=== PATIENT | female | born 1960 | race Caucasian/White ===

== ENCOUNTER 2023-03-03 12:23 | Outpatient (OUT) | payer OTHER, SELFPAY ==
--- NOTE | 2023-03-03 17:35 | CONS_ITS ---
PROCEDURE DATE: ??03/03/2023 PROCEDURE:? Left sural nerve injection. PREOPERATIVE DIAGNOSIS:? 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 POSTOPERATIVE DIAGNOSIS:? 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 SOLUTION USED FOR INJECTION:? 2 mL of 2% lidocaine and 2% mL of 0.25% Marcaine and 40 mg of Kenalog, a total of 5 mL, and 1 mL used for the injection. IMMEDIATE COMPLICATIONS:? None. PROCEDURE:? After informed consent was obtained from the patient, placed in the supine position.? Skin overlying the area was prepped with alcohol.? A 25 gauge 1 ? inch needle was inserted into the area of the left sural nerve.? After encountering the same, demonstrated by paresthesia, we re-directed the needle tip and the paresthesia completely resolved.? We injected 1 mL of solution.? Post-procedure, she reports dramatic reduction in her pain symptoms.? STEFANO
== END 2023-03-03 12:24 | disposition home or self-care (01) ==
LOC: PM 12:23
PROVIDERS: Visit Provider Anesthesiology Pain Medicine
DX: G58.8 Other specified mononeuropathies (principal)
CPT/HCPCS: 64450; G0463

== ENCOUNTER 2023-04-07 13:19 | Outpatient (OUT) | payer OTHER, SELFPAY ==
--- NOTE | 2023-04-07 | CONS_ITS ---
CONSULTATION DATE: ??04/07/2023 TO:? Dr. Dangelo HISTORY:? Patient returns today complaining of pain in her left ankle area.? She has undergone two sural nerve injections.? She reports post-op significant reduction in pain symptoms in the immediate post procedural period, lasting for a short period of time, with recurrence of pain back to baseline.? Also, of note, she has been having progressive pain in the left davis area.? She denies any change in bowel and bladder habits or new sensorimotor changes in the lower extremities.? She discontinued taking tramadol and baclofen, stating ineffectiveness, and she also has stopped using topical lidocaine patch and/or gel because of also ineffectiveness and inconvenience. EXAMINATION:? Notable for patient having dysesthesia and hyperesthesia overlying the distribution of the left sural nerve.? Patient also had significant myofascial dysfunction involving the left anterior tibialis with concomitant dorsiflexion of her left foot. IMPRESSION:? 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 RECOMMENDATIONS:? At this point, I have asked her to re-try topical lidocaine to the area in gel form, and also consideration of possible trigger point injection of the left anterior tibialis at her next visit.? She is to contact us by telephone in approximately 10 days? time to update us on her response to the change in medication with the use of the lidocaine gel as opposed to lidocaine patch. As part of providing excellent, safe, comprehensive care, the following was completed at our patient's visit: 1. A medication reconciliation and review to ensure accurate knowledge of current/active medications, including asking our patients to inform us about any [id number] medications or herbal remedies/nutritional supplements/alternative remedies. 2. A review to specifically ensure our patients have had annual screening for: elevated body mass index (BMI, see intake chart for exact total), tobacco use, screening for depression, and screening for unhealthy alcohol use.? When screening is concerning, patients are provided with education and the specific recommendation to discuss the concerning health issue and treatment options with their primary care provider. STEFANO
== END 2023-04-07 13:20 | disposition home or self-care (01) ==
LOC: PM 13:19
PROVIDERS: Visit Provider Anesthesiology Pain Medicine
DX: G58.8 Other specified mononeuropathies (principal); G89.29 Other chronic pain
CPT/HCPCS: G0463

== ENCOUNTER 2023-04-10 19:46 | Emergency (ER) | payer OTHER, SELFPAY ==
[2023-04-10 19:49] VITALS: BP 164/87; PULSE 79; RESP 16; TEMP 36.7; O2SAT 100
--- NOTE | 2023-04-10 19:51 | ED.GENADUL1 ---
HPI - General Adult General Chief complaint: Syncope Stated complaint: SYNCOPY Time Seen by Provider: 04/10/23 19:51 History of Present Illness HPI narrative: Patient presents to emergency department complaining of syncope. She states she was at work at around 645 had some jaw pain. She tried to sit on It. At that she developed chest pain down into a sweat and she states when bystanders came by she had passed out. She didn't hit her head. Had loss of consciousness but immediately recovered when she hit the ground. She denies any neck pain. She denies any paresthesias or focal weakness. She denies any nausea, vomiting. She does not take any blood thinners. Patient states that as she is sitting here in the emergency department she is now developing pain over the area where she hit. She has no previous history of syncope. She states 10 years ago she had atrial fibrillation and had an ablation done. She's not had any problems since. Currently denies any chest pain, shortness of breath. She denied any palpitations prior to syncopal episode. She denies any visual disturbance, speech difficulties. She denies any fever, chills, or cough. She denies any abdominal pain, flank pain, hematuria, dysuria.She states however that when she was working and was very hot and she has not had her normal amount of fluid intake that she normally does. Related Data Home Medications Medication Instructions Recorded Confirmed VITAMIN D DAILY 03/03/23 atenolol 50 mg tablet 50 mg PO DAILY 03/03/23 03/03/23 ixekizumab 80 mg/mL subcutaneous 80 mg subcut .EVERY 4 WEEKS 03/03/23 03/03/23 syringe (Taltz Syringe) lisinopril 10 mg tablet 10 mg PO DAILY 03/03/23 03/03/23 metformin 850 mg tablet 850 mg PO BID 03/03/23 03/03/23 multivitamin 1 tab PO DAILY 03/03/23 03/03/23 pravastatin 80 mg tablet 80 mg PO DAILY 03/03/23 03/03/23 tramadol 50 mg tablet 50 mg PO BID 03/03/23 03/03/23 Previous Rx's Medication Instructions Recorded cephalexin 500 mg capsule 500 mg PO TID 7 days #21 caps 04/10/23 Allergies Allergy/AdvReac Type Severity Reaction Status Date / Time eletriptan [From Relpax] Allergy Unknown Verified 04/10/23 19:58 Review of Systems ROS Status of ROS 10 or more systems reviewed and unremarkable except as noted in history and below Exam Narrative Exam Narrative: Nurses notes and vital signs reviewed and patient is not hypoxic. General: Nontoxic, Well-appearing and in no apparent distress. Skin: Warm, dry, no pallor noted. No Rash Head: Normocephalic, atraumatic. Neck: Supple, non-tender. Eye: Pupils are equal, round and EOMI. No scleral icterus. Ears, Nose, Mouth, and Throat: TM clear, no posterior oropharynx erythema or nasal mucosal hypertrophy, uvula is mid-line Oral mucosa is moist Cardiovascular: Regular Rate and Rhythm without murmur, gallop or rub. Respiratory: No accessory muscle use or respiratory distress. Lungs are clear to auscultation, no wheezing, rales or rhonchi Chest Wall: no tenderness Back: No midline thoracic or lumbar vertebral tenderness. No CVA tenderness Musculoskeletal: normal ROM, no calf or popliteal tenderness, no lower extremity edema/swelling GI: Abdomen is soft, non-distended. Normal bowel sounds. No masses appreciated. No tenderness to palpation. No rebound, guarding, or rigidity noted. Neurological: A&O x4. No cranial nerve dysfunction observed. No truncal ataxia. Moves all extremities. Sensation intact. Psychiatric: Cooperative and interactive. Normal mood and affect. Constitutional Vital Signs, click to edit/add: Last Vital Signs Temp 98.1 F 04/10/23 22:29 Pulse 69 04/10/23 22:29 Resp 14 04/10/23 22:29 BP 129/63 04/10/23 22:29 Pulse Ox 100 04/10/23 22:29 O2 Del Method Room Air 04/10/23 22:29 Course Vital Signs Vital signs: Vital Signs Temperature 98.0 F 04/10/23 19:49 Pulse Rate 79 04/10/23 19:49 Respiratory Rate 16 04/10/23 19:49 Blood Pressure 164/87 H 04/10/23 19:49 Pulse Oximetry 100 04/10/23 19:49 Oxygen Delivery Method Room Air 04/10/23 19:49 Temperature 98.1 F 04/10/23 22:29 Pulse Rate 69 04/10/23 22:29 Respiratory Rate 14 04/10/23 22:29 Blood Pressure 129/63 04/10/23 22:29 Pulse Oximetry 100 04/10/23 22:29 Oxygen Delivery Method Room Air 04/10/23 22:29 Medical Decision Making MDM Narrative Medical decision making narrative: EKG without any arrhythmia, patient had an IV establishedd was given [address] scan of the brain was done and is unremarkable. Labs show dehydration hypomagnesemia. Patient was given 2 g of magnesium IV. She was also covered with Rocephin for urinary tract infection. Patient will be placed on Keflex. Advised to continue drinking plenty of fluids. She is follow-up with primary care doctor as an outpatient. At this time the patient is without objective evidence of an acute process requiring hospitalization or inpatient management. The patient has remained hemodynamically stable. No additional indication for emergent studies at this time. I answered all questions. Discussed discharge instructions including standard anticipatory guidance and what should prompt a return to the emergency department, including if they get worse are not getting better or develops any new or concerning symptoms. I've given them specific time frame in which to follow-up, and who to follow-up with. The patient demonstrates understanding. Patient is nontoxic and stable for discharge with outpatient follow-up. This note was created with the assistance of a speech recognition program. Although the intention is to generate documents that actually reflects the content of the visit, no guarantees can be provided that every mistake has been identified and corrected by editing. Lab Data Lab results reviewed: Yes I reviewed the patient's lab results Labs: Lab Results 04/10/23 04/10/23 Range/Units 20:04 20:30 WBC 10.5 (4.0-11.0) 10^3/uL RBC 4.13 L (4.20-5.40) 10^6/uL Hgb 12.5 (12.0-16.0) g/dL Hct 37.9 (36.0-48.0) % MCV 91.8 (81.0-99.0) fL MCH 30.3 (26.7-34.0) pg MCHC 33.0 (29.9-35.2) g/dL RDW 13.2 (11.0-15.0) % Plt Count 269 (150-450) 10^3/uL MPV 9.8 (9.5-13.5) fL Neut % (Auto) 73.1 (43.0-75.0) % Lymph % (Auto) 18.0 L (20.5-60.0) % [place] % (Auto) 7.0 (1.7-12.0) % Eos % (Auto) 0.6 L (0.9-7.0) % Baso % (Auto) 0.6 (0.2-2.0) % Neut # (Auto) 7.7 H (1.4-6.5) 10^3/uL Lymph # (Auto) 1.9 (1.2-3.8) 10^3/uL [place] # (Auto) 0.7 (0.3-0.8) 10^3/uL Eos # (Auto) 0.1 (0.0-0.7) 10^3/uL Baso # (Auto) 0.1 (0.0-0.1) 10^3/uL Abs Immat Gran (auto) 0.07 H (0.00-0.03) 10^3/uL Imm/Tot Granulo (auto) 0.7 H (0.0-0.5) % Sodium 141 (136-145) mmol/L Potassium 4.0 (3.5-5.1) mmol/L Chloride 107 (98-107) mmol/L Carbon Dioxide 23.8 (21.0-32.0) mmol/L Anion Gap 14.2 BUN 21.0 H (7.0-18.0) mg/dL Creatinine 0.97 (0.55-1.02) mg/dL Est GFR ( Amer) >60 (>=60) Est GFR (Non-Af Amer) 58 L (>=60) BUN/Creatinine Ratio 21.6 Glucose 247 H (74-106) mg/dL Calcium 9.2 (8.5-10.1) mg/dL Magnesium 1.6 L (1.8-2.4) mg/dL Total Bilirubin 0.2 (0.2-1.0) mg/dL AST 26 (15-37) U/L ALT 45 (14-59) U/L Alkaline Phosphatase 75 (46-116) U/L Troponin I High Sens 7.2 (4.0-51.3) pg/mL Total Protein 7.2 (6.4-8.2) g/dL Albumin 3.5 (3.4-5.0) g/dL Globulin 3.7 g/dL Albumin/Globulin Ratio 0.9 Urine Color Lt. yellow (YELLOW) Urine Clarity Clear (CLEAR) Urine pH 6.5 (5.0-9.0) Ur Specific [place] 1.025 (1.005-1.025) Urine Protein 100 A (NEG/TRACE) mg/dL Urine Glucose (UA) 250 A (NEGATIVE) mg/dL Urine Ketones Negative (NEGATIVE) mg/dL Urine Occult Blood Trace-i (NEGATIVE) Urine Nitrite Positive A (NEGATIVE) Urine Bilirubin Negative (NEGATIVE) Urine Urobilinogen 0.2 (0.2-1.0) EU/dL Ur Leukocyte Esterase Trace A (NEGATIVE) Urine RBC 0-2 (0-2) #/HPF Urine WBC 10-20 A (NONE SEEN) #/HPF Ur Squamous Epith Cells Few A (NONE/RARE) #/LPF Urine Crystals None seen (None Seen) #/HPF Urine Bacteria Large A (NONE SEEN) #/HPF Urine Casts None seen (NONE SEEN) #/LPF Urine Mucus None seen (NONE SEEN) Ur Culture Indicated? Yes ECG Data Attestation: I personally reviewed and interpreted this ECG as follows: Discharge Plan Discharge Chief Complaint: Syncope Clinical Impression: UTI (urinary tract infection), Syncope, Dehydration, Hypomagnesemia Patient Disposition: Home, Self-Care Time of Disposition Decision: 23:22 Condition: Good Mode of Transportation: Private Vehicle Prescriptions / Home Meds: New cephalexin 500 mg capsule 500 mg PO TID 7 Days Qty: 21 0RF No Action atenolol 50 mg tablet 50 mg PO DAILY multivitamin Tablet 1 tab PO DAILY pravastatin 80 mg tablet 80 mg PO DAILY Taltz Syringe 80 mg/mL syringe 80 mg subcut .EVERY 4 WEEKS VITAMIN D DAILY lisinopril 10 mg tablet 10 mg PO DAILY metformin 850 mg tablet 850 mg PO BID tramadol 50 mg tablet 50 mg PO BID Instructions: Dehydration (ED), Urinary Tract Infection in Women (ED), Syncope (ED) Stand Alone Forms: Portal Instructions Referrals: JOANN BRAUN APRN [Physician] - 1 week Discharge Date/Time: 04/11/23 00:20
--- NOTE | 2023-04-10 19:59 | ECG_ITS ---
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
[2023-04-10 20:13] LABS: Basophils Absolute Auto 0.1 10^3/uL (0.0-0.1); Basophils Percent Auto 0.6 % (0.2-2.0); Eosinophils Absolute Auto 0.1 10^3/uL (0.0-0.7); Eosinophils Percent Auto 0.6 % (0.9-7.0); Hematocrit 37.9 % (36.0-48.0); Hemoglobin 12.5 g/dL (12.0-16.0); Immature Granulocytes Abs Auto 0.07 10^3/uL (0.00-0.03); Immature Granulocytes Pct Auto 0.7 % (0.0-0.5); Lymphocytes Absolute Auto 1.9 10^3/uL (1.2-3.8); Mean Corpuscular Hemoglobin 30.3 pg (26.7-34.0); Mean Corpuscular Volume 91.8 fL (81.0-99.0); Mean Platelet Volume 9.8 fL (9.5-13.5); Monocytes Absolute Auto 0.7 10^3/uL (0.3-0.8); Neutrophils Absolute Auto 7.7 10^3/uL (1.4-6.5); Neutrophils Percent Auto 73.1 % (43.0-75.0); Platelet Count 269 10^3/uL (150-450); Red Blood Count 4.13 10^6/uL (4.20-5.40); Red Cell Distribution Width 13.2 % (11.0-15.0); White Blood Count 10.5 10^3/uL (4.0-11.0)
[2023-04-10] MEDS: 0.9 % SODIUM CHLORIDE 1,000 ML 999 ML IV (20:29)
[2023-04-10 20:32] LABS: Alanine Aminotransferase 45 U/L (14-59); Albumin Globulin Ratio 0.9; Albumin Level 3.5 g/dL (3.4-5.0); Alkaline Phosphatase 75 U/L (46-116); Anion Gap 14.2; Aspartate Amino Transferase 26 U/L (15-37); BUN Creatinine Ratio 21.6; Bilirubin Total 0.2 mg/dL (0.2-1.0); Calcium 9.2 mg/dL (8.5-10.1); Carbon Dioxide 23.8 mmol/L (21.0-32.0); Chloride 107 mmol/L (98-107); Estimated GFR (African America >60 (>=60); Estimated GFR (Non-African Ame 58 (>=60); Globulin 3.7 g/dL; Glucose 247 mg/dL (74-106); Magnesium 1.6 mg/dL (1.8-2.4); Sodium 141 mmol/L (136-145); Total Protein 7.2 g/dL (6.4-8.2); Troponin I High Sensitivity 7.2 pg/mL (4.0-51.3)
--- NOTE | 2023-04-10 20:41 | CT_ITS ---
The [address] [address] Patient Name: BRENDA YANG MRN: [id number] date: 1960 Sex: F Assigned Patient Location: ER Current Patient Location: ER Accession/Order Number: [id number] Exam Date: 04/10/2023 21:00 Report Date: 04/10/2023 22:22 At the request of: SERGEI MADERA Procedure: CT head/brain wo con EXAMINATION: CT head/brain wo con, 04/10/2023 9:00 PM EDT HISTORY: syncope COMPARISON: None. TECHNIQUE: CT scan of the head was performed without IV contrast. CT dose reduction technique was used, including Automated Exposure Control. FINDINGS: BRAIN PARENCHYMA/CSF SPACES: Ventricles are normal in size for age. There is no hemorrhage, mass effect or midline shift. There are no other significant findings. PARANASAL SINUSES: Mild opacification of the right ethmoid air cells consistent with sinusitis. SKULL BASE AND CALVARIUM: Normal. EXTRACRANIAL SOFT TISSUES: Normal. CT/CT head/brain wo con IMPRESSION: 1. No acute intracranial abnormality. 2. Mild right ethmoid sinusitis. Electronically authenticated by: CLARA GORDON Date: 04/10/2023 22:22
[2023-04-10 20:50] LABS: Bilirubin Urine NEGATIVE (NEGATIVE); Blood Urine TRACE-I (NEGATIVE); Clarity Urine CLEAR (CLEAR); Color Urine LT. YELLOW (YELLOW); Glucose Urine UA 250 mg/dL (NEGATIVE); Ketones Urine NEGATIVE (NEGATIVE); Leukocyte Esterase Urine TRACE (NEGATIVE); Nitrite Urine POSITIVE (NEGATIVE); Protein Urine 100 mg/dL (NEG/TRACE); Specific Gravity Urine 1.025 (1.005-1.025); Urobilinogen Urine 0.2 EU/dL (0.2-1.0); pH Urine 6.5 (5.0-9.0)
[2023-04-10 20:53] LABS: Urine Microscopic Indicated YES
[2023-04-10 21:01] LABS: Bacteria Urine LARGE #/HPF (NONE SEEN); Cast Seen? NONE SEEN #/LPF (NONE SEEN); Crystals Seen? None Seen #/HPF (None Seen); Mucus Urine NONE SEEN (NONE SEEN); RBC Urine 0-2 #/HPF (0-2); Squamous Epithelial Cell Urine FEW #/LPF (NONE/RARE); Urine Culture Indicated YES
[2023-04-10] MEDS: MAGNESIUM SULFATE IN WATER 50 ML IV (21:24)
[2023-04-10 21:27] VITALS: BP 134/70; PULSE 72; RESP 14; O2SAT 100
[2023-04-10] MEDS: CEFTRIAXONE 1,000 MG in 0.9 % SODIUM CHLORIDE 50 ML 100 MG IV (22:25)
[2023-04-10 22:29] VITALS: BP 129/63; PULSE 69; RESP 14; TEMP 36.7; O2SAT 100
== END 2023-04-11 00:20 | disposition home or self-care (01) ==
PROVIDERS: Emergency Provider Emergency Medicine
DX: R55 Syncope and collapse (principal); N39.0 Urinary tract infection, site not specified; E86.0 Dehydration; E83.42 Hypomagnesemia; Z79.899 Other long term (current) drug therapy; Z79.84 Long term (current) use of oral hypoglycemic drugs
CPT/HCPCS: 36415; 70450; 80053; 81001; 83735; 84484; 85025; 87086; 87150; 87186; 93005; 96361; 96365; 96367; 99285

== ENCOUNTER 2023-04-17 19:15 | Emergency (ER) | payer OTHER, SELFPAY ==
[2023-04-17] VITALS (15 sets, daily range): BP systolic 102–173; BP diastolic 59–73; PULSE 66–87; RESP 10–16; TEMP 36.6; O2SAT 94–100; BMI 21.9
--- NOTE | 2023-04-17 19:28 | ED.CHESTPAI1 ---
HPI - Chest Pain General Chief Complaint: Chest Pain Stated Complaint: syncope Time Seen by Provider: 04/17/23 19:23 Source: patient Mode of arrival: walk-in Limitations: no limitations History of Present Illness HPI narrative: past history of hyperlipidemia, HTN, DM and daily smoker. Seen here last week after episode of chest pain and syncope at work. Discharged home. At work tonight and experienced bilat jaw pain and chest pain again. Also very sweaty. Lasted about 10 minutes. No asymptomatic. No recurrence of syncope. no associated nausea or vomiting MD complaint: Reports chest pain Risk Factors Coronary artery disease risk factors: diabetes, smoking history, hyperlipidemia and hypertension Related Data Home Medications Medication Instructions Recorded Confirmed VITAMIN D DAILY 03/03/23 atenolol 50 mg tablet 50 mg PO DAILY 03/03/23 03/03/23 ixekizumab 80 mg/mL subcutaneous 80 mg subcut .EVERY 4 WEEKS 03/03/23 03/03/23 syringe (Taltz Syringe) lisinopril 10 mg tablet 10 mg PO DAILY 03/03/23 03/03/23 metformin 850 mg tablet 850 mg PO BID 03/03/23 03/03/23 multivitamin 1 tab PO DAILY 03/03/23 03/03/23 pravastatin 80 mg tablet 80 mg PO DAILY 03/03/23 03/03/23 tramadol 50 mg tablet 50 mg PO BID 03/03/23 03/03/23 Previous Rx's Medication Instructions Recorded cephalexin 500 mg capsule 500 mg PO TID 7 days #21 caps 04/10/23 Allergies Allergy/AdvReac Type Severity Reaction Status Date / Time eletriptan [From Relpax] Allergy Unknown Verified 04/10/23 19:58 Review of Systems ROS Status of ROS 10 or more systems reviewed and unremarkable except as noted in history and below Exam Constitutional Vital Signs, click to edit/add: Last Vital Signs Temp 97.8 F 04/17/23 19:17 Pulse 76 04/17/23 21:14 Resp 15 04/17/23 20:50 BP 119/59 04/17/23 21:31 Pulse Ox 98 04/17/23 21:14 O2 Del Method Room Air 04/17/23 19:25 Common normals: no apparent distress, average body habitus and oriented x3 Eye Common normals: PERRL, EOMs intact bilaterally and conjunctivae normal Respiratory Common normals: normal respiratory effort, no retractions and no use of accessory muscles Cardio Common normals: no JVD, regular rate, regular rhythm, S1 normal heart sound and S2 normal heart sound GI Common normals: Normal to inspection, nondistended, normoactive bowel sounds present, soft to palpation and non-tender Extremity Common normals: normal to inspection and full ROM Neuro Common normals: oriented x3, CN's II-XII intact bilaterally, moves all extremities and no focal motor deficits Psych Appearance: grossly normal Course Vital Signs Vital signs: Vital Signs Temperature 97.8 F 04/17/23 19:17 Pulse Rate 81 04/17/23 19:17 Respiratory Rate 16 04/17/23 19:17 Blood Pressure 173/72 H 04/17/23 19:17 Pulse Oximetry 98 04/17/23 19:17 Oxygen Delivery Method Room Air 04/17/23 19:17 Temperature 97.8 F 04/17/23 19:17 Pulse Rate 76 04/17/23 21:14 Respiratory Rate 15 04/17/23 20:50 Blood Pressure 119/59 04/17/23 21:31 Pulse Oximetry 98 04/17/23 21:14 Oxygen Delivery Method Room Air 04/17/23 19:25 MDM - Chest Pain MDM Narrative Medical decision making narrative: seen last week after episode of chest pain and syncope. Returns tonight after episode of chest pain and bilat jaw pain associated with diaphoresis. Lasted about 10 minutes and then resolved. Multiple cardiac risk factors including DM, HTN, hyperlipidemia and daily smoker. Serial troponins neg. d-dimer elevated but CTA chest neg for PE. Patient is not wanting to stay overnight in the hospital. Did agree to stay for the 2nd troponin. Informed that her history is very consistent with cardiac cause for her presentation. States she understands this and prefers to follow up with her doctor Lab Data Labs: Lab Results 04/17/23 04/17/23 Range/Units 19:20 21:35 WBC 10.0 (4.0-11.0) 10^3/uL RBC 4.44 (4.20-5.40) 10^6/uL Hgb 13.3 (12.0-16.0) g/dL Hct 41.9 (36.0-48.0) % MCV 94.4 (81.0-99.0) fL MCH 30.0 (26.7-34.0) pg MCHC 31.7 (29.9-35.2) g/dL RDW 13.4 (11.0-15.0) % Plt Count 296 (150-450) 10^3/uL MPV 10.1 (9.5-13.5) fL Neut % (Auto) 72.3 (43.0-75.0) % Lymph % (Auto) 17.2 L (20.5-60.0) % [place] % (Auto) 7.7 (1.7-12.0) % Eos % (Auto) 1.1 (0.9-7.0) % Baso % (Auto) 0.8 (0.2-2.0) % Neut # (Auto) 7.3 H (1.4-6.5) 10^3/uL Lymph # (Auto) 1.7 (1.2-3.8) 10^3/uL [place] # (Auto) 0.8 (0.3-0.8) 10^3/uL Eos # (Auto) 0.1 (0.0-0.7) 10^3/uL Baso # (Auto) 0.1 (0.0-0.1) 10^3/uL Abs Immat Gran (auto) 0.09 H (0.00-0.03) 10^3/uL Imm/Tot Granulo (auto) 0.9 H (0.0-0.5) % D-Dimer 0.76 H* (<=0.59) mg/L FEU Sodium 141 (136-145) mmol/L Potassium 3.9 (3.5-5.1) mmol/L Chloride 106 (98-107) mmol/L Carbon Dioxide 26.1 (21.0-32.0) mmol/L Anion Gap 12.8 BUN 22.0 H (7.0-18.0) mg/dL Creatinine 1.06 H (0.55-1.02) mg/dL Est GFR ( Amer) >60 (>=60) Est GFR (Non-Af Amer) 52 L (>=60) BUN/Creatinine Ratio 20.8 Glucose 207 H (74-106) mg/dL Calcium 8.9 (8.5-10.1) mg/dL Troponin I High Sens 8.3 12.2 (4.0-51.3) pg/mL Discharge Plan Discharge Chief Complaint: Chest Pain Clinical Impression: Chest pain Patient Disposition: Home, Self-Care Prescriptions / Home Meds: No Action atenolol 50 mg tablet 50 mg PO DAILY multivitamin Tablet 1 tab PO DAILY pravastatin 80 mg tablet 80 mg PO DAILY Taltz Syringe 80 mg/mL syringe 80 mg subcut .EVERY 4 WEEKS VITAMIN D DAILY lisinopril 10 mg tablet 10 mg PO DAILY metformin 850 mg tablet 850 mg PO BID tramadol 50 mg tablet 50 mg PO BID cephalexin 500 mg capsule 500 mg PO TID 7 Days Qty: 21 0RF Instructions: Chest Pain (ED) Additional Instructions: follow up with your doctor thursday. Return immediately if chest pain recurs Stand Alone Forms: Portal Instructions Referrals: Physician,Non-Staff, MD [Primary Care Provider] - 1 week
--- NOTE | 2023-04-17 19:30 | ECG_ITS ---
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
--- NOTE | 2023-04-17 19:30 | XR_ITS ---
The [address] [address] Patient Name: BRENDA YANG MRN: [id number] date: 1960 Sex: F Assigned Patient Location: ER Current Patient Location: ER Accession/Order Number: [id number] Exam Date: 04/17/2023 19:38 Report Date: 04/17/2023 20:03 At the request of: NELLY RICO Procedure: XR chest 1V EXAMINATION: XR chest 1V HISTORY: Chest pain COMPARISON: None. TECHNIQUE: Portable chest FINDINGS: The lung parenchyma is free of consolidation or infiltrate. No pneumothorax or pleural effusion. The cardiac, mediastinal and hilar contours are normal. The visualized osseous structures exhibit no gross abnormality. XR/XR chest 1V IMPRESSION: No acute cardiopulmonary abnormality. Electronically authenticated by: AMALIA WASHINGTON Date: 04/17/2023 20:03
[2023-04-17 19:37] LABS: Basophils Absolute Auto 0.1 10^3/uL (0.0-0.1); Basophils Percent Auto 0.8 % (0.2-2.0); Eosinophils Absolute Auto 0.1 10^3/uL (0.0-0.7); Eosinophils Percent Auto 1.1 % (0.9-7.0); Hematocrit 41.9 % (36.0-48.0); Hemoglobin 13.3 g/dL (12.0-16.0); Immature Granulocytes Abs Auto 0.09 10^3/uL (0.00-0.03); Immature Granulocytes Pct Auto 0.9 % (0.0-0.5); Lymphocytes Absolute Auto 1.7 10^3/uL (1.2-3.8); Lymphocytes Percent Auto 17.2 % (20.5-60.0); Mean Corpuscular HGB Conc 31.7 g/dL (29.9-35.2); Mean Corpuscular Volume 94.4 fL (81.0-99.0); Mean Platelet Volume 10.1 fL (9.5-13.5); Monocytes Absolute Auto 0.8 10^3/uL (0.3-0.8); Monocytes Percent Auto 7.7 % (1.7-12.0); Neutrophils Absolute Auto 7.3 10^3/uL (1.4-6.5); Neutrophils Percent Auto 72.3 % (43.0-75.0); Platelet Count 296 10^3/uL (150-450); Red Blood Count 4.44 10^6/uL (4.20-5.40); Red Cell Distribution Width 13.4 % (11.0-15.0)
[2023-04-17 19:50] LABS: Anion Gap 12.8; BUN Creatinine Ratio 20.8; Calcium 8.9 mg/dL (8.5-10.1); Carbon Dioxide 26.1 mmol/L (21.0-32.0); Chloride 106 mmol/L (98-107); Estimated GFR (African America >60 (>=60); Estimated GFR (Non-African Ame 52 (>=60); Glucose 207 mg/dL (74-106); Potassium 3.9 mmol/L (3.5-5.1); Sodium 141 mmol/L (136-145); Troponin I High Sensitivity 8.3 pg/mL (4.0-51.3)
[2023-04-17 19:56] LABS: D Dimer 0.76 mg/L FEU (<=0.59)
--- NOTE | 2023-04-17 20:00 | CT_ITS ---
[address] [address] Patient Name: BRENDA YANG MRN: [id number] date: 1960 Sex: F Assigned Patient Location: ER Current Patient Location: ER Accession/Order Number: [id number] Exam Date: 04/17/2023 20:20 Report Date: 04/17/2023 20:54 At the request of: NELLY RICO Procedure: CT angio chest EXAM: CT angio chest HISTORY: chest pain COMPARISON: XR chest 04/17/2023. TECHNIQUE: Thin section transaxial slices were acquired through the chest with intravenous contrast per PE protocol. Coronal and sagittal reconstructed images were reviewed. FINDINGS: PULMONARY ARTERIES: There is good opacification of the pulmonary vasculature. No pulmonary arterial filling defects are present. VASCULATURE: No aneurysm. Mild atherosclerotic calcifications of thoracic aorta. LUNGS/AIRWAYS: No areas of consolidation or mass are seen. The central airways are patent. PLEURAL CAVITY: No pleural effusion or pneumothorax. HEART/PERICARDIUM: The heart is normal in size. No pericardial effusion. There are mild calcific plaques at LAD coronary artery. MEDIASTINAL/HILAR LYMPH NODES: No pathologically enlarged lymph nodes. CHEST WALL/AXILLA/LOWER NECK: Normal. VISUALIZED UPPER ABDOMEN: No acute abnormality. BONES: No acute process.. CT/CT angio chest IMPRESSION: 1. No evidence of pulmonary embolism. 2. No evidence of pneumonia. 3. Mild coronary atherosclerosis. Electronically authenticated by: ALEX PUGH Date: 04/17/2023 20:54
[2023-04-17 22:01] LABS: Troponin I High Sensitivity 12.2 pg/mL (4.0-51.3)
== END 2023-04-17 22:38 | disposition home or self-care (01) ==
PROVIDERS: Emergency Provider Internal Medicine
DX: R07.9 Chest pain, unspecified (principal); E78.5 Hyperlipidemia, unspecified; I10 Essential (primary) hypertension; E11.9 Type 2 diabetes mellitus without complications; F17.210 Nicotine dependence, cigarettes, uncomplicated; Z79.84 Long term (current) use of oral hypoglycemic drugs; Z79.899 Other long term (current) drug therapy
CPT/HCPCS: 36415; 71045; 71275; 80048; 84484; 85025; 85378; 93005; 99285; Q9967

== ENCOUNTER 2023-08-21 07:05 | Outpatient (RCR) | payer OTHER, SELFPAY ==
--- NOTE | 2023-05-25 14:52 | CR1_ITS ---
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
--- NOTE | 2023-06-01 17:19 | NUTR.NU ---
Met with Yvonne today for diet education - discussed balanced meals, reducing salt and saturated/trans fats, and choosing complex CHO. 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 Provided handouts and Dietitian contact information. Encouraged Yvonne to call with any other questions or concerns.
--- NOTE | 2023-06-22 15:17 | CR1_ITS ---
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
--- NOTE | 2023-07-22 07:57 | CR1_ITS ---
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
--- NOTE | 2023-08-19 12:44 | CR1_ITS ---
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
== END 2023-08-21 17:06 | disposition home or self-care (01) ==
LOC: CR 07:05
PROVIDERS: Visit Provider Internal Medicine Cardiovascular Disease
DX: Z95.5 Presence of coronary angioplasty implant and graft (principal); I21.9 Acute myocardial infarction, unspecified
CPT/HCPCS: 93797; 93798

== ENCOUNTER 2023-09-18 07:06 | Outpatient (RCR) | payer OTHER, SELFPAY | END 2023-09-18 13:05 | disposition home or self-care (01) | LOC: CR 07:06 | PROVIDERS: Visit Provider Internal Medicine Cardiovascular Disease | DX: I25.2 Old myocardial infarction (principal); Z95.5 Presence of coronary angioplasty implant and graft ==

== ENCOUNTER 2023-10-08 10:36 | Outpatient (OUT) | payer OTHER, SELFPAY ==
[2023-10-08 11:30] LABS: Basophils Absolute Auto 0.1 10^3/uL (0.0-0.1); Basophils Percent Auto 1.3 % (0.2-2.0); Eosinophils Absolute Auto 0.1 10^3/uL (0.0-0.7); Eosinophils Percent Auto 1.1 % (0.9-7.0); Hematocrit 37.8 % (36.0-48.0); Hemoglobin 11.7 g/dL (12.0-16.0); Immature Granulocytes Abs Auto 0.02 10^3/uL (0.00-0.03); Immature Granulocytes Pct Auto 0.3 % (0.0-0.5); Lymphocytes Absolute Auto 1.4 10^3/uL (1.2-3.8); Lymphocytes Percent Auto 20.3 % (20.5-60.0); Mean Corpuscular Hemoglobin 28.3 pg (26.7-34.0); Mean Corpuscular Volume 91.3 fL (81.0-99.0); Mean Platelet Volume 9.7 fL (9.5-13.5); Monocytes Absolute Auto 0.5 10^3/uL (0.3-0.8); Monocytes Percent Auto 7.5 % (1.7-12.0); Neutrophils Absolute Auto 4.9 10^3/uL (1.4-6.5); Neutrophils Percent Auto 69.5 % (43.0-75.0); Platelet Count 330 10^3/uL (150-450); Red Blood Count 4.14 10^6/uL (4.20-5.40); Red Cell Distribution Width 13.5 % (11.0-15.0); White Blood Count 7.1 10^3/uL (4.0-11.0)
[2023-10-08 12:35] LABS: Alanine Aminotransferase 22 U/L (14-59); Albumin Globulin Ratio 0.8; Albumin Level 3.3 g/dL (3.4-5.0); Alkaline Phosphatase 80 U/L (46-116); Anion Gap 14.1; Aspartate Amino Transferase 15 U/L (15-37); BUN Creatinine Ratio 22.1; Bilirubin Total 0.2 mg/dL (0.2-1.0); Calcium 9.2 mg/dL (8.5-10.1); Carbon Dioxide 26.3 mmol/L (21.0-32.0); Chloride 104 mmol/L (98-107); Chol HDL Ratio 3.1; Cholesterol 198 mg/dL (<=200); Estimated GFR (African America >60 (>=60); Estimated GFR (Non-African Ame >60 (>=60); Globulin 4.1 g/dL; Glucose 123 mg/dL (74-106); HDL Cholesterol 63 mg/dL (40-60); Potassium 4.4 mmol/L (3.5-5.1); Sodium 140 mmol/L (136-145); Total Protein 7.4 g/dL (6.4-8.2); Triglycerides 122 mg/dL (<=150); VLDL CHOLESTEROL 24.4 mg/dL
[2023-10-10 06:08] LABS: QuantiFERON-TB Gold Plus Negative (Negative)
== END 2023-10-08 10:37 | disposition home or self-care (01) ==
LOC: LAB 10:37
PROVIDERS: Visit Provider Dermatology
DX: L40.0 Psoriasis vulgaris (principal); Z79.899 Other long term (current) drug therapy
CPT/HCPCS: 36415; 80053; 80061; 85025; 86480

== ENCOUNTER 2024-10-05 09:47 | Outpatient (OUT) | payer OTHER, SELFPAY ==
--- OUTSIDE RECORDS SUMMARY | 2024-10-05 10:02 | XMS_ITS | CCD ---
Author Organization [facility] Care Team Providers Care Apricot Packer Name Role Phone Janet Acevedo Unavailable Maria Esther Ashby Unavailable RJ Ashby Attending Provider Huy MARES, Tommy Alva Attending Unavailab ashlee Quick PA-C, Rajni Valiente Referring Unava ilable Antolin DO, Bonita Ena Primary Care Unavailabl e Antolin DO, Bonita Ena Primary Care Unavailluz marina e Huy MARES, Tommy Alva Attending Unavailab ashlee Reis DPM, Tommy Avla Attending Unavailab le Antolin DO, Bonita Ena Primary Care Unavailabl e Antolin DO, Bonita Ena Primary Care Unavailluz marina e Huy DPM, Tommy Alva Attending Unavailab le Antolin DO, Bonita Ena Primary Care Unavailabl e Huy MARES, Tommy Alva Attending Unavailab CHRISTIE Moses Attending Unavailable CHRISTIE INTERIANO Admitting Unavailable HANNA, DR PAIGE Primary Care Unavailable OLLIEC, DR PAIGE Primary Care Unavailable ASH ., DR JORGE Whitley Admitting Unavailable GOFF ., DR JORGE Whitley Consulting Unavailable GOFF ., DR JORGE Whitley Attending Unavailable GOFF ., DR JORGE Whitley Admitting Unavailable GOFF ., DR JORGE Whitley Consulting Unavailable OLLIEC, DR PAIGE Primary Care Unavailable ASH ., DR JORGE Whitley Attending Unavailable LAKSHMIPATHY ., NARENDRANATH Admitting Rama vailable LAKSHMIPATHY ., NARENDINESATH Attending Rama vailable MISC, DR PAIGE Primary Care Unavailable LAKSHMIPATHY ., NARENDINESATH Consulting Rama vailable LAKSHMIPATHY ., NARENDINESATH Attending Rama vailable LAKSHMIPATHY ., NARENDRANATH Admitting Rama vailable LAKSHMIPATHY ., NARENDRANATH Consulting Rama vailable MISC, DR PAIGE Primary Care Unavailable HALKER ., FERNANDO Consulting Unavailable LAKSHMIPATHY ., NARENDRANATH Attending Rama vailable LAKSHMIPATHY ., NARENDRANATH Admitting Rama vailable LAKSHMIPATHY ., NARENDRANATH Consulting Rama vailable MISC, DR PAIGE Primary Care Unavailable MISC, DR PAIGE Primary Care Unavailable GOFF ., DR JORGE Whitley Admitting Unavailable GOFF ., DR JORGE Whitley Attending Unavailable MISC, DR PAIGE Consulting Unavailable GOFF ., DR JORGE Whitley Consulting Unavailable FAWWATristan, NEGRETE H Attending Unavailable WIECEK ., DR SARAI Vargas Consulting Unavailab le FAWWATristan, NEGRETE H Admitting Unavailable REQUEST, DR PEARSON LISTED Primary Care Unavaila ble WIECEJazlyn ., DR SARAI Vargas Procedure Practitioner Un available ZIEBER, DR CLARA Rosen Consulting Unavailable CASSY ., SERGEI Consulting Unavailable FAWWAD, NEGRETE H Consulting Unavailable KAT VILLAVICENCIO Consulting Unavailable CLARA NESBITT Consulting Unavailable MISC, DR PAIGE Primary Care Unavailable TOMMY REIS Consulting Unavailable TOMMY REIS Attending Unavailable TOMMY REIS Admitting Unavailable RAJNI QUICK Attending Unavailable REQUEST, DR LILI LISTED Primary Care Unavaila RAJNI Emery Admitting Unavailable ZIEBER, DR CLARA Rosen Consulting Unavailable RAJNI QUICK Consulting Unavailable HANNA, DR PAIGE Primary Care Unavailable CHRISTIE INTERIANO Admitting Unavailable CHRISTIE INTERIANO Attending Unavailable Kathya Chang Unavailable GENEVIEVE Chang Attending Provider [phone] NO FAMILY, PHYSICIAN Primary Care Provider Unava ilable HARISH Meneses Emergency Provider [phone] DO Bonita Santos Primary Care Provider TrentonDO Olu Admit Provider HullDO Olu Attending Provider HARISH Meneses Emergency Provider [phone] DO Bonita Santos Primary Care Provider TrentonDO Olu Admit Provider [phone] DO Simone Martinez Attending Provider Sergio Mcknightd Primary Care Provider [phone] Bonita Santos Unavailable Unavailable Unavailable Marck, Dr. Mahamed Encinas Attending Unava ilvicki Acharya, Dr. Mahamed Encinas Attending Unava ilvicki Acharya, Dr. Mahamed Encinas Referring Unava tammy Acharya, Dr. Mahamed Encinas Attending Unava ilChloé Holloway Unavailable HARISH Meneses Emergency Provider DO Bonita Santos Primary Care Provider TrentonDO Olu Admit Provider DO Simone Martinez Attending Provider [phone] GENEVIEVE Shea Attending Provider Cornelio, [facility]- Emily Anne Emergency Provider [phone] Bonita Santos DO Primary Care Provider NONE, XXXX Primary Care Physician Unavailab Chloé Phipps MD Primary Care Provider Nellie ACTIVITIES SPECIALIST, Dominic Hartman Unavailable MAHAMED ACHARYA Attending Unavailable BONITA SANTOS Primary Care Unavailable MAHAMED ACHARYA Attending Unavailable MAHAMED ACHARYA Referring Unavailable BONITA SANTOS Primary Care Unavailable Les Ciera M Attending Unavailable Les Ciera M Admitting Unavailable NON STAFF Primary Care Unavailable CRIS SANTOSEE G Attending Unavailable DOMINIC BALLARD Attending Unavailab DOMINIC Latham Attending Unavailab DOMINIC Latham Referring Unavailab MATEO Biggs Attending Unavailable ZAHIRA LUNDBERG Attending Unavailable XIAO MASCORRO Attending Unavailable DOMINIC BALLARD Attending Unavailab DOMINIC Latham Attending Unavailab HARISH Kyle Attending UnavailJoe Correa Attending Unavailable BONITA SANTOS Referring Unavailable HARISH PIZANO Attending UnavailJoe Correa Referring Unavailable Joe CARTAGENA Attending Unavailable Joe CARTAGENA Admitting Unavailable JERICA, HARISH Anne Admitting Unavailab HARISH Kyle Attending Unavailab HARISH Kyle Attending Unavailab HRAISH Kyle Attending Unavailab Ciera Agustin APRN Attending Provider NON STAFF Primary Care Provider Unavailabl e Allergies Allergy Classification Reported Allergen(s) Allergy Type Date of Onset Reaction(s) Facility (20 sources) eletriptan; Translations: [Relpax TABS] Drug Allergy 5 Dizziness (finding), Dizziness, Blurred vision, Disorientated (finding) [facility] (3 sources) eletriptan; Translations: [Relpax] Drug Allergy 3 [facility] Repository (2 sources) metFORMIN; Translations: [metFORMIN] Drug Allergy [facility] Repository (20 sources) Follicle Stimulating Hormone; Translations: [menotropins] Drug Allergy 3 Agitated [facility] (1 source) eletriptan Drug Allergy 5 Unknown [facility] (1 source) metFORMIN; Translations: [metformin] Drug Allergy Diarrhea (finding) [facility] (1 source) metFORMIN Drug Allergy 1 [facility] (1 source) eletriptan Drug Allergy 4 [facility] Repository Medications Current Medications Medication Drug Class(es) Dates Sig (Normalized) Sig (Original) amoxicillin 875 mg oral tablet (1 source) Penicillin-class Antibacterial Start: 05-06-2022 take 1 tablet by mouth every twelve hours Amoxicillin 875 MG 1 tablet Orally every 12 hrs for 10 days Apr, Active aspirin 81 mg oral capsule (20 sources) Platelet Aggregation Inhibitor, Nonsteroidal Anti-inflammatory Drug Start: 11-24-2023 take 1 mg by mouth every twenty-four hours aspirin 81 mg oral capsule mg cap(s), Oral, q24hr Start Date: 11/24/23 Status: Ordered Start: 04-28-2023 take 1 tablet by ken th once daily Aspirin 81 mg Tablet,Delayed Release (Dr/Ec) Active 81 MG PO Daily April 27, 2023 11:00pm aspirin 81 mg ch ewable tablet Chew 1 tablet (81 mg) once daily. Active Comment on above: Take 81 mg by mouth once daily. atorvastatin 80 mg oral tablet (20 sources) HMG-CoA Reductase Inhibitor Start: take 1 tablet by mouth once daily at bedtime atorvastatin (Lipitor) 80 mg tablet Indications: Mixed hyperlipidemia Take 1 tablet (80 mg) by mouth once daily at bedtime. 90 tablet 3 06/22/2024 Active Start: 04-30-2023 End: 06-22-2024 take 1 tablet by mouth once daily in the evening Atorvastatin 80 mg Tablet Active 80 MG PO Every evening April 29, 2023 11:00pm cephalexin 500 mg oral capsule (5 sources) Cephalosporin Antibacterial Start: 06-03-2024 End: 06-08-2024 take 1 capsule by mouth in the morning cephalexin (Keflex) 500 MG capsule Indications: Acute cystitis without hematuria Take 1 capsule (500 mg) by mouth in the morning and 1 capsule (500 mg) before bedtime. Do all this for 5 days. 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 90 tablet 3 12/17/2023 06/22/2024 Discontinued (Therapy completed) Start: 05-08-2023 End: 06-03-2024 clopidogrel (Plavix) 75 MG t ablet TAKE 8 TABLETS BY MOUTH FOR 1 DOSE THEN TAKE 1 TABLET DAILY THERAFTER. STOP BRILINTA 05/08/2023 06/03/2024 Discontinued Start: 05-08-2023 End: 12-17-2023 clopidogrel 75 mg Tab 75 mg = 1 tab(s), Daily Start Date: 11/24/23 Status: Ordered cranberry preparation 200 mg oral capsule (6 sources) Non-Standardized Food Allergenic Extract, Non-Standardized Plant Allergenic Extract Cranberry 200 MG capsule Take by mouth Active estradiol 0.1 mg/ml vaginal cream (8 sources) Estrogen Start: 2023 estradiol 0.1 mg/g Vag Crm 1 gm, Vaginal, MonWedFri, 42.5 gm, Refill(s) 6, [facility] #[id number], 170, cm, 12/29/23 10:37:00 EDT, Height/Length Dosing, 66, kg, 11/24/23 9:34:00 EDT, Weight Dosing Start Date: 12/29/23 Status: Ordered Start: 11-24-2023 End: 06-03-2024 Estrace 0.1 MG/GM vaginal cr eam See Instructions, 42.5 gm, Refill(s) 0, Apply pea sized amount vaginally nightly x3wks, then 3x/wk there after., [facility] #[id number], 170, cm, 11/24/23 9:34:00 EDT, Height/Length Dosing, 66, kg, 11/24/23 9:34:00 EDT, Weight Dosing 11/24/2023 06/03/2024 Discontinued Start: 11-24-2023 Estrace 0.1 mg /g Cream See Instructions, 42.5 gm, Refill(s) 0, Apply pea sized amount vaginally nightly x3wks, then 3x/wk there after., [facility] #[id number], 170, cm, 11/24/23 9:34:00 EDT, Height/Length Dosing, 66, kg, 11/24/23 9:34:00 EDT, Weight Dosing Start Date: 11/24/23 Status: Ordered ferrous sulfate 325 mg delayed release oral tablet (18 sources) Start: 02-13-2024 End: 06-17-2024 take 1 tablet by mouth in the morning ferrous sulfate (Fe Tabs) 325 (65 Fe) MG EC tablet Indications: Iron deficiency anemia, unspecified iron deficiency anemia type Take 1 tablet (325 mg) by mouth in the morning and 1 tablet (325 mg) before bedtime. Do not crush, chew, or split.. 180 tablet 06/17/2024 Active Start: 02-13-2024 take 1 tablet by ken th once daily at breakfast FeroSuL tablet Take 1 tablet (325 mg) by mouth once daily with breakfast. 02/13/2024 Active glimepiride 4 mg oral tablet (20 sources) Sulfonylurea Start: 06-15-2023 End: 06-17-2025 take 1 tablet by mouth twice daily Glimepiride 4 mg tablet Active 4 MG PO Twice daily 180 October 04, 2024 9:26am Start: 04-28-2023 End: 10-04-2024 take 1 tablet by mouth once daily Glimepiride 4 mg Tablet Discontinued 4 MG PO Daily April 27, 2023 11:00pm October 04, 2024 9:28am take 1 tablet by ken th twice daily Glimepiride 4 MG Oral Tablet TAKE 1 TABLET TWICE DAILY. Quantity: 0 Refills: 0 Ordered: 08-May-2023 DO Active Glimepiride Acti ve Glimepiride Not- Taking hydrOXYzine pamoate 25 mg oral capsule (16 sources) Antihistamine Start: 08-03-2023 End: 06-03-2024 take 1 capsule by mouth every six hours for anxiety hydrOXYzine pamoate (Vistaril) 25 MG capsule Indications: Anxiety attack (CMS/HCC) take 1 capsule by mouth every 6 hours if needed for anxiety FOR UP TO 10 DAYS 30 capsule 2 08/03/2023 06/03/2024 Discontinued Start: 04-28-2023 End: 10-04-2024 take 1 capsule by mouth once daily hydrOXYzine pamoate (Vistaril) 25 mg capsule Take 1 capsule (25 mg) by mouth once daily. 08/03/2023 06/22/2024 Discontinued (Discontinued by another clinician) take 1 tablet by ken th every twenty-four hours hydrOXYzine HCl 25 MG 1 tablet as needed Orally Once a day Active 1 ml ixekizumab 80 mg/ml auto-injector (20 sources) Interleukin-17A Antagonist Start: 04-28-2023 Taltz Autoinjector 8 0 mg/mL subcutaneous solution 80 mg, SubCutaneous, q4wk Start Date: 11/24/23 Status: Ordered inject 1 mL by subcu taneous injection every month Ixekizumab (Taltz) 80 MG/ML injection 1 ml Subcutaneous once monthly Active inject 1 mL by subcutaneous inje ction once ixekizumab (Taltz Syringe) 80 mg/mL injection Inject 1 mL (80 mg) under the skin every 28 (twenty-eight) days. Active inject 1 mL by subcu taneous injection every month Taltz 80 MG/ML 1 mL Subcutaneous Once a month Active lisinopril 10 mg oral tablet (20 sources) Angiotensin Converting Enzyme Inhibitor Start: 06-22-2024 take 1 tablet by mouth once daily lisinopril 10 mg tablet Indications: Primary hypertension Take 1 tablet (10 mg) by mouth once daily. 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 180 tablet 3 06/22/2024 Active Start: 11-24-2023 Metoprolol tar trate 50 mg Tab 50 mg = 1 tab(s), BID Start Date: 11/24/23 Status: Ordered Start: 04-30-2023 End: 06-22-2024 take 1 tablet by mouth twice daily Metoprolol Tartrate 50 mg Tablet Active 50 MG PO Twice daily 60 April 29, 2023 11:00pm take 1 capsule by [facility] once daily Metoprolol Succinate 50 MG 1 capsule Orally Once a day Active nitrofurantoin 100 mg oral tablet (11 sources) Nitrofuran Antibacterial Start: 11-24-2023 take 100 mg by mouth once daily nitrofurantoin 100 mg, Oral, Daily Start Date: 11/24/23 Status: Ordered Start: 04-28-2023 End: 10-04-2024 take 1 capsule by mouth once daily Nitrofurantoin Macrocrystal 100 mg capsule Discontinued 100 MG PO Daily April 27, 2023 11:00pm October 04, 2024 9:07am Nitrofurantoin 1 00 MG CAPS TAKE 1 CAPSULE AT BEDTIME. Quantity: 0 Refills: 0 Ordered: 08-May-2023 DO Active Nitrostat (20 sources) Nitrate Vasodilator Start: 11-24-2023 Nitrostat SubLingual, q5min Start Date: 11/24/23 Status: Ordered Start: 04-28-2023 Nitroglycerin 0.4 mg tablet, sublingual Active 0.4 MG SUBLINGUAL As Directed as needed for Chest Pain April 27, 2023 11:00pm Take one tablet every 5 minutes for cp, up to 3 doses. Start: 04-23-2023 take 1 tablet under the tongue every twenty-four hours as needed nitroglycerin (Nitrostat) 0.[address] 0.4 mg under the tongue Daily as needed. 04/23/2023 Active Nitrostat 0.4 MG as directed Sublingual Active pioglitazone 30 mg oral tablet (20 sources) Peroxisome Proliferator Receptor alpha Agonist, Peroxisome Proliferator Receptor gamma Agonist, Thiazolidinedione Start: 03-18-2023 End: 10-04-2024 take 1 tablet by mouth once daily Pioglitazone 30 mg tablet Active 30 MG PO Daily October 04, 2024 9:27am sertraline 25 mg oral tablet (20 sources) Serotonin Reuptake Inhibitor Start: 10-04-2024 take 1 tablet by mouth once daily Sertraline 25 mg tablet Active 25 MG PO Daily October 04, 2024 9:28am Start: 07-28-2024 take 2 tablets by [facility] once daily sertraline (Zoloft) 25 MG tablet Indications: Recurrent major depressive disorder, in partial remission (HCC) (CMS/HCC) Take 2 tablets (50 mg) by mouth Daily 90 tablet 1 07/28/2024 Active Start: 07-28-2024 take 2 tablets by mo uth once daily sertraline (Zoloft) 25 MG tablet Indications: Recurrent major depressive disorder, in partial remission (HCC) (CMS/HCC) Take 2 tablets (50 mg) by mouth Daily 90 tablet 1 07/28/2024 Active Start: 06-17-2024 End: 07-28-2024 take 2 tablets by mouth once daily sertraline (Zoloft) 25 MG tablet Indications: Recurrent major depressive disorder, in partial remission (HCC) (CMS/HCC) Take 2 tablets (50 mg) by mouth Daily 90 tablet 1 06/17/2024 07/28/2024 Discontinued (Reorder) Start: 04-28-2023 End: 10-04-2024 sertraline 25 mg Tab 25 mg = 1 tab(s), Daily Start Date: 11/24/23 Status: Ordered sulfamethoxazole 400 mg / trimethoprim 80 mg oral tablet (2 sources) Dihydrofolate Reductase Inhibitor Antibacterial, Sulfonamide Antimicrobial Start: 09-20-2024 End: 09-30-2024 Bactrim 400 mg-80 mg Tab 1 tab(s), Oral, BID for 10 day(s), 20 tab(s), Refill(s) 0, [facility], 170, cm, 09/20/24 11:31:00 EST, Height/Length Dosing, 68.8, kg, 09/20/24 11:31:00 EST, Weight Dosing Start Date: 09/20/24 Stop Date: 09/30/24 Status: Ordered Completed/Discontinued Medications Medication Drug Class(es) Dates Sig (Normalized) Sig (Original) atenolol 50 mg oral tablet (11 sources) beta-Adrenergic Reji Start: 06-07-2008 End: 04-30-2023 take 1 tablet by mouth once daily Atenolol 50 mg Tablet Discontinued 50 MG PO Daily April 27, 2023 11:00pm April 30, 2023 2:30pm Comment on above: Take one(1) tablet d aily. buPROPion (6 sources) Aminoketone buPROPion HCl ER (SR) Active buPROPion HCl ER (SR) Not-Taking Calcium Carbonate / vitamin D3 (1 source) take 600 mg by mouth once daily CALCIUM CARBONATE/VITAMIN D3 (CALCIUM 600 + D ORAL) Take 600 mg by mouth once daily. 0 Active Comment on above: Take 600 mg by mouth once daily. ciprofloxacin 250 mg oral tablet (3 sources) Quinolone Antimicrobial Start: 024 End: 025 take 1 tablet by mouth every twelve hours Ciprofloxacin Hcl 250 mg tablet Discontinued 250 MG PO Every 12 hours 6 3 July 22, 2024 12:00am October 04, 2024 9:06am Start: 12-02-2023 take 1 tablet by ken once daily Cipro 500 mg Tab 500 mg = 1 tab(s), Oral, Daily, Take 1 tablet the day before the procedure and 1 tablet after the procedure, # 2 tab(s), Refills(s) 0, [id number], 170, cm, 11/24/23 9:34:00 EDT, Height/Length Dosing, 66, kg, 11/24/23 9:34:00 EDT, Weight Dosing Start Date: 12/02/23 Status: Ordered citalopram 20 mg oral tablet (1 source) Serotonin Reuptake Inhibitor take 1 tablet by mouth once daily citalopram (CELEXA) 20 mg tablet Take 20 mg by mouth once daily. 0 Active Comment on above: Take 20 mg by mouth once daily. doxycycline monohydrate 100 mg oral capsule (4 sources) Tetracycline-class Drug Start: 09-07-19 take 1 capsule by mouth every twelve hours Doxycycline Monohydrate 100 MG 1 capsule Orally every 12 hrs for 5 days Aug, Not-Taking empagliflozin 10 mg oral tablet (6 sources) Sodium-Glucose Cotransporter 2 Inhibitor take 1 tablet by mouth every twenty-four hours Jardiance 10 MG 1 tablet Orally Once a day Not-Taking estrogens, conjugated (fdc) 0.625 mg/ml vaginal cream (2 sources) Estrogen Start: 09-20-19 25 conjugated estrogens 0.625 mg/g vaginal cream with applicator See Instructions, 30 gm, Refill(s) 5, 1 gm vaginal nightly x 3 weeks, then 3x per week thereafter, [facility], 170, cm, 09/20/24 11:31:00 EST, Height/Length Dosing, 68.8, kg, 09/20/24 11:31:00 EST, Weight Dosing Start Date: 09/20/24 Status: Ordered FreeStyle Leo 14 Day Sensor - (3 sources) FreeStyle Leo 14 Day Sensor - as directed Not-Taking FreeStyle Leo 14 Day Sensor - as directed Active Ketorolac (6 sources) Nonsteroidal Anti-inflammatory Drug, Cyclooxygenase Inhibitor Start: 02-09-2020 Toradol per 15 mg 18 Jan, 2020 30 mg MULTIVIT &MINERALS/FERROUS FUM (MULTI VITAMIN ORAL) (1 source) MULTIVIT &MINERALS/FERR OUS FUM (MULTI VITAMIN ORAL) Take by mouth once daily. 0 Active Comment on above: Take by mouth once d aily. nitrofurantoin, macrocrystals 25 mg / nitrofurantoin, monohydrate 75 mg oral capsule (3 sources) Nitrofuran Antibacterial Start: 07-07-2024 End: 07-14-2024 take 1 capsule by mouth in the morning nitrofurantoin , macrocrystal-m onohydrate, (Macrobid) 100 MG capsule Indications: Dysuria , Acute cystitis without hematuria Take 1 capsule (100 mg) by mouth in the morning and 1 capsule (100 mg) before bedtime. Do all this for 7 days. 14 capsule 07/07/2024 07/14/2024 Start: 04-19-2022 take 1 capsule by mo uth every twelve hours Macrobid 100 MG 1 capsule with food Orally every 12 hrs for 7 day(s) Mar, Active OneTouch Verio (6 sources) OneTouch Verio N ot-Taking OneTouch Verio A ctive phenazopyridine hydrochloride 100 mg oral tablet (9 sources) Start: 07-07-2024 End: 07-09-2024 take 1 tablet by mouth three times daily as needed for muscle spasms phenazopyridine (Pyridium) 100 MG tablet Indications: Dysuria , Acute cystitis without hematuria Take 1 tablet (100 mg) by mouth 3 (three) times a day as needed for bladder spasms for up to 2 days 6 tablet 07/07/2024 07/09/2024 Start: 06-03-2024 End: 06-05-2024 take 1 tablet by mouth three times daily as needed for muscle spasms phenazopyridine (Pyridium) 200 MG tablet Indications: Acute cystitis without hematuria Take 1 tablet (200 mg) by mouth 3 (three) times a day as needed for bladder spasms for up to 2 days 6 tablet 06/03/2024 06/05/2024 Active Start: 09-07-2022 take 1 tablet by ken th every eight hours Pyridium 200 MG 1 tablet after meals Orally Three times a day for 2 day(s) Aug, Not-Taking Start: 04-19-2022 take 1 tablet by ken th every eight hours Pyridium 200 MG 1 tablet after meals Orally Three times a day for 2 day(s) Mar, Active pravastatin sodium 80 mg oral tablet (11 sources) HMG-CoA Reductase Inhibitor Start: 04-28-2023 End: 04-30-2023 take 1 tablet by mouth once daily Pravastatin 80 mg tablet Discontinued 80 MG PO Daily April 27, 2023 11:00pm April 30, 2023 2:30pm Start: 05-24-2009 PRAVASTATIN 40 MG TAB Take one(1) tablet daily. 0 05/24/2009 Active Comment on above: Take one(1) tablet d aily. semaglutide 7 mg oral tablet (5 sources) Start: 12-15-19 24 End: 12-15-19 25 take 1 tablet by mouth before mealtime semaglutide (Rybelsus) 7 MG tablet Indications: 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) Take 1 tablet (7 mg) by mouth in the morning. Take before meals. 90 tablet 3 12/15/2023 06/03/2024 Discontinued ticagrelor 90 mg oral tablet (9 sources) Start: 04-30-20 End: 10-04-19 25 take 1 tablet by mouth twice daily Ticagrelor (Brilinta) 90 mg Tablet Discontinued 90 MG PO Twice daily 180 90 April 29, 2023 11:00pm October 04, 2024 9:08am Triamcinolone (13 sources) Corticosteroid Start: 02-09-20 KENALOG - 10 mg Jan, 40 mg Start: 06-17-2019 KENALOG - 10 m g May, 60 mg Start: 10-27-2008 TRIAMCINOLONE ACETONIDE 0.1 % TOPICAL CREAM Apply to psoriasis twice daily. 1pound jar 3 10/27/2008 Active Comment on above: Apply to psoriasis t wice daily. VITAMIN E,DL-ALPHA TOCOPHEROL, (VITAMIN E, BULK, MISC) (1 source) take 400 [IU] by mouth twice daily VITAMIN E,DL-ALPHA TOCOPHEROL, (VITAMIN E, BULK, MISC) Take 400 Units by mouth twice daily. 0 Active Comment on above: Take 400 Units by mo uth twice daily. Problems Active Problems Problem Classification Problem Date Documented Date Episodic/Chronic Acute myocardial infarction (3 sources) Acute myocardial infarction of inferior wall; Translations: [Acute myocardial infarction of other inferior wall, episode of care unspecified] Chronic Adjustment disorders (17 sources) Adjustment disorder with depressed mood; Translations: [Adjustment disorder with depressed mood] Onset: 3 09-30-2023 Chronic Anxiety disorders (20 sources) Anxiety attack ; Translations: [Panic disorder [episodic paroxysmal anxiety]] Onset: 3 09-30-2023 Chronic Cardiac dysrhythmias (18 sources) Paroxysmal supraventricular tachycardia; Translations: [Supraventricular tachycardia] Onset: 5 10-19-2014 Chronic Cataract (17 sources) Bilateral cortical age-related cataract eyes; Translations: [Cortical age-related cataract, bilateral] Onset: 8 09-30-2023 Chronic Conditions associated with dizziness or vertigo (17 sources) Dizziness; Translations: [Dizziness and giddiness] Onset: 4 07-02-2023 Episodic Coronary atherosclerosis and other heart disease (20 sources) Preinfarction syndrome; Translations: [Unstable angina] Onset: 3 04-28-2023 Chronic Comment on above: Problem List clean-u p per request of Phys. EHR Cmte Deficiency and other anemia (4 sources) Iron deficiency anemia; Translations: [Iron deficiency anemia, unspecified] 06-17-2024 Episodic Diabetes mellitus with complications (20 sources) Type 2 diabetes mellitus with diabetic polyneuropathy; Translations: [Type 2 diabetes mellitus] Onset: 1 12-17-2023 Chronic Diabetes mellitus without complication (12 sources) Type 2 diabetes mellitus without complications; Translations: [Diabetes mellitus] Onset: 2 04-29-2023 Chronic Comment on above: Problem List clean-u p per request of Phys. EHR Cmte Disorders of lipid metabolism (20 sources) Pure hypercholesterolemia, unspecified; Translations: [Hyperlipidemia, unspecified] Onset: 6 04-29-2023 Chronic Comment on above: Problem List clean-u p per request of Phys. EHR Cmte Essential hypertension (20 sources) Essential (primary) hypertension; Translations: [Hypertensive disorder] Onset: 5 04-29-2023 Chronic Comment on above: Problem List clean-u p per request of Phys. EHR Cmte Genitourinary symptoms and ill-defined conditions (20 sources) Mixed incontinence; Translations: [Incontinence] Onset: 4 Chronic Genitourinary symptoms and ill-defined conditions (20 sources) Dysuria; Translations: [Microalbuminuria] Onset: 1 Resolved: 2 Episodic Influenza (6 sources) Influenza; Translations: [Influenza due to unidentified influenza virus with other respiratory manifestations] Episodic Menopausal disorders (16 sources) Atrophic vaginitis; Translations: [Postmenopausal atrophic vaginitis] Onset: 4 Chronic Mood disorders (20 sources) Major depressive disorder, single episode, unspecified; Translations: [Depressive disorder] Onset: 9 07-02-2023 Chronic Osteoarthritis (1 source) Primary osteoarthritis, left ankle and foot; Translations: [PRIMARY OSTEOARTHRITIS LT ANK FOOT] Onset: 3 Chronic Other connective tissue disease (1 source) Pain in upper limb; Translations: [Pain in right arm] 10-04-2024 Episodic Other connective tissue disease (1 source) Pain in right arm; Translations: [Pain in limb] 10-04-2024 Episodic Other diseases of bladder and urethra (3 sources) Male urethral stricture; Translations: [Unspecified urethral stricture, male, unspecified site] Onset: 4 Episodic Other diseases of bladder and urethra (14 sources) Urethral stricture; Translations: [Unspecified urethral stricture, male, unspecified site] Onset: 4 05-02-2024 Episodic Other ear and sense organ disorders (17 sources) Sensorineural hearing loss, bilateral; Translations: [Sensorineural hearing loss, bilateral] Onset: 3 09-30-2023 Chronic Other female genital disorders (1 source) Noninflammatory disorder of the vagina; Translations: [Other specified noninflammatory disorders of vagina] Onset: 4 Episodic Other inflammatory condition of skin (16 sources) Psoriasis; Translations: [Other psoriasis] Onset: 9 04-06-2009 Chronic Other inflammatory condition of skin (17 sources) Plaque psoriasis; Translations: [Psoriasis vulgaris] Onset: 9 09-30-2023 Chronic Other inflammatory condition of skin (15 sources) Generalized psoriasis; Translations: [Psoriasis, unspecified] Onset: 1 04-14-2023 Chronic Other nervous system disorders (5 sources) Other specified mononeuropathies of left lower limb; Translations: [OTH SPEC MONONEUROPATH LT LOW LIMB] Onset: 3 Chronic Other nervous system disorders (1 source) Other specified mononeuropathies; Translations: [OTHER SPECIFIED MONONEUROPATHIES] Onset: 3 Chronic Other nervous system disorders (4 sources) Other chronic pain; Translations: [OTHER CHRONIC PAIN] Onset: 3 Chronic Other nervous system disorders (4 sources) Lesion of lateral popliteal nerve, left lower limb; Translations: [LESION LAT POP NERVE LT LOWER LIMB] Onset: 3 Chronic Other nervous system disorders (1 source) Lesion of lateral popliteal nerve, unspecified lower limb; Translations: [LESION LAT POP NERVE UNS LOWER LIMB] Onset: 3 Chronic Other nervous system disorders (1 source) Unspecified mononeuropathy of left lower limb; Translations: [UNS MONONEUROPATHY LEFT LOWER LIMB] Onset: 3 Chronic Other nervous system disorders (17 sources) Difficulty walking; Translations: [Difficulty in walking, not elsewhere classified] Onset: 1 09-30-2023 Chronic Other non-traumatic joint disorders (5 sources) Pain in left ankle and joints of left foot; Translations: [PAIN IN LEFT ANKLE] Onset: 3 Episodic Other screening for suspected conditions (not mental disorders or infectious disease) (20 sources) EKG ST segment changes; Translations: [Abnormal electrocardiogram [ECG] [EKG]] Onset: 4 04-28-2023 Episodic Comment on above: Problem List clean-u p per request of Phys. EHR Cmte Otitis media and related conditions (1 source) Otitis media, unspecified, right ear Episodic Residual codes; unclassified (17 sources) Tobacco user; Translations: [Tobacco use] Onset: 1 04-14-2023 Episodic Screening and history of mental health and substance abuse codes (20 sources) Ex-tobacco user; Translations: [Personal history of nicotine dependence] Onset: 4 04-29-2023 Episodic Comment on above: February 28, 2023 - 1ppd; Problem List clean-u p per request of Phys. EHR Cmte Spondylosis; intervertebral disc disorders; other back problems (7 sources) Sciatica; Translations: [Sciatica, right side] Onset: 3 Episodic Sprains and strains (4 sources) Strain of muscle(s) and tendon(s) of peroneal muscle group at lower leg level, left leg, subsequent encounter; Translations: [STRAIN M AND T PERONEAL LOW LT LEG SUBS] Onset: 3 Episodic Substance-related disorders (20 sources) Tobacco dependence in remission; Translations: [Nicotine dependence, cigarettes, in remission] Onset: 3 09-30-2023 Chronic Unclassified (15 sources) Patient on antidepressant monitoring plan Onset: 3 04-24-2023 Unclassified (15 sources) Baseline PHQ-9 Onset: 3 04-24-2023 Urinary tract infections (20 sources) Acute cystitis with hematuria; Translations: [Acute cystitis without hematuria] Onset: 2 Resolved: 2 Episodic Past or Other Problems Problem Classification Problem Date Documented Da te Episodic/Chronic Acute and unspecified renal failure (1 source) Acute kidney failure, unspecified; Translations: [ACUTE KIDNEY FAILURE UNSPECIFIED] Onset: 02-10-2022 Episodic Coronary atherosclerosis and other heart disease (2 sources) Presence of coronary angioplasty implant and graft; Translations: [Presence of coronary angioplasty implant and graft] Onset: 09-30-2023 Episodic Gastrointestinal hemorrhage (1 source) Melena; Translations: [MELENA] Onset: 02-10-2022 Episodic Intestinal infection (1 source) Infectious gastroenteritis and colitis, unspecified; Translations: [INF GASTROENTERITIS AND COLITIS UNS] Onset: 02-10-2022 Episodic Mood disorders (15 sources) Mood disorders Onset: 12-15-2023 Resolved: 01-02-2025 04-23-2024 Nonspecific chest pain (17 sources) Chest pain; Translations: [Chest pain, unspecified] Onset: 04-21-2023 Resolved: 04-24-2023 09-30-2023 Episodic Other aftercare (1 source) long term (current) use of oral hypoglycemic drugs; Translations: [[facility] USE ORAL HYPOGLYCEMIC DX] Onset: 02-10-2022 Episodic Other aftercare (1 source) Other snf (current) drug therapy; Translations: [OTH [facility] CURRENT DRUG THERAPY] Onset: 02-10-2022 Episodic Other bone disease and musculoskeletal deformities (1 source) Other specified disorders of bone density and structure, left ankle and foot; Translations: [OTH D/O BONE DEN STRUCT LT ANK FOOT] Onset: 09-04-2022 Episodic Other circulatory disease (1 source) Other specified symptoms and signs involving the circulatory and respiratory systems; Translations: [OT SPEC SX SIGNS INVLV CIRC RS] Onset: 10-22-2022 Episodic Other connective tissue disease (4 sources) Pain in left foot; Translations: [PAIN IN LEFT FOOT] Onset: 09-23-2022 Episodic Other ear and sense organ disorders (17 sources) Bilateral tinnitus; Translations: [Tinnitus, bilateral] Onset: 04-14-2023 09-30-2023 Episodic Other non-traumatic joint disorders (1 source) Other specified joint disorders, left ankle and foot; Translations: [OTHER SPEC JOINT D/O LT ANKLE FOOT] Onset: 09-04-2022 Episodic Residual codes; unclassified (1 source) Other specified postprocedural states; Translations: [OT SPECIFIED POSTPROCEDURAL STATES] Onset: 10-22-2022 Episodic Residual codes; unclassified (19 sources) Body mass index 20-24 - normal; Translations: [Body mass index (BMI) 23.0-23.9, adult] Onset: 12-17-2023 12-17-2023 Episodic Residual codes; unclassified (2 sources) Body mass index (BMI) 23.0-23.9, adult; Translations: [Body mass index (BMI) 23.0-23.9, adult] Onset: 12-17-2023 Episodic Septicemia (except in labor) (4 sources) Sepsis, unspecified organism; Translations: [Severe sepsis without septic shock] Onset: 02-03-2022 Episodic Results Test Name Value Interpretation Reference Range [facility] Urineon 09-22-2024 Bacteria identified Cx Nom (U) Microbiology PROCEDURE: Urine Culture [R1] SOURCE: U Random BODY SITE: COLLECTED DATE/TIME: 09/20/2024 12:34 EST RECEIVED DATE/TIME: 09/20/2024 18:13 EST START DATE/TIME: 09/20/2024 18:13 EST FREE TEXT SOURCE: JERICA MOREIRA, CHLOÉ PIZANO PA-C, CHLOÉ Anne FINAL REPORTS Final Report [] Verified Date/Time: 09/22/2024 10:49 EST >100,000 cfu/ml Klebsiella pneumoniae SUSCEPTIBILITY RESULTS __ LEGEND: S=Susceptible, N/R=Not Reported, Blank=Data not available, or drug not advisable or tested, I=Intermediate, ESBL=Extended spectrum beta-lactamase, R=Resistant, TFG=Thymidine-dependent strain, RICHELLE=Beta-lactamase positive, SHIMA=mcg/m;(mg/L), S*=Predicted susceptible interp, R*=Predicted resistant interp Klepne Antibiotic SHIMA Dilutn SHIMA Interp Ampicillin >16 R Ampicillin/ <=8/4 S Sulbactam Aztreonam <=4 S Cefazolin <=2 S Cefepime <=2 S Ceftazidime <=1 S Ceftazidime/ <=8 S Avibactam Ceftriaxone <=1 S Cefuroxime <=4 S Ciprofloxacin <=0.25 S Ertapenem <=0.5 S Gentamicin <=2 S Levofloxacin <=0.5 S Meropenem <=1 S Nitrofurantoin >64 R Piperacillin/ <=8 S Tazobactam Tetracycline <=4 S Tobramycin <=2 S Trimethoprim/ <=2/38 S Sulfa Performing Locations R1: This test was performed at: [facility], [address] [place] [address], [id number] , [place], Normal [facility] Comment on above: Performed By: #### 2 [id number] #### [facility] [address] [place] [address] Urology Office/Clinic Noteon 09-20-2024 Urology Office/Clinic Note Urology Office/Clinic Note Chief Complaint urinary frequency, nocturia HPI Staff 63 year old female patient here for urinary frequency, nocturia. Has a history of frequent UTIs. S/P cysto 12/29/23 Previous dx: urethral stricture, vaginal dryness, mixed incontinence urge and stress. PVR today - 0mL Dysuria: burning with and after urination; says she has burning almost constantly Incomplete bladder emptying: yes, PVR 0mL Hematuria: denies Frequency: at least 1x per hour Urgency: yes Nocturia: 7x per night Stream: varies Leaking: denies Post void dripping: denies Wearing pads/ Depends: wears a pad Urge incontinence: denies Stress incontinence: yes - a little bit if coughs or sneezes Incontinence without Sensory Awareness: denies Abdominal pain: denies Flank pain: denies Sexual complaints: Review of Systems PHQ Score Initial Depression Screen Score: 2 SCORE No fever, chills, malaise, myalgia. No nausea, vomiting. Physical Exam Vitals & Measurements T: 37 ???C(Oral) HR: 86(Peripheral) RR: 18 BP: 135/73 HT: 67 in HT: 170 cm WT: 68.8 kg WT: 151.678 lb BMI: 23.81 Nontoxic. WDWN. Assessment/Plan 1. Urethral stricture (N35.919: Unspecified urethral stricture, male, unspecified site) 12/29/23 - tight urethra Dil to 30fr Pt noticed marked improvement in urgency/frequency and some of the UUI after dilation. Sx worsened after she was dx'd w UTI May 2024. Have not improved despite abx (Keflex x 5d then Macrobid x 7d then Cipro x 3d). However UA today still looks infected. Will treat w 10d abx and then repeat urine cx. If negative and sx persist, will discuss repeat UD. If sx improve, then won't need UD. 2. Atrophic vaginitis (N95.2: Postmenopausal atrophic vaginitis) Started on estrogen cream Nov 2023. Completed 2 tubes and then ran out and didn't call for refills. Reiterated how this helps w vaginal dryness as well as UTIs and stricture. Pt amenable to resume. Refills sent. 3. Mixed incontinence urge and stress (N39.46: Mixed incontinence) See #1. BBSQ 23 poor Orders: conjugated estrogens topical, See Instructions, 30 gm, Refill(s) 5, 1 gm vaginal nightly x 3 weeks, then 3x per week thereafter, [employer] Float #72, 170, cm, 09/20/24 11:31:00 EST, Height/Length Dosing, 68.8, kg, 09/20/24 11:31:00 EST, Weight Dosing sulfamethoxazole-trimetho prim, 1 tab(s), Oral, BID for 10 day(s), 20 tab(s), Refill(s) 0, Capital Float #72, 170, cm, 09/20/24 11:31:00 EST, Height/Length Dosing, 68.8, kg, 09/20/24 11:31:00 EST, Weight Dosing 01930 Measure Post Void residual urine and/or bladder capacity by US- non-imaging Body Mass Index (BMI) documented 3008F Current tobacco smoker 1034F Depression Screening Negative 3352F E&M of Est. Patient Moderate 30-39 Min 45375 Influenza immunization status assessed 1030F Medication list documented in medical record 1159F Most recent diastolic blood pressure <80 mm Hg 3078F Review of all meds by a prescribing practitioner or clinical pharmacist documented in EHR 1160F Systolic BP 130-139 mm Hg (Most Recent) 3075F Urine Culture Urnls Dip Stick Auto w/o Microscopy POC 07710 Follow-up With When Contact Information CHLOÉ PIZANO PA-C, URL In 1 month [address] [place] [address] Additional Instructions: Patient Education Overactive Bladder, Adult Problem List/Past Medical History Ongoing Atrophic vaginitis Cardiovascular disease Depressed Diabetes HTN (hypertension) Hyperlipidemia Mixed incontinence urge and stress Urethral stricture Historical No qualifying data Procedure/Surgical History Carotid artery stent (04/24/2023), Colonoscopy (01/22/2022), Breast lumpectomy (05/04/2017), Ankle, Cardiac ablation system. Medications aspirin 81 mg oral capsule, Oral, q24hr atorvastatin 80 mg Tab, 80 mg= 1 tab(s), Daily Bactrim 400 mg-80 mg Tab, 1 tab(s), Oral, BID conjugated estrogens 0.625 mg/g vaginal cream with applicator, See Instructions, 5 refills glimepiride 4 mg Tab, 4 mg= 1 tab(s), BID lisinopril 10 mg Tab, 10 mg= 1 tab(s), Daily metformin 850 mg Tab, 850 mg= 1 tab(s), BID Metoprolol tartrate 50 mg Tab, 50 mg= 1 tab(s), BID pioglitazone 30 mg Tab, 30 mg= 1 tab(s), Daily sertraline 25 mg Tab, 25 mg= 1 tab(s), Daily Taltz Autoinjector 80 mg/mL subcutaneous solution, 80 mg, SubCutaneous, q4wk Allergies Relpax (Disorientated) Social History Alcohol - Low Risk, 11/24/2023 Never., 09/20/2024 Substance Abuse Never., 09/20/2024 Tobacco 10 or more cigarettes (1/2 pack or more)/day in last 30 days Tobacco Use:. Never Smokeless Tobacco Use:. Cigarettes, 09/20/2024 Family History Congenital heart disease: Father. Diabetes mellitus: Father. Hyperlipidemia: Mother and Father. Hypertension: Mother and Father. Migraine: Mother. Immunizations Vaccine Date Status Comments influenza virus vaccine, inactivated - Not Given Patient Refuses SARSCoV2 mRNA(tozinamer-tr (more content not included)... Normal [facility] Comment on above: Result Comment: Elec tronically Signed By: CHLOÉ PIZANO PA-C\Date and Time Signed: 09/20/24 13:32 EST Occult blood x 1, stoolon Appearance (Stl) Adequate [facility] Internal identifier for Provider [id number] [facility] Lower GI hemoglobin IA Ql (Stl) SEE NOTE [facility] Comment on above: Not Detected Specimen source Nom (Unsp spec) STOOL [facility] STATUS FINAL [facility] FASTING: UNKNOWN [facility] Performing Organizat ion Information Site ID: QPT Name: [facility] Address: [address] [place] [address], [address] [place] [id number] Director: Behzad Marley MD [facility] - Chemistry and C hemistry - challengeon 07-22-2024 Bilirubin Ql (U) small [facility] Glucose (U) [Mass/Vol] 100 mg/dL Fi [facility] Ketones Ql (U) Negative [facility] pH (U) 5.5 [pH] [facility] Specific gravity (U) [Rel density] 1.030 [facility] Urobilinogen (U) [Mass/Vol] 0.2 mg/dL [facility] Laboratory - Specimen inform ationon 07-22-2024 Appearance (U) cloudy [facility] Color (U) yellow [facility] Laboratory - Urinalysison Leukocyte esterase Test strip Ql (U) Negative [facility] Nitrite Ql (U) Negative [facility] Protein Ql (U) 30 [facility] No Panel Informationon 07-22 Urine Occult Blood trace-intact [facility] Urine Cultureon 07-22-2024 Bacteria identified Cx Nom (U) 30,000 colonies/ml mixed bacterial skin contaminants 2 Days PERFORMED BY: [facility] [address] [place] [address] PATHOLOGIST ICT SECURITY SPECIALIST RICA HODGE M.D. Normal [facility] Comment on above: Performed By: #### C UU #### [address] Urine cultureOrdered By: Kaylee Saldana on 07-22-2024 Bacteria identified Cx Nom (U) Urine culture [facility] Laboratory - Chemistry and C hemistry - challengeon 07-07-2024 Bilirubin Ql (U) Negative Negative [facility] Glucose [Mass/Vol] Negative Negative [facility] Ketones Ql (U) Negative Negative [facility] pH (U) 6 [pH] 5.0 - 6.0 [facility] Specific gravity (U) [Rel density] 1.03 1.001 - 1.035 [facility] Laboratory - Hematology and Cell countson 07-07-2024 Hemoglobin Ql (U) Negative Negative [facility] - Urinalysison Nitrite Ql (U) Negative Negative [facility] Protein Ql (U) Trace Negative [facility] No Panel Informationon 07-07 Interpretation and review of laboratory results Abnormal [facility] LEUKOCYTES 3+ Negative [facility] UROBILINOGEN 1+ 0.2 - 1.0 [facility] No Panel Informationon 06-04 ACINETOBACTER BAUMANII 0 NO [facility] ACINETOBACTER BAUMANII Not detected [facility] SHAHID ALBICANS, PARAPSILOSIS, TROPICALIS 0 [facility] SHAHID ALBICANS, PARAPSILOSIS, TROPICALIS Not detected [facility] SHAHID GLABRATA 0 [facility] SHAHID GLABRATA Not detected [facility] SHAHID KRUSEI 0 [facility] SHAHID KRUSEI Not detected [facility] CITROBACTER FREUNDII 0 [facility] CITROBACTER FREUNDII Not detected NO [facility] ENTEROBACTER AEROGENES, CLOACAE 0 [facility] ENTEROBACTER AEROGENES, CLOACAE Not detected [facility] ENTEROCOCCUS FAECALIS, FAECIUM 0 [facility] ENTEROCOCCUS FAECALIS, FAECIUM Not detected [facility] ERMB, C; MEFA 25.531 Abnormal [facility] ERMB, C; MEFA Detected Abnormal [facility] ESCHERICHIA COLI 0 [facility] ESCHERICHIA COLI Not detected [facility] Interpretation and review of laboratory results Abnormal [facility] KLEBSIELLA PNEUMONIAE, OXYTOCA 0 [facility] KLEBSIELLA PNEUMONIAE, OXYTOCA Not detected [facility] MORGANELLA MORGANII 0 [facility] MORGANELLA MORGANII Not detected [facility] PROTEUS MIRABILIS, VULGARIS 0 [facility] PROTEUS MIRABILIS, VULGARIS Not detected [facility] PSEUDOMONAS AERUGINOSA 0 NO [facility] PSEUDOMONAS AERUGINOSA Not detected [facility] SERRATIA MARCESCENS 0 [facility] SERRATIA MARCESCENS Not detected [facility] STAPHYLOCOCCUS AUREUS 0 [facility] STAPHYLOCOCCUS AUREUS Not detected [facility] STAPHYLOCOCCUS EPIDERMIDIS, HAEMOLYTICUS, LUGDUNENSIS, SAPROPHYTICUS (URINA 0 [facility] STAPHYLOCOCCUS EPIDERMIDIS, HAEMOLYTICUS, LUGDUNENSIS, SAPROPHYTICUS (URINA Not detected [facility] STREPTOCOCCUS AGALACTIAE (GROUP B STREP) 25.738 Abnormal [facility] STREPTOCOCCUS AGALACTIAE (GROUP B STREP) Detected Abnormal [facility] STREPTOCOCCUS PYOGENES (GROUP A STREP) 0 [facility] STREPTOCOCCUS PYOGENES (GROUP A STREP) Not detected [facility] TET B, TET M 24.828 Abnormal [facility] TET B, TET M Detected Abnormal [facility] - Chemistry and C hemistry - challengeon 06-03-2024 Bilirubin Ql (U) Negative [facility] Glucose [Mass/Vol] Negative [facility] Ketones Ql (U) Negative [facility] pH (U) 6.5 [pH] [facility] Specific gravity (U) [Rel density] 1.02 [facility] Urobilinogen (U) [Mass/Vol] 0.2 mg/dL [facility] - Hematology and Cell countson 06-03-2024 Hemoglobin Ql (U) Negative [facility] - Urinalysison Nitrite Ql (U) Negative [facility] Protein Ql (U) 100mg [facility] No Panel Informationon 06-03 Interpretation and review of laboratory results Abnormal [facility] LEUKOCYTES Negative [facility] XR ABDOMEN 2 VIEWon 01-15-20 24 XR ABDOMEN 2 VIEW FINDINGS: Moderate to large volume of colon stool tapering through the descending colon. No mass effect or free air. No obstruction. No biliary or urinary tract stones. Blunted right cardiophrenic angle probable benign fatty etiology within the epicardial space. IMPRESSION: 1. Moderate to large volume of colon stool, no obstruction or mass effect. TRANSCRIBED BY: ELECTRONICALLY SIGNED BY: Luciano Brand MD Normal Not Available Consent for Procedure/Surger yon 2023 Consent for Procedure/Surgery [id number] Normal [facility] Consent for Treatmenton Consent for Treatment [id number] Normal [facility] IntraOperative Documentson 0 2023 IntraOperative Documents [id number] Normal [facility] Main OR Intraoperative Recor don 2023 Main OR Intraoperative Record IntraOp Document Type FTURO Summary Primary Physician: Joe CARTAGENA MD Finalized Date/Time: 12/29/23 11:22:14 Pt. Name: ANN MARIE SEGURA/Sex: 1960 Female Med Rec #: [id number] Physician: Joe CARTAGENA MD Financial #: [id number] Pt. Type: O Room/Bed: / Admit/Disch: 12/29/23 09:07:28 - Institution: Case Times FTURO Entry 1 Patient Times In Room 12/29/23 11:03:00 Out Room 12/29/23 11:21:00 Procedure Times Start 12/29/23 11:15:00 Stop 12/29/23 11:17:00 Anesthesia Times Last Modified By: Joleen Orellana 12/29/23 11:21:37 Case Attendance FTURO Entry 1 Entry 2 Entry 3 Case Attendee Joe CARTAGENA MD, Kelsie E Miller, Laura C Role Performed Surgeon - Primary Roll Edge Machine Operator - Primary Scrub - Primary Time In 12/29/23 11:03:00 12/29/23 11:03:00 12/29/23 11:03:00 Time Out 12/29/23 11:21:00 12/29/23 11:21:00 12/29/23 11:21:00 Procedure CYSTOSCOPY LOCAL WITH CYSTOSCOPY LOCAL WITH CYSTOSCOPY LOCAL WITH URETHRAL DILATION(.) URETHRAL DILATION(.) URETHRAL DILATION(.) Comments Last Modified By: Joleen Orellana Kelsie E Burgderfer, Kelsie E 12/29/23 11:21:38 12/29/23 11:21:38 12/29/23 11:21:38 Surgical Procedures FTURO Entry 1 Procedure Description Procedure CYSTOSCOPY LOCAL WITH Modifiers . URETHRAL DILATION Surgeon Description CYSTO WITH URETHRAL DILATION Primary Procedure Yes Primary Surgeon Joe CARTAEGNA MD Start 12/29/23 11:15:00 Stop 12/29/23 11:17:00 Anesthesia Type Local Surgical Service Urology Wound Class 2 - Clean-Contaminated Last Modified By: Joleen Orellana 12/29/23 11:17:28 General Case Data FTURO Pre-Care Text: Classifies surgical wound, implements aseptic technique, initiates traffic control Entry 1 Case Information OR URO 1 FT Case Level None Wound Class 2 - Clean-Contaminated Specialty Urology Preop Diagnosis URETERAL STRICTURE AND Postop Same As Preop Yes MIXED INCONTINENCE Postop Diagnosis URETERAL STRICTURE AND Outcomes Met? Yes MIXED INCONTINENCE Last Modified By: Joleen Orellana 12/29/23 11:05:15 Post-Care Text: The patient is free from signs and symptoms of infection EU IntraOp - FTURO Pre-Care Text: Implements protective measures prior to operative or invasive procedure, confirms identity before the operative or invasive procedure, verifies operative procedure, surgical site, and laterality Entry 1 EU Perioperative Protocols Procedure(s) CYSTOSCOPY LOCAL WITH Patient Identity Birthday, ID Band URETHRAL DILATION(.) Verified (select at Check, Patient least 2): Participation Consents / H and P HandP, Surgery/Procedure Operative Site N/A Verified Consent Marking Verified Surgical Site Yes Laterality Verified n/a Verified Procedure Verified Yes Correct Patient Yes Position Verified Availability Equipment, Medication Time Out MITZI UNGER, Joe Rosen, Verified (If Participants Joleen Orellana, Applicable) Paulette Geronimo Time Out Complete 12/29/23 11:12:00 Allergies Reviewed? Yes Allergies Reviewed Self/Patient With Body Position Frog Legged Prep Area VAGINA Prep Agents Betadine Scrub and Solution Skin. Condition Intact, [place], Warm, and Dry Additional None Specimens Collected Vitals - EU Blood Pressure 150/76 Pulse 71 bpm Respirations 16 br/min SPO2 99 % EBL 0 IandO - EU Total Intake 0 mL Total Output 0 mL Outcomes Met? Yes Last Modified By: Joleen Orellana 12/29/23 11:12:15 Post-Care Text: The patient is free from signs and symptoms of injury caused by extraneous objects Sign Out FTURO Entry 1 Before Patient Leaves OR Nurse verbally Yes Nurse verbally n/a confirms with the confirms with the team the name of team that the procedure(s) instrument, sponge, recorded and needle counts are correct (or N/A) Nurse verbally n/a Nurse verbally Yes confirms with the confirms with the team how the team whether there specimen is labeled are any equipment (including patient problems to be name), if applicable addressed Sign Out Complete 12/29/23 11:17:00 Last Modified By: Joleen Orellana 12/29/23 11:17:27 Case Comments Finalized By: Joleen Orellana Document Signatures Signed By: Joleen Orellana 12/29/23 11:22 Joleen Orellana 12/29/23 11:22 Joleen Orellana 12/29/23 11:22 [facility] Main OR Preoperative Recordo n 2023 Main OR Preoperative Record Holding Area Document Type FTURO Summary Primary Physician: Joe ACRTAGENA MD Finalized Date/Time: 12/29/23 10:40:32 Pt. Name: ANN MARIE SEGURA./Sex: 1960 Female Med Rec #: [id number] Physician: Joe CARTAGENA MD Financial #: [id number] Pt. Type: O Room/Bed: / Admit/Disch: 12/29/23 09:07:28 - Institution: Case Times Holding FTURO Pre-Care Text: Verifies consent for planned procedure, identifies individual values and wishes concerning care, includes family members in perioperative teaching Secures patient's records' belongings, and valuables, maintains patient's dignity and privacy, and maintains patient confidentiality Entry 1 In Holding 12/29/23 10:33:00 Outcomes Met? Yes Last Modified By: Rajni Pratt RN 12/29/23 10:33:56 Post-Care Text: The patient participates in decisions affecting his or her perioperative plan of care The patient's right to privacy is maintained Surgery Checklist FTURO Entry 1 Patient Birthday, ID Band Procedure History and Physical, Identification: Check, Patient Verification: Surgical Consent, With Participation Patient NPO after Midnight: n/a Personal Items: Glasses Personal Items GLASSES; CARDIAC STENT Limitations: UP AD FAHAD Comment: Complaints of Pain: No Pain Comment: 0/10 Skin Integrity Dry, Warm Vitals - EU Blood Pressure 150/76 Pulse 71 bpm Respirations 16 br/min SPO2 99 % Additional None RN Reviewed Yes Specimens Collected Last Modified By: Rajni Pratt RN 12/29/23 10:36:27 Finalized By: Rajni Pratt RN Document Signatures Signed By: Rajni Pratt RN 12/29/23 10:36 Rajni Pratt RN 12/29/23 10:40 [facility] Operative Reporton Operative Report Patient: BELEN SEGURA Age: 63 years Sex: Female : 1960 Associated Diagnoses: None Author: Joe CARTAGENA MD Procedure Operative Information Details: Date/ Time: 2023 11:24:00. Pre-Op Dx: Frequency - R35.0, Hx of UTI's - Z87.440, Urgency. Post-Op Dx: Same. Anesthesia Type: Local. Procedure: Local Cystoscopy with Urethral Dilation. Complications: None. Risks/Benefits/Informed Consent: Surgical risks, benefits, details of the procedure have been explained to the patient, Full informed consent has been obtained. Intraoperative Information Prepped: Patient is brought back to the endoscopy suite, Patient is placed in modified dorso/lithotomy position, Patient prepped in the usual fashion with Betadine solution, 2% Xylocaine Jelly is placed per Urethra, After waiting several minutes the Cystoscope is introduced. The Urethra is: Tight, Moderate atrophic vaginitis. The Bladder is: Normal, Trabeculated No bladder tumors. No JEAN PIERRE. Moderate atrophic vaginitis. No prolapse.. The ureteral orifices: Show efflux of clear urine. The Urethra was dilated to: 30 Malay w/ sounds. Devices Implanted: None. Removal: Cystoscope is removed, The patient tolerated it well. Postoperative Information Discharge: Patient is discharged home with antibiotic coverage, Follow up arranged. [facility] Comment on above: Result Comment: Elec tronically Signed By: Joe CARTAGENA MD\.br\Date and Time Signed: 12/29/23 11:25 EDT Outpatient Surgery Discharge Instructionon 2023 Outpatient Surgery Discharge Instruction [id number] [facility] Pre-Certification Formon Pre-Certification Form [id number] [facility] Physician Referralon 024 Physician Referral [id number] [facility] Screenson 11-26-2023 Screens [id number] [facility] Patient Educationon 11-24-19 24 Patient Education Obstetrics and Gynec ology Overactive Bladder, Adult Overactive bladder is a condition in which a person has a sudden and frequent need to urinate. A person might also leak urine if he or she cannot get to the bathroom fast enough (urinary incontinence). Sometimes, symptoms can interfere with work or social activities. What are the causes? Overactive bladder is associated with poor nerve signals between your bladder and your brain. Your bladder may get the signal to empty before it is full. You may also have very sensitive muscles that make your bladder squeeze too soon. This condition may also be caused by other factors, such as: ? Medical conditions: ? Urinary tract infection. ? Infection of nearby tissues. ? Prostate enlargement. ? Bladder stones, inflammation, or tumors. ? Diabetes. ? Muscle or nerve weakness, especially from these conditions: ? A spinal cord injury. ? Stroke. ? Multiple sclerosis. ? Parkinson's disease. ? Other causes: ? Surgery on the uterus or urethra. ? Drinking too much caffeine or alcohol. ? Certain medicines, especially those that eliminate extra fluid in the body (diuretics). ? Constipation. What increases the risk? You may be at greater risk for overactive bladder if you: ? Are an older adult. ? Smoke. ? Are going through menopause. ? Have prostate problems. ? Have a neurological disease, such as stroke, dementia, Parkinson's disease, or multiple sclerosis (MS). ? Eat or drink alcohol, spicy food, caffeine, and other things that irritate the bladder. ? Are overweight or obese. What are the signs or symptoms? Symptoms of this condition include a sudden, strong urge to urinate. Other symptoms include: ? Leaking urine. ? Urinating 8 or more times a day. ? Waking up to urinate 2 or more times overnight. How is this diagnosed? This condition may be diagnosed based on: ? Your symptoms and medical history. ? A physical exam. ? Blood or urine tests to check for possible causes, such as infection. You may also need to see a health care provider who specializes in urinary tract problems. This is called a urologist. How is this treated? Treatment for overactive bladder depends on the cause of your condition and whether it is mild or severe. Treatment may include: ? Bladder training, such as: ? Learning to control the urge to urinate by following a schedule to urinate at regular intervals. ? Doing Kegel exercises to strengthen the pelvic floor muscles that support your bladder. ? Special devices, such as: ? Biofeedback. This uses sensors to help you become aware of your body's signals. ? Electrical stimulation. This uses electrodes placed inside the body (implanted) or outside the body. These electrodes send gentle pulses of electricity to strengthen the nerves or muscles that control the bladder. ? Women may use a plastic device, called a pessary, that fits into the vagina and supports the bladder. ? Medicines, such as: ? Antibiotics to treat bladder infection. ? Antispasmodics to stop the bladder from releasing urine at the wrong time. ? Tricyclic antidepressants to relax bladder muscles. ? Injections of botulinum toxin type A directly into the bladder tissue to relax bladder muscles. ? Surgery, such as: ? A device may be implanted to help manage the nerve signals that control urination. ? An electrode may be implanted to stimulate electrical signals in the bladder. ? A procedure may be done to change the shape of the bladder. This is done only in very severe cases. Follow these instructions at home: Eating and drinking ? Make diet or lifestyle changes recommended by your health care provider. These may include: ? Drinking fluids throughout the day and not only with meals. ? Cutting down on caffeine or alcohol. ? Eating a healthy and balanced diet to prevent constipation. This may include: ? Choosing foods that are high in fiber, such as beans, whole grains, and fresh fruits and vegetables. ? Limiting foods that are high in fat and processed sugars, such as fried and sweet foods. Lifestyle ? Lose weight if needed. ? Do not use any products that contain nicotine or tobacco. These include cigarettes, chewing tobacco, and vaping devices, such as e-cigarettes. If you need help quitting, ask your health care provider. General instructions ? Take [id number] and prescription medicines only as told by your health care provider. ? If you were prescribed an antibiotic medicine, take it as told by your health care provider. Do not stop taking the antibiotic even if you start to feel better. ? Use any implants or pessary as told by your health care provider. ? If needed, wear pads to absorb urine leakage. ? Keep a log to track how much and when you drink, and when you need to urinate. This will help your health care provider monitor yo (more content not included)... [facility] Activated partial thrombopla stin time (aPTT) in platelet poor plasma by coagulation aOrdered By: Emily Grimes on 07-02-2023 aPTT Coag (PPP) [Time] 29.6 s 25.1-36.5 [facility] Comment on above: A hematocrit value g reater than 55% may lead to inaccurate results in coagulation testing. Patients having hematocrit values >55% require a special collection tube for coagulation studies. Please contact the laboratory at [phone] for redraw instructions. Automated erythrocytes count in urine sediment (number/area)Ordered By: Emily Grimes on 07-02-2023 RBC Auto (Urine sed) [#/Area] None seen [HPF] 0-4 [facility] Automated leukocytes count i n urine sediment (number/area)Ordered By: Emily Grimes on 07-02-2023 WBC Auto (Urine sed) [#/Area] 5-9 [HPF] 0-4 [facility] Automated urine hyaline cast s count (number/volume)Ordered By: Emily Grimes on 07-02-2023 Hyaline casts Auto (U) [#/Vol] 50-100 [LPF] 0-1 [facility] Automated urine sediment santhosh cium oxalate crystal count by microscopy (number/high powOrdered By: Emily rGimes on 07-02-2023 Calcium oxalate crystals LM.HPF (Urine sed) [#/Area] 2+ [HPF] [facility] Basophils Auto (Bld) [#/Vol] Ordered By: Emily Grimes on 07-02-2023 Basophils (Bld) [#/Vol] 0.1 10*3/uL 0.0-0.2 [facility] Basophils/100 WBC Auto (Bld) Ordered By: Emily Perdomoimore on 07-02-2023 Basophils/100 WBC (Bld) 1.1 % . [facility] Bilirubin Test strip Ql (U)O rdered By: Emily Perdomoimore on 07-02-2023 Bilirubin Ql (U) Negative Negative [facility] COVID CepheidOrdered By: Christine Perdomoimadan on 07-02-2023 SARS-CoV-2 (COVID-19) Ab IA Ql Negative Negative [facility] Comment on above: This is a duplicate [employer] Xpert Xpress CoV-2/Flu/RSV Plus RNA by RT-PCR result to be used for statistical tracking purpose only. SARS-CoV-2 (COVID-19) RNA MARY+probe Ql (Unsp spec) [facility] Calcium [Mass/volume] in Ser um or PlasmaOrdered By: Emily Bullimore on 07-02-2023 Calcium [Mass/Vol] 10.2 mg/dL 8.6-10.3 [facility] Carbon dioxide, total [Moles /volume] in Serum or PlasmaOrdered By: Emily Bullimore on 07-02-2023 CO2 [Moles/Vol] 20.1 mmol/L 21.0-31.0 [facility] Chloride [Moles/volume] in S marianela or PlasmaOrdered By: Emily Bullimore on 07-02-2023 Chloride [Moles/Vol] 104 mmol/L 98-[address] [facility] Color Auto (U)Ordered By: Aubrie christian Bullimore on 07-02-2023 Color (U) Yellow Yellow [facility] Creatine kinase [Enzymatic a ctivity/volume] in Serum or PlasmaOrdered By: Emily Bullimore on 07-02-2023 CK [Catalytic activity/Vol] 62 U/L 30-223 [facility] Creatinine [Mass/volume] in Serum or PlasmaOrdered By: Emily Bullimore on 07-02-2023 Creatinine [Mass/Vol] 1.09 mg/dL 0.60-1.20 [facility] Eosinophils Auto (Bld) [#/Vo l]Ordered By: Emiyl Grimes on 07-02-2023 Eosinophils (Bld) [#/Vol] 0.0 10*3/uL 0.0-0.45 [facility] Eosinophils/100 WBC Auto (Bl d)Ordered By: Emily Grimes on 07-02-2023 Eosinophils/100 WBC (Bld) 0.4 % . [facility] Erythrocyte distribution wid th Auto (RBC) [Ratio]Ordered By: Emily Grimes on 07-02-2023 Erythrocyte distribution width (RBC) [Ratio] 14.4 % 11.9-15.3 [facility] Fine granular cast count in urine sediment by microscopy (number/low power field )Ordered By: Emily Grimes on 07-02-2023 Fine Granular Casts LM.LPF (Urine sed) [#/Area] 3-4 [LPF] 0-1 [facility] Glucose Glucometer (BldC) [M ass/Vol]Ordered By: Emily Grimes on 07-02-2023 Glucose [Mass/Vol] 91 mg/dL [facility] Comment on above: Random Glucose Refer ence Range is dependent on time and content of last meal. Glucose of more than 200 mg/dL in a nonstressed, ambulatory subject supports the diagnosis of Diabetes Mellitus. Glucose [Mass/volume] in Ser um or PlasmaOrdered By: [facility] on 07-02-2023 Glucose [Mass/Vol] 109 mg/dL 70-100 [facility] Comment on above: ADA recommended refe rence rangeRandom Glucose Reference Range is dependent on time and content of last meal. Glucose of more than 200 mg/dL in a nonstressed, ambulatory subject supports the diagnosis of Diabetes Mellitus. Hematocrit Auto (Bld) [Volum e fraction]Ordered By: Emily Grimes on 07-02-2023 Hematocrit (Bld) [Volume fraction] 40.3 % 34.0-46.4 [facility] Hemoglobin [Mass/volume] in BloodOrdered By: [facility]kelsi [facility] on 07-02-2023 Hemoglobin (Bld) [Mass/Vol] 13.1 g/dL 11.8-15.4 [facility] INR in Platelet poor plasma by Coagulation assayOrdered By: Emily Grimes on 07-02-2023 INR Coag (PPP) [Relative time] 1.0 {INR} [facility] Comment on above: INR Therapeutic Rang e A) Pre- and Peroperative OAT started two weeks before surgery. NOT HIP SURGERY: 1.5 - 2.5 HIP SURGERY: 2 - 3B) Primary and secondary prevention of venous THROMBOSIS: 2 - 3C) Active venous thrombosis, pulmonary embolismand prevention of recurrent venous thrombosis: 2 - 3D) Prevention of arterial thromboembolismincluding patients with mechanical heart valves: 3 - 4.5 Ketones Auto test strip (U) [Mass/Vol]Ordered By: Emily Grimes on 07-02-2023 Ketones (U) [Mass/Vol] Trace Negative Fi [facility] Leukocytes [#/volume] correc andrae for nucleated erythrocytes in Blood by Automated counOrdered By: Emily Grimes on 07-02-2023 WBC corrected for nucl RBC Auto (Bld) [#/Vol] 12.9 10*3/uL 3.8-11.6 [facility] Lymphocytes Auto (Bld) [#/Vo l]Ordered By: Emily Grimes on 07-02-2023 Lymphocytes (Bld) [#/Vol] 1.8 10*3/uL 1.00-4.8 [facility] Lymphocytes/100 WBC Auto (Bl d)Ordered By: Emily Grimes on 07-02-2023 Lymphocytes/100 WBC (Bld) 13.7 % . [facility] MCH Auto (RBC) [Entitic mass ]Ordered By: Emily Grimes on 07-02-2023 MCH (RBC) [Entitic mass] 30.1 pg 24.7-34.3 [facility] MCHC Auto (RBC) [Mass/Vol]Or dered By: Emily Grimes on 07-02-2023 MCHC (RBC) [Mass/Vol] 32.6 g/dL 32.0-35.0 [facility] MCV Auto (RBC) [Entitic vol] Ordered By: Emily Grimes on 07-02-2023 MCV (RBC) [Entitic vol] 92.4 fL 80-100 [facility] Monocyte distribution width [Entitic volume] in Blood by AutomatedOrdered By: Emily Grimes on 07-02-2023 Monocyte distribution width Auto (Bld) [Entitic vol] 15.19 % 0.00-20.00 [facility] Monocytes Auto (Bld) [#/Vol] Ordered By: Emily Perdomoimore on 07-02-2023 Monocytes (Bld) [#/Vol] 0.8 10*3/uL 0.0-0.8 [facility] Monocytes/100 WBC Auto (Bld) Ordered By: Emily Perdomoimore on 07-02-2023 Monocytes/100 WBC (Bld) 6.4 % . [facility] Neutrophils Auto (Bld) [#/Vo l]Ordered By: Emilykelsi Perdomoimore on 07-02-2023 Neutrophils (Bld) [#/Vol] 10.1 10*3/uL 1.8-7.7 [facility] Neutrophils/100 WBC Auto (Bl d)Ordered By: Emily Grimes on 07-02-2023 Neutrophils/100 WBC (Bld) 78.4 % . [facility] Nitrite Test strip Ql (U)Ord ered By: Emilykelsi Grimes on 07-02-2023 Nitrite Ql (U) Negative Negative [facility] No Panel InformationOrdered By: Emily Grimes on 07-02-2023 Estimated GFR (CKD-EPI) 57.084 mL/Min [facility] Creatinine Clearance (Chem 51.37 [facility] Nucleated erythrocytes [Pres ence] in Blood by Automated countOrdered By: Emily Grimes on 07-02-2023 Nucleated RBC Auto Ql (Bld) 0.1 /100{WBC} 0-0.5 [facility] Platelet mean volume Auto (B ld) [Entitic vol]Ordered By: Emily Perdomoimore on 07-02-2023 Platelet mean volume (Bld) [Entitic vol] 7.8 fL 6.3-10.7 [facility] Platelets Auto (Bld) [#/Vol] Ordered By: Emily Perdomoimore on 07-02-2023 Platelets (Bld) [#/Vol] 370 10*3/uL 150-450 [facility] Potassium [Moles/volume] in Serum or PlasmaOrdered By: Emily Grimes on 07-02-2023 Potassium [Moles/Vol] 3.9 mmol/L 3.5-5.1 [facility] Protein Auto test strip (U) [Mass/Vol]Ordered By: Emily Grimes on 07-02-2023 Protein (U) [Mass/Vol] 30 mg/dL Negative [facility] Prothrombin time (PT)Ordered By: Emily Grimes on 07-02-2023 PT Coag (PPP) [Time] 11.7 s 9.0-12.[address] [facility] Comment on above: A hematocrit value g reater than 55% may lead to inaccurate results in coagulation testing. Patients having hematocrit values >55% require a special collection tube for coagulation studies. Please contact the laboratory at [phone] for redraw instructions. RBC Auto (Bld) [#/Vol]Ordere d By: Emily Grimes on 07-02-2023 RBC (Bld) [#/Vol] 4.36 10*6/uL 3.60-5.00 [facility] Serum or plasma anion gap de terminationOrdered By: Emily Grimes on 07-02-2023 Anion gap [Moles/Vol] 19.8 mmol/L 6.0-15.0 [facility] Sodium [Moles/volume] in Ser um or PlasmaOrdered By: Emily Grimes on 07-02-2023 Sodium [Moles/Vol] 140 mmol/L 136-145 [facility] Specific gravity Auto test s trip (U) [Rel density]Ordered By: Emily Grimes on 07-02-2023 Specific gravity (U) [Rel density] 1.025 1.001-1.03 0 [facility] Squamous epithelial cells de tection in urine sediment by light microscopyOrdered By: Emily Grimes on 07-02-2023 Epithelial cells.squamous LM Ql (Urine sed) 3-4 [HPF] 0-2 [facility] Thyrotropin [Units/volume] i n Serum or PlasmaOrdered By: Emily Grimes on 07-02-2023 TSH Qn 0.59 m[IU]/L 0.45-5.33 [facility] Thyroxine (T4) free [Mass/vo lume] in Serum or PlasmaOrdered By: Emily Grimes on 07-02-2023 Free T4 [Mass/Vol] 1.04 ng/dL 0.61-1.12 [facility] Troponin I.cardiac [Mass/vol ume] in Serum or Plasma by Detection limit <= 0.01 ng/Ordered By: Emily Grimes on 07-02-2023 Troponin I.cardiac DL <= 0.01 ng/mL [Mass/Vol] < 2.3 pg/mL 0.0-15.0 [facility] Urea nitrogen [Mass/volume] in Serum or PlasmaOrdered By: Emily Grimes on 07-02-2023 Urea nitrogen [Mass/Vol] 21 mg/dL 7-25 [facility] Urine bacteria detection by automated methodOrdered By: Emily Grimes on 07-02-2023 Bacteria Auto Ql (U) None seen None Seen [facility] Urine clarity by refractomet ry automatedOrdered By: Emily Grimes on 07-02-2023 Clarity Refractometry automated (U) Cloudy Clear [facility] Urine glucose measurement by automated test strip (mass/volume)Ordered By: Emily Grimes on 07-02-2023 Glucose Auto test strip (U) [Mass/Vol] 100 mg/dL Normal [facility] Urine hemoglobin detection b y automated test stripOrdered By: Emily Grimes on 07-02-2023 Hemoglobin Auto test strip Ql (U) Negative Negative [facility] Urine leukocyte esterase det ection by automated test stripOrdered By: Emily Grimes on 07-02-2023 Leukocyte esterase Auto test strip Ql (U) 2+ Negative [facility] Urine sediment crystal ident ification by light microscopyOrdered By: Emily Grimes on 07-02-2023 Crystals LM Nom (Urine sed) None seen [HPF] [facility] Urobilinogen Auto test strip (U) [Mass/Vol]Ordered By: Emily Grimes on 07-02-2023 Urobilinogen (U) [Mass/Vol] Normal mg/dL Normal [facility] WBC Auto (Bld) [#/Vol]Ordere d By: Emily Holdenore on 07-02-2023 WBC (Bld) [#/Vol] 12.9 10*3/uL 3.8-11.6 [facility] pH Auto test strip (U)Ordere d By: Emily Holdenore on 07-02-2023 pH (U) 5.5 [pH] 5.0-9.0 [facility] Urinalysis - AUTOMATEDon Appearance (U) cloudy [employer] Other Bilirubin Ql (U) Negative [employer] Other Color (U) yellow [employer] Other Glucose Ql (U) Negative [employer] Other Hemoglobin Ql (U) Negative [employer] Other Ketones Ql (U) Negative [employer] Other Leukocyte esterase Test strip Ql (U) trace [employer] Other Nitrite Ql (U) Negative [employer] Other pH (U) 5.5 [pH] [employer] Other Protein Ql (U) trace [employer] Other Specific gravity (U) [Rel density] >1.030 [employer] Other Urobilinogen (U) [Mass/Vol] 0.2 mg/dL [employer] Other Urinalysis - AUTOMATED No [employer] Other Urine culture routineOrdered By: Chloé Shea on 06-18-2023 Bacteria identified Cx Nom (U) 2 Days [facility] Tobacco Screening.on 023 Fall risk assessment c) Not medically indicated -[facility] [address] DO Work Phone: Tobacco use status CP b) No [facility] [address] DO Work Phone: Tobacco Screening. Yes [facility] [facility] 89 DO Work Phone: Basophils Auto (Bld) [#/Vol] Ordered By: Olu Trenton on 04-30-2023 Basophils (Bld) [#/Vol] 0.1 10*3/uL 0.0-0.2 [facility] Basophils/100 WBC Auto (Bld) Ordered By: [facility] on 04-30-2023 Basophils/100 WBC (Bld) 1.0 % . [facility] Calcium [Mass/volume] in Ser um or PlasmaOrdered By: [facility] on 04-30-2023 Calcium [Mass/Vol] 9.0 mg/dL 8.6-10.3 [facility] Carbon dioxide, total [Moles /volume] in Serum or PlasmaOrdered By: [facility] on 04-30-2023 CO2 [Moles/Vol] 24.8 mmol/L 21.0-31.0 [facility] Chloride [Moles/volume] in S marianela or PlasmaOrdered By: [facility] on 04-30-2023 Chloride [Moles/Vol] 108 mmol/L 98-[address] [facility] Creatinine [Mass/volume] in Serum or PlasmaOrdered By: Olu Trenton on 04-30-2023 Creatinine [Mass/Vol] 0.77 mg/dL 0.60-1.20 [facility] Eosinophils Auto (Bld) [#/Vo l]Ordered By: [facility] on 04-30-2023 Eosinophils (Bld) [#/Vol] 0.1 10*3/uL 0.0-0.45 [facility] Eosinophils/100 WBC Auto (Bl d)Ordered By: [facility] on 04-30-2023 Eosinophils/100 WBC (Bld) 1.3 % . [facility] Erythrocyte distribution wid th Auto (RBC) [Ratio]Ordered By: Olu Kurtis on 04-30-2023 Erythrocyte distribution width (RBC) [Ratio] 13.6 % 11.9-15.3 [facility] Glucose Glucometer (BldC) [M ass/Vol]Ordered By: Simone Martinez on 04-30-2023 Glucose [Mass/Vol] 124 mg/dL [facility] Comment on above: Random Glucose Refer ence Range is dependent on time and content of last meal. Glucose of more than 200 mg/dL in a nonstressed, ambulatory subject supports the diagnosis of Diabetes Mellitus. Glucose [Mass/volume] in Ser um or PlasmaOrdered By: Olu Hull on 04-30-2023 Glucose [Mass/Vol] 142 mg/dL 70-100 [facility] Comment on above: ADA recommended refe rence rangeRandom Glucose Reference Range is dependent on time and content of last meal. Glucose of more than 200 mg/dL in a nonstressed, ambulatory subject supports the diagnosis of Diabetes Mellitus. Hematocrit Auto (Bld) [Volum e fraction]Ordered By: Olu Hull on 04-30-2023 Hematocrit (Bld) [Volume fraction] 37.0 % 34.0-46.4 [facility] Hemoglobin [Mass/volume] in BloodOrdered By: Olu Hull on 04-30-2023 Hemoglobin (Bld) [Mass/Vol] 12.2 g/dL 11.8-15.4 [facility] Leukocytes [#/volume] correc andrae for nucleated erythrocytes in Blood by Automated counOrdered By: Olu Hull on 04-30-2023 WBC corrected for nucl RBC Auto (Bld) [#/Vol] 8.8 10*3/uL 3.8-11.6 [facility] Lymphocytes Auto (Bld) [#/Vo l]Ordered By: Olu Hull on 04-30-2023 Lymphocytes (Bld) [#/Vol] 1.5 10*3/uL 1.00-4.8 [facility] Lymphocytes/100 WBC Auto (Bl d)Ordered By: Olu Hull on 04-30-2023 Lymphocytes/100 WBC (Bld) 17.6 % . [facility] MCH Auto (RBC) [Entitic mass ]Ordered By: Olu Hull on 04-30-2023 MCH (RBC) [Entitic mass] 30.2 pg 24.7-34.3 [facility] MCHC Auto (RBC) [Mass/Vol]Or dered By: Olu Hull on 04-30-2023 MCHC (RBC) [Mass/Vol] 33.1 g/dL 32.0-35.0 [facility] MCV Auto (RBC) [Entitic vol] Ordered By: Olu Hull on 04-30-2023 MCV (RBC) [Entitic vol] 91.4 fL 80-100 [facility] Monocytes Auto (Bld) [#/Vol] Ordered By: Olu DíazHull on 04-30-2023 Monocytes (Bld) [#/Vol] 0.8 10*3/uL 0.0-0.8 [facility] Monocytes/100 WBC Auto (Bld) Ordered By: Olu DíazHull on 04-30-2023 Monocytes/100 WBC (Bld) 9.4 % . [facility] Neutrophils Auto (Bld) [#/Vo l]Ordered By: Olu Hull on 04-30-2023 Neutrophils (Bld) [#/Vol] 6.2 10*3/uL 1.8-7.7 [facility] Neutrophils/100 WBC Auto (Bl d)Ordered By: Olu Hull on 04-30-2023 Neutrophils/100 WBC (Bld) 70.7 % . [facility] No Panel InformationOrdered By: Simone Martinez on 04-30-2023 Bedside Glucose Comment Glu2: cleaned meter [facility] No Panel InformationOrdered By: Olu Hull on 04-30-2023 Estimated GFR (CKD-EPI) > 60.0 mL/Min [facility] Creatinine Clearance (Chem 72.72 [facility] Nucleated erythrocytes [Pres ence] in Blood by Automated countOrdered By: Olu Hull on 04-30-2023 Nucleated RBC Auto Ql (Bld) 0.1 /100{WBC} 0-0.5 [facility] Platelet mean volume Auto (B ld) [Entitic vol]Ordered By: Olu Hull on 04-30-2023 Platelet mean volume (Bld) [Entitic vol] 8.5 fL 6.3-10.7 [facility] Platelets Auto (Bld) [#/Vol] Ordered By: Olu Hull on 04-30-2023 Platelets (Bld) [#/Vol] 230 10*3/uL 150-450 [facility] Potassium [Moles/volume] in Serum or PlasmaOrdered By: Olu Hull on 04-30-2023 Potassium [Moles/Vol] 4.2 mmol/L 3.5-5.1 [facility] RBC Auto (Bld) [#/Vol]Ordere d By: Olu Hull on 04-30-2023 RBC (Bld) [#/Vol] 4.04 10*6/uL 3.60-5.00 [facility] Serum or plasma anion gap de terminationOrdered By: Olu Hull on 04-30-2023 Anion gap [Moles/Vol] 11.4 mmol/L 6.0-15.0 [facility] Sodium [Moles/volume] in Ser um or PlasmaOrdered By: Olu Hull on 04-30-2023 Sodium [Moles/Vol] 140 mmol/L 136-145 [facility] Troponin I.cardiac [Mass/vol ume] in Serum or Plasma by Detection limit <= 0.01 ng/Ordered By: Annabel Acharya on 04-30-2023 Troponin I.cardiac DL <= 0.01 ng/mL [Mass/Vol] 42.2 pg/mL 0.0-15.0 [facility] Urea nitrogen [Mass/volume] in Serum or PlasmaOrdered By: Olu Hull on 04-30-2023 Urea nitrogen [Mass/Vol] 14 mg/dL 7-25 [facility] WBC Auto (Bld) [#/Vol]Ordere d By: Olu Hull on 04-30-2023 WBC (Bld) [#/Vol] 8.8 10*3/uL 3.8-11.6 [facility] Activated partial thrombopla stin time (aPTT) in platelet poor plasma by coagulation aOrdered By: Olu Hull on 04-29-2023 aPTT Coag (PPP) [Time] 44.2 s 25.1-36.5 [facility] Comment on above: A hematocrit value g reater than 55% may lead to inaccurate results in coagulation testing. Patients having hematocrit values >55% require a special collection tube for coagulation studies. Please contact the laboratory at [phone] for redraw instructions. Cholesterol [Mass/volume] in Serum or PlasmaOrdered By: Olu Hull on 04-29-2023 Cholesterol [Mass/Vol] 138 mg/dL 140-200 [facility] Comment on above: Chol less than 200 m g/dl low riskChol 201-239 mg/dl borderline riskChol 240 mg/dl and greater high risk Cholesterol in LDL Calc [Mas s/Vol]Ordered By: Olu Hull on 04-29-2023 Cholesterol in LDL [Mass/Vol] 71 mg/dL 0-100 [facility] Comment on above: LDL ATP III CLASSIFI CATIONLDL less than 100 mg/dL OptimalLDL 100-129 mg/dL Near or above optimalLDL 130-159 mg/dL Borderline highLDL 160-189 mg/dL HighLDL greater than 189 mg/dL Very high Cholesterol in VLDL Calc [Ma ss/Vol]Ordered By: Olu Hull on 04-29-2023 Cholesterol in VLDL [Mass/Vol] 14 mg/dL [facility] Glucose mean value [Mass/vol ume] in Blood Estimated from glycated hemoglobinOrdered By: Olu Hull on 04-29-2023 Average glucose Estimated from glycated hemoglobin (Bld) [Mass/Vol] 209 mg/dL [facility] Hemoglobin A1c percentageOrd ered By: Olu Hull on 04-29-2023 HbA1c (Bld) [Mass fraction] 8.9 % 4.3-5.6 [facility] Comment on above: Increased risk for d iabetes: 5.7 - 6.4diabetes: >6.4glycemic control for adults with diabetes: <7.0 INR in Platelet poor plasma by Coagulation assayOrdered By: Olu Hull on 04-29-2023 INR Coag (PPP) [Relative time] 1.0 {INR} [facility] Comment on above: INR Therapeutic Rang e A) Pre- and Peroperative OAT started two weeks before surgery. NOT HIP SURGERY: 1.5 - 2.5 HIP SURGERY: 2 - 3B) Primary and secondary prevention of venous THROMBOSIS: 2 - 3C) Active venous thrombosis, pulmonary embolismand prevention of recurrent venous thrombosis: 2 - 3D) Prevention of arterial thromboembolismincluding patients with mechanical heart valves: 3 - 4.5 Laboratory - CoagulationOrde red By: Olu Hull on 04-29-2023 PT Coag (PPP) [Time] 12.0 s 9.0-12.[address] [facility] Serum or plasma high density lipoprotein (HDL) cholesterol measurementOrdered By: Olu Hull on 04-29-2023 Cholesterol in HDL [Mass/Vol] 53 mg/dL 23-92 [facility] Comment on above: HDL CHOL ATP-III CLA SSIFICATION Cardiovascular RiskHDL > or equal to 60 mg/dL LOWHDL < 40 mg/dL HIGH Serum or plasma total choles terol/high density lipoprotein (HDL) cholesterol mass ratOrdered By: Olu Hull on 04-29-2023 Cholesterol.total/Chol esterol in HDL [Mass ratio] 2.6 {ratio} <5.0 [facility] Triglyceride [Mass/volume] i n Serum or PlasmaOrdered By: Olu Hull on 04-29-2023 Triglyceride [Mass/Vol] 71 mg/dL 0-149 [facility] Comment on above: TRIG ATP III CLASSIF ICATIONTRIG less than 150 mg/dL NormalTRIG 150-199 mg/dL Borderline highTRIG 200-500 mg/dL High TRIG greater than 500 mg/dL Very highStandard traceable to the Center for Disease Conrtrol and Prevention (CDC) test method. Activated partial thrombopla stin time (aPTT) in platelet poor plasma by coagulation aOrdered By: Joe Meneses on 04-28-2023 aPTT Coag (PPP) [Time] 20.8 s 25.1-36.5 [facility] Automated erythrocytes count in urine sediment (number/area)Ordered By: Joe Meneses on 04-28-2023 RBC Auto (Urine sed) [#/Area] 5-9 [HPF] 0-4 [facility] Automated leukocytes count i n urine sediment (number/area)Ordered By: Joe Meneses on 04-28-2023 WBC Auto (Urine sed) [#/Area] 20-49 [HPF] 0-4 [facility] Automated urine hyaline cast s count (number/volume)Ordered By: Joe Meneses on 04-28-2023 Hyaline casts Auto (U) [#/Vol] 20-49 [LPF] 0-1 [facility] Basophils Auto (Bld) [#/Vol] Ordered By: Joe Meneses on 04-28-2023 Basophils (Bld) [#/Vol] 0.2 10*3/uL 0.0-0.2 [facility] Basophils/100 WBC Auto (Bld) Ordered By: Joe Meneses on 04-28-2023 Basophils/100 WBC (Bld) 1.5 % . [facility] Bilirubin Test strip Ql (U)O rdered By: Joe Meneses on 04-28-2023 Bilirubin Ql (U) Negative Negative [facility] Calcium [Mass/volume] in Ser um or PlasmaOrdered By: Joe Meneses on 04-28-2023 Calcium [Mass/Vol] 8.7 mg/dL 8.6-10.3 [facility] Carbon dioxide, total [Moles /volume] in Serum or PlasmaOrdered By: Joe Meneses on 04-28-2023 CO2 [Moles/Vol] 20.8 mmol/L 21.0-31.0 [facility] Chloride [Moles/volume] in S marianela or PlasmaOrdered By: Joe Meneses on 04-28-2023 Chloride [Moles/Vol] 113 mmol/L 98-[address] [facility] Color Auto (U)Ordered By: Misbah Meneses on 04-28-2023 Color (U) Yellow Yellow [facility] Creatine kinase [Enzymatic a ctivity/volume] in Serum or PlasmaOrdered By: Joe Meneses on 04-28-2023 CK [Catalytic activity/Vol] 30 U/L 30-223 [facility] Creatinine [Mass/volume] in Serum or PlasmaOrdered By: Joe Meneses on 04-28-2023 Creatinine [Mass/Vol] 0.93 mg/dL 0.60-1.20 [facility] Eosinophils Auto (Bld) [#/Vo l]Ordered By: Joe Meneses on 04-28-2023 Eosinophils (Bld) [#/Vol] 0.1 10*3/uL 0.0-0.45 [facility] Eosinophils/100 WBC Auto (Bl d)Ordered By: Joe Meneses on 04-28-2023 Eosinophils/100 WBC (Bld) 0.5 % . [facility] Erythrocyte distribution wid th Auto (RBC) [Ratio]Ordered By: Joe Meneses on 04-28-2023 Erythrocyte distribution width (RBC) [Ratio] 13.8 % 11.9-15.3 [facility] Glucose [Mass/volume] in Ser um or PlasmaOrdered By: Joe Meneses on 04-28-2023 Glucose [Mass/Vol] 166 mg/dL 70-100 [facility] Comment on above: ADA recommended refe rence rangeRandom Glucose Reference Range is dependent on time and content of last meal. Glucose of more than 200 mg/dL in a nonstressed, ambulatory subject supports the diagnosis of Diabetes Mellitus. Hematocrit Auto (Bld) [Volum e fraction]Ordered By: Joe Meneses on 04-28-2023 Hematocrit (Bld) [Volume fraction] 36.7 % 34.0-46.4 [facility] Hemoglobin [Mass/volume] in BloodOrdered By: Joe Meneses on 04-28-2023 Hemoglobin (Bld) [Mass/Vol] 11.9 g/dL 11.8-15.4 [facility] INR in Platelet poor plasma by Coagulation assayOrdered By: Joe Meneses on 04-28-2023 INR Coag (PPP) [Relative time] 1.0 {INR} [facility] Comment on above: INR Therapeutic Rang e A) Pre- and Peroperative OAT started two weeks before surgery. NOT HIP SURGERY: 1.5 - 2.5 HIP SURGERY: 2 - 3B) Primary and secondary prevention of venous THROMBOSIS: 2 - 3C) Active venous thrombosis, pulmonary embolismand prevention of recurrent venous thrombosis: 2 - 3D) Prevention of arterial thromboembolismincluding patients with mechanical heart valves: 3 - 4.5 Ketones Auto test strip (U) [Mass/Vol]Ordered By: Joe Meneses on 04-28-2023 Ketones (U) [Mass/Vol] 1+ Negative Fi [facility] Laboratory - CoagulationOrde red By: Joe Meneses on 04-28-2023 PT Coag (PPP) [Time] 11.4 s 9.0-12.[address] [facility] Leukocytes [#/volume] correc andrae for nucleated erythrocytes in Blood by Automated counOrdered By: Joe Meneses on 04-28-2023 WBC corrected for nucl RBC Auto (Bld) [#/Vol] 11.5 10*3/uL 3.8-11.6 [facility] Lymphocytes Auto (Bld) [#/Vo l]Ordered By: Joe Meneses on 04-28-2023 Lymphocytes (Bld) [#/Vol] 1.4 10*3/uL 1.00-4.8 [facility] Lymphocytes/100 WBC Auto (Bl d)Ordered By: Joe Meneses on 04-28-2023 Lymphocytes/100 WBC (Bld) 12.1 % . [facility] MCH Auto (RBC) [Entitic mass ]Ordered By: Joe Meneses on 04-28-2023 MCH (RBC) [Entitic mass] 29.7 pg 24.7-34.3 [facility] MCHC Auto (RBC) [Mass/Vol]Or dered By: Joe Meneses on 04-28-2023 MCHC (RBC) [Mass/Vol] 32.4 g/dL 32.0-35.0 [facility] MCV Auto (RBC) [Entitic vol] Ordered By: Joe Meneses on 04-28-2023 MCV (RBC) [Entitic vol] 91.8 fL 80-100 [facility] Monocyte distribution width [Entitic volume] in Blood by AutomatedOrdered By: Joe Meneses on 04-28-2023 Monocyte distribution width Auto (Bld) [Entitic vol] 19.54 % 0.00-20.00 [facility] Monocytes Auto (Bld) [#/Vol] Ordered By: Joe Meneses on 04-28-2023 Monocytes (Bld) [#/Vol] 0.8 10*3/uL 0.0-0.8 [facility] Monocytes/100 WBC Auto (Bld) Ordered By: Joe Meneses on 04-28-2023 Monocytes/100 WBC (Bld) 7.4 % . [facility] Natriuretic peptide B [Mass/ Vol]Ordered By: Joe Meneses on 04-28-2023 Natriuretic peptide B (Bld) [Mass/Vol] 140.0 pg/mL 5-100 [facility] Neutrophils Auto (Bld) [#/Vo l]Ordered By: Joe Meneses on 04-28-2023 Neutrophils (Bld) [#/Vol] 9.0 10*3/uL 1.8-7.7 [facility] Neutrophils/100 WBC Auto (Bl d)Ordered By: Joe Mensees on 04-28-2023 Neutrophils/100 WBC (Bld) 78.5 % . [facility] Nitrite Test strip Ql (U)Ord ered By: Joe Meneses on 04-28-2023 Nitrite Ql (U) Negative Negative [facility] No Panel InformationOrdered By: Joe Meneses on 04-28-2023 Estimated GFR (CKD-EPI) > 60.0 mL/Min [facility] Creatinine Clearance (Chem 60.21 [facility] Nucleated erythrocytes [Pres ence] in Blood by Automated countOrdered By: Joe Meneses on 04-28-2023 Nucleated RBC Auto Ql (Bld) 0.0 /100{WBC} 0-0.5 [facility] Platelet mean volume Auto (B ld) [Entitic vol]Ordered By: Joe Meneses on 04-28-2023 Platelet mean volume (Bld) [Entitic vol] 8.5 fL 6.3-10.7 [facility] Platelets Auto (Bld) [#/Vol] Ordered By: Joe Meneses on 04-28-2023 Platelets (Bld) [#/Vol] 241 10*3/uL 150-450 [facility] Potassium [Moles/volume] in Serum or PlasmaOrdered By: Joe Meneses on 04-28-2023 Potassium [Moles/Vol] 4.1 mmol/L 3.5-5.1 [facility] Protein Auto test strip (U) [Mass/Vol]Ordered By: Joe Meneses on 04-28-2023 Protein (U) [Mass/Vol] 100 mg/dL Negative Fi [facility] RBC Auto (Bld) [#/Vol]Ordere d By: Joe Meneses on 04-28-2023 RBC (Bld) [#/Vol] 4.00 10*6/uL 3.60-5.00 [facility] Serum or plasma anion gap de terminationOrdered By: Joe Meneses on 04-28-2023 Anion gap [Moles/Vol] 10.3 mmol/L 6.0-15.0 [facility] Sodium [Moles/volume] in Ser um or PlasmaOrdered By: Joe Meneses on 04-28-2023 Sodium [Moles/Vol] 140 mmol/L 136-145 [facility] Specific gravity Auto test s trip (U) [Rel density]Ordered By: Joe Meneses on 04-28-2023 Specific gravity (U) [Rel density] 1.023 1.001-1.03 0 [facility] Squamous epithelial cells de tection in urine sediment by light microscopyOrdered By: Joe Meneses on 04-28-2023 Epithelial cells.squamous LM Ql (Urine sed) 10-19 [HPF] 0-2 [facility] Troponin I.cardiac [Mass/vol ume] in Serum or Plasma by Detection limit <= 0.01 ng/Ordered By: Joe Meneses on 04-28-2023 Troponin I.cardiac DL <= 0.01 ng/mL [Mass/Vol] 3.8 pg/mL 0.0-15.0 [facility] Urea nitrogen [Mass/volume] in Serum or PlasmaOrdered By: Joe Meneses on 04-28-2023 Urea nitrogen [Mass/Vol] 21 mg/dL 7-25 [facility] Urine bacteria detection by automated methodOrdered By: Joe Meneses on 04-28-2023 Bacteria Auto Ql (U) None seen None Seen [facility] Urine clarity by refractomet ry automatedOrdered By: Joe Meneses on 04-28-2023 Clarity Refractometry automated (U) Cloudy Clear [facility] Urine culture routineOrdered By: Joe Meneses on 04-28-2023 Bacteria identified Cx Nom (U) [facility] Bacteria identified Cx Nom (U) [facility] Urine glucose measurement by automated test strip (mass/volume)Ordered By: Joe Meneses on 04-28-2023 Glucose Auto test strip (U) [Mass/Vol] 250 mg/dL Normal [facility] Urine hemoglobin detection b y automated test stripOrdered By: Joe Meneses on 04-28-2023 Hemoglobin Auto test strip Ql (U) Negative Negative [facility] Urine leukocyte esterase det ection by automated test stripOrdered By: Joe Meneses on 04-28-2023 Leukocyte esterase Auto test strip Ql (U) 2+ Negative [facility] Urine sediment renal epithel ial cell count by microscopy (number/high power field)Ordered By: Joe Meneses on 04-28-2023 Epithelial cells.renal LM.HPF (Urine sed) [#/Area] N/A [facility] Urobilinogen Auto test strip (U) [Mass/Vol]Ordered By: Joe Meneses on 04-28-2023 Urobilinogen (U) [Mass/Vol] Normal mg/dL Normal [facility] WBC Auto (Bld) [#/Vol]Ordere d By: Joe Meneses on 04-28-2023 WBC (Bld) [#/Vol] 11.5 10*3/uL 3.8-11.6 [facility] pH Auto test strip (U)Ordere d By: Joe Meneses on 04-28-2023 pH (U) 6.0 [pH] 5.0-9.0 [facility] CNPNon 04-21-2023 CRYSTALN Telephone (RELL) ----- BRENDA SEGURA ([id number]) 1960 F Date Time Provider Department 04/21/23 JOSE EDUARDO CHU During your visit today, we recorded the following information about you: Francie Buenrostro MA 04/21/2023 9:56 AM Signed Received referral to Cardiology for PSVT and records from [facility]. Sent to scheduling and also sent records of scanning. Gretta Gordon 04/30/2023 2:01 PM Signed Pt's insurance is [id number]; created [facility] referral which requires financial clearance prior to scheduling. Gretta Gordon 05/04/2023 2:12 PM Signed Pt's referral was authorized for scheduling. Called pt to make an appt in Cardiology. Pt is already scheduled with a nurse recruiter in [place] and declined to schedule. Allergies As of Date: 04/21/2023 Noted Allergy Reaction RELPAX (ELETRIPTAN HBR) 10/18/2014 16 - Unknown Date Reviewed: 08/09/2015 Reviewed by: Katina More - Fully Assessed Reason for Visit: Received Outside Medical Records [[id number]] Prescriptions as of 05/04/2023 - aspirin, enteric coated (ASPIRIN, ENTERIC COATED) 81 mg EC tablet Take 81 mg by mouth once daily. - CALCIUM CARBONATE/VITAMIN D3 (CALCIUM 600 + D ORAL) Take 600 mg by mouth once daily. - citalopram (CELEXA) 20 mg tablet Take 20 mg by mouth once daily. - MULTIVIT ANDMINERALS/FERROUS FUM (MULTI VITAMIN ORAL) Take by mouth once daily. - VITAMIN E,DL-ALPHA TOCOPHEROL, (VITAMIN E, BULK, MISC) Take 400 Units by mouth twice daily. - PRAVASTATIN 40 MG TAB Take one(1) tablet daily. - TRIAMCINOLONE ACETONIDE 0.1 % TOPICAL CREAM Apply to psoriasis twice daily. - ATENOLOL 50 MG TAB Take one(1) tablet daily. Problem List As Of Date 04/21/2023 Noted Resolved OTHER PSORIASIS [L40.8] 04/06/2009 Paroxysmal SVT (supraventricular tachycardia) (*10/19/2014 Hypertension [I10] 10/19/2014 Encounter Status:Closed by GRETTA GORDON on 04/30/23 Normal [facility] Urinalysis - AUTOMATEDon Appearance (U) clear [employer] Other Bilirubin Ql (U) Negative [employer] Other Color (U) dark yellow [employer] Other Glucose Ql (U) 250 [employer] Other Hemoglobin Ql (U) moderate invi C [employer] Other Ketones Ql (U) 15 [employer] Other Leukocyte esterase Test strip Ql (U) Negative [employer] Other Nitrite Ql (U) Negative [employer] Other pH (U) 6.5 [pH] [employer] Other Protein Ql (U) 30 [employer] Other Specific gravity (U) [Rel density] 1.025 [employer] Other Urobilinogen (U) [Mass/Vol] 0.2 mg/dL [employer] Other Urinalysis - AUTOMATED No rt [employer] Other Urine culture routineOrdered By: Kathya Chang on 03-06-2023 Bacteria identified Cx Nom (U) 2 Days [facility] XR Wrist Complete Right*on 0 01-05-2023 XR Wrist Complete Right* HISTORY: Wrist pain for 3 weeks. No known injury. COMPARISON: None RESULT: No acute fracture. No dislocation. Mild to moderate degenerative changes involving the thumb CMC and triscaphe joints, with small osteophytes. Soft tissues unremarkable. No other significant abnormality. IMPRESSION: No acute osseous findings. Report reported and signed by Art Alston on 01/05/2023 1039 Normal [facility] [employer] [facility] Office/Clinic Noteo n 10-09-2022 Podiatry Office/Clinic Note Chief Complaint Symptom check left ankle s/p inj w/ ultra sound 09/11/2022 History of Present Illness Patient is a pleasant 61-year-old female presents for follow-up of nerve entrapment symptoms of the left lower extremity She has undergone EMG which showed S1 radiculopathy. She has had pain greater than 6 months. She has been following with Dr. Goff pain management. She relates that he has done several injections which is resolved her pain almost 100%. She is currently very pleased with her treatment. Currently has no pain or issues. Does get occasional cold feet and cramping in her feet and legs. This is intermittent. Not regular. Relates that she sees Dr. Santos for primary care and for management of her diabetes. Relates morning glucose of 105. Overall her diabetes is well controlled currently. She is here today to discuss potential diagnostic injection. Review of Systems Constitutional Head Nose Mouth Throat Cardio/Respiratory Hematologic Chills: No Headache: No Shortness of Breath: No History of DVT: No Fever: No Sore Throat: No Chest Pain: No History of Claudication: No Ear Pain: No Palpitation: No History of Aneurysm: No History of Gangrene: No Genitourinary Musculoskeletal Psychiatric Vascular Burning: No Muscle Weakness: No Anxiety: No Blood Disorder: No Pain: No Joint Pain: No Depression: No Numbness: No Gastrointestinal Dermatology Rheumatologic Problems: No Rash: No History of Rheumatic Arthritis: No Pain: No Pruritus: No History of Gout: No History of Lupus: No Physical Exam Vitals & Measurements HR: 108 (Peripheral) BP: 131/84 HT: 170 cm WT: 63.8 kg WT: 63.8 kg (Dosing) BMI: 22.08 Orthopedic: Bony foot structure appears grossly rectus Extrinsic and intrinsic musculature of the foot are grossly normal with strengths of 5/5 all movers of the foot and ankle. Minimal pain to passive or active range of motion bilateral and free of overt joint crepitation. Negative talar tilt and negative anterior drawer on the left. No pain with attempted range of motion of the left ankle or left subtalar joint. No pain to palpation along the peroneal tendons. Dermatologic: Skin is within normal limits Negative for overt rashes or irregular pigmented lesions. Skin turgor normal. Well-healed cicatrices noted to the anterior medial ankle, lateral ankle joint, and lateral ankle along the peroneal tendons Neurologic: Gross and epicritic sensation altered on the left compared to the right Protective sensation altered on the left compared to the right as measured with [place] [employer] monofilament. Gross motor intact bilateral. Negative Tinel to the tibial nerve at the tarsal tunnel, saphenous nerve. Negative Tinel at the left superficial peroneal nerve. Negative Tinel to the left sural nerve. Negative Tinel at the left common peroneal nerve. Vascular: Pedal Pulses palpable at Dorsalis Pedis and weakly palpable posterior Tibial Bilateral. Capillary fill time approximately 3 seconds bilateral at toes when leg elevated. Negative for significant edema in either lower extremity Skin temp warm to cool proximal to distal bilateral. Additional Vitals BP Position/Location: Sitting, Left arm Assessment/Plan 1. Entrapment of left superficial peroneal nerve Ordered: US Lower Extr. Non-Vasc. Limited Left 2. Disorder of left sural nerve 3. Entrapment of common peroneal nerve 4. Diabetic peripheral neuropathy associated with type 2 diabetes mellitus 5. Weak pulse 6. History of ankle surgery 7. Neuritis of left foot 8. Lumbosacral radiculitis -E/M with time spent with patient dedicated to discussion of pathogenesis and treatment options for patient's problems including padding, offloading, stretching exercises, protective boot wearing, diagnostic injection, pain referral, neurology referral. -Radiographs tib-fib reviewed prior Encouraged use of lace up ankle brace and shoe gear modification if it is helping Continue nerve vitamins Reviewed EMG and MRI prior. Patient does have findings of S1 radiculopathy on EMG. Reviewed Dr. Goff pain management notes. Appreciate assistance. She currently has almost complete pain relief from his treatment regimen. I encouraged continued follow-up as needed if she has recurrence of pain with him. Discussed performing diagnostic injections of the left common peroneal nerve, left sural nerve, left superficial peroneal nerve under ultrasound guidance. We will forego this as patient is not currently having pain, she wants to defer injections at this time. I feel this is feasible given she is not having pain. Discussed possibility of double crush syndrome. Prior common peroneal nerve injection did give quite a bit of pain relief she relates. She also had injections from Dr. Goff which provided pain relief around the same time. All questions and concerns answered. Patient able to plan. Given history of diabetes mellitus an (more content not included)... [facility] Podiatry Office/Clinic Noteo n 09-11-2022 Podiatry Office/Clinic Note Chief Complaint possible inj. ultasound perph nerv entrapment xr today History of Present Illness Patient is a pleasant 61-year-old female presents with burning and tingling pain on the left lower extremity. In October 2021 she had a left ankle surgery including ankle arthroscopy, lateral ankle stabilization, and drilling of osteochondral defect of the left ankle. She states that since the surgery her stability and musculoskeletal pain have greatly improved. She has no numbness tingling and burning pain to the left ankle. She was being seen at the reconstruction [place] in [facility] by Shira Quick Physician faculty research assistant. She was referred here for evaluation of her neuritic/nerve pain. She has undergone EMG which showed S1 radiculopathy. She has had pain greater than 6 months. She is tried nerve vitamins, activity modification, lace up ASO ankle brace, shoe gear modification, topical analgesics, oral analgesics, provider directed analgesics with little relief in pain. She presents for reevaluation today. Since last visit she has followed with pain management Dr. Goff. He gave her tramadol, topical medication/analgesic, and nerve vitamins. She relates this is helping somewhat with the pain but pain still persists. She is also scheduled to have a sural nerve lysis of adhesion by Dr. Goff. Presents today for discussion of potential diagnostic nerve injection of left lower extremity. Review of Systems Constitutional Head Nose Mouth Throat Cardio/Respiratory Hematologic Chills: No Headache: No Shortness of Breath: No History of DVT: No Fever: No Sore Throat: No Chest Pain: No History of Claudication: No Ear Pain: No Palpitation: No History of Aneurysm: No History of Gangrene: No Genitourinary Musculoskeletal Psychiatric Vascular Burning: No Muscle Weakness: No Anxiety: No Blood Disorder: No Pain: No Joint Pain: No Depression: No Numbness: No Gastrointestinal Dermatology Rheumatologic Problems: No Rash: No History of Rheumatic Arthritis: No Pain: No Pruritus: No History of Gout: No History of Lupus: No Physical Exam Vitals & Measurements HR: 90 (Peripheral) BP: 169/90 HT: 170 cm WT: 63.8 kg WT: 63.8 kg (Dosing) BMI: 22.08 Orthopedic: Bony foot structure appears grossly rectus Extrinsic and intrinsic musculature of the foot are grossly normal with strengths of 5/5 all movers of the foot and ankle. Minimal pain to passive or active range of motion bilateral and free of overt joint crepitation. Negative talar tilt and negative anterior drawer on the left. No pain with attempted range of motion of the left ankle or left subtalar joint. No pain to palpation along the peroneal tendons. Dermatologic: Skin is within normal limits Negative for overt rashes or irregular pigmented lesions. Skin turgor normal. Well-healed cicatrices noted to the anterior medial ankle, lateral ankle joint, and lateral ankle along the peroneal tendons Neurologic: Gross and epicritic sensation altered on the left compared to the right Protective sensation altered on the left compared to the right as measured with [place] [employer]angel monofilament. Gross motor intact bilateral. Negative Tinel to the tibial nerve at the tarsal tunnel, saphenous nerve. Positive Tinel at the left superficial peroneal nerve. Positive Tinel to the left sural nerve. Negative Tinel at the left common peroneal nerve. Vascular: Pedal Pulses palpable at Dorsalis Pedis and weakly palpable posterior Tibial Bilateral. Capillary fill time approximately 3 seconds bilateral at toes when leg elevated. Negative for significant edema in either lower extremity Skin temp warm to cool proximal to distal bilateral. Additional Vitals BP Position/Location: Sitting, Right arm Assessment/Plan 1. Entrapment of left superficial peroneal nerve 2. Disorder of left sural nerve 3. Entrapment neuropathy of common peroneal nerve 4. Lumbosacral radiculopathy at S1 5. Neuritis of left foot 6. History of ankle surgery 7. Osteochondral defect of talus 8. Diabetic peripheral neuropathy associated with type 2 diabetes mellitus -E/M with time spent with patient dedicated to discussion of pathogenesis and treatment options for patient's problems including padding, offloading, stretching exercises, protective boot wearing, diagnostic injection, pain referral, neurology referral. -Radiographs tib-fib reviewed as above. Encouraged use of lace up ankle brace and shoe gear modification if it is helping Handout given for nerve vitamins. Encouraged on use. Reviewed EMG and MRI. Patient does have findings of S1 radiculopathy on EMG. Reviewed Dr. Goff pain management notes. Appreciate assistance. We will follow along with his treatment of the sural nerve adhesions. The patient will require surgical intervention then we will obtain vascular arterial segmental studies prior to surgical intervention. Discussed performing diagnostic injections of t (more content not included)... [facility] US Lower Extr. Non-Vasc. Perez ited Lefton 09-11-2022 US Lower Extr. Non-Vasc. Limited Left EXAM: Limited Diagnostic Musculoskeletal Ultrasound [with Ultrasound-Guided Injection of left common peroneal nerve at the fibular head] CLINICAL HISTORY: Patient with history of neuritic type pain and has history of left ankle surgery. Concern for potential common peroneal nerve entrapment, superficial peroneal nerve entrapment, sural nerve entrapment on the left TECHNIQUE: Musculoskeletal Ultrasound with [employer] e Next Gen unit with [12 MHz][C1-5] transducer FINDINGS: Anatomic left common peroneal nerve at the fibular head IMPRESSION: Entrapment left common peroneal nerve PROCEDURE: The left common peroneal nerve at the fibular head was identified and the position of the transducer was marked on the skin. [Color Doppler was used to identify the location of any vasculature to ensure that no blood vessels were in the pathway of the needle. ] The area of the injection and the transducer were both prepared sterilely. The transducer was then placed at the marked spot on the skin and the common peroneal nerve was again localized with the ultrasound. It was identified in both the long and transverse planes. under direct ultrasound guidance the position of the needle was confirmed in transverse axis, 5 mL of 0.5% Marcaine plain was injected into the common peroneal nerve. the patient tolerated the procedure without difficulty. Site dressed with Band-Aid. Patient will return to clinic in 1 to 2 weeks for evaluation of diagnostic injection. Final Signed by: Tommy Reis DPM Signed (Electronic Signature): 09/11/2022 2:37 pm Transcribed DT/TM: 09/11/2022 2:37 (If Report Is Signed, Electronically Signed in Other Vendor System) [facility] XR Tibia/Fibula Lefton 09-11 XR Tibia/Fibula Left 2 views left tib-fi b demonstrate: No acute fracture dislocations noted. Normal fractures of the fibular head noted. No bone spurring or periosteal reaction noted at the fibular head. No varum or valgum of the tibia noted. No foreign bodies noted. No increase in soft tissue volume, density, or edema noted. No soft tissue calcifications noted. Final Signed by: Tommy Resi DPM Signed (Electronic Signature): 09/11/2022 11:14 am Transcribed DT/TM: 09/11/2022 11:14 (If Report Is Signed, Electronically Signed in Other Vendor System) [facility] Urinalysis - DIPSTICKon 08-24 Appearance (U) cloudy [employer] Other Bilirubin Ql (U) Negative [employer] Other Color (U) yellow [employer] Other Glucose Ql (U) Negative [employer] Other Hemoglobin Ql (U) Small invi [email or web address] Other Ketones Ql (U) Negative [employer] Other Leukocyte esterase Test strip Ql (U) Negative [employer] Other Nitrite Ql (U) Negative [employer] Other pH (U) 7.0 [pH] [employer] Other Protein Ql (U) 100 [employer] Other Specific gravity (U) [Rel density] >=1.030 [employer] Other Urobilinogen (U) [Mass/Vol] 0.2 mg/dL [employer] Other Urinalysis - DIPSTICK Nor [employer] Other Urine Cultureon 09-07-2022 Urine Culture >100,000 [employer] Other Podiatry Office/Clinic Noteo n 07-29-2022 Podiatry Office/Clinic Note Chief Complaint Surgery left ankle 01/06/22, increased pain and swelling. XR TODAY DM no pain meds History of Present Illness Patient is a pleasant 61-year-old female presents with burning and tingling pain on the left lower extremity. In October 2021 she had a left ankle surgery including ankle arthroscopy, lateral ankle stabilization, and drilling of osteochondral defect of the left ankle. She states that since the surgery her stability and musculoskeletal pain have greatly improved. She has no numbness tingling and burning pain to the left ankle. She was being seen at the [facility] [place] in [facility] by Shira Quick Physician faculty research assistant. She was referred here for evaluation of her neuritic/nerve pain. She has undergone EMG which showed S1 radiculopathy. She has had pain greater than 6 months. She is tried nerve vitamins, activity modification, lace up ASO ankle brace, shoe gear modification, topical analgesics, oral analgesics, provider directed analgesics with little relief in pain. She presents today for evaluation. Does relate history of knee trauma as well as radiating pain from her knee down towards her ankle. Review of Systems Constitutional Head Nose Mouth Throat Cardio/Respiratory Hematologic Chills: No Headache: No Shortness of Breath: No History of DVT: No Fever: No Sore Throat: No Chest Pain: No History of Claudication: No Ear Pain: No Palpitation: No History of Aneurysm: No History of Gangrene: No Genitourinary Musculoskeletal Psychiatric Vascular Burning: No Muscle Weakness: No Anxiety: No Blood Disorder: No Pain: No Joint Pain: No Depression: No Numbness: No Gastrointestinal Dermatology Rheumatologic Problems: No Rash: No History of Rheumatic Arthritis: No Pain: No Pruritus: No History of Gout: No History of Lupus: No Physical Exam Vitals & Measurements HR: 105 (Peripheral) BP: 152/77 HT: 170 cm WT: 63.8 kg WT: 63.8 kg (Dosing) BMI: 22.08 Orthopedic: Bony foot structure appears grossly rectus Extrinsic and intrinsic musculature of the foot are grossly normal with strengths of 5/5 all movers of the foot and ankle. Minimal pain to passive or active range of motion bilateral and free of overt joint crepitation. Negative talar tilt and negative anterior drawer on the left. No pain with attempted range of motion of the left ankle or left subtalar joint. No pain to palpation along the peroneal tendons. Dermatologic: Skin is within normal limits Negative for overt rashes or irregular pigmented lesions. Skin turgor normal. Well-healed cicatrices noted to the anterior medial ankle, lateral ankle joint, and lateral ankle along the peroneal tendons Neurologic: Gross and epicritic sensation altered on the left compared to the right Protective sensation altered on the left compared to the right as measured with [place] [employer] monofilament. Gross motor intact bilateral. Negative Tinel to the sural nerve, tibial nerve at the tarsal tunnel, saphenous nerve. Positive Tinel at the left superficial peroneal nerve. Negative Tinel at the left common peroneal nerve. Positive tingling, burning to associated toes when manually palpated and with squeeze test of the associated metatarsal heads as mentioned above. Vascular: Pedal Pulses palpable at Dorsalis Pedis and weakly palpable posterior Tibial Bilateral. Capillary fill time approximately 3 seconds bilateral at toes when leg elevated. Negative for significant edema in either lower extremity Skin temp warm to cool proximal to distal bilateral. Additional Vitals BP Position/Location: Sitting, Right arm Assessment/Plan 1. Lumbosacral radiculopathy at S1 2. History of ankle surgery 3. Neuritis of left foot 4. Entrapment of left superficial peroneal nerve 5. Entrapment neuropathy of common peroneal nerve 6. Osteochondral defect of talus 7. Diabetic peripheral neuropathy associated with type 2 diabetes mellitus Orders: External Referral Referral to Pain Specialist -E/M with time spent with patient dedicated to discussion of pathogenesis and treatment options for patient's problems including padding, offloading, stretching exercises, protective boot wearing, diagnostic injection, pain referral, neurology referral. -Radiographs reviewed as above. Encouraged use of lace up ankle brace and shoe gear modification if it is helping Handout given for nerve vitamins. Encouraged on use. Reviewed EMG and MRI. Patient does have findings of S1 radiculopathy on EMG. I discussed referral to pain management for evaluation of her S1 radiculopathy. Pending evaluation by pain management we will also consider vascular lab arterial segmental studies to assess for peripheral arterial occlusive disease. Discussed that pending pain management evaluation we will also consider diagnostic injection of the left common peroneal nerve and left superficial peroneal nerve potentially under ultrasound guidance. Dis (more content not included)... [facility] Provider Letteron 07-29-2022 Provider Letter (Inserted Image. Rama ble to display) Rajni Quick PA-C [address] [place] [address], [place] [address] Re: Brenda Segura Date of Visit: 07/29/2022 Dear Rajni Quick PA-C, [facility] [address] [place] [address], [phone] Fax: [phone] Date: 07/29/2022 18:09:14 Dear Abdelrahman MOREIRA, Rajni Valiente Thank you for referring Brenda Segura Estella who was seen on 07/22/2022 10:30:00. Please see attached note for further details and please call with any questions or concerns. _ Thank you, Tommy Reis DPM Let me know if you have any questions or concerns. Sincerely, VISHNU Pino Providers: Bonita Santos The following document(s) were included in the letter: July 29, 2022 17:55:29 EST - (07/29/2022) Office Visit Note [facility] XR Ankle 3 Views Lefton 12-0 XR Ankle 3 Views Left 3 weightbearing vi ews left ankle demonstrate: Radiolucency in the distal fibula consistent with probable drill hole from soft tissue anchor. Ankle mortise is well aligned and maintained with no increase in medial clear space. No increase in tib-fib clear space. Radiolucency of the medial talar dome noted. Spurring of the plantar and posterior calcaneus noted. Decreased calcaneal clinician angle noted. No acute fractures or dislocations noted. No foreign bodies noted. No increase in soft tissue volume, density, or edema noted. No soft tissue calcifications noted. Final Signed by: Tommy Reis DPM Signed (Electronic Signature): 07/29/2022 11:44 am Transcribed DT/TM: 07/29/2022 11:44 (If Report Is Signed, Electronically Signed in Other Vendor System) [facility] XR Foot 3 Views Lefton 07-29 XR Foot 3 Views Left 3 weightbearing vie ws left foot demonstrate: Spurring of the posterior and plantar calcaneus noted. Decreased calcaneal inclination angle noted. No decrease in Meary's angle noted. Increased lateral deviation angle of fifth metatarsal noted. Contracture of the lesser digits noted. No acute fractures or dislocations noted. No foreign bodies noted. No soft tissue calcifications noted. No increase in soft tissue volume, density, or edema noted. Final Signed by: Tommy Reis DPM Signed (Electronic Signature): 07/29/2022 11:43 am Transcribed DT/TM: 07/29/2022 11:43 (If Report Is Signed, Electronically Signed in Other Vendor System) [facility] Urinalysis - AUTOMATEDon Appearance (U) cloudy [employer] Other Bilirubin Ql (U) Negative [employer] Other Color (U) yellow [employer] Other Glucose Ql (U) 500 [employer] Other Hemoglobin Ql (U) small [facility] [email or web address] Other Ketones Ql (U) Negative [employer] Other Leukocyte esterase Test strip Ql (U) small [place] [employer] Other Nitrite Ql (U) Negative [employer] Other pH (U) 5.5 [pH] [employer] Other Protein Ql (U) 100 [employer] Other Specific gravity (U) [Rel density] >=1.030 [employer] Other Urobilinogen (U) [Mass/Vol] 0.2 mg/dL [employer] Other Urinalysis - AUTOMATED No rt [employer] Other CBC AUTO DIFFon 02-05-2022 BASO # 0.0 103/ul Normal 0.0-0.1 [facility] Comment on above: Performed By: #### C BC #### [facility] [address] [place] [address] Dr. Mercy Mcgovern Basophils/100 WBC (Bld) 0.2 % Normal 0.2-2.0 [facility] Comment on above: Performed By: #### C BC #### [facility] [address] [place] [address] Dr. Mercy Mcgovern EO # 0.1 103/ul Normal 0.0-0.7 [facility] Comment on above: Performed By: #### C BC #### [facility] [address] [place] [address] Dr. Mercy Mcgovern Eosinophils/100 WBC (Bld) 0.5 % Critically low 0.9-7.0 [facility] Comment on above: Performed By: #### C BC #### [facility] [address] [place] [address] Dr. Mercy Mcgovern Erythrocyte distribution width (RBC) [Ratio] 13.2 % Normal 11.0-15.0 [facility] Comment on above: Performed By: #### C BC #### [facility] [address] [place] [address] Dr. Mercy Mcgovern Hematocrit (Bld) [Volume fraction] 32.8 % Critically low 36.0-48.0 [facility] Comment on above: Performed By: #### C BC #### [facility] [address] [place] [address] Dr. Mercy Mcgovern Hemoglobin (Bld) [Mass/Vol] 10.6 g/dL Critically low 12.0-16.0 [facility] Comment on above: Performed By: #### C BC #### [facility] [address] [place] [address] Dr. Mercy Mcgovern IG # 0.05 10e3/ul Critically high 0.00-0.03 [facility] Comment on above: Performed By: #### C BC #### [facility] [address] [place] [address] Dr. Mercy Mcgovern IG % 0.4 % Normal 0.0-0.5 [facility] Comment on above: Performed By: #### C BC #### [facility] [address] [place] [address] Dr. Mercy Mcgovern LYMPH # 1.8 103/ul Normal 1.2-3.8 [facility] Comment on above: Performed By: #### C BC #### [facility] [address] [place] [address] Dr. Mercy Mcgovern Lymphocytes/100 WBC (Bld) 15.1 % Critically low 20.5-60.0 [facility] Comment on above: Performed By: #### C BC #### [facility] [address] [place] [address] Dr. Mercy Mcgovern MANUAL DIFF REQ NO Normal [facility] Comment on above: Performed By: #### C BC #### [facility] [address] [place] [address] Dr. Mercy Mcgovern MCH (RBC) [Entitic mass] 30.0 pg Normal 26.7-34.0 [facility] Comment on above: Performed By: #### C BC #### [facility] [address] [place] [address] Dr. Mercy Mcgovern MCHC (RBC) [Mass/Vol] 32.3 g/dL Normal 29.9-35.2 [facility] Comment on above: Performed By: #### C BC #### [facility] [address] [place] [address] Dr. Mercy Mcgovern MCV (RBC) [Entitic vol] 92.9 fL Normal 81.0-99.0 [facility] Comment on above: Performed By: #### C BC #### [facility] [address] [place] [address] Dr. Mercy Mcgovern MONO # 0.8 103/ul Normal 0.3-0.8 [facility] Comment on above: Performed By: #### C BC #### [facility] [address] [place] [address] Dr. Mercy Mcgovern Monocytes/100 WBC (Bld) 6.9 % Normal 1.7-12.0 [facility] Comment on above: Performed By: #### C BC #### [facility] [address] [place] [address] Dr. Mercy Mcgovern NEUT # 9.2 103/ul Critically high 1.4-6.5 [facility] Comment on above: Performed By: #### C BC #### [facility] [address] [place] [address] Dr. Mercy Mcgovern Neutrophils/100 WBC (Bld) 76.9 % Critically high 43.0-75.0 [facility] Comment on above: Performed By: #### C BC #### [facility] [address] [place] [address] Dr. Mercy Mcgovern Platelet mean volume (Bld) [Entitic vol] 9.7 fL Normal 9.5-13.5 [facility] Comment on above: Performed By: #### C BC #### [facility] [address] [place] [address] Dr. Mercy Mcgovern PLT 162 103/ul Normal 150-450 [facility] Comment on above: Performed By: #### C BC #### [facility] [address] [place] [address] Dr. Mercy Mcgovern RBC 3.53 106/ul Critically low 4.20-5.40 [facility] Comment on above: Performed By: #### C BC #### [facility] [address] [place] [address] Dr. Mercy Mcgovern WBC 12.0 103/ul Critically high 4.0-11.0 [facility] Comment on above: Performed By: #### C BC #### [facility] [address] [place] [address] Dr. Mercy Mcgovern PROF 14(COMP METB)on 022 Albumin [Mass/Vol] 2.5 g/dL Critically low 3.4-5.0 [facility] Comment on above: Performed By: #### O BSCRN #### [facility] [address] [place] [address] Dr. Mercy Mcgovern Albumin/Globulin [Mass ratio] 0.9 {ratio} Normal [facility] Comment on above: Performed By: #### O BSCRN #### [facility] [address] [place] [address] Dr. Mercy Mcgovern ALP [Catalytic activity/Vol] 69 U/L Normal 46-116 [facility] Comment on above: Performed By: #### O BSCRN #### [facility] [address] [place] [address] Dr. Mercy Mcgovern ALT [Catalytic activity/Vol] 21 U/L Normal 14-59 [facility] Comment on above: Performed By: #### O BSCRN #### [facility] [address] [place] [address] Dr. Mercy Mcgovern Anion gap [Moles/Vol] 13.8 mmol/L Normal [facility] Comment on above: Performed By: #### O BSCRN #### [facility] [address] [place] [address] Dr. Mercy Mcgovern AST [Catalytic activity/Vol] 12 U/L Critically low 15-37 [facility] Comment on above: Performed By: #### O BSCRN #### [facility] [address] [place] [address] Dr. Mercy Mcgovern Bilirubin [Mass/Vol] 0.2 mg/dL Normal 0.2-1.0 [facility] Comment on above: Performed By: #### O BSCRN #### [facility] [address] [place] [address] Dr. Mercy Mcgovern Calcium [Mass/Vol] 8.1 mg/dL Critically low 8.5-10.1 [facility] Comment on above: Performed By: #### O BSCRN #### [facility] [address] [place] [address] Dr. Mercy Mcgovern Chloride [Moles/Vol] 114 mmol/L Critically high 98-107 [facility] Comment on above: Performed By: #### O BSCRN #### [facility] [address] [place] [address] Dr. Mercy Mcgovern CO2 [Moles/Vol] 20.1 mmol/L Critically low 21.0-32.0 [facility] Comment on above: Performed By: #### O BSCRN #### [facility] [address] [place] [address] Dr. Mercy Mcgovern Creatinine [Mass/Vol] 0.59 mg/dL Normal 0.55-1.02 [facility] Comment on above: Performed By: #### O BSCRN #### [facility] [address] [place] [address] Dr. Mercy Mcgovern EGFR-AF SOUTH AFRICAN >60 Normal >=60 [facility] Comment on above: Performed By: #### O BSCRN #### [facility] [address] [place] [address] Dr. Mercy Mcogvern EGFR-NON AF SOUTH AFRICAN >60 Normal >=60 [facility] Comment on above: Performed By: #### O BSCRN #### [facility] [address] [place] [address] Dr. Mercy Mcgovern Globulin (S) [Mass/Vol] 2.9 g/dL Normal [facility] Comment on above: Performed By: #### O BSCRN #### [facility] [address] [place] [address] Dr. Mercy Mcgovern Glucose [Mass/Vol] 143 mg/dL Critically high 74-106 [facility] Comment on above: Performed By: #### O BSCRN #### [facility] [address] [place] [address] Dr. Mercy Mcgovern Potassium [Moles/Vol] 3.9 mmol/L Normal 3.5-5.1 [facility] Comment on above: Performed By: #### O BSCRN #### [facility] [address] [place] [address] Dr. Mercy Mcgovern Protein [Mass/Vol] 5.4 g/dL Critically low 6.4-8.2 [facility] Comment on above: Performed By: #### O BSCRN #### [facility] [address] [place] [address] Dr. Mercy Mcgovern Sodium [Moles/Vol] 144 mmol/L Normal 136-145 [facility] Comment on above: Performed By: #### O BSCRN #### [facility] [address] [place] [address] Dr. Mercy Mcgovern Urea nitrogen [Mass/Vol] 9.0 mg/dL Normal 7.0-18.0 [facility] Comment on above: Performed By: #### O BSCRN #### [facility] [address] [place] [address] Dr. Mercy Mcgovern Urea nitrogen/Creatinine [Mass ratio] 15.3 mg/mg Normal [facility] Comment on above: Performed By: #### O BSCRN #### [facility] [address] [place] [address] Dr. Mercy Mcgovern CBC AUTO DIFFon 02-04-2022 BASO # 0.0 103/ul Normal 0.0-0.1 [facility] Comment on above: Performed By: #### C BC #### [facility] [address] [address] [address] Mercy Mcgovern Basophils/100 WBC (Bld) 0.2 % Normal 0.2-2.0 [facility] Comment on above: Performed By: #### C BC #### [facility] [address] [address] [address] Mercy Mcgovern EO # 0.0 103/ul Normal 0.0-0.7 [facility] Comment on above: Performed By: #### C BC #### [facility] [address] [place] [address] Dr. Mercy Mcgovern Eosinophils/100 WBC (Bld) 0.1 % Critically low 0.9-7.0 [facility] Comment on above: Performed By: #### C BC #### [facility] [address] [place] [address] Dr. Mercy Mcgovern Erythrocyte distribution width (RBC) [Ratio] 12.9 % Normal 11.0-15.0 [facility] Comment on above: Performed By: #### C BC #### [facility] [address] [place] [address] Dr. Mercy Mcgovern Hematocrit (Bld) [Volume fraction] 35.5 % Critically low 36.0-48.0 [facility] Comment on above: Performed By: #### C BC #### [facility] [address] [place] [address] Dr. Mecry Mcgovern Hemoglobin (Bld) [Mass/Vol] 11.3 g/dL Critically low 12.0-16.0 [facility] Comment on above: Performed By: #### C BC #### [facility] [address] [place] [address] Dr. Mercy Mcgovern IG # 0.07 10e3/ul Critically high 0.00-0.03 [facility] Comment on above: Performed By: #### C BC #### [facility] [address] [place] [address] Dr. Mercy Mcgovern IG % 0.4 % Normal 0.0-0.5 [facility] Comment on above: Performed By: #### C BC #### [facility] [address] [place] [address] Dr. Mercy Mcgovern LYMPH # 1.8 103/ul Normal 1.2-3.8 [facility] Comment on above: Performed By: #### C BC #### [facility] [address] [place] [address] Dr. Mercy Mcgovern Lymphocytes/100 WBC (Bld) 11.3 % Critically low 20.5-60.0 [facility] Comment on above: Performed By: #### C BC #### [facility] [address] [place] [address] Dr. Mercy Mcgovern MANUAL DIFF REQ NO Normal [facility] Comment on above: Performed By: #### C BC #### [facility] [address] [place] [address] Dr. Mercy Mcgovern MCH (RBC) [Entitic mass] 30.1 pg Normal 26.7-34.0 [facility] Comment on above: Performed By: #### C BC #### [facility] [address] [place] [address] Dr. Mercy Mcgovern MCHC (RBC) [Mass/Vol] 31.8 g/dL Normal 29.9-35.2 [facility] Comment on above: Performed By: #### C BC #### [facility] [address] [place] [address] Dr. Mercy Mcgovern MCV (RBC) [Entitic vol] 94.4 fL Normal 81.0-99.0 [facility] Comment on above: Performed By: #### C BC #### [facility] [address] [place] [address] Dr. Mercy Mcgovern MONO # 1.1 103/ul Critically high 0.3-0.8 [facility] Comment on above: Performed By: #### C BC #### [facility] [address] [place] [address] Dr. Mercy Mcgovern Monocytes/100 WBC (Bld) 6.7 % Normal 1.7-12.0 [facility] Comment on above: Performed By: #### C BC #### [facility] [address] [place] [address] Dr. Mercy Mcgovern NEUT # 12.8 103/ul Critically high 1.4-6.5 [facility] Comment on above: Performed By: #### C BC #### [facility] [address] [place] [address] Dr. Mercy Mcgovern Neutrophils/100 WBC (Bld) 81.3 % Critically high 43.0-75.0 [facility] Comment on above: Performed By: #### C BC #### [facility] [address] [place] [address] Dr. Mercy Mcgovern Platelet mean volume (Bld) [Entitic vol] 9.8 fL Normal 9.5-13.5 [facility] Comment on above: Performed By: #### C BC #### [facility] [address] [place] [address] Dr. Mercy Mcgovern PLT 175 103/ul Normal 150-450 [facility] Comment on above: Performed By: #### C BC #### [facility] [address] [place] [address] Dr. Mercy Mcgovern RBC 3.76 106/ul Critically low 4.20-5.40 [facility] Comment on above: Performed By: #### C BC #### [facility] [address] [place] [address] Dr. Mercy Mcgovern WBC 15.8 103/ul Critically high 4.0-11.0 [facility] Comment on above: Performed By: #### C BC #### [facility] [address] [place] [address] Dr. Mercy Mcgovern H PYLORI TISSUEon 02-04-2022 H PYL TISSUE, UREASE Negative Normal NEGATIVE [facility] Comment on above: Performed By: #### H PYLT #### [facility] [address] [place] [address] Dr. Mercy Mcgovern HEMOGLOBIN AND HEMATOCRITon 02-04-2022 Hematocrit (Bld) [Volume fraction] 34.1 % Critically low 36.0-48.0 [facility] Comment on above: Performed By: #### H GBHCT #### [facility] [address] [place] [address] Dr. Mercy Mcgovern Hemoglobin (Bld) [Mass/Vol] 10.7 g/dL Critically low 12.0-16.0 [facility] Comment on above: Performed By: #### H GBHCT #### [facility] [address] [place] [address] Dr. Mercy Mcgovern Hematocrit (Bld) [Volume fraction] 36.8 % Normal 36.0-48.0 [facility] Comment on above: Performed By: #### O BSCRN #### [facility] [address] [place] [address] Dr. Mercy Mcgovern Hemoglobin (Bld) [Mass/Vol] 11.8 g/dL Critically low 12.0-16.0 [facility] Comment on above: Performed By: #### O BSCRN #### [facility] [address] [place] [address] Dr. Mercy Mcgovern Hematocrit (Bld) [Volume fraction] 37.0 % Normal 36.0-48.0 [facility] Comment on above: Performed By: #### C BC #### [facility] [address] [place] [address] Dr. Mercy Mcgovern Hemoglobin (Bld) [Mass/Vol] 11.8 g/dL Critically low 12.0-16.0 [facility] Comment on above: Performed By: #### C BC #### [facility] [address] [place] [address] Dr. Mercy Mcgovern POINT OF CARE GLUCOSEon 01-22 Glucose [Mass/Vol] 161 mg/dL Critically high 74-106 [facility] Comment on above: Performed By: #### O BSCRN #### [facility] [address] [place] [address] Dr. Mercy Mcgovern Glucose [Mass/Vol] 116 mg/dL Critically high 74-106 [facility] Comment on above: Performed By: #### C BC #### [facility] [address] [address] [address] Mercy Mcgovern PROF 14(COMP METB)on 022 Albumin [Mass/Vol] 2.7 g/dL Critically low 3.4-5.0 [facility] Comment on above: Performed By: #### C MP #### [facility] [address] [place] [address] Dr. Mercy Mcgovern Albumin/Globulin [Mass ratio] 0.9 {ratio} Normal [facility] Comment on above: Performed By: #### C MP #### [facility] [address] [place] [address] Dr. Mercy Mcgovern ALP [Catalytic activity/Vol] 85 U/L Normal 46-116 [facility] Comment on above: Performed By: #### C MP #### [facility] [address] [place] [address] Dr. Mercy Mcgovern ALT [Catalytic activity/Vol] 24 U/L Normal 14-59 [facility] Comment on above: Performed By: #### C MP #### [facility] [address] [place] [address] Dr. Mercy Mcgovern Anion gap [Moles/Vol] 14.4 mmol/L Normal [facility] Comment on above: Performed By: #### C MP #### [facility] [address] [place] [address] Dr. Mercy Mcgvoern AST [Catalytic activity/Vol] 15 U/L Normal 15-37 [facility] Comment on above: Performed By: #### C MP #### [facility] [address] [place] [address] Dr. Mercy Mcgovern Bilirubin [Mass/Vol] 0.3 mg/dL Normal 0.2-1.0 [facility] Comment on above: Performed By: #### C MP #### [facility] [address] [place] [address] Dr. Mercy Mcgovern Calcium [Mass/Vol] 8.0 mg/dL Critically low 8.5-10.1 [facility] Comment on above: Performed By: #### C MP #### [facility] [address] [address] [address] Mercy Mcgovern Chloride [Moles/Vol] 108 mmol/L Critically high 98-107 [facility] Comment on above: Performed By: #### C MP #### [facility] [address] [address] [address] Mercy Mcgovern CO2 [Moles/Vol] 20.5 mmol/L Critically low 21.0-32.0 [facility] Comment on above: Performed By: #### C MP #### [facility] [address] [address] [address] Mercy Mcgovern Creatinine [Mass/Vol] 0.78 mg/dL Normal 0.55-1.02 [facility] Comment on above: Performed By: #### C MP #### [facility] [address] [place] [address] Dr. Mercy Mcgovern EGFR-AF SOUTH AFRICAN >60 Normal >=60 [facility] Comment on above: Performed By: #### C MP #### [facility] [address] [address] [address] Mercy Mcgovern EGFR-NON AF S[place]TH AFR[place] >60 Normal >=60 [facility] Comment on above: Performed By: #### C MP #### [facility] [address] [place] [address] Dr. Mercy Mcgovern Globulin (S) [Mass/Vol] 3.0 g/dL Normal [facility] Comment on above: Performed By: #### C MP #### [facility] [address] [place] [address] Dr. Mercy Mcgovern Glucose [Mass/Vol] 127 mg/dL Critically high 74-106 [facility] Comment on above: Performed By: #### C MP #### [facility] [address] [place] [address] Dr. Mercy Mcgovern Potassium [Moles/Vol] 3.9 mmol/L Normal 3.5-5.1 [facility] Comment on above: Performed By: #### C MP #### [facility] [address] [place] [address] Dr. Mercy Mcgovern Protein [Mass/Vol] 5.7 g/dL Critically low 6.4-8.2 [facility] Comment on above: Performed By: #### C MP #### [facility] [address] [place] [address] Dr. Mercy Mcgovern Sodium [Moles/Vol] 139 mmol/L Normal 136-145 [facility] Comment on above: Performed By: #### C MP #### [facility] [address] [place] [address] Dr. Mercy Mcgovern Urea nitrogen [Mass/Vol] 13.0 mg/dL Normal 7.0-18.0 [facility] Comment on above: Performed By: #### C MP #### [facility] [address] [place] [address] Dr. Mercy Mcgovern Urea nitrogen/Creatinine [Mass ratio] 16.7 mg/mg Normal [facility] Comment on above: Performed By: #### C MP #### [facility] [address] [place] [address] Dr. Mercy Mcgovern AMYLASEon 02-03-2022 Amylase [Catalytic activity/Vol] 70 U/L Normal 25-115 [facility] Comment on above: Performed By: #### C BC #### [facility] [address] [place] [address] Dr. Mercy Mcgovern CBC W MANUAL DIFFon 02-04-20 22 ATYPICAL LYMPH # Normal [facility] Comment on above: Performed By: #### C MP #### [facility] [address] [place] [address] Dr. Mercy Mcgovern ATYPICAL LYMPH % Normal [facility] Comment on above: Performed By: #### C MP #### [facility] [address] [place] [address] Dr. Mercy Mcgovern BAND # 1.0 103/ul Critically high 0.0-0.3 [facility] Comment on above: Performed By: #### C MP #### [facility] [address] [place] [address] Dr. Mercy Mcgovern BAND % 4 % Normal 0-5 [facility] Comment on above: Performed By: #### C MP #### [facility] [address] [address] [address] Mercy Mcgovern BASOM # 0.00 103/ul Normal 0.00-0.10 [facility] Comment on above: Performed By: #### C MP #### [facility] [address] [place] [address] Dr. Mercy Mcgovern BASOM % 0.0 % Critically low 0.2-2.0 [facility] Comment on above: Performed By: #### C MP #### [facility] [address] [address] [address] Mercy Mcgovern BLAST # Normal [facility] Comment on above: Performed By: #### C MP #### [facility] [address] [place] [address] Dr. Mercy Mcgovern BLAST % Normal [facility] Comment on above: Performed By: #### C MP #### [facility] [address] [place] [address] Dr. Mercy Mcgovern CORRECTED WBC Normal 4.0-11.0 [facility] Comment on above: Performed By: #### C MP #### [facility] [address] [place] [address] Dr. Mercy Mcgovern EOS # 0.00 103/ul Normal 0.00-0.70 [facility] Comment on above: Performed By: #### C MP #### [facility] [address] [place] [address] Dr. Mercy Mcgovern EOS% 0.0 % Critically low 0.9-7.0 [facility] Comment on above: Performed By: #### C MP #### [facility] [address] [place] [address] Dr. Mercy Mcgovern HCT 45.9 % Normal 36.0-48.0 [facility] Comment on above: Performed By: #### C MP #### [facility] [address] [place] [address] Dr. Mercy Mcgovern HGB 15.0 g/dl Normal 12.0-16.0 [facility] Comment on above: Performed By: #### C MP #### [facility] [address] [address] [address] Mercy Mcgovern LYMPHM # 2.56 103/ul Normal 1.20-3.80 [facility] Comment on above: Performed By: #### C MP #### [facility] [address] [address] [address] Mercy Mcgovern LYMPHM% 10.0 % Critically low 20.5-60.0 [facility] Comment on above: Performed By: #### C MP #### [facility] [address] [address] [address] Mercy Mcgovern MCH 29.9 pg Normal 26.7-34.0 [facility] Comment on above: Performed By: #### C MP #### [facility] [address] [place] [address] Dr. Mercy Mcgovern MCHC 32.7 g/dl Normal 29.9-35.2 [facility] Comment on above: Performed By: #### C MP #### [facility] [address] [address] [address] Mercy Mcgovern MCV 91.6 fL Normal 81.0-99.0 [facility] Comment on above: Performed By: #### C MP #### [facility] [address] [place] [address] Dr. Mercy Mcgovern METAMYELOCYTE # Normal [facility] Comment on above: Performed By: #### C MP #### [facility] [address] [address] [address] Mercy Mcgovern METAMYELOCYTE % Normal [facility] Comment on above: Performed By: #### C MP #### [facility] [address] [address] [address] Mercy Mcgovern MONOM# 1.79 103/ul Critically high 0.30-0.80 [facility] Comment on above: Performed By: #### C MP #### [facility] [address] [address] [address] Mercy Mcgovern MONOM% 7.0 % Normal 1.7-12.0 [facility] Comment on above: Performed By: #### C MP #### [facility] [address] [address] [address] Mercy Mcgovern MPV 9.8 fL Normal 9.5-13.5 [facility] Comment on above: Performed By: #### C MP #### [facility] [address] [address] [address] Mercy Mcgovern MYELOCYTE # Normal [facility] Comment on above: Performed By: #### C MP #### [facility] [address] [address] [address] Mercy Mcgovern MYELOCYTE % Normal [facility] Comment on above: Performed By: #### C MP #### [facility] [address] [place] [address] Dr. Mercy Mcgovern NRBC Normal [facility] Comment on above: Performed By: #### C MP #### [facility] [address] [place] [address] Dr. Mercy Mcgovern PLT 279 103/ul Normal 150-450 [facility] Comment on above: Performed By: #### C MP #### [facility] [address] [address] [address] Mercy Mcgovern RBC 5.01 106/ul Normal 4.20-5.40 [facility] Comment on above: Performed By: #### C MP #### [facility] [address] [place] [address] Dr. Mercy Mcgovern RDW 12.8 % Normal 11.0-15.0 [facility] Comment on above: Performed By: #### C MP #### [facility] [address] [place] [address] Dr. Mercy Mcgovern SEG # 20.22 103/ul Critically high 1.40-6.50 [facility] Comment on above: Performed By: #### C MP #### [facility] [address] [address] [address] Mercy Mcgovern SEG % 79.0 % Critically high 43.0-75.0 [facility] Comment on above: Performed By: #### C MP #### [facility] [address] [place], [place] [address] Dr. Mercy Mcgovern WBC 25.6 103/ul Critically high 4.0-11.0 [facility] Comment on above: Performed By: #### C MP #### [facility] [address] [place], [place] [address] Dr. Mercy Mcgovern CRPon 02-03-2022 CRP 6.5 mg/dL Critically high <=1.0 [facility] Comment on above: Performed By: #### O BSCRN #### [facility] [address] [place], [place] [address] ABD/PELVIS WO CONon 02-03 CT ABD/PELVIS WO CON EXAMINATION: CT ABD/PELVIS WO CON HISTORY: UNSPECIFIED ABDOMINAL PAIN ; blood in stool COMPARISON: No relevant comparison available. TECHNIQUE: Axial, Coronal, and Sagittal images were created without IV contrast. Dose reduction techniques were achieved by using automated exposure control and/or adjustment of mA and/or kV according to patient size and/or use of iterative reconstruction technique. FINDINGS: LUNG BASES: No visible pulmonary or pleural disease. LIVER: Mild fatty infiltration. No enlargement, atrophy, suspicious density, or significant focal lesion. BILIARY: No dilatation or calcification. PANCREAS: No lesion, fluid collection, or abnormal duct dilatation. SPLEEN: No enlargement or focal lesion. ADRENALS: 1.2 cm low-density left adrenal nodule, nonspecific. KIDNEYS: No mass, obstruction, or calcification. BOWEL/MESENTERY: Mild compression wall thickening and slightly inflamed appearance of the descending colon. No appreciable mass, obstruction, free air, or free fluid. AORTA/VASCULAR: Moderate atherosclerotic disease. No aneurysm or dissection. RETROPERITONEUM: No mass or adenopathy. LYMPH NODES: No adenopathy. URINARY BLADDER: No visible focal wall thickening, lesion, or calculus. PELVIC ORGANS: No visible mass. Pelvic organs appropriate for patient age. ABDOMINAL WALL: No mass or hernia. BONES: No bony lesion or fracture. OTHER: Negative. IMPRESSION: 1. Mild inflammatory changes of the descending colon; colitis versus inflammatory bowel disease. No bowel obstruction. Electronically authenticated by: CLARA GARCIA Date: 2022-02-03 10:30 Normal [facility] CULTURE BLOODon 02-03-2022 Microscopic examination of blood, culture Culture Observations: NO GROWTH AT 5 DAYS. Normal [facility] Comment on above: Performed By: #### C MP #### [facility] [address] [place] [address] Dr. Mercy Mcgovern Microscopic examination of blood, culture Culture Observations: NO GROWTH AT 5 DAYS. Normal [facility] Comment on above: Performed By: #### B [id number] #### [facility] [address] [place] [address] Dr. Mercy Mcgovern CULTURE URINEon 02-03-2022 CULTURE URINE Culture Observations : MODERATE GROWTH OF MIXED GENITAL EDDIE. NO POTENTIAL PATHOGENS SEEN. Normal [facility] Comment on above: Performed By: #### U RCX #### [facility] [address] [place] [address] Dr. Mercy Mcgovern Covid-19 PCR (CVDTB)on 01-22 SARS-CoV-2 (COVID-19) RNA MARY+probe Ql (Unsp spec) Not detected Normal NOT DETECTED [facility] Comment on above: Result Comment: When diagnostic testing is negative, the possibility of a false negative should be considered in the context of a patient's recent exposures and the presence of clinical signs and symptoms consistent with SARS-CoV-2. This test is not yet approved or cleared by the [place] FDA. When there are no FDA-approved or cleared tests available, and other criteria are met, FDA can make tests available under an emergency access mechanism called an Emergency Use Authorization (EUA). The EUA for this test is supported by the [place] of Health and Human Service's declaration that circumstances exist to justify the emergency use of in vitro diagnostics for the detection and/or diagnosis of the virus that causes COVID-19. This EUA will remain in effect for the duration of the COVID-19 declaration justifying emergency of IVDs, unless it is terminated or revoked by the FDA (after which the test may no longer be used). Performed By: #### C VDTBH #### [facility] [address] [place] [address] Dr. Mercy Mcgovern ER URINE PROFILEon 2 Bilirubin Ql (U) Negative Normal NEGATIVE [facility] Comment on above: Performed By: #### C BC #### [facility] [address] [place] [address] Dr. Mercy Mcgovern Clarity (U) CLEAR Normal CLEAR [facility] Comment on above: Performed By: #### C BC #### [facility] [address] [place] [address] Dr. Mercy Mcgovern Color (U) YELLOW Normal YELLOW [facility] Comment on above: Performed By: #### C BC #### [facility] [address] [place] [address] Dr. Mercy Mcgovern ERUJUNG A micrscopic examina tion will be performed if indicated. Normal [facility] Comment on above: Performed By: #### C BC #### [facility] [address] [place] [address] Dr. Mercy Mcgovern Glucose Ql (U) >1000 Abnormal NEGATIVE [facility] Comment on above: Performed By: #### C BC #### [facility] [address] [place] [address] Dr. Mercy Mcgovern Hemoglobin Ql (U) LARGE Abnormal NEGATIVE [facility] Comment on above: Performed By: #### C BC #### [facility] [address] [place] [address] Dr. Mercy Mcgovern Ketones Ql (U) 15 mg/dl Abnormal NEGATIVE [facility] Comment on above: Performed By: #### C BC #### [facility] [address] [place] [address] Dr. Mercy Mcgovern LEUKOCYTES TRACE Abnormal NEGATIVE [facility] Comment on above: Performed By: #### C BC #### [facility] [address] [place] [address] Dr. Mercy Mcgovern Nitrite Ql (U) Negative Normal NEGATIVE [facility] Comment on above: Performed By: #### C BC #### [facility] [address] [place] [address] Dr. Mercy Mcgovern pH (U) 5.0 [pH] Normal 5-9 [facility] Comment on above: Performed By: #### C BC #### [facility] [address] [place] [address] Dr. Mercy Mcgovern SPEC GRAVITY 1.020 Normal 1.005-<=1. 025 [facility] Comment on above: Performed By: #### C BC #### [facility] [address] [place] [address] Dr. Mercy Mcgovern UA PROTEIN Negative Normal NEGATIVE/ TRACE [facility] Comment on above: Performed By: #### C BC #### [facility] [address] [place] [address] Dr. Mercy Mcgovern UR MICRO IND INDICATED Normal [facility] Comment on above: Performed By: #### C BC #### [facility] [address] [place] [address] Dr. Mercy Mcgovern Urobilinogen Qn (U) 0.2 {Loc'U}/dL Normal 0.2 - 1. 0 [facility] Comment on above: Performed By: #### C BC #### [facility] [address] [place] [address] Dr. Mercy Mcgovern HEMOGLOBIN AND HEMATOCRITon 02-03-2022 Hematocrit (Bld) [Volume fraction] 41.0 % Normal 36.0-48.0 [facility] Comment on above: Performed By: #### H GBHCT #### [facility] [address] [place] [address] Dr. Mercy Mcgovern Hemoglobin (Bld) [Mass/Vol] 13.4 g/dL Normal 12.0-16.0 [facility] Comment on above: Performed By: #### H GBHCT #### [facility] [address] [place] [address] Dr. Mercy Mcgovern LIPASEon 02-03-2022 Lipase [Catalytic activity/Vol] 79.0 U/L Normal 73.0-393.0 [facility] Comment on above: Performed By: #### C BC #### [facility] [address] [place] [address] Dr. Mercy Mcgovern OCC BLD IMMUNO SCREENon 01-22 OCCULT BLOOD Positive Abnormal NEGATIVE [facility] Comment on above: Performed By: #### O BSCRN #### [facility] [address] [address] [address] Mercy Mcgovern POINT OF CARE GLUCOSEon 01-22 Glucose [Mass/Vol] 144 mg/dL Critically high 74-106 [facility] Comment on above: Performed By: #### P OCGLUC #### [facility] [address] [address] [address] Mercy Mcgovern Glucose [Mass/Vol] 133 mg/dL Critically high 74-106 [facility] Comment on above: Performed By: #### O BSCRN #### [facility] [address] [place] [address] Dr. Mercy Mcgovern PROF 14(COMP METB)on 022 Albumin [Mass/Vol] 3.9 g/dL Normal 3.4-5.0 [facility] Comment on above: Performed By: #### O BSCRN #### [facility] [address] [place] [address] Dr. Mercy Mcgovern Albumin/Globulin [Mass ratio] 1.0 {ratio} Normal [facility] Comment on above: Performed By: #### O BSCRN #### [facility] [address] [place] [address] Dr. Mercy Mcgovern ALP [Catalytic activity/Vol] 156 U/L Critically high 46-116 [facility] Comment on above: Performed By: #### O BSCRN #### [facility] [address] [place] [address] Dr. Mercy Mcgovern ALT [Catalytic activity/Vol] 40 U/L Normal 14-59 [facility] Comment on above: Performed By: #### O BSCRN #### [facility] [address] [place] [address] Dr. Mercy Mcgovern Anion gap [Moles/Vol] 18.7 mmol/L Normal [facility] Comment on above: Performed By: #### O BSCRN #### [facility] [address] [place] [address] Dr. Mercy Mcgovern AST [Catalytic activity/Vol] 23 U/L Normal 15-37 [facility] Comment on above: Performed By: #### O BSCRN #### [facility] [address] [address] [address] Mercy Mcgovern Bilirubin [Mass/Vol] 0.4 mg/dL Normal 0.2-1.0 [facility] Comment on above: Performed By: #### O BSCRN #### [facility] [address] [address] [address] Mercy Mcgovern Calcium [Mass/Vol] 9.8 mg/dL Normal 8.5-10.1 [facility] Comment on above: Performed By: #### O BSCRN #### [facility] [address] [address] [address] Mercy Mcgovern Chloride [Moles/Vol] 101 mmol/L Normal 98-107 [facility] Comment on above: Performed By: #### O BSCRN #### [facility] [address] [address] [address] Mercy Mcgovern CO2 [Moles/Vol] 20.9 mmol/L Critically low 21.0-32.0 [facility] Comment on above: Performed By: #### O BSCRN #### [facility] [address] [address] [address] Mercy Mcgovern Creatinine [Mass/Vol] 1.76 mg/dL Critically high 0.55-1.02 [facility] Comment on above: Performed By: #### O BSCRN #### [facility] [address] [address] [address] Mercy Mcgovern EGFR-AF SOUTH AFRICAN 35 mL/min/1.73m2 Critically low >=60 [facility] Comment on above: Performed By: #### O BSCRN #### [facility] [address] [address] [address] Mercy Mcgovern EGFR-NON AF S[place]TH AFR[place] 29 mL/min/1.73m2 Critically low >=60 [facility] Comment on above: Performed By: #### O BSCRN #### [facility] [address] [address] [address] Mecry Mcgovern Globulin (S) [Mass/Vol] 3.8 g/dL Normal [facility] Comment on above: Performed By: #### O BSCRN #### [facility] [address] [address] [address] Mercy Mcgovern Glucose [Mass/Vol] 216 mg/dL Critically high 74-106 [facility] Comment on above: Performed By: #### O BSCRN #### [facility] [address] [address] [address] Mercy Mcgovern Potassium [Moles/Vol] 4.6 mmol/L Normal 3.5-5.1 [facility] Comment on above: Performed By: #### O BSCRN #### [facility] [address] [place] [address] Dr. Mercy Mcgovern Protein [Mass/Vol] 7.7 g/dL Normal 6.4-8.2 [facility] Comment on above: Performed By: #### O BSCRN #### [facility] [address] [address] [address] Mercy Mcgovern Sodium [Moles/Vol] 136 mmol/L Normal 136-145 [facility] Comment on above: Performed By: #### O BSCRN #### [facility] [address] [place] [address] Dr. Mercy Mcgovern Urea nitrogen [Mass/Vol] 32.0 mg/dL Critically high 7.0-18.0 [facility] Comment on above: Performed By: #### O BSCRN #### [facility] [address] [place] [address] Dr. Mercy Mcgovern Urea nitrogen/Creatinine [Mass ratio] 18.2 mg/mg Normal [facility] Comment on above: Performed By: #### O BSCRN #### [facility] [address] [address] [address] Mercy Mcgovern PROTIMEon 02-03-2022 INR Coag (PPP) [Relative time] 1.06 {INR} Normal [facility] Comment on above: Performed By: #### O BSCRN #### [facility] [address] [place] [address] Dr. Mercy Mcgovern INR GUIDELINES SEE BELOW Normal [facility] Comment on above: Result Comment: MODESTO RED INR: 2.0 - 3.0 CONDITIONS NOT LISTED BELOW 2.5 - 3.5 FOR PROSTHETIC HEART VALVE REPLACEMENT 2.5 - 3.5 RECURRENT THROMBOSIS Performed By: #### O BSCRN #### [facility] [address] [place] [address] Dr. Mercy Mcgovern PT Coag (PPP) [Time] 11.4 s Normal 9.0-11.6 [facility] Comment on above: Performed By: #### O BSCRN #### [facility] [address] [place] [address] Dr. Mercy Mcgovern PTTon 02-03-2022 aPTT Coag (Bld) [Time] 28.8 s Normal 22.3-36.2 [facility] Comment on above: Performed By: #### O BSCRN #### [facility] [address] [place] [address] Dr. Mercy Mcgovern [facility] mm/hr Normal <=30 [facility] Comment on above: Performed By: #### C BC #### [facility] [address] [place] [address] Dr. Mercy Mcgovern TYPE AND SCREENon 02-03-2022 TYPE AND SCREEN Negative Normal [facility] Comment on above: Performed By: #### C MP #### [facility] [address] [place] [address] Dr. Mercy Mcgovern URINE MICROSCOPIC ONLYon BACTERIA SMALL Abnormal NONE SEEN [facility] Comment on above: Performed By: #### C BC #### [facility] [address] [place] [address] Dr. Mercy Mcgovern Bacteria identified Cx Nom (U) INDICATED Normal [facility] Comment on above: Performed By: #### C BC #### [facility] [address] [place] [address] Dr. Mercy Mcgovern CAST NONE SEEN Normal NONE SEEN [facility] Comment on above: Performed By: #### C BC #### [facility] [address] [place] [address] Dr. Mercy Mcgovern Crystals LM Nom (Urine sed) NONE SEEN Normal NONE SEEN [facility] Comment on above: Performed By: #### C BC #### [facility] [address] [place] [address] Dr. Mercy Mcgovern Epithelial cells LM Ql (Urine sed) MODERATE Abnormal NONE SEEN /RARE [facility] Comment on above: Performed By: #### C BC #### [facility] [address] [place] [address] Dr. Mercy Mcgovern MUCOUS NONE SEEN Normal NONE SEEN [facility] Comment on above: Performed By: #### C BC #### [facility] [address] [place] [address] Dr. Mercy Mcgovern RBC 5-10 Abnormal 0-2 [facility] Comment on above: Performed By: #### C BC #### [facility] [address] [place] [address] Dr. Mercy Mcgovern WBC 5-10 Abnormal NONE SEEN [facility] Comment on above: Performed By: #### C BC #### [facility] [address] [place] [address] Dr. Mercy Mcgovern Vital Signs Date Time Vital Sign Value Performing Clinician Facility 10-04-2024 08:58-0500 Body height 170.18 cm Ciera Les [employer] Work Phone: [facility] 10-04-2024 08:58-0500 Body mass index (BMI) [Ratio] 23.3 kg/m2 [employer] Work Phone: [facility] 10-04-2024 08:58-0500 Body weight 67.58 kg Cieratydyb [employer] Work Phone: [facility] 10-04-2024 08:58-0500 Diastolic blood pressure 76 mm[Hg] [employer] Work Phone: [facility] 10-04-2024 08:58-0500 Heart rate 85 /min [employer] Work Phone: [facility] 10-04-2024 08:58-0500 Systolic blood pressure 122 mm[Hg] Ciera Saldana APRN Work Phone: [facility] 09-20-2024 11:09-0500 Blood Pressure Location CHLOÉ PIZANO [facility] 09-20-2024 11:09-0500 Body temperature 98.6 [degF] CHLOÉ JERICA [facility] 09-20-2024 11:09-0500 Diastolic blood pressure 73 mm[Hg] CHLOÉ JERICA [facility] 09-20-2024 11:09-0500 Heart rate 86 /min CHLOÉ JERICA [facility] 09-20-2024 11:09-0500 Respiratory rate 18 /min CHLOÉ JERICA [facility] 09-20-2024 11:09-0500 Systolic blood pressure 135 mm[Hg] CHLOÉ JERICA [facility] 08-25-2024 10:14-0500 Body height 170.2 cm Dominic Ballard ACTIVITIES SPECIALIST Work Phone: [facility] 08-25-2024 10:14-0500 Body mass index (BMI) [Ratio] 23.78 kg/m2 Dominic Ballard ACTIVITIES SPECIALIST Work Phone: [facility] 08-25-2024 10:14-0500 Body weight 68.86 kg Dominic Ballard ACTIVITIES SPECIALIST Work Phone: [facility] 08-25-2024 10:14-0500 Diastolic blood pressure 80 mm[Hg] Dominic Ballard ACTIVITIES SPECIALIST Work Phone: [facility] 08-25-2024 10:14-0500 Heart rate 73 /min Dominic Haestephanieenburg ACTIVITIES SPECIALIST Work Phone: [facility] 08-25-2024 10:14-0500 Systolic blood pressure 134 mm[Hg] Dominic Haestephanieenburg ACTIVITIES SPECIALIST Work Phone: [facility] 07-28-2024 10:08-0500 Body height 170.2 cm Domniic Haestephanieenburg ACTIVITIES SPECIALIST Work Phone: [facility] 07-28-2024 10:08-0500 Body mass index (BMI) [Ratio] 23.74 kg/m2 Dominic Haestephanieenburg ACTIVITIES SPECIALIST Work Phone: [facility] 07-28-2024 10:08-0500 Body weight 68.77 kg Dominic Yulienburg ACTIVITIES SPECIALIST Work Phone: [facility] 07-28-2024 10:08-0500 Diastolic blood pressure 70 mm[Hg] Dominic Haestephanieenburg ACTIVITIES SPECIALIST Work Phone: [facility] 07-28-2024 10:08-0500 Heart rate 71 /min Dominic Haestephanieenburg ACTIVITIES SPECIALIST Work Phone: [facility] 07-28-2024 10:08-0500 Systolic blood pressure 134 mm[Hg] Dominic Yulienburg ACTIVITIES SPECIALIST Work Phone: [facility] 07-22-2024 16:38-0500 Body height 170.18 cm Ciera Les [employer] Work Phone: [facility] 07-22-2024 16:38-0500 Body mass index (BMI) [Ratio] 23.3 kg/m2 Ciera Les [employer] Work Phone: [facility] 07-22-2024 16:38-0500 Body temperature 97.2 [degF] Ciera Les [employer] Work Phone: [facility] 07-22-2024 16:38-0500 Body weight 67.69 kg Ciera Les [employer] Work Phone: [facility] 07-22-2024 16:38-0500 Diastolic blood pressure 72 mm[Hg] Ciera Les [employer] Work Phone: [facility] 07-22-2024 16:38-0500 Heart rate 85 /min Ciera Les [employer] Work Phone: [facility] 07-22-2024 16:38-0500 Respiratory rate 18 /min Ciera Les [employer] Work Phone: [facility] 07-22-2024 16:38-0500 SaO2% (BldA) [Mass fraction] 99 % Ciera Les [employer] Work Phone: [facility] 07-22-2024 16:38-0500 Systolic blood pressure 146 mm[Hg] Ciera Les [employer] Work Phone: [facility] 07-07-2024 14:32-0500 Body mass index (BMI) [Ratio] 24.12 kg/m2 Xiao Mascorro ACTIVITIES SPECIALIST Work Phone: [facility] 07-07-2024 14:32-0500 Body temperature 97 [degF] Xiao Mascorro ACTIVITIES SPECIALIST Work Phone: [facility] 07-07-2024 14:32-0500 Body weight 69.85 kg Xiao Mascorro ACTIVITIES SPECIALIST Work Phone: [facility] 07-07-2024 14:32-0500 Diastolic blood pressure 58 mm[Hg] Xiao Mascorro ACTIVITIES SPECIALIST Work Phone: [facility] 07-07-2024 14:32-0500 Heart rate 83 /min Xiao Mascorro ACTIVITIES SPECIALIST Work Phone: [facility] 07-07-2024 14:32-0500 SaO2% (BldA) [Mass fraction] 99 % Xiao Mascorro ACTIVITIES SPECIALIST Work Phone: [facility] 07-07-2024 14:32-0500 Systolic blood pressure 118 mm[Hg] Xiao Mascorro ACTIVITIES SPECIALIST Work Phone: [facility] 06-22-2024 09:53-0400 Body height 170.2 cm Mahamed Acharya DO Work Phone: [facility] 06-22-2024 09:53-0400 Body mass index (BMI) [Ratio] 23.93 kg/m2 Mahamed Acharya DO Work Phone: [facility] 06-22-2024 09:53-0400 Body weight 69.31 kg Mahamed Acharya DO Work Phone: [facility] 06-22-2024 09:53-0400 Diastolic blood pressure 82 mm[Hg] Mahamed Acharya DO Work Phone: [facility] 06-22-2024 09:53-0400 Heart rate 62 /min Mahamed Acharya DO Work Phone: [facility] 06-22-2024 09:53-0400 Systolic blood pressure 150 mm[Hg] Mahamed Acharya DO Work Phone: [facility] 06-17-2024 09:10-0400 Body height 170.2 cm Zahira Lundberg ACTIVITIES SPECIALIST Work Phone: [facility] 06-17-2024 09:10-0400 Body mass index (BMI) [Ratio] 24.25 kg/m2 Zahira Lundberg ACTIVITIES SPECIALIST Work Phone: [facility] 06-17-2024 09:10-0400 Body weight 70.22 kg Zahira Lundberg ACTIVITIES SPECIALIST Work Phone: [facility] 06-17-2024 09:10-0400 Diastolic blood pressure 80 mm[Hg] Zahira Lundberg ACTIVITIES SPECIALIST Work Phone: [facility] 06-17-2024 09:10-0400 Heart rate 73 /min Zahira Lundberg ACTIVITIES SPECIALIST Work Phone: [facility] 06-17-2024 09:10-0400 SaO2% (BldA) [Mass fraction] 97 % Zahira Lundberg ACTIVITIES SPECIALIST Work Phone: [facility] 06-17-2024 09:10-0400 Systolic blood pressure 130 mm[Hg] Zahira Lundberg ACTIVITIES SPECIALIST Work Phone: [facility] 06-03-2024 15:30-0400 Body height 170.2 cm Mateo Hunter ACTIVITIES SPECIALIST Work Phone: [facility] 06-03-2024 15:30-0400 Body mass index (BMI) [Ratio] 24.59 kg/m2 Mateo Hunter ACTIVITIES SPECIALIST Work Phone: [facility] 06-03-2024 15:30-0400 Body temperature 96.8 [degF] Mateo Hunter ACTIVITIES SPECIALIST Work Phone: [facility] 06-03-2024 15:30-0400 Body weight 71.22 kg Mateo Hunter ACTIVITIES SPECIALIST Work Phone: [facility] 06-03-2024 15:30-0400 Diastolic blood pressure 76 mm[Hg] Mateo Hunter ACTIVITIES SPECIALIST Work Phone: [facility] 06-03-2024 15:30-0400 Heart rate 77 /min Mateo Hunter ACTIVITIES SPECIALIST Work Phone: [facility] 06-03-2024 15:30-0400 SaO2% (BldA) [Mass fraction] 99 % Mateo Hunter ACTIVITIES SPECIALIST Work Phone: [facility] 06-03-2024 15:30-0400 Systolic blood pressure 128 mm[Hg] Mateo Hunter ACTIVITIES SPECIALIST Work Phone: [facility] 12-17-2023 10:21-0400 Body height 170.2 cm Mahamed Acharya DO Work Phone: [facility] 12-17-2023 10:21-0400 Body mass index (BMI) [Ratio] 23.65 kg/m2 Mahamed Acharya DO Work Phone: [facility] 12-17-2023 10:21-0400 Body weight 68.49 kg Mahamed Acharya DO Work Phone: [facility] 12-17-2023 10:21-0400 Diastolic blood pressure 76 mm[Hg] Mahamed Acharya DO Work Phone: [facility] 12-17-2023 10:21-0400 Heart rate 72 /min Mahamed Acharya DO Work Phone: [facility] 12-17-2023 10:21-0400 Systolic blood pressure 124 mm[Hg] Mahamed Acharya DO Work Phone: [facility] 11-24-2023 09:09-0400 Blood Pressure Location CHLOÉ PIZANO [facility] 11-24-2023 09:09-0400 Diastolic blood pressure 60 mm[Hg] CHLOÉ JERICA [facility] 11-24-2023 09:09-0400 Heart rate 68 /min CHLOÉ JERICA [facility] 11-24-2023 09:09-0400 Respiratory rate 18 /min CHLOÉ JERICA [facility] 11-24-2023 09:09-0400 Systolic blood pressure 135 mm[Hg] CHLOÉ JERICA [facility] 07-02-2023 22:00-0500 Body temperature 97.1 [degF] HARISH Meneses Work Phone: [facility] 07-02-2023 22:00-0500 Diastolic blood pressure 62 mm[Hg] PA-C Joe Menesse Work Phone: [facility] 07-02-2023 22:00-0500 Heart rate 90 /min PA-C Joe Meneses Work Phone: [facility] 07-02-2023 22:00-0500 Respiratory rate 18 /min PA-C Joe Meneses Work Phone: [facility] 07-02-2023 22:00-0500 SaO2% (BldA) [Mass fraction] 99 % MAMADOUGustavoRobert Joe Meneses Work Phone: [facility] 07-02-2023 22:00-0500 Systolic blood pressure 134 mm[Hg] HARISH Meneses Work Phone: [facility] 07-02-2023 17:55-0500 Body height 170.18 cm MAMADOUGustavoRobert Diaz Meneses Work Phone: [facility] 07-02-2023 17:55-0500 Body weight 63.3 kg MAMADOUGustavoRobert Joe Gideon Work Phone: [facility] 06-18-2023 10:20-0400 Body height 170.18 cm Chloé Shea Other [employer] Other 06-18-2023 10:20-0400 Body mass index (BMI) [Ratio] 20.83 kg/m2 Chloé Shea Other [employer] Other 06-18-2023 10:20-0400 Body temperature 97.2 [degF] Chloé Shea Other [employer] Other 06-18-2023 10:20-0400 Body weight 60.33 kg Chloé Shea Other [employer] Other 06-18-2023 10:20-0400 Diastolic blood pressure 54 mm[Hg] Chloé Shea Other [employer] Other 06-18-2023 10:20-0400 Respiratory rate 18 /min Chloé Shea Other [employer] Other 06-18-2023 10:20-0400 SaO2% (BldA) [Mass fraction] 97 % Chloé Sabapeyman Other [employer] Other 06-18-2023 10:20-0400 Systolic blood pressure 103 mm[Hg] Chloé Mosesdelbert Other [employer] Other 05-08-2023 09:32-0400 Body height 170.18 cm Bonita G Antolin Work Phone: [facility] [employer] DO Work Phone: 05-08-2023 09:32-0400 Body mass index (BMI) [Ratio] 21.77 kg/m2 Bonita G Antolin Work Phone: [facility] [employer] DO Work Phone: 05-08-2023 09:32-0400 Body surface area Derived from formula 1.73 m2 Bonita G Antolin Work Phone: [facility] [employer] 250 DO Work Phone: 05-08-2023 09:32-0400 Body weight 63.05 kg Bonita G Antolin Work Phone: [facility] [employer] 250 DO Work Phone: 05-08-2023 09:32-0400 Diastolic blood pressure 70 mm[Hg] Bonita G Antolin Work Phone: [facility] [employer] DO Work Phone: 05-08-2023 09:32-0400 Heart rate 84 /min Bonita G Antolin Work Phone: [facility] [employer] 250 DO Work Phone: 05-08-2023 09:32-0400 Systolic blood pressure 116 mm[Hg] Bonita G Antolin Work Phone: [facility] [employer] DO Work Phone: 04-30-2023 12:00-0400 Body temperature 98.2 [degF] PHYSICIAN NO [facility] 04-30-2023 12:00-0400 Diastolic blood pressure 83 mm[Hg] PHYSICIAN NO [facility] 04-30-2023 12:00-0400 Heart rate 62 /min PHYSICIAN NO [facility] 04-30-2023 12:00-0400 Respiratory rate 16 /min PHYSICIAN NO [facility] 04-30-2023 12:00-0400 SaO2% (BldA) [Mass fraction] 98 % PHYSICIAN NO [facility] 04-30-2023 12:00-0400 Systolic blood pressure 130 mm[Hg] PHYSICIAN NO [facility] 04-30-2023 05:29-0400 Body weight 65.4 kg PHYSICIAN NO [facility] 04-28-2023 22:41-0400 Body height 170.18 cm PHYSICIAN NO [facility] 04-28-2023 22:00-0400 Diastolic blood pressure 55 mm[Hg] PHYSICIAN NO [facility] 04-28-2023 22:00-0400 Heart rate 77 /min PHYSICIAN NO [facility] 04-28-2023 22:00-0400 Respiratory rate 18 /min PHYSICIAN NO [facility] 04-28-2023 22:00-0400 SaO2% (BldA) [Mass fraction] 100 % PHYSICIAN NO [facility] 04-28-2023 22:00-0400 Systolic blood pressure 112 mm[Hg] PHYSICIAN NO [facility] 04-28-2023 18:47-0400 Body height 170.18 cm PHYSICIAN NO [facility] 04-28-2023 18:47-0400 Body temperature 98.4 [degF] PHYSICIAN NO [facility] 04-28-2023 18:47-0400 Body weight 68.1 kg PHYSICIAN NO [facility] 03-06-2023 13:20-0400 Body height 170.18 cm Kathya Chang Other [employer] Other 03-06-2023 13:20-0400 Body mass index (BMI) [Ratio] 21.45 kg/m2 Kathya Chang Other [employer] Other 03-06-2023 13:20-0400 Body temperature 97.2 [degF] Kathya Chang Other [employer] Other 03-06-2023 13:20-0400 Body weight 62.14 kg Kathya Chang Other [employer] Other 03-06-2023 13:20-0400 Diastolic blood pressure 79 mm[Hg] Kathya Chang Other [employer] Other 03-06-2023 13:20-0400 Respiratory rate 18 /min Kathya Chang Other [employer] Other 03-06-2023 13:20-0400 SaO2% (BldA) [Mass fraction] 98 % Kathya Chang Other [employer] Other 03-06-2023 13:20-0400 Systolic blood pressure 145 mm[Hg] Kathya Chang Other [employer] Other 09-07-2022 10:40-0500 Body height 170.18 cm Maria Esther Ashby Other [employer] Other 09-07-2022 10:40-0500 Body mass index (BMI) [Ratio] 22.39 kg/m2 Maria Esther Ashby Other [employer] Other 09-07-2022 10:40-0500 Body temperature 97.1 [degF] Maria Esther Ashby Other [employer] Other 09-07-2022 10:40-0500 Body weight 64.86 kg Maria Esther Ashby Other [employer] Other 09-07-2022 10:40-0500 Respiratory rate 18 /min Maria Esther Ashby Other [employer] Other 09-07-2022 10:40-0500 SaO2% (BldA) [Mass fraction] 98 % Maria Esther Ashby Other [employer] Other 05-06-2022 17:20-0400 Body height 170.18 cm Maria Esther Ashby Other [employer] Other 05-06-2022 17:20-0400 Body mass index (BMI) [Ratio] 23.65 kg/m2 Maria Esther Ashby Other [employer] Other 05-06-2022 17:20-0400 Body temperature 97.1 [degF] Maria Esther Ashby Other [employer] Other 05-06-2022 17:20-0400 Body weight 68.49 kg Maria Esther Ashby Other [employer] Other 05-06-2022 17:20-0400 Respiratory rate 18 /min Maria Esther Ashby Other [employer] Other 05-06-2022 17:20-0400 SaO2% (BldA) [Mass fraction] 97 % Maria Esther Ashby Other [employer] Other 04-19-2022 10:10-0400 Body height 170.18 cm Janet Acevedo Other [employer] Other 04-19-2022 10:10-0400 Body mass index (BMI) [Ratio] 23.74 kg/m2 Janet Acevedo Other [employer] Other 04-19-2022 10:10-0400 Body weight 68.77 kg Janet Acevedo Other [employer] Other 04-19-2022 10:10-0400 Diastolic blood pressure 78 mm[Hg] Janet Acevedo Other [employer] Other 04-19-2022 10:10-0400 Respiratory rate 18 /min Janet Acevedo Other [employer] Other 04-19-2022 10:10-0400 SaO2% (BldA) [Mass fraction] 100 % Janet Acevedo Other [employer] Other 04-19-2022 10:10-0400 Systolic blood pressure 123 mm[Hg] Janet Acevedo Other [employer] Other Encounters Encounter Date Encounter Type Care Provider Facility Start: 10-04-2024 Patient encounter status Amjerrell dixon Les VALLEJO Work Phone: [facility] Start: 10-04-2024 End: 10-04-2024 ambulatory NON STAFF [facility] Work Phone: Start: 10-04-2024 End: 10-04-2024 Encounter for general adult medical examination without abnormal findings Ciera Saldana APRN Work Phone: [facility] Start: 10-04-2024 End: 10-04-2024 Patient encounter procedure Cierachente Saldana APRN Work Phone: [facility] Work Phone: Start: 09-20-2024 End: 09-20-2024 ambulatory PA-C CHLOÉ PIZANO Facility:[facility] Start: 09-20-2024 End: 09-20-2024 Lab Drop off CHLOÉ PIZANO [facility] Start: 09-20-2024 End: 09-20-2024 ambulatory PA-C CHLOÉ PIZANO Facility:[facility] Start: 09-20-2024 End: 09-20-2024 Patient encounter procedure CHLOÉ PIZANO [facility] Start: 08-25-2024 End: 08-25-2024 Bamboo flowsheet Dominic Ballard ACTIVITIES SPECIALIST Work Phone: [facility] Start: 08-25-2024 End: 08-25-2024 Bamboo flowsheet Dominic A Haestephanieenburg ACTIVITIES SPECIALIST Work Phone: [facility] Start: 08-25-2024 End: 08-25-2024 Office outpatient visit 25 minutes Dominic Ballard ACTIVITIES SPECIALIST Work Phone: [facility] Comment on above: Primary hypertension (CMS/HCC) (Primary Dx); 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); ALDAIR (generalized anxiety disorder) (CMS/HCC); Type 2 diabetes mellitus with diabetic cataract (CMS/HCC) Start: 08-25-2024 End: 08-25-2024 ambulatory DOMINIC A NELLIE Not Available Start: 07-31-2024 End: 08-15-2024 External Result Encounter Zahira Lundberg ACTIVITIES SPECIALIST Work Phone: [facility] Unsolicited Start: 07-31-2024 End: 08-15-2024 External Result Encounter Zahira Lundberg ACTIVITIES SPECIALIST Work Phone: [facility] Unsolicited Start: 07-28-2024 End: 07-28-2024 Bamboo flowsheet Dominic Ballard ACTIVITIES SPECIALIST Work Phone: [facility] Start: 07-28-2024 End: 07-28-2024 Bamboo flowsheet Dominic Ballard ACTIVITIES SPECIALIST Work Phone: [facility] Start: 07-28-2024 End: 07-28-2024 Office outpatient visit 25 minutes Dominic Ballard ACTIVITIES SPECIALIST Work Phone: [facility] Comment on above: Mixed hyperlipidemia (CMS/HCC) (Primary Dx); Recurrent major depressive disorder, in partial remission (HCC) (CMS/HCC); Screening mammogram for breast cancer; ALDAIR (generalized anxiety disorder) (CMS/HCC); Recurrent UTI; Iron deficiency anemia, unspecified iron deficiency anemia type Start: 07-28-2024 End: 07-28-2024 ambulatory DOMINIC BALLARD Not Available Start: 07-22-2024 End: 07-22-2024 ambulatory Ciera Saldana Facility:[facility] Start: 07-22-2024 End: 07-22-2024 Departed Referred Cierachente Johnsonkris VALLEJO Work Phone: [facility] [place] Work Phone: Start: 07-22-2024 End: 07-22-2024 Patient encounter procedure Ciear Saldana APRN Work Phone: [facility] Work Phone: Start: 07-07-2024 End: 07-07-2024 ambulatory XIAO MASCORRO Not Available Start: 07-07-2024 End: 07-07-2024 Office outpatient visit 25 minutes Xiao Mascorro ACTIVITIES SPECIALIST Work Phone: [facility] Comment on above: Acute cystitis witho ut hematuria (Primary Dx); Dysuria Start: 06-22-2024 End: 06-22-2024 Office outpatient visit 15 minutes Mahamed Acharya DO Work Phone: [facility] Comment on above: 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; S/P right coronary artery (RCA) stent placement; Primary hypertension; Mixed hyperlipidemia; Type 2 diabetes mellitus with other diabetic kidney complication; BMI 23.0-23.9, adult; Smoker; [place] (myocardial infarction) Start: 06-22-2024 End: 06-22-2024 ambulatory [facility] Start: 06-17-2024 End: 06-17-2024 Bamboo flowsheet Zahira Lundberg ACTIVITIES SPECIALIST Work Phone: [facility] Start: 06-17-2024 End: 06-17-2024 Bamboo flowsheet Zahira Lundberg ACTIVITIES SPECIALIST Work Phone: [facility] Start: 06-17-2024 End: 06-17-2024 ambulatory ZAHIRA LUNDBERG Not Available Start: 06-17-2024 End: 06-17-2024 Office outpatient visit 25 minutes Zahira Lundberg ACTIVITIES SPECIALIST Work Phone: [facility] Comment on above: Mixed hyperlipidemia (CMS/HCC) (Primary Dx); Primary hypertension (CMS/HCC); 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); Iron deficiency anemia, unspecified iron deficiency anemia type; Recurrent major depressive disorder, in partial remission (HCC) (CMS/HCC); Type 2 diabetes mellitus with hyperglycemia, without long-term current use of insulin (CMS/HCC); 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); Primary hypertension (CMS/HCC) Start: 06-03-2024 End: 06-03-2024 ambulatory MATEO HUNTER Not Available Start: 06-03-2024 End: 06-03-2024 Office outpatient visit 25 minutes Mateo Hunter ACTIVITIES SPECIALIST Work Phone: [facility] Comment on above: Acute cystitis witho ut hematuria (Primary Dx); Dysuria Start: 06-03-2024 End: 06-03-2024 Bamboo flowsheet Mateo Hunter ACTIVITIES SPECIALIST Work Phone: [facility] Start: 06-03-2024 End: 06-03-2024 Bamboo flowsheet Mateo Hunter ACTIVITIES SPECIALIST Work Phone: [facility] Start: 05-02-2024 End: 05-02-2024 ambulatory Joeolayinka CARTAGENA Facility:[facility] Start: 05-02-2024 End: 05-02-2024 Patient encounter procedure Joe CARTAGENA [facility] Start: 01-15-2024 End: 01-15-2024 ambulatory DOMINIC WELSHENJOHAN Not Available Start: 2023 End: 2023 ambulatory Joeolayinka CARTAGENA Facility:[facility] Start: 2023 End: 2023 Patient encounter procedure Joe CARTAGENA [facility] Start: 12-17-2023 End: 12-17-2023 Office outpatient visit 15 minutes [facility] Work Phone: [facility] Comment on above: 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; Primary hypertension; Mixed hyperlipidemia; S/P right coronary artery (RCA) stent placement; Type 2 diabetes mellitus with other diabetic kidney complication (Multi); [place] (myocardial infarction); BMI 23.0-23.9, adult; Former smoker Start: 12-17-2023 End: 12-17-2023 ambulatory [facility] Start: 12-15-2023 End: 12-15-2023 ambulatory DOMINIC BALLARD Not Available Start: 11-24-2023 End: 11-24-2023 ambulatory BONITASHAKEEL SANTOS Facility:[facility] Start: 11-24-2023 End: 11-24-2023 Patient encounter procedure CHLOÉ PIZANO [facility] Start: 09-15-2023 End: 09-15-2023 ambulatory BONITA SANTOS Not Available Start: 07-02-2023 End: 07-02-2023 Emergency department patient visit HARISH Meneses Work Phone: [facility] Work Phone: Start: 06-18-2023 End: 06-18-2023 ambulatory Chloé Shea Other [facility] Other Start: 06-18-2023 Office outpatient vi sit 15 minutes Chloé Shea [facility] Start: 06-18-2023 End: 06-18-2023 Departed Referred HARISH Meneses Work Phone: [facility] [place] Work Phone: Start: 05-08-[address] Mahamed Acharya Facility: Start: 05-08-2023 Patient encounter procedure Bonita Santos Work Phone: [facility] 250 DO Work Phone: Start: 05-08-2023 Transitional care jyothi teixeira srvc 7 day discharge Bonita Santos Work Phone: [facility] 250 DO Work Phone: Start: 04-30-[address] Mahamed Acharya Facility:[id number] Start: 04-29-2023 End: 04-30-2023 Evaluation and management of inpatient PHYSICIAN NO [facility] [employer] Work Phone: Start: 04-29-[address] Mahamed Acharya Facility:[facility] Start: 04-29-[address] Mahamed Acharya [facility] ility:[id number] Start: 04-28-2023 Evaluation and management of inpatient PHYSICIAN NO [facility] [employer] Work Phone: Start: 04-21-2023 Telephone encounter Jose Eduardo bauman MD Work Phone: Cardiology Comment on above: Received Outside Med ical Records Start: 03-08-2023 End: 03-08-2023 ambulatory Kathya Chang Other [employer] Other Start: 03-08-2023 Telephone encounter Kathya Chang [facility] [address] Start: 03-06-2023 Office outpatient vi sit 15 minutes Kathya Chang [facility] Start: 03-06-2023 End: 03-06-2023 ambulatory [employer] Kathya Chang Work Phone: [facility] Work Phone: Start: 03-06-2023 End: 03-06-2023 Departed Referred [employer] Kathya Chang Work Phone: [facility] [place] Work Phone: Start: 01-20-2023 End: 01-21-2023 ambulatory NARENDRANATH LAKSHMIPATHY . Facility:[facility] Start: 12-25-2022 End: 12-26-2022 ambulatory NARENDRANATH LAKSHMIPATHY . Facility:[facility] Start: 12-18-2022 End: 12-19-2022 ambulatory NARENDRANATH LAKSHMIPATHY . Facility:[facility] Start: 12-05-2022 End: 01-09-2023 ambulatory CHRISTIE INTERIANO Facility:[facility] Start: 11-26-[address] DOCTOR FERREIRA Facility :[facility] Start: 11-03-2022 End: 11-04-2022 ambulatory Bonita Ena Santos DO Facility:[facility] Start: 10-17-2022 End: 10-18-[address] DOCTOR FERREIRA Facility:[facility] Start: 10-09-2022 End: 10-10-2022 ambulatory Bonita Ena Santos DO Facility:[facility] Start: 10-07-2022 End: 10-08-[address] DOCTOR FERREIRA Facility:[facility] Start: 09-23-2022 End: 09-24-[address] DOCTOR FERREIRA Facility:[facility] Start: 09-11-2022 End: 09-12-2022 ambulatory Bonita Eangrisel Santos DO Facility:[facility] Start: 09-07-2022 Office outpatient vi sit 15 minutes Maria Esther Ashby [facility] Start: 09-07-2022 End: 09-07-2022 ambulatory METAL CUT OFF SAW TENDER-C Maria Esther Ashby Work Phone: [facility] Work Phone: Start: 09-07-2022 End: 09-07-2022 Departed Referred METAL CUT OFF SAW TENDER-C Maria Esther Ashby Work Phone: [facility] [place] Work Phone: Start: 09-02-2022 End: 09-03-[address] JORGE GOFF . Facility:[facility] Start: 07-29-2022 End: 07-30-2022 ambulatory Tommy Reis DPM Facility:[facility] Start: 07-03-2022 End: 07-04-2022 ambulatory RAJNI QUICK Facility:[facility] Start: 05-06-2022 End: 05-06-2022 ambulatory Maria Esther Ashby Other [employer] Other Start: 05-06-2022 Office outpatient vi sit 15 minutes Maria Esther Isma [facility] Start: 04-19-2022 End: 04-19-2022 ambulatory Janet Acevedo Other [employer] Other Start: 04-19-2022 Office outpatient vi sit 15 minutes Janet Acevedo [facility] Start: 02-03-2022 End: 02-05-2022 Evaluation and management of inpatient SHAIKH Marcus VALDES Facility:[facility] Procedures Date Procedure Procedure Detail Performing Clinician Start: 07-31-2024 Blood occult peroxid ase actv qual feces 1 sean Lundberg ACTIVITIES SPECIALIST Work Phone: Start: 07-22-2024 Urine culture Ciera Gr ob [employer] Work Phone: Start: 07-07-2024 Urnls dip stick/tabl et rgnt auto w/o microscopy Patrice Leonard DO Work Phone: Start: 06-03-2024 URINARY TRACT INFECT ION (HTRX) Mateo Hunter ACTIVITIES SPECIALIST Work Phone: Start: 06-03-2024 Urnls dip stick/tabl et rgnt auto w/o microscopy Mateo Hunter ACTIVITIES SPECIALIST Work Phone: Start: 12-17-2023 Alanine aminotransfe rase [Enzymatic activity/volume] in Serum or Plasma MAHAMED ACHARYA Start: 12-17-2023 Aspartate aminotrans ferase [Enzymatic activity/volume] in Serum or Plasma MAHAMED ACHARYA Start: 12-17-2023 Lipid panel MAHAMED GLADYS BAUMANDON Start: 07-02-2023 CT of head without contrast HARISH Meneses Work Phone: Start: 07-02-2023 Plain chest X-ray HARISH Meneses Work Phone: Start: 07-02-2023 SARS-CoV-2, Influenz a & RSV (PCR) HARISH Meneses Work Phone: Start: 06-18-2023 Urine culture HARISH Meneses Work Phone: Start: 05-04-2023 History of placement of stent for coronary artery disease S/P right coronary artery (RCA) stent placement Mahamed Acharya DO Work Phone: Start: 04-29-2023 CL LHC & COR Angio PHYS ICIAN NO FAMILY Start: 04-29-2023 CL Stent 1st Vessel RCA XAVIER PHYSICIAN NO FAMILY Start: 04-28-2023 Plain chest X-ray PHYSI DANIELLE NO FAMILY Start: 04-28-2023 Urine culture PHYSICIAN NO FAMILY Start: 04-24-2023 Carotid stent (physi santhosh object) CHLOÉ PIZANO Start: 03-06-2023 Urine culture PHYSICIAN NO FAMILY Start: 02-04-2022 Extraction of Descen ding Colon, Via Natural or Artificial Opening Endoscopic, Diagnostic CHRISTIE INTERIANO Start: 02-04-2022 Extraction of Stomac h, Via Natural or Artificial Opening Endoscopic, Diagnostic CHRISTIE INTERIANO Start: 01-22-2022 Colonoscopy Mateo arauz ACTIVITIES SPECIALIST Work Phone: Start: 01-22-2022 Colonoscopy CHLOÉ WONG Start: 08-24-2021 Total colonoscopy Bonita Santos Work Phone: Comment on above: [employer]; Start: 03-21-2021 Mammography Mahamed kimbrough DO Work Phone: Start: 05-04-2017 Lumpectomy of breast IVONNE PIZANO Ankle region structu re (body structure) CHLOÉ PIZANO Cardiac ablation sys tem (physical object) CHLOÉ PIZANO Dental surgical procedure Re rosio Santos Work Phone: History of placement of stent for coronary artery disease S/P right coronary artery (RCA) stent placement Bonitashakeel Santos Work Phone: History of placement of stent for coronary artery disease S/P right coronary artery (RCA) stent placement Mahamed Acharya Work Phone: History of placement of stent for coronary artery disease S/P right coronary artery (RCA) stent placement Mahamed Acharya Work Phone: Operative procedure on ankle Bonita Santos Work Phone: Operative procedure on knee Bonita Santos Work Phone: Percutaneous translu riccardo coronary angioplasty Bonita Santos Work Phone: Plan of Treatment Date Care Activity Detail Author Start: 01-23-2032 Screening for malignant neoplasm of colon [facility] Start: 07-31-2025 Screening for malignant neoplasm of colon [facility] Start: 06-22-2025 End: 06-22-2025 Patient encounter procedure 06/22/2025 10:20 AM EDT Office Visit [facility] [address] [facility] [address] [place] [address] Mahamed Acharya DO [address] [facility] [address] [address] [facility] Start: 06-17-2025 Urine screening for protein Diabetes: Urine Protein Screening [facility] Start: 05-24-2025 Influenza vaccination Influenza Vaccine (#1) [facility] Comment on above: Postponed from 04/24/2024 (Patient Refus ed) Start: 04-20-2025 Glaucoma screening Diabetes: Retinopathy Screening [facility] Start: 01-14-2025 Urine screening for protein Diabetes: Urine Protein Screening [facility] Start: 12-14-2024 Urine screening for protein Diabetes: Urine Protein Screening [facility] Start: 10-10-2024 ambulatory Ambulatory Facility:[facility] Start: 10-07-2024 ambulatory Ambulatory Facility:[facility] Start: 09-17-2024 Hemoglobin A1c measurement Diabetes: Hemoglobin A1C [facility] Start: 08-25-2024 End: 08-25-2024 Patient encounter procedure [facility] Comment on above: Arrived Start: 07-28-2024 End: 09-28-2025 DBT Breast - bilateral screening Bilateral screening mammogram with tomosynthesis Imaging Routine Screening mammogram for breast cancer Expected: 07/28/2024, Expires: 09/28/2025 [facility] Comment on above: Expected: 07/28/2024, Expires: Start: 07-28-2024 End: 07-28-2025 Lipid 1996 panel - Serum or Plasma Lipid panel Lab Routine Mixed hyperlipidemia (CMS/HCC) Expected: 07/28/2024 (Approximate), Expires: 07/28/2025 [facility] Work Phone: Comment on above: Expected: 07/28/2024 (Approximate), Expi res: 07/28/2025 Start: 07-28-2024 End: 07-28-2024 Patient encounter procedure [facility] Comment on above: Arrived Start: 06-22-2024 End: 06-22-2025 Alanine aminotransferase [Enzymatic activity/volume] in Serum or Plasma by With P-5'-P Alanine Aminotransferase Lab Routine 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 S/P right coronary artery (RCA) stent placement Mixed hyperlipidemia Expected: 06/22/2024, Expires: 06/22/2025 [facility] Work Phone: Comment on above: Expected: 06/22/2024, Expires: Start: 06-22-2024 End: 06-22-2025 Aspartate aminotransferase [Enzymatic activity/volume] in Serum or Plasma by With P-5'-P Aspartate Aminotransferase Lab Routine 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 S/P right coronary artery (RCA) stent placement Mixed hyperlipidemia Expected: 06/22/2024, Expires: 06/22/2025 [facility] Work Phone: Comment on above: Expected: 06/22/2024, Expires: Start: 06-22-2024 End: 06-22-2025 C reactive protein [Mass/volume] in Serum or Plasma by High sensitivity method C-Reactive Protein, High Sensitivity Lab Routine 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 S/P right coronary artery (RCA) stent placement Primary hypertension Expected: 06/22/2024, Expires: 06/22/2025 [facility] Work Phone: Comment on above: Expected: 06/22/2024, Expires: Start: 06-22-2024 End: 06-22-2025 Lipid 1996 panel - Serum or Plasma Lipid Panel Lab Routine 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 S/P right coronary artery (RCA) stent placement Mixed hyperlipidemia Expected: 06/22/2024, Expires: 06/22/2025 [facility] Service [facility] Work Phone: Comment on above: Expected: 06/22/2024, Expires: Start: 06-22-2024 End: 06-22-2024 Patient encounter procedure 06/22/2024 9:40 AM EDT Office Visit [facility] [address] [place] [id number] Mahamed Acharya DO [address] [place] [address] [facility] Start: 06-17-2024 End: 06-17-2025 CBC W Auto Differential panel - Blood CBC and differential Lab Routine Iron deficiency anemia, unspecified iron deficiency anemia type Expected: 06/17/2024 (Approximate), Expires: 06/17/2025 [facility] Comment on above: Expected: 06/17/2024 (Approximate), Expi res: 06/17/2025 Start: 06-17-2024 End: 06-17-2025 Comprehensive metabolic 2000 panel - Serum or Plasma Comprehensive metabolic panel Lab Routine Primary hypertension ([facility]/HCC) Type 2 diabetes mellitus with other diabetic kidney complication ([facility]/HCC) Expected: 06/17/2024 (Approximate), Expires: 06/17/2025 [facility] Comment on above: Expected: 06/17/2024 (Approximate), Expi res: 06/17/2025 Start: 06-17-2024 End: 06-17-2025 Hemoglobin A1c/Hemoglobin.total in Blood Hemoglobin A1c Lab Routine Type 2 diabetes mellitus with other diabetic kidney complication ([facility]/HCC) Expected: 06/17/2024 (Approximate), Expires: 06/17/2025 [facility] Work Phone: Comment on above: Expected: 06/17/2024 (Approximate), Expi res: 06/17/2025 Start: 06-17-2024 End: 06-17-2025 Iron + transferrin + TIBC Iron + transferrin + TIBC Lab Routine Iron deficiency anemia, unspecified iron deficiency anemia type Expected: 06/17/2024 (Approximate), Expires: 06/17/2025 [facility] Comment on above: Expected: 06/17/2024 (Approximate), Expi res: 06/17/2025 Start: 06-17-2024 End: 06-17-2024 Patient encounter procedure 06/17/2024 9:00 AM EDT Office Visit [facility] [address] [place] [id number] Zahira Lundberg NP [address] [place] [address] [facility] Start: 04-24-2024 COVID-19 Vaccine ( season) COVID-19 Vaccine () [facility] Start: 04-24-2024 Influenza vaccination [facility] Start: 03-15-2024 Hemoglobin A1c measurement Diabetes: Hemoglobin A1C [facility] Start: 12-17-2023 End: 12-16-2024 Alanine aminotransferase [Enzymatic activity/volume] in Serum or Plasma by With P-5'-P Alanine Aminotransferase Lab Routine Mixed hyperlipidemia Expected: 12/17/2023 (Approximate), Expires: 12/16/2024 [facility] Work Phone: Comment on above: Expected: 12/17/2023 (Approximate), Expi res: 12/16/2024 Start: 12-17-2023 End: 12-16-2024 Aspartate aminotransferase [Enzymatic activity/volume] in Serum or Plasma by With P-5'-P Aspartate Aminotransferase Lab Routine Mixed hyperlipidemia Expected: 12/17/2023 (Approximate), Expires: 12/16/2024 [facility] Work Phone: Comment on above: Expected: 12/17/2023 (Approximate), Expi res: 12/16/2024 Start: 12-17-2023 End: 12-16-2024 Lipid 1996 panel - Serum or Plasma Lipid Panel Lab Routine Mixed hyperlipidemia Expected: 12/17/2023 (Approximate), Expires: 12/16/2024 [facility] Service Area Work Phone: Comment on above: Expected: 12/17/2023 (Approximate), Expi res: 12/16/2024 Start: 12-17-2023 FUV, Provider: Mahamed Acharya, Status: Sony, Time: 10:30 AM FUV, Provider: Mahamed Acharya, Status: Sony, Time: 10:30 AM [facility] [address] DO Work Phone: Start: 07-02-2023 Bacteria identified in Urine by Culture [facility] Start: 05-08-2023 Blood chemistry [facility] Start: 05-08-2023 [facility] Start: 05-07-2023 Blood chemistry [facility] Start: 05-07-2023 [facility] Start: 05-06-2023 Blood chemistry [facility] Start: 05-06-2023 [facility] Start: 05-05-2023 Blood chemistry [facility] Start: 05-05-2023 [facility] Start: 05-04-2023 Blood chemistry [facility] Start: 05-04-2023 [facility] Start: 05-03-2023 Blood chemistry [facility] Start: 05-03-2023 [facility] Start: 05-02-2023 Blood chemistry [facility] Start: 05-02-2023 [facility] Start: 05-01-2023 Blood chemistry [facility] Start: 05-01-2023 [facility] Start: 04-30-2023 Blood chemistry [facility] Start: 04-30-2023 End: 04-30-2023 [facility] Start: 04-29-2023 Dilation of Coronary Artery, One Artery with Drug-eluting Intraluminal Device, Percutaneous Approach Dilation of Coronary Artery, One Artery with Drug-eluting Intraluminal Device, Percutaneous Approach [facility] Start: 04-29-2023 Fluoroscopy of Left Heart using Low Osmolar Contrast Fluoroscopy of Left Heart using Low Osmolar Contrast [facility] Start: 04-29-2023 Fluoroscopy of Multiple Coronary Arteries using Low Osmolar Contrast Fluoroscopy of Multiple Coronary Arteries using Low Osmolar Contrast [facility] Start: 04-29-2023 Measurement of Cardiac Sampling and Pressure, Left Heart, Percutaneous Approach Measurement of Cardiac Sampling and Pressure, Left Heart, Percutaneous Approach [facility] Start: 04-29-2023 Blood chemistry [facility] Start: 04-29-2023 End: 04-29-2023 [facility] Start: 04-28-2023 End: 04-29-2023 [facility] Start: 04-28-2023 Hospital admission [facility] Start: 04-28-2023 Referral to nurse recruiter [facility] Start: 04-28-2023 Bacteria identified in Urine by Culture [facility] Start: 04-24-2023 COVID-19 Vaccine (4 - 2023-24 season) COVID-19 Vaccine ( season) [facility] Start: 04-24-2023 Influenza vaccination INFLUENZA (#1) [facility] Start: 03-18-2023 Screening for malignant neoplasm of cervix [facility] Start: 03-06-2023 Bacteria identified in Urine by Culture Urine Culture [facility] Start: 09-07-2022 Bacteria identified in Urine by Culture Urine Culture [facility] Start: 08-24-2022 DEPRESSION ASSESSMENT DEPRESSION ASSESSMENT [facility] Start: 04-04-2022 Screening for malignant neoplasm of colon FIT-DNA [facility] Start: 03-21-2022 Screening for malignant neoplasm of breast Mammogram [facility] Start: 2019 RSV High Risk: (Elderly (60+) or Population) (1 - Risk 60-74 years 1-dose series) RSV High Risk: (Elderly (60+) or Population) (1 - Risk 60-74 years 1-dose series) [facility] Start: 2019 RSV patients and/or patients aged 60+ years (1 - 1-dose 60+ series) RSV patients and/or patients aged 60+ years (1 - 1-dose 60+ series) [facility] Start: 08-08-2018 DIABETES SCREEN DIABETES SCREEN [facility] Start: 05-14-2015 MMR Vaccines (1 of 1 - Standard series) MMR Vaccines (1 of 1 - Standard series) [facility] Start: 01-17-2014 SHINGRIX VACCINE (2 of 3) SHINGRIX VACCINE (2 of 3) [facility] Start: 12-28-2004 COLOGUARD (FIT-DNA) COLOGUARD (FIT-DNA) [facility] Start: 12-28-2004 Colonoscopy COLONOSCOPY [facility] Start: 12-28-2004 COLORECTAL CANCER SCREENING COLORECTAL CANCER SCREENING [facility] Start: 12-28-[address] COLONOGRAPHY [facility] Start: 12-28-2004 FECAL OCCULT BLOOD FECAL OCCULT BLOOD [facility] Start: 12-28-2004 LIPID SCREEN LIPID SCREEN [facility] Start: 12-28-2004 SIGMOIDOSCOPY SIGMOIDOSCOPY [facility] Start: 1999 Mammography MAMMOGRAM [facility] Start: 12-28-1989 HPV TESTING HPV TESTING [facility] Start: 12-28-1981 DTaP/Tdap/Td Vaccines (1 - Tdap) DTaP/Tdap/Td Vaccines (1 - Tdap) [facility] Start: 12-28-1980 PAP TESTING PAP TESTING [facility] Start: 12-28-1980 Screening for malignant neoplasm of cervix [facility] Start: 12-28-1978 Hepatitis A Vaccines (1 of 2 - Risk 2-dose series) Hepatitis A Vaccines (1 of 2 - Risk 2-dose series) [facility] Start: 12-28-1978 Urine microalbumin profile DTAP,TDAP,TD (1 - Tdap) [facility] Start: 12-28-1977 HEPATITIS C SCREENING HEPATITIS C SCREENING [facility] Start: 12-28-1977 Hepatitis C screening Hepatitis C Screening [facility] Start: 12-28-1977 HIV SCREENING HIV SCREENING [facility] Start: 12-28-1969 Diabetic foot examination Diabetes: Foot Exam [facility] Start: 12-28-1969 Glaucoma screening Diabetes: Retinopathy Screening [facility] Start: 12-28-1965 Pneumococcal Vaccine: 65+ Years (1 of 2 - PCV) Pneumococcal Vaccine: 65+ Years (1 of 2 - PCV) [facility] Start: 12-28-1965 Pneumococcal Vaccine: Pediatrics (0 to 5 Years) and At-Risk Patients (6 to 64 Years) (1 of 2 - PCV) Pneumococcal Vaccine: Pediatrics (0 to 5 Years) and At-Risk Patients (6 to 64 Years) (1 of 2 - PCV) [facility] Start: 06-30-1960 COVID-19 VACCINE (#1) COVID-19 VACCINE (#1) [facility] Start: 1959 Hemoglobin A1c measurement Diabetes: Hemoglobin A1C [facility] Start: 1959 HIV screening HIV Screening [facility] Start: 1959 Lipid panel Lipid Panel [facility] Start: 1959 Screening for malignant neoplasm of colon [facility] Start: 1959 Yearly Adult Physical Yearly Adult Physical [facility] Anion gap measurement [facility] Basophils [#/volume] in Blood by Automated count [facility] Basophils/100 leukoc ytes in Blood by Automated count [facility] Calculated LDL cholesterol level [facility] Cholesterol.total/Ch olest trace in HDL [Mass Ratio] in Serum or Plasma [facility] Comprehensive metabo lic 2000 panel - Serum or Plasma [facility] Eosinophils [#/volum e] in Blood [facility] Eosinophils/100 leukocytes in Blood by Automated count [facility] Erythrocyte distribu tion width [Ratio] by Automated count [facility] Erythrocytes [#/volu me] in Blood [facility] Glucose measurement estimated from glycated hemoglobin [facility] Hematocrit [Volume Fraction] of Blood [facility] Hemoglobin [Mass/vol ume] in Blood [facility] Leukocytes [#/volume ] corrected for nucleated erythrocytes in Blood by Automated coun [facility] Leukocytes [#/volume ] in Blood [facility] Lymphocytes [#/volum e] in Blood by Automated count [facility] Lymphocytes/100 leukocytes in Blood by Automated count [facility] MCH [Entitic mass] b y Automated count [facility] MCHC [Mass/volume] b y Automated count [facility] MCV [Entitic volume] by Automated count [facility] Monocytes [#/volume] in Blood by Automated count [facility] Monocytes/100 leukoc ytes in Blood by Automated count [facility] Neutrophils [#/volum e] in Blood by Automated count [facility] Neutrophils/100 leukocytes in Blood by Automated count [facility] Nucleated erythrocyt es [Presence] in Blood by Automated count [facility] Patient Education [facility] Work Phone: Patient referral [facility] Work Phone: Platelet mean volume [Entitic volume] in Blood by Automated count [facility] Platelets [#/volume] in Blood [facility] VLDL cholesterol measurement [facility] XR Cervical spine 5 Views [facility] Immunizations Immunization Date Immunization Notes Care Provider Carri field 12-13-2021 Pfizer Palomo Cap SARS-CoV-2 Mahamed Acharya DO Work Phone: [facility] Work Phone: 12-13-2021 SARS-CoV-2 mRNA (tjvsxrldrby-gobh-don edel) vaccine Joe CARTAGENA [facility] 12-13-2021 SARS-CoV-2, Unspecified Zahira Walteralfreditoleodan BURAK Work Phone: [facility] 01-05-2021 zoster vaccine recombinant Mahamed Acharya DO Work Phone: [facility] Work Phone: 11-20-2020 SARS-CoV-2 (COVID-19 ) mRNA BNT-162x1 vax Joe CARTAGENA [facility] 10-30-2020 SARS-CoV-2 (COVID-19 ) mRNA BNT-162w3 vax Joe CARTAGENA [facility] 10-06-2020 zoster vaccine recombinant Mahamed Acharya DO Work Phone: [facility] Work Phone: 07-28-2019 Seasonal, quadrivalent, recombinant, injectable influenza vaccine, preservative free Mahamed Acharya DO Work Phone: [facility] Work Phone: 07-28-2019 influenza virus vaccine, unspecified formulation Mahamed Acharya DO Work Phone: [facility] 04-16-2015 zoster vaccine, live Mahamed Acharya DO Work Phone: [facility] Work Phone: 11-22-2013 zoster vaccine, live Jose Eduardo nunez MD Work Phone: [facility] Work Phone: NEGATED: Highlighted row has not occurred!11-24-2023 influenza virus vaccine, unspecified formulation CHLOÉ PIZANO [facility] Payers Date Payer Category Payer Self-pay [id number] 2022 Managed Care (Private) [facility] [id number] 2022 Private Health Insurance [id number] .[id number]. [id number] 2021 Unknown [id number] 2014 Unknown 1959 Unknown [id number] 2.16.840.1.699802.3.579. 2.196 1959 Unknown [id number] 2.16.840.1.373739.3.579. 2.196 1959 Unknown [id number] 2.16.840.1.712800.3.579. 2.196 1959 Unknown [id number] 2.16.840.1.733393.3.579. 2.196 1959 Unknown [id number] 2.16.840.1.574070.3.579. 2.196 1959 Unknown [id number] 2.16.840.1.383634.3.579. 2.593 1959 Unknown [id number] 2.16.840.1.010935.3.579. 2.593 1959 Unknown [id number] 2.16.840.1.127051.3.579. 2.593 1959 Unknown [id number] 2.16.840.1.659570.3.579. 2.593 1959 Unknown [id number] 2.16.840.1.656967.3.579. 2.593 1959 Unknown [id number] 2.16.840.1.450689.3.579. 2.593 1959 Unknown [id number] 2.16.840.1.806774.3.579. 2.593 1959 Unknown [id number] 2.16.840.1.271689.3.579. 2.593 1959 Unknown [id number] 2.16.840.1.982347.3.579. 2.593 1959 Unknown [id number] 2.16.840.1.957381.3.579. 2.593 1959 Unknown [id number] 2.16.840.1.849536.3.579. 2.593 1959 Unknown [id number] 2.16.840.1.948693.3.579. 2.356 1959 Unknown [id number] 2.16.840.1.982447.3.579. 2.356 1959 Unknown [id number] 2.16.840.1.552131.3.579. 2.356 1959 Unknown [id number] 2.16.840.1.198948.3.579. 2.356 1959 Unknown [id number] 2.16.840.1.768165.3.579. 2.356 1959 Unknown [id number] 2.16.840.1.969990.3.579. 2.1244 1959 Unknown [id number] 2.16.840.1.180702.3.579. 2.1244 1959 Unknown [id number] 2.16.840.1.284949.3.579. 2.1259 1959 Unknown [id number] 2.16.840.1.268140.3.579. 2.1259 -07-1960 Unknown [id number] 2.16.840.1.547939.3.579. 2.1258 1959 Unknown [id number] 2.16.840.1.130760.3.579. 2.1258 1959 Unknown [id number] 2.16.840.1.998190.3.579. 2.1258 1959 Unknown [id number] 2.16.840.1.984420.3.579. 2.1258 1959 Unknown [id number] 2.16.840.1.690206.3.579. 2.1258 1959 Unknown [id number] 2.16.840.1.138437.3.579. 2.1258 1959 Unknown [id number] 2.16.840.1.790389.3.579. 2.1258 1959 Unknown [id number] 2.16.840.1.418789.3.579. 2. 1959 Unknown [id number] 2.16.840.1.394862.3.579. 2. 1959 Unknown [id number] 2.16.840.1.126385.3.579. 2. 1959 Unknown [id number] 2.16.840.1.990503.3.579. 2. 1959 Unknown [id number] 2.16.840.1.668680.3.579. 2 1959 Unknown [id number] 2.16.840.1.018552.3.579. 2. 1959 Unknown [id number] 2.16.840.1.436307.3.579. 2. 1959 Unknown [id number] 2.16.840.1.269778.19 1959 Unknown [id number] 2.16.840.1.834038.19 Unknown [facility] [id number] Unknown [id number] 2.16.840.1.729780.3.579. 2.531 Social History Date Type Detail Facility Start: 09-30-2023 End: 08-25-2024 Sex Assigned At [facility] Start: 1960 Sex Assigned At Female F [facility] Start: 04-29-2023 End: 09-30-2023 Tobacco smoking status NHIS Ex-smoker (finding) [facility] Start: 01-08-2015 End: 06-17-2024 Tobacco smoking status TXIS Smokes tobacco daily [facility] History of tobacco use Cigarette Smoker C [facility] Start: 01-08-2015 End: 08-25-2024 Cigarettes smoked current (pack per day) - Reported 1 [facility] Comment on above: Coffee 1-2 daily Pop 2 cans daily Tea 1-2 weekly; February 28, 2023 - 1ppd; Start: 04-10-2022 Alcohol intake Current non-dr dog catcher of alcohol (finding) [facility] Start: 1960 Sex Assigned At Not on file C [facility] Start: 07-02-2023 End: 07-02-2023 Tobacco smoking status TXIS Never smoked tobacco (finding) [facility] Start: 11-24-2023 End: 09-20-2024 Tobacco smoking status Heavy tobacco smoker (finding) [facility] History of tobacco use Current smoker [facility] Work Phone: Start: 12-17-2023 End: 06-22-2024 Alcoholic beverage intake Current drinker of alcohol (finding) [facility] Work Phone: Start: 09-30-2023 Alcohol Comment rarely [facility] Work Phone: Start: 12-07-2023 End: 06-22-2024 Exposure to SARS-CoV-2 (event) Not sure [facility] Start: 01-15-2024 End: 06-17-2024 Tobacco use and exposure Smokeless tobacco non-user [facility] Start: 01-15-2024 End: 08-25-2024 Alcoholic beverage intake Lifetime non-drinker (finding) [facility] Start: 01-15-2024 Alcohol Comment caffeine: 1/2 cups per day [facility] Start: 11-05-2022 Gender identity Identifies as female gender (finding) [facility] Start: 06-17-2024 Alcohol Comment caffeine: 1/2 cup per day [facility] Tobacco smoking status Never [facility] Start: 10-04-2024 Sex Female (finding) [facility] Medical Equipment Procedure Code Equipment Code Equipment Origin al Text Equipment Identifier Dates CL STENT VAIBHAV FRONTIER 4.0 X 26 FDA Start: 04-29-2023 CL STENT VAIBHAV FRONTIER 4.0 X 26 FDA Start: 04-29-2023 CL STENT VAIBHAV FRONTIER 4.0 X 26 FDA Start: 04-29-2023 Goals Date Patient Goal Desired Activity /State Personal health goal Functional Status Date Assessment Result Facility 09-20-2024 Functional Status N/A [facility] 2023 Functional Status N/A [facility] 11-24-2023 Functional Status N/A [facility] 04-30-2023 Functional status Patient at Baseline [facility] Work Phone: Mental Status Date Assessment Result Facility 04-30-2023 Cognitive function Cognitive Sta tus Patient at Baseline [facility] Work Phone: Clinical Notes 02-03-2022 to 09-20-2024 Dominic Ballard NP - 08/25/2024 10:30 AM Lisset Ballard NP - 07/28/2024 10:30 AM EST Note Date & Type Note Facility 09-20-2024 Hospital Discharge instructions Patient Education 09/20/2024 13:31:07 Overactive Bladder, Adult Overactive Bladder, Adult Overactive bladder is a condition in which a person has a sudden and frequent need to urinate. A person might also leak urine if he or she cannot get to the bathroom fast enough (urinary incontinence). Sometimes, symptoms can interfere with work or social activities. What are the causes? Overactive bladder is associated with poor nerve signals between your bladder and your brain. Your bladder may get the signal to empty before it is full. You may also have very sensitive muscles that make your bladder squeeze too soon. This condition may also be caused by other factors, such as: Medical conditions: ?Urinary tract infection. ?Infection of nearby tissues. ?Prostate enlargement. ?Bladder stones, inflammation, or tumors. ?Diabetes. ?Muscle or nerve weakness, especially from these conditions: ?A spinal cord injury. ?Stroke. ?Multiple sclerosis. ?Parkinson's disease. Other causes: ?Surgery on the uterus or urethra. ?Drinking too much caffeine or alcohol. ?Certain medicines, especially those that eliminate extra fluid in the body (diuretics). ?Constipation. What increases the risk? You may be at greater risk for overactive bladder if you: Are an older adult. Smoke. Are going through menopause. Have prostate problems. Have a neurological disease, such as stroke, dementia, Parkinson's disease, or multiple sclerosis (MS). Eat or drink alcohol, spicy food, caffeine, and other things that irritate the bladder. Are overweight or obese. What are the signs or symptoms? Symptoms of this condition include a sudden, strong urge to urinate. Other symptoms include: Leaking urine. Urinating 8 or more times a day. Waking up to urinate 2 or more times overnight. How is this diagnosed? This condition may be diagnosed based on: Your symptoms and medical history. A physical exam. Blood or urine tests to check for possible causes, such as infection. You may also need to see a health care provider who specializes in urinary tract problems. This is called a urologist. How is this treated? Treatment for overactive bladder depends on the cause of your condition and whether it is mild or severe. Treatment may include: Bladder training, such as: ?Learning to control the urge to urinate by following a schedule to urinate at regular intervals. ?Doing Kegel exercises to strengthen the pelvic floor muscles that support your bladder. Special devices, such as: ?Biofeedback. This uses sensors to help you become aware of your body's signals. ?Electrical stimulation. This uses electrodes placed inside the body (implanted) or outside the body. These electrodes send gentle pulses of electricity to strengthen the nerves or muscles that control the bladder. ?Women may use a plastic device, called a pessary, that fits into the vagina and supports the bladder. Medicines, such as: ?Antibiotics to treat bladder infection. ?Antispasmodics to stop the bladder from releasing urine at the wrong time. ?Tricyclic antidepressants to relax bladder muscles. ?Injections of botulinum toxin type A directly into the bladder tissue to relax bladder muscles. Surgery, such as: ?A device may be implanted to help manage the nerve signals that control urination. ?An electrode may be implanted to stimulate electrical signals in the bladder. ?A procedure may be done to change the shape of the bladder. This is done only in very severe cases. Follow these instructions at home: Eating and drinking Make diet or lifestyle changes recommended by your health care provider. These may include: ?Drinking fluids throughout the day and not only with meals. ?Cutting down on caffeine or alcohol. ?Eating a healthy and balanced diet to prevent constipation. This may include: ?Choosing foods that are high in fiber, such as beans, whole grains, and fresh fruits and vegetables. ?Limiting foods that are high in fat and processed sugars, such as fried and sweet foods. Lifestyle Lose weight if needed. Do not use any products that contain nicotine or tobacco. These include cigarettes, chewing tobacco, and vaping devices, such as e-cigarettes. If you need help quitting, ask your health care provider. General instructions Take [id number] and prescription medicines only as told by your health care provider. If you were prescribed an antibiotic medicine, take it as told by your health care provider. Do not stop taking the antibiotic even if you start to feel better. Use any implants or pessary as told by your health care provider. If needed, wear pads to absorb urine leakage. Keep a log to track how much and when you drink, and when you need to urinate. This will help your health care provider monitor your condition. Keep all follow-up visits. This is important. Contact a health care provider if: You have a fever or chills. Your symptoms do not get better with treatment. Your pain and discomfort get worse. You have more frequent urges to urinate. Get help right away if: You are not able to control your bladder. Summary Overactive bladder refers to a condition in which a person has a sudden and frequent need to urinate. Several conditions may lead to an overactive bladder. Treatment for overactive bladder depends on the cause and severity of your condition. Making lifestyle changes, doing Kegel exercises, keeping a log, and taking medicines can help with this condition. This information is not intended to replace advice given to you by your health care provider. Make sure you discuss any questions you have with your health care provider. Document Revised: 04/29/2021 Document Reviewed: 04/29/2021 [employer] Patient Education 2023 [employer]. Follow Up Care 09/19/2024 13:16:54 With:JERICA MOREIRA, CHLOÉ Anne, URL Address: [address] [place] [address] When:Within 1 Month(s) [facility] 09-20-2024 Note Patient Education Obstetrics and Gynecology Overactive Bladder, Adult Overactive bladder is a condition in which a person has a sudden and frequent need to urinate. A person might also leak urine if he or she cannot get to the bathroom fast enough (urinary incontinence). Sometimes, symptoms can interfere with work or social activities. What are the causes? Overactive bladder is associated with poor nerve signals between your bladder and your brain. Your bladder may get the signal to empty before it is full. You may also have very sensitive muscles that make your bladder squeeze too soon. This condition may also be caused by other factors, such as: ??? Medical conditions: ? Urinary tract infection. ? Infection of nearby tissues. ? Prostate enlargement. ? Bladder stones, inflammation, or tumors. ? Diabetes. ? Muscle or nerve weakness, especially from these conditions: ? A spinal cord injury. ? Stroke. ? Multiple sclerosis. ? Parkinson's disease. ??? Other causes: ? Surgery on the uterus or urethra. ? Drinking too much caffeine or alcohol. ? Certain medicines, especially those that eliminate extra fluid in the body (diuretics). ? Constipation. What increases the risk? You may be at greater risk for overactive bladder if you: ??? Are an older adult. ??? Smoke. ??? Are going through menopause. ??? Have prostate problems. ??? Have a neurological disease, such as stroke, dementia, Parkinson's disease, or multiple sclerosis (MS). ??? Eat or drink alcohol, spicy food, caffeine, and other things that irritate the bladder. ??? Are overweight or obese. What are the signs or symptoms? Symptoms of this condition include a sudden, strong urge to urinate. Other symptoms include: ??? Leaking urine. ??? Urinating 8 or more times a day. ??? Waking up to urinate 2 or more times overnight. How is this diagnosed? This condition may be diagnosed based on: ??? Your symptoms and medical history. ??? A physical exam. ??? Blood or urine tests to check for possible causes, such as infection. You may also need to see a health care provider who specializes in urinary tract problems. This is called a urologist. How is this treated? Treatment for overactive bladder depends on the cause of your condition and whether it is mild or severe. Treatment may include: ??? Bladder training, such as: ? Learning to control the urge to urinate by following a schedule to urinate at regular intervals. ? Doing Kegel exercises to strengthen the pelvic floor muscles that support your bladder. ??? Special devices, such as: ? Biofeedback. This uses sensors to help you become aware of your body's signals. ? Electrical stimulation. This uses electrodes placed inside the body (implanted) or outside the body. These electrodes send gentle pulses of electricity to strengthen the nerves or muscles that control the bladder. ? Women may use a plastic device, called a pessary, that fits into the vagina and supports the bladder. ??? Medicines, such as: ? Antibiotics to treat bladder infection. ? Antispasmodics to stop the bladder from releasing urine at the wrong time. ? Tricyclic antidepressants to relax bladder muscles. ? Injections of botulinum toxin type A directly into the bladder tissue to relax bladder muscles. ??? Surgery, such as: ? A device may be implanted to help manage the nerve signals that control urination. ? An electrode may be implanted to stimulate electrical signals in the bladder. ? A procedure may be done to change the shape of the bladder. This is done only in very severe cases. Follow these instructions at home: Eating and drinking ??? Make diet or lifestyle changes recommended by your health care provider. These may include: ? Drinking fluids throughout the day and not only with meals. ? Cutting down on caffeine or alcohol. ? Eating a healthy and balanced diet to prevent constipation. This may include: ? Choosing foods that are high in fiber, such as beans, whole grains, and fresh fruits and vegetables. ? Limiting foods that are high in fat and processed sugars, such as fried and sweet foods. Lifestyle ??? Lose weight if needed. ??? Do not use any products that contain nicotine or tobacco. These include cigarettes, chewing tobacco, and vaping devices, such as e-cigarettes. If you need help quitting, ask your health care provider. General instructions ??? Take vumr-jsx-wawffhw and prescription medicines only as told by your health care provider. ??? If you were prescribed an antibiotic medicine, take it as told by your health care provider. Do not stop taking the antibiotic even if you start to feel better. ??? Use any implants or pessary as told by your health care provider. ??? If needed, wear pads to absorb urine leakage. ??? Keep a log to track how much and when you drink, and whe (more content not included)... [facility] 08-25-2024 History of Present illness Narrative Images from the original note were not included. Brenda Segura is a 63 y.o. female presents with chief complaint of Follow-up HPI: HPI Patient presents today for a follow up on medication. She states she still hasn't gotten the zoloft yet, but did find out she owes them a bill and she paid it, and just wating for the medication to come in. She does complain of bilateral thumb pain. This is worse in the morning, and tends to get better throughout the day. Over the past 2 weeks, how often have you been bothered by any of the following problems? Little interest or pleasure in doing things: Several days Feeling down, depressed, or hopeless: Several days Trouble falling or staying asleep, or sleeping too much: Several days Feeling tired or having little energy: Several days Poor appetite or overeating: Several days Feeling bad about yourself - or that you are a failure or have let yourself or your family down: Several days Trouble concentrating on things, such as reading the newspaper or watching television: Several days Moving or speaking so slowly that other people could have noticed? Or the opposite - being so fidgety or restless that you have been moving around a lot more than usual.: Not at all Thoughts that you would be better off or hurting yourself in some way: Not at all Patient Health Questionnaire-9 Score: 7 Over the last 2 weeks, how often have you been bothered by any of the following problems? Feeling nervous, anxious, or on edge: Nearly every day Not being able to stop or control worrying: Not at all Worrying too much about different things: Not at all Trouble relaxing: Not at all Being so restless that it is hard to sit still: More than half the days Becoming easily annoyed or irritable: Nearly every day Feeling afraid as if something awful might happen: More than half the days ALDAIR-7 Total Score: 10 SUBJECTIVE: MEDICATIONS: Current Outpatient Medications Medication Instructions aspirin 81 mg, Daily atorvastatin (LIPITOR) 80 mg, Oral, Daily Cranberry 200 MG capsule Take by mouth ferrous sulfate (FE TABS) 325 mg, Oral, 2 times daily, Do not crush, chew, or split. glimepiride (AMARYL) 4 mg, Oral, Daily before breakfast Ixekizumab (Taltz) 80 MG/ML injection 1 ml Subcutaneous once monthly lisinopril 10 mg, Oral, Daily metFORMIN (GLUCOPHAGE) 850 mg, Oral, 2 times daily with meals, Hold until 05/02/23 per [facility] metoprolol tartrate (LOPRESSOR) 50 mg, Oral, 2 times daily nitroglycerin (NITROSTAT) 0.4 mg, Daily PRN pioglitazone (ACTOS) 30 mg, Oral, Every morning sertraline (Zoloft) 25 MG tablet TAKE 1 TABLET BY MOUTH IN THE MORNING. GENERIC EQUIVALENT FOR ZOLOFT I have reviewed and reconciled the history and medication list with the patient today. REVIEW OF SYMPTOMS: Review of Systems Constitutional: Negative. HENT: Negative. Respiratory: Negative for cough, shortness of breath and wheezing. Cardiovascular: Negative for chest pain. Gastrointestinal: Negative for abdominal pain. Genitourinary: Negative. Musculoskeletal: Positive for arthralgias. Skin: Negative. Neurological: Negative. OBJECTIVE: Visit Vitals BP 134/80 Pulse 73 Ht 5' 7 Wt 151 lb 12.8 oz BMI 23.78 kg/m Smoking Status Every Day BSA 1.8 m Physical Exam Vitals and nursing note reviewed. Constitutional: Appearance: Normal appearance. HENT: Head: Normocephalic and atraumatic. Right Ear: Tympanic membrane normal. Left Ear: Tympanic membrane normal. Nose: Nose normal. Eyes: Extraocular Movements: Extraocular movements intact. Conjunctiva/sclera: Conjunctivae normal. Pupils: Pupils are equal, round, and reactive to light. Cardiovascular: Rate and Rhythm: Normal rate and regular rhythm. Pulses: Normal pulses. Heart sounds: Normal heart sounds. Pulmonary: Effort: Pulmonary effort is normal. Breath sounds: Normal breath sounds. Musculoskeletal: Cervical back: Normal range of motion and neck supple. Skin: General: Skin is warm and dry. Capillary Refill: Capillary refill takes less than 2 seconds. Neurological: Mental Status: She is alert and oriented to person, place, and time. ASSESSMENT AND PLAN: Assessment/Plan Diagnoses and all orders for this visit: Primary hypertension ([facility]) Discussed current management plan. Goal BP less then 130/80. Discussed heart healthy diet, increase fruits and vegetables, limit salt intake. Encouraged increase physical exercise, try to be as active as possible at least 150 mins per week. Importance of weight management with a goal BMI less then 27 discussed. Discussed complications of uncontrolled blood pressure. Patient instructed to monitor BP's 1-2 times a week, keep a log, and bring to next visit. Barriers to care and medication compliance discussed. Patient voices understanding of meds. Type 2 diabetes mellitus with other diabetic kidney complication ([facility]) Diabetic protocols reviewed. Discussed and updated current management plan. Addressed barriers to care, diet, exercise plan and blood sugar testing. Education provided for medications. Goal A1C <7 and BP <130/80 for suboptimally controlled diabetes. I have encouraged patient to check feet regularly and to see ophthomololgist annually. I have discussed the need for regular testing and follow up. We will recheck an A1C every 3 months and microalbumin yearly. Discussed complications which could include blindness, heart disease and kidney disease. ALDAIR (generalized anxiety disorder) ([facility]) She has not gotten the increased dose of zoloft yet. She did find out that she had a bill with the pharmacy and that is why it wasn't sent. She reports that they are sending it now that she has paid her bill. She will follow up 1 month after starting the increased dose. Type 2 diabetes mellitus with diabetic cataract ([facility]) documented in this encounter [facility] 07-28-2024 History of Present illness Narrative Images from the original note were not included. Brenda Segura is a 63 y.o. female presents with chief complaint of Follow-up HPI: HPI Patient presents today for 6 week follow up on anxiety/depression. Pt states she is doing okay. She never did get the zoloft script, so she has just been taking the 25 mg, she states it was suppose to be mailed to her through [employer] mail order, she has had this script prior through mail order and never had a problem. She has been taking her iron BID. SUBJECTIVE: MEDICATIONS: Current Outpatient Medications Medication Instructions aspirin 81 mg, Daily atorvastatin (LIPITOR) 80 mg, Oral, Daily Cranberry 200 MG capsule Take by mouth ferrous sulfate (FE TABS) 325 mg, Oral, 2 times daily, Do not crush, chew, or split. glimepiride (AMARYL) 4 mg, Oral, Daily before breakfast Ixekizumab (Taltz) 80 MG/ML injection 1 ml Subcutaneous once monthly lisinopril 10 mg, Oral, Daily metFORMIN (GLUCOPHAGE) 850 mg, Oral, 2 times daily with meals, Hold until 05/02/23 per [facility] metoprolol tartrate (LOPRESSOR) 50 mg, Oral, 2 times daily nitroglycerin (NITROSTAT) 0.4 mg, Daily PRN pioglitazone (ACTOS) 30 mg, Oral, Every morning sertraline (ZOLOFT) 50 mg, Oral, Daily I have reviewed and reconciled the history and medication list with the patient today. REVIEW OF SYMPTOMS: Review of Systems Constitutional: Negative. HENT: Negative. Respiratory: Negative for cough, shortness of breath and wheezing. Cardiovascular: Negative for chest pain. Gastrointestinal: Negative for abdominal pain. Genitourinary: Negative. Musculoskeletal: Negative. Skin: Negative. Neurological: Negative. OBJECTIVE: Visit Vitals BP 134/70 Pulse 71 Ht 5' 7 Wt 151 lb 9.6 oz BMI 23.74 kg/m Smoking Status Every Day BSA 1.8 m Physical Exam Vitals and nursing note reviewed. Constitutional: Appearance: Normal appearance. HENT: Head: Normocephalic and atraumatic. Right Ear: Tympanic membrane normal. Left Ear: Tympanic membrane normal. Nose: Nose normal. Eyes: Extraocular Movements: Extraocular movements intact. Conjunctiva/sclera: Conjunctivae normal. Pupils: Pupils are equal, round, and reactive to light. Cardiovascular: Rate and Rhythm: Normal rate and regular rhythm. Heart sounds: Normal heart sounds. Pulmonary: Effort: Pulmonary effort is normal. Breath sounds: Normal breath sounds. Abdominal: General: Bowel sounds are normal. There is no distension. Palpations: Abdomen is soft. Musculoskeletal: Cervical back: Normal range of motion and neck supple. Skin: General: Skin is warm and dry. Capillary Refill: Capillary refill takes less than 2 seconds. Neurological: Mental Status: She is alert and oriented to person, place, and time. ASSESSMENT AND PLAN: Assessment/Plan Diagnoses and all orders for this visit: Mixed hyperlipidemia (CMS/HCC) - Lipid panel; Future Recheck labs today. Recurrent major depressive disorder, in partial remission (HCC) (CMS/HCC) Comments: improved with sertraline Orders: - sertraline (Zoloft) 25 MG tablet; Take 2 tablets (50 mg) by mouth Daily Since she never got the 50 mg dose after last visit, will send the increased dose of [facility] and she should contact us in 2 weeks if she has not had this in the past. Screening mammogram for breast cancer - Bilateral screening mammogram with tomosynthesis; Future ALDAIR (generalized anxiety disorder) (CMS/HCC) Iron deficiency anemia, unspecified iron deficiency anemia type Will obtain urine and stool card as ordered by Zahira at last visit. documented in this encounter [facility] 07-22-2024 Evaluation note Diagnosis Onset Date Resolution Dysuria acute July 22, 2024 4:23pm CAD (coronary artery disease) acute October 04 025 8:48am High cholesterol acute October 04, 2024 8:48am Pain in both upper extremities acute October 04 025 8:48am Type 2 diabetes mellitus with hyperglycemia acute September 8:48am Wellness examination acute ua2024 8:48am [facility] Work Phone: 1(180) 856-357711-14-2024 History of Present illness Narrative* Xiao Mascorro, BURAK - 07/07/2024 2:20 PM EST HPI: Historian of HPI: patient Brenda Segura is a 63 y.o. female who presents today to the Urgent Care with the following complaints and denials. Pt states I was seen last month and never got better. Pt took keflex and finished the full course. C/O Denies Symptom Comments [x] [] Dysuria [] [x] hematuria [x] [] Urinary frequency [] [x] Urinary incontinence [x] [] Urinary urgency [x] [] Genital itching [] [x] Genital discharge [] [x] Back pain [] [x] Abd pain Additional Comments: pt has not taken any OTC medications ROS: A complete system ROS was performed and negative aside from the pertinent positives noted in the HPI and PE. Visit Vitals BP 118/58 Pulse 83 Temp 97 F Wt 154 lb SpO2 99% BMI 24.12 kg/m Smoking Status Every Day BSA 1.82 m IH Testing: An In-House UA has been obtianed: Collected by clean catch REFERENCE RANGE Leukocytes: 3+ Nitrite: Negative Protein: Trace PH: 6.0 Blood: Negative Specific [place]: 1.030 Ketone: Negative Glucose: Negative Neg Neg Neg - Trace mg/dl 5.0-8.0 Neg 1.005-1.030 Neg Neg Physical Exam Vitals reviewed. Constitutional: General: She is not in acute distress. Appearance: Normal appearance. HENT: Head: Normocephalic. Nose: Nose normal. Mouth/Throat: Mouth: Mucous membranes are moist. Pharynx: Oropharynx is clear. Eyes: Extraocular Movements: Extraocular movements intact. Conjunctiva/sclera: Conjunctivae normal. Pupils: Pupils are equal, round, and reactive to light. Cardiovascular: Rate and Rhythm: Normal rate and regular rhythm. Pulses: Normal pulses. Heart sounds: Normal heart sounds. Pulmonary: Effort: Pulmonary effort is normal. No respiratory distress. Breath sounds: No wheezing, rhonchi or rales. Musculoskeletal: General: Normal range of motion. Cervical back: Normal range of motion and neck supple. Skin: General: Skin is warm and dry. Findings: No rash. Neurological: General: No focal deficit present. Mental Status: She is alert and oriented to person, place, and time. Psychiatric: Mood and Affect: Mood normal. 1. Dysuria Seen here 06/03/24. Placed on Keflex. Urine culture reviewed and + Group B strep. Keflex was susceptible. Patient reports, I never got better . Urinalysis is + for acute UTI. Will treat and send urine for culture. - URINALYSIS ANALYZER TEST - nitrofurantoin, macrocrystal-monohydrate, (Macrobid) 100 MG capsule; Take 1 capsule (100 mg) by mouth in the morning and 1 capsule (100 mg) before bedtime. Do all this for 7 days. Dispense: 14 capsule; Refill: 0 2. Acute cystitis without hematuria (Primary) Start the above medications as directed. Increase water intake, get plenty of rest. Advised patientthat the urine will be sent out for culture. May need to change the antibiotic based on the cultureresults. Cranberry juice ok. Avoid bath tubs and hot tubs, wipe front to back, avoid fragrance soaps in that area, urinate before and after intercourse if sexually active. Discussed if patient develops any N/V, fever/chills, or symptoms dramatically increase, the patient is to go to the ER. Otherwise follow up at our office if no improvement in one week. - nitrofurantoin, macrocrystal-monohydrate, (Macrobid) 100 MG capsule; Take 1 capsule (100 mg) by mouth in the morning and 1 capsule (100 mg) before bedtime. Do all this for 7 days. Dispense: 14 capsule; Refill: 0 - phenazopyridine (Pyridium) 100 MG tablet; Take 1 tablet (100 mg) by mouth 3 (three) times a day as needed for bladder spasms for up to 2 days Dispense: 6 tablet; Refill: 0 [id number] History of Present illness Narrative* Mahamed Acharya, DO - 06/22/2024 9:40 AM EDT Joe Segura is a 63 y.o. female Chief Complaint Follow-up 63-year-old female returns for 6-month follow-up and is doing well she denies any cardiovascular events or complaints or nitrate usage or hospitalizations. She is performing all her work-related activities at [employer] and at home and daily chores without any issues or events Unfortunately she continues smoking a pack a day and we counseled her for 5 minutes on tobacco cessation. 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 Vitals: 06/22/24 0953 BP: 150/82 BP Location: Right arm Patient Position: Sitting Pulse: 62 Weight: 69.3 kg (152 lb 12.8 oz) Height: 1.702 m (5' 7 ) Objective Physical Exam Constitutional: Appearance: Normal appearance. HENT: Nose: Nose normal. Neck: Vascular: No carotid bruit. Cardiovascular: Rate and Rhythm: Normal rate. Pulses: Normal pulses. Heart sounds: Normal heart sounds. Pulmonary: Effort: Pulmonary effort is normal. Abdominal: General: Bowel sounds are normal. Palpations: Abdomen is soft. Musculoskeletal: General: Normal range of motion. Cervical back: Normal range of motion. Right lower leg: No edema. Left lower leg: No edema. Skin: General: Skin is warm and dry. Neurological: General: No focal deficit present. Mental Status: She is alert. Psychiatric: Mood and Affect: Mood normal. Behavior: Behavior normal. Thought Content: Thought content normal. Judgment: Judgment normal. Allergies Eletriptan Current Medications Current Outpatient Medications: aspirin 81 mg chewable tablet, Chew 1 tablet (81 mg) once daily., Disp: , Rfl: atorvastatin (Lipitor) 80 mg tablet, Take 1 tablet (80 mg) by mouth once daily at bedtime., Disp: 90 tablet, Rfl: 3 FeroSuL tablet, Take 1 tablet (325 mg) by mouth once daily with breakfast., Disp: , Rfl: glimepiride (Amaryl) 4 mg tablet, Take 1 tablet (4 mg) by mouth 2 times a day., Disp: , Rfl: ixekizumab (Taltz Syringe) 80 mg/mL injection, Inject 1 mL (80 mg) under the skin every 28 (twenty-eight) days., Disp: , Rfl: lisinopril 10 mg tablet, Take 1 tablet (10 mg) by mouth once daily., Disp: 90 tablet, Rfl: 3 metFORMIN (Glucophage) 850 mg tablet, Take 1 tablet (850 mg) by mouth 2 times daily (morning and late afternoon)., Disp: , Rfl: metoprolol tartrate (Lopressor) 50 mg tablet, Take 1 tablet by mouth 2 times a day., Disp: 180 tablet, Rfl: 3 pioglitazone (Actos) 30 mg tablet, Take 1 tablet (30 mg) by mouth once daily., Disp: , Rfl: sertraline (Zoloft) 25 mg tablet, Take 1 tablet (25 mg) by mouth once daily., Disp: , Rfl: Assessment/Plan 1. 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Follow Up In Cardiology 2. S/P right coronary artery (RCA) stent placement 3. Primary hypertension 4. Mixed hyperlipidemia 5. Type 2 diabetes mellitus with other diabetic kidney complication 6. BMI 23.0-23.9, adult 7. Smoker 8. Old [place] (myocardial infarction) Scribe Attestation By signing my name below, I, Estephania Rodrigez LPN attest that this documentation has been prepared under the direction and in the presence of Dinora Acharya DO. Provider Attestation - Scribe documentation All medical record entries made by the Scribe were at my direction and personally dictated by me. Ihave reviewed the chart and agree that the record accurately reflects my personal performance of the history, physical exam, discussion and plan. documented in this [facility] Work Phone: [phone] 126-386010-30-2024 Instructions* Patient Instructions* Gisel Choudhary LPN - 06/22/2024 9:40 AM EDT Please bring all medicines, vitamins, and herbal supplements with you when you come to the office. Prescriptions will not be filled unless you are compliant with your follow up appointments or have a follow up appointment scheduled as per instruction of your physician. Refills should be requested at the time of your visit. documented in this [facility] Work Phone: [phone] 121-115710-25-2024 History of Present illness Narrative* Zahira Lundberg NP - 06/17/2024 9:00 AM EDT Images from the original note were not included. Brenda Segura is a 63 y.o. female presents with chief complaint of Annual Exam HPI: HPI Patient needs refill on all medication sent to [facility] mail service. Does not check blood sugars at home. Denies any signs/symptoms of hypoglycemia. Compliant with medication regimen. Denies any cardiac or resp. Symptoms. Feels her moods are good and bad, She is seeing a therapist every other week. Over the past 2 weeks, how often have you been bothered by any of the following problems? Little interest or pleasure in doing things: Several days Feeling down, depressed, or hopeless: Several days Trouble falling or staying asleep, or sleeping too much: Nearly every day Feeling tired or having little energy: Nearly every day Poor appetite or overeating: Not at all Feeling bad about yourself - or that you are a failure or have let yourself or your family down: Not at all Trouble concentrating on things, such as reading the newspaper or watching television: Not at all Moving or speaking so slowly that other people could have noticed? Or the opposite - being so fidgety or restless that you have been moving around a lot more than usual.: Nearly every day Thoughts that you would be better off or hurting yourself in some way: Not at all Patient Health Questionnaire-9 Score: 11 Over the last 2 weeks, how often have you been bothered by any of the following problems? Feeling nervous, anxious, or on edge: Nearly every day Not being able to stop or control worrying: Nearly every day Worrying too much about different things: Nearly every day Trouble relaxing: Nearly every day Being so restless that it is hard to sit still: Nearly every day Becoming easily annoyed or irritable: Not at all Feeling afraid as if something awful might happen: Not at all ALDAIR-7 Total Score: 15 SUBJECTIVE: MEDICATIONS: Current Outpatient Medications Medication Instructions aspirin 81 mg, Daily atorvastatin (LIPITOR) 80 mg, Oral, Daily ferrous sulfate (FE TABS) 325 mg, Oral, 2 times daily, Do not crush, chew, or split. glimepiride (AMARYL) 4 mg, Oral, Daily before breakfast Ixekizumab (Taltz) 80 MG/ML injection 1 ml Subcutaneous once monthly lisinopril 10 mg, Oral, Daily metFORMIN (GLUCOPHAGE) 850 mg, Oral, 2 times daily with meals, Hold until 05/02/23 per [facility] metoprolol tartrate (LOPRESSOR) 50 mg, 2 times daily nitroglycerin (NITROSTAT) 0.4 mg, Daily PRN pioglitazone (ACTOS) 30 mg, Oral, Every morning sertraline (Zoloft) 25 MG tablet TAKE 1 TABLET BY MOUTH IN THE MORNING GENERIC EQUIVALENT FOR ZOLOFT REVIEW OF SYMPTOMS: Review of Systems OBJECTIVE: Visit Vitals BP 130/80 (BP Location: Right arm, Patient Position: Sitting, BP Cuff Size: Adult) Pulse 73 Ht 5' 7 Wt 154 lb 12.8 oz SpO2 97% BMI 24.25 kg/m Smoking Status Every Day BSA 1.82 m Physical Exam Vitals reviewed. Constitutional: Appearance: Normal appearance. HENT: Head: Normocephalic and atraumatic. Nose: Nose normal. Mouth/Throat: Mouth: Mucous membranes are moist. Eyes: Pupils: Pupils are equal, round, and reactive to light. Cardiovascular: Rate and Rhythm: Normal rate and regular rhythm. Pulses: Normal pulses. Heart sounds: Normal heart sounds. Pulmonary: Effort: Pulmonary effort is normal. Breath sounds: Normal breath sounds. Musculoskeletal: Cervical back: Normal range of motion and neck supple. Right lower leg: No edema. Left lower leg: No edema. Skin: General: Skin is warm and dry. Capillary Refill: Capillary refill takes less than 2 seconds. Findings: No rash. Neurological: General: No focal deficit present. Mental Status: She is alert and oriented to person, place, and time. ASSESSMENT AND PLAN: Assessment/Plan Diagnoses and all orders for this visit: Mixed hyperlipidemia (CMS/HCC) -On a statin Primary hypertension ([facility]) - Comprehensive metabolic panel; Future - metoprolol tartrate (Lopressor) 50 MG tablet; Take 1 tablet (50 mg) by mouth in the morning and 1tablet (50 mg) before bedtime. - lisinopril 10 MG tablet; Take 1 tablet (10 mg) by mouth Daily -Discussed current management plan. Goal BP less then 130/80. Discussed heart healthy diet, increase fruits and vegetables, limit salt intake. Encouraged increase physical exercise, try to be as active as possible at least 150 mins per week. Importance of weight management with a goal BMI less then27 discussed. Discussed complications of uncontrolled blood pressure. Patient instructed to monitorBP's 1-2 times a week, keep a log, and bring to next visit. Barriers to care and medication compliance discussed. Patient voices understanding of meds. Type 2 diabetes mellitus with other diabetic kidney complication ([facility]) - Hemoglobin A1c; Future - Comprehensive metabolic panel; Future - metFORMIN (Glucophage) 850 MG tablet; Take 1 tablet (850 mg) by mouth in the morning and 1 tablet(850 mg) in the evening. Take with meals. Hold until 05/02/23 per [facility]. - glimepiride (Amaryl) 4 MG tablet; Take 1 tablet (4 mg) by mouth in the morning. Take before meals. -Diabetic protocols reviewed. Discussed and updated current management plan. Addressed barriers to care, diet, exercise plan and blood sugar testing. Education provided for medications. Goal A1C <7 and BP <130/80 for suboptimally controlled diabetes. I have encouraged patient to check feet regularly and to see ophthomololgist annually. I have discussed the need for regular testing and follow up. We will recheck an A1C every 6 months and microalbumin yearly. Discussed complications which could include blindness, heart disease and kidney disease. Iron deficiency anemia, unspecified iron deficiency anemia type - CBC and differential; Future - Iron + transferrin + TIBC; Future - ferrous sulfate (Fe Tabs) 325 (65 Fe) MG EC tablet; Take 1 tablet (325 mg) by mouth in the morning and 1 tablet (325 mg) before bedtime. Do not crush, chew, or split.. -On iron, check labs today in office Recurrent major depressive disorder, in partial remission (HCC) ([facility]) Orders: - sertraline (Zoloft) 25 MG tablet; Take 2 tablets (50 mg) by mouth Daily -Increase sertraline to 50mg daily. Reviewed importance of healthy diet and exercise, stress management, and social support. Type 2 diabetes mellitus with hyperglycemia, without long-term current use of insulin ([facility]) - pioglitazone (Actos) 30 MG tablet; Take 1 tablet (30 mg) by mouth in the morning. Type 2 diabetes mellitus with other diabetic kidney complication ([facility]) Orders: - Hemoglobin A1c; Future - Comprehensive metabolic panel; Future - metFORMIN (Glucophage) 850 MG tablet; Take 1 tablet (850 mg) by mouth in the morning and 1 tablet(850 mg) in the evening. Take with meals. - glimepiride (Amaryl) 4 MG tablet; Take 1 tablet (4 mg) by mouth in the morning. Take before meals. Primary hypertension ([facility]) Orders: - Comprehensive metabolic panel; Future - metoprolol tartrate (Lopressor) 50 MG tablet; Take 1 tablet (50 mg) by mouth in the morning and 1tablet (50 mg) before bedtime. - lisinopril 10 MG tablet; Take 1 tablet (10 mg) by mouth Daily documented in this [facility]10-11-2024 History of Present illness Narrative* Mateo Hunter NP - 06/03/2024 3:25 PM EDT HPI: Historian of HPI: patient Brenda Segura is a 63 y.o. female who presents today to the Urgent Care with the following complaints and denials which have been present for 3 day(s) C/O Denies Symptom Comments [x] [] Dysuria [] [x] hematuria [x] [] Urinary frequency [] [x] Urinary incontinence [] [x] Urinary urgency [] [] Genital itching [] [x] Genital discharge [] [x] Back pain [] [x] Abd pain Additional Comments: pt has not taken any OTC medications ROS: A complete system ROS was performed and negative aside from the pertinent positives noted in the HPI and PE. IH Testing: An In-House UA has been obtianed: Collected by clean catch REFERENCE RANGE Leukocytes: Negative Nitrite: Negative Protein: Trace PH: 6.5 Blood: Negative Specific [place]: 1.020 Ketone: Negative Glucose: Negative Neg Neg Neg - Trace mg/dl 5.0-8.0 Neg 1.005-1.030 Neg Neg Examination General Examination: General examination: alert, oriented, normal affect, well-appearing, in no acute distress, well developed, well nourished. Head: normocephalic, atraumatic Eyes: sclera non-icteric Skin: normal Heart: no murmurs, regular rate and rhythm, S1, S2 normal Lungs: clear to auscultation bilaterally, good air movement, no wheezes, rales, rhonchi Abdomen: no suprapubic tenderness, no hepatosplenomegaly, no masses palpable. Musculoskeletal: FROM Extremities: no edema, no cyanosis Neurologic: nonfocal Psych: alert, oriented, cognitive function intact, cooperative with exam. 1. Dysuria Discussed. - URINALYSIS ANALYZER TEST - URINARY TRACT INFECTION (HTRX) 2. Acute cystitis without hematuria Diagnosis and treatment discussed. Rest and push fluids. Medication instructions and potential s/e discussed. To ER for fever, chills, nausea, vomiting, or severe back/abd pain. Follow-up with PCP ifno improvement in 3 days. Discussed urinalysis results. Urine sent for culture. Will call with results when available - cephalexin (Keflex) 500 MG capsule; Take 1 capsule (500 mg) by mouth in the morning and 1 capsule(500 mg) before bedtime. Do all this for 5 days. Dispense: 10 capsule; Refill: 0 - phenazopyridine (Pyridium) 200 MG tablet; Take 1 tablet (200 mg) by mouth 3 (three) times a day as needed for bladder spasms for up to 2 days Dispense: 6 tablet; Refill: 0 - URINARY TRACT INFECTION (HTRX) documented [facility] this [id number] Discharge instructions Patient Education 05/02/2024 08:27:27 Urethral Stricture Urethral Stricture Urethral stricture is when the tube that drains pee (urine) from the bladder out of the body (urethra) becomes too narrow. The urethra can become narrow because of scar tissue, infection, surgery, diana injury. This can make it difficult to pee (urinate). In females, the urethra opens above the vaginal opening. In males, the urethra opens at the tip of the penis, and the urethra is much longer than it is in females. Because of the length of the male urethra, urethral stricture is much more common in males. What are the causes? In males and females, common causes of urethral stricture include: Urinary tract infection (UTI). Sexually transmitted infection (STI). Using a soft tube in the urethra to drain pee from the bladder (urinary catheter). Urinary tract surgery. In males, common causes of urethral stricture include: A severe injury to the pelvis. Prostate surgery. Injury to the penis. In many cases, the cause of urethral stricture is not known. What increases the risk? You are more likely to develop this condition if you: Are male. Males who have had prostate surgery are at risk of developing this condition. Use a urinary catheter. Have had urinary tract surgery. What are the signs or symptoms? The main symptom of this condition is trouble peeing. This may cause decreased pee flow, dribbling,or spraying of pee. Other symptom of this condition may include: Frequent UTIs. Blood in the pee. Pain when peeing. Swelling of the penis in males. Not being able to pee. How is this diagnosed? This condition may be diagnosed based on: Your medical history and a physical exam. Tests of your pee to check for infection or bleeding. X-rays. Ultrasound. Retrograde urethrogram. With this test, a dye is injected into the urethra and then an X-ray is taken. Urethroscopy. This is when a thin tube with a light and camera on the end (urethroscope) is used tolook at the urethra. A CT scan or MRI. How is this treated? This condition is treated with surgery or other procedures. The type of surgery that you have depends on the severity of your condition. You may have: Urethral dilation. In this procedure, the narrow part of the urethra is stretched open (dilated) with dilating instruments or a small balloon. Urethrotomy. In this procedure, a urethroscope is placed into the urethra, and the narrow part of the urethra is cut open with a surgical blade or laser inserted through the urethroscope. Urethroplasty. In this procedure, an incision is made in the urethra and the narrow part is removed. Then, the urethra is reconstructed. Follow these instructions at home: Take [id number] and prescription medicines only as told by your health care provider. If you were prescribed antibiotics, take them as told by your provider. Do not stop using the antibiotic even if you start to feel better. Drink enough fluid to keep your pee pale yellow. Keep all follow-up visits. Your provider will check your healing and adjust your treatment plan as needed. Contact a health care provider if: You have frequent peeing or you are only peeing small amounts often. You feel the need to pee urgently. You have pain or burning when you pee. Your pee smells bad or unusual. Your pee is bloody or cloudy. You have pain in your lower abdomen or back. Your genital area is swollen, bruised, or discolored. This includes: ?The penis, scrotum, and inner thighs for males. ?The outer genital organs (vulva) and inner thighs for females. You have a fever. You develop swelling in your legs. Get help right away if: You cannot pee. You have trouble breathing. These symptoms may be an emergency. Get help right away. Call 911. Do not wait to see if the symptoms will go away. Do not drive yourself to the hospital. This information is not intended to replace advice given to you by your health care provider. Make sure you discuss any questions you have with your health care provider. Document Revised: 06/04/2023 Document Reviewed: 06/04/2023 [employer] Patient Education 2023 [employer]. Follow Up Care 2023 11:25:29 With:MITZI UNGER, Joe Rosen, URL Address: [facility] [address] [place] [address]- When: Unknown [facility] 09-09-2024 NotePatient Education Urology Urethral Stricture Urethral stricture is when the tube that drains pee (urine) from the bladder out of the body (urethra) becomes too narrow. The urethra can become narrow because of scar tissue, infection, surgery, diana injury. This can make it difficult to pee (urinate). In females, the urethra opens above the vaginal opening. In males, the urethra opens at the tip of the penis, and the urethra is much longer than it is in females. Because of the length of the male urethra, urethral stricture is much more common in males. What are the causes? In males and females, common causes of urethral stricture include: ? Urinary tract infection (UTI). ? Sexually transmitted infection (STI). ? Using a soft tube in the urethra to drain pee from the bladder (urinary catheter). ? Urinary tract surgery. In males, common causes of urethral stricture include: ? A severe injury to the pelvis. ? Prostate surgery. ? Injury to the penis. In many cases, the cause of urethral stricture is not known. What increases the risk? You are more likely to develop this condition if you: ? Are male. Males who have had prostate surgery are at risk of developing this condition. ? Use a urinary catheter. ? Have had urinary tract surgery. What are the signs or symptoms? The main symptom of this condition is trouble peeing. This may cause decreased pee flow, dribbling,or spraying of pee. Other symptom of this condition may include: ? Frequent UTIs. ? Blood in the pee. ? Pain when peeing. ? Swelling of the penis in males. ? Not being able to pee. How is this diagnosed? This condition may be diagnosed based on: ? Your medical history and a physical exam. ? Tests of your pee to check for infection or bleeding. ? X-rays. ? Ultrasound. ? Retrograde urethrogram. With this test, a dye is injected into the urethra and then an X-ray is taken. ? Urethroscopy. This is when a thin tube with a light and camera on the end (urethroscope) is used to look at the urethra. ? A CT scan or MRI. How is this treated? This condition is treated with surgery or other procedures. The type of surgery that you have depends on the severity of your condition. You may have: ? Urethral dilation. In this procedure, the narrow part of the urethra is stretched open (dilated) with dilating instruments or a small balloon. ? Urethrotomy. In this procedure, a urethroscope is placed into the urethra, and the narrow part ofthe urethra is cut open with a surgical blade or laser inserted through the urethroscope. ? Urethroplasty. In this procedure, an incision is made in the urethra and the narrow part is removed. Then, the urethra is reconstructed. Follow these instructions at home: ? Take [id number] and prescription medicines only as told by your health care provider. ? If you were prescribed antibiotics, take them as told by your provider. Do not stop using the antibiotic even if you start to feel better. ? Drink enough fluid to keep your pee pale yellow. ? Keep all follow-up visits. Your provider will check your healing and adjust your treatment plan as needed. Contact a health care provider if: ? You have frequent peeing or you are only peeing small amounts often. ? You feel the need to pee urgently. ? You have pain or burning when you pee. ? Your pee smells bad or unusual. ? Your pee is bloody or cloudy. ? You have pain in your lower abdomen or back. ? Your genital area is swollen, bruised, or discolored. This includes: ? The penis, scrotum, and inner thighs for males. ? The outer genital organs (vulva) and inner thighs for females. ? You have a fever. ? You develop swelling in your legs. Get help right away if: ? You cannot pee. ? You have trouble breathing. These symptoms may be an emergency. Get help right away. Call 911. ? Do not wait to see if the symptoms will go away. ? Do not drive yourself to the hospital. This information is not intended to replace advice given to you by your health care provider. Make sure you discuss any questions you have with your health care provider. Document Revised: 06/04/2023 Document Reviewed: 06/04/2023 [employer] Patient Education ? 2023 [employer] 2023 Hospital Discharge instructions Patient Education 2023 11:22:58 EU - Cystoscopy with Urethral Dilation Discharge Instructions (CUSTOM) Cystoscopy with Urethral Dilation Voiding after the procedure: there may be some pain, urethral bleeding, burning, urgency, frequencyand blood tinged urine following the procedure. These symptoms usually resolve within 2-5 days. Drink the amount of fluid it takes to keep the urine pink to yellow or clear in color. Drinking enough water and fluids will help to ease any discomfort after your procedure. If you are having problems that seem out of the ordinary, please call. If unable to contact your physician and you feel it is an emergency, go to the nearest emergency room or call 911 Diet you may resume your normal diet. Activity you may resume your normal activities Call if you have a fever over 100 degrees Follow Up Care 12/02/2023 10:52:42 With:Joe CARTAGENA Address: [address] [place] [address] [place] [address]- Business (1) When:04/30/2024 11:22:46 [facility]05-07-2024 Note [id number] [facility] 2023 NoteCustom Cystoscopy with Urethral Dilation ? Voiding after the procedure: there may be some pain, urethral bleeding, burning, urgency, frequency and blood tinged urine following the procedure. These symptoms usually resolve within 2-5 days. Drink the amount of fluid it takes to keep the urine pink to yellow or clear in color. Drinking enough water and fluids will help to ease any discomfort after your procedure. ? If you are having problems that seem out of the ordinary, please call. ? If unable to contact your physician and you feel it is an emergency, go to the nearest emergency room or call 911 ? Diet ? you may resume your normal diet. ? Activity ? you may resume your normal activities ? Call if you have a fever over 100 degreesH[facility] History of Present illness Narrative* Mahamed Acharya, - 12/17/2023 10:30 AM EDT Subjective Brenda Segura is a 62 y.o. female Chief Complaint Follow-up 62-year-old female returns for follow-up she is doing well she denies any cardiovascular events, hospitalizations or nitrate usage. 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 She remains on DAPT and appropriate GDMT as reviewed Recommendations, continue current therapies and follow-up in 6 months Review of Systems All other systems reviewed and are negative. Vitals: 12/17/23 1021 BP: 124/76 BP Location: Right arm Patient Position: Sitting Pulse: 72 Weight: 68.5 kg (151 lb) Height: 1.702 m (5' 7 ) Objective Physical Exam Constitutional: Appearance: Normal appearance. HENT: Nose: Nose normal. Neck: Vascular: No carotid bruit. Cardiovascular: Rate and Rhythm: Normal rate. Pulses: Normal pulses. Heart sounds: Normal heart sounds. Pulmonary: Effort: Pulmonary effort is normal. Abdominal: General: Bowel sounds are normal. Palpations: Abdomen is soft. Musculoskeletal: General: Normal range of motion. Cervical back: Normal range of motion. Right lower leg: No edema. Left lower leg: No edema. Skin: General: Skin is warm and dry. Neurological: General: No focal deficit present. Mental Status: She is alert. Psychiatric: Mood and Affect: Mood normal. Behavior: Behavior normal. Thought Content: Thought content normal. Judgment: Judgment normal. Allergies Eletriptan Current Medications Current Outpatient Medications: aspirin 81 mg chewable tablet, Chew 1 tablet (81 mg) once daily., Disp: , Rfl: atorvastatin (Lipitor) 80 mg tablet, Take 1 tablet (80 mg) by mouth once daily at bedtime., Disp: ,Rfl: clopidogrel (Plavix) 75 mg tablet, Take 1 tablet (75 mg) by mouth once daily., Disp: , Rfl: glimepiride (Amaryl) 4 mg tablet, Take 1 tablet (4 mg) by mouth 2 times a day., Disp: , Rfl: hydrOXYzine pamoate (Vistaril) 25 mg capsule, Take 1 capsule (25 mg) by mouth once daily., Disp: , Rfl: ixekizumab (Taltz Syringe) 80 mg/mL injection, Inject 1 mL (80 mg) under the skin every 28 (twenty-eight) days., Disp: , Rfl: lisinopril 10 mg tablet, Take 1 tablet (10 mg) by mouth once daily., Disp: , Rfl: metFORMIN (Glucophage) 850 mg tablet, Take 1 tablet (850 mg) by mouth 2 times a day with meals., Disp: , Rfl: metoprolol tartrate (Lopressor) 50 mg tablet, Take 1 tablet by mouth twice a day., Disp: , Rfl: nitrofurantoin (Macrodantin) 100 mg capsule, Take 1 capsule (100 mg) by mouth once daily at bedtime., Disp: , Rfl: pioglitazone (Actos) 30 mg tablet, Take 1 tablet (30 mg) by mouth once daily., Disp: , Rfl: semaglutide (Rybelsus) 7 mg tablet, Take 1 tablet (7 mg) by mouth once daily., Disp: , Rfl: sertraline (Zoloft) 25 mg tablet, Take 1 tablet (25 mg) by mouth once daily., Disp: , Rfl: Assessment/Plan 1. 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 Primary hypertension 3. Mixed hyperlipidemia 4. S/P right coronary artery (RCA) stent placement 5. Type 2 diabetes mellitus with other diabetic kidney complication (Multi) 6. Old [place] (myocardial infarction) 7. BMI 23.0-23.9, adult 8. Former smoker Scribe Attestation By signing my name below, Kellen Marcus LPN , Scribdayana attest that this documentation has been prepared under the direction and in the presence of Dinora Acharya DO. Provider Attestation - Scribe documentation All medical record entries made by the Scribe were at my direction and personally dictated by me. Ihave reviewed the chart and agree that the record accurately reflects my personal performance of the history, physical exam, discussion and plan. documented in this [facility] Work Phone: [phone]) 303-755004-25-2024 Instructions* Patient Instructions* Kellen Treviño LPN - 12/17/2023 10:30 AM EDT Please bring all medicines, vitamins, and herbal supplements with you when you come to the office. Prescriptions will not be filled unless you are compliant with your follow up appointments or have a follow up appointment scheduled as per instruction of your physician. Refills should be requested at the time of your visit. BMI was above normal measurement. Current weight: 68.5 kg (151 lb) Weight change since last visit (-) denotes wt loss 12 lbs Weight loss needed to achieve BMI 25: -8.3 Lbs Weight loss needed to achieve BMI 30: -40.1 Lbs Provided instructions on dietary changes Provided instructions on exercise Advised to Increase physical activity. documented in this [facility] Work Phone: 1(499) 923-993104-02-2024 Hospital Discharge instructions Patient Education 11/24/2023 10:26:34 Overactive Bladder, Adult Overactive Bladder, Adult Overactive bladder is a condition in which a person has a sudden and frequent need to urinate. A person might also leak urine if he or she cannot get to the bathroom fast enough (urinary incontinence). Sometimes, symptoms can interfere with work or social activities. What are the causes? Overactive bladder is associated with poor nerve signals between your bladder and your brain. Your bladder may get the signal to empty before it is full. You may also have very sensitive muscles thatmake your bladder squeeze too soon. This condition may also be caused by other factors, such as: Medical conditions: ?Urinary tract infection. ?Infection of nearby tissues. ?Prostate enlargement. ?Bladder stones, inflammation, or tumors. ?Diabetes. ?Muscle or nerve weakness, especially from these conditions: ?A spinal cord injury. ?Stroke. ?Multiple sclerosis. ?Parkinson's disease. Other causes: ?Surgery on the uterus or urethra. ?Drinking too much caffeine or alcohol. ?Certain medicines, especially those that eliminate extra fluid in the body (diuretics). ?Constipation. What increases the risk? You may be at greater risk for overactive bladder if you: Are an older adult. Smoke. Are going through menopause. Have prostate problems. Have a neurological disease, such as stroke, dementia, Parkinson's disease, or multiple sclerosis (MS). Eat or drink alcohol, spicy food, caffeine, and other things that irritate the bladder. Are overweight or obese. What are the signs or symptoms? Symptoms of this condition include a sudden, strong urge to urinate. Other symptoms include: Leaking urine. Urinating 8 or more times a day. Waking up to urinate 2 or more times overnight. How is this diagnosed? This condition may be diagnosed based on: Your symptoms and medical history. A physical exam. Blood or urine tests to check for possible causes, such as infection. You may also need to see a health care provider who specializes in urinary tract problems. This is called a urologist. How is this treated? Treatment for overactive bladder depends on the cause of your condition and whether it is mild or severe. Treatment may include: Bladder training, such as: ?Learning to control the urge to urinate by following a schedule to urinate at regular intervals. ?Doing Kegel exercises to strengthen the pelvic floor muscles that support your bladder. Special devices, such as: ?Biofeedback. This uses sensors to help you become aware of your body's signals. ?Electrical stimulation. This uses electrodes placed inside the body (implanted) or outside the body. These electrodes send gentle pulses of electricity to strengthen the nerves or muscles that control the bladder. ?Women may use a plastic device, called a pessary, that fits into the vagina and supports the bladder. Medicines, such as: ?Antibiotics to treat bladder infection. ?Antispasmodics to stop the bladder from releasing urine at the wrong time. ?Tricyclic antidepressants to relax bladder muscles. ?Injections of botulinum toxin type A directly into the bladder tissue to relax bladder muscles. Surgery, such as: ?A device may be implanted to help manage the nerve signals that control urination. ?An electrode may be implanted to stimulate electrical signals in the bladder. ?A procedure may be done to change the shape of the bladder. This is done only in very severe cases. Follow these instructions at home: Eating and drinking Make diet or lifestyle changes recommended by your health care provider. These may include: ?Drinking fluids throughout the day and not only with meals. ?Cutting down on caffeine or alcohol. ?Eating a healthy and balanced diet to prevent constipation. This may include: ?Choosing foods that are high in fiber, such as beans, whole grains, and fresh fruits and vegetables. ?Limiting foods that are high in fat and processed sugars, such as fried and sweet foods. Lifestyle Lose weight if needed. Do not use any products that contain nicotine or tobacco. These include cigarettes, chewing tobacco, and vaping devices, such as e-cigarettes. If you need help quitting, ask your health care provider. General instructions Take [id number]-[id number] and prescription medicines only as told by your health care provider. If you were prescribed an antibiotic medicine, take it as told by your health care provider. Do notstop taking the antibiotic even if you start to feel better. Use any implants or pessary as told by your health care provider. If needed, wear pads to absorb urine leakage. Keep a log to track how much and when you drink, and when you need to urinate. This will help your health care provider monitor your condition. Keep all follow-up visits. This is important. Contact a health care provider if: You have a fever or chills. Your symptoms do not get better with treatment. Your pain and discomfort get worse. You have more frequent urges to urinate. Get help right away if: You are not able to control your bladder. Summary Overactive bladder refers to a condition in which a person has a sudden and frequent need to urinate. Several conditions may lead to an overactive bladder. Treatment for overactive bladder depends on the cause and severity of your condition. Making lifestyle changes, doing Kegel exercises, keeping a log, and taking medicines can help with this condition. This information is not intended to replace advice given to you by your health care provider. Make sure you discuss any questions you have with your health care provider. Document Revised: 04/29/2021 Document Reviewed: 04/29/2021 [employer] Patient Education 2022 [employer]. Follow Up Care 08/14/2023 14:19:20 With:JERICA MOREIRA, CHLOÉ Anne, URL Address: [address] [place] [address]. [place] [address] When: Unknown [facility] 04-02-2024 NoteChief Complaint Referral for recurrent UTI HPI Staff Evaluation requested by Dr Bonita Santos due to recurrent UTI. Pt is a new pt. Never before seen in our office (Verified on DA) A1C 09/15/23- 6.3 CMP 07/02/23- BUN 21 Crea 1.09 GFRe 57.084 C&S 09/07/22- >100k Strep agalactiae 02/17/23- Strep agalactiae 03/06/23- <9k mixed skin contaminants 04/28/23- 40k mixed skin contaminants 06/18/23- <9k mixed skin contaminants 07/02/23-<9k mixed skin contaminants NEG UA 12/15/23 Dysuria: no Incomplete bladder emptying: occasionally, 0mL Hematuria: no Frequency: every 2 hours Urgency: most of the time Nocturia: Pt. states occasionally every hour or every 2 hours Stream: good stream Post void dripping: no Wearing pads/ Depends: yes, liner Urge incontinence: no Stress incontinence: with coughing Incontinence without Sensory Awareness: no Abdominal pain: no Flank pain: no History of Present Illness Tests Reviewed: Reviewed UA. I have reviewed the previous health record information and history for this patient from Dr Bonita Santos I have reviewed and verified the staff HPI to be accurate for this encounter. There have been no associated fever, chills, flank pain, or blood in the urine. Denies any urinary infections since last encounter. Review of Systems PHQ Score Initial Depression Screen Score: 0 SCORE no fever, chills, malaise, myalgia. no rash/lesions. no chest pain, palpitations, or SOB. no abdominal pain, nausea, vomiting. no unilateral calf swelling, redness, pain Physical Exam Vitals & Measurements HR: 68(Peripheral) RR: 18 BP: 135/60 HT: 67 in HT: 170 cm WT: 66 kg WT: 145.2 lb BMI: 22.84 General: nontoxic, NAD Mouth: moist mucosa Lungs: normal respiratory effort Cardio: regular rate, good distal perfusion Abdomen: nondistended, no suprapubic distention or tenderness, no CVA tenderness Neurologic: Grossly normal Skin: No rashes or suspicious lesions Assessment/Plan CMP 07/02/23- BUN 21 Crea 1.09 GFRe 57.084 1. Urethral stricture (N35.919: Unspecified urethral stricture, male, unspecified site) PVR today 0ml C&S 09/07/22- >100k Strep agalactiae 02/17/23- Strep agalactiae 03/06/23- <9k mixed skin contaminants 04/28/23- 40k mixed skin contaminants 06/18/23- <9k mixed skin contaminants 07/02/23-<9k mixed skin contaminants NEG UA 12/15/23 pt reports she typically develops burning w urination and that is what prompts urine check. has been treated w multiple rounds of abx, doesn't always change the sx. Discussed w/pt that previous C&S results do not show true UTI - mostly just contamination/nl eddie. suspect sx may be caused by stricture instead. Will schedule Cysto with UD. The procedure risks, benefits, details, and treatment alternatives have been discussed with the patient. These include bleeding, infection, recurrent scar in over 50%, need for repeat dilation or other procedures, no symptom relief with dilation, among others. Full informed consent has been obtained. Will order Local anesthesia. -cysto/UD. f/u w me 6 wks later in [place] Ordered: E&M of New Patient Moderate 45-59 Min 59213 2. Vaginal dryness (N89.8: Other specified noninflammatory disorders of vagina) c/o pain w intercourse due to vaginal dryness. Will start Estrace Cream therapy. Discussed the medication side effects, and the patient will monitor closely for these, as well as for symptom improvement. If severe side effects occur, the medication should be stopped and the office notified. -est cream rx sent Ordered: E&M of New Patient Moderate 45-59 Min 75792 3. Mixed incontinence urge and stress (N39.46: Mixed incontinence) c/o severe urgency, frequency, UUI at least once per day, also some JEAN PIERRE -Leaking w/coughing. BBSQ 22 Does drink coffee, tea & soda. Discussed reduction of bladder irritants. Pt education provided. -Will readdress after Cysto/UD if sx do not improve. Ordered: E&M of New Patient Moderate 45-59 Min 32106 4. Diabetes (E11.9: Type 2 diabetes mellitus without complications) A1C 09/15/23- 6.3 Metformin 850mg BID therapy. well controlled, likely not contributing to urinary sx. Ordered: E&M of New Patient Moderate 45-59 Min 47229 Orders: estradiol topical, See Instructions, 42.5 gm, Refill(s) 0, Apply pea sized amount vaginally [id number], then 3x/wk there after., [id number], 170, cm, 11/24/23 9:34:00 EDT, Height/Length Dosing, 66, kg, 11/24/23 9:34:00 EDT, Weight Dosing 02165 Measure Post Void residual urine and/or bladder capacity by US- non-imaging Body Mass Index (BMI) documented 3008F Current tobacco smoker 1034F Depression Screening Negative 3352F Influenza immunization status assessed 1030F Medication list documented in medical record 1159F Most recent diastolic blood pressure <80 mm Hg 3078F Review of all meds by a prescribing practitioner or clinical pharmacist documented in EHR 1160F Systolic BP <130 mm Hg (Most Recent) 3074F Urnls Di (more content not included)...[facility]:Result Comment: Electronically Signed By: CHLOÉ PIZANO PA-C\.br\Date and Time Signed: 11/23/2410:25 EDT\.br\Electronically Co-Signed By: Danuta Rodriguez MA\.br\Date and Time Co-Signed: 11/24/23 10:46 [id number] Evaluation note* Encounter Date Diagnosis Assessment Notes Treatment Notes Treatment Clinical Notes May, Dysuria (ICD-10 - R30.0) May, Acute cystitis without hematuria (ICD-10 - N30.00) Reviewed UA, will treat patient for UTI today. Instructed patient to take antibiotic as prescribed, take with food, complete entire course of therapy even if feeling better. Allergies and recent antibiotic use was reviewed with patient. Pt to take pyridium as prescribed for urinary discomfort, advised patient that it will turn urine orange, explained to patient the importance of not taking longer then 2 days. Advised patient urine culture was sent today and we will call with her results if antibiotic needs changed. Patient instructed to push fluids. Patient symptoms should improve in the next 24-48 hours, if symptoms persist follow up with PCP or UC. Immediate eval by ER if back or flank pain, blood in urine, fever, chills, N/V, or any other concerning symptoms. Patient verbalizes understanding and is agreeable to treatment plan. [facility] Other 09-07-2023 Hospital Discharge instructions Additional Instructions DISCHARGE INSTRUCTIONS FOR ANGIOPLASTY/CORONARY/PERIPHERAL/STENT IMPLANT FOR ADULT ANTICOAGULATION -Since the greatest risk of a blood clot forming with the stent occurs in the first 2-3 weeks after implantation, you will need to take anticoagulants for at least 12-18 months. ANTICOAGULATION MEDICATION Aspirin 81mg once a day, Ticagrelor (Brilinta) 90mg twice a day STATIN MEDICATION Atorvastatin (Lipitor) 80 mg Drug-Eluting Stent (XAVIER) DO NOT discontinue Brilinta/Aspirin during the first few months regardless of what you are advised by your family doctor or pharmacist, without first calling the nurse recruiter who implanted the stent. If you require pain relief during this time, please take only ACETAMINOPHEN (TYLENOL)- NO additional aspirin or ibuprofen. DISCHARGE ACTIVITIES ARE FOLLOWS: First week after discharge: -Take it easy at home, no strenuous activity. -Do not lift or pull objects over 10-15 pounds, including children, and groceries for four weeks. If puncture site is at wrist do NOT lift more than three pounds for three days. - May walk up stairs. -May shower. -No excessive scrubbing of the affected site (groin). -May ride in car. -May resume sexual intercourse after 1-2 weeks. -No MRI for 12 days. -May drive in 4-7 days. -If puncture site is at the wrist do not manipulate the wrist for 24 hours, and no soaking wrist for three days. Second Week: -May take a bath -May start walking 3 times a week for 15-20 minutes at a leisurely pace. You should be able to carry on a conversation comfortably without feeling winded. -No strenuous activity as in jogging, running, weight lifting, stair steppers, etc. until the nurse recruiter approves these activities. Check with the nurse recruiter on your first follow-up visit. CALL YOUR PHYSICIAN at [phone]: -If bleeding should occur from the catheter insertion site- apply pressure to the site then immediately call us. -Report any fever, redness, drainage, increased swelling, or firmness at the catheter insertion site. Some bruising or slight swelling may be present at the time of discharge. -Should arm or leg become cold, numb, white, or blue, contact the nurse recruiter immediately. -IF you should experience episodes of angina, e.g. chest discomfort, heaviness, tightness, pressure burning with or without radiation to the neck, jaw, arms or back- use 1 Nitrostat tablet under your tongue every 5-10 minutes and up to three tablets. IF NO RELIEF, CALL 911 or GO TO THE NEAREST EMERGENCY ROOM. -Please notify our office if you have recurrent angina. -[Cardiac Rehab Education Provided. Participation in the Cardiopulmonary Rehabilitation program is recommended. Please call Central Scheduling at [phone] to schedule your appointment.] The attending nurse recruiter or [facility] nurse clinician should provide you with specific instructions regarding activity, diet, medications, and further follow up for you. Follow the medication instructions provided on your discharge. If the dosages and instructions on this sheet differ from the dosage and instructions on the bottle, follow the instructions on the bottle. [facility] is not responsible for incorrect prescription information provided by the patient during their visit. Do not stop your medications without consulting your health care provider. Please take the list with you to your next doctor's appointment.[facility] Work Phone: 1(436) 201-271009-07-2023 Miscellaneous Notes* Telephone Encounter - Gretta Gordon - 04/30/2023 2:00 PM EDT Pt's insurance is [id number]; created [facility] referral which requires financial clearance prior to scheduling. * Telephone Encounter - Francie Buenrostro MA - 04/21/2023 9:52 AM EDT Received referral to Cardiology for PSVT and records from [facility]. Sent to scheduling and also sent records of scanning. [facility] Discharge summary Author Simone Martinez [facility] April 30, 2023 4:08pm Note Date/Time April 30, 2023 9:37am [facility] [address] [place] [address] Discharge Summary Signed Patient: Brenda Segura MR#: [id number] : 1960 Acct:[id number] Age/Sex: 62 / F Adm Date: 3 Loc: Room: [address] [place] [address]: Simone Martinez DO Copies to: Simone Martinez, DO Annabel Morales DO~ Providers Date of Discharge: 04/30/23 Discharging Provider: Simone Martinez Primary Care Provider: Bonita Santos Consults: 04/28/23 20:29 Consult to Cardiology Routine Discharge Diagnosis (1) Acute coronary syndrome: (2) Atherosclerotic cardiovascular disease: (3) Diabetes: (4) HTN (hypertension): (5) Hyperlipemia: (6) Former tobacco use: Final Diagnosis Final Discharge Diagnosis: Aborted STEMI that occurred and then resolved while she was on route to the hospital. New finding of atherosclerotic coronary artery disease with 30 to 40% tubular stenosis in the mid circumflex coronary artery. Acute coronary syndrome due to 80% stenosis of the right coronary artery, treated with drug-eluting stent during cardiac catheterization on 04/29/2023. Diabetes mellitus type 2, with hyperglycemia, uncontrolled with hemoglobin A1c of 8.9. Hypertension. Dyslipidemia. History of smoking in the past. Summary Hospital Course Hospital course: This is a 62-year-old woman who has been having problems with chest pain over the last few weeks. She had undergone outpatient work-up and [facility]. She had an episode of chest pain and was on the way to the emergency room here [facility] when an EKG showed ST segment elevation. By time she arrived to the emergency room a twelve-lead EKG did not show any acute ST segment elevation. She was placed on a heparin infusion on the ACS protocol and cardiology was contacted. Before the cardiac catheterization her troponins were normal, and 3.8, 3.9, 3.7,and 3.2. She was taken for the cardiac catheterization which did find a two-vessel coronary artery disease and 1 drug-eluting stent was placed into the right coronary artery for the 80% atherosclerotic lesion. She tolerated this procedure well. In the outpatient setting she will need additional close monitoring of her diabetes because her hemoglobin A1c is above the target at 8.9. Lipid panel here showed a triglycerides of 71, total cholesterol 138, LDL cholesterol of 71, and HDL cholesterol of 53. While she was here blood pressures are fairly well controlled at 121/71, 136/73,and her highest blood pressures were 141/69. On the outpatient basis she should have close follow-up with her primary care physician regarding her diabetes and can be enrolled in a comprehensive program to include cardiac rehab at the discretion of the cardiology group. Status at Discharge Functional status at discharge: independent ambulation Overall status at discharge: patient is progressing back to baseline Time Spent with Patient Time spent providing/coordinating discharge services (# min): 33 Surgeries and Procedures Operation Date: 04/29/23 15:00 Actual Procedures p CL LHC & COR Angio - W Huang Acharya DO p CL Stent 1st Vessel RCA XAVIER - W Huang Acharya DO Diagnostic Studies Completed and Pending Studies Pending studies at discharge: 04/28/23 19:30 Urine Culture Stat 05/01/23 05:00 Basic Metabolic Panel [CHEM] IN AM Complete Blood Count Auto Diff IN AM 05/02/23 05:00 Basic Metabolic Panel [CHEM] IN AM Complete Blood Count Auto Diff IN AM 05/03/23 05:00 Basic Metabolic Panel [CHEM] IN AM Complete Blood Count Auto Diff IN AM 05/04/23 05:00 Basic Metabolic Panel [CHEM] IN AM Complete Blood Count Auto Diff IN AM 05/05/23 05:00 Basic Metabolic Panel [CHEM] IN AM Complete Blood Count Auto Diff IN AM 05/06/23 05:00 Basic Metabolic Panel [CHEM] IN AM Complete Blood Count Auto Diff IN AM 05/07/23 05:00 Basic Metabolic Panel [CHEM] IN AM Complete Blood Count Auto Diff IN AM 05/08/23 05:00 Basic Metabolic Panel [CHEM] IN AM Complete Blood Count Auto Diff IN AM Preliminary micro results at discharge 04/28/23 19:30 Urine Culture - Preliminary Urine - Clean-Voided Midstream Labs on day of discharge: 04/30/23 06:45: POC Glucose 127, POC Glucose Comment Glu2: cleaned meter 04/30/23 04:14: Troponin I High Sens 42.2 H 04/30/23 04:14: PHA Creatinine Clear 72.72, Sodium 140, Potassium 4.2, Chloride 108 H, Carbon Dioxide 24.8, Anion Gap 11.4, BUN 14, Creatinine 0.77, Est GFR (CKD- EPI) > 60.0, Glucose 142 H, Calcium 9.0 04/30/23 04:14: Corrected WBC 8.8, Uncorrected WBC Count 8.8, RBC 4.04, Hgb 12.2, Hct 37.0, MCV 91.4, MCH 30.2, MCHC 33.1, RDW 13.6, Plt Count 230, MPV 8.5, Neut % (Auto) 70.7, Lymph % (Auto) 17.6, Piatt % (Auto) 9.4, Eos % (Auto) 1.3, Baso % (Auto) 1.0, Nucleat RBC Rel Count 0.1, Neut # (Auto) 6.2, Lymph # (Auto) 1.5, Piatt # (Auto) 0.8, Eos # (Auto) 0.1, Baso # (Auto) 0.1 04/29/23 17:07: POC Glucose 144 04/29/23 14:13: APTT 44.2 H 04/29/23 12:08: Troponin I High Sens 3.2 04/29/23 04:47: Estimat Average Glucose 209, Hemoglobin A1c 8.9 H Exam Physical Exam Vital Signs: Temp Pulse Resp BP Pulse Ox O2 Del Method 98.0 F 66 16 141/69 H 99 Room Air 04/30/23 08:00 04/30/23 08:00 04/30/23 08:00 04/30/23 08:00 04/30/23 08:00 04/30/23 08:00 Narrative: General: Seated upright in bed. At intervals she gets up out of bed and walks around her room without any adverse symptomatology Cardiac: Normal sinus rhythm on the monitor. No ectopy. Heart sounds are normal to auscultation. Pulmonary: Clear to auscultation anteriorly. No wheezing. Respirations are normal and calm and easy. GI: Abdomen soft, normal bowel sounds. Right wrist: Cardiac catheterization site is good. Normal skin and texture around the site. Discharge Plan Discharge Plan Patient Disposition: Home Activity: Other Comment: Please follow Cardiac discharge instructions for activity restrictions. Diet: Diabetic and Low-Sodium Additional Instructions: DISCHARGE INSTRUCTIONS FOR ANGIOPLASTY/CORONARY/PERIPHERAL/STENT IMPLANT FOR ADULT ANTICOAGULATION -Since the greatest risk of a blood clot forming with the stent occurs in the first 2-3 weeks after implantation, you will need to take anticoagulants for at least 12-18 months. ANTICOAGULATION MEDICATION Aspirin 81mg once a day, Ticagrelor (Brilinta) 90mg twice a day STATIN MEDICATION Atorvastatin (Lipitor) 80 mg Drug-Eluting Stent (XAVIER) DO NOT discontinue Brilinta/Aspirin during the first few months regardless of what you are advised by your family doctor or pharmacist, without first calling the nurse recruiter who implanted the stent. If you require pain relief during this time, please take only ACETAMINOPHEN (TYLENOL)- NO additional aspirin or ibuprofen. DISCHARGE ACTIVITIES ARE FOLLOWS: First week after discharge: -Take it easy at home, no strenuous activity. -Do not lift or pull objects over 10-15 pounds, including children, and groceries for four weeks. If puncture site is at wrist do NOT lift more than three pounds for three days. - May walk up stairs. -May shower. -No excessive scrubbing of the affected site (groin). -May ride in car. -May resume sexual intercourse after 1-2 weeks. -No MRI for 12 days. -May drive in 4-7 days. -If puncture site is at the wrist do not manipulate the wrist for 24 hours, and no soaking wrist for three days. Second Week: -May take a bath -May start walking 3 times a week for 15-20 minutes at a leisurely pace. You should be able to carry on a conversation comfortably without feeling winded. -No strenuous activity as in jogging, running, weight lifting, stair steppers, etc. until the nurse recruiter approves these activities. Check with the nurse recruiter on your first follow-up visit. CALL YOUR PHYSICIAN at [phone]: -If bleeding should occur from the catheter insertion site- apply pressure to the site then immediately call us. -Report any fever, redness, drainage, increased swelling, or firmness at the catheter insertion site. Some bruising or slight swelling may be present at the time of discharge. -Should arm or leg become cold, numb, white, or blue, contact the nurse recruiter immediately. -IF you should experience episodes of angina, e.g. chest discomfort, heaviness, tightness, pressure burning with or without radiation to the neck, jaw, arms or back- use 1 Nitrostat tablet under your tongue every 5-10 minutes and up to three tablets. IF NO RELIEF, CALL 911 or GO TO THE NEAREST EMERGENCY ROOM. -Please notify our office if you have recurrent angina. -[Cardiac Rehab Education Provided. Participation in the Cardiopulmonary Rehabilitation program is recommended. Please call Central Scheduling at [phone] to schedule your appointment.] The attending nurse recruiter or [facility] nurse clinician should provide you with specific instructions regarding activity, diet, medications, and further follow up for you. Follow the medication instructions provided on your discharge. If the dosages and instructions on this sheet differ from the dosage and instructions on the bottle, follow the instructions on the bottle. [facility] is not responsible for incorrect prescription information provided by thepatient during their visit. Do not stop your medications without consulting your health care provider. Please take the list with you to your next doctor's appointment. Instructions: Coronary Angioplasty (DC), Coronary Stenting (DC), Angina (DC), Chest Pain (DC), Drug Eluting Stents Stand Alone Forms: Work/School Release Form Prescriptions: New Brilinta 90 mg Tablet 90 mg PO BID 90 Days Qty: 180 3RF metoprolol tartrate 50 mg Tablet 50 mg PO BID 30 Days Qty: 60 12RF atorvastatin 80 mg Tablet 80 mg PO QPM 30 Days Qty: 30 12RF Continued aspirin 81 mg Tablet,Delayed Release (Dr/Ec) 81 mg PO DAILY lisinopril 10 mg tablet 10 mg PO DAILY Patient Comments: TAKE 1 TABLET BY MOUTH EVERY DAY nitroglycerin 0.4 mg tablet, sublingual 0.4 mg sublingual DIRECTED PRN (Reason: Chest Pain) Patient Comments: place 1 tablet under the tongue every 5 minutes if needed for madeleine... (REFER TO PRESCRIPTION NOTES). Rx Instructions: Take one tablet every 5 minutes for cp, up to 3 doses. sertraline 25 mg tablet 25 mg PO DAILY Patient Comments: take 1 tablet by mouth every morning pioglitazone 30 mg tablet 30 mg PO DAILY Patient Comments: take 1 tablet by mouth every morning hydroxyzine pamoate 25 mg capsule 25 mg PO DAILY Patient Comments: take 1 capsule by mouth every 6 hours if needed for anxiety FOR UP TO 10 DAYS glimepiride 4 mg Tablet 4 mg PO DAILY nitrofurantoin macrocrystal 100 mg capsule 100 mg PO DAILY Patient Comments: take 1 capsule by mouth every morning Taltz Autoinjector 80 mg/mL Auto-Injector 80 mg SUBCUT Q4W Held metformin 850 mg Tablet 850 mg PO BID Hold Instructions: Resume on 05/02/23. Discontinued pravastatin 80 mg tablet 80 mg PO DAILY Patient Comments: TAKE 1 TABLET BY MOUTH ONCE A DAY atenolol 50 mg Tablet 50 mg PO DAILY Follow Up: Annabel Acharya DO [Active Staff - D.O.] - 05/08/23 8:50 am Bonita Santos DO [Primary Care Provider] - 05/04/23 9:30 am (Post hospital appointment. Please call to reschedule if needed.) Documented By: Simone Martinez DO [id number] Signed By: <Electronically signed by Simone Martinez DO> 04/30/23 160[address] [facility] Work Phone: 1(593) 962-190609-06-2023 Progress note Author Simone Martinez [facility] April 29, 2023 5:26pm Note Date/Time April 29, 2023 5:17pm [facility] [address] [place] [address] Hospitalist Progress Note Signed Patient: Brenda Segura MR#: [id number] : 1960 Acct:[id number] Age/Sex: 62 / F Adm Date: 3 Loc: Room: [address] [place] [address] Type: ADM IN Attending Dr: Simone Martinez DO Copies to: ~ Date of Service: 04/29/2023 Subjective Subjective Narrative: Patient returns from the [employer] this afternoon. Diagnosis is that she had an aborted STEMI in route to the hospital last evening but fortunately no significant rise in troponin levels and the finding was of an 80% hazy concentric tubular stenosis in the proximal right coronary artery which was treated with a drug- eluting stent. An additional finding was of mild to moderate mid circumflex coronary artery atherosclerotic disease in the range of 30 to 40% which will be treated medically. When I see the patient she is comfortable and in bed. She is on the telephone with one of her family members. She has the right TR band in place. She can wiggle her fingers and can sense light touch there. The chair bed seems to verytiny little bit of bleeding but is controlled by the bandage. She says that shecan tell that she feels better. She is not feeling that cardiac discomfort although it has been only a short period of time since the cardiac catheterization was done. She describes that she has a fairly active job at [employer]. There is a lot of carrying and lifting parts and very active on her feet with that job. I did tell her that she will need to take medical leave for a short period of time dueto cardiac catheterization restrictions. She is very happy with that and does not mind taking a little bit of medical leave. No other symptoms at this time. No headache. No fevers chills. No vision changes. No shortness of breath at all. No nausea or upset stomach. She is hungry and ready to eat dinner. Exam Physical Exam Vital Signs: Temp Pulse Resp BP Pulse Ox O2 Del Method 97.5 F L 62 16 147/87 H 100 Room Air 04/29/23 17:00 04/29/23 17:00 04/29/23 17:00 04/29/23 17:00 04/29/23 17:00 04/29/23 17:00 Narrative: General: Reclining in bed. Awake and alert and oriented x3. Cardiac: Normal sinus rhythm on the monitor. No ectopy. Heart sounds are normal to auscultation. Pulmonary: Clear to auscultation anteriorly. No wheezing. Respirations are normal and calm and easy. GI: Abdomen soft, normal bowel sounds. Right wrist: she is wearing the arm board and the TR band and sensation and movement are intact. Objective Lab Results 04/29/23 04:47 04/29/23 04:47 Microbiology Results Microbiology 04/28/23 19:30 Urine - Clean-Voided Midstream Urine Culture - Preliminary Meds Allergies and Active Meds Allergies menotropins [From Repronex] Allergy (Verified 04/28/23 18:49) Agitated Active Meds: Active Medications Generic Name Dose Route Start Last Admin Trade Name Rajanq PRN Reason Stop Dose Admin Acetaminophen 650 mg 04/28/23 20:29 Acetaminophen 325 Mg Tablet PO 04/27/24 20:28 Q6HR PRN Pain Scale 1 - 3 or fever Aspirin 81 mg 04/29/23 09:00 04/29/23 09:36 Aspirin 81 Mg Tablet.Dr PO 04/28/24 08:59 81 mg DAILY ENMANUEL Administration Aspirin 81 mg 04/30/23 09:00 Aspirin 81 Mg Tab.Chew PO 04/29/24 08:59 DAILY ENMANUEL Atorvastatin Calcium 80 mg 04/28/23 21:00 04/29/23 00:09 Atorvastatin 80 Mg Tablet PO 04/27/24 20:59 80 mg QPM ENMANUEL Administration Atropine Sulfate 1 mg 04/29/23 16:23 Atropine Sulfate 1 Mg/10 Ml Syringe IV-PUSH ONCE PRN Symptomatic Bradycardia Dextrose 0 gm 04/28/23 20:34 Dextrose 50% In Water 25 Gm/50 Ml Syringe IV-PUSH 04/27/24 20:33 PRN PRN Hypoglycemia Glucose 0 gm 04/28/23 20:34 Dextrose 40% Gel 15 Gm Tube PO 04/27/24 20:33 PRN PRN Hypoglycemia Heparin Sodium (Porcine) 4,000 unit 04/28/23 18:55 Heparin *Protocol Bolus* 5,000 Unit/Ml Vial IV-PUSH 04/27/24 18:54 PROTOCOL PRN PTT < 40 Heparin Sodium (Porcine) 2,700 unit 04/28/23 18:55 04/29/23 01:53 Heparin *Protocol Bolus* 5,000 Unit/Ml Vial 40 unit/kg (2700 unit) 04/27/24 18:54 2,700 unit IV-PUSH Administration PROTOCOL PRN PTT 40-53 Hydralazine HCl 10 mg 04/28/23 20:29 Hydralazine 20 Mg/Ml Vial IV-PUSH 04/27/24 20:28 Q4H PRN Hypertension Hydroxyzine Pamoate 25 mg 04/29/23 09:00 04/29/23 09:36 Hydroxyzine Pamoate 25 Mg Capsule PO 04/28/24 08:59 25 mg DAILY ENMANUEL Administration Dextrose/Sodium Chloride 1,000 mls @ 100 mls/hr 04/29/23 15:00 04/29/23 17:09 5 % Dextrose-0.45 % Nacl IV 04/28/24 14:59 Not Given .Q10H ENMANUEL Sodium Chloride 250 mls @ 999 mls/hr 04/29/23 16:23 0.9% Sodium Chloride 250 Ml IV 04/28/24 16:22 PRN PRN Hypotension Dextrose/Sodium Chloride 1,000 mls @ 100 mls/hr 04/29/23 16:30 5 % Dextrose-0.45 % Nacl IV 04/29/23 19:29 .Q10H ENMANUEL Bivalirudin 250 mg in 50 mls @ 23.38 mls/hr 04/29/23 16:30 Angiomax IV 04/29/23 18:38 .Q2H9M ENMANUEL 1.75 MG/KG/HR Insulin Aspart 0 units 04/28/23 22:00 04/29/23 17:09 Insulin Aspart 300 Units/3 Ml Insuln.Pen SUBCUT 04/27/24 21:59 Not Given TID.WM.HS ENMANUEL Protocol Lidocaine HCl 10 ml 04/29/23 16:23 Lidocaine 2% Mdv 50 Ml Vial SUBCUT 04/30/23 04:23 ONCE PRN Sheath Removal Lisinopril 10 mg 04/29/23 09:00 04/29/23 09:36 Lisinopril 10 Mg Tablet PO 04/28/24 08:59 10 mg DAILY ENMANUEL Administration Meperidine HCl 25 mg 04/29/23 16:23 Meperidine Pf 25 Mg/Ml Vial IV-PUSH 04/30/23 04:23 ONCE PRN Sheath Removal Metoprolol Tartrate 50 mg 04/29/23 09:00 04/29/23 09:36 Metoprolol Tartrate 50 Mg Tablet PO 04/28/24 08:59 50 mg BID ENMANUEL Administration Miscellaneous Information 1 each 04/29/23 09:29 Consult To Pharmacy MISCELLANE 04/28/24 09:28 .PHACONSULT PRN NYDIA.Pharmacy Consult Protocol Nitrofurantoin Macrocrystals 100 mg 04/29/23 09:00 04/29/23 09:37 Nitrofurantoin Monohyd/M-Cryst 100 Mg Capsule PO 04/28/24 08:59 100 mg DAILY ENMANUEL Administration Nitroglycerin 0.4 mg 04/28/23 20:33 Nitroglycerin 0.4 Mg Tab.Subl SUBLINGUAL 04/27/24 20:32 DIRECTED PRN Chest Pain Ondansetron HCl 4 mg 04/28/23 20:29 Ondansetron 4 Mg/2 Ml Vial IV-PUSH 04/27/24 20:28 Q8H PRN Nausea And Vomiting Pantoprazole Sodium 40 mg 04/29/23 09:00 04/29/23 09:36 Pantoprazole 40 Mg Tablet.Dr PO 04/28/24 08:59 40 mg DAILY ENMANUEL Administration Potassium Chloride 40 meq 04/29/23 09:29 Potassium Chloride Er 20 Meq Tab.Er.Prt PO STAT PRN Hypokalemia Promethazine HCl 12.5 mg 04/29/23 16:23 Promethazine 25 Mg/Ml Vial IV-PUSH 04/30/23 04:23 ONCE PRN Sheath Removal Sertraline HCl 25 mg 04/29/23 09:00 04/29/23 09:36 Sertraline 25 Mg Tablet PO 04/28/24 08:59 25 mg DAILY ENMANUEL Administration Sodium Chloride 0 ml 04/28/23 18:47 04/28/23 19:03 Sodium Chloride 0.9 % 10 Ml Syringe IV-PUSH 04/27/24 18:46 10 ml PRN PRN Administration Flush Sodium Chloride 0 ml 04/29/23 09:29 Sodium Chloride 0.9 % 10 Ml Syringe IV-PUSH 04/28/24 09:28 PRN PRN Flush Sodium Chloride 10 ml 04/29/23 16:23 Sodium Chloride 0.9 % 10 Ml Vial.Pf INJECTION 04/29/23 16:24 ONCE ONE Ticagrelor 90 mg 04/29/23 21:00 Ticagrelor 90 Mg Tablet PO 04/28/24 20:59 BID ENMANUEL A&P - Hospitalist Assessment/Plan (1) Unstable angina: (2) Atherosclerotic cardiovascular disease: (3) Diabetes: (4) HTN (hypertension): (5) Hyperlipemia: (6) Former tobacco use: Plan # Unstable angina/NONSTEMI/likely had an aborted STEMI while in route to the hospital here. -Two-vessel coronary artery disease with culprit vessel the right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80% and also mild to moderate mid circumflex disease of 30 to 40%. # HTN/HLD/PAF Triglycerides 71, total cholesterol 138, LDL cholesterol 71, HDL cholesterol 53. - cont home meds # DM2 Uncontrolled with hemoglobin A1c of 8.9 today. - holding Po meds. ISS while admitted. Resume home regimen at discharge # Anxiety - cont home meds Disposition: Inpatient status appropriate due to acute coronary syndrome with need for placement of drug-eluting stent. The inpatient order has been placed just as soon as I found out that the stent was placed in the coronary artery. Documented By: Simone Martinez DO 4 Signed By: <Electronically signed by Simone Martinez, > 04/29/23 [address] [facility] Work Phone: 1(871) 876-239009-06-2023 Consult note Author Annabel Acharya [facility] April 29, 2023 4:41pm Note Date/Time April 29, 2023 4:41pm [facility] [address] [place] [address] Cardiology Consult Note Signed Patient: Brenda Segura MR#: [id number] : 1960 Acct:[id number] Age/Sex: 62 / F Adm Date: 3 Loc: Room: 3T0312-1 Type: ADM INOo Attending Dr: Simone Martinez DO Copies to: Simone Martinez, DO Bonita Santos, DO Annabel Acharya DO~ Cardiology HPI History of Present Illness Consult Date: 04/29/23 Reason for Consult: Aborted STEMI/ACS HPI: Ms. Segura is a 62 year old female seen in interventional cardiology consultation at the request of Dr. Card ER attending last evening and hospitalist this morning in female [facility]ina rated on a scale of 10 out of 10 initially, improved with aspirin and sublingual nitroglycerin spray in the squad. Initial ECG revealed inferior STEMI injury current however second ECG revealed resolution and upon arrival to the ER complete normalization of the ECG. Notably, patient has been to [place] and [place] ERs in the recent past for chest discomfort reportedly with negative work-up per her report Patient was discussed with ER attending last evening, she was admitted and placed on nitroglycerin paste and heparin drip for consideration of early invasive management today. Fortunately, troponins remain negative, ECG remains normal Risk factors are noted for diabetes, hypertension, tobacco use (quit in February) x40 years. There is no prior history of myocardial infarction, revascularization, stroke, thromboembolic or bleeding disorder. MORENO risk score because of presentation, ECG abnormalities, risk factors is elevated at 4 consistent with moderate risk. Basically this represents an aborted inferior STEMI by ECG criteria and fortunately no evidence of myonecrosis with normal high-sensitivity troponins. Risks, benefits and alternatives informed decision-making process performed withthe patient for 30 minutes this afternoon we will proceed with cardiac catheterization and possible revascularization of culprit vessel. Review of Systems Review of Systems All other systems reviewed & are negative unless noted below or in HPI Constitutional Constitutional: Reports as per HPI ENT Ears, Nose, Mouth, and Throat: Reports system reviewed and no additional complaints, except as documented Cardiovascular Cardiovascular: Reports as per HPI and Reports chest pain at rest Respiratory Respiratory: Reports system reviewed and no additional complaints, except as documented Gastrointestinal Gastrointestinal: Reports system reviewed and no additional complaints, except as documented Genitourinary Genitourinary: Reports system reviewed and no additional complaints, except as documented Musculoskeletal Musculoskeletal: Reports system reviewed and no additional complaints, except asdocumented Integumentary/Breasts Skin/Breast: Reports system reviewed and no additional complaints, except as documented Neurologic Neurologic: Reports system reviewed and no additional complaints, except as documented [facility] Medical History (Updated 04/29/23 @ 16:41 by Annabel Acharya DO) Depression Diabetes HTN (hypertension) Hyperlipemia Psoriasis Surgical History H/O prior ablation treatment 2002 Family History Father Myocardial infarction Diabetes Brother Diabetes Family/Other Cancer Social History Smoking Status: Former smoker Tobacco Type: cigarettes Substance Use Type: None Meds Medications and Allergies Allergies menotropins [From Repronex] Allergy (Verified 04/28/23 18:49) Agitated Home Medications aspirin 81 mg tablet,delayed release 81 mg PO DAILY 04/28/23 [History Confirmed 04/28/23] atenolol 50 mg tablet 50 mg PO DAILY 04/28/23 [History Confirmed 04/28/23] glimepiride 4 mg tablet 4 mg PO DAILY 04/28/23 [History Confirmed 04/28/23] hydroxyzine pamoate 25 mg capsule 25 mg PO DAILY 04/28/23 [History Confirmed 04/28/23] ixekizumab 80 mg/mL subcutaneous auto-injector (Taltz Autoinjector) 80 mg [id number] 04/28/23 [History Confirmed 04/28/23] lisinopril 10 mg tablet 10 mg PO DAILY 04/28/23 [History Confirmed 04/28/23] metformin 850 mg tablet 850 mg PO BID 04/28/23 [History Confirmed 04/28/23] nitrofurantoin macrocrystal 100 mg capsule 100 mg PO DAILY 04/28/23 [History Confirmed 04/28/23] nitroglycerin 0.4 mg sublingual tablet 0.4 mg sublingual DIRECTED PRN Chest Pain 04/28/23 [History Confirmed 04/28/23] pioglitazone 30 mg tablet 30 mg PO DAILY 04/28/23 [History Confirmed 04/28/23] pravastatin 80 mg tablet 80 mg PO DAILY 04/28/23 [History Confirmed 04/28/23] sertraline 25 mg tablet 25 mg PO DAILY 04/28/23 [History Confirmed 04/28/23] Exam Physical Exam Vital Signs: Temp Pulse Resp BP Pulse Ox O2 Del Method 98.1 F 62 16 115/74 100 Room Air 04/29/23 12:00 04/29/23 12:00 04/29/23 12:00 04/29/23 12:00 04/29/23 12:00 04/29/23 12:00 Const General: cooperative, healthy appearing, comfortable, no acute distress, well developed and well groomed Nutritional Appearance: average body habitus Orientation: alert, awake and oriented x3 HEENT Head: normal to inspection Eyes General: appearance normal, both eyes and all related structures Neck Neck: normal visual inspection Chest Chest palpation & inspection: normal inspection of the chest Resp Effort & Inspection: normal respiratory effort Auscultation: clear to auscultation bilaterally Cardio Palpation: normal PMI Rate: regular rate Rhythm: regular rhythm Heart Sounds: S1 normal, S2 normal and no murmurs Bruits: no carotid bruits Pulses: radial pulses present, femoral pulses present and dorsalis pedis present GI Inspection: normal to inspection Palpation: soft Skin General: no rashes or lesions noted Neuro General: patient alert, patient awake and patient oriented x3 Cognition: normal cognition Speech: speech normal Extrem General: normal to inspection MORENO Risk Score MORENO Risk Score Predictor Historical: 3 or more Risk Factors: FHx,HTN,elevated cholesterol,DM,active smoker and ASA use in Past 7 Days Presentation: Recent (>/=24hr) Angina and ST Deviation >/=0.05mV Score Risk Score (0-7): 4 Results: 4 Results Labs 04/29/23 04:47 04/29/23 04:47 Lab results: Cardiac Enzymes 04/28/23 04/28/23 Range/Units 18:46 18:46 Total Creatine Kinase 30 (30-223) U/L B-Natriuretic Peptide 140.0 H (5-100) pg/mL Lipids 04/29/23 Range/Units 04:47 Triglycerides 71 (0-149) mg/dL Cholesterol 138 L (140-200) mg/dL HDL Cholesterol 53 (23-92) mg/dL Cholesterol/HDL Ratio 2.6 (<5.0) CBC 04/28/23 04/29/23 Range/Units 18:46 04:47 RBC 4.00 3.87 (3.60-5.00) X10E6/uL Hgb 11.9 11.8 (11.8-15.4) g/dL Hct 36.7 35.6 (34.0-46.4) % Plt Count 241 219 (150-450) x10E3/uL Neut # (Auto) 9.0 H 6.3 (1.8-7.7) x10E3/uL Lymph # (Auto) 1.4 2.8 (1.00-4.8) x10E3/uL Piatt # (Auto) 0.8 0.8 (0.0-0.8) x10E3/uL Eos # (Auto) 0.1 0.1 (0.0-0.45) x10E3/uL Baso # (Auto) 0.2 0.1 (0.0-0.2) x10E3/uL Comprehensive Metabolic Panel 04/28/23 04/29/23 Range/Units 18:46 04:47 Sodium 140 142 (136-145) mmol/L Potassium 4.1 3.8 (3.5-5.1) mmol/L Chloride 113 H 112 H (98-107) mmol/L Carbon Dioxide 20.8 L 23.1 (21.0-31.0) mmol/L BUN 21 18 (7-25) mg/dL Creatinine 0.93 0.67 (0.60-1.20) mg/dL Glucose 166 H 102 H (70-100) mg/dL Calcium 8.7 8.8 (8.6-10.3) mg/dL Intake and Output 04/29/23 04/29/23 04/29/23 07:59 15:59 23:59 Intake Total 50 / 50 0 / 50 Balance 50 / 50 0 / 50 Intake: Oral 50 / 50 0 / 50 Other: # Unmeasured Voids 3 4 # Bowel Movements 0 0 Weight 66.8 kg Date of Last Bowel Movement 04/28/23 04/28/23 Patient Weight 04/29/23 23:59 Weight 66.8 kg Lab 04/28/23 04/29/23 04/29/23 18:46 00:59 04:47 PT 11.4 12.0 INR 1.0 1.0 APTT 20.8 L 51.7 H 96.7 H* 04/29/23 04/29/23 07:57 14:13 PT INR APTT 75.6 H 44.2 H EKG Interpretations EKG EKG results cardiology: WNL and sinus rhythm EKG shows: other (Initial ECG from squad last evening revealed inferior STEMI injury current that normalized completely) A&P - Cardiology (1) ST segment changes on electrocardiogram: Code(s): R94.31 - Abnormal electrocardiogram [ECG] [EKG] (2) Unstable angina: Code(s): I20.0 - Unstable angina (3) Diabetes: Code(s): E11.9 - Type 2 diabetes mellitus without complications (4) HTN (hypertension): Code(s): I10 - Essential (primary) hypertension (5) Hyperlipemia: Code(s): E78.5 - Hyperlipidemia, unspecified (6) Former tobacco use: Code(s): Z87.891 - Personal history of nicotine dependence Documented By: Annabel Acharya DO 04/29/23 1634 Signed By: <Electronically signed by Annabel Acharya DO> 04/29/23 1641 [facility] Work Phone: 1(858) 632-172709-06-2023 Procedure noteUniversity [facility]09-06-2023 Procedure [facility]09-05-2023 History and physical note Author Olu Hull [facility] April 28, 2023 9:58pm Note Date/Time April 28, 2023 9:58pm [facility] [address] [place] [address] Hospitalist H&P Signed Patient: Brenda Segura MR#: [id number] : 1960 Acct:[id number] Age/Sex: 62 / F Adm Date: 3 Loc: Room: [address] [place] [address] Type: ADM IN Attending Dr: Olu Hull DO Copies to: DO Bonita Mancera DO~ HPI DATE OF EXAMINATION: 04/28/23 CHIEF COMPLAINT: chest pain, EKG changes HISTORY OF PRESENT ILLNESS: Pt is a 62 y/o F with PMHx of HTN/HLD, afib sp ablation, DM2 who presents with intermittent, but persistent chest pain for the last 3 weeks. Pt states that about 3 weeks ago she got severe pressure like pain midsternal which radiated toher jaw and was associated with sob and diaphoresis. She went to the ED where workup was negative and was sent home. Since that time, she has been to the hospital 3 more times including today. 2 weeks ago, she was admitted for the same and echo and stress test were unremarkable and she was discharged home. States that since then, she gets about an episode every other day. No related toactivity and completely random. States episodes are usually self resolving and she was using nitro if the pain persisted which helped, but today the nitro didn't help so she called EMS. Upon arrival, chest pain had resolved, but she had another episode while en route and EKG done at that time was concerning for STEMI. Cardiology immediately notified. Upon arrival, chest pain again resolved.EKG in the ED without ST elevations and intitial troponin was unremarkable. Due to her history and risk factors, cardiology recommended admission on heparin drip for cardiac cath tomorrow. At the time of exam, pt without complaints and denies chest pain, sob, abd pain, changes in appetite. Review of Systems Review of Systems All other systems reviewed & are negative unless noted below or in HPI [facility] Medical History (Updated 04/28/23 @ 21:54 by Olu Hull DO) Depression Diabetes HTN (hypertension) Hyperlipemia Psoriasis Surgical History H/O prior ablation treatment Meds Medications and Allergies Allergies menotropins [From Repronex] Allergy (Verified 04/28/23 18:49) Agitated Home Medications aspirin 81 mg tablet,delayed release 81 mg PO DAILY 04/28/23 [History Confirmed 04/28/23] atenolol 50 mg tablet 50 mg PO DAILY 04/28/23 [History Confirmed 04/28/23] glimepiride 4 mg tablet 4 mg PO DAILY 04/28/23 [History Confirmed 04/28/23] hydroxyzine pamoate 25 mg capsule 25 mg PO DAILY 04/28/23 [History Confirmed 04/28/23] lisinopril 10 mg tablet 10 mg PO DAILY 04/28/23 [History Confirmed 04/28/23] metformin 850 mg tablet 850 mg PO BID 04/28/23 [History Confirmed 04/28/23] nitroglycerin 0.4 mg sublingual tablet 0.4 mg sublingual DIRECTED PRN Chest Pain 04/28/23 [History Confirmed 04/28/23] pioglitazone 30 mg tablet 30 mg PO DAILY 04/28/23 [History Confirmed 04/28/23] pravastatin 80 mg tablet 80 mg PO DAILY 04/28/23 [History Confirmed 04/28/23] sertraline 25 mg tablet 25 mg PO DAILY 04/28/23 [History Confirmed 04/28/23] Exam Physical Exam Vital Signs: Temp Pulse Resp BP Pulse Ox O2 Del Method 98.4 F 73 16 123/57 L 100 Room Air 04/28/23 18:47 04/28/23 20:30 04/28/23 20:30 04/28/23 20:30 04/28/23 20:30 04/28/23 20:30 Narrative: General: Awake and alert. Lying in bed comfortably HEENT: Normocephalic, atraumatic, trachea midline Respiratory: good inspiratory effort, clear to auscultation, no wheeze, no rhonchi, no crackles Cardiovascular: RRR, normal S1 and S2 Abdominal: soft, non-distended, no tenderness, no rebound, no guarding, +BS Skin: warm, dry, no lesions or rashes MSK: no edema Neurologic: No focal deficits Psych: appropriate affect Results Lab Results Labs: Laboratory Last Values Corrected WBC 11.5 X10E3/uL (3.8-11.6) 04/28/23 18:46 Uncorrected WBC Count 11.5 x10E3/uL (3.8-11.6) 04/28/23 18:46 RBC 4.00 X10E6/uL (3.60-5.00) 04/28/23 18:46 Hgb 11.9 g/dL (11.8-15.4) 04/28/23 18:46 Hct 36.7 % (34.0-46.4) 04/28/23 18:46 MCV 91.8 fl (80-100) 04/28/23 18:46 MCH 29.7 pg (24.7-34.3) 04/28/23 18:46 MCHC 32.4 g/dL (32.0-35.0) 04/28/23 18:46 RDW 13.8 % (11.9-15.3) 04/28/23 18:46 Plt Count 241 x10E3/uL (150-450) 04/28/23 18:46 MPV 8.5 fl (6.3-10.7) 04/28/23 18:46 Neut % (Auto) 78.5 % (.) 04/28/23 18:46 Lymph % (Auto) 12.1 % (.) 04/28/23 18:46 Piatt % (Auto) 7.4 % (.) 04/28/23 18:46 Eos % (Auto) 0.5 % (.) 04/28/23 18:46 Baso % (Auto) 1.5 % (.) 04/28/23 18:46 Nucleat RBC Rel Count 0.0 /100 WBC (0-0.5) 04/28/23 18:46 Neut # (Auto) 9.0 x10E3/uL (1.8-7.7) H 04/28/23 18:46 Lymph # (Auto) 1.4 x10E3/uL (1.00-4.8) 04/28/23 18:46 Piatt # (Auto) 0.8 x10E3/uL (0.0-0.8) 04/28/23 18:46 Eos # (Auto) 0.1 x10E3/uL (0.0-0.45) 04/28/23 18:46 Baso # (Auto) 0.2 x10E3/uL (0.0-0.2) 04/28/23 18:46 Monocyte Dist Width 19.54 % (0.00-20.00) 04/28/23 18:46 PT 11.4 Seconds (9.0-12.9) 04/28/23 18:46 INR 1.0 04/28/23 18:46 APTT 20.8 Seconds (25.1-36.5) L 04/28/23 18:46 PHA Creatinine Clear 60.21 04/28/23 18:46 Sodium 140 mmol/L (136-145) 04/28/23 18:46 Potassium 4.1 mmol/L (3.5-5.1) 04/28/23 18:46 Chloride 113 mmol/L (98-107) H 04/28/23 18:46 Carbon Dioxide 20.8 mmol/L (21.0-31.0) L 04/28/23 18:46 Anion Gap 10.3 mEq/L (6.0-15.0) 04/28/23 18:46 BUN 21 mg/dL (7-25) 04/28/23 18:46 Creatinine 0.93 mg/dL (0.60-1.20) 04/28/23 18:46 Est GFR (CKD-EPI) > 60.0 mL/Min 04/28/23 18:46 Glucose 166 mg/dL (70-100) H 04/28/23 18:46 Calcium 8.7 mg/dL (8.6-10.3) 04/28/23 18:46 Total Creatine Kinase 30 U/L (30-223) 04/28/23 18:46 Troponin I High Sens 3.8 pg/mL (0.0-15.0) 04/28/23 18:46 B-Natriuretic Peptide 140.0 pg/mL (5-100) H 04/28/23 18:46 Urine Color Yellow (Yellow) 04/28/23 19:30 Urine Appearance Cloudy (Clear) A 04/28/23 19:30 Urine pH 6.0 (5.0-9.0) 04/28/23 19:30 Ur Specific [place] 1.023 (1.001-1.030) 04/28/23 19:30 Urine Protein 100 mg/dL (Negative) H 04/28/23 19:30 Urine Glucose (UA) 250 mg/dL (Normal) H 04/28/23 19:30 Urine Ketones 1+ (Negative) H 04/28/23 19:30 Urine Occult Blood Negative (Negative) 04/28/23 19:30 Urine Nitrite Negative (Negative) 04/28/23 19:30 Urine Bilirubin Negative (Negative) 04/28/23 19:30 Urine Urobilinogen Normal mg/dL (Normal) 04/28/23 19:30 Ur Leukocyte Esterase 2+ (Negative) H 04/28/23 19:30 Urine RBC 5-9 /HPF (0-4) H 04/28/23 19:30 Urine WBC 20-49 /HPF (0-4) H 04/28/23 19:30 Ur Squamous Epith Cells 10-19 /HPF (0-2) H 04/28/23 19:30 Ur Renal Epithelial Cell N/A 04/28/23 19:30 Urine Bacteria None seen (None Seen) 04/28/23 19:30 Hyaline Casts 20-49 /LPF (0-1) H 04/28/23 19:30 Assessment & Plan Assessment/Plan (1) Unstable angina: (2) ST segment changes on electrocardiogram: Plan # Unstable angina - for last 3 weeks where workup has included unremarkable stress test, cardiac enzymes and EKG's - today had episode of chest pain en route and EMS EKG noted ST elevations whichwere not present on repeat EKG in the ED. ED spoke with cardiology who recommended heparin drip and NPO at midnight for cardiac cath given risk factorsand history - initial troponin unremarkable. Will trend - cardiology consulted - cont heparin drip. NPO at midnight - cont asa/statin - tele - nitro prn # HTN/HLD/PAF - cont home meds # DM2 - holding Po meds. ISS while admitted. Resume home regimen at discharge # Anxiety - cont home meds Disposition: Pt with 3 weeks of unstable angina with largely unremarkable workupincluding stress test, echo, EKG's and cardiac enzymes. Due to risk factors and history/presentation, cardiology recommended admission on heparin drip for cardiac cath tomorrow. Trending troponin IP vs OBS Justification Based on differential dx, clinical care plan, and risk of adverse events, if untreated, in my clinical judgement this patient requires an acute care setting as: OBSERVATION because of an expectation of an under 2 midnight stay. Estimated length of stay (# of days): 2 Time Spent With Patient (min): 45 Documented By: Olu Hull DO 04/28/23 214 8 Signed By: <Electronically signed by Olu Hull DO> 04/28/23 [address] [facility] Work Phone: [phone] Evaluation note* Encounter Date Diagnosis Assessment Notes Treatment Notes Treatment Clinical Notes Feb, Dysuria (ICD-10 - R30.0) Diagnosis and dipstick findings with patient. Advised patient that I believe that dipstick findings are correlating with elevated sugar levels, there are no signs of infection present on dip. We will send urine out for culture, will call with results in 2 to 5 days, at time of results treatment plan may change. Patient reports that she does not frequently monitor her blood sugars because they are always high. Educated patient that high glucose levels can also affect kidney function, and that she needs to monitor closely and have follow-up with her primary care provider. Advised patient to push fluids. Immediate evaluation in ER for signs/symptoms as discussed. Patient verbalizes understanding and is agreeable with treatment plan [facility] Other [id number] NoteCONSULTATION PROCEDURE DATE: 01/20/2023 PROCEDURE: Left sural nerve injection. PREOPERATIVE DIAGNOSIS: Pain secondary to left sural nerve neuritis. POSTOPERATIVE DIAGNOSIS: Pain secondary to left sural nerve neuritis. SOLUTION USED FOR INJECTION: 2 mL of 2% lidocaine, 2 mL of 0.25% Marcaine, 10 mg of Kenalog, total of 5 mL, and 1 mL used for the injection at the site. IMMEDIATE COMPLICATIONS: None. PROCEDURE: After informed consent was obtained from the patient, placed in the supine position. Skin overlying the area was prepped with alcohol. A 25 gauge 1 1/2 inch needle was inserted over the area of the left sural nerve. Needle tip was advanced until it was encountered , where the patient experienced some mild paresthesia, at which point we re-directed the needle tip, and the paresthesia completely resolved. We injected 1 mL of solution. No indication of intravascular or intraneural needle tip placement or injection. Post procedurally, she reports a marked reduction in her pain symptoms.[facility] [id number] NoteCONSULTATION CONSULTATION DATE: 12/25/2022 TO: Bonita Santos D.O. HISTORY: Patient returns today complaining of 5-7/10 pain, sharp in character, over her left ankle area. She describes a burning component, increasing with activity such as standing and walking and performing transitioning maneuvers. She feels most comfortable in the semi-recumbent position. Denies any change in bowel and bladder habits or new sensorimotor changes in the lower extremities. EXAMINATION: Notable for patient having dysesthesia and hypoesthesia overlying the distribution of the left sural nerve. Patient also had significant myofascial spasm of the left gastrocnemius muscle, as well as significant tenderness and spasm of the left fibulocalcaneal ligament. IMPRESSION: Our impression is patient has chronic pain secondary to left sural nerve neuritis and myofascial dysfunction of the left gastrocnemius. RECOMMENDATIONS: I have recommended she start baclofen 5 mg pills, half to one b.i.d. She was using lidocaine on an as needed basis. I have asked her to use it around the clock and finally to proceed with a left sural injection. I have gone over the details of the procedure with the patient. All her questions answered. She agrees to proceed with the outlined plan. As part of providing excellent, safe, comprehensive care, the following was completed at our patient's visit: 1. A medication reconciliation and review to ensure accurate knowledge of current/active medications, including asking our patients to inform us about any [id number] medications or herbal remedies/nutritional supplements/alternative remedies. 2. A review to specifically ensure our patients have had annual screening for: elevated body mass index (BMI, see intake chart for exact total), tobacco use, screening for depression, and screening for unhealthy alcohol use. When screening is concerning, patients are provided with education and the specific recommendation to discuss the concerning health issue and treatment options with their primary care provider.[facility] [id number] Note CONSULTATION CONSULTATION DATE: 12/18/2022 TO: Bonita Santos D.O. CHIEF COMPLAINT: Left ankle pain. HISTORY: She reports the pain as being 5-7/10, sharp in character with a deep burning component, increased with activities such as standing, walking and performing transitioning maneuvers. She feels most comfortable in the semi-recumbent position. She also reports sensitivity to light touch over the left lateral portion of her ankle. EXAM: Notable for patient having dysesthesia and hyperesthesia overlying the distribution of the left sural nerve. There appears to be point tenderness overlying the area that appears to be the calcaneofibular ligaments. I could not appreciate signs consistent with lumbar or sacral radiculopathy on today's visit. IMPRESSION: Our impression is patient has chronic pain secondary to possible neuritis involving the left sural nerve, although her EMG did reveal possibility of S1 with an S2 radicular component. At least on today's visit, I feel like this response is from the majority of her left ankle pain. She also had significant point tenderness and spasm overlying an area of the left calcaneofibular ligament. There appears to be reduced range of motion in all directions of her ankle with reduced dorsiflexion, plantar flexion, inversion and eversion, and there was a moderate amount of pain with movement in each direction. I could not appreciate any signs consistent with complex regional pain syndrome type 1 or type 2 on today's visit. Our impression is patient has chronic pain secondary to: 1. Neuritis involving the left sural nerve. 2. Myofascial dysfunction dystonic changes involving the calcaneofibular ligament. RECOMMENDATIONS: I have asked the patient to trial topical lidocaine for the next one week. We will see her back in the office. Pending her response, we may proceed with a sural nerve injection or a trigger point injection using local anesthetic of the calcaneofibular ligamental area. In the future, she may be an appropriate candidate for consideration for botulinum toxin injection. As part of providing excellent, safe, comprehensive care, the following was completed at our patient's visit: 1. A medication reconciliation and review to ensure accurate knowledge of current/active medications, including asking our patients to inform us about any [id number] medications or herbal remedies/nutritional supplements/alternative remedies. 2. A review to specifically ensure our patients have had annual screening for: elevated body mass index (BMI, see intake chart for exact total), tobacco use, screening for depression, and screening for unhealthy alcohol use. When screening is concerning, patients are provided with education and the specific recommendation to discuss the concerning health issue and treatment options with their primary care provider.[facility] [id number] NoteThis is a Telephone Appointment *This visit was conducted by Telephone with real time communicationand interaction. This was performed due to the current COVID-19 pandemic in order to minimize exposure to both patients and staff. The patient verbally consented to treatment. The patient understandstheir rights, the HIPAA risks and that they will be charged accordingly for the services rendered. Chief Complaint F/U LAYNE results History of Present Illness Patient is a pleasant 61-year-old female presents for follow-up of nerve entrapment symptoms of theleft lower extremity She has undergone EMG which showed S1 radiculopathy. She has had pain greater than 6 months. She has been following with Dr. Goff pain management. She relates that he has done several injections which is resolved her pain is greater than 70% improved. She is currently very pleased with her treatment. Currently has no pain or issues. She presents via telephone at her home for results of her ABIs. Review of Systems Constitutional Head Nose Mouth Throat Cardio/Respiratory Hematologic Chills: No Headache: No Shortness of Breath: No History of DVT: No Fever: No Sore Throat: No Chest Pain: No History of Claudication: No Ear Pain: No Palpitation: No History of Aneurysm: No History of Gangrene: No Genitourinary Musculoskeletal Psychiatric Vascular Burning: No Muscle Weakness: No Anxiety: No Blood Disorder: No Pain: No Joint Pain: No Depression: No Numbness: No Gastrointestinal Dermatology Rheumatologic Problems: No Rash: No History of Rheumatic Arthritis: No Pain: No Pruritus: No History of Gout: No History of Lupus: No Physical Exam Vitals & Measurements HT: 170 cm WT: 63.8 kg WT: 63.8 kg (Dosing) BMI: 22.08 General: No audible acute distress. Normal conversant. Alert and oriented x 4. Attentive and appropriate. Asks appropriate questions. No gross deficits in reasoning memory or intellect. Respiratory: No audible labored breathing. No audible wheezing or stridor noted. Additional Vitals No qualifying data available. Assessment/Plan 1. Entrapment of superficial peroneal nerve 2. 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 History of ankle surgery 5. Neuritis of left foot 6. Lumbosacral radiculopathy -E/M with time spent with patient dedicated to discussion of pathogenesis and treatment options forpatient's problems including padding, offloading, stretching exercises, protective boot wearing, diagnostic injection, pain referral, neurology referral. -Radiographs tib-fib reviewed prior Encouraged use of lace up ankle brace and shoe gear modification if it is helping Continue nerve vitamins Reviewed EMG and MRI prior. Patient does have findings of S1 radiculopathy on EMG. Reviewed Dr. Goff pain management notes. Appreciate assistance. She currently has almost complete pain relief from his treatment regimen. I encouraged continued follow-up as needed if she has recurrence of pain with him. Discussed performing diagnostic injections of the left common peroneal nerve, left sural nerve, left superficial peroneal nerve under ultrasound guidance. We will forego this as patient is not currently having pain, she wants to defer injections at this time. I feel this is feasible given she is not having pain. Discussed possibility of double crush syndrome. Prior common peroneal nerve injection did give quite a bit of pain relief she relates. She also hadinjections from Dr. Goff which provided pain relief around the same time. All questions and concerns answered. Patient able to plan. Vascular arterial segmental studies reviewed with patient. No signs of peripheral arterial occlusive disease. -Evaluation and Management extensive and detailed with time spent with patient dedicated to discussion of pathogenesis and treatment options for patient's problem including neurologic examination androutine monitoring, shoe gear inspection and recommendations, Custom extra depth/diabetic shoes, frequency of rechecks, Blood Glucose and A1c education and importance in risks and amputations. Further care to avoid infection and amputation discussed in detail, home shoe wear, no barefoot all discussed, house shoes better options than socks and barefoot, mirror or family member daily foot checks, and application of common-sense foot protection from elements and extreme cold and heat. -All above Diabetes mellitus foot education discussed and handouts given, including resources online and locally Encouraged regular follow-up with either primary care physician, Shira Quick, endocrinology, or other foot and ankle specialist locally for at risk diabetic foot checks every 6 to 12 months. Patient relates understanding. Patient return to clinic as needed. As above I encouraged semiregular follow-up with a foot and ankle practitioner or another practitioner who will examine her feet. Time Spent (more content not included)...[facility] 10-07-2022 NoteCONSULTATION CONSULTATION DATE: 10/07/2022 CHIEF COMPLAINT: Left ankle pain. HISTORY OF PRESENT ILLNESS: This is a 61-year-old female who has been seen one time. The patient had a left ankle injection, scar tissue injection, which afforded the patient significant improvement of her pain. The patient had scar tissue along the left medial plantar and also left medial tibial nerve. Subsequent to those injections, the patient states her range of motion improved substantially in her left ankle and also her pain level. The patient was then seen by Podiatry/Wound, who have given her off work slip. The patient is to follow up with Dr. Reis, orthopedic ankle specialist at [facility]. The patient reports 1/10 pain. The patient states it is not significant. Sitting mitigates the pain as does laying down. Standing, walking, activities aggravate the pain. The patient takes Motrin on a p.r.n. basis, wellbutrin 150 mg. The patient also has tramadol 50 mg she takes on an intermittent basis. The patient has not worked at [employer] for a few weeks now. The patient's PAST MEDICAL HISTORY / SURGICAL HISTORY / REVIEW OF SYSTEMS are noted on the chart, along with the MEDICATION LIST / ALLERGIES and RADIOLOGICAL IMAGES. PHYSICAL EXAMINATION: Upon physical examination, this is a pleasant, cooperative female who does not appear to be in any acute distress. VITAL SIGNS: Stable at 144/81. At a height of 5'7 , the patient weighs 63 kg. EXTREMITIES: The patient has good range of motion. The patient is not guarded with her left ankle. The patient is able to invert and roseann without overt discomfort. Given that the patient has not been at work now for a few weeks, it is hard to ascertain. DIAGNOSIS: Current working diagnosis on the patient is osteoarthritis of the ankle, status post scar tissue entrapment infiltration along the left medial plantar nerve and also left medial tibial nerve, which has afforded the patient significant improvement of her pain. PLAN: The patient is to follow up with Dr. Reis on 10/09/2022. The patient will return to the Pain Clinic as needed, on a p.r.n. basis. CC: Dr. Barger [facility] [id number] Evaluation note* Encounter Date Diagnosis Assessment Notes Treatment Notes Treatment Clinical Notes Aug, Dysuria (ICD-10 - R30.0) Aug, Acute cystitis with hematuria (ICD-10 - N30.01) Take medication as directed. Urine analysis shows abnormalities today in office. Urine culture will be sent to lab. Will call with results if warranted. Increase fluid intake. Follow hygiene guidelines such as wiping front to back, avoid using perfumed lotions, bath beads, bubble bath. Recommend follow up with primary care provider after treatment completed to make sure infection has cleared. [facility] Other 01-10-2023 NoteCONSULTATION CONSULTATION DATE: 09/02/2022 HISTORY OF PRESENT ILLNESS: This is a very pleasant, 61-year-old female who was referred to us by Dr. Interiano. The patient's PCP is Dr. Dumont. The patient has significant pain in her left ankle. The patient had undergone surgical intervention in October of 2021. There is a possibility of nerve damage. EMG nerve conduction study performed showed entrapment of the nerve and also the possibility of an S1 radiculitis/radiculopathy. Sitting mitigates the pain. Laying down mitigates the pain. Standing, walking, weight bearing, bending, climbing stairs, activities at the end of her work at [employer] aggravate the patient's pain. The patient states she has significant difficulty in particular positions that she has at her work. The patient takes ibuprofen 400 mg 1-2 tablets per day. The patient has attended physical therapy in the past. The patient's PAST MEDICAL HISTORY / SURGICAL HISTORY / REVIEW OF SYSTEMS are noted on the chart, along with the MEDICATION LIST / ALLERGIES and X-RAY of the left ankle. The results are noted on to the chart. PHYSICAL EXAM: Upon physical examination, this is a pleasant, cooperative female, who does not appear to be in any acute distress. The patient has an antalgic gait. She favors her left foot and disproportionately puts weight on her right foot with a hobbled gait. The patient has decreased muscle bulk and has an endomorphic, petite bone frame. Decreased muscle mass is noted on the patient bilaterally, baseline. FOCUSED EVALUATION: A well healed surgical scar is noted along the lateral fibular head and lateral malleolus. Sclerotic changes are noted. The patient has heel spurs. On palpatory evaluation, loss of plantar arch is present. Tenderness and hypoesthesia and hyperpathia, allodynia is present along the lateral aspect and the dorsum of her foot, consistent with impingement of the sural nerve. The remainder of the physical examination is noncontributory. IMPRESSION: Current working diagnosis on the patient is left ankle pain, status post ankle surgery in October of 2021 with nerve entrapment, impingement along the scar tissue, as defined also in the EMG nerve conduction, loss of plantar arch, osteopenia. PLAN: We have suggested a multivitamin regimen to the patient. Tramadol 50 mg one table p.o. daily will be ordered for the patient. A topical ointment has been prescribed for the patient for the allodynia/hyperpathia. Arch supports have been suggested to the patient, and we shall look to get authorization from the insurance for scar tissue adhesiolysis along the sural nerve. The patient understands and would like to proceed. CC: Chloé Dumont M.D. Christie Interiano, [facility]11-11-2022 NotePROCEDURE: XR ANKLE LT MIN 3 V, XR FOOT LT MIN 3 VIEWS HISTORY: Pain of left ankle joint ; acute heel and lateral foot pain COMPARISON: XR ankle left 01/06/2022, XR foot left 11/13/2021 FINDINGS: BONES:Small degenerative findings at the Achilles tendon and plantar aponeurosis insertions into the calcaneus. No fracture, dislocation, bone lesion. No significant joint space narrowing or periarticular osteophytes. SOFT TISSUES:No visible soft tissue swelling. EFFUSION:None visible. OTHER: Negative. IMPRESSION: 1. No acute bone abnormality of the left ankle or foot, with specific attention to the calcaneus. 2. Minimal degenerative changes. Electronically authenticated by: CLARA GARCIA Date: 2022-07-04 06:46[facility]11-11-2022 NotePROCEDURE: XR ANKLE LT MIN 3 V, XR FOOT LT MIN 3 VIEWS HISTORY: Pain of left ankle joint ; acute heel and lateral foot pain COMPARISON: XR ankle left 01/06/2022, XR foot left 11/13/2021 FINDINGS: BONES:Small degenerative findings at the Achilles tendon and plantar aponeurosis insertions into the calcaneus. No fracture, dislocation, bone lesion. No significant joint space narrowing or periarticular osteophytes. SOFT TISSUES:No visible soft tissue swelling. EFFUSION:None visible. OTHER: Negative. IMPRESSION: 1. No acute bone abnormality of the left ankle or foot, with specific attention to the calcaneus. 2. Minimal degenerative changes. Electronically authenticated by: CLARA GARCIA Date: 2022-07-04 06:[address] [place], [place] 2087409-13-2022 Evaluation note* Encounter Date Diagnosis Assessment Notes Treatment Notes Treatment Clinical Notes Apr, Right acute otitis media (ICD-10 - H66.91) Ear infections are often a secondary infection caused from an URI, the flu or allergies. Take medication as directed. Complete all doses, even if you feel better. Follow up with primary care provider if no improvement of symptoms. Patient needs to follow up to have hearing retesting- follow up with primary care if hearing test fails again [facility] Other 08-27-2022 Evaluation note* Encounter Date Diagnosis Assessment Notes Treatment Notes Treatment Clinical Notes Mar, Dysuria (ICD-10 - R30.0) Mar, Acute cystitis with hematuria (ICD-10 - N30.01) Meds as prescribed. Push fluids. Urine sent for culture and pt will be notified of results if any change needs to be made. Advised good hygeine and no sexual activity while on meds. Pt to f/u as needed with pcp for persistent or recurrent sx. Immediate eval in ER for abdominal pain, severe back pain, N/V/D, fever/chills, or severe dehydration. Pt understood and agreed to teatment plan. [facility] Other 06-13-2022 NoteOPERATIVE NOTE OPERATION DATE: 02/04/2022 PREOPERATIVE DIAGNOSIS: Upper GI bleed/lower GI bleed. PROCEDURE PERFORMED: EGD with biopsy x1 from the antrum of the stomach and colonoscopy with biopsy from the descending colon. POSTOPERATIVE DIAGNOSIS: Gastritis, small hiatal hernia and inflammation of the descending colon. ANESTHESIA: Monitored anesthesia care. PROCEDURE: Patient was brought into the endoscopy suite, placed in the left lateral decubitus position. She was sedated by the nurse podiatric surgeon. A bite block was placed in the patient's mouth. The gastroscope was lubricated, advanced through the bite block, into the oropharynx and down the esophagus. She had a small hiatal hernia. Upon entering the stomach, the gastric mucosa was mildly inflamed. There was no evidence of any ulcers or erosions. No old blood or active bleeding. The endoscope was advanced through the pylorus and into the duodenum. The duodenal bulb and sweep appeared normal. The scope was then removed. Biopsy from the antrum of the stomach was obtained for SHIRIN test. Hemostasis was evident. There was no evidence of any gastric or esophageal varices. Next, the operating cart was turned. A digital rectal exam was performed that showed no evidence of any mass, hemorrhoids or fissures. The colonoscope was lubricated, introduced into the anus and advanced slowly. Beginning in the descending colon, the patient had significant inflammation of the colon wall. This was continued throughout the descending colon. Due to the amount of the inflammation, the procedure was discontinued because I did not want to insufflate this area of the colon with too much air. A biopsy was obtained from the descending colon. Hemostasis was evident without any further intervention. The colonoscope was retroflexed in the rectum. There was no evidence of any lesions. Patient tolerated procedure without any difficulty. [place] Signed and Approved by: DR SARAI SKINNER . 02/06/2022 10:09:00[facility] complaint Narrative - Reported* 62-year-old female returns for transitional care management office visit following aborted inferiorSTEMI with primary revascularization of the RCA with drug-eluting stent and normal left ventricularfunction. She has no other significant coronary disease. She is unable to afford her Brilinta and th erefore will need to switch to clopidogrel. She is otherwise stable back to work without any problems her radial access site is well-healed * Patient remained stable on current GDMT without any complications or problems. She is a non-smoker.She is diabetic on oral therapies * Recommendations: Switch to clopidogrel with appropriate loading dose, initiate cardiac rehab referral, follow-up otherwise in 6 mos [facility] 250 DO Work Phone: Evaluation + Plan note No data available for this section [facility] evaluation + Plan note Future Appointments Appointment Date:05/02/2024 09:30:00 AM Scheduled Provider:Joe CARTAGENA MD [facility] Future Appointments Appointment Date:10/07/2024 09:30:00 AM Scheduled Provider: Location:[facility] Appointment Type:URO Nurse Visit Appointment Date:10/10/2024 11:40:00 AM Scheduled Provider:CHLOÉ PIZANO PA-C Location:[facility] Appointment Type:URO Office Visit [facility] evaluation + Plan note Future Appointments Appointment Date:10/07/2024 09:30:00 AM Scheduled Provider: Location:[facility] Appointment Type:URO Nurse Visit Appointment Date:10/10/2024 11:40:00 AM Scheduled Provider:CHLOÉ PIZANO PA-C Location:[facility] Appointment Type:URO Office Visit Diagnostic Tests Pending * Urine Culture 09/20/24 [facility] evaluation noteNo assessment information available [facility] Work Phone: evaluation noteNo InformationNort [employer] Other evaluation note* Diagnosis Onset Date Resolution Status ST segment changes on electrocardiogram acute Unstable angina acute [facility] Work Phone: evaluation note* Diagnosis Onset Date Resolution Status Atherosclerotic cardiovascular disease acute Diabetes acute Former tobacco use acute HTN (hypertension) acute Hyperlipemia acute ST segment changes on electrocardiogram acute Unstable angina acute [facility] Work Phone: evaluation note* Diagnosis 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 Primary hypertension Unspecified essential hypertension Mixed hyperlipidemia S/P right coronary artery (RCA) stent placement Type 2 diabetes mellitus with other diabetic kidney complication (Multi) Old [place] (myocardial infarction) Old myocardial infarction BMI 23.0-23.9, adult Former smoker Personal history of tobacco use, presenting hazards to health documented in this encounter [facility] Work Phone: Evaluation note* Diagnosis Acute cystitis without hematuria- Primary Dysuria documented in this encounter [facility] Healthcare[facility] note* Diagnosis Mixed hyperlipidemia (CMS/HCC)- Primary Mixed hyperlipidemia Primary hypertension (CMS/HCC) Unspecified essential hypertension 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) Iron deficiency anemia, unspecified iron deficiency anemia type Recurrent major depressive disorder, in partial remission (HCC) (CMS/HCC) Type 2 diabetes mellitus with hyperglycemia, without long-term current use of insulin (CMS/HCC) documented in this encounter [facility] HealthcareEvaluation note* Diagnosis 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 S/P right coronary artery (RCA) stent placement Primary hypertension Unspecified essential hypertension Mixed hyperlipidemia Type 2 diabetes mellitus with other diabetic kidney complication BMI 23.0-23.9, adult Smoker Tobacco use disorder Old [place] (myocardial infarction) Old myocardial infarction documented in this encounter [facility] Work Phone: Evaluation note* Diagnosis Acute cystitis without hematuria- Primary Dysuria documented in this encounter [facility] HealthcareEvaluation note* Diagnosis Mixed hyperlipidemia ([facility]/HCC)- Primary Mixed hyperlipidemia Recurrent major depressive disorder, in partial remission (HCC) ([facility]) Screening mammogram for breast cancer ALDAIR (generalized anxiety disorder) ([facility]) Generalized anxiety disorder Recurrent UTI Urinary tract infection, site not specified Iron deficiency anemia, unspecified iron deficiency anemia type documented in this encounter [facility]* Diagnosis Primary hypertension ([facility])- Primary Unspecified essential hypertension Type 2 diabetes mellitus with other diabetic kidney complication ([facility]) ALDAIR (generalized anxiety disorder) ([facility]) Generalized anxiety disorder Type 2 diabetes mellitus with diabetic cataract ([facility]) Type II or unspecified type diabetes mellitus with ophthalmic manifestations, not stated as uncontrolled documented in this encounter [facility] Healthcare[facility] and physical note Author Olu Hull [facility] April 28, 2023 9:58pm Note Date/Time April 28, 2023 9:58pm [facility] [address] [place] [address] Hospitalist H&P Signed Patient: Brenda Segura MR#: [id number] : 1960 Acct:[id number] Age/Sex: 62 / F Adm Date: 3 Loc: Room: [address] [place] [address] Type: ADM IN Attending Dr: Olu Hull DO Copies to: DO Bonita Mancera DO~ HPI DATE OF EXAMINATION: 04/28/23 CHIEF COMPLAINT: chest pain, EKG changes HISTORY OF PRESENT ILLNESS: Pt is a 62 y/o F with PMHx of HTN/HLD, afib sp ablation, DM2 who presents with intermittent, but persistent chest pain for the last 3 weeks. Pt states that about 3 weeks ago she got severe pressure like pain midsternal which radiated toher jaw and was associated with sob and diaphoresis. She went to the ED where workup was negative and was sent home. Since that time, she has been to the hospital 3 more times including today. 2 weeks ago, she was admitted for the same and echo and stress test were unremarkable and she was discharged home. States that since then, she gets about an episode every other day. No related toactivity and completely random. States episodes are usually self resolving and she was using nitro if the pain persisted which helped, but today the nitro didn't help so she called EMS. Upon arrival, chest pain had resolved, but she had another episode while en route and EKG done at that time was concerning for STEMI. Cardiology immediately notified. Upon arrival, chest pain again resolved.EKG in the ED without ST elevations and intitial troponin was unremarkable. Due to her history and risk factors, cardiology recommended admission on heparin drip for cardiac cath tomorrow. At the time of exam, pt without complaints and denies chest pain, sob, abd pain, changes in appetite. Review of Systems Review of Systems All other systems reviewed & are negative unless noted below or in HPI [facility] Medical History (Updated 04/28/23 @ 21:54 by Olu Hull DO) Depression Diabetes HTN (hypertension) Hyperlipemia Psoriasis Surgical History H/O prior ablation treatment Meds Medications and Allergies Allergies menotropins [From Repronex] Allergy (Verified 04/28/23 18:49) Agitated Home Medications aspirin 81 mg tablet,delayed release 81 mg PO DAILY 04/28/23 [History Confirmed 04/28/23] atenolol 50 mg tablet 50 mg PO DAILY 04/28/23 [History Confirmed 04/28/23] glimepiride 4 mg tablet 4 mg PO DAILY 04/28/23 [History Confirmed 04/28/23] hydroxyzine pamoate 25 mg capsule 25 mg PO DAILY 04/28/23 [History Confirmed 04/28/23] lisinopril 10 mg tablet 10 mg PO DAILY 04/28/23 [History Confirmed 04/28/23] metformin 850 mg tablet 850 mg PO BID 04/28/23 [History Confirmed 04/28/23] nitroglycerin 0.4 mg sublingual tablet 0.4 mg sublingual DIRECTED PRN Chest Pain 04/28/23 [History Confirmed 04/28/23] pioglitazone 30 mg tablet 30 mg PO DAILY 04/28/23 [History Confirmed 04/28/23] pravastatin 80 mg tablet 80 mg PO DAILY 04/28/23 [History Confirmed 04/28/23] sertraline 25 mg tablet 25 mg PO DAILY 04/28/23 [History Confirmed 04/28/23] Exam Physical Exam Vital Signs: Temp Pulse Resp BP Pulse Ox O2 Del Method 98.4 F 73 16 123/57 L 100 Room Air 04/28/23 18:47 04/28/23 20:30 04/28/23 20:30 04/28/23 20:30 04/28/23 20:30 04/28/23 20:30 Narrative: General: Awake and alert. Lying in bed comfortably HEENT: Normocephalic, atraumatic, trachea midline Respiratory: good inspiratory effort, clear to auscultation, no wheeze, no rhonchi, no crackles Cardiovascular: RRR, normal S1 and S2 Abdominal: soft, non-distended, no tenderness, no rebound, no guarding, +BS Skin: warm, dry, no lesions or rashes MSK: no edema Neurologic: No focal deficits Psych: appropriate affect Results Lab Results Labs: Laboratory Last Values Corrected WBC 11.5 X10E3/uL (3.8-11.6) 04/28/23 18:46 Uncorrected WBC Count 11.5 x10E3/uL (3.8-11.6) 04/28/23 18:46 RBC 4.00 X10E6/uL (3.60-5.00) 04/28/23 18:46 Hgb 11.9 g/dL (11.8-15.4) 04/28/23 18:46 Hct 36.7 % (34.0-46.4) 04/28/23 18:46 MCV 91.8 fl (80-100) 04/28/23 18:46 MCH 29.7 pg (24.7-34.3) 04/28/23 18:46 MCHC 32.4 g/dL (32.0-35.0) 04/28/23 18:46 RDW 13.8 % (11.9-15.3) 04/28/23 18:46 Plt Count 241 x10E3/uL (150-450) 04/28/23 18:46 MPV 8.5 fl (6.3-10.7) 04/28/23 18:46 Neut % (Auto) 78.5 % (.) 04/28/23 18:46 Lymph % (Auto) 12.1 % (.) 04/28/23 18:46 Piatt % (Auto) 7.4 % (.) 04/28/23 18:46 Eos % (Auto) 0.5 % (.) 04/28/23 18:46 Baso % (Auto) 1.5 % (.) 04/28/23 18:46 Nucleat RBC Rel Count 0.0 /100 WBC (0-0.5) 04/28/23 18:46 Neut # (Auto) 9.0 x10E3/uL (1.8-7.7) H 04/28/23 18:46 Lymph # (Auto) 1.4 x10E3/uL (1.00-4.8) 04/28/23 18:46 Piatt # (Auto) 0.8 x10E3/uL (0.0-0.8) 04/28/23 18:46 Eos # (Auto) 0.1 x10E3/uL (0.0-0.45) 04/28/23 18:46 Baso # (Auto) 0.2 x10E3/uL (0.0-0.2) 04/28/23 18:46 Monocyte Dist Width 19.54 % (0.00-20.00) 04/28/23 18:46 PT 11.4 Seconds (9.0-12.9) 04/28/23 18:46 INR 1.0 04/28/23 18:46 APTT 20.8 Seconds (25.1-36.5) L 04/28/23 18:46 PHA Creatinine Clear 60.21 04/28/23 18:46 Sodium 140 mmol/L (136-145) 04/28/23 18:46 Potassium 4.1 mmol/L (3.5-5.1) 04/28/23 18:46 Chloride 113 mmol/L (98-107) H 04/28/23 18:46 Carbon Dioxide 20.8 mmol/L (21.0-31.0) L 04/28/23 18:46 Anion Gap 10.3 mEq/L (6.0-15.0) 04/28/23 18:46 BUN 21 mg/dL (7-25) 04/28/23 18:46 Creatinine 0.93 mg/dL (0.60-1.20) 04/28/23 18:46 Est GFR (CKD-EPI) > 60.0 mL/Min 04/28/23 18:46 Glucose 166 mg/dL (70-100) H 04/28/23 18:46 Calcium 8.7 mg/dL (8.6-10.3) 04/28/23 18:46 Total Creatine Kinase 30 U/L (30-223) 04/28/23 18:46 Troponin I High Sens 3.8 pg/mL (0.0-15.0) 04/28/23 18:46 B-Natriuretic Peptide 140.0 pg/mL (5-100) H 04/28/23 18:46 Urine Color Yellow (Yellow) 04/28/23 19:30 Urine Appearance Cloudy (Clear) A 04/28/23 19:30 Urine pH 6.0 (5.0-9.0) 04/28/23 19:30 Ur Specific [place] 1.023 (1.001-1.030) 04/28/23 19:30 Urine Protein 100 mg/dL (Negative) H 04/28/23 19:30 Urine Glucose (UA) 250 mg/dL (Normal) H 04/28/23 19:30 Urine Ketones 1+ (Negative) H 04/28/23 19:30 Urine Occult Blood Negative (Negative) 04/28/23 19:30 Urine Nitrite Negative (Negative) 04/28/23 19:30 Urine Bilirubin Negative (Negative) 04/28/23 19:30 Urine Urobilinogen Normal mg/dL (Normal) 04/28/23 19:30 Ur Leukocyte Esterase 2+ (Negative) H 04/28/23 19:30 Urine RBC 5-9 /HPF (0-4) H 04/28/23 19:30 Urine WBC 20-49 /HPF (0-4) H 04/28/23 19:30 Ur Squamous Epith Cells 10-19 /HPF (0-2) H 04/28/23 19:30 Ur Renal Epithelial Cell N/A 04/28/23 19:30 Urine Bacteria None seen (None Seen) 04/28/23 19:30 Hyaline Casts 20-49 /LPF (0-1) H 04/28/23 19:30 Assessment & Plan Assessment/Plan (1) Unstable angina: (2) ST segment changes on electrocardiogram: Plan # Unstable angina - for last 3 weeks where workup has included unremarkable stress test, cardiac enzymes and EKG's - today had episode of chest pain en route and EMS EKG noted ST elevations whichwere not present on repeat EKG in the ED. ED spoke with cardiology who recommended heparin drip and NPO at midnight for cardiac cath given risk factorsand history - initial troponin unremarkable. Will trend - cardiology consulted - cont heparin drip. NPO at midnight - cont asa/statin - tele - nitro prn # HTN/HLD/PAF - cont home meds # DM2 - holding Po meds. ISS while admitted. Resume home regimen at discharge # Anxiety - cont home meds Disposition: Pt with 3 weeks of unstable angina with largely unremarkable workupincluding stress test, echo, EKG's and cardiac enzymes. Due to risk factors and history/presentation, cardiology recommended admission on heparin drip for cardiac cath tomorrow. Trending troponin IP vs OBS Justification Based on differential dx, clinical care plan, and risk of adverse events, if untreated, in my clinical judgement this patient requires an acute care setting as: OBSERVATION because of an expectation of an under 2 midnight stay. Estimated length of stay (# of days): 2 Time Spent With Patient (min): 45 Documented By: Olu Hull DO 04/28/23 214 8 Signed By: <Electronically signed by Olu Hull DO> 04/28/23 2158 [facility] Work Phone: [facility] general Narrative - Reported* Type Description Date Medical History HTN Medical History High Cholesterolemia Medical History Depression Medical History Migraines Medical History Diabetes Surgical History Right knee arthroscopy Surgical History Left knee repair due to break Surgical History T&A Surgical History BTL Surgical History left breast biopsy 04/2017 Surgical History tubal ligation Surgical History ablasion heart Surgical History Left ankle surgery Dr. Mak 12/2021 Hospitalization History See past surgical hx [facility] Other History general Narrative - Reported* Type Description Date Medical History HTN Medical History High Cholesterolemia Medical History Depression Medical History Migraines Medical History Diabetes Medical History CAD (coronary artery disease) Surgical History Right knee arthroscopy Surgical History Left knee repair due to break Surgical History T&A Surgical History BTL Surgical History left breast biopsy 04/2017 Surgical History tubal ligation Surgical History ablasion heart Surgical History Left ankle surgery Dr. Mak 12/2021 Surgical History cardiac stent Hospitalization History See past surgical hx [facility] Other Hospital Discharge instructions Additional Instructions Take the antibiotic cephalexin twice a day for 7 days take until completed Rest as needed Increase oral fluids Continue your other medication Follow-up with your family doctor Follow-up with cardiology Return to the ER for chest pain shortness of breath worsening dizziness fever vomiting or [facility]: Hospital Discharge instructions No data available for this section [facility] Progress note Author W Marck [facility] April 30, 2023 4:36pm Note Date/Time April 30, 2023 4:36pm [facility] [address] [place] [address] Cardiology Progress Note Signed Patient: Brenda Segura MR#: [id number] : 1960 Acct:[id number] Age/Sex: 62 / F Adm Date: 3 Loc: Room: [address] [place] [address] Type: ADM IN Attending Dr: Simone Martinez DO Copies to: ~ Date of Service: 04/30/2023 Subjective Principal diagnosis: Aborted inferior STEMI Interval history: Ms. Segura is a 62 year old female seen in interventional cardiology consultation at the request of Dr. Card ER attending last evening and hospitalist this morning in female [facility] rated on a scale of 10 out of 10 initially, improved with aspirin and sublingual nitroglycerin spray in the squad. Initial ECG revealed inferior STEMI injury current however second ECG revealed resolution and upon arrival to the ER complete normalization of the ECG. Notably, patient has been to [facility] ERs in the recent past for chest discomfort reportedly with negativework-up per her report Patient was discussed with ER attending last evening, she was admitted and placed on nitroglycerin paste and heparin drip for consideration of early invasive management today. Fortunately, troponins remain negative, ECG remains normal Risk factors are noted for diabetes, hypertension, tobacco use (quit in February) x40 years. There is no prior history of myocardial infarction, revascularization, stroke, thromboembolic or bleeding disorder. MORENO risk score because of presentation, ECG abnormalities, risk factors is elevated at 4 consistent with moderate risk. Basically this represents an aborted inferior STEMI by ECG criteria and fortunately no evidence of myonecrosis with normal high-sensitivity troponins. Risks, benefits and alternatives informed decision-making process performed withthe patient for 30 minutes this afternoon we will proceed with cardiac catheterization and possible revascularization of culprit vessel. Interim evaluation 04/30/2023: Patient is stable without any post PCI complications. No recurrent angina, hematoma, shortness of breath or arrhythmias. Patient's medications of been appropriately adjudicated, troponin peaked at 42. 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 Exam Physical Exam Vital Signs: Temp Pulse Resp BP Pulse Ox O2 Del Method 98.2 F 62 16 130/83 98 Room Air 04/30/23 12:00 04/30/23 12:00 04/30/23 12:00 04/30/23 12:00 04/30/23 12:00 04/30/23 12:00 Const General: cooperative, healthy appearing, comfortable, no acute distress, well developed and well groomed Nutritional Appearance: average body habitus Orientation: alert, awake and oriented x3 HEENT Head: normal to inspection Eyes General: appearance normal, both eyes and all related structures Neck Neck: normal visual inspection Chest Chest palpation & inspection: normal inspection of the chest Resp Effort & Inspection: normal respiratory effort Auscultation: clear to auscultation bilaterally Cardio Palpation: normal PMI Rate: regular rate Rhythm: regular rhythm Heart Sounds: S1 normal, S2 normal and no murmurs Bruits: no carotid bruits Pulses: radial pulses present, femoral pulses present and dorsalis pedis present GI Inspection: normal to inspection Palpation: soft Skin General: no rashes or lesions noted Neuro General: patient alert, patient awake and patient oriented x3 Cognition: normal cognition Speech: speech normal Extrem General: normal to inspection Objective Labs 04/30/23 04:14 04/30/23 04:14 Labs: Laboratory Results - last 24 hr 04/29/23 04/29/23 04/30/23 12:32 17:07 04:14 Corrected WBC 8.8 Uncorrected WBC Count 8.8 RBC 4.04 Hgb 12.2 Hct 37.0 MCV 91.4 MCH 30.2 MCHC 33.1 RDW 13.6 Plt Count 230 MPV 8.5 Neut % (Auto) 70.7 Lymph % (Auto) 17.6 Piatt % (Auto) 9.4 Eos % (Auto) 1.3 Baso % (Auto) 1.0 Nucleat RBC Rel Count 0.1 Neut # (Auto) 6.2 Lymph # (Auto) 1.5 Piatt # (Auto) 0.8 Eos # (Auto) 0.1 Baso # (Auto) 0.1 PHA Creatinine Clear Sodium Potassium Chloride Carbon Dioxide Anion Gap BUN Creatinine Est GFR (CKD-EPI) Glucose POC Glucose 107 144 POC Glucose Comment Calcium Troponin I High Sens 04/30/23 04/30/23 04/30/23 04:14 04:14 06:45 Corrected WBC Uncorrected WBC Count RBC Hgb Hct MCV MCH MCHC RDW Plt Count MPV Neut % (Auto) Lymph % (Auto) Piatt % (Auto) Eos % (Auto) Baso % (Auto) Nucleat RBC Rel Count Neut # (Auto) Lymph # (Auto) Piatt # (Auto) Eos # (Auto) Baso # (Auto) PHA Creatinine Clear 72.72 Sodium 140 Potassium 4.2 Chloride 108 H Carbon Dioxide 24.8 Anion Gap 11.4 BUN 14 Creatinine 0.77 Est GFR (CKD-EPI) > 60.0 Glucose 142 H POC Glucose 127 POC Glucose Comment Glu2: cleaned meter Calcium 9.0 Troponin I High Sens 42.2 H 04/30/23 11:59 Corrected WBC Uncorrected WBC Count RBC Hgb Hct MCV MCH MCHC RDW Plt Count MPV Neut % (Auto) Lymph % (Auto) Piatt % (Auto) Eos % (Auto) Baso % (Auto) Nucleat RBC Rel Count Neut # (Auto) Lymph # (Auto) Piatt # (Auto) Eos # (Auto) Baso # (Auto) PHA Creatinine Clear Sodium Potassium Chloride Carbon Dioxide Anion Gap BUN Creatinine Est GFR (CKD-EPI) Glucose POC Glucose 124 POC Glucose Comment Glu2: cleaned meter Calcium Troponin I High Sens A&P - Cardiology (1) ST segment changes on electrocardiogram: Code(s): R94.31 - Abnormal electrocardiogram [ECG] [EKG] Status: Acute (2) Unstable angina: Code(s): I20.0 - Unstable angina Status: Acute (3) Diabetes: Code(s): E11.9 - Type 2 diabetes mellitus without complications Status: Acute (4) HTN (hypertension): Code(s): I10 - Essential (primary) hypertension Status: Acute (5) Hyperlipemia: Code(s): E78.5 - Hyperlipidemia, unspecified Status: Acute (6) Former tobacco use: Code(s): Z87.891 - Personal history of nicotine dependence Status: Acute Documented By: Annabel Acharya DO 04/30/23 1634 Signed By: <Electronically signed by Annabel Acharya DO> 04/30/23 1636 [facility] Work Phone: Progress note No data available for this section [facility] reason for referral (narrative)* Consultation (Routine) - Authorized Specialty Diagnoses / Procedures Referred By Contac t Referred To Contact Cardiology Diagnoses 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 Procedures Follow Up In Cardiology Mahamed Acharya DO [address] [facility] [address], [address] [address] Mahamed Acharya DO [address] [place] [address] [address], [address] [place] [address] Referral ID Status Reason Start Date Expiration Date V isits Requested Visits Authorized [id number] Authorized 12/17/2023 12/16/2024 1 1 [facility] [place] Work Phone: Advance Directives Advance Directive Response Recorded Date/ Time Advance Directives No January 11 12:37pm Advance Directive Response Recorded Date/ Time Advance Directives No January 11 1:37pm Summary Purpose Family History Relationship Condition Age at Onset Recorded Date/T stacie father Myocardial infarction Unknown Diabetes mellitus Unknown brother Diabetes mellitus Unknown family member Malignant neoplasm Unknown Unknown Family Member Name Dates Details Family history of hypertensi on: Mother(V17.49, Z82.49) Status:Active Family history of myocardial infarction: Father(V17.3, Z82.49) Status:Active Family history of diabetes m ellitus: Father(V18.0, Z83.3) Status:Active No pertinent family history: Sister(V49.89, Z78.9) Status:Active Family history of CABG: Brot her(V17.49, Z82.49) Status:Active Unknown Family Member Name Dates Details Family history of hypertensi on: Mother(V17.49, Z82.49) Status:Active Family history of myocardial infarction: Father(V17.3, Z82.49) Status:Active Family history of diabetes m ellitus: Father(V18.0, Z83.3) Status:Active No pertinent family history: Sister(V49.89, Z78.9) Status:Active Family history of CABG: Brot her(V17.49, Z82.49) Status:Active Relationship Condition Age at Onset Recorded Date/T stacie father Myocardial infarction Unknown Diabetes mellitus Unknown brother Diabetes mellitus Unknown family member Malignant neoplasm Unknown father Heart disease Unknown Hypertension Unknown Unknown family member Unknown mother Hypertension Unknown Chief Complaint and Reason for Visit Chief Complaint Dysuria Chief Complaint R30.0 Chest Pain Reason for Visit ST segment changes o n electrocardiogram Unstable angina Chief Complaint R30.0 Chest Pain Reason for Visit Atherosclerotic card iovascular disease Diabetes Former tobacco use HTN (hypertension) Hyperlipemia ST segment changes on electrocardiogram Unstable angina Chief Complaint Chest Pain R30.0 dizzy, ill Reason for Visit Atherosclerotic card iovascular disease Diabetes Former tobacco use HTN (hypertension) Hyperlipemia ST segment changes on electrocardiogram Unstable angina Chief Complaint Admit Date Poss UTI July 22, 2024 4:23pm Dysuria July 22, 2024 4:24pm establish October 04, 2024 8:48am Reason for Visit Admit Date Dysuria July 22, 2024 4:23pm CAD (coronary artery disease) September 242024 8:48am High cholesterol October 04, 2024 8:48am Pain in both upper extremities October 04, 2024 8:48am Type 2 diabetes mellitus with hyperglyce wilder October 04, 2024 8:48am Wellness examination October 04, 2024 8:48am Additional Source Comments REASON FOR VISIT (unrecogniz ed section and content) Reason Comments Follow-up 6m Specialty Diagnoses / Procedures Referred By John t Referred To Contact Cardiology Diagnoses 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 Procedures Follow Up In Cardiology Mahamed Acharya, DO [address] [facility] [address], [address] [place] [address] Phone: tel: fax: Mahamed Acharya, DO [address] [place] [address] Phone: tel: fax: Referral ID Status Reason Start Date Expiration Date V isits Requested Visits Authorized [id number] Authorized 12/17/2023 12/16/2024 1 1 Reason Comments Received Outside Medical Records Reason Comments Annual Exam Reason Comments Follow-up Care Teams (unrecognized sec tion and content) Team Status: Inactive Member Role Status Dates RJ Bagley Attending Provider Active Team Status: Inactive Member Role Status Dates Kathya Chang APRN Attending Provider Active Team Status: Active Member Role Status Dates Bonita Santos DO Primary Care Provider Active Team Status: Inactive Member Role Status Dates Kathya Chang APRN Attending Provider Active PHYSICIAN NO FAMILY Primary Care Provider Active Team Status: Active Member Role Status Dates Joe Meneses PA-C Emergency Provider Active Bonita Santos , Primary Care Provider Active Olu Hull , DO Admit Provider, Attending Provid er Active Team Status: Inactive Member Role Status Dates Joe Meneses PA-C Emergency Provider Active Bonita Santos , Primary Care Provider Active Olu Hull , DO Admit Provider Active Simone Martinez DO Attending Provider Active Apricot Packer Relationship Specialty Start Date End Date Sergio Mcknight [address] [place] [address] PCP - General 08/05/04 Team Status: Inactive Member Role Status Dates Bonita Santos DO Primary Care Provider Active Chloé Shea APRN ACTIVITIES SPECIALIST-C Attending Provider Act rico Team Status: Inactive Member Role Status Dates Bonita Santos DO Primary Care Provider Active HARVEY OdonnellP-BC Emergency Provider Active Apricot Packer Relationship Specialty Start Date End Date Bonita Santos DO [address] [place] [address] PCP - General 05/08/23 Apricot Packer Relationship Specialty Start Date End Date Chloé Cummings MD [address] [place] [address] PCP - General Family Medicine 11/26/23 Dominic Ballard NP [address] [place] [address] Nurse Practitioner Family Medicine 11/26/23 Apricot Packer Relationship Specialty Start Date End Date Chloé Cummings MD [address] [place] [address] PCP - General Family Medicine 11/26/23 Dominic Ballard NP [address] [place] [address] Nurse Practitioner Family Medicine 11/26/23 Apricot Packer Relationship Specialty Start Date End Date Chloé Cumminsg MD [address] [place] [address] PCP - General Family Medicine 11/26/23 Dominic Ballard NP [address] [place] [address] Nurse Practitioner Family Medicine 11/26/23 Apricot Packer Relationship Specialty Start Date End Date Chloé Cummings MD [address] [place] [address] PCP - General Family Medicine 11/26/23 Dominic Ballard NP [address] [place] [address] Nurse Practitioner Family Medicine 11/26/23 Apricot Packer Relationship Specialty Start Date End Date Bonita Santos [address] [place] [address] PCP - General 05/08/23 Apricot Packer Relationship Specialty Start Date End Date Chloé Cummings MD [address] [place] [address] PCP - General Family Medicine 11/26/23 Dominic Ballard NP [address] [place] [address] Nurse Practitioner Family Medicine 11/26/23 Apricot Packer Relationship Specialty Start Date End Date Chloé Cummings MD [address] [place] [address] PCP - General Family Medicine 11/26/23 Dominic Ballard NP [address] [place] [address] Nurse Practitioner Family Medicine 11/26/23 Apricot Packer Relationship Specialty Start Date End Date Chloé Cummings MD [address] [place] [address] PCP - General Family Medicine 11/26/23 Dominic Ballard NP [address] [place] [address] Nurse Practitioner Family Medicine 11/26/23 Apricot Packer Relationship Specialty Start Date End Date Chloé Cummings MD [address] [facility] [place] [address] PCP - General Family Medicine 11/26/23 Dominic Ballard NP [address] [facility] [place] [address] Nurse Practitioner Family Medicine 11/26/23 Apricot Packer Relationship Specialty Start Date End Date Chloé Cummings MD [address] [facility] [place] [address] PCP - General Family Medicine 11/26/23 Domniic Ballard NP [address] [facility] [place] [address] Nurse Practitioner Family Medicine 11/26/23 Apricot Packer Relationship Specialty Start Date End Date Chloé Cummings MD [address] [facility] [place] [address] PCP - General Family Medicine 11/26/23 Dominic Ballard NP [address] [facility] [place] [address] Nurse Practitioner Family Medicine 11/26/23 Team Status: Active Member Role Status Dates NON STAFF Primary Care Provider Active Team Status: Inactive Member Role Status Dates Bonita Santos DO Primary Care Provider Active Start: July 22, 2024 End: July 22, 2024 Ciera Saldana APRN Attending Provider Active S tart: July 22, 2024 End: July 22, 2024 Team Status: Inactive Member Role Status Dates Ciera Saldana APRN Attending Provider Active S tart: July 22, 2024 End: July 22, 2024 NON STAFF Primary Care Provider Active Start: July 22, 2024 End: July 22, 2024 Team Status: Inactive Member Role Status Dates NON STAFF Primary Care Provider Active Start: October 04, 2024 End: October 04, 2024 Shelly Covarrubias MD Attending Provider Active St art: October 04, 2024 End: October 04, 2024 Goals (unrecognized section and content) Goals may be documented in a n alternate section INFORMATION SOURCE (unrecogn ized section and content) DATE CREATED AUTHOR 11/04/2022 [facility] DATE CREATED AUTHOR AUTHOR'S ORGANIZ ATION 01/05/2023 [facility] DATE CREATED AUTHOR AUTHOR'S ORGANIZ ATION 01/30/2023 [facility] DATE CREATED AUTHOR AUTHOR'S ORGANIZ ATION 05/05/2023 [facility] DATE CREATED AUTHOR AUTHOR'S ORGANIZ ATION 05/10/2023 [facility] DATE CREATED AUTHOR AUTHOR'S ORGANIZ ATION 06/23/2024 [facility] DATE CREATED AUTHOR AUTHOR'S ORGANIZ ATION 07/24/2024 The [facility] DATE CREATED AUTHOR AUTHOR'S ORGANIZ ATION 08/26/2024 [facility] EPIC DATE CREATED AUTHOR AUTHOR'S ORGANIZ ATION 09/21/2024 [facility] DATE CREATED AUTHOR AUTHOR'S ORGANIZ ATION 09/24/2024 [facility] DATE CREATED AUTHOR AUTHOR'S ORGANIZ ATION 09/28/2024 [facility] Source Comments (unrecognize d section and content) In the event this informatio n is protected by the Federal Confidentiality of Alcohol and Drug Abuse Patient Records regulations: The Federal rules restrict any use of the information to criminally investigate or prosecute any alcohol or drug abuse patient.[facility] FOR RECORDS PERTAINING TO PATIENTS WHO ARE OR HAVE BEEN ENROLLED IN A CHEMICAL DEPENDENCY/SUBSTANCEABUSE PROGRAM, SOME INFORMATION MAY BE OMITTED. This clinical summary was aggregated from multiple sources. Caution should be exercised in using it in the provision of clinical care. This summary normalizes information from multiple sources, and as a consequence, information in this document may materially change the coding, format and clinical context of patient data. In addition, data may be omitted in some cases. CLINICAL DECISIONS SHOULD BE BASED ON THE PRIMARY CLINICAL RECORDS. [employer] provides no warranty or guarantee of the accuracy or completeness of information in this document.
[2024-10-05 10:37] LABS: Basophils Absolute Auto 0.1 10^3/uL (0.0-0.1); Basophils Percent Auto 0.5 % (0.2-2.0); Eosinophils Absolute Auto 0.1 10^3/uL (0.0-0.7); Eosinophils Percent Auto 1.3 % (0.9-7.0); Hematocrit 42.7 % (36.0-48.0); Hemoglobin 13.5 g/dL (12.0-16.0); Immature Granulocytes Abs Auto 0.06 10^3/uL (0.00-0.03); Immature Granulocytes Pct Auto 0.6 % (0.0-0.5); Lymphocytes Absolute Auto 1.8 10^3/uL (1.2-3.8); Mean Corpuscular HGB Conc 31.6 g/dL (29.9-35.2); Mean Corpuscular Hemoglobin 28.7 pg (26.7-34.0); Mean Corpuscular Volume 90.9 fL (81.0-99.0); Mean Platelet Volume 9.7 fL (9.5-13.5); Monocytes Absolute Auto 0.6 10^3/uL (0.3-0.8); Monocytes Percent Auto 6.6 % (1.7-12.0); Neutrophils Absolute Auto 6.7 10^3/uL (1.4-6.5); Platelet Count 364 10^3/uL (150-450); Red Cell Distribution Width 12.7 % (11.0-15.0); White Blood Count 9.4 10^3/uL (4.0-11.0)
[2024-10-05 10:55] LABS: Alanine Aminotransferase 23 U/L (14-59); Albumin Globulin Ratio 0.9; Albumin Level 3.6 g/dL (3.4-5.0); Alkaline Phosphatase 117 U/L (46-116); Anion Gap 13.7; Aspartate Amino Transferase 14 U/L (15-37); BUN Creatinine Ratio 15.3; Bilirubin Total 0.2 mg/dL (0.2-1.0); Calcium 9.3 mg/dL (8.5-10.1); Carbon Dioxide 25.8 mmol/L (21.0-32.0); Chloride 105 mmol/L (98-107); Chol HDL Ratio 4.2; Cholesterol 222 mg/dL (<=200); Estimated GFR (African America >60 (>=60 mL/min/1.73m^2); Estimated GFR (Non-African Ame >60 (>=60 mL/min/1.73m^2); Globulin 4.2 g/dL; Glucose 155 mg/dL (74-106); HDL Cholesterol 53 mg/dL (40-60); Potassium 4.5 mmol/L (3.5-5.1); Sodium 140 mmol/L (136-145); Total Protein 7.8 g/dL (6.4-8.2); Triglycerides 128 mg/dL (<=150); VLDL CHOLESTEROL 25.6 mg/dL
== END 2024-10-05 09:48 | disposition home or self-care (01) ==
LOC: LAB 09:47
PROVIDERS: PCP Family Medicine; Visit Provider Dermatology
DX: L40.0 Psoriasis vulgaris (principal); Z79.899 Other long term (current) drug therapy
CPT/HCPCS: 36415; 80053; 80061; 85025; 86480

== ENCOUNTER 2024-10-05 09:50 | Outpatient (OUT) | payer OTHER, SELFPAY ==
--- NOTE | 2024-10-05 10:10 | XR_ITS ---
The [address] [address] Patient Name: BRENDA YANG MRN: [id number] date: 1960 Sex: F Assigned Patient Location: LAB Current Patient Location: Accession/Order Number: [id number] Exam Date: 10/05/2024 10:13 Report Date: 10/06/2024 09:25 At the request of: AMY LIZAMA Procedure: XR cervical spine 5V EXAMINATION: XR cervical spine 5V HISTORY: Right Arm Pain COMPARISON: No relevant comparison available. FINDINGS: BONES: Normal height and alignment of the vertebral bodies; no fracture spinal listhesis. Multilevel mild degenerative facet arthropathy with mild bone encroachment on the C2-3 neural foramen. DISC SPACES: No significant disc height narrowing, subluxation, or endplate abnormality. PARASPINOUS: Negative. No paraspinous abnormality is seen. OTHER: Negative. XR/XR cervical spine 5V IMPRESSION: 1. No acute bone abnormality. 2. Moderate narrowing of the C2-3 neural foramen bilaterally secondary to vertebral joint spurring and mild degenerative facet arthropathy. Electronically authenticated by: CLARA GARCIA Date: 10/06/2024 09:25
[2024-10-05 10:47] LABS: Estimated Average Glucose 157 mg/dL; Glycohemoglobin A1C 7.1 % (4.5-6.2)
[2024-10-05 10:56] LABS: Erythrocyte Sedimentation Rate 46 mm/hr (<=30)
[2024-10-05 10:56] LABS: Microalbum Creatinine Ratio Ur 29.5 mg/g (0.0-29.9); Microalbumin Urine Random 3.2 mg/dL (<=30.0)
== END 2024-10-05 09:51 | disposition home or self-care (01) ==
LOC: LAB 09:51
PROVIDERS: PCP Family Medicine; Visit Provider Family Medicine
DX: Z00.00 Encounter for general adult medical examination without abnormal findings (principal); I25.10 Atherosclerotic heart disease of native coronary artery without angina pectoris; E78.00 Pure hypercholesterolemia, unspecified; E11.65 Type 2 diabetes mellitus with hyperglycemia; M79.601 Pain in right arm; M79.602 Pain in left arm; L40.0 Psoriasis vulgaris; Z79.899 Other long term (current) drug therapy
CPT/HCPCS: 36415; 72050; 82043; 82570; 82728; 83036; 85652

== ENCOUNTER 2024-11-25 08:53 | Outpatient (OUT) | payer OTHER, SELFPAY ==
--- NOTE | 2024-11-25 09:04 | MR_ITS ---
The [address] [address] Patient Name: BRENDA YANG MRN: [id number] date: 1960 Sex: F Assigned Patient Location: MRI Current Patient Location: MRI Accession/Order Number: [id number] Exam Date: 11/25/2024 11:48 Report Date: 11/25/2024 11:57 At the request of: MEGAN CEDILLO Procedure: MR cervical spine wo con EXAMINATION: MRI OF THE CERVICAL SPINE WITHOUT CONTRAST CLINICAL DATA: Neck pain with radiation to the upper extremities. No injury. COMPARISON: Plain films 10/06/2024 TECHNIQUE: Multiecho imaging was performed in the sagittal and axial plane without contrast administration. FINDINGS: Alignment is maintained on the sagittal images. There is normal signal intensity within the imaged bone marrow. There is a normal cervicomedullary junction. The cord is normal in caliber and signal intensity throughout its imaged course. Shotty cervical lymph nodes are visualized. At C2-3 and C3-4, there is no disc disease or stenosis. At C4-5, there is minor disco-osteophytic bulging with slight thecal sac effacement though no cord impingement. The neural foramen are patent. At C5-6, there is disco-osteophytic bulging, slightly asymmetric in the left parasagittal region. Mild effacement of the thecal sac is present though no cord compression is seen. No foraminal stenosis is noted. At C6-7, there is minor disco-osteophytic bulging with slight thecal sac effacement. There is no foraminal stenosis. At the cervicothoracic junction, no MRI abnormalities are seen. MR/MR cervical spine wo con IMPRESSION: MILDLY TO LOWER CERVICAL DISCOVERTEBRAL DEGENERATIVE CHANGES, WITHOUT SIGNIFICANT ASSOCIATED STENOSIS. Impression dictated by: Consuelo Barnes M.D.11/25/2024 11:57 AM Dictation Location: [place] [address] Electronically authenticated by: [id number] Y Date: 11/25/2024 11:57
== END 2024-11-25 08:54 | disposition home or self-care (01) ==
PROVIDERS: PCP Family Medicine; Visit Provider Physician Assistant
DX: M50.30 Other cervical disc degeneration, unspecified cervical region (principal); M54.12 Radiculopathy, cervical region
CPT/HCPCS: 72141

== ENCOUNTER 2025-05-12 12:22 | Emergency (ER) | payer MEDICARE, SELFPAY ==
[2025-05-12] VITALS (12 sets, daily range): BP systolic 128–154; BP diastolic 71–98; PULSE 66–76; TEMP 36.7; O2SAT 96–100; BMI 23.5
--- OUTSIDE RECORDS SUMMARY | 2025-05-12 12:36 | XMS_ITS | CCD ---
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 Name Role Phone Janet Acevedo Unavailable Maria Esther Ashby Unavailable RJ Ashby Attending Provider Huy MARES, Tommy Alva Attending Unavailab ashlee Quick PA-C, Rajni Valiente Referring Unava ilable Danielle DO, Bonita Ena Primary Care Unavailabl e Danielle DO, Bonita Ena Primary Care Unavailluz marina e Huy MARES, Tommy Alva Attending Unavailab ashlee Reis DPM, Tommy Alva Attending Unavailab le Danielle DO, Bonita Ena Primary Care Unavailabl e Danielle DO, Bonita Ena Primary Care Unavailluz marina e Huy DPM, Tommy Alva Attending Unavailab le Danielle DO, Bonita Ena Primary Care Unavailabl e [...] JORGE Whitley Admitting Unavailable GOFF ., DR OJRGE Whitley Attending Unavailable MISC, DR PAIGE Consulting [...] Kathya Chang Unavailable GENEVIEVE Chang Attending Provider NO FAMILY, PHYSICIAN Primary Care Provider Unava ilable HARISH Meneses Emergency Provider [phone] DO Bonita Santos Primary Care Provider VenturaDO Olu Admit Provider HullDO Olu Attending Provider HARISH Meneses Emergency Provider [phone] DO Bonita Santos Primary Care Provider VenturaDO Olu Admit Provider DO Simone Martinez Attending Provider Sergio Mcknightd Primary Care Provider Bonita Santos Unavailable Unavailable Unavailable Marck, Dr. Mahamed Encinas Attending Unava tammy Acharya, Dr. Mahamed Encinas Attending Unava ilvicki Acharya, Dr. Mahamed Encinas Referring Unava ilvicki Acharya, Dr. Mahamed Encinas Attending Unava ilChloé Holloway Unavailable [phone] HARISH Meneses Emergency Provider DO Bonita Santos Primary Care Provider VenturaDO Olu Admit Provider [phone] DO Simone Martinez Attending Provider GENEVIEVE Shea Attending Provider Cornelio, [facility]- Emily Anne Emergency Provider Bonita Santos DO Primary Care Provider [phone] NONE, XXXX Primary Care Physician Unavailab Chloé Phipps MD Primary Care Provider Nellie ELECTRIC FAN ASSEMBLER, Dominic Hartman Unavailable MAHAMED ACHARYA Attending Unavailable BONITA SANTOS Primary Care Unavailable MAHAMED ACHARYA Attending Unavailable MAHAMED ACHARYA Referring Unavailable BONITA SANTOS Primary Care Unavailable BONITA SANTOS Attending Unavailable DOMINIC BALLARD Attending Unavailab DOMINIC Latham Attending Unavailab DOMINIC Latham Referring Unavailab MATEO Biggs Attending Unavailable ZAHIRA LUNDBERG Attending Unavailable XIAO MASCORRO Attending Unavailable DOMINIC BALLARD Attending Unavailab DOMINIC Latham Attending Unavailab Ciera Agustin APRN Attending Provider [phone] NON STAFF Primary Care Provider UnavailHARISH Thomas Admitting Unavailab HARISH Kyle Attending Unavailab ashlee PIZANO, CHLOÉ Anne Attending Unavailable CHLOÉ PIZANO Attending Unavailable Joe CARTAGENA Referring Unavailable Joe CARTAGENA Admitting Unavailable Joe CARTAGENA Attending Unavailable CHLOÉ PIZANO Admitting Unavailable CHLOÉ PIZANO Attending Unavailable BONITA SANTOS Referring Unavailable CHLOÉ PIZANO Attending Unavailable Joe CARTAGENA Attending Unavailable CHLOÉ PIZANO Attending Unavailable Shu Painter APRN Attending Provider Shu Painter Admitting Unavailable Shu aPinter Attending Unavailable NON STAFF Primary Care Unavailable Ciera Saldana Admitting Unavailable Ciera Saldana Attending Unavailable Allergies Allergy Classification Reported Allergen(s) Allergy Type Date of Onset Reaction(s) Facility (20 sources) eletriptan; Translations: [Relpax TABS] Drug Allergy 5 Dizziness (finding), Dizziness, Blurred vision, Disorientated (finding) [facility] (4 sources) eletriptan; Translations: [Relpax] Drug Allergy 3 [facility] Repository (3 sources) metFORMIN; Translations: [metFORMIN] Drug Allergy [facility] Repository (20 sources) Follicle Stimulating Hormone; Translations: [menotropins] Drug Allergy 3 Agitated [facility] (1 source) eletriptan Drug Allergy 5 Unknown [facility] (1 source) metFORMIN; Translations: [metformin] Drug Allergy Diarrhea (finding) [facility] (1 source) metFORMIN Drug Allergy 1 [facility] (1 source) eletriptan Drug Allergy 5 [facility] Repository Medications Current Medications Medication [...] (Dr/Ec) Active 81 MG PO Daily April 28, 2023 12:00am aspirin 81 mg ch ewable tablet Chew 1 tablet (81 mg) once daily. Active Comment on above: Take 81 mg by mouth once daily. atenolol 50 mg oral tablet (15 sources) beta-Adrenergic Reji Start: 01-26-2025 take 1 tablet by mouth once daily Atenolol 50 mg tablet Active 50 MG PO Daily January 26, 2025 12:00am FreeTextSi tablet Orally Once a day; Note: Source Status: Not-TakingundefinedP RN; Provider: Shabbir Luevano ( ) Start: 06-07-2008 End: 04-30-2023 take 1 tablet by mouth once daily Atenolol 50 mg Tablet Discontinued 50 MG PO Daily April 28, 2023 12:00am April 30, 2023 3:30pm Comment on above: Take one(1) tablet d aily. atorvastatin 80 mg oral tablet (20 sources) [...] Active 80 MG PO Every evening April 30, 2023 12:00am cephalexin 500 mg oral capsule (11 sources) Cephalosporin Antibacterial Start: 01-17-2025 take 1 capsule by mouth three times daily Cephalexin 500 mg capsule Active 500 MG PO Three times daily 05 01January 17, 2025 12:00am Start: 06-03-2024 End: 06-08-2024 take 1 capsule [...] PO Twice daily 14 July 02, 2023 1:00am July 22, 2024 5:27pm Start: 06-18-2023 take 1 tablet by ken th every twelve hours Cephalexin 500 MG 1 tablet Orally Two times a day for 7 days May, Active clopidogrel 75 mg oral tablet (13 sources) [id number] Platelet Inhibitor Start: 12-17-2023 End: 06-22-2024 take 1 tablet by mouth once daily clopidogrel (Plavix) 75 mg tablet Indications: Coronary artery disease involving kiana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kiana heart without angina pectoris , S/P right [...] Ordered cranberry preparation 200 mg oral capsule (7 sources) Non-Standardized Food Allergenic Extract, Non-Standardized Plant Allergenic Extract Cranberry 200 MG capsule Take by mouth Active empagliflozin 10 mg oral tablet (7 sources) Sodium-Glucose Cotransporter 2 Inhibitor Start: take 1 tablet by mouth once daily Empagliflozin 10 mg tablet Active 1 TAB PO Daily January 26, 2025 12:00am FreeTextSi tablet Orally Once a day; Note: Source Status: Not-TakingundDejuan BURNS; Provider: Shabbir Luevano ( ) take 1 tablet by ken th every twenty-four hours Jardiance 10 MG 1 tablet Orally Once a day Not-Taking estradiol 0.1 mg/ml vaginal cream (8 sources) Estrogen Start: 2023 estradiol 0.1 mg/g Vag Crm 1 gm, Vaginal, MonWedFri, 42.5 gm, Refill(s) 6, [facility] #[id number], 170, cm, 12/29/23 10:37:00 EDT, Height/Length Dosing, 66, kg, 11/24/23 9:34:00 EDT, Weight Dosing Start Date: 12/29/23 Status: Ordered Start: 11-24-2023 End: 06-03-2024 Estrace 0.1 MG/GM vaginal cr eam See Instructions, 42.5 gm, Refill(s) 0, Apply pea sized amount vaginally nightly x3wks, then 3x/wk there after., [facility] #[id number], 170, cm, 11/24/23 9:34:00 EDT, Height/Length Dosing, 66, kg, 11/24/23 9:34:00 EDT, Weight Dosing 11/24/2023 06/03/2024 Discontinued Start: 11-24-2023 Estrace 0.1 mg /g Cream See Instructions, 42.5 gm, Refill(s) 0, Apply pea sized amount vaginally nightly x3wks, then 3x/wk there after., [facility] #[id number], 170, cm, 11/24/23 9:34:00 EDT, Height/Length Dosing, 66, kg, 11/24/23 9:34:00 EDT, Weight Dosing Start Date: 11/24/23 Status: Ordered ferrous sulfate 325 mg delayed release oral tablet (19 sources) Start: 02-13-2024 End: 06-17-2024 take 1 [...] PO Twice daily 180 October 04, 2024 10:26am Start: 04-28-2023 End: 10-04-2024 take 1 tablet by mouth once daily Glimepiride 4 mg Tablet Discontinued 4 MG PO Daily April 28, 2023 12:00am October 04, 2024 10:28am take 1 tablet by ken th twice daily Glimepiride 4 MG Oral Tablet TAKE 1 TABLET TWICE DAILY. Quantity: 0 Refills: 0 Ordered: 08-May-2023 DO Active Glimepiride Acti ve Glimepiride Not- Taking hydrOXYzine pamoate 25 mg oral capsule (19 sources) Antihistamine Start: 08-03-2023 End: 06-03-2024 take 1 capsule by mouth every six hours for anxiety hydrOXYzine pamoate (Vistaril) 25 MG capsule Indications: Anxiety attack (CMS/HCC) take 1 capsule by mouth every 6 hours if needed for anxiety FOR UP TO 10 DAYS 30 capsule 2 08/03/2023 06/03/2024 Discontinued Start: 04-28-2023 End: 10-04-2024 take 1 capsule by mouth once daily Hydroxyzine Pamoate 25 mg capsule Discontinued 25 MG PO Daily April 28, 2023 12:00am October 04, 2024 10:07am take 1 tablet by ken th every twenty-four hours hydrOXYzine HCl 25 MG 1 tablet as needed Orally Once a day Active 1 ml ixekizumab 80 mg/ml auto-injector (20 sources) Interleukin-17A Antagonist Start: 04-28-2023 Ixekizumab (Taltz Autoinjector) 80 mg/mL Auto-Injector Active 80 MG SUBCUT EVERY 4 WEEKS April 28, 2023 12:00am inject 1 mL by subcu taneous injection [...] tablet Active 10 MG PO Daily April 28, 2023 12:00am metFORMIN hydrochloride 850 mg oral tablet (20 sources) Biguanide Start: 04-28-2023 End: 06-17-2025 take 1 tablet by mouth twice daily Metformin 850 mg Tablet Active 850 MG PO Twice daily April 28, 2023 12:00am metoprolol tartrate 50 mg oral tablet (20 sources) beta-Adrenergic Reji Start: 11-26-2024 take 1 tablet by mouth in the morning metoprolol tartrate (Lopressor) 50 MG tablet Indications: Primary hypertension (CMS/HCC) TAKE 1 TABLET BY MOUTH IN THE MORNING AND TAKE 1 TABLET BEFORE BEDTIME 180 tablet 1 11/26/2024 Active Start: 06-22-2024 take 1 tablet by ken twice daily metoprolol tartrate (Lopressor) 50 mg tablet Indications: 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 180 tablet 3 06/22/2024 Active Start: 11-24-2023 Metoprolol tar trate 50 mg Tab 50 mg = 1 tab(s), BID Start Date: 11/24/23 Status: Ordered Start: 04-30-2023 End: 11-26-2024 take 1 tablet by mouth twice daily Metoprolol Tartrate 50 mg Tablet Active 50 MG PO Twice daily 60 April 30, 2023 12:00am take 1 capsule by mo [facility] once daily Metoprolol Succinate 50 MG 1 capsule Orally Once a day Active nitrofurantoin 100 mg oral tablet (14 sources) Nitrofuran Antibacterial Start: 11-24-2023 take 100 mg by mouth once daily nitrofurantoin 100 mg, Oral, Daily Start Date: 11/24/23 Status: Ordered Start: 04-28-2023 End: 10-04-2024 take 1 capsule by mouth once daily Nitrofurantoin Macrocrystal 100 mg capsule Discontinued 100 MG PO Daily April 28, 2023 12:00am October 04, 2024 10:07am Nitrofurantoin 1 00 MG CAPS TAKE 1 CAPSULE AT BEDTIME. Quantity: 0 Refills: 0 Ordered: 08-May-2023 DO Active Nitrostat (20 sources) Nitrate Vasodilator Start: 11-24-2023 Nitrostat SubLingual, q5min Start Date: 11/24/23 Status: Ordered Start: 04-28-2023 Nitroglycerin 0.4 mg tablet, sublingual Active 0.4 MG SUBLINGUAL As Directed as needed for Chest Pain April 28, 2023 12:00am Take one tablet every 5 minutes for cp, up to 3 doses. Start: 04-23-2023 take 1 tablet under the tongue every twenty-four hours as needed nitroglycerin (Nitrostat) 0.[address] 0.4 mg under the tongue Daily as needed. 04/23/2023 Active Nitrostat 0.4 MG as directed Sublingual Active sertraline 25 mg oral tablet (20 sources) Serotonin Reuptake Inhibitor Start: 07-28-2024 take 2 tablets by mouth once daily sertraline (Zoloft) 25 MG tablet Indications: Recurrent major depressive disorder, in partial remission (HCC) (CMS/HCC) Take 2 tablets (50 mg) by mouth Daily 90 tablet 1 07/28/2024 Active Start: 07-28-2024 take 2 tablets by mo [facility] once daily sertraline (Zoloft) 25 MG tablet [...] 06/17/2024 07/28/2024 Discontinued (Reorder) Start: 04-28-2023 End: 01-23-2025 take 1 tablet by mouth once daily Sertraline 25 mg tablet Active 25 MG PO Daily 90 January 23, 2025 3:08pm sulfamethoxazole 400 mg / trimethoprim 80 mg oral tablet (2 sources) Dihydrofolate Reductase Inhibitor Antibacterial, Sulfonamide Antimicrobial Start: 09-20-2024 End: 09-30-2024 Bactrim 400 mg-80 mg Tab 1 tab(s), Oral, BID for 10 day(s), 20 tab(s), Refill(s) 0, [facility] #[id number], 170, cm, 09/20/24 11:31:00 EST, Height/Length Dosing, 68.8, kg, 09/20/24 11:31:00 EST, Weight Dosing Start Date: 09/20/24 Stop Date: 09/30/24 Status: Ordered Completed/Discontinued Medications Medication Drug Class(es) Dates Sig (Normalized) Sig (Original) buPROPion (6 sources) Aminoketone buPROPion HCl ER (SR) Active buPROPion HCl ER (SR) Not-Taking Calcium Carbonate / vitamin D3 (1 source) take 600 mg by mouth once daily CALCIUM CARBONATE/VITAMIN D3 (CALCIUM 600 + D ORAL) Take 600 mg by mouth once daily. 0 Active Comment on above: Take 600 mg by mouth once daily. ciprofloxacin 250 mg oral tablet (6 sources) Quinolone Antimicrobial Start: 024 End: 025 take 1 tablet by mouth every twelve hours Ciprofloxacin Hcl 250 mg tablet Discontinued 250 MG PO Every 12 hours 6 3 July 22, 2024 1:00am October 04, 2024 10:06am Start: 12-02-2023 take 1 tablet by ken th once daily Cipro 500 mg Tab 500 mg = 1 tab(s), Oral, Daily, Take 1 tablet the day before the procedure and 1 tablet after the procedure, # 2 tab(s), Refills(s) 0, Pharmacy: [id number] #[id number], 170, cm, 11/24/23 9:34:00 EDT, Height/Length Dosing, [...] oral capsule (4 sources) Tetracycline-class Drug Start: 3 take 1 capsule by mouth every twelve hours Doxycycline Monohydrate 100 MG 1 capsule Orally every 12 hrs for 5 days Aug, Not-Taking estrogens, conjugated (fpc) 0.625 mg/ml vaginal cream (5 sources) Estrogen Start: 5 conjugated estrogens 0.625 mg/g vaginal cream with applicator See Instructions, 30 gm, Refill(s) 5, 1 gm vaginal nightly x 3 weeks, then 3x per week thereafter, [facility] #[id number], 170, cm, 09/20/24 11:31:00 EST, Height/Length [...] 07/14/2024 Start: 04-19-2022 take 1 capsule by [facility] every twelve hours Macrobid 100 MG 1 [...] a day for 2 day(s) Mar, Active pioglitazone 30 mg oral tablet (20 sources) Peroxisome Proliferator Receptor alpha Agonist, Peroxisome Proliferator Receptor gamma Agonist, Thiazolidinedione Start: 03-18-2023 End: 10-04-2024 take 1 tablet by mouth once daily Pioglitazone 30 mg tablet Discontinued 30 MG PO Daily April 28, 2023 12:00am October 04, 2024 10:28am pravastatin sodium 80 mg oral tablet (14 sources) HMG-CoA Reductase Inhibitor Start: 04-28-2023 End: 04-30-2023 take 1 tablet by mouth once daily Pravastatin 80 mg tablet Discontinued 80 MG PO Daily April 28, 2023 12:00am April 30, 2023 3:30pm Start: 05-24-2009 PRAVASTATIN 40 MG TAB Take one(1) tablet daily. 0 05/24/2009 Active Comment on above: Take one(1) tablet d aily. semaglutide 7 mg oral tablet (5 sources) Start: 12-15-19 End: 04-23-20 25 take 1 tablet by mouth before mealtime semaglutide (Rybelsus) 7 MG tablet Indications: 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) Take 1 tablet (7 mg) by mouth in the morning. Take before meals. 90 tablet 3 12/15/2023 06/03/2024 Discontinued ticagrelor 90 mg oral tablet (12 sources) Start: 04-30-20 End: 10-04-19 25 take 1 tablet by mouth twice daily Ticagrelor (Brilinta) 90 mg Tablet Discontinued 90 MG PO Twice daily 180 90 April 30, 2023 12:00am October 04, 2024 10:08am Triamcinolone (13 sources) Corticosteroid Start: 02-09-20 20 KENALOG - 10 mg Jan, 40 mg [...] on above: Take 400 Units by mo ut twice daily. Problems Active Problems Problem Classification Problem Date Documented Date Episodic/Chronic Acute myocardial infarction (3 sources) Acute myocardial infarction of inferior wall; Translations: [Acute myocardial infarction of other inferior wall, episode of care unspecified] Chronic Adjustment disorders (18 sources) Adjustment disorder with depressed mood; Translations: [Adjustment disorder with depressed mood] Onset: 3 09-30-2023 Chronic Anxiety disorders (20 sources) Anxiety attack ; Translations: [Panic disorder [episodic paroxysmal anxiety]] Onset: 3 09-30-2023 Chronic Cardiac dysrhythmias (19 sources) Paroxysmal supraventricular tachycardia; Translations: [Supraventricular tachycardia] Onset: 5 10-19-2014 Chronic Cataract (18 sources) Bilateral cortical age-related cataract eyes; Translations: [Cortical age-related cataract, bilateral] Onset: 8 09-30-2023 Chronic Conditions associated with dizziness or vertigo (20 sources) Dizziness; Translations: [Dizziness and giddiness] Onset: [...] 1 12-17-2023 Chronic Diabetes mellitus without complication (18 sources) Type 2 diabetes mellitus without complications; [...] with other respiratory manifestations] Episodic Menopausal disorders (20 sources) Atrophic vaginitis; Translations: [Postmenopausal atrophic vaginitis] Onset: 4 Chronic Mood disorders (20 sources) Major depressive disorder, single episode, unspecified; Translations: [Depressive disorder] Onset: 9 07-02-2023 Chronic Osteoarthritis (1 source) Primary osteoarthritis, left ankle and foot; Translations: [PRIMARY OSTEOARTHRITIS LT ANK FOOT] Onset: 3 Chronic Other connective tissue disease (4 sources) Pain in upper limb; Translations: [Pain in right arm] 10-04-2024 Episodic Other connective tissue disease (1 source) Pain in right arm; Translations: [Pain in limb] 10-04-2024 Episodic Other connective tissue disease (1 source) 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; Translations: [Palmar fascial fibromatosis [Dupuytren]] 01-27-2025 Episodic Other connective tissue disease (1 source) Palmar fascial fibromatosis [Dupuytren]; Translations: [Contracture of palmar fascia] 01-27-2025 Episodic Other diseases of bladder and urethra (3 sources) Male urethral stricture; Translations: [Unspecified urethral stricture, male, unspecified site] Onset: 4 Episodic Other ear and sense organ disorders (18 sources) Sensorineural hearing loss, bilateral; Translations: [Sensorineural hearing loss, bilateral] Onset: 3 09-30-2023 Chronic Other female genital disorders (1 source) Noninflammatory disorder of the vagina; Translations: [Other specified noninflammatory disorders of vagina] Onset: 4 Episodic Other inflammatory condition of skin (17 sources) Psoriasis; Translations: [Other psoriasis] Onset: 9 04-06-2009 Chronic Other inflammatory condition of skin (18 sources) Plaque psoriasis; Translations: [Psoriasis vulgaris] Onset: 9 09-30-2023 Chronic Other inflammatory condition of skin (16 sources) Generalized psoriasis; Translations: [Psoriasis, unspecified] Onset: [...] Onset: 3 Chronic Other nervous system disorders (18 sources) Difficulty walking; Translations: [Difficulty in walking, [...] source) Otitis media, unspecified, right ear Episodic Screening and history of mental health and substance abuse codes (20 sources) Ex-tobacco user; Translations: [Personal history of nicotine dependence] Onset: 4 04-29-2023 Episodic Comment on above: February 28, 2023 - 1ppd; Problem List clean-u p per request of Phys. EHR Cmte Spondylosis; intervertebral disc disorders; other back problems (11 sources) Sciatica; Translations: [Sciatica, right side] Onset: 3 10-21-2024 Episodic Sprains and strains (4 sources) Strain of muscle(s) and tendon(s) of peroneal muscle group at lower leg level, left leg, subsequent encounter; Translations: [STRAIN M AND T PERONEAL LOW LT LEG SUBS] Onset: 3 Episodic Substance-related disorders (20 sources) Tobacco dependence in remission; Translations: [Nicotine dependence, cigarettes, in remission] Onset: 3 09-30-2023 Chronic Unclassified (16 sources) Patient on antidepressant monitoring plan Onset: 3 04-24-2023 Unclassified (16 sources) Baseline PHQ-9 Onset: 3 04-24-2023 Urinary [...] COLITIS UNS] Onset: 02-10-2022 Episodic Mood disorders (16 sources) Mood disorders Onset: 12-15-2023 Resolved: 08-25-2024 12-15-2023 Nonspecific chest pain (18 sources) Chest pain; Translations: [Chest pain, unspecified] Onset: 04-21-2023 Resolved: 04-24-2023 09-30-2023 Episodic Other aftercare (1 source) halfway (current) use of oral hypoglycemic drugs; Translations: [MEDICAL CLERICAL ASSISTANT USE ORAL HYPOGLYCEMIC DX] Onset: 02-10-2022 Episodic Other aftercare (1 source) Other snf (current) drug therapy; Translations: [OTH [facility] CURRENT DRUG THERAPY] Onset: 02-10-2022 Episodic Other bone disease and musculoskeletal deformities (1 source) Other specified disorders of bone density and structure, left ankle and foot; Translations: [OTH D/O BONE DEN STRUCT LT ANK FOOT] Onset: 09-04-2022 Episodic Other circulatory disease (1 source) Other specified symptoms and signs involving the circulatory and respiratory systems; Translations: [OTH SPEC SX SIGNS INVLV CIRC RS] Onset: 10-22-2022 Episodic Other connective tissue disease (4 sources) Pain in left foot; Translations: [PAIN IN LEFT FOOT] Onset: 09-23-2022 Episodic Other diseases of bladder and urethra (18 sources) Urethral stricture; Translations: [Unspecified urethral stricture, male, unspecified site] Onset: 06-17-2024 05-02-2024 Episodic Other ear and sense organ disorders (18 sources) Bilateral tinnitus; Translations: [Tinnitus, bilateral] Onset: 04-14-2023 09-30-2023 Episodic Other non-traumatic joint disorders (1 source) Other specified joint disorders, left ankle and foot; Translations: [OTHER SPEC JOINT D/O LT ANKLE FOOT] Onset: 09-04-2022 Episodic Residual codes; unclassified (1 source) Other specified postprocedural states; Translations: [OTH SPECIFIED POSTPROCEDURAL STATES] Onset: 10-22-2022 Episodic Residual codes; unclassified (20 sources) Body mass index 20-24 - normal; Translations: [Body mass index (BMI) 23.0-23.9, adult] Onset: 12-17-2023 12-17-2023 Episodic Residual codes; unclassified (20 sources) Tobacco user; Translations: [Tobacco use] Onset: 10-19-2020 04-14-2023 Episodic Residual codes; unclassified (2 sources) Body mass index (BMI) 23.0-23.9, adult; Translations: [Body mass index (BMI) 23.0-23.9, adult] Onset: 12-17-2023 Episodic Septicemia (except in labor) (4 sources) Sepsis, unspecified organism; Translations: [Severe sepsis without septic shock] Onset: 02-03-2022 Episodic Results Test Name Value Interpretation Reference Range Facility Laboratory - Chemistry and C hemistry - challengeon 01-17-2025 Bilirubin Ql (U) Negative [facility] Glucose (U) [Mass/Vol] Negative [facility] Ketones Ql (U) trace [facility] pH (U) 6.0 [pH] [facility] Specific gravity (U) [Rel density] >1.030 [facility] Laboratory - Specimen inform ationon 01-17-2025 Appearance (U) clear [facility] Color (U) yellow [facility] Laboratory - Urinalysison Leukocyte esterase Test strip Ql (U) trace [facility] Nitrite Ql (U) Negative [facility] Protein Ql (U) 100mg/dL [facility] No Panel Informationon 01-17 Urine Occult Blood small [facility] Urine Urobilinogen 0.2EU/dL [facility] Urine Cultureon 01-17-2025 Bacteria identified Cx Nom (U) <9,000 colonies/ml mixed bacterial skin contaminants 2 Days PERFORMED BY: [facility] [address] [place] [address] PATHOLOGIST TUBE BENDER HAND DAVE APARICIO M.D. Normal [facility] Comment on above: Performed By: #### C UU #### [address] Urine cultureOrdered By: Susan Painter on 01-17-2025 Bacteria identified Cx Nom (U) Urine culture [facility] C Urineon 10-09-2024 Bacteria identified Cx Nom (U) Microbiology PROCEDURE: Urine Culture [R1] SOURCE: U CleanCatch BODY SITE: COLLECTED DATE/TIME: 10/07/2024 12:08 EST RECEIVED DATE/TIME: 10/07/2024 18:04 EST START DATE/TIME: 10/07/2024 18:04 EST FREE TEXT SOURCE: CHLOÉ PIZANO PA-C, PA-C, CHLOÉ Anne FINAL REPORTS Final Report [] Verified Date/Time: 10/09/2024 07:53 EST 2,000 cfu/ml Mixed skin contaminants Performing Locations R1: This test was performed at: [facility], [address] [place] [address], [phone]- , [place], Normal [facility] Comment on above: Performed By: #### [id number] #### [facility] [address] [place] [id number] C Urineon 09-22-2024 Bacteria identified Cx Nom (U) [...] Locations R1: This test was performed at: [facility], [address] [place] [address], [id number]- , [place], Normal [facility] Comment on above: Performed By: #### [id number] #### [facility] [address] [place] [address] Urology Office/Clinic Noteon 09-20-2024 Urology Office/Clinic Note [...] 3 weeks, then 3x per week thereafter, [facility], 170, cm, 09/20/24 11:31:00 EST, Height/Length Dosing, 68.8, kg, 09/20/24 11:31:00 EST, Weight Dosing sulfamethoxazole-trimetho prim, 1 tab(s), Oral, BID for 10 day(s), 20 tab(s), Refill(s) 0, [facility], 170, cm, 09/20/24 11:31:00 EST, Height/Length Dosing, 68.8, kg, 09/20/24 11:31:00 EST, Weight Dosing 70391 Measure Post Void residual urine and/or bladder capacity by US- non-imaging Body Mass Index (BMI) documented 3008F Current tobacco smoker 1034F Depression Screening Negative 3352F E&M of Est. Patient Moderate 30-39 Min 12977 Influenza immunization status assessed 1030F Medication list documented in medical record 1159F Most recent diastolic blood pressure <80 mm Hg 3078F Review of all meds by a prescribing practitioner or clinical pharmacist documented in EHR 1160F Systolic BP 130-139 mm Hg (Most Recent) 3075F Urine Culture Urnls Dip Stick Auto w/o Microscopy POC 22060 Follow-up With When Contact Information JERICA MOREIRA, CHLOÉ Anne, URL In 1 month [address] [place] [address] Additional Instructions: Patient Education Overactive [...] SARSCoV2 mRNA(tozinamer-tr (more content not included)... Normal [facility] Comment on above: Result Comment: Elec tronically Signed By: CHLOÉ PIZANO PA-C\.jodee\Date and Time Signed: 09/20/24 13:32 EST Occult blood x 1, stoolon Appearance (Stl) Adequate [facility] Internal identifier for Provider [id number] [facility] Lower GI hemoglobin IA Ql (Stl) SEE NOTE [facility] Comment on above: Not Detected Specimen source Nom (Unsp spec) STOOL [facility] STATUS FINAL [facility] FASTING: UNKNOWN [facility] Performing Organizat ion Information Site ID: QPT Name: [facility] Address: Ed Candelario , [address] [place] [id number] Director: Behzad Marley MD [facility] - Chemistry and C hemistry - challengeon 07-22-2024 Bilirubin Ql (U) small [facility] Glucose (U) [Mass/Vol] 100 mg/dL [facility] Ketones Ql (U) Negative [facility] pH (U) 5.5 [pH] [facility] Specific gravity (U) [Rel density] 1.030 [facility] Urobilinogen (U) [Mass/Vol] 0.2 mg/dL [facility] Laboratory - Specimen inform ationon 07-22-2024 Appearance (U) cloudy [facility] Color (U) yellow [facility] Laboratory - Urinalysison Leukocyte esterase Test strip Ql (U) Negative [facility] Nitrite Ql (U) Negative [facility] Protein Ql (U) 30 [facility] No Panel Informationon 07-22 Urine Occult Blood trace-intact [facility] Urine Cultureon 07-22-2024 Bacteria identified Cx Nom (U) 30,000 colonies/ml mixed bacterial skin contaminants 2 Days PERFORMED BY: [facility] [address] [place] [address] PATHOLOGIST TUBE BENDER HAND RICA HODGE M.D. Normal [facility] Comment on above: Performed By: #### C UU #### [facility] [address] Urine cultureOrdered By: Kaylee Saldana on 07-22-2024 Bacteria identified Cx Nom (U) Urine culture [facility] Laboratory - Chemistry and C [...] STAPHYLOCOCCUS EPIDERMIDIS, HAEMOLYTICUS, LUGDUNENSIS, SAPROPHYTICUS (URINA 0 [facility] STAPHYLOCOCCUS EPIDERMIDIS, HAEMOLYTICUS, LUGDUNENSIS, SAPROPHYTICUS (URINA Not detected [facility] STREPTOCOCCUS AGALACTIAE (GROUP B STREP) 25.738 Abnormal [facility] STREPTOCOCCUS AGALACTIAE (GROUP B STREP) Detected Abnormal [facility] STREPTOCOCCUS PYOGENES (GROUP A STREP) 0 [facility] STREPTOCOCCUS PYOGENES (GROUP A STREP) Not detected [facility] TET B, TET M 24.828 Abnormal [facility] TET B, TET M Detected Abnormal [facility] Laboratory - Chemistry and C hemistry - challengeon 06-03-2024 Bilirubin Ql (U) Negative [facility] Glucose [Mass/Vol] Negative [facility] Ketones Ql (U) Negative [facility] pH (U) 6.5 [pH] [facility] Specific gravity (U) [Rel density] 1.02 [facility] Urobilinogen (U) [Mass/Vol] 0.2 mg/dL [facility] Laboratory - Hematology and Cell countson 06-03-2024 Hemoglobin Ql (U) Negative [facility] Laboratory - Urinalysison Nitrite Ql (U) Negative [facility] Protein Ql (U) 100mg [facility] No Panel Informationon 06-03 Interpretation and review of laboratory results Abnormal [facility] LEUKOCYTES Negative [facility] XR ABDOMEN 2 VIEWon 01-15-20 24 XR [...] for Procedure/Surger yon 2023 Consent for Procedure/Surgery [id number]#1.00TIFF Normal [facility] Consent for Treatmenton Consent for Treatment [id number]#1.00TIFF Normal [facility] IntraOperative Documentson 0 2023 IntraOperative Documents [id number]#1.00TIFF Normal [facility] Main OR Intraoperative Recor don 2023 Main OR Intraoperative Record IntraOp Document Type FTURO Summary Primary Physician: Joe CARTAGENA MD Finalized Date/Time: 12/29/23 11:22:14 Pt. Name: ANN MARIE SEGURA Devan Bourne/Sex: 1960 Female Med Rec #: [id number] Physician: Joe CARTAGENA MD Financial #: [id number] Pt. 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 Condition Intact, [place], Warm, and Dry Additional None Specimens Collected [...] Orellana 12/29/23 11:22 Joleen Orellana 12/29/23 11:[address] [facility] Main OR Preoperative Recordo n 2023 Main OR Preoperative Record Holding Area Document Type FTURO Summary Primary Physician: Joe CARTAGENA MD Finalized Date/Time: 12/29/23 10:40:32 Pt. Name: COLTON ANN MARIE Hartman D.O.B./Sex: 1960 Female Med Rec #: [id number] Physician: Joe CARTAGENA MD Financial #: [id number] Pt. Type: O Room/Bed: / Admit/Disch: 12/29/23 [...] 10:36 Rajni Pratt RN 12/29/23 10:[address] [facility] Operative Reporton Operative Report Patient: BELEN SEGURA [...] urine. The Urethra was dilated to: 30 Tamazight w/ sounds. Devices Implanted: None. Removal: Cystoscope is removed, The patient tolerated it well. Postoperative Information Discharge: Patient is discharged home with antibiotic coverage, Follow up arranged. Normal [facility] Comment on above: Result Comment: Elec tronically Signed By: Joe CARTAGENA MD\.br\Date and Time Signed: 12/29/23 11:25 EDT Outpatient Surgery Discharge Instructionon 2023 Outpatient Surgery Discharge Instruction [id number]#1.00TIFF [facility] Pre-Certification Formon Pre-Certification Form [id number]#1.00TIFF [facility] Physician Referralon 024 Physician Referral [id number]#1.00TIFF Normal [facility] Screenson 11-26-2023 Screens [id number]#1.00TIFF Normal [facility] Patient Educationon 11-24-19 Patient Education Obstetrics and Gynec ology Overactive [...] health care provider. General instructions ? Take [id number] and prescription medicines only as told by [...] monitor yo (more content not included)... Normal [facility] Activated partial thrombopla stin time (aPTT) in platelet poor plasma by coagulation aOrdered By: Emily Grimes on 07-02-2023 aPTT Coag (PPP) [Time] 29.6 s 25.1-36.5 [facility] Comment on above: A hematocrit value g reater than 55% may lead to inaccurate results in coagulation testing. Patients having hematocrit values >55% require a special collection tube for coagulation studies. Please contact the laboratory at [phone] for redraw instructions. Automated erythrocytes count in urine sediment (number/area)Ordered By: Emily Grimes on 07-02-2023 RBC Auto (Urine sed) [#/Area] None seen [HPF] 0-4 [facility] Automated leukocytes count i n urine sediment (number/area)Ordered By: Emily Grimes on 07-02-2023 WBC Auto (Urine sed) [#/Area] 5-9 [HPF] 0-4 [facility] Automated urine hyaline cast s count (number/volume)Ordered By: Emily Grimes on 07-02-2023 Hyaline casts Auto (U) [#/Vol] 50-100 [LPF] 0-1 [facility] Automated urine sediment santhosh cium oxalate crystal count by microscopy (number/high powOrdered By: Emily Grimes on 07-02-2023 Calcium oxalate crystals LM.HPF (Urine sed) [#/Area] 2+ [HPF] [facility] Basophils Auto (Bld) [#/Vol] Ordered By: Emily Grimes on 07-02-2023 Basophils (Bld) [#/Vol] 0.1 10*3/uL 0.0-0.2 [facility] Basophils/100 WBC Auto (Bld) Ordered By: Emily Grimes on 11-09-2023 Basophils/100 WBC (Bld) 1.1 % . [facility] Bilirubin Test strip Ql (U)O rdered By: Emily Grimes on 07-02-2023 Bilirubin Ql (U) Negative Negative [facility] COVID CepheidOrdered By: Christine Grimes on 07-02-2023 SARS-CoV-2 (COVID-19) Ab IA Ql Negative Negative [facility] Comment on above: This is a duplicate [employer] Xpert Xpress CoV-2/Flu/RSV Plus RNA by RT-PCR result to be used for statistical tracking purpose only. SARS-CoV-2 (COVID-19) RNA MARY+probe Ql (Unsp spec) [facility] Calcium [Mass/volume] in Ser um or PlasmaOrdered By: Emily Grimes on 07-02-2023 Calcium [Mass/Vol] 10.2 mg/dL 8.6-10.3 [facility] Carbon dioxide, total [Moles /volume] in Serum or PlasmaOrdered By: Emily Grimes on 07-02-2023 CO2 [Moles/Vol] 20.1 mmol/L 21.0-31.0 [facility] Chloride [Moles/volume] in S marianela or PlasmaOrdered By: Emily Grimes on 07-02-2023 Chloride [Moles/Vol] 104 mmol/L 98-107 [facility] Color Auto (U)Ordered By: Aubrie Grimes on 07-02-2023 Color (U) Yellow Yellow [facility] Creatine kinase [Enzymatic a ctivity/volume] in Serum or PlasmaOrdered By: Emily Grimes on 07-02-2023 CK [Catalytic activity/Vol] 62 U/L 30-223 [facility] Creatinine [Mass/volume] in Serum or PlasmaOrdered By: Emily Grimes on 07-02-2023 Creatinine [Mass/Vol] 1.09 mg/dL 0.60-1.20 [facility] Eosinophils Auto (Bld) [#/Vo l]Ordered By: Emily Grimes on 07-02-2023 Eosinophils (Bld) [#/Vol] 0.0 10*3/uL 0.0-0.45 [facility] Eosinophils/100 WBC Auto (Bl d)Ordered By: Emilykelsi Grimes on 07-02-2023 Eosinophils/100 WBC (Bld) 0.4 % . [facility] Erythrocyte distribution wid th Auto (RBC) [Ratio]Ordered By: Emily Grimes on 07-02-2023 Erythrocyte distribution width (RBC) [Ratio] 14.4 % 11.9-15.3 [facility] Fine granular cast count in urine sediment by microscopy (number/low power field )Ordered By: Emily Grimes on 07-02-2023 Fine Granular Casts LM.LPF (Urine sed) [#/Area] 3-4 [LPF] 0-1 [facility] Glucose Glucometer (dC) [M ass/Vol]Ordered By: Emily Grimes on 07-02-2023 Glucose [Mass/Vol] 91 mg/dL [facility] Comment on above: Random Glucose Refer ence Range is dependent on time and content of last meal. Glucose of more than 200 mg/dL in a nonstressed, ambulatory subject supports the diagnosis of Diabetes Mellitus. Glucose [Mass/volume] in Ser um or PlasmaOrdered By: [facility] on 07-02-2023 Glucose [Mass/Vol] 109 mg/dL 70-100 [facility] Comment on above: ADA recommended refe rence rangeRandom Glucose Reference Range is dependent on time and content of last meal. Glucose of more than 200 mg/dL in a nonstressed, ambulatory subject supports the diagnosis of Diabetes Mellitus. Hematocrit Auto (Bld) [Volum e fraction]Ordered By: Emily Grimes on 07-02-2023 Hematocrit (Bld) [Volume fraction] 40.3 % 34.0-46.4 [facility] Hemoglobin [Mass/volume] in BloodOrdered By: Emily Grimes on 07-02-2023 Hemoglobin (Bld) [Mass/Vol] 13.1 g/dL 11.8-15.4 [facility] INR in Platelet poor plasma by Coagulation assayOrdered By: Emilykelsi Grimes on 07-02-2023 INR Coag (PPP) [Relative time] 1.0 {INR} [facility] Comment on above: INR Therapeutic [...] on 07-02-2023 Ketones (U) [Mass/Vol] Trace Negative [facility] Leukocytes [#/volume] correc andrae for nucleated erythrocytes in Blood by Automated counOrdered By: Emily Grimes on 07-02-2023 WBC corrected for nucl RBC Auto (Bld) [#/Vol] 12.9 10*3/uL 3.8-11.6 [facility] Lymphocytes Auto (Bld) [#/Vo l]Ordered By: Emily Grimes on 07-02-2023 Lymphocytes (Bld) [#/Vol] 1.8 10*3/uL 1.00-4.8 [facility] Lymphocytes/100 WBC Auto (Bl d)Ordered By: Emily Grimes on 07-02-2023 Lymphocytes/100 WBC (Bld) 13.7 % . [facility] MCH Auto (RBC) [Entitic mass ]Ordered By: Emily Grimes on 07-02-2023 MCH (RBC) [Entitic mass] 30.1 pg 24.7-34.3 [facility] MCHC Auto (RBC) [Mass/Vol]Or dered By: Emily Grimes on 07-02-2023 MCHC (RBC) [Mass/Vol] 32.6 g/dL 32.0-35.0 [facility] MCV Auto (RBC) [Entitic vol] Ordered By: Emily Grimes on 07-02-2023 MCV (RBC) [Entitic vol] 92.4 fL 80-100 [facility] Monocyte distribution width [Entitic volume] in Blood by AutomatedOrdered By: Emily Grimes on 07-02-2023 Monocyte distribution width Auto (Bld) [Entitic vol] 15.19 % 0.00-20.00 [facility] Monocytes Auto (Bld) [#/Vol] Ordered By: Emily Bullimore on 07-02-2023 Monocytes (Bld) [#/Vol] 0.8 10*3/uL 0.0-0.8 [facility] Monocytes/100 WBC Auto (Bld) Ordered By: Emily Perdomoimore on 07-02-2023 Monocytes/100 WBC (Bld) 6.4 % . [facility] Neutrophils Auto (Bld) [#/Vo l]Ordered By: Emily Bullimore on 07-02-2023 Neutrophils (Bld) [#/Vol] 10.1 10*3/uL 1.8-7.7 [facility] Neutrophils/100 WBC Auto (Bl d)Ordered By: Emily Perdomoimore on 07-02-2023 Neutrophils/100 WBC (Bld) 78.4 % . [facility] Nitrite Test strip Ql (U)Ord ered By: Emily Grimes on 07-02-2023 Nitrite Ql (U) Negative Negative [facility] No Panel InformationOrdered By: Emily Perdomoimadan on 07-02-2023 Estimated GFR (CKD-EPI) 57.084 mL/Min [facility] Creatinine Clearance (Chem 51.37 [facility] Nucleated erythrocytes [Pres ence] in Blood by Automated countOrdered By: Emily Grimes on 07-02-2023 Nucleated RBC Auto Ql (Bld) 0.1 /100{WBC} 0-0.5 [facility] Platelet mean volume Auto (B ld) [Entitic vol]Ordered By: Emily ePrdomoimore on 07-02-2023 Platelet mean volume (Bld) [Entitic vol] 7.8 fL 6.3-10.7 [facility] Platelets Auto (Bld) [#/Vol] Ordered By: Emily Perdomoimore on 07-02-2023 Platelets (Bld) [#/Vol] 370 10*3/uL 150-450 [facility] Potassium [Moles/volume] in Serum or PlasmaOrdered By: Emilykelsi Perdomoimore on 07-02-2023 Potassium [Moles/Vol] 3.9 mmol/L 3.5-5.1 [facility] Protein Auto test strip (U) [Mass/Vol]Ordered By: Emily Grimes on 07-02-2023 Protein (U) [Mass/Vol] 30 mg/dL Negative [facility] Prothrombin time (PT)Ordered By: Emily Grimes on 07-02-2023 PT Coag (PPP) [Time] 11.7 s 9.0-12.9 [facility] Comment on above: A hematocrit value g reater than 55% may lead to inaccurate results in coagulation testing. Patients having hematocrit values >55% require a special collection tube for coagulation studies. Please contact the laboratory at [phone] for redraw instructions. RBC Auto (Bld) [#/Vol]Ordere d By: Emily Grimes on 07-02-2023 RBC (Bld) [#/Vol] 4.36 10*6/uL 3.60-5.00 [facility] Serum or plasma anion gap de terminationOrdered By: Emily Grimes on 07-02-2023 Anion gap [Moles/Vol] 19.8 mmol/L 6.0-15.0 [facility] Sodium [Moles/volume] in Ser um or PlasmaOrdered By: Emily Grimes on 07-02-2023 Sodium [Moles/Vol] 140 mmol/L 136-145 [facility] Specific gravity Auto test s trip (U) [Rel density]Ordered By: Emily Grimes on 07-02-2023 Specific gravity (U) [Rel density] 1.025 1.001-1.03 0 [facility] Squamous epithelial cells de tection in urine sediment by light microscopyOrdered By: Emily Grimes on 07-02-2023 Epithelial cells.squamous LM Ql (Urine sed) 3-4 [HPF] 0-2 [facility] Thyrotropin [Units/volume] i n Serum or PlasmaOrdered By: Emily Grimes on 07-02-2023 TSH Qn 0.59 m[IU]/L 0.45-5.33 [facility] Thyroxine (T4) free [Mass/vo lume] in Serum or PlasmaOrdered By: Emily Grimes on 07-02-2023 Free T4 [Mass/Vol] 1.04 ng/dL 0.61-1.12 [facility] Troponin I.cardiac [Mass/vol ume] in Serum or Plasma by Detection limit <= 0.01 ng/Ordered By: Emily Grimes on 07-02-2023 Troponin I.cardiac DL <= 0.01 ng/mL [Mass/Vol] < 2.3 pg/mL 0.0-15.0 [facility] Urea nitrogen [Mass/volume] in Serum or PlasmaOrdered By: Emily Grimes on 07-02-2023 Urea nitrogen [Mass/Vol] 21 mg/dL 7-25 [facility] Urine bacteria detection by automated methodOrdered By: Emily Grimes on 07-02-2023 Bacteria Auto Ql (U) None seen None Seen [facility] Urine clarity by refractomet ry automatedOrdered By: Emily Grimes on 07-02-2023 Clarity Refractometry automated (U) Cloudy Clear [facility] Urine glucose measurement by automated test strip (mass/volume)Ordered By: Emily Grimes on 07-02-2023 Glucose Auto test strip (U) [Mass/Vol] 100 mg/dL Normal [facility] Urine hemoglobin detection b y automated test stripOrdered By: Emily Grimes on 07-02-2023 Hemoglobin Auto test strip Ql (U) Negative Negative [facility] Urine leukocyte esterase det ection by automated test stripOrdered By: Emily Grimes on 07-02-2023 Leukocyte esterase Auto test strip Ql (U) 2+ Negative [facility] Urine sediment crystal ident ification by light microscopyOrdered By: Emily Grimes on 07-02-2023 Crystals LM Nom (Urine sed) None seen [HPF] [facility] Urobilinogen Auto test strip (U) [Mass/Vol]Ordered By: Emily Grimes on 07-02-2023 Urobilinogen (U) [Mass/Vol] Normal mg/dL Normal [facility] WBC Auto (Bld) [#/Vol]Ordere d By: Emily Grimes on 07-02-2023 WBC (Bld) [#/Vol] 12.9 10*3/uL 3.8-11.6 [facility] pH Auto test strip (U)Ordere d By: Emily Grimes on 07-02-2023 pH (U) 5.5 [pH] 5.0-9.0 [facility] Urinalysis - AUTOMATEDon Appearance (U) cloudy [facility] Other Bilirubin Ql (U) Negative [employer] Other Color (U) yellow [employer] Other Glucose Ql (U) Negative [facility] Other Hemoglobin Ql (U) Negative [employer] Other Ketones Ql (U) Negative [facility] Other Leukocyte esterase Test strip Ql (U) trace [employer] Other Nitrite Ql (U) Negative [facility] Other pH (U) 5.5 [pH] [employer] Other Protein Ql (U) trace [facility] Other Specific gravity (U) [Rel density] >1.030 [employer] Other Urobilinogen (U) [Mass/Vol] 0.2 mg/dL [employer] Other Urinalysis - AUTOMATED No rt [employer] Other Urine culture routineOrdered By: Chloé Shea on 06-18-2023 Bacteria identified Cx Nom (U) 2 Days [facility] Tobacco Screening.on 023 Fall risk assessment c) Not medically indicated -[facility] [facility] [address] DO Work Phone: Tobacco use status CP b) No -[facility] [facility] [address] DO Work Phone: Tobacco Screening. Yes [facility] [facility] [address] DO Work Phone: Basophils Auto (Bld) [#/Vol] Ordered By: Olu Hull on 04-30-2023 Basophils (Bld) [#/Vol] 0.1 10*3/uL 0.0-0.2 [facility] Basophils/100 WBC Auto (Bld) Ordered By: Olu Hull on 04-30-2023 Basophils/100 WBC (Bld) 1.0 % . [facility] Calcium [Mass/volume] in Ser um or PlasmaOrdered By: Olu Hull on 04-30-2023 Calcium [Mass/Vol] 9.0 mg/dL 8.6-10.3 [facility] Carbon dioxide, total [Moles /volume] in Serum or PlasmaOrdered By: Olu Hull on 04-30-2023 CO2 [Moles/Vol] 24.8 mmol/L 21.0-31.0 [facility] Chloride [Moles/volume] in S marianela or PlasmaOrdered By: Olu Hull on 04-30-2023 Chloride [Moles/Vol] 108 mmol/L 98-107 [facility] Creatinine [Mass/volume] in Serum or PlasmaOrdered By: Olu Hull on 04-30-2023 Creatinine [Mass/Vol] 0.77 mg/dL 0.60-1.20 [facility] Eosinophils Auto (Bld) [#/Vo l]Ordered By: Olu Hull on 04-30-2023 Eosinophils (Bld) [#/Vol] 0.1 10*3/uL 0.0-0.45 [facility] Eosinophils/100 WBC Auto (Bl d)Ordered By: Olu Hull on 04-30-2023 Eosinophils/100 WBC (Bld) 1.3 % . [facility] Erythrocyte distribution wid th Auto (RBC) [Ratio]Ordered By: Olu Hull on 04-30-2023 Erythrocyte distribution width (RBC) [Ratio] 13.6 % 11.9-15.3 [facility] Glucose Glucometer (BldC) [M ass/Vol]Ordered By: Simone Martinez on 04-30-2023 Glucose [Mass/Vol] 124 mg/dL [facility] Comment on above: Random Glucose Refer ence Range is dependent on time and content of last meal. Glucose of more than 200 mg/dL in a nonstressed, ambulatory subject supports the diagnosis of Diabetes Mellitus. Glucose [Mass/volume] in Ser um or PlasmaOrdered By: Olu Hull on 04-30-2023 Glucose [Mass/Vol] 142 mg/dL 70-100 [facility] Comment on above: ADA recommended refe rence rangeRandom Glucose Reference Range is dependent on time and content of last meal. Glucose of more than 200 mg/dL in a nonstressed, ambulatory subject supports the diagnosis of Diabetes Mellitus. Hematocrit Auto (Bld) [Volum e fraction]Ordered By: Olu Hull on 04-30-2023 Hematocrit (Bld) [Volume fraction] 37.0 % 34.0-46.4 [facility] Hemoglobin [Mass/volume] in BloodOrdered By: Olu Hull on 04-30-2023 Hemoglobin (Bld) [Mass/Vol] 12.2 g/dL 11.8-15.4 [facility] Leukocytes [#/volume] correc andrae for nucleated erythrocytes in Blood by Automated counOrdered By: Olu Hull on 04-30-2023 WBC corrected for nucl RBC Auto (Bld) [#/Vol] 8.8 10*3/uL 3.8-11.6 [facility] Lymphocytes Auto (Bld) [#/Vo l]Ordered By: Olu Hull on 04-30-2023 Lymphocytes (Bld) [#/Vol] 1.5 10*3/uL 1.00-4.8 [facility] Lymphocytes/100 WBC Auto (Bl d)Ordered By: Olu Hull on 04-30-2023 Lymphocytes/100 WBC (Bld) 17.6 % . [facility] MCH Auto (RBC) [Entitic mass ]Ordered By: Olu Hull on 04-30-2023 MCH (RBC) [Entitic mass] 30.2 pg 24.7-34.3 [facility] MCHC Auto (RBC) [Mass/Vol]Or dered By: Olu Hull on 09-07-2023 MCHC (RBC) [Mass/Vol] 33.1 g/dL 32.0-35.0 [facility] MCV Auto (RBC) [Entitic vol] Ordered By: Olu Hull on 04-30-2023 MCV (RBC) [Entitic vol] 91.4 fL 80-100 [facility] Monocytes Auto (Bld) [#/Vol] Ordered By: Olu Hull on 04-30-2023 Monocytes (Bld) [#/Vol] 0.8 10*3/uL 0.0-0.8 [facility] Monocytes/100 WBC Auto (Bld) Ordered By: Olu Hull on 04-30-2023 Monocytes/100 WBC (Bld) 9.4 % . [facility] Neutrophils Auto (Bld) [#/Vo l]Ordered By: Olu Hull on 04-30-2023 Neutrophils (Bld) [#/Vol] 6.2 10*3/uL 1.8-7.7 [facility] Neutrophils/100 WBC Auto (Bl d)Ordered By: Olu Hull on 04-30-2023 Neutrophils/100 WBC (Bld) 70.7 % . [facility] No Panel InformationOrdered By: Simoen Martinez on 04-30-2023 Bedside Glucose Comment Glu2: cleaned meter [facility] No Panel InformationOrdered By: Olu Hull on 04-30-2023 Estimated GFR (CKD-EPI) > 60.0 mL/Min [facility]acy Creatinine Clearance (Chem 72.72 [facility] Nucleated erythrocytes [Pres ence] in Blood by Automated countOrdered By: Olu Hull on 04-30-2023 Nucleated RBC Auto Ql (Bld) 0.1 /100{WBC} 0-0.5 [facility] Platelet mean volume Auto (B ld) [Entitic vol]Ordered By: Olu Hull on 04-30-2023 Platelet mean volume (Bld) [Entitic vol] 8.5 fL 6.3-10.7 [facility] Platelets Auto (Bld) [#/Vol] Ordered By: Olu Hull on 04-30-2023 Platelets (Bld) [#/Vol] 230 10*3/uL 150-450 [facility] Potassium [Moles/volume] in Serum or PlasmaOrdered By: Olu Hull on 04-30-2023 Potassium [Moles/Vol] 4.2 mmol/L 3.5-5.1 [facility] RBC Auto (Bld) [#/Vol]Ordere d By: Olu Hull on 04-30-2023 RBC (Bld) [#/Vol] 4.04 10*6/uL 3.60-5.00 [facility] Serum or plasma anion gap de terminationOrdered By: Olu Hull on 04-30-2023 Anion gap [Moles/Vol] 11.4 mmol/L 6.0-15.0 [facility] Sodium [Moles/volume] in Ser um or PlasmaOrdered By: Olu Hull on 04-30-2023 Sodium [Moles/Vol] 140 mmol/L 136-145 [facility] Troponin I.cardiac [Mass/vol ume] in Serum or Plasma by Detection limit <= 0.01 ng/Ordered By: Annabel Acharya on 04-30-2023 Troponin I.cardiac DL <= 0.01 ng/mL [Mass/Vol] 42.2 pg/mL 0.0-15.0 [facility] Urea nitrogen [Mass/volume] in Serum or PlasmaOrdered By: Olu Hull on 04-30-2023 Urea nitrogen [Mass/Vol] 14 mg/dL 7-25 [facility] WBC Auto (Bld) [#/Vol]Ordere d By: Olu Hull on 04-30-2023 WBC (Bld) [#/Vol] 8.8 10*3/uL 3.8-11.6 [facility] Activated partial thrombopla stin time (aPTT) in platelet poor plasma by coagulation aOrdered By: Olu Hull on 04-29-2023 aPTT Coag (PPP) [Time] 44.2 s 25.1-36.5 [facility] Comment on above: A hematocrit value g reater than 55% may lead to inaccurate results in coagulation testing. Patients having hematocrit values >55% require a special collection tube for coagulation studies. Please contact the laboratory at [phone] for redraw instructions. Cholesterol [Mass/volume] in Serum or PlasmaOrdered By: Olu Hull on 04-29-2023 Cholesterol [Mass/Vol] 138 mg/dL 140-200 [facility] Comment on above: Chol less than 200 m g/dl low riskChol 201-239 mg/dl borderline riskChol 240 mg/dl and greater high risk Cholesterol in LDL Calc [Mas s/Vol]Ordered By: Olu Hull on 04-29-2023 Cholesterol in LDL [Mass/Vol] 71 mg/dL 0-100 [facility] Comment on above: LDL ATP III CLASSIFI CATIONLDL less than 100 mg/dL OptimalLDL 100-129 mg/dL Near or above optimalLDL 130-159 mg/dL Borderline highLDL 160-189 mg/dL HighLDL greater than 189 mg/dL Very high Cholesterol in VLDL Calc [Ma ss/Vol]Ordered By: Olu Hull on 04-29-2023 Cholesterol in VLDL [Mass/Vol] 14 mg/dL [facility] Glucose mean value [Mass/vol ume] in Blood Estimated from glycated hemoglobinOrdered By: Olu Hull on 04-29-2023 Average glucose Estimated from glycated hemoglobin (Bld) [Mass/Vol] 209 mg/dL [facility] Hemoglobin A1c percentageOrd ered By: Olu Hull on 04-29-2023 HbA1c (Bld) [Mass fraction] 8.9 % 4.3-5.6 [facility] Comment on above: Increased risk for d iabetes: 5.7 - 6.4diabetes: >6.4glycemic control for adults with diabetes: <7.0 INR in Platelet poor plasma by Coagulation assayOrdered By: Olu Hull on 04-29-2023 INR Coag (PPP) [Relative time] 1.0 {INR} [facility] Comment on above: INR Therapeutic [...] PT Coag (PPP) [Time] 12.0 s 9.0-12.9 [facility] Serum or plasma high density lipoprotein (HDL) cholesterol measurementOrdered By: Olu Hull on 04-29-2023 Cholesterol in HDL [Mass/Vol] 53 mg/dL 23-92 [facility] Comment on above: HDL CHOL ATP-III CLA SSIFICATION Cardiovascular RiskHDL > or equal to 60 mg/dL LOWHDL < 40 mg/dL HIGH Serum or plasma total choles terol/high density lipoprotein (HDL) cholesterol mass ratOrdered By: Olu Hull on 04-29-2023 Cholesterol.total/Chol esterol in HDL [Mass ratio] 2.6 {ratio} <5.0 [facility] Triglyceride [Mass/volume] i n Serum or PlasmaOrdered By: Olu Hull on 04-29-2023 Triglyceride [Mass/Vol] 71 mg/dL 0-149 [facility] Comment on above: TRIG ATP [...] aPTT Coag (PPP) [Time] 20.8 s 25.1-36.5 [facility] Automated erythrocytes count in urine sediment (number/area)Ordered By: Joe Meneses on 04-28-2023 RBC Auto (Urine sed) [#/Area] 5-9 [HPF] 0-4 [facility] Automated leukocytes count i n urine sediment (number/area)Ordered By: Joe Meneses on 04-28-2023 WBC Auto (Urine sed) [#/Area] 20-49 [HPF] 0-4 [facility] Automated urine hyaline cast s count (number/volume)Ordered By: Joe Meneses on 04-28-2023 Hyaline casts Auto (U) [#/Vol] 20-49 [LPF] 0-1 [facility] Basophils Auto (Bld) [#/Vol] Ordered By: Joe Meneses on 04-28-2023 Basophils (Bld) [#/Vol] 0.2 10*3/uL 0.0-0.2 [facility] Basophils/100 WBC Auto (Bld) Ordered By: Joe Meneses on 04-28-2023 Basophils/100 WBC (Bld) 1.5 % . [facility] Bilirubin Test strip Ql (U)O rdered By: Joe Mneeses on 04-28-2023 Bilirubin Ql (U) Negative Negative [facility] Calcium [Mass/volume] in Ser um or PlasmaOrdered By: Joe Meneses on 04-28-2023 Calcium [Mass/Vol] 8.7 mg/dL 8.6-10.3 [facility] Carbon dioxide, total [Moles /volume] in Serum or PlasmaOrdered By: Joe Meneses on 04-28-2023 CO2 [Moles/Vol] 20.8 mmol/L 21.0-31.0 [facility] Chloride [Moles/volume] in S marianela or PlasmaOrdered By: Joe Meneses on 04-28-2023 Chloride [Moles/Vol] 113 mmol/L 98-107 [facility] Color Auto (U)Ordered By: Misbah Meneses on 04-28-2023 Color (U) Yellow Yellow [facility] Creatine kinase [Enzymatic a ctivity/volume] in Serum or PlasmaOrdered By: Joe Meneses on 04-28-2023 CK [Catalytic activity/Vol] 30 U/L 30-223 [facility] Creatinine [Mass/volume] in Serum or PlasmaOrdered By: Joe Meneses on 04-28-2023 Creatinine [Mass/Vol] 0.93 mg/dL 0.60-1.20 [facility] Eosinophils Auto (Bld) [#/Vo l]Ordered By: Joe Meneses on 04-28-2023 Eosinophils (Bld) [#/Vol] 0.1 10*3/uL 0.0-0.45 [facility] Eosinophils/100 WBC Auto (Bl d)Ordered By: Joe Meneses on 04-28-2023 Eosinophils/100 WBC (Bld) 0.5 % . [facility] Erythrocyte distribution wid th Auto (RBC) [Ratio]Ordered By: Joe Meneses on 04-28-2023 Erythrocyte distribution width (RBC) [Ratio] 13.8 % 11.9-15.3 [facility] Glucose [Mass/volume] in Ser um or PlasmaOrdered By: Joe Meneses on 04-28-2023 Glucose [Mass/Vol] 166 mg/dL 70-100 [facility] Comment on above: ADA recommended refe rence rangeRandom Glucose Reference Range is dependent on time and content of last meal. Glucose of more than 200 mg/dL in a nonstressed, ambulatory subject supports the diagnosis of Diabetes Mellitus. Hematocrit Auto (Bld) [Volum e fraction]Ordered By: Joe Meneses on 04-28-2023 Hematocrit (Bld) [Volume fraction] 36.7 % 34.0-46.4 [facility] Hemoglobin [Mass/volume] in BloodOrdered By: Joe Meneses on 04-28-2023 Hemoglobin (Bld) [Mass/Vol] 11.9 g/dL 11.8-15.4 [facility] INR in Platelet poor plasma by Coagulation assayOrdered By: Joe Meneses on 04-28-2023 INR Coag (PPP) [Relative time] 1.0 {INR} [facility] Comment on above: INR Therapeutic [...] on 04-28-2023 Ketones (U) [Mass/Vol] 1+ Negative [facility] - CoagulationOrde red By: Joe Meneses on 04-28-2023 PT Coag (PPP) [Time] 11.4 s 9.0-12.9 [facility] Leukocytes [#/volume] correc andrae for nucleated erythrocytes in Blood by Automated counOrdered By: Joe Meneses on 04-28-2023 WBC corrected for nucl RBC Auto (Bld) [#/Vol] 11.5 10*3/uL 3.8-11.6 [facility] Lymphocytes Auto (Bld) [#/Vo l]Ordered By: Joe Meneses on 04-28-2023 Lymphocytes (Bld) [#/Vol] 1.4 10*3/uL 1.00-4.8 [facility] Lymphocytes/100 WBC Auto (Bl d)Ordered By: Joe Meneses on 04-28-2023 Lymphocytes/100 WBC (Bld) 12.1 % . [facility] MCH Auto (RBC) [Entitic mass ]Ordered By: Joe Meneses on 04-28-2023 MCH (RBC) [Entitic mass] 29.7 pg 24.7-34.3 [facility] MCHC Auto (RBC) [Mass/Vol]Or dered By: Joe Meneses on 04-28-2023 MCHC (RBC) [Mass/Vol] 32.4 g/dL 32.0-35.0 [facility] MCV Auto (RBC) [Entitic vol] Ordered By: Joe Meneses on 04-28-2023 MCV (RBC) [Entitic vol] 91.8 fL 80-100 [facility] Monocyte distribution width [Entitic volume] in Blood by AutomatedOrdered By: Joe Meneses on 04-28-2023 Monocyte distribution width Auto (Bld) [Entitic vol] 19.54 % 0.00-20.00 [facility] Monocytes Auto (Bld) [#/Vol] Ordered By: Joe Meneses on 04-28-2023 Monocytes (Bld) [#/Vol] 0.8 10*3/uL 0.0-0.8 [facility] Monocytes/100 WBC Auto (Bld) Ordered By: Joe Meneses on 04-28-2023 Monocytes/100 WBC (Bld) 7.4 % . [facility] Natriuretic peptide B [Mass/ Vol]Ordered By: Joe Meneses on 04-28-2023 Natriuretic peptide B (Bld) [Mass/Vol] 140.0 pg/mL 5-100 [facility] Neutrophils Auto (Bld) [#/Vo l]Ordered By: Joe Meneses on 04-28-2023 Neutrophils (Bld) [#/Vol] 9.0 10*3/uL 1.8-7.7 [facility] Neutrophils/100 WBC Auto (Bl d)Ordered By: Joe Meneses on 04-28-2023 Neutrophils/100 WBC (Bld) 78.5 % . [facility] Nitrite Test strip Ql (U)Ord ered By: Joe Meneses on 04-28-2023 Nitrite Ql (U) Negative Negative [facility] No Panel InformationOrdered By: Joe Meneses on 04-28-2023 Estimated GFR (CKD-EPI) > 60.0 mL/Min [facility] Creatinine Clearance (Chem 60.21 [facility] Nucleated erythrocytes [Pres ence] in Blood by Automated countOrdered By: Joe Meneses on 04-28-2023 Nucleated RBC Auto Ql (Bld) 0.0 /100{WBC} 0-0.5 [facility] Platelet mean volume Auto (B ld) [Entitic vol]Ordered By: Joe Meneses on 04-28-2023 Platelet mean volume (Bld) [Entitic vol] 8.5 fL 6.3-10.7 [facility] Platelets Auto (Bld) [#/Vol] Ordered By: Joe Meneses on 04-28-2023 Platelets (Bld) [#/Vol] 241 10*3/uL 150-450 [facility] Potassium [Moles/volume] in Serum or PlasmaOrdered By: Joe Meneses on 04-28-2023 Potassium [Moles/Vol] 4.1 mmol/L 3.5-5.1 [facility] Protein Auto test strip (U) [Mass/Vol]Ordered By: Joe Meneses on 04-28-2023 Protein (U) [Mass/Vol] 100 mg/dL Negative [facility] RBC Auto (Bld) [#/Vol]Ordere d By: Joe Meneses on 04-28-2023 RBC (Bld) [#/Vol] 4.00 10*6/uL 3.60-5.00 [facility] Serum or plasma anion gap de terminationOrdered By: Joe Meneses on 04-28-2023 Anion gap [Moles/Vol] 10.3 mmol/L 6.0-15.0 [facility] Sodium [Moles/volume] in Ser um or PlasmaOrdered By: Joe Meneses on 04-28-2023 Sodium [Moles/Vol] 140 mmol/L 136-145 [facility] Specific gravity Auto test s trip (U) [Rel density]Ordered By: Joe Meneses on 04-28-2023 Specific gravity (U) [Rel density] 1.023 1.001-1.03 0 [facility] Squamous epithelial cells de tection in urine sediment by light microscopyOrdered By: Joe Meneses on 04-28-2023 Epithelial cells.squamous LM Ql (Urine sed) 10-19 [HPF] 0-2 [facility] Troponin I.cardiac [Mass/vol ume] in Serum or Plasma by Detection limit <= 0.01 ng/Ordered By: Joe Meneses on 04-28-2023 Troponin I.cardiac DL <= 0.01 ng/mL [Mass/Vol] 3.8 pg/mL 0.0-15.0 [facility] Urea nitrogen [Mass/volume] in Serum or PlasmaOrdered By: Joe Meneses on 04-28-2023 Urea nitrogen [Mass/Vol] 21 mg/dL 7-25 [facility] Urine bacteria detection by automated methodOrdered By: Joe Meneses on 04-28-2023 Bacteria Auto Ql (U) None seen None Seen [facility] Urine clarity by refractomet ry automatedOrdered By: Joe Meneses on 04-28-2023 Clarity Refractometry automated (U) Cloudy Clear [facility] Urine culture routineOrdered By: Joe Meneses on 04-28-2023 Bacteria identified Cx Nom (U) [facility] Bacteria identified Cx Nom (U) [facility] Urine glucose measurement by automated test strip (mass/volume)Ordered By: Joe Meneses on 04-28-2023 Glucose Auto test strip (U) [Mass/Vol] 250 mg/dL Normal [facility] Urine hemoglobin detection b y automated test stripOrdered By: Joe Meneses on 04-28-2023 Hemoglobin Auto test strip Ql (U) Negative Negative [facility] Urine leukocyte esterase det ection by automated test stripOrdered By: Joe Meneses on 04-28-2023 Leukocyte esterase Auto test strip Ql (U) 2+ Negative [facility] Urine sediment renal epithel ial cell count by microscopy (number/high power field)Ordered By: Joe Meneses on 04-28-2023 Epithelial cells.renal LM.HPF (Urine sed) [#/Area] N/A [facility] Urobilinogen Auto test strip (U) [Mass/Vol]Ordered By: Joe Meneses on 04-28-2023 Urobilinogen (U) [Mass/Vol] Normal mg/dL Normal [facility] WBC Auto (Bld) [#/Vol]Ordere d By: Joe Meneses on 04-28-2023 WBC (Bld) [#/Vol] 11.5 10*3/uL 3.8-11.6 [facility] pH Auto test strip (U)Ordere d By: Joe Meneses on 04-28-2023 pH (U) 6.0 [pH] 5.0-9.0 [facility] CNPNon 04-21-2023 CNPN Telephone (CARDAV) ----- BRENDA SEGURA ([id number]) 1960 F Date Time Provider Department 04/21/23 JOSE EDUARDO CHU During your visit today, we recorded the following information about you: Francie Buenrostro MA 04/21/2023 9:56 AM Signed Received referral to Cardiology for PSVT and records from [facility]. Sent to scheduling and also sent records of scanning. Gretta Gordon 04/30/2023 2:01 PM Signed Pt's insurance is [id number]; created OON referral which requires financial clearance prior to scheduling. Gretta Gordon 05/04/2023 2:12 PM Signed Pt's referral was authorized for scheduling. Called pt to make an appt in Cardiology. Pt is already scheduled with a flight nurse in [place] and declined to schedule. Allergies As of [...] Status:Closed by GRETTA GORDON on 04/30/23 Normal [facility] Urinalysis - AUTOMATEDon Appearance (U) clear [facility] Other Bilirubin Ql (U) Negative [employer] Other Color (U) dark yellow [employer] Other Glucose Ql (U) 250 [facility] Other Hemoglobin Ql (U) moderate [employer] Other Ketones Ql (U) 15 [facility] Other Leukocyte esterase Test strip Ql (U) Negative [employer] Other Nitrite Ql (U) Negative [facility] Other pH (U) 6.5 [pH] [employer] Other Protein Ql (U) 30 [facility] Other Specific gravity (U) [Rel density] 1.025 [place] [facility] Other Urobilinogen (U) [Mass/Vol] 0.2 mg/dL [place] Other Urinalysis - AUTOMATED No rth [employer] Other Urine culture routineOrdered By: Kathya Chang on 03-06-2023 Bacteria identified Cx Nom (U) 2 Days [facility] XR Wrist Complete Right*on 0 [...] by Art Alston on 01/05/2023 1039 Normal [facility] Category Analyst Podiatry Office/Clinic Noteo n 10-09-2022 Podiatry Office/Clinic [...] compared to the right as measured with Acosta Mariangel monofilament. Gross motor intact bilateral. Negative [...] mellitus an (more content not included)... Normal [facility] Podiatry Office/Clinic Noteo n 09-11-2022 Podiatry Office/Clinic [...] She was being seen at the reconstruction [place] in [facility] by Shira Quick Physician administrative sales assistant. She was referred here for evaluation [...] compared to the right as measured with Acosta Mariangel monofilament. Gross motor intact bilateral. Negative [...] of t (more content not included)... Normal [facility] US Lower Extr. Non-Vasc. Chris Montague 09-11-2022 US Lower Extr. Non-Vasc. Limited Left EXAM: Limited Diagnostic Musculoskeletal Ultrasound [with Ultrasound-Guided Injection of left common peroneal nerve at the fibular head] CLINICAL HISTORY: Patient with history of neuritic type pain and has history of left ankle surgery. Concern for potential common peroneal nerve entrapment, superficial peroneal nerve entrapment, sural nerve entrapment on the left TECHNIQUE: Musculoskeletal Ultrasound with [employer] unit with [12 MHz][C1-5] transducer FINDINGS: [...] Electronically Signed in Other Vendor System) Normal [facility] [facility] XR Tibia/Fibula Lefton 09-11 XR Tibia/Fibula [...] Tommy Reis DPM Signed (Electronic Signature): 09/11/2022 11:14 am Transcribed DT/TM: 09/11/2022 11:14 (If Report Is Signed, Electronically Signed in Other Vendor System) Normal [place] [employer] [facility] Urinalysis - DIPSTICKon 08-24 Appearance (U) cloudy [facility] Other Bilirubin Ql (U) Negative [employer] Other Color (U) yellow [employer] Other Glucose Ql (U) Negative [facility] Other Hemoglobin Ql (U) Small [facility] [employer] Other Ketones Ql (U) Negative [facility] Other Leukocyte esterase Test strip Ql (U) Negative [employer] Other Nitrite Ql (U) Negative [facility] Other pH (U) 7.0 [pH] [employer] Other Protein Ql (U) 100 [facility] Other Specific gravity (U) [Rel density] >=1.030 [employer] Other Urobilinogen (U) [Mass/Vol] 0.2 mg/dL [employer] Other Urinalysis - DIPSTICK Nor [employer] Other Urine Cultureon 09-07-2022 Urine Culture >100,000 [employer] Other Podiatry Office/Clinic Noteo n 07-29-2022 Podiatry [...] She was being seen at the reconstruction [place] in [facility] by Shira Quick Physician administrative sales assistant. She was referred here for evaluation [...] compared to the right as measured with Acosta Mariangel monofilament. Gross motor intact bilateral. Negative [...] guidance. Dis (more content not included)... Normal [facility] Provider Letteron 07-29-2022 Provider Letter (Inserted Image. Rama ble to display) Rajni Quick PA-C [address] [place] [address], [place] [address] Re: Brenda Colton Date of Visit: 07/29/2022 Dear Rajni Quick PA-C, [facility] [address] [place] [address], [phone] Fax: [phone] Date: 07/29/2022 18:09:14 Dear Abdelrahman MOREIRA, Rajni Valiente Thank you for referring Brenda Segura who was seen on 07/22/2022 10:30:00. Please see attached note for further details and please call with any questions or concerns. _ Thank you, Tommy Reis DPM Let me know if you have any questions or concerns. Sincerely, VISHNU Pino Providers: Bonita Santos The following document(s) were included in the letter: July 29, 2022 17:55:29 EST - (07/29/2022) Office Visit Note Normal [facility] XR Ankle 3 Views Lefton 12-0 XR [...] by: Tommy Resi DPM Signed (Electronic Signature): 07/29/2022 11:44 am Transcribed DT/TM: 07/29/2022 11:44 (If Report Is Signed, Electronically Signed in Other Vendor System) Normal [facility] XR Foot 3 Views Lefton 07-29 XR [...] Electronically Signed in Other Vendor System) Normal [facility] Urinalysis - AUTOMATEDon Appearance (U) cloudy [facility] Other Bilirubin Ql (U) Negative [employer] Other Color (U) yellow [employer] Other Glucose Ql (U) 500 [facility] Other Hemoglobin Ql (U) small [employer] Other Ketones Ql (U) Negative [facility] Other Leukocyte esterase Test strip Ql (U) small [employer] Other Nitrite Ql (U) Negative [facility] Other pH (U) 5.5 [pH] [employer] Other Protein Ql (U) 100 [facility] Other Specific gravity (U) [Rel density] >=1.030 [employer] Other Urobilinogen (U) [Mass/Vol] 0.2 mg/dL [employer] Other Urinalysis - AUTOMATED No rt [employer] Other CBC AUTO DIFFon 02-05-2022 BASO # 0.0 103/ul Normal 0.0-0.1 [facility] Comment on above: Performed By: #### C BC #### [facility] [address] [place] [address] Dr. Mercy Mcgovern Basophils/100 WBC (Bld) 0.2 % Normal 0.2-2.0 [facility] Comment on above: Performed By: #### C BC #### [facility] [address] [place] [address] Dr. Mercy Mcgovern EO # 0.1 103/ul Normal 0.0-0.7 [facility] Comment on above: Performed By: #### C BC #### [facility] [address] [place] [address] Dr. Mercy Mcgovern Eosinophils/100 WBC (Bld) 0.5 % Critically low 0.9-7.0 [facility] Comment on above: Performed By: #### C BC #### [facility] [address] [place] [address] Dr. Mercy Mcgovern Erythrocyte distribution width (RBC) [Ratio] 13.2 % Normal 11.0-15.0 [facility] Comment on above: Performed By: #### C BC #### [facility] [address] [place] [place] [address] Dr. Mercy Mcgovern Hematocrit (Bld) [Volume fraction] 32.8 % Critically low 36.0-48.0 [facility] Comment on above: Performed By: #### C BC #### [facility] [address] [place] [address] Dr. Mercy Mcgovern Hemoglobin (Bld) [Mass/Vol] 10.6 g/dL Critically low 12.0-16.0 [facility] Comment on above: Performed By: #### C BC #### [facility] [address] [place] [address] Dr. Mercy Mcgovern IG # 0.05 10e3/ul Critically high 0.00-0.03 [facility] Comment on above: Performed By: #### C BC #### [facility] [address] [place] [address] Dr. Mercy Mcgovern IG % 0.4 % Normal 0.0-0.5 [facility] Comment on above: Performed By: #### C BC #### [facility] [address] [place] [address] Dr. Mercy Mcgovern LYMPH # 1.8 103/ul Normal 1.2-3.8 [facility] Comment on above: Performed By: #### C BC #### [facility] [address] [place] [address] Dr. Mercy Mcgovern Lymphocytes/100 WBC (Bld) 15.1 % Critically low 20.5-60.0 [facility] Comment on above: Performed By: #### C BC #### [facility] [address] [place] [address] Dr. Mercy Mcgovern MANUAL DIFF REQ NO Normal [facility] Comment on above: Performed By: #### C BC #### [facility] [address] [place] [address] Dr. Mercy Mcgovern MCH (RBC) [Entitic mass] 30.0 pg Normal 26.7-34.0 [facility] Comment on above: Performed By: #### C BC #### [facility] [address] [place] [address] Dr. Mercy Mcgovern MCHC (RBC) [Mass/Vol] 32.3 g/dL Normal 29.9-35.2 [facility] Comment on above: Performed By: #### C BC #### [facility] [address] [place] [address] Dr. Mercy Mcgovern MCV (RBC) [Entitic vol] 92.9 fL Normal 81.0-99.0 [facility] Comment on above: Performed By: #### C BC #### [facility] [address] [place] [address] Dr. Mercy Mcgovern MONO # 0.8 103/ul Normal 0.3-0.8 [facility] Comment on above: Performed By: #### C BC #### [facility] [address] [place] [address] Dr. Mercy Mcgovern Monocytes/100 WBC (Bld) 6.9 % Normal 1.7-12.0 [facility] Comment on above: Performed By: #### C BC #### [facility] [address] [place] [address] Dr. Mercy Mcgovern NEUT # 9.2 103/ul Critically high 1.4-6.5 [facility] Comment on above: Performed By: #### C BC #### [facility] [address] [place] [address] Dr. Mercy Mcgovern Neutrophils/100 WBC (Bld) 76.9 % Critically high 43.0-75.0 [facility] Comment on above: Performed By: #### C BC #### [facility] [address] [place] [address] Dr. Mercy Mcgovern Platelet mean volume (Bld) [Entitic vol] 9.7 fL Normal 9.5-13.5 [facility] Comment on above: Performed By: #### C BC #### [facility] [address] [place] [address] Dr. Mercy Mcgovern PLT 162 103/ul Normal 150-450 [facility] Comment on above: Performed By: #### C BC #### [facility] [address] [place] [address] Dr. Mercy Mcgovern RBC 3.53 106/ul Critically low 4.20-5.40 [facility] Comment on above: Performed By: #### C BC #### [facility] [address] [place] [address] Dr. Mercy Mcgovern WBC 12.0 103/ul Critically high 4.0-11.0 [facility] Comment on above: Performed By: #### C BC #### [facility] [address] [place] [address] Dr. Mercy Mcgovern PROF 14(COMP METB)on 022 Albumin [Mass/Vol] 2.5 g/dL Critically low 3.4-5.0 [facility] Comment on above: Performed By: #### O BSCRN #### [facility] [address] [place] [address] Dr. Mercy Mcgovern Albumin/Globulin [Mass ratio] 0.9 {ratio} Normal [facility] Comment on above: Performed By: #### O BSCRN #### [facility] [address] [place] [address] Dr. Mercy Mcgovern ALP [Catalytic activity/Vol] 69 U/L Normal 46-116 [facility] Comment on above: Performed By: #### O BSCRN #### [facility] [address] [place] [address] Dr. Mercy Mcgovern ALT [Catalytic activity/Vol] 21 U/L Normal 14-59 [facility] Comment on above: Performed By: #### O BSCRN #### [facility] [address] [place] [address] Dr. Mercy Mcgovern Anion gap [Moles/Vol] 13.8 mmol/L Normal [facility] Comment on above: Performed By: #### O BSCRN #### [facility] [address] [place] [address] Dr. Mercy Mcgovern AST [Catalytic activity/Vol] 12 U/L Critically low 15-37 [facility] Comment on above: Performed By: #### O BSCRN #### [facility] [address] [address] [address] Mercy Mcgovern Bilirubin [Mass/Vol] 0.2 mg/dL Normal 0.2-1.0 [facility] Comment on above: Performed By: #### O BSCRN #### [facility] [address] [place] [address] Dr. Mercy Mcgovern Calcium [Mass/Vol] 8.1 mg/dL Critically low 8.5-10.[address] [facility] Comment on above: Performed By: #### O BSCRN #### [facility] [address] [place] [address] Dr. Mercy Mcgovern Chloride [Moles/Vol] 114 mmol/L Critically high 98-107 [facility] Comment on above: Performed By: #### O BSCRN #### [facility] [address] [place] [address] Dr. Mercy Mcgovern CO2 [Moles/Vol] 20.1 mmol/L Critically low 21.0-32.0 [facility] Comment on above: Performed By: #### O BSCRN #### [facility] [address] [place] [address] Dr. Mercy Mcgovern Creatinine [Mass/Vol] 0.59 mg/dL Normal 0.55-1.02 [facility] Comment on above: Performed By: #### O BSCRN #### [facility] [address] [place] [address] Dr. Mercy Mcgovern EGFR-AF MONTENEGRIN >60 Normal >=60 [facility] Comment on above: Performed By: #### O BSCRN #### [facility] [address] [place] [address] Dr. Mercy Mcgovern EGFR-NON AF MONTENEGRIN >60 Normal >=60 [facility] Comment on above: Performed By: #### O BSCRN #### [facility] [address] [place] [address] Dr. Mercy Mcgovern Globulin (S) [Mass/Vol] 2.9 g/dL Normal [facility] Comment on above: Performed By: #### O BSCRN #### [facility] [address] [place] [address] Dr. Mercy Mcgovern Glucose [Mass/Vol] 143 mg/dL Critically high 74-106 [facility] Comment on above: Performed By: #### O BSCRN #### [facility] [address] [place] [address] Dr. Mercy Mcgovern Potassium [Moles/Vol] 3.9 mmol/L Normal 3.5-5.1 [facility] Comment on above: Performed By: #### O BSCRN #### [facility] [address] [place] [address] Dr. Mercy Mcgovern Protein [Mass/Vol] 5.4 g/dL Critically low 6.4-8.[address] [facility] Comment on above: Performed By: #### O BSCRN #### [facility] [address] [place] [address] Dr. Mercy Mcgovern Sodium [Moles/Vol] 144 mmol/L Normal 136-145 [facility] Comment on above: Performed By: #### O BSCRN #### [facility] [address] [place] [address] Dr. Mercy Mcgovern Urea nitrogen [Mass/Vol] 9.0 mg/dL Normal 7.0-18.0 [facility] Comment on above: Performed By: #### O BSCRN #### [facility] [address] [place] [address] Dr. Mercy Mcgovern Urea nitrogen/Creatinine [Mass ratio] 15.3 mg/mg Normal [facility] Comment on above: Performed By: #### O BSCRN #### [facility] [address] [place] [address] Dr. Mercy Mcgovern CBC AUTO DIFFon 02-04-2022 BASO # 0.0 103/ul Normal 0.0-0.1 [facility] Comment on above: Performed By: #### C BC #### [facility] [address] [place] [address] Dr. Mercy Mcgovern Basophils/100 WBC (Bld) 0.2 % Normal 0.2-2.0 [facility] Comment on above: Performed By: #### C BC #### [facility] [address] [place] [address] Dr. Mercy Mcgovern EO # 0.0 103/ul Normal 0.0-0.7 [facility] Comment on above: Performed By: #### C BC #### [facility] [address] [place] [address] Dr. Mercy Mcgovern Eosinophils/100 WBC (Bld) 0.1 % Critically low 0.9-7.0 [facility] Comment on above: Performed By: #### C BC #### [facility] [address] [place] [address] Dr. Mercy Mcgovern Erythrocyte distribution width (RBC) [Ratio] 12.9 % Normal 11.0-15.0 [facility] Comment on above: Performed By: #### C BC #### [facility] [address] [place] [address] Dr. Mercy Mcgovern Hematocrit (Bld) [Volume fraction] 35.5 % Critically low 36.0-48.0 [facility] Comment on above: Performed By: #### C BC #### [facility] [address] [place] [address] Dr. Mercy Mcgovern Hemoglobin (Bld) [Mass/Vol] 11.3 g/dL Critically low 12.0-16.0 [facility] Comment on above: Performed By: #### C BC #### [facility] [address] [place] [address] Dr. Mercy Mcgovern IG # 0.07 10e3/ul Critically high 0.00-0.03 [facility] Comment on above: Performed By: #### C BC #### [facility] [address] [place] [address] Dr. Mercy Mcgovern IG % 0.4 % Normal 0.0-0.5 [facility] Comment on above: Performed By: #### C BC #### [facility] [address] [place] [address] Dr. Mercy Mcgovern LYMPH # 1.8 103/ul Normal 1.2-3.8 [facility] Comment on above: Performed By: #### C BC #### [facility] [address] [place] [address] Dr. Mercy Mcgovern Lymphocytes/100 WBC (Bld) 11.3 % Critically low 20.5-60.0 [facility] Comment on above: Performed By: #### C BC #### [facility] [address] [place] [address] Dr. Mercy Mcgovern MANUAL DIFF REQ NO Normal [facility] Comment on above: Performed By: #### C BC #### [facility] [address] [place] [address] Dr. Mercy Mcgovern MCH (RBC) [Entitic mass] 30.1 pg Normal 26.7-34.0 [facility] Comment on above: Performed By: #### C BC #### [facility] [address] [place] [address] Dr. Mercy Mcgovern MCHC (RBC) [Mass/Vol] 31.8 g/dL Normal 29.9-35.2 [facility] Comment on above: Performed By: #### C BC #### [facility] [address] [place] [address] Dr. Mercy Mcgovern MCV (RBC) [Entitic vol] 94.4 fL Normal 81.0-99.0 [facility] Comment on above: Performed By: #### C BC #### [facility] [address] [place] [address] Dr. Mercy Mcgovern MONO # 1.1 103/ul Critically high 0.3-0.8 [facility] Comment on above: Performed By: #### C BC #### [facility] [address] [place] [address] Dr. Mercy Mcgovern Monocytes/100 WBC (Bld) 6.7 % Normal 1.7-12.0 [facility] Comment on above: Performed By: #### C BC #### [facility] [address] [place] [address] Dr. Mercy Mcgovern NEUT # 12.8 103/ul Critically high 1.4-6.5 [facility] Comment on above: Performed By: #### C BC #### [facility] [address] [place] [address] Dr. Mercy Mcgovern Neutrophils/100 WBC (Bld) 81.3 % Critically high 43.0-75.0 [facility] Comment on above: Performed By: #### C BC #### [facility] [address] [place] [address] Dr. Mercy Mcgovern Platelet mean volume (Bld) [Entitic vol] 9.8 fL Normal 9.5-13.5 [facility] Comment on above: Performed By: #### C BC #### [facility] [address] [place] [address] Dr. Mercy Mcgovern PLT 175 103/ul Normal 150-450 [facility] Comment on above: Performed By: #### C BC #### [facility] [address] [place] [address] Dr. Mercy Mcgovern RBC 3.76 106/ul Critically low 4.20-5.40 [facility] Comment on above: Performed By: #### C BC #### [facility] [address] [place] [address] Dr. Mercy Mcgovern WBC 15.8 103/ul Critically high 4.0-11.0 [facility] Comment on above: Performed By: #### C BC #### [facility] [address] [place] [address] Dr. Mercy Mcgovern H PYLORI TISSUEon 02-04-2022 H PYL TISSUE, UREASE Negative Normal NEGATIVE [facility] Comment on above: Performed By: #### H PYLT #### [facility] [address] [place] [address] Dr. Mercy Mcgovern HEMOGLOBIN AND HEMATOCRITon 02-04-2022 Hematocrit (Bld) [Volume fraction] 34.1 % Critically low 36.0-48.0 [facility] Comment on above: Performed By: #### H GBHCT #### [facility] [address] [place] [address] Dr. Mercy Mcgovern Hemoglobin (Bld) [Mass/Vol] 10.7 g/dL Critically low 12.0-16.0 [facility] Comment on above: Performed By: #### H GBHCT #### [facility] [address] [place] [address] Dr. Mercy Mcgovern Hematocrit (Bld) [Volume fraction] 36.8 % Normal 36.0-48.0 [facility] Comment on above: Performed By: #### O BSCRN #### [facility] [address] [place] [address] Dr. Mercy Mcgovern Hemoglobin (Bld) [Mass/Vol] 11.8 g/dL Critically low 12.0-16.0 [facility] Comment on above: Performed By: #### O BSCRN #### [facility] [address] [place] [address] Dr. Mercy Mcgovern Hematocrit (Bld) [Volume fraction] 37.0 % Normal 36.0-48.0 [facility] Comment on above: Performed By: #### C BC #### [facility] [address] [place] [address] Dr. Mercy Mcgovern Hemoglobin (Bld) [Mass/Vol] 11.8 g/dL Critically low 12.0-16.0 [facility] Comment on above: Performed By: #### C BC #### [facility] [address] [place] [address] Dr. Mercy Mcgovern POINT OF CARE GLUCOSEon 01-22 Glucose [Mass/Vol] 161 mg/dL Critically high 74-106 [facility] Comment on above: Performed By: #### O BSCRN #### [facility] [address] [place] [address] Dr. Mercy Mcgovern Glucose [Mass/Vol] 116 mg/dL Critically high 74-106 [facility] Comment on above: Performed By: #### C BC #### [facility] [address] [place] [address] Dr. Mercy Mcgovern PROF 14(COMP METB)on 022 Albumin [Mass/Vol] 2.7 g/dL Critically low 3.4-5.0 [facility] Comment on above: Performed By: #### C MP #### [facility] [address] [address] [address] Mercy Mcgovern Albumin/Globulin [Mass ratio] 0.9 {ratio} Normal [facility] Comment on above: Performed By: #### C MP #### [facility] [address] [address] [address] Mercy Mcgovern ALP [Catalytic activity/Vol] 85 U/L Normal 46-116 [facility] Comment on above: Performed By: #### C MP #### [facility] [address] [place] [address] Dr. Mercy Mcgovern ALT [Catalytic activity/Vol] 24 U/L Normal 14-59 [facility] Comment on above: Performed By: #### C MP #### [facility] [address] [place] [address] Dr. Mercy Mcgovern Anion gap [Moles/Vol] 14.4 mmol/L Normal [facility] Comment on above: Performed By: #### C MP #### [facility] [address] [place] [address] Dr. Mercy Mcgovern AST [Catalytic activity/Vol] 15 U/L Normal 15-37 [facility] Comment on above: Performed By: #### C MP #### [facility] [address] [place] [address] Dr. Mercy Mcgovern Bilirubin [Mass/Vol] 0.3 mg/dL Normal 0.2-1.0 [facility] Comment on above: Performed By: #### C MP #### [facility] [address] [place] [address] Dr. Mercy Mcgovern Calcium [Mass/Vol] 8.0 mg/dL Critically low 8.5-10.1 [facility] Comment on above: Performed By: #### C MP #### [facility] [address] [place] [address] Dr. Mercy Mcgovern Chloride [Moles/Vol] 108 mmol/L Critically high 98-107 [facility] Comment on above: Performed By: #### C MP #### [facility] [address] [address] [address] Mercy Mcgovern CO2 [Moles/Vol] 20.5 mmol/L Critically low 21.0-32.0 [facility] Comment on above: Performed By: #### C MP #### [facility] [address] [address] [address] Mercy Mcgovern Creatinine [Mass/Vol] 0.78 mg/dL Normal 0.55-1.02 [facility] Comment on above: Performed By: #### C MP #### [facility] [address] [place] [address] Dr. Mercy Mcgovern EGFR-AF MONTENEGRIN >60 Normal >=60 [facility] Comment on above: Performed By: #### C MP #### [facility] [address] [place] [address] Dr. Mercy Mcgovern EGFR-NON AF MONTENEGRIN >60 Normal >=60 [facility] Comment on above: Performed By: #### C MP #### [facility] [address] [place] [address] Dr. Mercy Mcgovern Globulin (S) [Mass/Vol] 3.0 g/dL Normal [facility] Comment on above: Performed By: #### C MP #### [facility] [address] [place] [address] Dr. Mercy Mcgovern Glucose [Mass/Vol] 127 mg/dL Critically high 74-106 [facility] Comment on above: Performed By: #### C MP #### [facility] [address] [place] [address] Dr. Mercy Mcgovern Potassium [Moles/Vol] 3.9 mmol/L Normal 3.5-5.1 [facility] Comment on above: Performed By: #### C MP #### [facility] [address] [place] [address] Dr. Mercy Mcgovern Protein [Mass/Vol] 5.7 g/dL Critically low 6.4-8.[address] [facility] Comment on above: Performed By: #### C MP #### [facility] [address] [place] [address] Dr. Mercy Mcgovern Sodium [Moles/Vol] 139 mmol/L Normal 136-145 [facility] Comment on above: Performed By: #### C MP #### [facility] [address] [place] [address] Dr. Mercy Mcgovern Urea nitrogen [Mass/Vol] 13.0 mg/dL Normal 7.0-18.0 [facility] Comment on above: Performed By: #### C MP #### [facility] [address] [place] [address] Dr. Mercy Mcgovern Urea nitrogen/Creatinine [Mass ratio] 16.7 mg/mg Normal [facility] Comment on above: Performed By: #### C MP #### [facility] [address] [place] [address] Dr. Mercy Mcgovern AMYLASEon 02-03-2022 Amylase [Catalytic activity/Vol] 70 U/L Normal 25-115 [facility] Comment on above: Performed By: #### C BC #### [facility] [address] [place] [address] Dr. Mercy Mcgovern CBC W MANUAL DIFFon 02-04-20 ATYPICAL LYMPH # Normal [facility] Comment on above: Performed By: #### C MP #### [facility] [address] [place] [address] Dr. Mercy Mcgovern ATYPICAL LYMPH % Normal [facility] Comment on above: Performed By: #### C MP #### [facility] [address] [place] [address] Dr. Mercy Mcgovern BAND # 1.0 103/ul Critically high 0.0-0.3 [facility] Comment on above: Performed By: #### C MP #### [facility] [address] [place] [address] Dr. Mercy Mcgovern BAND % 4 % Normal 0-5 [facility] Comment on above: Performed By: #### C MP #### [facility] [address] [place] [address] Dr. Mercy Mcgovern BASOM # 0.00 103/ul Normal 0.00-0.10 [facility] Comment on above: Performed By: #### C MP #### [facility] [address] [place] [address] Dr. Mercy Mcgovern BASOM % 0.0 % Critically low 0.2-2.0 [facility] Comment on above: Performed By: #### C MP #### [facility] [address] [place] [address] Dr. Mercy Mcgovern BLAST # Normal [facility] Comment on above: Performed By: #### C MP #### [facility] [address] [place] [address] Dr. Mercy Mcgovern BLAST % Normal [facility] Comment on above: Performed By: #### C MP #### [facility] [address] [place] [address] Dr. Mercy Mcgovern CORRECTED WBC Normal 4.0-11.0 [facility] Comment on above: Performed By: #### C MP #### [facility] [address] [place] [address] Dr. Mercy Mcgovern EOS # 0.00 103/ul Normal 0.00-0.70 [facility] Comment on above: Performed By: #### C MP #### [facility] [address] [place] [address] Dr. Mercy Mcgovern EOS% 0.0 % Critically low 0.9-7.0 [facility] Comment on above: Performed By: #### C MP #### [facility] [address] [place] [address] Dr. Mercy Mcgovern HCT 45.9 % Normal 36.0-48.0 [facility] Comment on above: Performed By: #### C MP #### [facility] [address] [place] [address] Dr. Mercy Mcgovern HGB 15.0 g/dl Normal 12.0-16.0 [facility] Comment on above: Performed By: #### C MP #### [facility] [address] [place] [address] Dr. Mercy Mcgovern LYMPHM # 2.56 103/ul Normal 1.20-3.80 [facility] Comment on above: Performed By: #### C MP #### [facility] [address] [place] [address] Dr. Mercy Mcgovern LYMPHM% 10.0 % Critically low 20.5-60.0 [facility] Comment on above: Performed By: #### C MP #### [facility] [address] [place] [address] Dr. Mercy Mcgovern MCH 29.9 pg Normal 26.7-34.0 [facility] Comment on above: Performed By: #### C MP #### [facility] [address] [place] [address] Dr. Mercy Mcgovern MCHC 32.7 g/dl Normal 29.9-35.2 [facility] Comment on above: Performed By: #### C MP #### [facility] [address] [place] [address] Dr. Mercy Mcgovern MCV 91.6 fL Normal 81.0-99.0 [facility] Comment on above: Performed By: #### C MP #### [facility] [address] [place] [address] Dr. Mercy Mcgovern METAMYELOCYTE # Normal [facility] Comment on above: Performed By: #### C MP #### [facility] [address] [place] [address] Dr. Mercy Mcgovern METAMYELOCYTE % Normal [facility] Comment on above: Performed By: #### C MP #### [facility] [address] [place] [address] Dr. Meryc Mcgovern MONOM# 1.79 103/ul Critically high 0.30-0.80 [facility] Comment on above: Performed By: #### C MP #### [facility] [address] [place] [address] Dr. Mercy Mcgovern MONOM% 7.0 % Normal 1.7-12.0 [facility] Comment on above: Performed By: #### C MP #### [facility] [address] [place] [address] Dr. Mercy Mcgovern MPV 9.8 fL Normal 9.5-13.5 [facility] Comment on above: Performed By: #### C MP #### [facility] [address] [address] [address] Mercy Mcgovern MYELOCYTE # Normal [facility] Comment on above: Performed By: #### C MP #### [facility] [address] [address] [address] Mercy Mcgovern MYELOCYTE % Normal [facility] Comment on above: Performed By: #### C MP #### [facility] [address] [address] [address] Mercy Mcgovern NRBC Normal [facility] Comment on above: Performed By: #### C MP #### [facility] [address] [address] [address] Mercy Mcgovern PLT 279 103/ul Normal 150-450 [facility] Comment on above: Performed By: #### C MP #### [facility] [address] [address] [address] Mercy Mcgovern RBC 5.01 106/ul Normal 4.20-5.40 [facility] Comment on above: Performed By: #### C MP #### [facility] [address] [address] [address] Mercy Mcgovern RDW 12.8 % Normal 11.0-15.0 [facility] Comment on above: Performed By: #### C MP #### [facility] [address] [address] [address] Mercy Mcgovern SEG # 20.22 103/ul Critically high 1.40-6.50 [facility] Comment on above: Performed By: #### C MP #### [facility] [address] [address] [address] Mercy Mcgovern SEG % 79.0 % Critically high 43.0-75.0 [facility] Comment on above: Performed By: #### C MP #### [facility] [address] [address] [address] Mercy Mcgovern WBC 25.6 103/ul Critically high 4.0-11.0 [facility] Comment on above: Performed By: #### C MP #### [facility] [address] [address] [address] Mercy Mcgovern CRPon 02-03-2022 CRP 6.5 mg/dL Critically high <=1.0 [facility] Comment on above: Performed By: #### O BSCRN #### [facility] [address] [address] [address] ABD/PELVIS WO CONon [...] CLARA GARCIA Date: 2022-02-03 10:30 Normal [facility] CULTURE BLOODon 02-03-2022 Microscopic examination of blood, culture Culture Observations: NO GROWTH AT 5 DAYS. Normal [facility] Comment on above: Performed By: #### C MP #### [facility] [address] [address] [address] Mercy Mcgovern Microscopic examination of blood, culture Culture Observations: NO GROWTH AT 5 DAYS. Normal [facility] Comment on above: Performed By: #### B [id number] #### [facility] [address] [place] [address] Dr. Mercy Mcgovern CULTURE URINEon 02-03-2022 CULTURE URINE Culture Observations : MODERATE GROWTH OF MIXED GENITAL EDDIE. NO POTENTIAL PATHOGENS SEEN. Normal [facility] Comment on above: Performed By: #### U RCX #### [facility] [address] [place] [address] Dr. Mercy Mcgovern Covid-19 PCR (CVDTB)on 01-22 SARS-CoV-2 (COVID-19) RNA MARY+probe Ql (Unsp spec) Not detected Normal NOT DETECTED [facility] Comment on above: Result Comment: When [...] for this test is supported by the [employer] of [employer] and Human Service's declaration that [...] used). Performed By: #### C VDTBH #### [facility] [address] [place] [address] Dr. Mercy Mcgovern ER URINE PROFILEon 2 Bilirubin Ql (U) Negative Normal NEGATIVE [facility] Comment on above: Performed By: #### C BC #### [facility] [address] [place] [address] Dr. Mercy Mcgovern Clarity (U) CLEAR Normal CLEAR [facility] Comment on above: Performed By: #### C BC #### [facility] [address] [place] [address] Dr. Mercy Mcgovern Color (U) YELLOW Normal YELLOW [facility] Comment on above: Performed By: #### C BC #### [facility] [address] [place] [address] Dr. Mercy JONES A micrscopic examina tion will be performed if indicated. Normal [facility] Comment on above: Performed By: #### C BC #### [facility] [address] [place] [address] Dr. Mercy Mcgovern Glucose Ql (U) >1000 Abnormal NEGATIVE [facility] Comment on above: Performed By: #### C BC #### [facility] [address] [place] [address] Dr. Mercy Mcgovern Hemoglobin Ql (U) LARGE Abnormal NEGATIVE [facility] Comment on above: Performed By: #### C BC #### [facility] [address] [place] [address] Dr. Mercy Mcgovern Ketones Ql (U) 15 mg/dl Abnormal NEGATIVE [facility] Comment on above: Performed By: #### C BC #### [facility] [address] [place] [address] Dr. Mercy Mcgovern LEUKOCYTES TRACE Abnormal NEGATIVE [facility] Comment on above: Performed By: #### C BC #### [facility] [address] [place] [address] Dr. Mercy Mcgovern Nitrite Ql (U) Negative Normal NEGATIVE [facility] Comment on above: Performed By: #### C BC #### [facility] [address] [place] [address] Dr. Mercy Mcgovern pH (U) 5.0 [pH] Normal 5-9 [facility] Comment on above: Performed By: #### C BC #### [facility] [address] [place] [address] Dr. Meryc Mcgovern SPEC GRAVITY 1.020 Normal 1.005-<=1. 025 [facility] Comment on above: Performed By: #### C BC #### [facility] [address] [place] [address] Dr. Mercy Mcgovern UA PROTEIN Negative Normal NEGATIVE/ TRACE [facility] Comment on above: Performed By: #### C BC #### [facility] [address] [place] [address] Dr. Mercy Mcgovern UR MICRO IND INDICATED Normal [facility] Comment on above: Performed By: #### C BC #### [facility] [address] [place] [address] Dr. Mercy Mcgovern Urobilinogen Qn (U) 0.2 {Loc'U}/dL Normal 0.2 - 1. 0 [facility] Comment on above: Performed By: #### C BC #### [facility] [address] [place] [address] Dr. Mercy Mcgovern HEMOGLOBIN AND HEMATOCRITon 02-03-2022 Hematocrit (Bld) [Volume fraction] 41.0 % Normal 36.0-48.0 [facility] Comment on above: Performed By: #### H GBHCT #### [facility] [address] [place] [address] Dr. Mercy Mcgovern Hemoglobin (Bld) [Mass/Vol] 13.4 g/dL Normal 12.0-16.0 [facility] Comment on above: Performed By: #### H GBHCT #### [facility] [address] [place] [address] Dr. Mercy Mcgovern LIPASEon 02-03-2022 Lipase [Catalytic activity/Vol] 79.0 U/L Normal 73.0-393.0 [facility] Comment on above: Performed By: #### C BC #### [facility] [address] [place] [address] Dr. Mercy Mcgovern OCC BLD IMMUNO SCREENon 01-22 OCCULT BLOOD Positive Abnormal NEGATIVE [facility] Comment on above: Performed By: #### O BSCRN #### [facility] [address] [place] [address] Dr. Mercy Mcgovern POINT OF CARE GLUCOSEon 01-22 Glucose [Mass/Vol] 144 mg/dL Critically high 74-106 [facility] Comment on above: Performed By: #### P OCGLUC #### [facility] [address] [address] [address] Mercy Mcgovern Glucose [Mass/Vol] 133 mg/dL Critically high 74-106 [facility] Comment on above: Performed By: #### O BSCRN #### [facility] [address] [address] [address] Mercy Mcgovern PROF 14(COMP METB)on 022 Albumin [Mass/Vol] 3.9 g/dL Normal 3.4-5.0 [facility] Comment on above: Performed By: #### O BSCRN #### [facility] [address] [address] [address] Mercy Mcgovern Albumin/Globulin [Mass ratio] 1.0 {ratio} Normal [facility] Comment on above: Performed By: #### O BSCRN #### [facility] [address] [place] [address] Dr. Mercy Mcgovern ALP [Catalytic activity/Vol] 156 U/L Critically high 46-116 [facility] Comment on above: Performed By: #### O BSCRN #### [facility] [address] [address] [address] Mercy Mcgovern ALT [Catalytic activity/Vol] 40 U/L Normal 14-59 [facility] Comment on above: Performed By: #### O BSCRN #### [facility] [address] [address] [address] Mercy Mcgovern Anion gap [Moles/Vol] 18.7 mmol/L Normal [facility] Comment on above: Performed By: #### O BSCRN #### [facility] [address] [address] [address] Mercy Mcgovern AST [Catalytic activity/Vol] 23 U/L Normal 15-37 [facility] Comment on above: Performed By: #### O BSCRN #### [facility] [address] [address] [address] Mercy Mcgovern Bilirubin [Mass/Vol] 0.4 mg/dL Normal 0.2-1.0 [facility] Comment on above: Performed By: #### O BSCRN #### [facility] [address] [address] [address] Mercy Mcgovern Calcium [Mass/Vol] 9.8 mg/dL Normal 8.5-10.1 [facility] Comment on above: Performed By: #### O BSCRN #### [facility] [address] [address] [address] Mercy Mcgovern Chloride [Moles/Vol] 101 mmol/L Normal 98-107 [facility] Comment on above: Performed By: #### O BSCRN #### [facility] [address] [address] [address] Mercy Mcgovern CO2 [Moles/Vol] 20.9 mmol/L Critically low 21.0-32.0 [facility] Comment on above: Performed By: #### O BSCRN #### [facility] [address] [address] [address] Mercy Mcgovern Creatinine [Mass/Vol] 1.76 mg/dL Critically high 0.55-1.02 [facility] Comment on above: Performed By: #### O BSCRN #### [facility] [address] [address] [address] Mercy Mcgovern EGFR-AF MONTENEGRIN 35 mL/min/1.73m2 Critically low >=60 [facility] Comment on above: Performed By: #### O BSCRN #### [facility] [address] [address] [address] Mercy Mcgovern EGFR-NON AF MONTENEGRIN 29 mL/min/1.73m2 Critically low >=60 [facility] Comment on above: Performed By: #### O BSCRN #### [facility] [address] [address] [address] Mercy Mcgovern Globulin (S) [Mass/Vol] 3.8 g/dL Normal [facility] Comment on above: Performed By: #### O BSCRN #### [facility] [address] [address] [address] Mercy Mcgovern Glucose [Mass/Vol] 216 mg/dL Critically high 74-106 [facility] Comment on above: Performed By: #### O BSCRN #### [facility] [address] [address] [address] Mercy Mcgovern Potassium [Moles/Vol] 4.6 mmol/L Normal 3.5-5.1 [facility] Comment on above: Performed By: #### O BSCRN #### [facility] [address] [place] [address] Dr. Mercy Mcgovern Protein [Mass/Vol] 7.7 g/dL Normal 6.4-8.2 [facility] Comment on above: Performed By: #### O BSCRN #### [facility] [address] [place] [address] Dr. Mercy Mcgovern Sodium [Moles/Vol] 136 mmol/L Normal 136-145 [facility] Comment on above: Performed By: #### O BSCRN #### [facility] [address] [place] [address] Dr. Mercy Mcgovern Urea nitrogen [Mass/Vol] 32.0 mg/dL Critically high 7.0-18.0 [facility] Comment on above: Performed By: #### O BSCRN #### [facility] [address] [place] [address] Dr. Mercy Mcgovern Urea nitrogen/Creatinine [Mass ratio] 18.2 mg/mg Normal [facility] Comment on above: Performed By: #### O BSCRN #### [facility] [address] [place] [address] Dr. Mercy Mcgovern PROTIMEon 02-03-2022 INR Coag (PPP) [Relative time] 1.06 {INR} Normal [facility] Comment on above: Performed By: #### O BSCRN #### [facility] [address] [place] [address] Dr. Mercy Mcgovern INR GUIDELINES SEE BELOW Normal [facility] Comment on above: Result Comment: MODESTO RED INR: 2.0 - 3.0 CONDITIONS NOT LISTED BELOW 2.5 - 3.5 FOR PROSTHETIC HEART VALVE REPLACEMENT 2.5 - 3.5 RECURRENT THROMBOSIS Performed By: #### O BSCRN #### [facility] [address] [place] [address] Dr. Mercy Mcgovern PT Coag (PPP) [Time] 11.4 s Normal 9.0-11.6 [facility] Comment on above: Performed By: #### O BSCRN #### [facility] [address] [place] [address] Dr. Mercy Mcgovern PTTon 02-03-2022 aPTT Coag (Bld) [Time] 28.8 s Normal 22.3-36.2 [facility] Comment on above: Performed By: #### O BSCRN #### [facility] [address] [place] [address] Dr. Mercy Mcgovern SED RATE [facility] 2021 SED RATE 18 mm/hr Normal <=30 [facility] Comment on above: Performed By: #### C BC #### [facility] [address] [place] [address] Dr. Mercy Mcgovern TYPE AND SCREENon 02-03-2022 TYPE AND SCREEN Negative Normal [facility] Comment on above: Performed By: #### C MP #### [facility] [address] [place] [address] Dr. Mercy Mcgovern URINE MICROSCOPIC ONLYon BACTERIA SMALL Abnormal NONE SEEN [facility] Comment on above: Performed By: #### C BC #### [facility] [address] [place] [address] Dr. Mercy Mcgovern Bacteria identified Cx Nom (U) INDICATED Normal [facility] Comment on above: Performed By: #### C BC #### [facility] [address] [place] [address] Dr. Mercy Mcgovern CAST NONE SEEN Normal NONE SEEN [facility] Comment on above: Performed By: #### C BC #### [facility] [address] [place] [address] Dr. Mercy Mcgovern Crystals LM Nom (Urine sed) NONE SEEN Normal NONE SEEN [facility] Comment on above: Performed By: #### C BC #### [facility] [address] [place] [address] Dr. Mercy Mcgovern Epithelial cells LM Ql (Urine sed) MODERATE Abnormal NONE SEEN /RARE [facility] Comment on above: Performed By: #### C BC #### [facility] [address] [place] [address] Dr. Mercy Mcgovern MUCOUS NONE SEEN Normal NONE SEEN [facility] Comment on above: Performed By: #### C BC #### [facility] [address] [address] [address] Mercy Mcgovern RBC 5-10 Abnormal 0-2 [facility] Comment on above: Performed By: #### C BC #### [facility] [address] [address] [address] Mercy Mcgovern WBC 5-10 Abnormal NONE SEEN [facility] Comment on above: Performed By: #### C BC #### [facility] [address] [place] [address] Dr. Mercy Mcgovern Vital Signs Date Time Vital Sign Value Performing Clinician Facility 01-27-2025 [id number] Body height 170.18 cm Shu Painter APRN Work Phone: [facility] 01-27-2025 13:26-0400 Body mass index (BMI) [Ratio] 24.5 kg/m2 Shu Painter APRN Work Phone: [facility] 01-27-2025 13:26-0400 Body weight 70.87 kg Shu Painter APRN Work Phone: [facility] 01-27-2025 13:26-0400 Diastolic blood pressure 60 mm[Hg] Shu Painter APRN Work Phone: [facility] 01-27-2025 13:26-0400 Heart rate 67 /min Shu Painter APRN Work Phone: [facility] 01-27-2025 13:26-0400 Systolic blood pressure 95 mm[Hg] Shu Painter APRN Work Phone: [facility] 01-17-2025 16:07-0400 Body height 170.18 cm [facility] 01-17-2025 16:07-0400 Body mass index (BMI) [Ratio] 24.5 kg/m2 [facility] 01-17-2025 16:07-0400 Body temperature 98 [degF] [facility] 01-17-2025 16:07-0400 Body weight 71.21 kg [facility] 01-17-2025 16:07-0400 Diastolic blood pressure 51 mm[Hg] [facility] 01-17-2025 16:07-0400 Heart rate 85 /min [facility] 01-17-2025 16:07-0400 Respiratory rate 14 /min [facility] 01-17-2025 16:07-0400 SaO2% (BldA) [Mass fraction] 98 % [facility] 01-17-2025 16:07-0400 Systolic blood pressure 115 mm[Hg] [facility] 10-04-2024 08:58-0500 Body height 170.18 cm Ciera Les [employer]TRIDGE [employer]SEMBLER Work Phone: [facility] 10-04-2024 08:58-0500 Body mass index (BMI) [Ratio] 23.3 kg/m2 Ciera Les [employer]SEM[employer] Work Phone: [facility] 10-04-2024 08:58-0500 Body weight 67.58 kg Ciera Les [employer]SEM[employer] Work Phone: [facility] 10-04-2024 08:58-0500 Diastolic blood pressure 76 mm[Hg] 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 09-20-2024 11:09-0500 Body temperature 98.6 [degF] CHLOÉ JERICA [facility] 09-20-2024 11:09-0500 Diastolic blood pressure 73 mm[Hg] CHLOÉ JERICA [facility] 09-20-2024 11:09-0500 Heart rate 86 /min CHLOÉ JERICA [facility] 09-20-2024 11:09-0500 Respiratory rate 18 /min CHLOÉ JERICA [facility] 09-20-2024 11:09-0500 Systolic blood pressure 135 mm[Hg] CHLOÉ JERICA [facility] 08-25-2024 10:14-0500 Body height 170.2 cm Dominic [place] [employer]SEM[employer]ER Work Phone: [facility] 08-25-2024 10:14-0500 Body mass index (BMI) [Ratio] 23.78 kg/m2 Dominic [place] [employer] Work Phone: [facility] 08-25-2024 10:14-0500 Body weight 68.86 kg Dominic Hatimothyenburg E[employer]SEM[employer]ER Work Phone: [facility] 08-25-2024 10:14-0500 Diastolic blood pressure 80 mm[Hg] Dominic Hackenburg [employer] Work Phone: [facility] 08-25-2024 10:14-0500 Heart rate 73 /min Dominic Hatim[place] [employer]ER Work Phone: [facility] 08-25-2024 10:14-0500 Systolic blood pressure 134 mm[Hg] Dominic Hackenburg ELECT[employer]SEM[employer]ER Work Phone: [facility] 07-28-2024 10:08-0500 Body height 170.2 cm Dominic [place] ELECTR[employer]SEM[employer]ER Work Phone: [facility] 07-28-2024 10:08-0500 Body mass index (BMI) [Ratio] 23.74 kg/m2 Dominic Roldan[place] [employer]SEM[employer]ER Work Phone: [facility] 07-28-2024 10:08-0500 Body weight 68.77 kg Dominic [place] E[employer]SEM[employer]ER Work Phone: [facility] 07-28-2024 10:08-0500 Diastolic blood pressure 70 mm[Hg] Dominic Roldanenburg ELECTR[employer] ASSEM[employer]ER Work Phone: [facility] 07-28-2024 10:08-0500 Heart rate 71 /min Dominic [place] E[employer] ASSEM[employer]ER Work Phone: [facility] 07-28-2024 10:08-0500 Systolic blood pressure 134 mm[Hg] Dominic [place] [employer]SEM[employer]ER Work Phone: [facility] 07-22-2024 16:38-0500 Body height 170.18 cm Ciera Les [employer]IDGE ASSEMBLER Work Phone: [facility] 07-22-2024 16:38-0500 Body mass index (BMI) [Ratio] 23.3 kg/m2 Ciera Les [employer]SEM[employer] Work Phone: [facility] 07-22-2024 16:38-0500 Body temperature 97.2 [degF] Ciera Les [employer]TR[employer] ASSEMBLER Work Phone: [facility] 07-22-2024 16:38-0500 Body weight 67.69 kg Ciera Les [employer]GE ASSEMBLER Work Phone: [facility] 07-22-2024 16:38-0500 Diastolic blood pressure 72 mm[Hg] Ciera Les [employer]IDGE ASSEMBLER Work Phone: [facility] 07-22-2024 16:38-0500 Heart rate 85 /min Ciera Les [employer]IDGE ASSEMBLER Work Phone: [facility] 07-22-2024 16:38-0500 Respiratory rate 18 /min Ciera Les [employer]TRIDGE ASSEMBLER Work Phone: [facility] 07-22-2024 16:38-0500 SaO2% (BldA) [Mass fraction] 99 % Cierachente Johnsonb CARTRIDGE ASSEMBLER Work Phone: [facility] 07-22-2024 16:38-0500 Systolic blood pressure 146 mm[Hg] Cierachente Johnsonb CARTRIDGE ASSEMBLER Work Phone: [facility] 07-07-2024 14:32-0500 Body mass index (BMI) [Ratio] 24.12 kg/m2 Xiao Mascorro ELECTRIC FAN ASSEMBLER Work Phone: [facility] 07-07-2024 14:32-0500 Body temperature 97 [degF] Xiao Mascorro ELECTRIC FAN ASSEMBLER Work Phone: [facility] 07-07-2024 14:32-0500 Body weight 69.85 kg Xiao Mascorro ELECTRIC FAN ASSEMBLER Work Phone: [facility] 07-07-2024 14:32-0500 Diastolic blood pressure 58 mm[Hg] Xiao Mascorro ELECTRIC FAN ASSEMBLER Work Phone: [facility] 07-07-2024 14:32-0500 Heart rate 83 /min Xiao Mascorro ELECTRIC FAN ASSEMBLER Work Phone: [facility] 07-07-2024 14:32-0500 SaO2% (BldA) [Mass fraction] 99 % Xiao Mascorro ELECTRIC FAN ASSEMBLER Work Phone: [facility] 07-07-2024 14:32-0500 Systolic blood pressure 118 mm[Hg] Xiao Mascorro ELECTRIC FAN ASSEMBLER Work Phone: [facility] 06-22-2024 09:53-0400 Body height 170.2 cm Mahamed Acharya DO Work Phone: [facility] 06-22-2024 09:53-0400 Body mass index (BMI) [Ratio] 23.93 kg/m2 Mahamed Acharya DO Work Phone: [facility] 06-22-2024 09:53-0400 Body weight 69.31 kg Mahamed Acharya DO Work Phone: [facility] 06-22-2024 09:53-0400 Diastolic blood pressure 82 mm[Hg] Mahamed Acharya DO Work Phone: [facility] 06-22-2024 09:53-0400 Heart rate 62 /min Mahamed Acharya DO Work Phone: [facility] 06-22-2024 09:53-0400 Systolic blood pressure 150 mm[Hg] Mahamed Acharya DO Work Phone: [facility] 06-17-2024 09:10-0400 Body height 170.2 cm Zahira Lundberg ELECTRIC FAN ASSEMBLER Work Phone: [facility] 06-17-2024 09:10-0400 Body mass index (BMI) [Ratio] 24.25 kg/m2 Zahira Lundberg ELECTRIC FAN ASSEMBLER Work Phone: [facility] 06-17-2024 09:10-0400 Body weight 70.22 kg Zahira Lundberg ELECTRIC FAN ASSEMBLER Work Phone: [facility] 06-17-2024 09:10-0400 Diastolic blood pressure 80 mm[Hg] Zahira Lundberg ELECTRIC FAN ASSEMBLER Work Phone: [facility] 06-17-2024 09:10-0400 Heart rate 73 /min Zahira Lundberg ELECTRIC FAN ASSEMBLER Work Phone: [facility] 06-17-2024 09:10-0400 SaO2% (BldA) [Mass fraction] 97 % Zahira Lundberg ELECTRIC FAN ASSEMBLER Work Phone: [facility] 06-17-2024 09:10-0400 Systolic blood pressure 130 mm[Hg] Zahira Lundberg ELECTRIC FAN ASSEMBLER Work Phone: [facility] 06-03-2024 15:30-0400 Body height 170.2 cm Mateo Martinez ELECTRIC FAN ASSEMBLER Work Phone: [facility] 06-03-2024 15:30-0400 Body mass index (BMI) [Ratio] 24.59 kg/m2 Mateo Martinez ELECTRIC FAN ASSEMBLER Work Phone: [facility] 06-03-2024 15:30-0400 Body temperature 96.8 [degF] Mateo Martinez ELECTRIC FAN ASSEMBLER Work Phone: [facility] 06-03-2024 15:30-0400 Body weight 71.22 kg Mateo Martinez ELECTRIC FAN ASSEMBLER Work Phone: [facility] 06-03-2024 15:30-0400 Diastolic blood pressure 76 mm[Hg] Mateo Martinez ELECTRIC FAN ASSEMBLER Work Phone: [facility] 06-03-2024 15:30-0400 Heart rate 77 /min Mateo Martinez ELECTRIC FAN ASSEMBLER Work Phone: [facility] 06-03-2024 15:30-0400 SaO2% (BldA) [Mass fraction] 99 % Mateo Martinez ELECTRIC FAN ASSEMBLER Work Phone: [facility] 06-03-2024 15:30-0400 Systolic blood pressure 128 mm[Hg] Mateo Martinez ELECTRIC FAN ASSEMBLER Work Phone: [facility] 12-17-2023 10:21-0400 Body height 170.2 cm Mahamed Acharya DO Work Phone: [facility] 12-17-2023 10:21-0400 Body mass index (BMI) [Ratio] 23.65 kg/m2 Mahamed Acharya DO Work Phone: [facility] 12-17-2023 10:21-0400 Body weight 68.49 kg Mahamed Acharya DO Work Phone: [facility] 12-17-2023 10:21-0400 Diastolic blood pressure 76 mm[Hg] Mahamed Acharya DO Work Phone: [facility] 12-17-2023 10:21-0400 Heart rate 72 /min Mahamed Acharya DO Work Phone: [facility] 12-17-2023 10:21-0400 Systolic blood pressure 124 mm[Hg] Mahamed Acharya DO Work Phone: [facility] 11-24-2023 09:09-0400 Blood Pressure Location CHLOÉ PIZANO [facility] 11-24-2023 09:09-0400 Diastolic blood pressure 60 mm[Hg] CHLOÉ PIZANO [facility] 11-24-2023 09:09-0400 Heart rate 68 /min CHLOÉ PIZANO [facility] 11-24-2023 09:09-0400 Respiratory rate 18 /min CHLOÉ PIZANO [facility] 11-24-2023 09:09-0400 Systolic blood pressure 135 mm[Hg] CHLOÉ PIZANO [facility] 07-02-2023 22:00-0500 Body temperature 97.1 [degF] PA-C Joe Meneses Work Phone: [facility] 07-02-2023 22:00-0500 Diastolic blood pressure 62 mm[Hg] PA-C Joe Meneses Work Phone: [facility] 07-02-2023 22:00-0500 Heart rate 90 /min PA-C Joe Meneses Work Phone: [facility] 07-02-2023 22:00-0500 Respiratory rate 18 /min PA-C Joe Meneses Work Phone: [facility] 07-02-2023 22:00-0500 SaO2% (BldA) [Mass fraction] 99 % PA-C Joe Meneses Work Phone: [facility] 07-02-2023 22:00-0500 Systolic blood pressure 134 mm[Hg] PA-C Joe Meneses Work Phone: [facility] 07-02-2023 17:55-0500 Body height 170.18 cm HARISH Beauchampur Meneses Work Phone: [facility] 07-02-2023 17:55-0500 Body weight 63.3 kg HARISH Meneses Work Phone: [facility] 06-18-2023 10:20-0400 Body height 170.18 cm Chloé Shea Other [employer] Other 06-18-2023 10:20-0400 Body mass index (BMI) [Ratio] 20.83 kg/m2 Chloé Shea Other [employer] Other 06-18-2023 10:20-0400 Body temperature 97.2 [degF] Chloé Shea Other [employer] Other 06-18-2023 10:20-0400 Body weight 60.33 kg Chloé Shea Other [employer] Other 06-18-2023 10:20-0400 Diastolic blood pressure 54 mm[Hg] Chloé Shea Other [employer] Other 06-18-2023 10:20-0400 Respiratory rate 18 /min Chloé Shea Other [employer] Other 06-18-2023 10:20-0400 SaO2% (BldA) [Mass fraction] 97 % Chloé Shea Other [employer] Other 06-18-2023 10:20-0400 Systolic blood pressure 103 mm[Hg] Chloé Shea Other [facility] [employer] Other 05-08-2023 09:32-0400 Body height 170.18 cm Bonita G Danielle Work Phone: [facility] DO Work Phone: 05-08-2023 09:32-0400 Body mass index (BMI) [Ratio] 21.77 kg/m2 Bonita G Danielle Work Phone: [facility] [employer] [address] DO Work Phone: 05-08-2023 09:32-0400 Body surface area Derived from formula 1.73 m2 Bonita G Danielle Work Phone: [facility] [employer] DO Work Phone: 05-08-2023 09:32-0400 Body weight 63.05 kg Bonita G Danielle Work Phone: [facility] [employer] [address] DO Work Phone: 05-08-2023 09:32-0400 Diastolic blood pressure 70 mm[Hg] Bonita G Danielle Work Phone: [facility] [employer] DO Work Phone: 05-08-2023 09:32-0400 Heart rate 84 /min Bonita G Danielle Work Phone: [facility] [address] DO Work Phone: 05-08-2023 09:32-0400 Systolic blood pressure 116 mm[Hg] Bonita G Danielle Work Phone: [facility] [address] DO Work Phone: 04-30-2023 12:00-0400 Body temperature 98.2 [degF] PHYSICIAN NO [facility] 04-30-2023 12:00-0400 Diastolic blood pressure 83 mm[Hg] PHYSICIAN NO [facility] 04-30-2023 12:00-0400 Heart rate 62 /min PHYSICIAN NO [facility] 04-30-2023 12:00-0400 Respiratory rate 16 /min PHYSICIAN NO [facility] 04-30-2023 12:00-0400 SaO2% (BldA) [Mass fraction] 98 % PHYSICIAN NO [facility] 04-30-2023 12:00-0400 Systolic blood pressure 130 mm[Hg] PHYSICIAN NO [facility] 04-30-2023 05:29-0400 Body weight 65.4 kg PHYSICIAN NO [facility] 04-28-2023 22:41-0400 Body height 170.18 cm PHYSICIAN NO [facility] 04-28-2023 22:00-0400 Diastolic blood pressure 55 mm[Hg] PHYSICIAN NO [facility] 04-28-2023 22:00-0400 Heart rate 77 /min PHYSICIAN NO [facility] 04-28-2023 22:00-0400 Respiratory rate 18 /min PHYSICIAN NO [facility] 04-28-2023 22:00-0400 SaO2% (BldA) [Mass fraction] 100 % PHYSICIAN NO [facility] 04-28-2023 22:00-0400 Systolic blood pressure 112 mm[Hg] PHYSICIAN NO [facility] 04-28-2023 18:47-0400 Body height 170.18 cm PHYSICIAN NO [facility] 04-28-2023 18:47-0400 Body temperature 98.4 [degF] PHYSICIAN NO [facility] 04-28-2023 18:47-0400 Body weight 68.1 kg PHYSICIAN NO [facility] 03-06-2023 13:20-0400 Body height 170.18 cm Kathya Chang Other [employer] Other 03-06-2023 13:20-0400 Body mass index (BMI) [Ratio] 21.45 kg/m2 Kathya Chang Other [employer] Other 03-06-2023 13:20-0400 Body temperature 97.2 [degF] Kathya Bernardo Other [employer] Other 03-06-2023 13:20-0400 Body weight 62.14 kg Kathya Bernardo Other [employer] Other 03-06-2023 13:20-0400 Diastolic blood pressure 79 mm[Hg] Kathya Bernardo Other [employer] Other 03-06-2023 13:20-0400 Respiratory rate 18 /min Kathya Chang Other [employer] Other 03-06-2023 13:20-0400 SaO2% (BldA) [Mass fraction] 98 % Kathya Chang Other [employer] Other 03-06-2023 13:20-0400 Systolic blood pressure 145 mm[Hg] Kathya Chang Other [employer] Other 09-07-2022 10:40-0500 Body height 170.18 cm Maria Esther Isma Other [employer] Other 09-07-2022 10:40-0500 Body mass index (BMI) [Ratio] 22.39 kg/m2 Maria Esther Ashby Other [employer] Other 09-07-2022 10:40-0500 Body temperature 97.1 [degF] Maria Esther Ashby Other [employer] Other 09-07-2022 10:40-0500 Body weight 64.86 kg Maria Esther Ashby Other [employer] Other 09-07-2022 10:40-0500 Respiratory rate 18 /min Maria Esther Ashby Other [employer] Other 09-07-2022 10:40-0500 SaO2% (BldA) [Mass fraction] 98 % Maria Esther Ashby Other [employer] Other 05-06-2022 17:20-0400 Body height 170.18 cm Maria Esther Ashby Other [employer] Other 05-06-2022 17:20-0400 Body mass index (BMI) [Ratio] 23.65 kg/m2 Maria Esther Ashby Other [employer] Other 05-06-2022 17:20-0400 Body temperature 97.1 [degF] Maria Esther Ashby Other [employer] Other 05-06-2022 17:20-0400 Body weight 68.49 kg Maria Esther Ashby Other [employer] Other 05-06-2022 17:20-0400 Respiratory rate 18 /min Maria Esther Ashby Other [employer] Other 05-06-2022 17:20-0400 SaO2% (BldA) [Mass fraction] 97 % Maria Esther Ashby Other [employer] Other 04-19-2022 10:10-0400 Body height 170.18 cm Janet Acevedo Other [employer] Other 04-19-2022 10:10-0400 Body mass index (BMI) [Ratio] 23.74 kg/m2 Janet Acevedo Other [employer] Other 04-19-2022 10:10-0400 Body weight 68.77 kg Janet Acevedo Other [employer] Other 04-19-2022 10:10-0400 Diastolic blood pressure 78 mm[Hg] Janet Acevedo Other [employer] Other 04-19-2022 10:10-0400 Respiratory rate 18 /min Janet Acevedo Other [employer] Other 04-19-2022 10:10-0400 SaO2% (BldA) [Mass fraction] 100 % Janet Acevedo Other [employer] Other 04-19-2022 10:10-0400 Systolic blood pressure 123 mm[Hg] Janet Acevedo Other [employer] Other Encounters Encounter Date Encounter Type Care Provider Facility Start: 01-27-2025 End: 01-27-2025 ambulatory Shu Painter APRN Work Phone: [facility] Work Phone: Start: 01-27-2025 End: 01-27-2025 Patient encounter procedure Shu Painter APRN Work Phone: [facility] Work Phone: Start: 01-17-2025 End: 01-17-2025 Departed Referred Shu Painter APRN Work Phone: [facility] [place] Work Phone: Start: 01-17-2025 End: 01-17-2025 ambulatory Shu Painter [facility] Work Phone: Start: 01-17-2025 End: 01-17-2025 Patient encounter procedure [facility] Work Phone: Start: 11-26-2024 End: 11-26-2024 Refill Zahira Lundberg NP Work Phone: [facility] Comment on above: Primary hypertension (CMS/HCC) Start: 10-10-2024 End: 10-10-2024 ambulatory CHLOÉ E JERICA Facility:[facility] Start: 10-10-2024 End: 10-10-2024 Patient encounter procedure CHLOÉ Dayana JERICA [facility] Start: 10-07-2024 End: 10-07-2024 ambulatory PA-C CHLOÉ Dayana JERICA Facility:[facility] Start: 10-07-2024 End: 10-07-2024 Lab Drop off CHLOÉ Dayana JOSERY [facility] Start: 10-07-2024 End: 10-07-2024 ambulatory [facility]LOÉ E JERICA [facility] Start: 10-07-2024 End: 10-07-2024 Patient encounter procedure CHLOÉ Dayana JERICA [facility] Start: 10-04-2024 Patient encounter status Michelle Saldana APRN Work Phone: [facility] Start: 10-04-2024 End: 10-04-2024 ambulatory NON STAFF [facility] Work Phone: Start: 10-04-2024 End: 10-04-2024 Encounter for general adult medical examination without abnormal findings Ciera Saldana APRN Work Phone: [facility] Start: 10-04-2024 End: 10-04-2024 Patient encounter procedure Ciear Saldana APRN Work Phone: [facility] Work Phone: Start: 09-20-2024 End: 09-20-2024 ambulatory CHLOÉSTEVE PIZANO Facility:[facility] Start: 09-20-2024 End: 09-20-2024 Lab Drop off CHLOÉ PIZANO [facility] Start: 09-20-2024 End: 09-20-2024 ambulatory CHLOÉ Dayana JOSERY Facility:[facility] Start: 09-20-2024 End: 09-20-2024 Patient encounter procedure CHLOÉ PIZANO [facility] Start: 08-25-2024 End: 08-25-2024 Bamboo flowsheet Dominic Ballard ELECTRIC FAN ASSEMBLER Work Phone: [facility] Start: 08-25-2024 End: 08-25-2024 Bamboo flowsheet Dominic A Haajay ELECTRIC FAN ASSEMBLER Work Phone: [facility] Start: 08-25-2024 End: 08-25-2024 Office outpatient visit 25 minutes Dominic Ballard ELECTRIC FAN ASSEMBLER Work Phone: [facility] Comment on above: Primary hypertension (CMS/HCC) (Primary Dx); 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); ALDAIR (generalized anxiety disorder) (CMS/HCC); Type 2 diabetes mellitus with diabetic cataract (CMS/HCC) Start: 08-25-2024 End: 08-25-2024 ambulatory DOMINIC A HATIMOTHYENBURG Not Available Start: 07-31-2024 End: 08-15-2024 External Result Encounter Zahira Lundberg ELECTRIC FAN ASSEMBLER Work Phone: [facility] External Department Unsolicited Start: 07-31-2024 End: 08-15-2024 External Result Encounter Zahira Lundberg ELECTRIC FAN ASSEMBLER Work Phone: [facility] Unsolicited Start: 07-28-2024 End: 07-28-2024 Bamboo flowsheet Dominic Ballard ELECTRIC FAN ASSEMBLER Work Phone: [facility] Start: 07-28-2024 End: 07-28-2024 Bamboo flowsheet Dominic Ballard ELECTRIC FAN ASSEMBLER Work Phone: [facility] Start: 07-28-2024 End: 07-28-2024 Office outpatient visit 25 minutes Dominic Reeseajay ELECTRIC FAN ASSEMBLER Work Phone: [facility] Comment on above: Mixed hyperlipidemia (CMS/HCC) (Primary Dx); Recurrent major depressive disorder, in partial remission (HCC) (CMS/HCC); Screening mammogram for breast cancer; ALDAIR (generalized anxiety disorder) (CMS/HCC); Recurrent UTI; Iron deficiency anemia, unspecified iron deficiency anemia type Start: 07-28-2024 End: 07-28-2024 ambulatory DOMINIC A NELLIE Not Available Start: 07-22-2024 End: 07-22-2024 ambulatory NON STAFF Facility:[facility] Start: 07-22-2024 End: 07-22-2024 Departed Referred Ciera Johnsonkris VALLEJO Work Phone: [facility] [place] Work Phone: Start: 07-22-2024 End: 07-22-2024 Patient encounter procedure Cierahcente Saldana APRN Work Phone: [facility] Work Phone: Start: 07-07-2024 End: 07-07-2024 ambulatory XIAO MASCORRO Not Available Start: 07-07-2024 End: 07-07-2024 Office outpatient visit 25 minutes Xiao Mascorro ELECTRIC FAN ASSEMBLER Work Phone: [facility] Comment on above: Acute cystitis witho ut hematuria (Primary Dx); Dysuria Start: 06-22-2024 End: 06-22-2024 Office outpatient visit 15 minutes Mahamed Acharya DO Work Phone: [facility] Comment on above: 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; S/P right coronary artery (RCA) stent placement; Primary hypertension; Mixed hyperlipidemia; Type 2 diabetes mellitus with other diabetic kidney complication; BMI 23.0-23.9, adult; Smoker; [place] (myocardial infarction) Start: 06-22-2024 End: 06-22-2024 ambulatory [facility] Start: 06-17-2024 End: 06-17-2024 Bamboo flowsheet Zahira Lundberg ELECTRIC FAN ASSEMBLER Work Phone: [facility] Start: 06-17-2024 End: 06-17-2024 Bamboo flowsheet Zahira Lundberg ELECTRIC FAN ASSEMBLER Work Phone: [facility] Start: 06-17-2024 End: 06-17-2024 ambulatory ZAHIRA LUNDBERG Not Available Start: 06-17-2024 End: 06-17-2024 Office outpatient visit 25 minutes Zahira Lundberg ELECTRIC FAN ASSEMBLER Work Phone: [facility] Comment on above: Mixed hyperlipidemia (CMS/HCC) (Primary [...] (CMS/HCC) Start: 06-03-2024 End: 06-03-2024 ambulatory MATEO L ELSA Not Available Start: 06-03-2024 End: 06-03-2024 Office outpatient visit 25 minutes Mateo L Moosic ELECTRIC FAN ASSEMBLER Work Phone: [facility] Comment on above: Acute cystitis witho ut hematuria (Primary Dx); Dysuria Start: 06-03-2024 End: 06-03-2024 Bamboo flowsheet Mateo L Elsa ELECTRIC FAN ASSEMBLER Work Phone: [facility] Start: 06-03-2024 End: 06-03-2024 Bamboo flowsheet Mateo L Elsa ELECTRIC FAN ASSEMBLER Work Phone: [facility] Start: 05-02-2024 End: 05-02-2024 ambulatory Joe Jessika CARTAGENA Facility:[facility] Start: 05-02-2024 End: 05-02-2024 Patient encounter procedure Joeolayinka CARTAGENA 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 Start: 09-15-2023 End: 09-15-2023 ambulatory BONITA SANTOS Not Available Start: 07-02-2023 End: 07-02-2023 Emergency department patient visit HARISH Meneses Work Phone: [facility] Work Phone: Start: 06-18-2023 End: 06-18-2023 ambulatory Chloé Shea Other [facility] [employer] Other Start: 06-18-2023 Office outpatient vi sit 15 minutes Chloé Shea [facility] Start: 06-18-2023 End: 06-18-2023 Departed Referred HARISH Meneses Work Phone: [facility] [place] Work Phone: Start: 05-08-[address] Mahamed Acharya Facility: Start: 05-08-2023 Patient encounter procedure Bonita Irizarryefe Work Phone: [facility] DO Work Phone: Start: 05-08-2023 Transitional care jyothi teixeira srvc 7 day discharge Bonita Irizarryefe Work Phone: [facility] [address] DO Work Phone: Start: 04-30-[address] Mahamed Acharya Facility:[id number] Start: 04-29-2023 End: 04-30-2023 Evaluation and management of inpatient PHYSICIAN NO [facility] Work Phone: Start: 04-29-[address] Mahamed Acharya Facility:[facility] Start: 04-29-[address] Mahamed Acharya Fac ility:[id number] Start: 04-28-2023 Evaluation and management of inpatient PHYSICIAN NO [facility] Work Phone: Start: 04-21-2023 Telephone encounter Jose Eduardo bauman MD Work Phone: Cardiology Comment on above: Received Outside Med ical Records Start: 03-08-2023 End: 03-08-2023 ambulatory Kathya Chang Other [facility] [employer] Other Start: 03-08-2023 Telephone encounter Kathya Chang [facility] [address] Start: 03-06-2023 Office outpatient vi sit 15 minutes Kathya Chang [facility] Start: 03-06-2023 End: 03-06-2023 ambulatory GENEVIEVE Chang Work Phone: [facility] Work Phone: Start: 03-06-2023 End: 03-06-2023 Departed Referred GENEVIEVE Chang Work Phone: [facility] [place] Work Phone: Start: 01-20-2023 End: 01-21-2023 ambulatory NARENDRANATH LAKSHMIPATHY . Facility:[facility] Start: 12-25-2022 End: 12-26-2022 ambulatory NARENDRANATH LAKSHMIPATHY . Facility:[facility] Start: 12-18-2022 End: 12-19-2022 ambulatory NARENDRANATH LAKSHMIPATHY . Facility:[facility] Start: 12-05-2022 End: 01-09-2023 ambulatory CHRISTIE INTERIANO Facility:[facility] Start: 11-26-[address] DOCTOR FERREIRA Facility :[facility] Start: 11-03-2022 End: 11-04-2022 ambulatory Bonita Ena Danielle DO Facility:[facility] Start: 10-17-2022 End: 10-18-[address] DOCTOR FERREIRA Facility:[facility] Start: 10-09-2022 End: 10-10-2022 ambulatory Bnoita Ena Danielle DO Facility:[facility] Start: 10-07-2022 End: 10-08-[address] DOCTOR FERREIRA Facility:[facility] Start: 09-23-2022 End: 09-24-[address] DOCTOR FERREIRA Facility:[facility] Start: 09-11-2022 End: 09-12-2022 ambulatory Bonita Ena Danielle DO Facility:[facility] Start: 09-07-2022 Office outpatient vi sit 15 minutes Maria Esther Ashby [facility] Start: 09-07-2022 End: 09-07-2022 ambulatory SULKY DRIVER-C Maria Esther Ashby Work Phone: [facility] Work Phone: Start: 09-07-2022 End: 09-07-2022 Departed Referred SULKY DRIVER-C Maria Esther Ashby Work Phone: [facility] [place] Work Phone: Start: 09-02-2022 End: 09-03-[address] JORGE GOFF . Facility: Start: 07-29-2022 End: 07-30-2022 ambulatory Tommy Reis DPM [facility] [facility] Start: 07-03-2022 End: 07-04-2022 ambulatory RAJNI QUICK Facility: Start: 05-06-2022 End: 05-06-2022 ambulatory Maria Esther Isma Other [employer] Other Start: 05-06-2022 Office outpatient vi sit 15 minutes Maria Esther Ashby [facility] Start: 04-19-2022 End: 04-19-2022 ambulatory Janet Acevedo Other [employer] Other Start: 04-19-2022 Office outpatient vi sit 15 minutes Janet Acevedo [facility] Start: 02-03-2022 End: 02-05-2022 Evaluation and management of inpatient SHAIKH Marcus VALDES Facility:H1 Procedures Date Procedure Procedure Detail Performing Clinician Start: 01-17-2025 Urine culture Shu haque [employer] Work Phone: Start: 07-31-2024 Blood occult peroxid ase actv qual feces 1 sean Lundberg [employer] Work Phone: Start: 07-22-2024 Urine culture Ciera ladd [employer] Work Phone: Start: 07-07-2024 Urnls dip stick/tabl et rgnt auto w/o microscopy Patrice G Tesmond DO Work Phone: Start: 06-03-2024 URINARY TRACT INFECT ION (HTRX) Mateo Martinez [employer] Work Phone: Start: 06-03-2024 Urnls dip stick/tabl et rgnt auto w/o microscopy Mateo Martinez [employer] Work Phone: Start: 12-17-2023 Alanine aminotransfe rase [Enzymatic activity/volume] in Serum or Plasma MAHAMED MARCK Start: 12-17-2023 Aspartate aminotrans ferase [Enzymatic activity/volume] in Serum or Plasma MAHAMED MARCK Start: 12-17-2023 Lipid panel MAHAMED GLADYS BAUMANDON [...] right coronary artery (RCA) stent placement Mahamed Dukesdon DO Work Phone: Start: 04-29-2023 CL LHC [...] CHRISTIE INTERIANO Start: 01-22-2022 Colonoscopy Mateo arauz [employer] Work Phone: Start: 01-22-2022 Colonoscopy CHLOÉ WONG [...] S/P right coronary artery (RCA) stent placement Bonita Santos Work Phone: History of placement of [...] 01-23-2032 Screening for malignant neoplasm of colon [facility] Start: 07-31-2025 Screening for malignant neoplasm of colon FOBT [facility] Start: 06-22-2025 End: 06-22-2025 Patient encounter procedure 06/22/2025 10:20 AM EDT Office Visit [facility] [address] [facility] [address] [place] [address] Mahamed Acharya DO [address] [facility] [address] [place] [address] [facility] Start: 06-17-2025 Urine screening for protein Diabetes: Urine Protein Screening [facility] Start: 05-24-2025 Influenza vaccination [facility] Comment on above: Postponed from 04/24/2024 (Patient Refus ed) Postponed from 04/24 (Patient Refused) Start: 04-20-2025 Glaucoma screening Diabetes: Retinopathy Screening [facility] Start: 01-17-2025 Urine culture [facility] Start: 01-17-2025 Bacteria identified in Urine by Culture Urine Culture [facility] Start: 01-14-2025 Urine screening for protein Diabetes: Urine Protein Screening [facility] Start: 12-14-2024 Urine screening for protein Diabetes: Urine Protein Screening [facility] Start: 09-17-2024 Hemoglobin A1c measurement Diabetes: Hemoglobin A1C [facility] Start: 08-25-2024 End: 08-25-2024 Patient encounter procedure [facility] Comment on above: Arrived Start: 07-28-2024 End: 09-28-2025 DBT Breast - bilateral screening Bilateral screening mammogram with tomosynthesis Imaging Routine Screening mammogram for breast cancer Expected: 07/28/2024, Expires: 09/28/2025 [facility] Comment on above: Expected: 07/28/2024, Expires: Start: 07-28-2024 End: 07-28-2025 Lipid 1996 panel - Serum or Plasma Lipid panel Lab Routine Mixed hyperlipidemia (CMS/HCC) Expected: 07/28/2024 (Approximate), Expires: 07/28/2025 [facility] Work Phone: Comment on above: Expected: 07/28/2024 (Approximate), Expi res: 07/28/2025 Start: 07-28-2024 End: 07-28-2024 Patient encounter procedure [facility] Comment on above: Arrived Start: 06-22-2024 End: 06-22-2025 Alanine aminotransferase [Enzymatic activity/volume] in Serum or Plasma by With P-5'-P Alanine Aminotransferase Lab Routine Coronary artery disease involving kiana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kiana heart without angina pectoris S/P right coronary artery (RCA) stent placement Mixed hyperlipidemia Expected: 06/22/2024, Expires: 06/22/2025 [facility] Work Phone: Comment on above: Expected: 06/22/2024, Expires: Start: 06-22-2024 End: 06-22-2025 Aspartate aminotransferase [Enzymatic activity/volume] in Serum or Plasma by With P-5'-P Aspartate Aminotransferase Lab Routine Coronary artery disease involving kiana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kiana heart without angina pectoris S/P right coronary artery (RCA) stent placement Mixed hyperlipidemia Expected: 06/22/2024, Expires: 06/22/2025 [facility] Work Phone: Comment on above: Expected: 06/22/2024, Expires: Start: 06-22-2024 End: 06-22-2025 C reactive protein [Mass/volume] in Serum or Plasma by High sensitivity method C-Reactive Protein, High Sensitivity Lab Routine Coronary artery disease involving kiana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kiana heart without angina pectoris S/P right coronary artery (RCA) stent placement Primary hypertension Expected: 06/22/2024, Expires: 06/22/2025 [facility] Work Phone: Comment on above: Expected: 06/22/2024, Expires: Start: 06-22-2024 End: 06-22-2025 Lipid 1996 panel - Serum or Plasma Lipid Panel Lab Routine Coronary artery disease involving kiana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kiana heart without angina pectoris S/P right coronary artery (RCA) stent placement Mixed hyperlipidemia Expected: 06/22/2024, Expires: 06/22/2025 [facility] Work Phone: Comment on above: Expected: 06/22/2024, Expires: Start: 06-22-2024 End: 06-22-2024 Patient encounter procedure 06/22/2024 9:40 AM EDT Office Visit [facility] [address] [place] [address] Mahamed Acharya DO [address] [facility] [address] [place] [address] [facility] Start: 06-17-2024 End: 06-17-2025 CBC W Auto Differential panel - Blood CBC and differential Lab Routine Iron deficiency anemia, unspecified iron deficiency anemia type Expected: 06/17/2024 (Approximate), Expires: 06/17/2025 [facility] Comment on above: Expected: 06/17/2024 (Approximate), Expi res: 06/17/2025 Start: 06-17-2024 End: 06-17-2025 Comprehensive metabolic 2000 panel - Serum or Plasma Comprehensive metabolic panel Lab Routine Primary hypertension (CMS/HCC) 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) Expected: 06/17/2024 (Approximate), Expires: 06/17/2025 [facility] Comment on above: Expected: 06/17/2024 (Approximate), Expi res: 06/17/2025 Start: 06-17-2024 End: 06-17-2025 Hemoglobin A1c/Hemoglobin.total in Blood Hemoglobin A1c Lab Routine 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) Expected: 06/17/2024 (Approximate), Expires: 06/17/2025 [facility] Work Phone: Comment on above: Expected: 06/17/2024 (Approximate), Expi res: 06/17/2025 Start: 06-17-2024 End: 06-17-2025 Iron + transferrin + TIBC Iron + transferrin + TIBC Lab Routine Iron deficiency anemia, unspecified iron deficiency anemia type Expected: 06/17/2024 (Approximate), Expires: 06/17/2025 [facility] Comment on above: Expected: 06/17/2024 (Approximate), Expi res: 06/17/2025 Start: 06-17-2024 End: 06-17-2024 Patient encounter procedure 06/17/2024 9:00 AM EDT Office Visit [facility] [address] [place] [id number] Zahira Lundberg NP [address], [place] [id number] [facility] Start: 04-24-2024 COVID-19 Vaccine () COVID-[address] () [facility] Start: 04-24-[address] [facility] Start: 03-15-2024 Hemoglobin A1c measurement Diabetes: Hemoglobin A1C [facility] Start: 12-17-2023 End: 12-16-2024 Alanine aminotransferase [Enzymatic activity/volume] in Serum or Plasma by With P-5'-P Alanine Aminotransferase Lab Routine Mixed hyperlipidemia Expected: 12/17/2023 (Approximate), Expires: 12/16/2024 [facility] Work Phone: Comment on above: Expected: 12/17/2023 (Approximate), Expi res: 12/16/2024 Start: 12-17-2023 End: 12-16-2024 Aspartate aminotransferase [Enzymatic activity/volume] in Serum or Plasma by With P-5'-P Aspartate Aminotransferase Lab Routine Mixed hyperlipidemia Expected: 12/17/2023 (Approximate), Expires: 12/16/2024 [facility] Work Phone: Comment on above: Expected: 12/17/2023 (Approximate), Expi res: 12/16/2024 Start: 12-17-2023 End: 12-16-2024 Lipid 1996 panel - Serum or Plasma Lipid Panel Lab Routine Mixed hyperlipidemia Expected: 12/17/2023 (Approximate), Expires: 12/16/2024 [facility] Service [facility] Work Phone: Comment on above: Expected: 12/17/2023 (Approximate), Expi res: 12/16/2024 Start: 12-17-2023 FUV, Provider: Mahamed Acharya, Status: Sony, Time: 10:30 AM FUV, Provider: Mahamed Acharya, Status: Sony, Time: 10:30 AM -[facility] [address] DO Work Phone: Start: 07-02-2023 Bacteria identified in Urine by Culture [facility] Start: 05-08-2023 Blood chemistry [facility] Start: 05-08-2023 [facility] Start: 05-07-2023 Blood chemistry [facility] Start: 05-07-2023 [facility] Start: 05-06-2023 Blood chemistry [facility] Start: 05-06-2023 [facility] Start: 05-05-2023 Blood chemistry [facility] Start: 05-05-2023 [facility] Start: 05-04-2023 Blood chemistry [facility] Start: 05-04-2023 [facility] Start: 05-03-2023 Blood chemistry [facility] Start: 05-03-2023 [facility] Start: 05-02-2023 Blood chemistry [facility] Start: 05-02-2023 [facility] Start: 05-01-2023 [facility] chemistry [facility] Start: 05-01-2023 [facility] Start: 04-30-2023 Blood chemistry [facility] Start: 04-30-2023 End: 04-30-2023 [facility] Start: 04-29-2023 Dilation of Coronary Artery, One Artery with Drug-eluting Intraluminal Device, Percutaneous Approach Dilation of Coronary Artery, One Artery with Drug-eluting Intraluminal Device, Percutaneous Approach [facility] Start: 04-29-2023 Fluoroscopy of Left Heart using Low Osmolar Contrast Fluoroscopy of Left Heart using Low Osmolar Contrast [facility] Start: 04-29-2023 Fluoroscopy of Multiple Coronary Arteries using Low Osmolar Contrast Fluoroscopy of Multiple Coronary Arteries using Low Osmolar Contrast [facility] Start: 04-29-2023 Measurement of Cardiac Sampling and Pressure, Left Heart, Percutaneous Approach Measurement of Cardiac Sampling and Pressure, Left Heart, Percutaneous Approach [facility] Start: 04-29-2023 Blood chemistry [facility] Start: 04-29-2023 End: 04-29-2023 [facility] Start: 04-28-2023 End: 04-29-2023 [facility] Start: 04-28-2023 Hospital admission [facility] Start: 04-28-2023 Referral to flight nurse [facility] Start: 04-28-2023 Bacteria identified in Urine by Culture [facility] Start: 04-24-2023 COVID-19 Vaccine ( season) COVID-19 Vacc[address] () [facility] Start: 04-24-2023 Influenza vaccination INFLUENZA (#1) [facility] Start: 03-18-2023 Screening for malignant neoplasm of cervix [facility] Start: 03-06-2023 Bacteria identified in Urine by Culture Urine Culture [facility] Start: 09-07-2022 Bacteria identified in Urine by Culture Urine Culture [facility] Start: 08-24-2022 DEPRESSION ASSESSMENT DEPRESSION ASSESSMENT [facility] Start: 04-04-2022 Screening for malignant neoplasm of colon FIT-DNA [facility] Start: 03-21-2022 Screening for malignant neoplasm of breast Mammogram [facility] Start: 2019 RSV High Risk: (Elderly (60+) or Population) (1 - Risk 60-74 years 1-dose series) RSV High Risk: (Elderly (60+) or Population) (1 - Risk 60-74 years 1-dose series) [facility] Start: 2019 RSV patients and/or patients aged 60+ years (1 - 1-dose 60+ series) RSV patients and/or patients aged 60+ years (1 - 1-dose 60+ series) [facility] Start: 08-08-2018 DIABETES SCREEN DIABETES SCREEN [facility] Start: 05-14-2015 MMR Vaccines (1 of 1 - Standard series) MMR Vaccines (1 of 1 - Standard series) [facility] Start: 01-17-2014 SHINGRIX VACCINE (2 of 3) SHINGRIX VACCINE (2 of 3) [facility] Start: 12-28-2004 COLOGUARD (FIT-DNA) COLOGUARD (FIT-DNA) [facility] Start: 12-28-2004 Colonoscopy COLONOSCOPY [facility] Start: 12-28-2004 COLORECTAL CANCER SCREENING COLORECTAL CANCER SCREENING [facility] Start: 12-28-[address] COLONOGRAPHY [facility] Start: 12-28-2004 FECAL OCCULT BLOOD FECAL OCCULT BLOOD [facility] Start: 12-28-2004 LIPID SCREEN LIPID SCREEN [facility] Start: 12-28-2004 SIGMOIDOSCOPY SIGMOIDOSCOPY [facility] Start: 1999 Mammography MAMMOGRAM [facility] Start: 12-28-1989 HPV TESTING HPV TESTING [facility] Start: 12-28-1981 DTaP/Tdap/Td Vaccines (1 - Tdap) DTaP/Tdap/Td Vaccines (1 - Tdap) [facility] Start: 12-28-1980 PAP TESTING PAP TESTING [facility] Start: 12-28-1980 Screening for malignant neoplasm of cervix [facility] Start: 12-28-1978 Hepatitis A Vaccines (1 of 2 - Risk 2-dose series) Hepatitis A Vaccines (1 of 2 - Risk 2-dose series) [facility] Start: 12-28-1978 Urine microalbumin profile DTAP,TDAP,TD (1 - Tdap) [facility] Start: 12-28-1977 HEPATITIS C SCREENING HEPATITIS C SCREENING [facility] Start: 12-28-1977 Hepatitis C screening Hepatitis C Screening [facility] Start: 12-28-1977 HIV SCREENING HIV SCREENING [facility] Start: 12-28-1969 Diabetic foot examination Diabetes: Foot Exam [facility] Start: 12-28-1969 Glaucoma screening Diabetes: Retinopathy Screening [facility] Start: 12-28-1965 Pneumococcal Vaccine: 65+ Years (1 of 2 - PCV) Pneumococcal Vaccine: 65+ Years (1 of 2 - PCV) [facility] Start: 12-28-1965 Pneumococcal Vaccine: Pediatrics (0 to 5 Years) and At-Risk Patients (6 to 64 Years) (1 of 2 - PCV) Pneumococcal Vaccine: Pediatrics (0 to 5 Years) and At-Risk Patients (6 to 64 Years) (1 of 2 - PCV) [facility] Start: 06-30-1960 COVID-19 VACCINE (#1) COVID-19 VACCINE (#1) [facility] Start: 1959 Hemoglobin A1c measurement Diabetes: Hemoglobin A1C [facility] Start: 1959 HIV screening HIV Screening [facility] Start: 1959 Lipid panel Lipid Panel [facility] Start: 1959 Screening for malignant neoplasm of colon [facility] Start: 1959 Yearly Adult Physical Yearly Adult Physical [facility] Anion gap measurement [facility] Basophils [#/volume] in Blood by Automated count [facility] Basophils/100 leukoc ytes in Blood by Automated count [facility] Calculated LDL cholesterol level [facility] Cholesterol.total/Ch olest trace in HDL [Mass Ratio] in Serum or Plasma [facility] Comprehensive metabo lic 2000 panel - Serum or Plasma [facility] Eosinophils [#/volum e] in Blood [facility] Eosinophils/100 leukocytes in Blood by Automated count [facility] Erythrocyte distribu tion width [Ratio] by Automated count [facility] Erythrocytes [#/volu me] in Blood [facility] Glucose measurement estimated from glycated hemoglobin [facility] Hematocrit [Volume Fraction] of Blood [facility] Hemoglobin [Mass/vol ume] in Blood [facility] Leukocytes [#/volume ] corrected for nucleated erythrocytes in Blood by Automated coun [facility] Leukocytes [#/volume ] in Blood [facility] Lymphocytes [#/volum e] in Blood by Automated count [facility] Lymphocytes/100 leukocytes in Blood by Automated count [facility] MCH [Entitic mass] b y Automated count [facility] MCHC [Mass/volume] b y Automated count [facility] MCV [Entitic volume] by Automated count [facility] Monocytes [#/volume] in Blood by Automated count [facility] Monocytes/100 leukoc ytes in Blood by Automated count [facility] Neutrophils [#/volum e] in Blood by Automated count [facility] Neutrophils/100 leukocytes in Blood by Automated count [facility] Nucleated erythrocyt es [Presence] in Blood by Automated count [facility] Patient Education [facility] Work Phone: Patient referral [facility] Work Phone: Platelet mean volume [Entitic volume] in Blood by Automated count [facility] Platelets [#/volume] in Blood [facility] VLDL cholesterol measurement [facility] XR Cervical spine 5 Views [facility] Immunizations Immunization Date Immunization Notes Care Provider Carri field 12-13-2021 Pfizer Palomo Cap SARS-CoV-2 Mahamed Acharya DO Work Phone: [facility] Work Phone: 12-13-2021 SARS-CoV-2 mRNA (lttmpcsngqz-irck-vbr edel) vaccine Joe CARTAGENA [facility] 12-13-2021 SARS-CoV-2, Unspecified Zahira [employer]osteve [employer] Work Phone: [facility] 01-05-2021 zoster vaccine recombinant Mahamed Acharya DO Work Phone: [facility] Work Phone: 11-20-2020 SARS-CoV-2 (COVID-19 ) mRNA BNT-[id number] vax Joe CARTAGENA [facility] 10-30-2020 SARS-CoV-2 (COVID-19 ) mRNA BNT-162g1 vax Joe CARTAGENA [facility] 10-06-2020 zoster vaccine recombinant Mahamed Acharya DO Work Phone: [facility] Work Phone: 07-28-2019 Seasonal, quadrivalent, recombinant, injectable influenza vaccine, preservative free Mahamed Acharya DO Work Phone: [facility] Work Phone: 07-28-2019 influenza virus vaccine, unspecified formulation Mahamed Acharya DO Work Phone: [facility] 04-16-2015 zoster vaccine, live Mahamed Acharya DO Work Phone: [facility] Work Phone: 11-22-2013 zoster vaccine, live Jose Eduardo nunez MD Work Phone: [facility] Work Phone: NEGATED: Highlighted row has not occurred!11-24-2023 influenza virus vaccine, unspecified formulation CHLOÉ PIZANO [facility] Payers Date Payer Category Payer Private Health Insurance [id number] 2024 Self-pay [id number] 2022 Managed Care (Private) [facility] [id number]. [id number] 2022 Private Health Insurance [id number] .[id number]. [id number] 2021 Unknown [id number] 2014 Unknown 1959 Unknown [id number] 2.16840.1.034240.3.579.2. 196 1959 Unknown [id number] 2.840.1.042108.3.579.2. 196 1959 Unknown [id number] 2.840.1.469186.3.579.2. 196 1959 Unknown [id number] 2.16.840.1.445080.3.579.2. 196 1959 Unknown [id number] 2.16.840.1.589092.3.579.2. 196 1959 Unknown [id number] 2.16.840.1.997135.3.579.2. 59 1959 Unknown [id number] 2.16840.1.448669.3.579.2. 59 1959 Unknown [id number] 2.16.840.1.296889.3.579.2. 593 1959 Unknown [id number] 2.16.840.1.730853.3.579.2. 593 1959 Unknown [id number] 2.16.840.1.891795.3.579.2. 593 1959 Unknown [id number] 2.16.840.1.577139.3.579.2. 593 1959 Unknown [id number] 2.16.840.1.310461.3.579.2. 593 1959 Unknown [id number] 2.16.840.1.410993.3.579.2. 593 1959 Unknown [id number] 2.16.840.1.835280.3.579.2. 593 1959 Unknown [id number] 2.16.840.1.312832.3.579.2. 593 1959 Unknown [id number] 2.16.840.1.512263.3.579.2. 593 1959 Unknown [id number] 2.16.840.1.428098.3.579.2. 356 1959 Unknown [id number] 2.16.840.1.587601.3.579.2. 356 1959 Unknown [id number] 2.16.840.1.630073.3.579.2. 356 1959 Unknown [id number] 2.16.840.1.600881.3.579.2. 356 1959 Unknown [id number] 2.16.840.1.553590.3.579.2. 356 1959 Unknown [id number] 2.16.840.1.578016.3.579.2. 1244 1959 Unknown [id number] 2.16.840.1.849370.3.579.2. 1244 1959 Unknown [id number] 2.16.840.1.759615.3.579.2. 1258 1959 Unknown [id number] 2.16.840.1.061721.3.579.2. 1258 1959 Unknown [id number] 2.16.840.1.730293.3.579.2. 1258 1959 Unknown [id number] 2.16.840.1.159832.3.579.2. 1258 1959 Unknown [id number] 2.16.840.1.770533.3.579.2. 1258 1959 Unknown [id number] 2.16.840.1.616346.3.579.2. 1258 1959 Unknown [id number] 2.16.840.1.674520.3.579.2. 1258 1959 Unknown [id number] 2.16.840.1.217116.3.579.2. 1258 1959 Unknown [id number] 2.16.840.1.199049.3.579.2. 1258 1959 Unknown [id number] 2.16.840.1.762363.3.579.2. 1959 Unknown [id number] 2.16.840.1.929920.3.579.2. 1959 Unknown [id number] 2.16.840.1.591916.3.579.2. 1959 Unknown [id number] 2.16.840.1.501496.3.579.2. 1959 Unknown [id number] 2.16.840.1.715330.3.579.2. 1959 Unknown [id number] 2.16.840.1.569629.3.579.2. 1959 Unknown [id number] 2.16.840.1.712801.3.579.2. 1959 Unknown [id number] 2.16.840.1.583496.3.579.2. 727 1959 Unknown [id number] 2.16.840.1.415928.19 1959 Unknown [id number] 2..840.1.920717.19 Unknown [employer] [id number] Unknown [id number] 2.16.840.1.600599.3.579.2. 531 Unknown [id number] 2.16.840.1.817332.3.579.2. 531 Social History Date Type Detail Facility Start: 09-30-2023 End: 08-25-2024 Sex Assigned At [facility] Start: 1960 Sex Assigned At Female F [facility] Start: 04-29-2023 End: 09-30-2023 Tobacco smoking status NHIS Ex-smoker (finding) [facility] Start: 01-08-2015 End: 06-17-2024 Tobacco smoking status NHIS Smokes tobacco daily [facility] History of tobacco use [facility] Start: 01-08-2015 End: 08-25-2024 Cigarettes smoked current (pack per day) - Reported 1 [facility] Comment on above: Coffee 1-2 daily Pop 2 cans daily Tea 1-2 weekly; February 28, 2023 - 1ppd; Start: 04-10-2022 Alcohol intake Current non-dr feeder catcher of alcohol (finding) [facility] Start: 1960 Sex Assigned At Not on file C [facility] Start: 07-02-2023 End: 07-02-2023 Tobacco smoking status NHIS Never smoked tobacco (finding) [facility] Start: 11-24-2023 End: 09-20-2024 Tobacco smoking status Heavy tobacco smoker (finding) [facility] Start: 01-17-2025 History of tobacco use [facility] [facility] Work Phone: Start: 12-17-2023 End: 06-22-2024 Alcoholic beverage intake Current drinker of alcohol (finding) [facility] Work Phone: Start: 09-30-2023 Alcohol Comment rarely [facility] Work Phone: Start: 12-07-2023 End: 06-22-2024 Exposure to SARS-CoV-2 (event) Not sure [facility] Start: 01-15-2024 End: 06-17-2024 Tobacco use and exposure Smokeless tobacco non-user [facility] Start: 01-15-2024 End: 08-25-2024 Alcoholic beverage intake Lifetime non-drinker (finding) [facility] Start: 01-15-2024 Alcohol Comment caffeine: 1/2 cups per day [facility] Start: 11-05-2022 Gender identity Identifies as female gender (finding) [facility] Start: 06-17-2024 Alcohol Comment caffeine: 1/2 cup per day [facility] Tobacco smoking status Never [facility] Start: 10-04-2024 End: 01-27-2025 Sex Female (finding) [facility] Medical Equipment Procedure Code Equipment Code Equipment [...] 09-20-2024 Functional Status N/A [facility] 2023 Functional Status N/A [facility] 11-24-2023 Functional Status N/A [facility] 04-30-2023 Functional status Patient at Baseline [facility] Work Phone: Mental Status Date Assessment Result Facility 04-30-2023 Cognitive function Cognitive Sta tus Patient at Baseline [facility] Work Phone: Clinical Notes 02-03-2022 to 01-17-2025 Note Date & Type Note Facility 01-17-2025 Evaluation note Diagnosis Onset Date Resolution Acute UTI acute January 17, 2025 4:00pm [facility] Work Phone: 1(249) 772-348005-27-2025 Evaluation note* Diagnosis Onset Date Resolution Status Admit Date Acute UTI acute January 17, 2025 4:00pm CAD (coronary artery disease) acute January 27, 2025 1:24pm Cervical radiculopathy acute 2024 1:24pm 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 acute January 27, 2025 1 :24pm High cholesterol acute January 1:24pm Type 2 diabetes mellitus wit h hyperglycemia acute January 27, 2025 1 :24pm Type 2 diabetes mellitus wit h other circulatory complications acute January 27, 2025 1:24pm Type 2 diabetes mellitus wit h other specified complication acute Jan 1:24pm [facility] Work Phone: 1(248) 742-874101-28-2025 Hospital Discharge instructions Patient Education 09/20/2024 13:31:07 [...] your health care provider. General instructions Take sfxq-oky-seyqogf and prescription medicines only as told by [...] provider. Document Revised: 04/29/2021 Document Reviewed: 04/29/2021 [employer] Patient Education 2023 CytoPherx. Follow Up Care 09/19/2024 13:16:54 With:CHLOÉ PIZANO PA-C, URL Address: [address] [place] [address] When:Within 1 Month(s) [facility] [place] 01-28-2025 NotePatient Education Obstetrics and Gynecology Overactive Bladder, Adult [...] health care provider. General instructions ??? Take dlig-fxz-qxuwwhg and prescription medicines only as told by your health care provider. ??? If you were prescribed an antibiotic medicine, take it as told by your health care provider. Donot stop taking the antibiotic even if you start to feel better. ??? Use any implants or pessary as told by your health care provider. ??? If needed, wear pads to absorb urine leakage. ??? Keep a log to track how much and when you drink, and whe (more content not included)...[facility]01-02-2025 History of Present illness Narrative* Dominic Ballard, BURAK - 08/25/2024 10:30 AM EST Images from the original note were not included. Brenda Segura is a 63 y.o. female presents with chief complaint of Follow-up HPI: HPI Patient presents today for a follow up on medication. She states she still hasn't gotten the zoloftyet, but did find out she owes them [...] daily with meals, Hold until 05/02/23 per [facility] metoprolol tartrate (LOPRESSOR) 50 mg, Oral, 2 [...] all orders for this visit: Primary hypertension ([facility]) Discussed current management plan. Goal BP less then 130/80. Discussed heart healthy diet, increasefruits and vegetables, limit salt intake. Encouraged increase [...] diabetes mellitus with other diabetic kidney complication ([facility]) Diabetic protocols reviewed. Discussed and updated current management plan. Addressed barriers to care, diet, exercise plan and blood sugar testing. Education provided for medications. Goal A1C <7and BP <130/80 for suboptimally controlled diabetes. I have encouraged patient to check feet regularly and to see ophthomololgist annually. I have discussed the need for regular testing and followup. We will recheck an A1C every 3 months and microalbumin yearly. Discussed complications which could include blindness, heart disease and kidney disease. ALDAIR (generalized anxiety disorder) ([facility]) She has not gotten the increased dose of zoloft yet. She did find out that she had a bill with the pharmacy and that is why it wasn't sent. She reports that they are sending it now that she has paid her bill. She will follow up 1 month after starting the increased dose. Type 2 diabetes mellitus with diabetic cataract ([facility]) documented in this encounterParkland Health [id number] History of Present illness Narrative* Dominic Ballard NP - 07/28/2024 10:30 AM EST Images from the original note were not included. Brenda Segura is a 63 y.o. female presents with chief complaint of Follow-up HPI: HPI Patient presents today for 6 week follow up on anxiety/depression. Pt states she is doing okay. Shenever did get the zoloft script, so she has just been taking the 25 mg, she states it was suppose to be mailed to her through [employer] mail order, she has had this script [...] daily with meals, Hold until 05/02/23 per [facility] metoprolol tartrate (LOPRESSOR) 50 mg, Oral, 2 [...] major depressive disorder, in partial remission (HCC) ([facility]) Comments: improved with sertraline Orders: - sertraline (Zoloft) 25 MG tablet; Take 2 tablets (50 mg) by mouth Daily Since she never got the 50 mg dose after last visit, will send the increased dose of 50 mg to [facility] again and she should contact us in 2 weeks if she has not had this in the past. Screening mammogram for breast cancer - Bilateral screening mammogram with tomosynthesis; Future ALDAIR (generalized anxiety disorder) ([facility]) Iron deficiency anemia, unspecified iron deficiency anemia type Will obtain urine and stool card as ordered by Zahira at last visit. documented in this encounterParkland Health [id number] Evaluation note* Diagnosis Onset Date Resolution Status Admit Date Dysuria acute July 22, 2024 4:23pm CAD (coronary artery disease) acute October 04, 2024 8:48am High cholesterol acute October 04, 2024 8:48am Pain in both upper extremities acute October 04, 2024 8:48am Type 2 diabetes mellitus wit h hyperglycemia acute October 04, 2 025 8:48am Wellness examination acute 2024 8:48am [facility] Work Phone: 1(922) 812-846411-14-2024 History of Present illness Narrative* Xiao Mascorro NP - 07/07/2024 2:20 PM EST HPI: Historian [...] Protein: Trace PH: 6.0 Blood: Negative Specific Smoot: 1.030 Ketone: Negative Glucose: Negative Neg Neg [...] 6 tablet; Refill: 0 documented in this encounterParkland Health CenterAychkvtvrx74-36-6910 History of Present illness Narrative* Mahamed Acharya, - 06/22/2024 9:40 AM EDT Subjective Brenda Segura is a 63 y.o. female Chief Complaint Follow-up 63-year-old female returns for 6-month follow-up and is doing well she denies any cardiovascular events or complaints or nitrate usage or hospitalizations. She is performing all her work-related activities at [employer] and at home and daily chores without [...] Rfl: Assessment/Plan 1. Coronary artery disease involving kiana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kiana heart without angina pectorisFollow Up In Cardiology 2. S/P right coronary artery (RCA) stent placement 3. Primary hypertension 4. Mixed hyperlipidemia 5. Type 2 diabetes mellitus with other diabetic kidney complication 6. BMI 23.0-23.9, adult 7. Smoker 8. Old [place] (myocardial infarction) Scribe Attestation By signing my name below, I, Gisel Fitzpatrick LPN , Scribe attest that this documentation has been prepared [...] exam, discussion and plan. documented in this encounterSt. [facility]'s [facility] Work Phone: 1(369) 895-404210-30-2024 Instructions* Patient Instructions* Gisel Choudhary LPN - [...] time of your visit. documented in this encounterSt. Mary's Medical Center Work Phone: 1(964) 257-728010-25-2024 History of Present illness Narrative* Zahira Walteralfreditosteve, [employer]LECT[employer]AN [employer]SEMBLER - 06/17/2024 9:00 AM EDT Images from the original note were not included. Brenda Segura is a 63 y.o. female presents with chief complaint of Annual Exam HPI: HPI Patient needs refill on all medication sent to [employer] mail service. Does not check blood sugars [...] daily with meals, Hold until 05/02/23 per [facility] metoprolol tartrate (LOPRESSOR) 50 mg, 2 times [...] hyperlipidemia (CMS/HCC) -On a statin Primary hypertension (CMS/HCC) - Comprehensive metabolic panel; Future - metoprolol [...] diabetes mellitus with other diabetic kidney complication ([facility]) - Hemoglobin A1c; Future - Comprehensive metabolic panel; Future - metFORMIN (Glucophage) 850 MG tablet; Take 1 tablet (850 mg) by mouth in the morning and 1 tablet(850 mg) in the evening. Take with meals. Hold until 05/02/23 per [facility]. - glimepiride (Amaryl) 4 MG tablet; Take [...] major depressive disorder, in partial remission (HCC) ([facility]) Orders: - sertraline (Zoloft) 25 MG tablet; Take 2 tablets (50 mg) by mouth Daily -Increase sertraline to 50mg daily. Reviewed importance of healthy diet and exercise, stress management, and social support. Type 2 diabetes mellitus with hyperglycemia, without long-term current use of insulin ([facility]) - pioglitazone (Actos) 30 MG tablet; Take 1 tablet (30 mg) by mouth in the morning. 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) Orders: - Hemoglobin A1c; Future - Comprehensive metabolic panel; Future - metFORMIN (Glucophage) 850 MG tablet; Take 1 tablet (850 mg) by mouth in the morning and 1 tablet(850 mg) in the evening. Take with meals. - glimepiride (Amaryl) 4 MG tablet; Take 1 tablet (4 mg) by mouth in the morning. Take before meals. Primary hypertension (CMS/HCC) Orders: - Comprehensive metabolic panel; Future - metoprolol tartrate (Lopressor) 50 MG tablet; Take 1 tablet (50 mg) by mouth in the morning and 1tablet (50 mg) before bedtime. - lisinopril 10 MG tablet; Take 1 tablet (10 mg) by mouth Daily documented in this encounterParkland Health [id number] History of Present illness Narrative* Mateo Martinez NP - 06/03/2024 3:25 PM EDT HPI: [...] Protein: Trace PH: 6.5 Blood: Negative Specific Smoot: 1.020 Ketone: Negative Glucose: Negative Neg Neg [...] URINARY TRACT INFECTION (HTRX) documented in this encounterParkland Health CenterLmezygfigr63-07-2504 Hospital Discharge instructions Patient Education 05/02/2024 08:27:27 [...] reconstructed. Follow these instructions at home: Take emdf-qxy-zktlcmf and prescription medicines only as told by [...] provider. Document Revised: 06/04/2023 Document Reviewed: 06/04/2023 [employer] Patient Education 2023 CytoPherx. Follow Up Care 2023 11:25:29 With:MITZI UNGER, Joe Rosen, URL Address: [facility] [address], [place] [address]- When: Unknown [facility] 09-09-2024 NotePatient Education Urology Urethral Stricture Urethral [...] Follow these instructions at home: ? Take pqpi-hcy-iazlycx and prescription medicines only as told by [...] provider. Document Revised: 06/04/2023 Document Reviewed: 06/04/2023 [employer] Patient Education ? [address] 2023 Hospital Discharge instructions Patient Education 2023 [...] Up Care 12/02/2023 10:52:42 With:Joe CARTAGENA Address: [address] [place] [address] [place] [address] Business (1) When:04/30/2024 11:22:46 [facility]05-07-2024 Note [id number] [facility] 2023 NoteCustom Cystoscopy with Urethral Dilation ? [...] if you have a fever over 100 degreesFisher [facility]04-25-2024 History of Present illness Narrative* Mahamed Acharya, DO - 12/17/2023 10:30 AM EDT Subjective Brenda [...] Rfl: Assessment/Plan 1. Coronary artery disease involving kiana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kiana heart without angina pectoris 2. Primary hypertension 3. Mixed hyperlipidemia 4. S/P right coronary artery (RCA) stent placement 5. Type 2 diabetes mellitus with other diabetic kidney complication (Multi) 6. [place] (myocardial infarction) 7. BMI 23.0-23.9, adult 8. Former smoker Scribe Attestation By signing my name below, Kellen Marcus Gregoria CORONA , Scribe attest that this documentation has been prepared [...] exam, discussion and plan. documented in this encounterSt. Mary's Medical Center Work Phone: 1(868) 277-292204-25-2024 Instructions* Patient Instructions* Kellen Treviño LPN - [...] to Increase physical activity. documented in this encounterSt. Mary's Medical Center Work Phone: 1(797) 881-926004-02-2024 Hospital Discharge instructions Patient Education 11/24/2023 10:26:34 [...] your health care provider. General instructions Take nkfx-rbd-bymgtrx and prescription medicines only as told by [...] provider. Document Revised: 04/29/2021 Document Reviewed: 04/29/2021 [employer] Patient Education 2022 CytoPherx. Follow Up Care 08/14/2023 14:19:20 With:JERICA MOREIRA, CHLOÉ Anne, URL Address: [address] [facility] [place] [address] When: Unknown [facility] 04-02-2024 NoteChief Complaint Referral for recurrent UTI [...] f/u w me 6 wks later in [place] Ordered: E&M of New Patient Moderate 45-59 Min 81533 2. Vaginal dryness (N89.8: Other specified noninflammatory [...] E&M of New Patient Moderate 45-59 Min 51716 3. Mixed incontinence urge and stress (N39.46: Mixed incontinence) c/o severe urgency, frequency, UUI at least once per day, also some JEAN PIERRE -Leaking w/coughing. BBSQ 22 Does drink coffee, tea & soda. Discussed reduction of bladder irritants. Pt education provided. -Will readdress after Cysto/UD if sx do not improve. Ordered: E&M of New Patient Moderate 45-59 Min 83592 4. Diabetes (E11.9: Type 2 diabetes mellitus without complications) A1C 09/15/23- 6.3 Metformin 850mg BID therapy. well controlled, likely not contributing to urinary sx. Ordered: E&M of New Patient Moderate 45-59 Min 54058 Orders: estradiol topical, See Instructions, 42.5 gm, Refill(s) 0, Apply pea sized amount vaginally rdcuarhj9aen, then 3x/wk there after., [id number], 170, cm, 11/24/23 9:34:00 EDT, Height/Length Dosing, 66, kg, 11/24/23 9:34:00 EDT, Weight Dosing 36879 Measure Post Void residual urine and/or bladder [...] Recent) 3074F Urnls Di (more content not included)...[facility]S Medical CenterComment on above:Result Comment: Electronically Signed By: CHLOÉ PIZANO PA-C\.br\Date and Time Signed: 11/23/2410:25 EDT\.br\Electronically Co-Signed By: Danuta Rodriguez MA\.br\Date and Time Co-Signed: 11/24/23 10:46 [id number] Evaluation note* Encounter Date Diagnosis Assessment Notes [...] understanding and is agreeable to treatment plan. [employer] Other 09-07-2023 Hospital Discharge instructions Additional Instructions [...] doctor or pharmacist, without first calling the flight nurse who implanted the stent. If you require [...] weight lifting, stair steppers, etc. until the flight nurse approves these activities. Check with the flight nurse on your first follow-up visit. CALL YOUR PHYSICIAN at [phone]: -If bleeding should occur from the catheter insertion site- apply pressure to the site then immediately call us. -Report any fever, redness, drainage, increased swelling, or firmness at the catheter insertion site. Some bruising or slight swelling may be present at the time of discharge. -Should arm or leg become cold, numb, white, or blue, contact the flight nurse immediately. -IF you should experience episodes of [...] is recommended. Please call Central Scheduling at [phone] to schedule your appointment.] The attending flight nurse or [facility] nurse clinician should provide you with specific instructions regarding activity, diet, medications, and further follow up for you. Follow the medication instructions provided on your discharge. If the dosages and instructions on this sheet differ from the dosage and instructions on the bottle, follow the instructions on the bottle. [facility] is not responsible for incorrect prescription information provided by the patient during their visit. Do not stop your medications without consulting your health care provider. Please take the list with you to your next doctor's appointment.[facility] Work Phone: 1(158) 292-955509-07-2023 Miscellaneous Notes* Telephone Encounter - Heidi Gretta Glo - 04/30/2023 2:00 PM EDT Pt's insurance is qoo-jv-xfdeabh; created OON referral which requires financial clearance prior to scheduling. * Telephone Encounter - Francie Buenrostro MA - 04/21/2023 9:52 AM EDT Received referral to Cardiology for PSVT and records from [facility]. Sent to scheduling and also sent records of scanning. documented in [facility] encounterPaul[facility] Discharge summary Author Simone Martinez [facility] April 30, 2023 4:08pm Note Date/Time April 30, 2023 9:37am [facility] [address] [place] [address] Discharge Summary Signed Patient: Brenda Segura MR#: [id number] : 1960 Acct:[id number] Age/Sex: 62 / F Adm Date: 3 Loc: Room: [address] [place] [address]: Simone Martinez DO Copies to: DO Bonita Reno DO W Scott Sheldon, DO~ Providers Date of Discharge: 04/30/23 Discharging [...] weeks. She had undergone outpatient work-up and [facility]. She had an episode of chest pain and was on the way to the emergency room here [facility] when an EKG showed ST [...] p CL LHC & COR Angio - Annabel Acharya DO p CL Stent 1st Vessel RCA XAVIER - Annabel Acharya DO Diagnostic Studies Completed and Pending [...] % (Auto) 70.7, Lymph % (Auto) 17.6, Lincoln % (Auto) 9.4, Eos % (Auto) 1.3, Baso % (Auto) 1.0, Nucleat RBC Rel Count 0.1, Neut # (Auto) 6.2, Lymph # (Auto) 1.5, Lincoln # (Auto) 0.8, Eos # (Auto) 0.1, [...] doctor or pharmacist, without first calling the flight nurse who implanted the stent. If you require [...] weight lifting, stair steppers, etc. until the flight nurse approves these activities. Check with the flight nurse on your first follow-up visit. CALL YOUR PHYSICIAN at [phone]: -If bleeding should occur from the catheter insertion site- apply pressure to the site then immediately call us. -Report any fever, redness, drainage, increased swelling, or firmness at the catheter insertion site. Some bruising or slight swelling may be present at the time of discharge. -Should arm or leg become cold, numb, white, or blue, contact the flight nurse immediately. -IF you should experience episodes of [...] is recommended. Please call Central Scheduling at [phone] to schedule your appointment.] The attending flight nurse or [facility] nurse clinician should provide you with specific instructions regarding activity, diet, medications, and further follow up for you. Follow the medication instructions provided on your discharge. If the dosages and instructions on this sheet differ from the dosage and instructions on the bottle, follow the instructions on the bottle. [facility] is not responsible for incorrect [...] signed by Simone Martinez DO> 04/30/23 1608 [facility] Work Phone: 1(369) 431-372709-06-2023 Progress note Author Simone Martinez [facility] April 29, 2023 5:26pm Note Date/Time April 29, 2023 5:17pm [facility] [address] [place] [address] Hospitalist Progress Note Signed Patient: Brenda Segura MR#: [id number] : 1960 Acct:[id number] Age/Sex: 62 / F Adm Date: 3 Loc: Room: [address] [place] [address] Type: ADM IN Attending Dr: Simone Martinez DO Copies to: ~ Date of Service: 04/29/2023 Subjective Subjective Narrative: Patient returns from the [facility] [employer] this afternoon. Diagnosis is that she had [...] she has a fairly active job at [employer]. There is a lot of carrying and [...] H 100 Room Air 04/29/23 17:00 04/29/23 17:04/29/23 17:04/29/23 17:00 04/29/23 17:00 04/29/23 17:00 Narrative: General: [...] Dose Route Start Last Admin Trade Name Freq PRN Reason Stop Dose Admin Acetaminophen 650 [...] To Pharmacy [facility] 04/28/24 09:28 .PHACONSULT PRN ZZ.Pharmacy Consult Protocol Nitrofurantoin Macrocrystals 100 mg 04/29/23 [...] 90 Mg Tablet PO 04/28/24 20:59 BID [facility] A&P - Hospitalist Assessment/Plan (1) Unstable angina: [...] coronary artery. Documented By: Simone Martinez DO 1714 Signed By: <Electronically signed by Simone Martinez DO> 04/29/23 1726 [facility] Work Phone: 1(155) 398-415309-06-2023 Consult note Author Annabel Acharya [facility] April 29, 2023 4:41pm Note Date/Time April 29, 2023 4:41pm [facility] [address] [place] [address] Cardiology Consult Note Signed Patient: Brenda Segura MR#: [id number] : 1960 Acct:[id number] Age/Sex: 62 / F Adm Date: 3 Loc: 4 Room: [address] [place] [address] Type: ADM INOo Attending Dr: Simone Martinez DO Copies to: DO Bonita Reno DO W Scott Sheldon, DO~ Cardiology HPI History of Present Illness Consult Date: 04/29/23 Reason for Consult: Aborted STEMI/ACS HPI: Ms. Segura is a 62 year old female seen in interventional cardiology consultation at the request of Dr. Card ER attending last evening and hospitalist this morning in female patient who presents from [facility] with severe angina rated on a scale of 10 out of 10 initially, improved with aspirin and sublingual nitroglycerin spray in the squad. Initial ECG revealed inferior STEMI injury current however second ECG revealed resolution and upon arrival to the ER complete normalization of the ECG. Notably, patient has been to [place] and [place] ERs in the recent past for chest [...] and no additional complaints, except as documented [facility] Medical History (Updated 04/29/23 @ 16:41 by [...] mg/mL subcutaneous auto-injector ([employer]z Autoinjector) 80 mg [id number] 04/28/23 [History Confirmed 04/28/23] lisinopril 10 mg [...] Lymph # (Auto) 1.4 2.8 (1.00-4.8) x10E3/uL Lincoln # (Auto) 0.8 0.8 (0.0-0.8) x10E3/uL Eos [...] signed by Annabel Acharya DO> 04/29/23 1641 [facility] Work Phone: 1(490) 966-637509-06-2023 Procedure [place] [facility]23 Procedure [facility]09-05-2023 History and physical note Author Olu Hull [facility] April 28, 2023 9:58pm Note Date/Time April 28, 2023 9:58pm [facility] [address] [place] [address] Hospitalist H&P Signed Patient: Brenda Segura MR#: [id number] : 1960 Acct:[id number] Age/Sex: 62 / F Adm Date: 3 Loc: Room: [address] [place] [address] Type: ADM IN Attending Dr: Olu Hull [...] negative unless noted below or in HPI [facility] Medical History (Updated 04/28/23 @ 21:54 by [...] % (Auto) 12.1 % (.) 04/28/23 18:46 Lincoln % (Auto) 7.4 % (.) 04/28/23 18:46 Eos % (Auto) 0.5 % (.) 04/28/23 18:46 Baso % (Auto) 1.5 % (.) 04/28/23 18:46 Nucleat RBC Rel Count 0.0 /100 WBC (0-0.5) 04/28/23 18:46 Neut # (Auto) 9.0 x10E3/uL (1.8-7.7) H 04/28/23 18:46 Lymph # (Auto) 1.4 x10E3/uL (1.00-4.8) 04/28/23 18:46 Lincoln # (Auto) 0.8 x10E3/uL (0.0-0.8) 04/28/23 18:46 [...] pH 6.0 (5.0-9.0) 04/28/23 19:30 Ur Specific Smoot 1.023 (1.001-1.030) 04/28/23 19:30 Urine Protein 100 [...] signed by Olu Hull DO> 04/28/23 [address] [facility] Work Phone: 1(590) 597-239407-14-2023 Evaluation note* Encounter Date Diagnosis Assessment Notes [...] understanding and is agreeable with treatment plan [employer] Other 05-30-2023 NoteCONSULTATION PROCEDURE DATE: 01/20/2023 PROCEDURE: Left sural [...] a marked reduction in her pain symptoms.[facility] [id number] NoteCONSULTATION CONSULTATION DATE: 12/25/2022 TO: Bonita Santos [...] our patients to inform us about any jbqt-fka-bjvmezh medications or herbal remedies/nutritional supplements/alternative remedies. 2. [...] treatment options with their primary care provider.[facility] [id number] Note CONSULTATION CONSULTATION DATE: 12/18/2022 TO: Bonita [...] our patients to inform us about any lyje-qen-eoqgdoz medications or herbal remedies/nutritional supplements/alternative remedies. 2. [...] treatment options with their primary care provider.[facility] [id number] NoteThis is a Telephone Appointment *This visit [...] her feet. Time Spent (more content not included)...[facility] 10-07-2022 NoteCONSULTATION CONSULTATION DATE: 10/07/2022 CHIEF COMPLAINT: [...] with Dr. Reis, orthopedic ankle specialist at [facility]. The patient reports 1/10 pain. The patient states it is not significant. Sitting mitigates the pain as does laying down. Standing, walking, activities aggravate the pain. The patient takes Motrin on a p.r.n. basis, wellbutrin 150 mg. The patient also has tramadol 50 mg she takes on an intermittent basis. The patient has not worked at [employer] for a few weeks now. The patient's [...] on a p.r.n. basis. CC: Dr. Barger [facility] [id number] Evaluation note* Encounter Date Diagnosis Assessment Notes [...] completed to make sure infection has cleared. [employer] Other 01-10-2023 NoteCONSULTATION CONSULTATION DATE: 09/02/2022 HISTORY [...] at the end of her work at [employer] aggravate the patient's pain. The patient states [...] proceed. CC: Chloé Dumont M.D. Christie Interiano, [facility]11-11-2022 NotePROCEDURE: XR ANKLE LT MIN 3 [...] Electronically authenticated by: CLARA GARCIA Date: 2022-07-04 06:46[facility]11-11-2022 NotePROCEDURE: XR ANKLE LT MIN 3 [...] Electronically authenticated by: CLARA GARCIA Date: 2022-07-04 06:[address] [place], [place] 0808509-13-2022 Evaluation note* Encounter Date Diagnosis Assessment Notes [...] primary care if hearing test fails again [employer] Other 08-27-2022 Evaluation note* Encounter Date Diagnosis [...] Pt understood and agreed to teatment plan. [employer] Other 06-13-2022 NoteOPERATIVE NOTE OPERATION DATE: 02/04/2022 [...] position. She was sedated by the nurse neurosurgeon. A bite block was placed in the [...] lesions. Patient tolerated procedure without any difficulty. [facility] Signed and Approved by: DR SARAI SKINNER . 02/06/2022 10:09:00[facility] HospitalChi complaint Narrative - Reported* 62-year-old female returns [...] rehab referral, follow-up otherwise in 6 mos [facility] DO Work Phone: Evaluation + Plan note No data available for this section [facility] evaluation + Plan note Future Appointments Appointment Date:05/02/2024 09:30:00 AM Scheduled Provider:Joe CARTAGENA MD Location:[facility] Appointment Type[facility] Future Appointments Appointment Date:10/07/2024 09:30:00 AM Scheduled Provider: Location:[facility] Appointment Type:URO Nurse Visit Appointment Date:10/10/2024 11:40:00 AM Scheduled Provider:CHLOÉ PIZANO PA-C Location:[facility] Appointment Type:URO Office Visit [facility] evaluation + Plan note Future Appointments Appointment Date:10/07/2024 09:30:00 AM Scheduled Provider: Location:[facility] Appointment Type:URO Nurse Visit Appointment Date:10/10/2024 11:40:00 AM Scheduled Provider:CHLOÉ PIZANO PA-C Location:[facility] Appointment Type:URO Office Visit Diagnostic Tests Pending * Urine Culture 09/20/24 [facility] Evaluation + Plan note Future Appointments Appointment Date:10/10/2024 11:40:00 AM Scheduled Provider:CHLOÉ PIZANO PA-C Location[facility] Appointment Type:URO Office Visit [facility] evaluation + Plan note Future Appointments Appointment Date:10/10/2024 11:40:00 AM Scheduled Provider:CHLOÉ PIZANO PA-C Location:[facility] Appointment Type:URO Office Visit Diagnostic Tests Pending * Urine Culture 10/07/24 [facility] evaluation noteNo assessment information available [facility] Work Phone: evaluation noteNo InformationNort [employer] Other evaluation note* Diagnosis Onset Date Resolution Status ST segment changes on electrocardiogram acute Unstable angina acute [facility] Work Phone: evaluation note* Diagnosis Onset Date Resolution Status Atherosclerotic cardiovascular disease acute Diabetes acute Former tobacco use acute HTN (hypertension) acute Hyperlipemia acute ST segment changes on electrocardiogram acute Unstable angina acute [facility] Work Phone: evaluation note* Diagnosis Coronary artery disease involving kiana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kiana heart without angina pectoris Primary hypertension Unspecified essential hypertension Mixed hyperlipidemia S/P right coronary artery (RCA) stent placement Type 2 diabetes mellitus with other diabetic kidney complication (Multi) [place] (myocardial infarction) Old myocardial infarction BMI 23.0-23.9, adult Former smoker Personal history of tobacco use, presenting hazards to health documented in this encounter [facility] Work Phone: Evalukghhk note* Diagnosis Acute cystitis without hematuria- Primary Dysuria documented in this encounter [facility] HealthcareEvaluation note* Diagnosis Mixed hyperlipidemia (CMS/HCC)- Primary Mixed hyperlipidemia Primary hypertension (CMS/HCC) Unspecified essential hypertension 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) Iron deficiency anemia, unspecified iron deficiency anemia type Recurrent major depressive disorder, in partial remission (HCC) (CMS/HCC) Type 2 diabetes mellitus with hyperglycemia, without long-term current use of insulin (CMS/HCC) documented in this encounter [facility] HealthcareEvaluation note* Diagnosis Coronary artery disease involving kiana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kiana heart without angina pectoris S/P right coronary artery (RCA) stent placement Primary hypertension Unspecified essential hypertension Mixed hyperlipidemia Type 2 diabetes mellitus with other diabetic kidney complication BMI 23.0-23.9, adult Smoker Tobacco use disorder [place] (myocardial infarction) Old myocardial infarction documented in this encounter [facility] Work Phone: Evaluation note* Diagnosis Acute cystitis without hematuria- Primary Dysuria documented in this encounter [facility]* Diagnosis Mixed hyperlipidemia (CMS/HCC)- Primary Mixed hyperlipidemia Recurrent major depressive disorder, in partial remission (HCC) (CMS/HCC) Screening mammogram for breast cancer ALDAIR (generalized anxiety disorder) (CMS/HCC) Generalized anxiety disorder Recurrent UTI Urinary tract infection, site not specified Iron deficiency anemia, unspecified iron deficiency anemia type documented in this encounter [facility]* Diagnosis Primary hypertension (CMS/HCC)- Primary Unspecified essential hypertension 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) ALDAIR (generalized anxiety disorder) ([facility]/HCC) Generalized anxiety disorder Type 2 diabetes mellitus with diabetic cataract ([facility]/HCC) Type II or unspecified type diabetes mellitus with ophthalmic manifestations, not stated as uncontrolled documented in this encounter [facility]* Diagnosis Primary hypertension (CMS/HCC) Unspecified essential hypertension documented in this encounter [facility] HealthcareHistory and physical note Author Olu Hull [facility] April 28, 2023 9:58pm Note Date/Time April 28, 2023 9:58pm [facility] [address] [place] [address] Hospitalist H&P Signed Patient: Brenda Segura MR#: [id number] : 1960 Acct:[id number] Age/Sex: 62 / F Adm Date: 3 Loc: Room: [address] [place] [address] Type: ADM IN Attending Dr: Olu Hull [...] negative unless noted below or in HPI [facility] Medical History (Updated 04/28/23 @ 21:54 by [...] % (Auto) 12.1 % (.) 04/28/23 18:46 Lincoln % (Auto) 7.4 % (.) 04/28/23 18:46 Eos % (Auto) 0.5 % (.) 04/28/23 18:46 Baso % (Auto) 1.5 % (.) 04/28/23 18:46 Nucleat RBC Rel Count 0.0 /100 WBC (0-0.5) 04/28/23 18:46 Neut # (Auto) 9.0 x10E3/uL (1.8-7.7) H 04/28/23 18:46 Lymph # (Auto) 1.4 x10E3/uL (1.00-4.8) 04/28/23 18:46 Lincoln # (Auto) 0.8 x10E3/uL (0.0-0.8) 04/28/23 18:46 [...] pH 6.0 (5.0-9.0) 04/28/23 19:30 Ur Specific Smoot 1.023 (1.001-1.030) 04/28/23 19:30 Urine Protein 100 [...] signed by Olu Hull DO> 04/28/23 2[address] [facility] Work Phone: Hisrdhb general Narrative - Reported* Type Description Date Medical History HTN Medical History High Cholesterolemia Medical History Depression Medical History Migraines Medical History Diabetes Surgical History Right knee arthroscopy Surgical History Left knee repair due to break Surgical History T&A Surgical History BTL Surgical History left breast biopsy 04/2017 Surgical History tubal ligation Surgical History ablasion heart Surgical History Left ankle surgery Dr. Mak er 12/2021 Hospitalization History See past surgical hx [employer] Other History general Narrative - Reported* Type [...] heart Surgical History Left ankle surgery Dr. Aubree dolan 12/2021 Surgical History cardiac stent Hospitalization History See past surgical hx [employer] Other Hospital Discharge instructions Additional Instructions Take the antibiotic cephalexin twice a day for 7 days take until completed Rest as needed Increase oral fluids Continue your other medication Follow-up with your family doctor Follow-up with cardiology Return to the ER for chest pain shortness of breath worsening dizziness fever vomiting or any other [facility] Work Phone: Hospital Discharge instructions No data available for this section [facility] Progress note Author W Marck [facility] April 30, 2023 4:36pm Note Date/Time April 30, 2023 4:36pm [facility] [address] [place] [address] Cardiology Progress Note Signed Patient: Brenda Segura MR#: [id number] : 1960 Acct:[id number] Age/Sex: 62 / F Adm Date: 3 Loc: Room: [address] [place] [address] Type: ADM IN Attending Dr: Simone Martinez DO Copies to: ~ Date of Service: 04/30/2023 Subjective Principal diagnosis: Aborted inferior STEMI Interval history: Ms. Segura is a 62 year old female seen in interventional cardiology consultation at the request of Dr. Card ER attending last evening and hospitalist this morning in female patient who presents from [facility] with severe angina rated on a scale of 10 out of 10 initially, improved with aspirin and sublingual nitroglycerin spray in the squad. Initial ECG revealed inferior STEMI injury current however second ECG revealed resolution and upon arrival to the ER complete normalization of the ECG. Notably, patient has been to [facility] ERs in the recent past for [...] 130/83 98 Room Air 04/30/23 12:00 04/30/23 12:04/30/23 12:04/30/23 12:00 04/30/23 12:04/30/23 12:00 Const General: cooperative, healthy appearing, comfortable, [...] % (Auto) 70.7 Lymph % (Auto) 17.6 Lincoln % (Auto) 9.4 Eos % (Auto) 1.3 Baso % (Auto) 1.0 Nucleat RBC Rel Count 0.1 Neut # (Auto) 6.2 Lymph # (Auto) 1.5 Lincoln # (Auto) 0.8 Eos # (Auto) 0.1 [...] MPV Neut % (Auto) Lymph % (Auto) Lincoln % (Auto) Eos % (Auto) Baso % (Auto) Nucleat RBC Rel Count Neut # (Auto) Lymph # (Auto) Lincoln # (Auto) Eos # (Auto) Baso # [...] MPV Neut % (Auto) Lymph % (Auto) Lincoln % (Auto) Eos % (Auto) Baso % (Auto) Nucleat RBC Rel Count Neut # (Auto) Lymph # (Auto) Lincoln # (Auto) Eos # (Auto) Baso # [...] Acute Documented By: Annabel Acharya DO 04/30/23 163 Signed By: <Electronically signed by Annabel Acharya DO> 04/30/23 1636 [facility] Work Phone: Progress note No data available for this section [facility] reason for referral (narrative)* Consultation (Routine) - Authorized Specialty Diagnoses / Procedures Referred By Contbutch t Referred To Contact Cardiology Diagnoses Coronary artery disease involving kiana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kiana heart without angina pectoris Procedures Follow Up In Cardiology Mahamed Acharya DO [facility] [facility], [address] [address] Mahamed Acharya DO [facility] [facility], [address] [address] Referral ID Status Reason Start Date Expiration Date V isits Requested Visits Authorized [id number] Authorized 12/17/2023 12/16/[address] [facility] Work Phone: Advance Directives Advance Directive Response Recorded Date/ Time Advance Directives No January 11 12:37pm Advance Directive Response Recorded Date/ Time Advance Directives No May 21st, 201 8 1:37pm Summary Purpose Family History Relationship Condition [...] 8:48am Wellness examination October 04, 2024 8:48am Chief Complaint Admit Date Poss uti January 17, 2025 4:00p m Reason for Visit Admit Date Acute UTI January 17, 2025 4:00p m Chief Complaint Admit Date Poss uti January 17, 2025 4:00p m R30. January 17, 2025 4:15p m R Hand Bump January 27, 2025 1:24p m Reason for Visit Admit Date Acute UTI January 17, 2025 4:00p m CAD (coronary artery disease) January 27, 2025 1:24pm Cervical radiculopathy January 27, 2025 1: 24pm 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 January 27, 2025 1:24pm High cholesterol January 27, 2025 1:24p m Type 2 diabetes mellitus with hyperglyce wilder January 27, 2025 1:24pm Type 2 diabetes mellitus with other circ ulatory complications January 27, 2025 1:24pm Type 2 diabetes mellitus with other spec ified complication January 27, 2025 1:24pm Additional Source Comments REASON FOR VISIT (unrecogniz ed section and content) Reason Comments Follow-up 6m Specialty Diagnoses / Procedures Referred By John yu Referred To Contact Cardiology Diagnoses Coronary artery disease involving kiana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kiana heart without angina pectoris Procedures Follow Up In Cardiology Mahamed Acharya, [address] [address] Phone: tel: fax: Mahamed Acharya, [address] [address] Phone: tel: fax: Referral ID Status Reason Start Date Expiration Date V isits Requested Visits Authorized [id number] Authorized 12/17/2023 12/16/2024 1 1 Reason Comments Received Outside Medical Records Reason Comments Annual Exam Reason Comments Follow-up Reason Comments Med Refill Care Teams (unrecognized sec tion and content) Team Status: Inactive Member Role Status Dates RJ Bagley Attending Provider Active Team Status: Inactive Member Role Status Dates Kathya Chang , GENEVIEVE Attending Provider Active Team Status: Active Member Role Status Dates Bonita Santos , DO Primary Care Provider Active Team Status: Inactive Member Role Status Dates Kathya Chang , GENEVIEVE Attending Provider Active PHYSICIAN NO FAMILY Primary Care Provider Active Team Status: Active Member Role Status Dates Joe Meneses PA-C Emergency Provider Active Bonita Santos , DO Primary Care Provider Active Olu Hull , DO Admit Provider, Attending Provid er Active Team Status: Inactive Member Role Status Dates Joe Meneses PA-C Emergency Provider Active Bonita Santos , DO Primary Care Provider Active Olu Hull , DO Admit Provider Active Simone Martinez , DO Attending Provider Active Hydraulic Strainer Operator Relationship Specialty Start Date End Date Tenafly Sergio Hernandez [address] [place] [address] PCP - General 08/05/04 Team Status: Inactive Member Role Status Dates Bonita Santos , Primary Care Provider Active Chloé Shea APRN ELECTRIC FAN ASSEMBLER-C Attending Provider Act rico Team Status: Inactive Member Role Status Dates Bonita Santos , DO Primary Care Provider Active Emily Grimes , [facility] Emergency Provider Active Hydraulic Strainer Operator Relationship Specialty Start Date End Date Bonita Santos DO [address] [place] [address] PCP - General 05/08/23 Hydraulic Strainer Operator Relationship Specialty Start Date End Date Chloé Cummings MD [address] [place] [address] PCP - General Family Medicine 11/26/23 Dominic Ballard NP [address] [place] [address] Nurse Practitioner Family Medicine 11/26/23 Hydraulic Strainer Operator Relationship Specialty Start Date End Date Chloé Cummings MD [address] [place] [address] PCP - General Family Medicine 11/26/23 Dominic Ballard NP [address] [place] [address] Nurse Practitioner Family Medicine 11/26/23 Hydraulic Strainer Operator Relationship Specialty Start Date End Date Chloé Cummings MD [address] [place] [address] PCP - General Family Medicine 11/26/23 Dominic Ballard NP [address] [place] [address] Nurse Practitioner Family Medicine 11/26/23 Hydraulic Strainer Operator Relationship Specialty Start Date End Date Chloé Cummings MD [address] [place] [address] PCP - General Family Medicine 11/26/23 Dominic Ballard NP [address] [place] [address] Nurse Practitioner Family Medicine 11/26/23 Hydraulic Strainer Operator Relationship Specialty Start Date End Date Bonita Santos DO [address] [place] [address] PCP - General 05/08/23 Hydraulic Strainer Operator Relationship Specialty Start Date End Date Chloé Cummings MD [address] [place] [address] PCP - General Family Medicine 11/26/23 Dominic Ballard NP [address] [place] [address] Nurse Practitioner Family Medicine 11/26/23 Hydraulic Strainer Operator Relationship Specialty Start Date End Date Chloé Cummings MD [address] [place] [address] PCP - General Family Medicine 11/26/23 Dominic Ballard NP [address] [place] [address] Nurse Practitioner Family Medicine 11/26/23 Hydraulic Strainer Operator Relationship Specialty Start Date End Date Chloé Cummings MD [address] [place] [address] PCP - General Family Medicine 11/26/23 Dominic Ballard NP [address] [place] [address] Nurse Practitioner Family Medicine 11/26/23 Hydraulic Strainer Operator Relationship Specialty Start Date End Date Chloé Cummings MD [address] [facility] [place] [address] PCP - General Family Medicine 11/26/23 Dominic Ballard NP [address] [place] [address] Nurse Practitioner Family Medicine 11/26/23 Hydraulic Strainer Operator Relationship Specialty Start Date End Date Chloé Cummings MD [address] [place] [address] PCP - General Family Medicine 11/26/23 Dominic Ballard NP [address] [place] [address] Nurse Practitioner Family Medicine 11/26/23 Hydraulic Strainer Operator Relationship Specialty Start Date End Date Chloé Cummings MD [address] [facility] [place] [address] PCP - General Family Medicine 11/26/23 Dominic Ballard NP [address] [facility] [place] [address] Nurse Practitioner Family Medicine 11/26/23 Team Status: [...] October 04, 2024 End: October 04, 2024 Hydraulic Strainer Operator Relationship Specialty Start Date End Date Chloé Cummings MD [address] [facility] [place], [place] [id number] PCP - General Family Medicine 11/26/23 Dominic Ballard NP [address] [place] [address] Nurse Practitioner Family Medicine 11/26/23 Team Status: Inactive Member Role Status Dates NON STAFF Primary Care Provider Active Start: January 17, 2025 End: January 17, 2025 Shu Painter APRN Attending Provider Active Start: January 17, 2025 End: January 17, 2025 Team Status: Inactive Member Role Status Dates Shu Painter APRN Attending Provider Active Start: January 17, 2025 End: January 17, 2025 Team Status: Active Member Role Status Dates Shelly Covarrubias MD Primary Care Provider Active Team Status: Inactive Member Role Status Dates Shelly Covarrubias MD Primary Care Provide r, Attending Provider Active Start: January 27, 2025 End: January 27, 2025 Goals (unrecognized section and content) Goals may be documented in a n alternate section INFORMATION SOURCE (unrecogn ized section and content) DATE CREATED AUTHOR 11/04/2022 [facility] DATE CREATED AUTHOR AUTHOR'S ORGANIZ ATION 01/05/[address] [facility] dical Specialist DATE CREATED AUTHOR AUTHOR'S ORGANIZ ATION 01/30/2023 [facility] DATE CREATED AUTHOR AUTHOR'S ORGANIZ ATION 05/05/2023 [facility] DATE CREATED AUTHOR AUTHOR'S ORGANIZ ATION 05/10/2023 [facility] DATE CREATED AUTHOR AUTHOR'S ORGANIZ ATION 06/23/2024 [facility] DATE CREATED AUTHOR AUTHOR'S ORGANIZ ATION 08/26/[address] [facility] dical Specialists EPIC DATE CREATED AUTHOR AUTHOR'S ORGANIZ ATION 09/24/2024 [facility] DATE CREATED AUTHOR AUTHOR'S ORGANIZ ATION 10/09/2024 [facility] DATE CREATED AUTHOR AUTHOR'S ORGANIZ ATION 10/10/2024 [facility] DATE CREATED AUTHOR AUTHOR'S ORGANIZ ATION 10/11/2024 [facility] DATE CREATED AUTHOR AUTHOR'S ORGANIZ ATION 10/16/2024 [facility] DATE CREATED AUTHOR AUTHOR'S ORGANIZ ATION 01/20/2025 [facility] Source Comments (unrecognize d section and content) In the event this informatio n is protected by the Federal Confidentiality of Alcohol and Drug Abuse Patient Records regulations: The Federal rules restrict any use of the information to criminally investigate or prosecute any alcohol or drug abuse patient.[facility] FOR RECORDS PERTAINING TO PATIENTS WHO ARE [...] BE BASED ON THE PRIMARY CLINICAL RECORDS. [employer] [facility]. provides no warranty or guarantee of the accuracy or completeness of information in this document.
--- NOTE | 2025-05-12 12:45 | ECG_ITS ---
The [facility] Test Date: 2025-05-12 Pat Name: BRENDA YANG Department: Room: - Gender: Female Cvir Tech: : 1960 Requested By: AMY LIZAMA Order Number: [id number] Jean MD: JESSIE BOB M.D. Measurements Intervals [place] Rate: 69 P: -4 IA: 128 QRS: 53 QRSD: 70 T: 32 QT: 384 QTc: 403 Interpretive Statements 1100 Sinus rhythm 9110 normal ECG Compared to ECG 04/17/2023 19:22:41 No significant changes Electronically Signed On 05-12-2025 20:03:30 EDT by JESSIE BOB M.D.
--- NOTE | 2025-05-12 12:45 | XR_ITS ---
The [address] [address] Patient Name: BRENDA YANG MRN: [id number] date: 1960 Sex: F Assigned Patient Location: ER Current Patient Location: ER Accession/Order Number: [id number] Exam Date: 05/12/2025 12:50 Report Date: 05/12/2025 13:01 At the request of: KIMBER MENDEZ MD Procedure: XR chest 1V PORTABLE AP ERECT CHEST 1250 hours CLINICAL HISTORY: Chest pain today COMPARISON: CT and chest x-ray 04/17/2023 The cardiac mediastinal contours are similar including a right pericardial fat. There is no vascular congestion. No developing consolidation is seen. There is no effusion or pneumothorax. The bony structures are osteopenic. There is endplate spurring at the spine.. XR/XR chest 1V IMPRESSION: NO ACUTE FINDINGS Impression dictated by: Consuelo Barnes M.D. 05/12/2025 1:01 PM [facility] Electron[facility] authenticated by: [id number] Y Date: 05/12/2025 13:01
[2025-05-12 13:00] LABS: Hematocrit 38.9 % (36.0-48.0); Hemoglobin 12.7 g/dL (12.0-16.0); Immature Granulocytes Abs Auto 0.05 10^3/uL (0.00-0.03); Immature Granulocytes Pct Auto 0.5 % (0.0-0.5); Lymphocytes Absolute Auto 1.4 10^3/uL (1.2-3.8); Mean Corpuscular HGB Conc 32.6 g/dL (29.9-35.2); Mean Corpuscular Hemoglobin 29.5 pg (26.7-34.0); Mean Corpuscular Volume 90.3 fL (81.0-99.0); Platelet Count 312 10^3/uL (150-450); Red Blood Count 4.31 10^6/uL (4.20-5.40); White Blood Count 10.6 10^3/uL (4.0-11.0)
[2025-05-12 13:15] LABS: Alanine Aminotransferase 28 U/L (14-59); Albumin Globulin Ratio 0.9; Albumin Level 3.7 g/dL (3.4-5.0); Alkaline Phosphatase 78 U/L (46-116); Anion Gap 15.8; Aspartate Amino Transferase 17 U/L (15-37); Blood Urea Nitrogen 17.0 mg/dL (7.0-18.0); Calcium 9.3 mg/dL (8.5-10.1); Carbon Dioxide 25.9 mmol/L (21.0-32.0); Chloride 105 mmol/L (98-107); Estimated GFR (African America >60 (>=60 mL/min/1.73m^2); Estimated GFR (Non-African Ame >60 (>=60 mL/min/1.73m^2); Globulin 4.1 g/dL; Glucose 116 mg/dL (74-106); Potassium 4.7 mmol/L (3.5-5.1); Sodium 142 mmol/L (136-145); Total Protein 7.8 g/dL (6.4-8.2)
--- NOTE | 2025-05-12 13:16 | ED.GENADUL1 ---
HPI HPI - General Adult General Chief complaint: Chest Pain Stated complaint: CHEST PAIN Time Seen by Provider: 05/12/25 13:02 Source: patient Mode of arrival: walk-in Limitations: no limitations History of Present Illness HPI narrative: Patient is a 64-year-old female with a past medical history of HTN, HLD, DM type II, cardiac ablation and stent, and a 45-year smoker that presents with complaints of heartburn and substernal chest pain that radiated to her back that started this morning after she took a few sips of coffee and her medications. She states that the heartburn sensation eased but she was still having some chest pain. She denies any dizziness, lightheadedness, shortness of breath, or abdominal pain. On arrival she denies all symptoms and states that they have resolved now. She is concerned as when she had her previous stent placed her chest pain attacks would only last about 6 minutes then resolve. Related Data Home Medications ?Medication ?Instructions ?Recorded ?Confirmed ixekizumab 80 mg/mL subcutaneous 80 mg subcut .EVERY 4 WEEKS 03/03/23 05/12/25 syringe (Taltz Syringe) lisinopril 10 mg tablet 10 mg PO DAILY 03/03/23 05/12/25 metformin 850 mg tablet 850 mg PO BID 03/03/23 05/12/25 atorvastatin 80 mg tablet 80 mg PO QDAY 05/12/25 05/12/25 glimepiride 4 mg tablet 4 mg PO BID 05/12/25 05/12/25 metoprolol tartrate 50 mg tablet 50 mg PO Q12H 05/12/25 05/12/25 pioglitazone 30 mg tablet 30 mg PO QDAY 05/12/25 05/12/25 sertraline 25 mg tablet 25 mg PO Q24H 05/12/25 05/12/25 Allergies Allergy/AdvReac Type Severity Reaction Status Date / Time eletriptan (From Relpax) Allergy Unknown Confusion Verified 05/12/25 12:26 Opioid HPI Opioid Management Most Recent Opioid Data: Last Pain Scale 4 Today, 12:27 Review of Systems ROS Status of ROS 10 or more systems reviewed and unremarkable except as noted in history and below PFSH PFSH Social History Little interest or pleasure in doing things: not at all Feeling down, depressed, or hopeless: not at all Exam Narrative Exam Narrative: General: No distress, age-appropriate Skin: Warm, dry, no pallor. No rash. Head: Normocephalic, atraumatic. Neck: Supple, non-tender. Eye: Pupils are equal, round and EOMI. No scleral icterus. Ears, Nose, Mouth, and Throat: No nasal mucosal hypertrophy. Oral mucosa is moist, no posterior oropharynx erythema, uvula is mid-line Cardiovascular: Regular Rate and Rhythm without murmur, gallop or rub. Respiratory: No accessory muscle use or respiratory distress. Lungs are clear to auscultation, no wheezing, rales or rhonchi Chest Wall: no tenderness Back: No midline thoracic or lumbar vertebral tenderness. Musculoskeletal: Full ROM of all extremities, no calf or popliteal tenderness GI: Abdomen is soft, non-distended, non tender to palpation. No masses appreciated. No rebound, guarding, or rigidity noted. Neurological: A&O x4. No cranial nerve dysfunction observed. No truncal ataxia. Moves all extremities. Sensation intact. Psychiatric: Cooperative and interactive. Normal mood and affect. Constitutional Vital Signs, click to edit/add: Last Vital Signs Temp 98.1 F 05/12/25 12:27 Pulse 73 05/12/25 15:24 Resp 12 05/12/25 15:24 BP 128/98 H 05/12/25 15:24 Pulse Ox 98 05/12/25 15:24 O2 Del Method Room Air 05/12/25 15:24 Documenting provider has reviewed patient's vital signs: yes Course Vital Signs Vital signs: Vital Signs Temperature 98.1 F 05/12/25 12:27 Pulse Rate 72 05/12/25 12:27 Respiratory Rate 16 05/12/25 12:27 Blood Pressure 152/79 H 05/12/25 12:27 Pulse Oximetry 100 05/12/25 12:27 Oxygen Delivery Method Room Air 05/12/25 12:27 Temperature 98.1 F 05/12/25 12:27 Pulse Rate 73 05/12/25 15:24 Respiratory Rate 12 05/12/25 15:24 Blood Pressure 128/98 H 05/12/25 15:24 Pulse Oximetry 98 05/12/25 15:24 Oxygen Delivery Method Room Air 05/12/25 15:24 Medical Decision Making MDM Narrative Medical decision making narrative: This is a 64-year-old female with a PMH of DM type II, HLD, HTN, cardiac ablation and stent that was placed a year ago that presents with substernal chest pain that radiates to the back that started this morning. She notes that she did have some heartburn with the chest pain, the heartburn resolved and the chest pain remained. It has resolved now on arrival here and she denies being symptomatic. She denies chest pain, shortness of breath, abdominal pain, dizziness, lightheadedness. She does take aspirin 81 mg daily. She is a 45-year smoker. States she is down to about 5 or 6 cigarettes a day. Differential diagnosis: ACS, Aortic Dissection,, PE, GERD IV placed, CBC, BMP, chest x-ray, D-dimer, Trop ordered on arrival. Patient sitting comfortably on cart in no distress. Patient's vitals are hemodynamically stable. EKG: NSR, no ST elevation or ischemic changeS. Labs: CBC: No leukocytosis, no anemia BMP: wnl Trop: Neg 6.6-Repeat Trop ordered after 1 hour D-Dimer: Elevated 1.18- CTA Chest ordered Patient updated with results currently and that we are going to be scanning her to evaluate for PE given her elevated D-dimer and then repeating a troponin. Patient remains asymptomatic and vitals remained hemodynamically stable. CTA negative for PE or cardiopulmonary etiology. Second troponin 6.6, no change. The patient?s evaluation was negative for ACS, aortic dissection, and PE. Persistent chest pain despite resolution of heartburn raises possibility of esophageal spasm or atypical GERD-related chest pain. Given normal cardiac workup and imaging, and resolution of symptoms, the most likely etiology is non-cardiac chest pain, likely secondary to GERD. I discussed this with patient and plan is to discharge home with follow-up with her Vegetable Canner in [place], Dr. Craig, and her primary care physician. We discussed discharging home on a PPI but patient declines and would like to speak with her primary care physician. Avoid GERD triggers (alcohol, caffeine, spicy foods, lying down after meals). Return precautions were discussed for chest pain recurrence, dyspnea, syncope, new or worsening symptoms. Lab Data Lab results reviewed: Yes I reviewed the patient's lab results Labs: Lab Results 05/12/25 05/12/25 Range/Units 12:37 14:23 WBC 10.6 (4.0-11.0) 10^3/uL RBC 4.31 (4.20-5.40) 10^6/uL Hgb 12.7 (12.0-16.0) g/dL Hct 38.9 (36.0-48.0) % MCV 90.3 (81.0-99.0) fL MCH 29.5 (26.7-34.0) pg MCHC 32.6 (29.9-35.2) g/dL RDW 13.5 (11.0-15.0) % Plt Count 312 (150-450) 10^3/uL MPV 10.4 (9.5-13.5) fL Neut % (Auto) 77.5 H (43.0-75.0) % Lymph % (Auto) 13.1 L (20.5-60.0) % [place] % (Auto) 7.5 (1.7-12.0) % Eos % (Auto) 0.8 L (0.9-7.0) % Baso % (Auto) 0.6 (0.2-2.0) % Neut # (Auto) 8.2 H (1.4-6.5) 10^3/uL Lymph # (Auto) 1.4 (1.2-3.8) 10^3/uL [place] # (Auto) 0.8 (0.3-0.8) 10^3/uL Eos # (Auto) 0.1 (0.0-0.7) 10^3/uL Baso # (Auto) 0.1 (0.0-0.1) 10^3/uL Abs Immat Gran (auto) 0.05 H (0.00-0.03) 10^3/uL Imm/Tot Granulo (auto) 0.5 (0.0-0.5) % D-Dimer 1.18 H* (<=0.59) mg/L FEU Sodium 142 (136-145) mmol/L Potassium 4.7 (3.5-5.1) mmol/L Chloride 105 (98-107) mmol/L Carbon Dioxide 25.9 (21.0-32.0) mmol/L Anion Gap 15.8 BUN 17.0 (7.0-18.0) mg/dL Creatinine 0.84 (0.55-1.02) mg/dL Est GFR ( Amer) >60 (>=60 mL/min/1.73m^2) Est GFR (Non-Af Amer) >60 (>=60 mL/min/1.73m^2) BUN/Creatinine Ratio 20.2 Glucose 116 H (74-106) mg/dL Calcium 9.3 (8.5-10.1) mg/dL Total Bilirubin 0.3 (0.2-1.0) mg/dL AST 17 (15-37) U/L ALT 28 (14-59) U/L Alkaline Phosphatase 78 (46-116) U/L Troponin I High Sens 6.6 6.6 (4.0-51.3) pg/mL Total Protein 7.8 (6.4-8.2) g/dL Albumin 3.7 (3.4-5.0) g/dL Globulin 4.1 g/dL Albumin/Globulin Ratio 0.[address] scan - chest: Attestation: I have reviewed the pertinent imaging results. Radiologist's impression: ITS Impressions Chest X-Ray 05/12/25 12:45 IMPRESSION: NO ACUTE FINDINGS Impression dictated by: Consuelo Barnes M.D. 05/12/2025 1:01 PM Dictation Location: [facility] Electronically authenticated by: [id number] Y Date: 05/12/2025 13:01 Chest CTA 05/12/25 13:36 IMPRESSION: No acute cardiopulmonary pathology. No evidence of pulmonary embolism. Impression dictated by: Clay Perkins M.D. 05/12/2025 2:36 PM Dictation Location: [place] Electronically authenticated by: [id number] Y Date: 05/12/2025 14:36 ECG Data Attestation: ?I have reviewed the pertinent ECG results. Discharge Plan Discharge Chief Complaint: Chest Pain Clinical Impression: Chest pain, Chest pain due to GERD Patient Disposition: Home, Self-Care Time of Disposition Decision: 15:14 Condition: Good Mode of Transportation: Private Vehicle Prescriptions / Home Meds: No Action Taltz Syringe 80 mg/mL syringe 80 mg subcut .EVERY 4 WEEKS lisinopril 10 mg tablet 10 mg PO DAILY metformin 850 mg tablet 850 mg PO BID atorvastatin 80 mg tablet 80 mg PO QDAY glimepiride 4 mg tablet 4 mg PO BID metoprolol tartrate 50 mg tablet 50 mg PO Q12H pioglitazone 30 mg tablet 30 mg PO QDAY sertraline 25 mg tablet 25 mg PO Q24H Print Language: Polish Instructions: Chest Pain (ED), GERD (Gastroesophageal Reflux Disease) (DC) Additional Instructions: Return if chest pain recurs, worsens, or changes character. Return for symptoms like shortness of breath, diaphoresis, syncope, or severe pain. Avoid triggers: caffeine, alcohol, spicy foods, lying down soon after eating. Follow-up with your media relations manager, Dr. Craig, and your primary care provider. Referrals: Shelly Covarrubias MD [Primary Care Provider, Family Practice] - 1 week VALERIA CRAIG [Physician] - 1 week Discharge Date/Time: 05/12/25 15:27
--- NOTE | 2025-05-12 13:36 | CT_ITS ---
[address] [address] Patient Name: BRENDA YANG MRN: [id number] date: 1960 Sex: F Assigned Patient Location: ER Current Patient Location: .[facility] Accession/Order Number: [id number] Exam Date: 05/12/2025 13:50 Report Date: 05/12/2025 14:36 At the request of: MEGAN CEDILLO Procedure: CT angio chest CT angio chest 05/12/2025 1:57 PM SIGN AND SYMPTOMS: Suprasternal chest pain radiating to back, nausea, elevated d-dimer CONTRAST: 100 mL of intravenous Omnipaque 350 TECHNIQUE: Multidetector CT axial slices of the chest were obtained with IV contrast. Multiplanar reformats were performed and viewed on a separate workstation and reviewed to further define anatomy and possible pathology. CT was performed with one or more of the following dose reduction techniques: Automated exposure control, adjustment of the mA and/or kV according to patient size, or use of iterative reconstruction technique. COMPARISON: 04/17/2023. FINDINGS: Lower neck: Thyroid gland within normal limits, no supraclavicle adenopathy. Vessels: Atherosclerotic changes are noted in the thoracic aorta, origins of the great vessels, and coronary arteries. There is no evidence of pulmonary embolism. Mediastinum and Julia: Within normal limits. Heart: Normal size. No pericardial effusion. Airways: Within normal limits Lungs: Within normal limits. Pleura: Within normal limits. Chest Wall: Within normal limits. Upper Abdomen: Within normal limits. Bones: Degenerative changes are noted in the thoracic spine. CT/CT angio chest IMPRESSION: No acute cardiopulmonary pathology. No evidence of pulmonary embolism. Impression dictated by: Clay Perkins M.D. 05/12/2025 2:36 PM Dictation Location: [place] [address] Electronically authenticated by: [id number] Y Date: 05/12/2025 14:36
== END 2025-05-12 15:27 | disposition home or self-care (01) ==
PROVIDERS: Physician Assistant; Emergency Provider Emergency Medicine; PCP Family Medicine
DX: R07.9 Chest pain, unspecified (principal); K21.9 Gastro-esophageal reflux disease without esophagitis; I10 Essential (primary) hypertension; E11.9 Type 2 diabetes mellitus without complications; E78.5 Hyperlipidemia, unspecified; Z79.899 Other long term (current) drug therapy; Z79.84 Long term (current) use of oral hypoglycemic drugs; Z95.5 Presence of coronary angioplasty implant and graft; Z79.82 Long term (current) use of aspirin; F17.210 Nicotine dependence, cigarettes, uncomplicated; R79.89 Other specified abnormal findings of blood chemistry
CPT/HCPCS: 36415; 71045; 71275; 80053; 84484; 85025; 85378; 93005; 99285; Q9967

== ENCOUNTER 2025-08-01 10:05 | Outpatient (OUT) | payer MEDICARE, SELFPAY ==
--- OUTSIDE RECORDS SUMMARY | 2025-07-28 09:02 | XMS_ITS | Continuity of Care Document ---
Author Organization [facility] Address [address] [place] [address] Phone Care Team Providers Care Dry Molder Name Role Phone Shelly Covarrubias MD Primary Care Provider Tc Mendez DO Attending Provider Camilla Canseco CMA Attending Provider Shelly Mcclelland MD Attending Provider Gustavo Salazar APRN Attending Provider Care Teams Patient Care Team Team Status: Active Member Role/Relationship Status Dates Shelly Covarrubias MD Primary Care Provider Active Visit Care Team Team Status: Active Member Role/Relationship Status Dates Shelly Covarrubias MD Primary Care Provider Active Start: May 12, 2025 Eulalia Mejia ProviderActiveStart: May 12, 2025 Visit Care Team Team Status: Active Member Role/Relationship Status Dates Shelly Covarrubias MD Primary Care Provider Active Start: May 17, 2025 Camilla Canseco CMAAttending ProviderActiveStart: May 17, 2025 Visit Care Team Team Status: Inactive Member Role/Relationship Status Dates Shelly Covarrubias MD Primary Care Provider Active Start: May 19, 2025 End: May 19, 2025Charo Downing ProviderActiveStart: May 19, 2025 End: May 19, 2025 Visit Care Team Team Status: Inactive Member Role/Relationship Status Dates Shelly Covarrubias MD Primary Care Provider Active Start: May 30, 2025 End: May 30, 2025Gigi Whitmore ProviderActiveStart: May 30, 2025 End: May 30, 2025 Patient Care Team Team Status: Inactive Member Role/Relationship Status Dates Shelly Covarrubias MD Primary Care Provider Active Start: July 28, 2025 End: July 28, 2025Gigi Whitmore ProviderActiveStart: July 28, 2025 End: July 28, 2025 Chief Complaint and Reason for Visit Chief Complaint Admit Date Amb Documentation May 17, 2025 9:59am [facility] Chest pain due to GERD April 10:17am Refer Dr Alicia Covarrubias: GERD May 30, 2025 9:13am 8 week follow up July 28, 2025 1 :33pm Reason for Visit Admit Date CAD (coronary artery disease) May 19, 2025 10:17am GERD (gastroesophageal reflux disease) S eptember 2024 10:17am Migraines May 19, 2025 10:17am GERD (gastroesophageal reflux disease) O ctober 2024 9:13am GERD (gastroesophageal reflux disease) D ec2024 1:33pm Allergies, Adverse Reactions, Alerts Allergen Type Severity Reaction Last Updated Verified Status eletriptan Allergy Unknown loopy lightheaded Decem anabella 2024 1:47pm Yes Active menotropins Allergy Unknown Agitated July 28, 2025 1:47pm Yes Active Social History Smoking Status Status Start Date End Date Date of Observa tion Smokes tobacco daily (finding) January 17, 2025 4:10pm Observation Status Observation Response Date of Response Legal Sex Female (finding) Sex Assigned At BirthFemaleMay 1960 Family History Relationship Condition Age at Onset Recorded Date/T stacie father Myocardial infarction Unknown Diabetes mellitusUnknownbrotherDiabetes mellitusUnknownfamily memberMalignant neoplasmUnknownfatherHeart diseaseUnknownHypertensionUnknownDiabetes mellitus UnknownDeceasedUnknownfamily memberDeceasedUnknownmotherHypertensionUnknown Problems Active Problems Problem Diagnosis/Recorded Date Onset Date Status C omments 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 January 27, 2025 12:49pm Unknown Active Type 2 diabetes mellitus with hyperglycemiaFebruary 2024 9:30amUnknown ActiveType 2 diabetes mellitus with other specified complicationJune 2024 12:50pmUnknownActiveScreening mammogram for breast cancerFebruary 2024 10:13amUnknownActiveNicotine dependence, cigarettes, uncomplicatedFebruary 2024 10:13amUnknownActiveCAD (coronary artery disease)July 22, 2024 4:28pm UnknownActiveCervical radiculopathyFebruary 2024 12:27pmUnknownActiveHigh cholesterolFebruary 2024 4:16pmUnknownActiveDysuriaNovember 2023 6:27pmUnknownActiveWellness examinationFebruary 2024 9:30amUnknownActive MigrainesFebruary 2024 4:12pmUnknownActivePain in both upper extremities October 04, 2024 9:33amUnknownActiveType 2 diabetes mellitus with other circulatory complicationsJune 2024 12:49pmUnknownActiveAcute UTIMay 2024 4:07pmUnknownActiveGERD (gastroesophageal reflux disease)May 19, 2025 9:54amUnknownActiveInactive/Resolved Problems Problem Diagnosis/Recorded Date Onset Date Status C omments UTI (urinary tract infection) July 02, 2023 9:49pm Un known Resolved DizzinessNovember 2022 9:49pmUnknownResolvedDiabetesSeptember 2022 5:50pmUnknownResolvedProblem List clean-up per request of Phys. EHR CmteUnstable anginaSeptember 2022 8:53pmUnknownResolvedProblem List clean-up per request of Phys. EHR CmteFormer tobacco useSeptember 2022 3:41pmUnknownResolved Problem List clean-up per request of Phys. EHR CmteDepressedNovember 2022 9:49pmUnknownResolvedAtherosclerotic cardiovascular diseaseSeptember 2022 4:24pmUnknownResolvedProblem List clean-up per request of Phys. EHR Cmte HyperlipemiaSeptember 2022 5:50pmUnknownResolvedProblem List clean-up per request of Phys. EHR CmteAcute coronary syndromeSept2022 8:33am UnknownResolvedProblem List clean-up per request of Phys. EHR CmteST segment changes on electrocardiogramSept2022 8:54pmUnknownResolvedProblem List clean-up per request of Phys. [facility] (hypertension)April 28, 2023 5:50pmUnknownResolvedProblem List clean-up per request of Phys. [facility] Medic[facility] Medication Status Dose Units Route Directions Qty Days Refills S tart Date Stop Date End Date Reason(s) Instructions Adherence Sertraline 25 mg tablet Discontinued 25 MG PO Jennifer ly 90 0Jun2024 2:08pmSept2024 7:21amGlimepiride 4 mg tablet Qylrxtynctbl9ZBLTXgwhf cnihv7663Dwtzmtcyr 2nd, 2025 12:45pmSept2024 7:21amGlimepiride 4 mg lioikeYiylzjhiygzl5ZHFRTubpt dtuug1554Andnyaqdr 8th, 2025 7:21amSeptember 2024 9:27amPioglitazone 30 mg cmodiqBgphac88JADYIgrdz028 May 01, 2025 7:21amComplies with drug therapySertraline 25 mg tablet Ldfdxlnguhre09XSODYlpfo045Oyqjyutzd 8th, 2025 7:21amDecember 2024 10:59am Sertraline 25 mg tabletActive0.ROUTE.UTPMFTY617Rckqutzl 4th, 2025 10:59amTAKE 1 TABLET BY MOUTH EVERY DAYComplies with drug therapyMetformin 850 mg tabletActive 850MGPOTwice zhlvo5849Zzwqfjgl 4th, 2025 1:12pmComplies with drug therapy Cephalexin 500 mg geswhnRmyzqlyimllo517MLMSGkndy zuxvw1214Vilifohb 9th, 2023 12:00amNovember 2023 4:27pmAspirin 81 mg Tablet,Delayed Release (Dr/Ec) Loqqib87EBNFNgpmzIsbvctfhn 4th, 2023 11:00pmComplies with drug therapy Pravastatin 80 mg dilqzjObbfpsfborxy31OAUXZxzvlNirmoyyyq 4th, 2023 11:00pm April 30, 2023 2:30pmLisinopril 10 mg mycytkYwzlzf90BGNKUbmtpDrsapdksg 4th, 2023 11:00pmComplies with drug therapyNitroglycerin 0.4 mg tablet, sublingual Active0.4MGSUBLINGUALAs Directed as needed for Chest PainSept2022 11:00pmTake one tablet every 5 minutes for cp, up to 3 doses.Complies with drug therapySertraline 25 mg tvkmuuLeghwhxbtxho84SOADEcwrkCjsdcuqfg 4th, 2023 11:00pm October 04, 2024 9:28amPioglitazone 30 mg euavlqDalngzijwgkv12RAOYTsdtx April 27, 2023 11:00pmFebruary 2024 9:28amHydroxyzine Pamoate 25 mg twuvcwvQjbctxsrzesz34XOTNGopxwTyodyiuit 4th, 2023 11:00pmFebruary 2024 9:07amMetformin 850 mg TbmxuxTtkaagboxirr187PRLYCelaz dailySept2022 11:00pmDecember 2024 1:12pmGlimepiride 4 mg TatqxuFocbeasoekkk0MNFCXqvep April 27, 2023 11:00pmFebruary 2024 9:28amAtenolol 50 mg Tablet Paocycornvsk15AKZCDwarpSzfmzmrkv 4th, 2023 11:00pmSept2022 2:30pm Nitrofurantoin Macrocrystal 100 mg yopkwjhVkkweooeisyl489DYPNUurnyLjqnkvqya 4th, 2023 11:00pmFebruary 2024 9:07amIxekizumab (Taltz Autoinjector) 80 mg/mL Auto-KcujskwkBxcpjx82LHLABTMJWUNQN 4 WEEKSSept2022 11:00pmComplies with drug therapyTicagrelor (Brilinta) 90 mg GxqgncIpvtqwuuxypa94FIEXRlgli daily 172555Aanniggxo 6th, 2023 11:00pmFebruary 2024 9:08amMetoprolol Tartrate 50 mg RgynquDxofmo03PFLHIddwl nntrb475232Uegpjkpgu 6th, 2023 11:00pmComplies with drug therapyAtorvastatin 80 mg TscgolKmsboz21NQRADmiry fpdwlmd214927 April 29, 2023 11:00pmComplies with drug therapyCephalexin 500 mg capsule Vtsbhdlskegs145VJZQNdcid times sgdtq4771Ylf 2024 11:00pmSeptember 2024 9:25amEmpagliflozin 10 mg bokkqgTzqvknphqhzv0OHYSYMxfpeAebj 2024 11:00pmSeptember 2024 9:27amFreeTextSi tablet Orally Once a day; Note: Source Status: Not-Taking\PRN; Provider: Shabbir Luevano ( ) Atenolol 50 mg yoftcfQqrbveuohvaa23UFMYXixjiBqps 2024 11:00pmSeptember 2024 9:26amFreeTextSi tablet Orally Once a day; Note: Source Status: Not-Taking\PRN; Provider: Shabbir Luevano ( )Omeprazole 20 mg tablet,disintegrat, delay aroVdlqsk24FNUZDnnuiQaztqimvc 25th, 2025 11:00pm Complies with drug therapyPantoprazole 40 mg tablet,delayed release (DR/EC) Fzviwkrjghcj97ZXJDEfcov29481Yhltoeh 6th, 2025 11:00pmDecember 2024 12:59pm Ciprofloxacin Hcl 250 mg mxuzluEreaevcstmng227GRCOWhgqx 12 axwjr402Xmfjfxmq 29th, 2024 12:00amFebruary 2024 9:06amGlimepiride 4 mg tabletDiscontinued4 MGPOTwice cfzwe6385Zhmoobjj 11th, 2025 9:26amSept2024 12:45pm Pioglitazone 30 mg wnuxrtHhvxowfhlfts30GQHAXgepx483Ubsjprap 2024 9:27am May 01, 2025 7:21amSertraline 25 mg lctulbIjjcoeqjnhhm00NPSORfbqc534 October 04, 2024 9:28amJun2024 2:08pmPantoprazole 40 mg tablet,delayed release (DR/EC)Fyoxmy94DMORYgwez16212Btynnllq 2024 12:58pmComplies with drug therapy Medical Equipment Device Date Implanted Device Details CL STENT VAIBHAV FRONTIER 4.0 X 26 April 29, 2 023 Relevant Diagnostic Tests and/or Laboratory Data Laboratory Results Test Collection Date/Time Result Date/Time Result Interpretation Reference Range Result Comment Performing Site D-Dimer Quantitat rico (PE/DVT) May 12, 2025 11:37am May 12, 2025 11:37am 1.18 mg/L FEU Above upper panic limits <=0.[address] KIMBER MENDEZ at 1334Increase s in D-Dimer concentratio n observed withthromboe mbolic events can be variable due to localization ,size, and age of the thrombus. Therefore, a thromboembol icevent cannot be diagnosed with certainty on the basis of thereference range. D-Dimers may also be elevated for a varietyof disorders including advanced age, , coronarydise ase, cancer, liver disease, infection, inflammation ,hematoma, DIC, trauma, post-surgery , diabetes, thrombolytic or anticoagulan t therapy, stress, and generalizedh ospitalizati on. Basophils # (Auto)May 12, 2025 11:37amSept2024 11:37am0.1 10 3/uL0.0-0.1Anion GapSept2024 11:37amSept2024 11:37am15.8 Troponin I High SensitivitySept2024 1:23pmSept2024 1:23pm6.6 pg/mL4.0-51.3CUT-OFF POINTS HAVE BEEN ESTABLISHED BASED ON THE FOURTHUNIVERSAL DEFINITION OF MYOCARDIAL INFARCTION. THE UPPERREFERENCE LIMIT (URL) OF TROPONIN, DEFINED THE 99THPERCENTILE OF cTnI DISTRIBUTION IN A REFERENCE POPULATION,HAS BEEN CONFIRMED THE DECISION THRESHOLD FOR MIDIAGNOSIS.99TH PERCENTILE = 51.4 PG/MLNOTE: HIGH-SENSITIVITY TROPONIN ASSAY IS NOT INTENDED TO BEUSED IN ISOLATION BUT SHOULD BE INTERPRETED IN CONJUNCTIONWITH OTHER DIAGNOSTIC AND CLINICAL INFORMATION.Basophils (%) (Auto)May 12, 2025 11:37amSept2024 11:37am0.6 %0.2-2.0Albumin/Globulin Ratio May 12, 2025 11:37amSept2024 11:37am0.9Eosinophils # (Auto) May 12, 2025 11:37amSept2024 11:37am0.1 10 3/uL0.0-0.7 AlbuminSept2024 11:37amSept2024 11:37am3.7 g/dL3.4-5.0 Eosinophils (%) (Auto)May 12, 2025 11:37amSept2024 11:37am 0.8 %Below low normal0.9-7.0Alkaline PhosphataseSeptember 2024 11:37am May 12, 2025 11:37am78 U/T14-442ZnlmwbfwftNcsdkfmjy 19th, 2025 11:37am May 12, 2025 11:37am38.9 %36.0-48.0Alanine Aminotransferase (ALT/SGPT) May 12, 2025 11:37amSept2024 11:37am28 U/N89-31Vgpwdnhmmp May 12, 2025 11:37amSept2024 11:37am12.7 g/dL12.0-16.0 Aspartate Amino Transf (AST/SGOT)May 12, 2025 11:37amSept2024 11:37am17 U/E24-64Rjcwupbe Granulocyte # (Auto)May 12, 2025 11:37am May 12, 2025 11:37am0.05 10 3/uLAbove high normal0.00-0.03BUN/Creatinine RatioSept2024 11:37amSept2024 11:37am20.2Immature Granulocyte % (Auto)May 12, 2025 11:37amSept2024 11:37am0.5 %0.0-0.5Blood Urea NitrogenSept2024 11:37amSept2024 11:37am17.0 mg/dL7.0-18.0Lymphocytes # (Auto)May 12, 2025 11:37am May 12, 2025 11:37am1.4 10 3/uL1.2-3.8Calcium LevelSept2024 11:37amSeptember 19th, 2025 11:37am9.3 mg/dL8.5-10.1Lymphocytes (%) (Auto) May 12, 2025 11:37amSept2024 11:37am13.1 %Below low normal 20.5-60.0Chloride LevelSeptember 2024 11:37amSept2024 11:37am 105 mmol/Q26-987Ukpp Corpuscular HemoglobinSeptember 2024 11:37amSept2024 11:37am29.5 pg26.7-34.0Carbon Dioxide LevelSeptchandler [facility] 2024 11:37amSeptchandler regional medical center 2024 11:37am25.9 mmol/L21.0-32.0Mean Corpuscular Hemoglobin ConcentSeptchandler regional medical center 2024 11:37amSeptchandler regional medical center 2024 11:37am32.6 g/dL29.9-35.2CreatinineSeptchandler regional medical center 2024 11:37amSeptchandler regional medical center 2024 11:37am 0.84 mg/dL0.55-1.02Mean Corpuscular VolumeSeptchandler regional medical center 2024 11:37amSeptchandler regional medical center 2024 11:37am90.3 fL81.0-99.0Estimated GFR ()May 12, 2025 11:37amSept2024 11:37am>60>=60 mL/min/1.73m 2Monocytes # (Auto)May 12, 2025 11:37amSept2024 11:37am0.8 10 3/uL0.3-0.8 Estimated GFR (Non- AmericanSeptchandler regional medical center 2024 11:37amSeptchandler regional medical center 2024 11:37am>60>=60 mL/min/1.73m 2Monocytes (%) (Auto)May 12, 2025 11:37amSept2024 11:37am7.5 %1.7-12.0GlobulinSeptchandler regional medical center 2024 11:37amSeptchandler regional medical center 2024 11:37am4.1 g/dLMean Platelet VolumeSeptember 2024 11:37amSept2024 11:37am10.4 fL9.5-13.5Glucose LevelSeptember 2024 11:37amSept2024 11:70kb425 mg/dLAbove high qrufmu07-113 Neutrophils # (Auto)May 12, 2025 11:37amSept2024 11:37am8.2 10 3/uLAbove high normal1.4-6.5Potassium LevelSeptember 2024 11:37am May 12, 2025 11:37am4.7 mmol/L3.5-5.1Neutrophils (%) (Auto)May 12, 2025 11:37amSept2024 11:37am77.5 %Above high asqsyd29.0-75.0 Sodium LevelSeptember 2024 11:37amSept2024 11:95fo003 mmol/L 136-145Platelet CountSeptember 2024 11:37amSept2024 11:97ct661 10 3/wP157-239Xaydo BilirubinSept2024 11:37amSept2024 11:37am0.3 mg/dL0.2-1.0Red Blood CountSeptember 2024 11:37amSept2024 11:37am4.31 10 6/uL4.20-5.40Total ProteinSeptember 2024 11:37am May 12, 2025 11:37am7.8 g/dL6.4-8.2Red Cell Distribution WidthSept2024 11:37amSept2024 11:37am13.5 %11.0-15.0Corrected White Blood CountSept2024 11:37amSept2024 11:37am10.6 10 3/uL 4.0-11.0 Vital Signs Vital Reading Result Reference Range Collection Date/Time Height 67 [in_i] May 19, 2025 9:45wyPaatie88.76 kgSept2024 9:21amHeart Rate71 /mag72-579Rhtuorkrs 2024 9:21amBP Ocjjcmdt729 mm[Hg]100-140September 2024 9:21amBP Lyuqwkqzj01 mm[Hg]60-100September 2024 9:21amBMI (Body Mass Index)24.4 kg/a8Bddjuxrxl 2024 9:11shMzsiuq71 [in_i]May 30, 2025 8:88loMagqde76.76 kgOctober 2024 8:33amHeart Rate70 /luq73-278Yazgfxl 2024 8:33amBP Hkzwuapq945 mm[Hg]100-140October 2024 8:33amBP Diastolic 61 mm[Hg]60-100October 2024 8:33amBMI (Body Mass Index)24.4 kg/r6Ougkbbf 2024 8:26kyAvvqiy08 [in_i]July 28, 2025 1:79raWnbjxd55.76 kgDecember 2024 1:48pmHeart Rate78 /iig13-471Ugwlattg 2024 1:48pmBP Hvbnlvrj281 mm[Hg]100-140December 2024 1:48pmBP Qvuuzrrff12 mm[Hg]60-100December 2024 1:48pmBMI (Body Mass Index)24.4 kg/o3Tiihemiz 2024 1:48pm Advance Directives Advance Directive Response Recorded Date/ Time Advance Directives No January 11 12:37pm Insurance Providers Guarantor Yvonne Segura Address [address] [place] [id number] Info.Home Phone: Coverage Status Update:2025 Payer Group Member ID Coverage Type Subscriber Relationship to Subscriber Effective Date Expiration Date Jose Juan DUNHAM PF Id: [id number] A Pocock Id: [id number] [address] [place] [address] [address] [facility] [phone] Home Phone: Email: [email or web address] Encounters Encounter Location(s) Arrival/Admit Date Discharge/Departure Date Discharge/Departure Disposition Provider(s) Non-patient / Non-visit -[facility] Gustavo Santillan May 12, 2025 12:37pm Tristan Enriquez-patient / [facility] 9:59amCatck Canseco CMADeparted Physician/Provider [facility] 10:17amSeptember 2024 12:07pm Discharged to home care or self care (routine discharge)Shelly Covarrubias MD [facility]arted Physician/[facility] 20[facility] 9:13amOctober 2024 10:03amDischarged to home care or self care (routine discharge)Gustavo Salazar APRNDeparted Physician/Provider Office Visit-[facility] 2:00pm Discharged to home care or self care (routine discharge)Gustavo Salazar APRN Recent Diagnosis Onset Date Admit Date CAD (coronary artery disease) Unknown Se pt2024 10:17am GERD (gastroesophageal reflux disease) Unknown May 19, 2025 10:17am Migraines Unknown May 19, 2025 10:17am GERD (gastroesophageal reflux disease) Unknown May 30, 2025 9:13am GERD (gastroesophageal reflux disease) Unknown July 28, 2025 1:33pm Assessments Diagnosis Onset Date Resolution Status Admit Date CAD (coronary artery disease) acuteSept2024 10:17amGERD (gastroesophageal reflux disease)acute May 19, 2025 10:17amMigrainesacuteSeptember 2024 10:17amGERD (gastroesophageal reflux disease)acuteOct2024 9:13amGERD (gastroesophageal reflux disease)acuteDe2024 1:33pm Plan of Treatment Author Shelly Covarrubias [facility] CenterAuthoredSept2024 9:59amSamples ubrelvy given. call w results. Will notify Dr. Acharya's office of her recent ER visit and test results. Pt agrees to referral to GI. continue otc omeprazole in the meantime. Author Gustavo Salazar [facility] CenterAuthoredOctober 2024 11:39am- Order pantoprazole 40 mg daily for treatment of GERD. - Anti-reflux precautions discussed: ?? Loss weight ?? Elevate head of bed 4-6 inches when sleeping ?? Avoid eating within 3 hours before bedtime. ?? Maintain upright posture during and after eating. ?? Avoid clothing that is tight in the abdominal area. ?? Minimize narcotics ?? Avoid foods that make symptoms worse (examples include coffee, chocolate, alcohol, peppermint, and fatty foods) . Eat 5-6 small meals throughout the day instead of 2-3 large meals. ?? Do not use tobacco products ?? Minimize alcohol use ?? Avoid lying down for 3 hours after a meal -Patient declined undergoing Chen's screening for history of intermittent GERD since her teenage years and 40+ year tobacco smoking history. - Follow-up office visit in 8 weeks for GERD follow-up. Future Tests Future scheduled test information is unavailable Pending Tests Pending diagnostic test information is unavailable Future Visits Future appointment information is unavailable Future Procedures Future procedure information is unavailable Future Medications Future medication information is unavailable Patient Instructions Patient instructions are unavailable
--- OUTSIDE RECORDS SUMMARY | 2025-08-01 10:15 | XMS_ITS | CCD ---
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 Name Role Phone Kristina Janet Unavailable Maria Esther Ashby Unavailable RJ Ashby Attending Provider [phone] Huy MARES, Tommy Alva Attending Unavailab ashlee Quick PA-C, Rajni Valiente Referring Unava ilable Danielle DO, Bonita Ena Primary Care Unavailabl e Danielle DO, Bonita Ena Primary Care Unavailabl e Huy DPM, Tommy Alva Attending Unavailab le Huy DPM, Tommy Alva Attending Unavailab le Danielle DO, Bonita Ena Primary Care Unavailabl e Danielle DO, Bonita Ena Primary Care Unavailabl e Huy DPM, Tmomy Alva Attending Unavailab le Danielle DO, Bonita Ena Primary Care Unavailabl e Huy HERNANDOM, Tommy Alva Attending Unavailab CHRISTIE Moses Attending Unavailable CHRISTIE INTERIANO Admitting Unavailable HANNA, DR PAIGE Primary Care Unavailable MISC, DR PAIGE Primary Care Unavailable ASH ., DR JORGE Whitley Admitting Unavailable OGFF ., DR JORGE Whitley Consulting Unavailable GOFF ., DR JORGE Whitley Attending Unavailable GOFF ., DR JORGE Whitley Admitting Unavailable ASH ., DR JORGE Whitley Consulting Unavailable MISC, DR PAIGE Primary Care Unavailable ASH ., DR JORGE Whitley Attending Unavailable LAKSHMIPATHY ., NARENDROD Admitting Rama vailable LAKSHMIPATHY ., NARENDINESATH Attending Rama vailable MISC, DR PAIGE Primary Care Unavailable LAKSHMIPATHY ., NARENDRANATH Consulting Rama vailable LAKSHMIPATHY ., NARENDINESATH Attending Rama vailable LAKSHMIPATHY ., NARENDRANATH Admitting Rama vailable LAKSHMIPATHY ., NARENDRANATH Consulting Rama vailable MISC, DR PIAGE Primary Care Unavailable HALKER ., FERNANDO Consulting Unavailable LAKSHMIPATHY ., NARENDRANATH Attending Rama vailable LAKSHMIPATHY ., NARENDRANATH Admitting Rama vailable LAKSHMIPATHY ., EVERETTERANATH Consulting Rama vailable MISC, DR PAIGE Primary Care Unavailable MISC, DR PAIGE Primary Care Unavailable GOFF ., DR JORGE Whitley Admitting Unavailable GOFF ., DR JORGE Whitley Attending Unavailable MISC, DR PAIGE Consulting Unavailable GOFF ., DR JORGE Whitley Consulting Unavailable FAWCASSY, NEGRETE H Attending Unavailable WIECEK ., DR SARAI Vargas Consulting Unavailab le FAWCASSY, NEGRETE H Admitting Unavailable REQUEST, DR PEARSON LISTED Primary Care Unavaila ble WIECEK ., DR SARAI Vargas Procedure Practitioner Un available ZIEBER, DR CLARA Rosen Consulting Unavailable CASSY ., SERGEI Consulting Unavailable FAWWATristan, NEGRETE H Consulting Unavailable KAT VILLAVICENCIO Consulting Unavailable CLARA NESBITT Consulting Unavailable MISC, DR PAIGE Primary Care Unavailable TOMMY REIS Consulting Unavailable TOMMY REIS Attending Unavailable TOMMY REIS Admitting Unavailable RAJNI QUICK Attending Unavailable REQUEST, NONE LISTED Primary Care Unavaila ble RAJNI QUICK Admitting Unavailable ZIEBER, DR CLARA Rosen Consulting Unavailable RAJNI QUICK Consulting Unavailable HANNA, DR PAIGE Primary Care Unavailable CHRISTIE INTERIANO Admitting Unavailable CHRISTIE INTERIANO Attending Unavailable Kathya Chang Unavailable GENEVIEVE Chang Attending Provider [phone] NO FAMILY, PHYSICIAN Primary Care Provider Unava ilable HARISH Meneses Emergency Provider DO Bonita Santos Primary Care Provider [facility] DO Olu Villegas Admit Provider [facility] DO Olu Villegas Attending Provider [phone] HARISH Meneses Emergency Provider [phone] DO Bonita Santos Primary Care Provider [facility] Olu T Admit Provider [phone] DO Simone Martinez Attending Provider Sergio Mcknight Primary Care Provider Bonita Santos Unavailable Unavailable Unavailable Marck, Dr. Mahamed Encinas Attending Unava ilvicki Acharya, Dr. Mahamed Encinas Attending Unava ilvicki Acharya, Dr. Mahamed Encinas Referring Ramava tammy Acharya, Dr. Mahamed Encinas Attending Ramava Chloé Scott Unavailable HARISH Meneses Emergency Provider DO Bonita Santos Primary Care Provider [facility] Olu T Admit Provider [phone] DO Simone Martinez Attending Provider [phone] GENEVIEVE Shea Attending Provider Cornelio, [employer] WORKER- Emily Anne Emergency Provider Bonita Santos DO Primary Care Provider [phone] NONE, XXXX Primary Care Physician UnavailChloé Beach MD Primary Care Provider Priscilla GANG PUSHER, Dominic Hartman Unavailable BONITA SANTOS Attending Unavailable DOMINIC BALLARD Attending Unavailab DOMINIC Latham Attending Unavailab DOMINIC Latham Referring Unavailab MATEO Biggs Attending Unavailable ZAHIRA LUNDBERG Attending Unavailable XIAO MASCORRO Attending Unavailable DOMINIC BALLARD Attending Unavailab DOMINIC Latham Attending Unavailab Ciera Agustin APRN Attending Provider [phone] NON STAFF Primary Care Provider UnavailHARISH Thomas Admitting UnavailHARISH Kurtz Attending Unavailab le JERICA, CHLOÉ E Attending Unavailable JERICACHLOÉ E Attending Unavailable CARTAGENAJoe R Referring Unavailable CARTAGENAJoe R Admitting Unavailable CARTAGENAJoe R Attending Unavailable JERICA, CHLOÉ E Admitting Unavailable JERICA, CHLOÉ E Attending Unavailable DANIELLE BONITA Referring Unavailable JERICA, CHLOÉ E Attending Unavailable CARTAGENA, Joe R Attending Unavailable JERICA, CHLOÉ E Attending Unavailable Shu Painter APRN Attending Provider [phone] Shu Painter Admitting Unavailable Shu Painter Attending Unavailable NON STAFF Primary Care Unavailable Ciera Saldana Admitting Unavailable Les Ciera M Attending Unavailable Amy Lizama MD Primary Care Provider Tc Craig DO Attending Provider [phone] Camilla Canseco CMA Attending Provider Unavaila Amy Hatch MD Attending Provider Gustavo Salazar APRN Attending Provider Amy Lizama MD Primary Care Provider MAHAMED ACHARYA Attending Unavailable MAHAMED ACHARYA Referring Unavailable AMY LIZAMA Primary Care Unavailable Allergies Allergy ClassificationReported Allergen(s)Allergy TypeDate of OnsetReaction(s) Facility (20 sources)eletriptan; Translations: [Relpax TABS]Drug Ahtsysj53-29-6288 Dizziness (finding), Dizziness, Blurred vision, Disorientated (finding)[facility] (4 sources)eletriptan; Translations: [Relpax]Drug Gllyvfx19-32-6524Nnr [facility] Repository (3 sources)metFORMIN; Translations: [metFORMIN][facility] (20 sources)Follicle Stimulating Hormone; Translations: [menotropins]Drug Pppiwum30-21-5383Ovan[facility]kaIxptlggrvL[facility] (1 source)eletriptanDrug Sixvssl36-01-5951MrgrzgrWmcrqdpdd [facility] (1 source)metFORMIN; Translations: [metformin]Drug AllergyDiarrhea (finding) [facility] (1 source)metFORMINDrug Gamhfkh70-12-6698[facility] (1 source)eletriptanDrug Pnkbmmq29-70-7543BcugjobfpCommunity [facility] Repository Medications Current Medications MedicationDrug Class(es)DatesSig (Normalized)Sig (Original)amoxicillin 875 mg oral tablet (1 source)Penicillin-class AntibacterialStart: 84-90-5178rcry 1 tablet by mouth every twelve hoursAmoxicillin 875 MG 1 tablet Orally every 12 hrs for 10 days Apr, Activeaspirin 81 mg oral capsule (20 sources)Platelet Aggregation Inhibitor, Nonsteroidal Anti-inflammatory Drug Start: 95-46-3889qnlh 1 mg by mouth every twenty-four hoursaspirin 81 mg oral capsule mg cap(s), Oral, q24hr Start Date: 11/24/23 Status: OrderedStart: 96-99-9029trbq 1 tablet by mouth once dailyaspirin 81 mg chewable tablet Chew and swallow 1 tablet (81 mg) once daily. ActiveComment on above:Take 81 mg by mouth once daily.atorvastatin 80 mg oral tablet (20 sources)HMG-CoA Reductase InhibitorStart: 87-36-5728obta 1 tablet by mouth once daily at bedtimeatorvastatin (Lipitor) 80 mg tablet Indications: Mixed hyperlipidemia Take 1 tablet (80 mg) by mouth once daily at bedtime. 90 tablet 3 06/22/2024 ActiveStart: 04-30-2023 End: 88-85-0835waox 1 tablet by mouth once daily in the eveningclopidogrel 75 mg oral tablet (13 sources)P2Y12 Platelet InhibitorStart: 12-17-2023 End: 44-39-1699uvvr 1 tablet by mouth once dailyclopidogrel (Plavix) 75 mg tablet Indications: Coronary artery disease involving [place]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[place] heart without angina pectoris , S/P right coronary artery (RCA) stent placement Take 1 tablet (75 mg) by mouth once daily. 90 tablet 3 12/17/2023 06/22/2024 Discontinued (Therapy completed)Start: 05-08-2023 End: 00-63-2284ekwvbumffib (Plavix) 75 MG tablet TAKE 8 TABLETS BY MOUTH FOR 1 DOSE THEN TAKE 1 TABLET DAILY THERAFTER. STOP BRILINTA 05/08/2023 06/03/2024 DiscontinuedStart: 05-08-2023 End: 53-99-4111csqqapsckgo 75 mg Tab 75 mg = 1 tab(s), Daily Start Date: 11/24/23 Status: Orderedcranberry preparation 200 mg oral capsule (7 sources)Non-Standardized Food Allergenic Extract, Non-Standardized Plant Allergenic ExtractCranberry 200 MG capsule Take by mouth Activeestradiol 0.1 mg/ml vaginal cream (8 sources)EstrogenStart: 31-75-0493vefbmkidz 0.1 mg/g Vag Crm 1 gm, Vaginal, MonWedFri, 42.5 gm, Refill(s) 6, [facility] #[id number], 170, cm, 12/29/23 10:37:00 EDT, Height/Length Dosing, 66, kg, 11/24/23 9:34:00 EDT, Weight Dosing Start Date: 12/29/23 Status: OrderedStart: 11-24-2023 End: 31-09-5684Rpvbftd 0.1 MG/GM vaginal cream See Instructions, 42.5 gm, Refill(s) 0, Apply pea sized amount vaginally nightly x3wks, then 3x/wk there after., [facility] #[id number], 170, cm, 11/24/23 9:34:00 EDT, Height/Length Dosing, 66, kg, 11/24/23 9:34:00 EDT, Weight Dosing 11/24/2023 06/03/2024 Discontinued Start: 64-86-8522Ahixigw 0.1 mg/g Cream See Instructions, 42.5 gm, Refill(s) 0, Apply pea sized amount vaginally nightly x3wks, then 3x/wk there after., [facility] #[id number], 170, cm, 11/24/23 9:34:00 EDT, Height/Length Dosing, 66, kg, 11/24/23 9:34:00 EDT, Weight Dosing Start Date: 11/24/23 Status: Orderedferrous sulfate 325 mg oral tablet (20 sources)Start: 33-21-8021kroy 1 tablet by mouth once daily at breakfast FeroSuL tablet Take 1 tablet (325 mg) by mouth once daily with breakfast. 02/13/2024 ActiveStart: 02-13-2024 End: 99-55-0442lsnf 1 tablet by mouth in the morningferrous sulfate (Fe Tabs) 325 (65 Fe) MG EC tablet Indications: Iron deficiency anemia, unspecifiediron deficiency anemia type Take 1 tablet (325 mg) by mouth in the morning and 1 tablet (325 mg) before bedtime. Do not crush, chew, or split.. 180 tablet 06/17/2024 Activeglimepiride 4 mg oral tablet (20 sources)SulfonylureaStart: 06-15-2023 End: 20-61-4843qxly 1 tablet by mouth twice dailyglimepiride (Amaryl) 4 mg tablet Take 1 tablet (4 mg) by mouth 2 times a day. 06/15/2023 ActiveStart: 04-28-2023 End: 11-16-1075rgse 1 tablet by mouth once dailyGlimepiride 4 mg Tablet Discontinued 4 MG PO Daily April 28, 2023 12:00am October 04, 2024 1 0:28amtake 1 tablet by mouth twice dailyGlimepiride 4 MG Oral Tablet TAKE 1 TABLET TWICE DAILY. Quantity: 0 Refills: 0 Ordered: 57-Sbt-9275OX Active Glimepiride ActiveGlimepiride Not-TakinghydrOXYzine pamoate 25 mg oral capsule (20 sources)AntihistamineStart: 08-03-2023 End: 91-24-9540febh 1 capsule by mouth every six hours for anxietyhydrOXYzine pamoate (Vistaril) 25 MG capsule Indications: Anxiety attack (CMS/HCC) take 1 capsule by mouth every 6 hours if needed for anxiety FOR UP TO 10 DAYS 30 capsule 2 08/03/2023 06/03/2024 DiscontinuedStart: 04-28-2023 End: 28-70-0573gljc 1 capsule by mouth once dailyHydroxyzine Pamoate 25 mg capsule Discontinued 25 MG PO Daily April 28, 2023 12:00am October 04, 2024 10:07amtake 1 tablet by mouth every twenty-four hourshydrOXYzine HCl 25 MG 1 tablet as needed Orally Once a day Active1 ml ixekizumab 80 mg/ml auto-injector (20 sources)Interleukin-17A AntagonistStart: 86-33-9652rjsoew 1 mL by subcutaneous injection onceixekizumab (Taltz Syringe) 80 mg/mL injection Inject 1 mL (80 mg) under the skin every 28 (twenty-eight) days. Activeinject 1 mL by subcutaneous injection every monthIxekizumab (Taltz) 80 MG/ML injection 1 ml Subcutaneous once monthly Activeinject 1 mL by subcutaneous injection every monthTaltz 80 MG/ML 1 mL Subcutaneous Once a month Activelisinopril 10 mg oral tablet (20 sources)Angiotensin Converting Enzyme InhibitorStart: 13-55-1584wgwm 1 tablet by mouth once dailylisinopril 10 mg tablet Indications: Primary hypertension Take 1 tablet (10 mg) by mouth once daily. 90 tablet 3 06/22/2024 ActiveStart: 04-28-2023 End: 46-89-5338qiza 1 tablet by mouth once dailymetFORMIN hydrochloride 850 mg oral tablet (20 sources)BiguanideStart: 04-28-2023 End: 73-95-2175foop 1 tablet by mouth twice dailymetFORMIN (Glucophage) 850 mg tablet Take 1 tablet (850 mg) by mouth 2 times daily (morning and late afternoon). 06/15/2023 Activemetoprolol tartrate 50 mg oral tablet (20 sources)beta-Adrenergic BlockerStart: 49-09-1442nnsq 1 tablet by mouth in the morningmetoprolol tartrate (Lopressor) 50 MG tablet Indications: Primary hypertension (CMS/HCC) TAKE 1 TABLET BY MOUTH IN THE MORNING AND TAKE 1 TABLET BEFORE BEDTIME 180 tablet 1 11/26/2024 ActiveStart: 33-26-2328sxhw 1 tablet by mouth twice dailymetoprolol tartrate (Lopressor) 50 mg tablet Indications: Coronary artery disease involving [place]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[place] heart without angina pectoris , Primary hypertension , [place] (myocardial infarction) Take 1 tablet by mouth 2 times a day. 180 tablet 3 06/22/2024 ActiveStart: 11-24-2023 Metoprolol tartrate 50 mg Tab 50 mg = 1 tab(s), BID Start Date: 11/24/23 Status: OrderedStart: 04-30-2023 End: 43-07-5485wccs 1 tablet by mouth twice dailytake 1 capsule by mouth once dailyMetoprolol Succinate 50 MG 1 capsule Orally Once a day Activenitrofurantoin 100 mg oral tablet (16 sources)Nitrofuran AntibacterialStart: 95-95-7939ukdu 100 mg by mouth once dailynitrofurantoin 100 mg, Oral, Daily Start Date: 11/24/23 Status: OrderedStart: 04-28-2023 End: 86-25-4271xorw 1 capsule by mouth once dailyNitrofurantoin Macrocrystal 100 mg capsule Discontinued 100 MG PO Daily April 28, 2023 12:00amFebruary 2024 10:07amNitrofurantoin 100 MG CAPS TAKE 1 CAPSULE AT BEDTIME. Quantity: 0 Refills: 0 Ordered: 08-May-2023 DO ActiveNitrostat (20 sources)Nitrate VasodilatorStart: 71-83-2431Xbaakpntv SubLingual, q5min Start Date: 11/24/23 Status: OrderedStart: 22-00-0952Cdwuj: 74-22-2970zmkk 1 tablet under the tongue every twenty-four hours as needednitroglycerin (Nitrostat) 0.[address] 0.4 mg under the tongue Daily as needed. 04/23/2023 ActiveNitrostat 0.4 MG as directed Sublingual Activeomeprazole 20 mg disintegrating oral tablet (2 sources)Proton Pump InhibitorStart: 25-87-6041zuqw 1 tablet by mouth once dailypantoprazole 40 mg delayed release oral tablet (1 source)Proton Pump InhibitorStart: 41-49-5452qsll 1 tablet by mouth once dailyPantoprazole 40 mg tablet,delayed release (DR/EC) Active 40 MG PO Daily May 30, 2025 12:00am Complies with drug therapypioglitazone 30 mg oral tablet (20 sources)Peroxisome Proliferator Receptor alpha Agonist, Peroxisome Proliferator Receptor gamma Agonist, ThiazolidinedioneStart: 03-18-2023 End: 32-09-5901fdcc 1 tablet by mouth once dailypioglitazone (Actos) 30 mg tablet Take 1 tablet (30 mg) by mouth once daily. 03/18/2023 Active sulfamethoxazole 400 mg / trimethoprim 80 mg oral tablet (2 sources)Dihydrofolate Reductase Inhibitor Antibacterial, Sulfonamide AntimicrobialStart: 09-20-2024 End: 57-44-0877Apsicqf 400 mg-80 mg Tab 1 tab(s), Oral, BID for 10 day(s), 20 tab(s), Refill(s) 0, [facility] [employer] #[facility], 170, cm, 09/20/24 11:31:00 EST, Height/Length Dosing, 68.8, kg, 09/20/24 11:31:00 EST, Weight Dosing Start Date: 09/20/24 Stop Date: 09/30/24 Status: Ordered Completed/Discontinued Medications MedicationDrug Class(es)DatesSig (Normalized)Sig (Original)atenolol 50 mg oral tablet (19 sources)beta-Adrenergic BlockerStart: 01-26-2025 End: 16-33-6793dygu 1 tablet by mouth once dailyAtenolol 50 mg tablet Discontinued 50 MG PO Daily January 26, 2025 12:00am May 19, 2025 10:26am FreeTextSi tablet Orally Once a day; Note: Source Status: Not- TakingundefinedPRN; Provider: Shabbir Luevano ( )Start: 06-07-2008 End: 95-61-7665jdaj 1 tablet by mouth once dailyAtenolol 50 mg Tablet Discontinued 50 MG PO Daily April 28, 2023 12:00am April 30, 2023 3: 30pmComment on above:Take one(1) tablet daily.buPROPion (6 sources)AminoketonebuPROPion HCl ER (SR) ActivebuPROPion HCl ER (SR) Not-TakingCalcium Carbonate / vitamin D3 (1 source)take 600 mg by mouth once dailyCALCIUM CARBONATE/VITAMIN D3 (CALCIUM 600 + D ORAL) Take 600 mg by mouth once daily. 0 ActiveComment on above:Take 600 mg by mouth once daily.cephalexin 500 mg oral capsule (15 sources)Cephalosporin AntibacterialStart: 01-17-2025 End: 73-64-8340ejlq 1 capsule by mouth three times dailyCephalexin 500 mg capsule Discontinued 500 MG PO Three times daily 05 01January 17, 2025 12:00am May 19, 2025 10:25amStart: 06-03-2024 End: 13-52-2243lysj 1 capsule by mouth in the morningcephalexin (Keflex) 500 MG capsule Indications: Acute cystitis without hematuria Take 1 capsule (500 mg) by mouth in the morning and 1 capsule (500 mg) before bedtime. Do all this for 5 days. 10 capsule 06/03/2024 06/08/2024 ActiveStart: 07-02-2023 End: 06-34-7125amor 1 tablet by mouth twice dailyCephalexin 500 mg tablet Discontinued 500 MG PO Twice daily 14 July 02, 2023 1:00am 2023 5:27pmStart: 94-08-2993zolq 1 tablet by mouth every twelve hoursCephalexin 500 MG 1 tablet Orally Two times a day for 7 days May, Active ciprofloxacin 250 mg oral tablet (8 sources)Quinolone AntimicrobialStart: 07-22-2024 End: 93-08-5167lnee 1 tablet by mouth every twelve hoursCiprofloxacin Hcl 250 mg tablet Discontinued 250 MG PO Every 12 hours 6 July 22, 2024 1:00am October 04, 2024 10:06amStart: 20-34-3404lxrx 1 tablet by mouth once daily Cipro 500 mg Tab 500 mg = 1 tab(s), Oral, Daily, Take 1 tablet the day before the procedure and 1 tablet after the procedure, # 2 tab(s), Refills(s) 0, Pharmacy: [facility] #[id number], 170, cm, 11/24/23 9:34:00 EDT, Height/Length Dosing, 66, kg, 11/24/23 9:34:00 EDT, Weight Dosing Start Date: 12/02/23 Status: Ordered citalopram 20 mg oral tablet (1 source)Serotonin Reuptake Inhibitortake 1 tablet by mouth once daily citalopram (CELEXA) 20 mg tablet Take 20 mg by mouth once daily. 0 ActiveComment on above:Take 20 mg by mouth once daily.doxycycline monohydrate 100 mg oral capsule (4 sources)Tetracycline-class DrugStart: 62-95-0934cenp 1 capsule by mouth every twelve hoursDoxycycline Monohydrate 100 MG 1 capsule Orally every 12 hrs for 5 days Aug, Not-Takingempagliflozin 10 mg oral tablet (9 sources)Sodium-Glucose Cotransporter 2 InhibitorStart: 01-26-2025 End: 45-47-1777mzju 1 tablet by mouth once dailyEmpagliflozin 10 mg tablet Discontinued 1 TAB PO Daily January 26, 2025 12:00am May 19, 2025 10:27am FreeTextSi tablet Orally Once a day; Note: Source Status: Not- TakingundefinedPRN; Provider: Shabbir Luevano ( )take 1 tablet by mouth every twenty-four hoursJardiance 10 MG 1 tablet Orally Once a day Not-Takingestrogens, conjugated (jail) 0.625 mg/ml vaginal cream (5 sources)EstrogenStart: 65-79-4856daeusjfjlq estrogens 0.625 mg/g vaginal cream with applicator See Instructions, 30 gm, Refill(s) 5,1 gm vaginal nightly x 3 weeks, then 3x per week thereafter, [facility] #72, 170, cm, 11:31:00 EST, Height/Length Dosing, 68.8, kg, 09/20/24 11:31:00 EST, Weight Dosing Start Date: 09/20/24 Status: OrderedFreeStyle Leo 14 Day Sensor - (3 sources)FreeStyle Leo 14 Day Sensor - as directed Not-TakingFreeStyle Leo 14 Day Sensor - as directed ActiveKetorolac (6 sources)Nonsteroidal Anti-inflammatory Drug, Cyclooxygenase InhibitorStart: 01-67-5411Ttvmgjl per 15 mg Jan, 30 mgMULTIVIT &MINERALS/FERROUS FUM (MULTI VITAMIN ORAL) (1 source)MULTIVIT &MINERALS/FERROUS FUM (MULTI VITAMIN ORAL) Take by mouth once daily. 0 ActiveComment on above:Take by mouth once daily.nitrofurantoin, macrocrystals 25 mg / nitrofurantoin, monohydrate 75 mg oral capsule (3 sources)Nitrofuran AntibacterialStart: 07-07-2024 End: 39-03-1067nwkj 1 capsule by mouth in the morningnitrofurantoin, macrocrystal-monohydrate, (Macrobid) 100 MG capsule Indications: Dysuria , Acute cystitis without hematuria Take 1 capsule (100 mg) by mouth in the morning and 1 capsule (100 mg) before bedtime. Do all this for 7 days. 14 capsule 07/07/2024 07/14/2024 ExpiredStart: 98-37-2752pcts 1 capsule by mouth every twelve hours Macrobid 100 MG 1 capsule with food Orally every 12 hrs for 7 day(s) Mar, ActiveOneTouch Verio (6 sources)OneTouch Verio Not-TakingOneTouch Verio Activephenazopyridine hydrochloride 100 mg oral tablet (9 sources)Start: 07-07-2024 End: 71-69-0585mcka 1 tablet by mouth three times daily as needed for muscle spasmsphenazopyridine (Pyridium) 100 MG tablet Indications: Dysuria , Acute cystitis without hematuria Take 1 tablet (100 mg) by mouth 3 (three) times a day as needed for bladder spasms for up to 2 days 6 tablet 07/07/2024 07/09/2024 ExpiredStart: 06-03-2024 End: 44-48-4484luwj 1 tablet by mouth three times daily as needed for muscle spasmsphenazopyridine (Pyridium) 200 MG tablet Indications: Acute cystitis without hematuria Take 1 tablet (200 mg) by mouth 3 (three) times a day as needed for bladder spasms for up to 2 days 6 tablet 06/03/2024 06/05/2024 Active Start: 11-07-0241fycy 1 tablet by mouth every eight hoursPyridium 200 MG 1 tablet after meals Orally Three times a day for 2 day(s) Aug, Not-Taking Start: 46-95-0312irdo 1 tablet by mouth every eight hoursPyridium 200 MG 1 tablet after meals Orally Three times a day for 2 day(s) Mar, Active pravastatin sodium 80 mg oral tablet (16 sources)HMG-CoA Reductase InhibitorStart: 04-28-2023 End: 54-89-6955wvgu 1 tablet by mouth once dailyPravastatin 80 mg tablet Discontinued 80 MG PO Daily April 28, 2023 12:00am April 30, 2023 3:30pmStart: 26-16-7943GVDRKZVKIWI 40 MG TAB Take one(1) tablet daily. 0 05/24/2009 ActiveComment on above:Take one(1) tablet daily.semaglutide 7 mg oral tablet (5 sources)Start: 12-15-2023 End: 19-53-7946qyra 1 tablet by mouth before mealtimesemaglutide (Rybelsus) 7 MG tablet Indications: 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) Take 1 tablet (7 mg) by mouth in the morning. Take before meals. 90 tablet 06/03/2024 Discontinuedsertraline 25 mg oral tablet (20 sources)Serotonin Reuptake InhibitorStart: 37-64-6095ttvm 2 tablets by mouth once dailysertraline (Zoloft) 25 MG tablet Indications: Recurrent major depressive disorder, in partial remission (HCC) (CMS/HCC) Take 2 tablets (50 mg) by mouth Daily 90 tablet 1 07/28/2024 ActiveStart: 61-71-0531dyea 2 tablets by mouth once dailysertraline (Zoloft) 25 MG tablet Indications: Recurrent major depressive disorder, in partial remission (HCC) (CMS/HCC) Take 2 tablets (50 mg) by mouth Daily 90 tablet 1 07/28/2024 ActiveStart: 06-17-2024 End: 69-17-2949gpcp 2 tablets by mouth once dailysertraline (Zoloft) 25 MG tablet Indications: Recurrent major depressive disorder, in partial remission (HCC) (CMS/HCC) Take 2 tablets (50 mg) by mouth Daily 90 tablet 1 06/17/2024 07/28/2024 Discontinued (Reorder)Start: 04-28-2023 End: 81-47-5304dglk 1 tablet by mouth once dailysertraline (Zoloft) 25 mg tablet Take 1 tablet (25 mg) by mouth once daily. 08/26/2023 Activeticagrelor 90 mg oral tablet (14 sources)Start: 04-30-2023 End: 69-52-3375ssmp 1 tablet by mouth twice dailyTicagrelor (Brilinta) 90 mg Tablet Discontinued 90 MG PO Twice daily 180 90 April 30, 2023 12:00am October 04, 2024 10:08amTriamcinolone (13 sources)CorticosteroidStart: 29-49-4368SWFMFNW - 10 mg Jan, 40 mg Start: 53-05-0949YBLWAAA - 10 mg May, 60 mgStart: 10-27-2008 TRIAMCINOLONE ACETONIDE 0.1 % TOPICAL CREAM Apply to psoriasis twice daily. 1pound jar 3 10/27/2008ctiveComment on above:Apply to psoriasis twice daily. VITAMIN E,DL-ALPHA TOCOPHEROL, (VITAMIN E, BULK, MISC) (1 source)take 400 [IU] by mouth twice dailyVITAMIN E,DL-ALPHA TOCOPHEROL, (VITAMIN E, BULK, MISC) Take 400 Units by mouth twice daily. 0 ActiveComment on above:Take 400 Units by mouth twice daily. Problems Active Problems Problem ClassificationProblemDateDocumented DateEpisodic/ChronicAcute myocardial infarction (3 sources)Acute myocardial infarction of inferior wall; Translations: [Acute myocardial infarction of other inferior wall, episode of care unspecified] ChronicAdjustment disorders (19 sources)Adjustment disorder with depressed mood; Translations: [Adjustment disorder with depressed mood]Onset: 833093-18-6357VrcdkguWyhfkui disorders (20 sources)Anxiety attack ; Translations: [Panic disorder [episodic paroxysmal anxiety]]Onset: 247150-43-0916SfvxwbgKtkoxew dysrhythmias (20 sources)Paroxysmal supraventricular tachycardia; Translations: [Supraventricular tachycardia]Onset: 919693-46-6943OxowiszQlahkqhe (19 sources)Bilateral cortical age-related cataract eyes; Translations: [Cortical age-related cataract, bilateral]Onset: 796841-57-1155Jywbmwv Conditions associated with dizziness or vertigo (20 sources)Dizziness; Translations: [Dizziness and giddiness]Onset: 12-15-2023 03-46-3634TjnqmoexRmpfovbw atherosclerosis and other heart disease (20 sources)Preinfarction syndrome; Translations: [Unstable angina]Onset: 907761-60-8394WnukjhbYriazzy on above:Problem List clean-up per request of Phys. EHR CmteDeficiency and other anemia (4 sources)Iron deficiency anemia; Translations: [Iron deficiency anemia, unspecified]32-62-9808XnwoqnmtOqnlneli mellitus with complications (20 sources)Type 2 diabetes mellitus with diabetic polyneuropathy; Translations: [Type 2 diabetes mellitus]Onset: 790524-71-7539VzkjwszApagunrx mellitus without complication (20 sources)Type 2 diabetes mellitus without complications; Translations: [Diabetes mellitus]Onset: 103371-60-8184TcdnsjzFzmolst on above:Problem List clean-up per request of Phys. EHR CmteDisorders of lipid metabolism (20 sources)Pure hypercholesterolemia, unspecified; Translations: [Hyperlipidemia, unspecified]Onset: 211924-30-4728ZpnzxzkHmuityu on above: Problem List clean-up per request of Phys. EHR CmteEsophageal disorders (6 sources)Gastroesophageal reflux disease; Translations: [Gastro-esophageal reflux disease without esophagitis]ChronicEsophageal disorders (2 sources)Esophageal disordersEssential hypertension (20 sources)Essential (primary) hypertension; Translations: [Hypertensive disorder]Onset: 023854-33-9998CogqubzOufjmrr on above:Problem List clean- up per request of Phys. EHR CmteGenitourinary symptoms and ill-defined conditions (20 sources)Mixed incontinence; Translations: [Incontinence]Onset: 11-24-2023 ChronicHeadache; including migraine (4 sources)Migraine; Translations: [Migraine, unspecified, not intractable, without status migrainosus]68-84-8335YdxxxnrBtavbxpia (6 sources)Influenza; Translations: [Influenza due to unidentified influenza virus with other respiratory manifestations]EpisodicMenopausal disorders (20 sources)Atrophic vaginitis; Translations: [Postmenopausal atrophic vaginitis]Onset: 16-14-5364KmuzuywNepl disorders (20 sources)Major depressive disorder, single episode, unspecified; Translations: [Depressive disorder]Onset: hronic Osteoarthritis (1 source)Primary osteoarthritis, left ankle and foot; Translations: [PRIMARY OSTEOARTHRITIS LT ANK FOOT]Onset: 61-21-1297UjbmquvSykks connective tissue disease (4 sources)Pain in upper limb; Translations: [Pain in right arm]10-04-2024 EpisodicOther connective tissue disease (1 source)Pain in right arm; Translations: [Pain in limb]70-45-1472PvzgxmbuTwido connective tissue disease (3 sources)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; Translations: [Palmar fascial fibromatosis [Dupuytren]]12-60-5080ExaydoawUtzpw connective tissue disease (1 source)Palmar fascial fibromatosis [Dupuytren]; Translations: [Contracture of palmar fascia]62-08-4150NwjpqwnzWczxx connective tissue disease (2 sources)Pain of bilateral upper limbs; Translations: [Pain in right arm] 86-98-6285XfpovxlgQoxjl diseases of bladder and urethra (3 sources)Male urethral stricture; Translations: [Unspecified urethral stricture, male, unspecified site]Onset: 05-65-8151CvkdfmmcSingg ear and sense organ disorders (19 sources)Sensorineural hearing loss, bilateral; Translations: [Sensorineural hearing loss, bilateral]Onset: 335254-69-4673DjgzdrmMyxuw female genital disorders (1 source)Noninflammatory disorder of the vagina; Translations: [Other specified noninflammatory disorders ofvagina]Onset: 07-11-8250BewzegdyTffsz inflammatory condition of skin (17 sources)Psoriasis; Translations: [Other psoriasis]Onset: 04-06-2009 87-35-1873EfrukneKyanl inflammatory condition of skin (19 sources)Plaque psoriasis; Translations: [Psoriasis vulgaris]Onset: 010490-99-3656GiiwrntKqdtm inflammatory condition of skin (16 sources)Generalized psoriasis; Translations: [Psoriasis, unspecified]Onset: 492984-17-4874ArdjgdoDanow nervous system disorders (5 sources)Other specified mononeuropathies of left lower limb; Translations: [OTH SPEC MONONEUROPATH LT LOW LIMB]Onset: 35-06-6635VoqqtztXnpht nervous system disorders (1 source)Other specified mononeuropathies; Translations: [OTHER SPECIFIED MONONEUROPATHIES]Onset: 00-43-0085DeyltdaBdiwl nervous system disorders (4 sources)Other chronic pain; Translations: [OTHER CHRONIC PAIN]Onset: 51-95-4030KspztemZacpi nervous system disorders (4 sources)Lesion of lateral popliteal nerve, left lower limb; Translations: [LESION LAT POP NERVE LT LOWER LIMB]Onset: 71-51-8305AspbcmaCrhwu nervous system disorders (1 source)Lesion of lateral popliteal nerve, unspecified lower limb; Translations: [LESION LAT POP NERVE UNS LOWER LIMB]Onset: 30-70-9307KwuhodkCyiiq nervous system disorders (1 source)Unspecified mononeuropathy of left lower limb; Translations: [UNS MONONEUROPATHY LEFT LOWER LIMB]Onset: 75-80-9038EkmdnbxQffds nervous system disorders (19 sources)Difficulty walking; Translations: [Difficulty in walking, not elsewhere classified]Onset: 308931-69-0777GujnyjwEzrlb non-traumatic joint disorders (5 sources)Pain in left ankle and joints of left foot; Translations: [PAIN IN LEFT ANKLE]Onset: 23-07-1796YywkgkwuLujez screening for suspected conditions (not mental disorders or infectious disease) (20 sources)EKG ST segment changes; Translations: [Abnormal electrocardiogram [ECG] [EKG]]Onset: 522168-01-7017DnmssylhEcwfdbv on above:Problem List clean-up per request of Phys. EHR CmteOtitis media and related conditions (1 source)Otitis media, unspecified, right earEpisodicSpondylosis; intervertebral disc disorders; other back problems (13 sources)Sciatica; Translations: [Sciatica, right side]Onset: 10-22-2022 86-65-1670KfburchjJwmedwa and strains (4 sources)Strain of muscle(s) and tendon(s) of peroneal muscle group at lower leg level, left leg, subsequentencounter; Translations: [STRAIN M AND T PERONEAL LOW LT LEG SUBS]Onset: 99-27-7466McjcvpnxZmogpnsgi-related disorders (20 sources)Tobacco dependence in remission; Translations: [Nicotine dependence, cigarettes, in remission]Onset: 837618-26-0482HreqyvqRcgrtninymgr (16 sources)Patient on antidepressant monitoring planOnset: 807131-16-3766 Unclassified (16 sources)Baseline PHQ-9Onset: 844123-41-0177 Past or Other Problems Problem ClassificationProblemDateDocumented DateEpisodic/ChronicAcute and unspecified renal failure (1 source)Acute kidney failure, unspecified; Translations: [ACUTE KIDNEY FAILURE UNSPECIFIED]Onset: 02-92-3018FmxssiamZczdvpundqnllyov hemorrhage (1 source)Melena; Translations: [MELENA]Onset: 15-00-9730LysmhfwbLkyseogdxrpou symptoms and ill-defined conditions (20 sources)Dysuria; Translations: [Microalbuminuria]Onset: 03-27-2021 Resolved: 59-15-4234JlrkdyikHmmdrnrkde infection (1 source)Infectious gastroenteritis and colitis, unspecified; Translations: [INF GASTROENTERITIS AND COLITISUNS]Onset: 20-83-6610NxdtnvuxWpyp disorders (16 sources)Mood disordersOnset: 12-15-2023 Resolved: 135061-01-3023Yqglisyrvtt chest pain (19 sources)Chest pain; Translations: [Chest pain, unspecified]Onset: 04-21-2023 Resolved: 123998-07-5342ChdtvkcrHalcr aftercare (1 source)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; Translations: [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 DX]Onset: 44-80-7261NuzuxwqzPprwx aftercare (1 source)Other ocean transportation intermediary (current) drug therapy; Translations: [OTH MCC CURRENT DRUG THERAPY]Onset: 87-08-1028YbwpietxBhxap bone disease and musculoskeletal deformities (1 source)Other specified disorders of bone density and structure, left ankle and foot; Translations: [OTH D/O BONE DEN STRUCT LT ANK FOOT]Onset: 09-04-2022 EpisodicOther circulatory disease (1 source)Other specified symptoms and signs involving the circulatory and respiratory systems; Translations:[OTH SPEC SX SIGNS INVLV CIRC RS]Onset: 97-28-8984QppbuwnwPfoax connective tissue disease (4 sources)Pain in left foot; Translations: [PAIN IN LEFT FOOT]Onset: 09-23-2022 EpisodicOther diseases of bladder and urethra (18 sources)Urethral stricture; Translations: [Unspecified urethral stricture, male, unspecified site]Onset: 206630-75-4803HigqmuafKpetv ear and sense organ disorders (19 sources)Bilateral tinnitus; Translations: [Tinnitus, bilateral]Onset: 561286-63-0621GqwdblukKtpgx non-traumatic joint disorders (1 source)Other specified joint disorders, left ankle and foot; Translations: [OTHER SPEC JOINT D/O LT ANKLE FOOT]Onset: 79-58-4723KprkkzjwSlkxmwma codes; unclassified (1 source)Other specified postprocedural states; Translations: [OTH SPECIFIED POSTPROCEDURAL STATES]Onset: 69-00-7414ZbstmtlqUprcmxlb codes; unclassified (20 sources)Body mass index 20-24 - normal; Translations: [Body mass index (BMI) 23.0-23.9, adult]Onset: 740720-42-6189XpqdkdndRhctelqf codes; unclassified (20 sources)Tobacco user; Translations: [Tobacco use]Onset: 039841-96-0732 EpisodicScreening and history of mental health and substance abuse codes (20 sources)Ex-tobacco user; Translations: [Personal history of nicotine dependence]Onset: 862166-34-6867EsomjaykBvyxida on above:February 28, 2023 - 1ppd;Problem List clean-up per request of Phys. EHR CmteSepticemia (except in labor) (4 sources)Sepsis, unspecified organism; Translations: [Severe sepsis without septic shock]Onset: 43-44-0221ZkqxyzgwHmcxactwfupu (1 source)Onset: 885852-40-1626Mmlxqeb tract infections (20 sources)Acute cystitis with hematuria; Translations: [Acute cystitis without hematuria]Onset: 04-19-2022 Resolved: 31-13-9982Exvjqpwv Results Test NameValueInterpretationReference RangeFacilityBasophils Auto (Bld) [#/Vol] Ordered By: Tc Craig on 93-02-1522Rilhujafr (Bld) [#/Vol]0.1 10 3/uL0.0-0.1 [facility] CenterBasophils/100 WBC Auto (Bld)Ordered By: Tc Craig on 52-11-6687Fiahdzqxq/100 WBC (Bld)0.6 %0.2-2.0[facility] CenterEosinophils/100 WBC Auto (Bld)Ordered By: Tc Craig on 89-12-0690Fzanzxxubhh/100 WBC (Bld)0.8 %Low0.9-7.0[facility] CenterErythrocyte distribution width Auto (RBC) [Ratio]Ordered By: Tc Craig on 26-37-7748Iplupbtoold distribution width (RBC) [Ratio]13.5 %11.0-15.0 [facility] CenterFibrin D-dimer [Presence] in Platelet poor plasma by Latex agglutinationOrdered By: Charlotte Jansen on 98-06-9622Rgnenw D-dimer LA Ql (PPP)1.18 mg/L FEUCritically high<=0.59[facility] CenterComment on above:RESULTS CALLED TO DR. KIMBER CRAIG at 1334Increases in D-Dimer concentration observed withthromboembolic events can be variable due to localization,size, and age of the thrombus. Therefore, a thromboembolicevent cannot be diagnosed with certainty on the basis of thereference range. D-Dimers may also be elevated for a varietyof disorders including advanced age, , coronarydisease, cancer,liver disease, infection, inflammation,hematoma, DIC, trauma, post-surgery, diabetes, thrombolyticor anticoagulant therapy, stress, and generalizedhospitalization.Globulin Calc (S) [Mass/Vol]Ordered By: Tc Craig on 12-63-1143Ydehlwbl (S) [Mass/Vol]4.1 g/dL [facility] CenterGlomerular filtration rate (GFR) estimation in non- AmericanOrdered By: Tc Craig on 35-85-0800UFF/1.73 sq M.predicted among non-blacks MDRD (S/P/Bld) [Vol rate/Area]mL/min/{1.73_m2}>=60 mL/min/1.73m 2FCleveland ClinicHematocrit Auto (Bld) [Volume fraction]Ordered By: Tc Craig on 66-63-8851Rtyhybwwyh (Bld) [Volume fraction]38.9 %36.0-48.0[facility] CenterHemoglobin [Mass/volume] in BloodOrdered By: Tc Craig on 60-11-2670Cnvdecasuk (Bld) [Mass/Vol]12.7 g/dL12.0-16.0[facility] CenterLaboratory - Chemistry and Chemistry - challengeOrdered By: Tc Craig on 05-12-2025 Albumin [Mass/Vol]3.7 g/dL3.4-5.0[facility] CenterALP [Catalytic activity/Vol]78 U/T53-627AbrepwjotCommunity Regional Medical CenterALT [Catalytic activity/Vol]28 U/S46-98ZssmwjnqnCommunity Regional Medical CenterAST [Catalytic activity/Vol]17 U/U10-62XvpphnvncCommunity Regional Medical CenterBilirubin [Mass/Vol]0.3 mg/dL0.2-1.0[facility] CenterCalcium [Mass/Vol]9.3 mg/dL 8.5-10.1FCleveland ClinicChloride [Moles/Vol]105 mmol/L98-107 [facility] CenterCO2 [Moles/Vol]25.9 mmol/L21.0-32.0[facility] CenterCreatinine [Mass/Vol]0.84 mg/dL0.55-1.02[facility] CenterGFR/1.73 sq M.predicted MDRD (S/P/Bld) [Vol rate/Area] mL/min/{1.73_m2}>=60 mL/min/1.73m 2FCleveland ClinicGlucose [Mass/Vol]116 mg/rVZowg49-687BvwmhxpklCommunity Regional Medical CenterPotassium [Moles/Vol]4.7 mmol/L3.5-5.1FCleveland ClinicProtein [Mass/Vol] 7.8 g/dL6.4-8.2FAccess Hospital Daytonodium [Moles/Vol]142 mmol/L 136-145[facility] CenterUrea nitrogen [Mass/Vol]17.0 mg/dL 7.0-18.0[facility] CenterUrea nitrogen/Creatinine [Mass ratio] 20.2 mg/mgCommunity Regional Medical CenterLaboratory - Hematology and Cell countsOrdered By: Tc Craig on 03-93-8235Eltpgxjn granulocytes/100 WBC (Bld) 0.5 %0.0-0.5FCleveland ClinicLeukocytes [#/volume] corrected for nucleated erythrocytes in Blood by Automated counOrdered By: Tc Craig on 82-81-6667XIV corrected for nucl RBC Auto (Bld) [#/Vol]10.6 10 3/uL4.0-11.0 [facility] CenterLymphocytes Auto (Bld) [#/Vol]Ordered By: Tc Craig on 05-48-6621Lhrzufnhagh (Bld) [#/Vol]1.4 10 3/uL1.2-3.8[facility] CenterLymphocytes/100 WBC Auto (Bld)Ordered By: Tc Craig on 05-55-8171Suhnetluwho/100 WBC (Bld)13.1 %Low20.5-60.0[facility] HospitalH Auto (RBC) [Entitic mass]Ordered By: Tc Craig on 23-75-4782QHQ (RBC) [Entitic mass]29.5 pg26.7-34.0[facility] CenterMCHC Auto (RBC) [Mass/Vol]Ordered By: Tc Craig on 08-82-6666UFPB (RBC) [Mass/Vol]32.6 g/dL29.9-35.2FCleveland ClinicMCV Auto (RBC) [Entitic vol]Ordered By: Tc Craig on 41-96-2677LSP (RBC) [Entitic vol]90.3 fL81.0-99.0[facility] CenterMonocytes Auto (Bld) [#/Vol]Ordered By: Tc Craig on 78-37-8424Llleyplwo (Bld) [#/Vol]0.8 10 3/uL 0.3-0.8[facility] CenterMonocytes/100 WBC Auto (Bld)Ordered By: Tc Craig on 55-15-0933Zhsfujodz/100 WBC (Bld)7.5 %1.7-12.0[facility] CenterNeutrophils Auto (Bld) [#/Vol]Ordered By: Tc Craig on 82-47-7660Yrivwrsbtdh (Bld) [#/Vol]8.2 10 3/uLHigh1.4-6.5FCleveland ClinicNeutrophils/100 WBC Auto (Bld)Ordered By: Tc Craig on 70-50-2407Hvdtpqvllxs/100 WBC (Bld)77.5 %High43.0-75.0[facility] CenterNo Panel InformationOrdered By: Charlotte Jansen on 16-86-9649Wpljdqok I High Sensitivity6.6 pg/mL4.0-51.3FCleveland ClinicComment on above:CUT-OFF POINTS HAVE BEEN ESTABLISHED BASED ON THE FOURTHUNIVERSAL DEFINITION OF MYOCARDIAL INFARCTION. THE UPPERREFERENCE LIMIT (URL) OF TROPONIN, DEFINED THE 99THPERCENTILE OF cTnI DISTRIBUTION IN A REFERENCE POPULATION,HAS BEEN CONFIRMED THE DECISION THRESHOLD FOR MIDIAGNOSIS.99TH PERCENTILE = 51.4 PG/MLNOTE: HIGH-SENSITIVITY TROPONIN ASSAY IS NOT INTENDED TO BEUSED IN ISOLATION BUT SHOULD BE INTERPRETED IN CONJUNCTIONWITH OTHER DIAGNOSTIC AND CLINICAL INFORMATION.No Panel InformationOrdered By: Tc Craig on 88-92-4403Agisapqbrkv # (Auto)0.1 10 3/uL0.0-0.7FCleveland ClinicImmature Granulocyte # (Auto)0.05 10 3/uLHigh0.00-0.03[facility] CenterPlatelet mean volume Auto (Bld) [Entitic vol]Ordered By: Tc Craig on 41-37-8655Tysbqynq mean volume (Bld) [Entitic vol]10.4 fL 9.5-13.5FCleveland ClinicPlatelets Auto (Bld) [#/Vol]Ordered By: Tc Craig on 42-70-5354Mibgndpjn (Bld) [#/Vol]312 10 3/nK363-729GaqywfmzoCommunity Regional Medical CenterRBC Auto (Bld) [#/Vol]Ordered By: Tc Craig on 37-48-1252IQU (Bld) [#/Vol]4.31 10 6/uL4.20-5.40[facility] Hospitalerum or plasma albumin/globulin mass ratioOrdered By: Tc Craig on 79-95-6626Jyzdlsy/Globulin [Mass ratio]0.9 {ratio}[facility] Hospitalerum or plasma anion gap determinationOrdered By: Tc Craig on 93-39-1620Ifdch gap [Moles/Vol]15.8 mmol/LFCleveland Clinic Laboratory - Chemistry and Chemistry - challengeon 95-87-0800Llogwbpfc Ql (U) NegativeCommunity Regional Medical CenterGlucose (U) [Mass/Vol]NegativeCommunity Regional Medical CenterKetones Ql (U)traceCommunity Regional Medical CenterpH (U)6.0 [pH][facility] Hospitalpecific gravity (U) [Rel density] >1.030[facility] CenterLaboratory - Specimen informationon 71-72-2133Jsfclfrife (U)clearCommunity Regional Medical CenterColor (U)yellow [facility] CenterLaboratory - Urinalysison 86-85-1509Woykpkwfh esterase Test strip Ql (U)traceCommunity Regional Medical CenterNitrite Ql (U) NegativeCommunity Regional Medical CenterProtein Ql (U)100mg/dLCommunity Regional Medical CenterNo Panel Informationon 06-35-7882Ffzbw Occult Bloodsmall [facility] CenterUrine Urobilinogen0.2EU/dLCommunity Regional Medical CenterUrine Cultureon 55-41-4883Qxkvmvtq identified Cx Nom (U)<9,000 colonies/ml mixed bacterial skin contaminants 2 Days PERFORMED BY: [facility] [address] [place] [address] PATHOLOGIST COAL CONVEYOR OPERATOR DAVE APARICIO M.D.[facility] Physician GroupComment on above: Performed By: #### CUU #### [facility] [address]Urine cultureOrdered By: Shu Painter on 01-17-2025 Bacteria identified Cx Nom (U)Urine cultureCommunity Regional Medical CenterC Urineon 31-74-1392Mzphzseh identified Cx Nom (U)Microbiology PROCEDURE: Urine Culture [R1] SOURCE: U CleanCatch BODY SITE: COLLECTED DATE/TIME: 10/07/2024 12:08 EST RECEIVED DATE/TIME: 10/07/2024 18:04 EST START DATE/TIME: 10/07/2024 18:04 EST FREE TEXT SOURCE: CHLOÉ PIZANO PA-C, PA-C, CHLOÉ Anne FINAL REPORTS Final Report [] Verified Date/Time: 10/09/2024 07:53 EST 2,000 cfu/ml Mixed skin contaminants Performing Locations R1: This test was performed at: [facility], [address] [place] [address], [address]- , , EysbkvZxhiteKettering Health Washington TownshipComment on above:Performed By: #### [id number] #### [facility] [address] [place] [address]H Urineon 96-81-2330Gwrwpbaa identified Cx Nom (U)Microbiology PROCEDURE: Urine Culture [R1] SOURCE: U Random BODY SITE: COLLECTED DATE/TIME: 09/20/2024 12:34 EST RECEIVED DATE/TIME: 09/20/2024 18:13 EST START DATE/TIME: 09/20/2024 18:13 EST FREE TEXT SOURCE: JERICA MOREIRA, CHLOÉ PIZANO PA-C, CHLOÉ Anne FINAL REPORTS Final Report [] Verified Date/Time: 09/22/2024 10:49 EST >100,000 cfu/ml Klebsiella pneumoniae SUSCEPTIBILITY RESULTS LEGEND: S=Susceptible, N/R=Not Reported, Blank=Data not available, [...] Locations R1: This test was performed at: [facility], [address] [place] [address], [address]- , , TwspqnUhszhmKettering Health Washington TownshipComment on above:Performed By: #### [id number] #### [facility] [address] [place] [address]Euvgsly Office/Clinic Noteon 38-68-2216Tkbjuvp Office/Clinic NoteUrology Office/Clinic Note Chief Complaint urinary frequency, nocturia [...] 5, 1 gm vaginal nightly x 3 weeks,then 3x per week thereafter, FERTILE EARTH SYSTEMS #72, 170, cm, 09/20/24 11:31:00 EST, Height/Length Dosing, 68.8, kg, 09/20/24 11:31:00 EST, Weight Dosing sulfamethoxazole-trimethoprim, 1 tab(s), Oral, BID for 10 day(s), 20 tab(s), Refill(s) 0, FERTILE EAR[employer] SYSTEMS #72, 170, cm, 09/20/24 11:31:00 EST, Height/Length Dosing, 68.8, kg, 09/20/24 11:31:00EST, Weight Dosing 05163 Measure Post Void residual urine and/or bladder capacity by US- non-imaging Body Mass Index (BMI) documented 3008F Current tobacco smoker 1034F Depression Screening Negative 3352F E&M of Est. Patient Moderate 30-39 Min 25955 Influenza immunization status assessed 1030F Medication list documented in medical record 1159F Most recent diastolic blood pressure <80 mm Hg 3078F Review of all meds by a prescribing practitioner or clinical pharmacist documented in EHR 1160F Systolic BP 130-139 mm Hg (Most Recent) 3075F Urine Culture Urnls Dip Stick Auto w/o Microscopy POC 47739 Follow-up With When Contact Information JERICA MOREIRA, CHLOÉ E, URL In 1 month [address] [place] [address] Additional Instructions: Patient Education Overactive Bladder, Adult Problem List/Past Medical History Ongoing Atrophic vaginitis Cardiovascular disease Depressed Diabetes HTN (hypertension) Hyperlipidemia Mixed incontinence urge and stress Urethral stricture Historical No qualifying data Procedure/Surgical History Carotid artery stent (04/24/2023), Colonoscopy (01/22/2022), Breast lumpectomy (05/04/2017), Ankle,Cardiac ablation system. Medications aspirin 81 mg oral [...] Patient Refuses SARSCoV2 mRNA(tozinamer-tr (more content not included)...[facility] TownshipComment on above:Result Comment: Electronically Signed By: JERICA MOREIRA, CHLOÉ Anne\.br\Date and Time Signed: 09/20/2512:32 ESTOccult blood x 1, stoolon 16-38-5307Tzoyfaipen (Stl)[facility] CenterInternal identifier for [id number] HealthcareLower GI hemoglobin IA Ql (Stl)SEE NOTENOSt. Louis Children's HospitalComment on above: Not Detected Specimen source Nom (Unsp spec)[facility] HospitalSTATUSG[facility]rie [facility] FASTING: UNKNOWNQUESTPerforming Organization Information Site ID: QPT Name: [employer] [facility] Address: [address] [place] [address], [address] [place] [id number] Director: Behzad Marley MDAtrium Health MercyLaboratory - Chemistry and Chemistry - challengeon 44-62-2414Exkwcqodv Ql (U)[facility] HospitalGlucose (U) [Mass/Vol]100 mg/dLCommunity Regional Medical Center Ketones Ql (U)NegativeCommunity Regional Medical CenterpH (U)5.5 [pH][facility] Hospitalpecific gravity (U) [Rel density]1.030[facility] Medical CenterUrobilinogen (U) [Mass/Vol]0.2 mg/dLCommunity Regional Medical CenterLaboratory - Specimen informationon 90-63-0849Ktvdmcrryt (U)cloudy [facility] CenterColor (U)yellowCommunity Regional Medical CenterLaboratory - Urinalysison 22-32-3135Yzxvdkqns esterase Test strip Ql (U) NegativeCommunity Regional Medical CenterNitrite Ql (U)NegativeCommunity Regional Medical CenterProtein Ql (U)30[facility] CenterNo Panel Informationon 78-12-8399Vnebi Occult Bloodtrace-intactCommunity Regional Medical CenterUrine Cultureon 58-77-9524Fteuhten identified Cx Nom (U)30,000 colonies/ml mixed bacterial skin contaminants 2 Days PERFORMED BY: [facility] [address] [place] [address] PATHOLOGIST COAL CONVEYOR OPERATOR RICA HODGE M.D.NormalThe [facility] Physician GroupComment on above: Performed By: #### CUU #### [facility] [address] [place] [address] USAUrine cultureOrdered By: Ciera Saldana on 12-08-1675Yqegyija identified Cx Nom (U)Urine cultureCommunity Regional Medical CenterLaboratory - Chemistry and Chemistry - challengeon 66-80-1613Yfkhoihoq Ql (U)Negative NegativeNOMS HealthcareGlucose [Mass/Vol]NegativeNegativeNOMS HealthcareKetones Ql (U)NegativeNegativeNOMS HealthcarepH (U)6 [pH]5.0 - 6.0N[facility] Healthcare Specific gravity (U) [Rel density]1.031.001 - 1.035NOMS HealthcareLaboratory - Hematology and Cell countson 69-77-1645Ppnyrkikto Ql (U)NegativeNegativeNOMS HealthcareLaboratory - Urinalysison 04-44-4209Waksbux Ql (U)NegativeNegativeNOMS HealthcareProtein Ql (U)TraceNegativeNOMS HealthcareNo Panel Informationon 57-10-0259Oewummlhntgmzk and review of laboratory resultsAbnormalNOMS Healthcare LEUKOCYTES3+NegativeNOMS HealthcareUROBILINOGEN1+0.2 - 1.0NOMS HealthcareNOMS HealthcareNo Panel Informationon 96-82-6605SOTFACFSKYRJG CYZQGKWJ2GEBJ HealthcareACINETOBACTER BAUMANIINot detectedNOMS HealthcareCANDIDA ALBICANS, PARAPSILOSIS, IMEAMGFIMA2PJCZ HealthcareCANDIDA ALBICANS, PARAPSILOSIS, TROPICALISNot detectedNOMS HealthcareCANDIDA BRMFMDBR9NMBD HealthcareCANDIDA GLABRATANot detectedNOMS HealthcareCANDIDA TFONRP0FRZD HealthcareCANDIDA KRUSEI Not detectedNOMS HealthcareCITROBACTER TAUPWQMJ8VAFZ HealthcareCITROBACTER FREUNDIINot detectedNOMS HealthcareENTEROBACTER AEROGENES, QNDYEIN3YHBC HealthcareENTEROBACTER AEROGENES, CLOACAENot detectedNOMS HealthcareENTEROCOCCUS FAECALIS, AOGYHFP4QEBE HealthcareENTEROCOCCUS FAECALIS, FAECIUMNot detectedNOMS HealthcareERMB, C; MEFA25.531AbnormalNOMS HealthcareERMB, C; MEFADetected AbnormalNOMS HealthcareESCHERICHIA JTMB9GSSD HealthcareESCHERICHIA COLINot detectedNOMS HealthcareInterpretation and review of laboratory resultsAbnormal NOMS HealthcareKLEBSIELLA PNEUMONIAE, FMRKTNK5ZIDA HealthcareKLEBSIELLA PNEUMONIAE, OXYTOCANot detectedNOMS HealthcareMORGANELLA CAQHQDZX7YBXW HealthcareMORGANELLA MORGANIINot detectedNOMS HealthcarePROTEUS MIRABILIS, MZXTUAVP5ALVN HealthcarePROTEUS MIRABILIS, VULGARISNot detectedNOMS Healthcare PSEUDOMONAS HZMQCHAIIS3QBHX HealthcarePSEUDOMONAS AERUGINOSANot detectedNOMS HealthcareSERRATIA EEIDFLMXBF2JMLV HealthcareSERRATIA MARCESCENSNot detectedNOMS HealthcareSTAPHYLOCOCCUS AYXVBH4PSMJ HealthcareSTAPHYLOCOCCUS AUREUSNot detected NOMS HealthcareSTAPHYLOCOCCUS EPIDERMIDIS, HAEMOLYTICUS, LUGDUNENSIS, SAPROPHYTICUS (CVEVG2CPYU HealthcareSTAPHYLOCOCCUS EPIDERMIDIS, HAEMOLYTICUS, LUGDUNENSIS, SAPROPHYTICUS (URINANot detectedNOMS HealthcareSTREPTOCOCCUS AGALACTIAE (GROUP B STREP)25.738AbnormalNOMS HealthcareSTREPTOCOCCUS AGALACTIAE (GROUP B STREP)DetectedAbnormalNOMS HealthcareSTREPTOCOCCUS PYOGENES (GROUP A STREP)0NOMS HealthcareSTREPTOCOCCUS PYOGENES (GROUP A STREP)Not detectedNOMS HealthcareTET B, TET M24.828AbnormalNOMS HealthcareTET B, TET MDetectedAbnormal NOMS HealthcareNOMS HealthcareLaboratory - Chemistry and Chemistry - challengeon 06-12-1055Sieslhqpq Ql (U)NegativeNOMS HealthcareGlucose [Mass/Vol]NegativeNOMS HealthcareKetones Ql (U)NegativeNOMS HealthcarepH (U)6.5 [pH][facility] Specific gravity (U) [Rel density]1.02NOMS HealthcareUrobilinogen (U) [Mass/Vol] 0.2 mg/dLNONY HealthcareLaboratory - Hematology and Cell countson 06-03-2024 Hemoglobin Ql (U)NegativeNOMS HealthcareLaboratory - Urinalysison 06-03-2024 Nitrite Ql (U)NegativeNOMS HealthcareProtein Ql (U)100mgNONY HealthcareNo Panel Informationon 73-09-7646Cnrqmzvlhigoly and review of laboratory resultsAbnormal NOMS HealthcareLEUKOCYTESNegativeNOMS HealthcareNOMS HealthcareXR ABDOMEN 2 VIEW on 20-08-0261CK ABDOMEN 2 VIEWFINDINGS: Moderate to large volume of colon stool tapering through the descending colon. No mass effect or free air. No obstruction. No biliary or urinary tract stones. Blunted right cardiophrenic angle probable benign fatty etiology within the epicardial space. IMPRESSION: 1. Moderate to large volume of colon stool, no obstruction or mass effect. TRANSCRIBED BY: ELECTRONICALLY SIGNED BY: Yayo AgueroNot AvailableConsent for Procedure/Surgeryon 71-81-4157Minzsdk for Procedure/Surgery [id number]#1.00TIFCleveland Clinic FoundationConsent for Treatmenton 65-42-1267Msxmfeu for Treatment [id number]#1.00TIFCleveland Clinic FoundationIntraOperative Documentson 98-55-0208TbrxcSjincozyh Documents [id number]#1.00TIFCleveland Clinic FoundationMain OR Intraoperative Recordon 16-76-7191Spbl OR Intraoperative Record IntraOp Document Type FTURO Summary Primary Physician: Joe CARTAGENA MD Finalized Date/Time: 12/29/23 11:22:14 Pt. Name: COLTONANN MARIE/Sex: 1960 Female Med Rec #: [id number] Physician: Joe CARTAGENA MD Financial #: [id number] Pt. Type: O Room/Bed: / Admit/Disch: 12/29/23 [...] Laura C Role Performed Surgeon - Primary Tie Tamper - Primary Scrub - Primary Time In [...] Position Verified Availability Equipment, Medication Time Out Joe CARTAGENA MD, Verified (If Participants Joleen Orellana, Applicable) Paulette Geronimo Time Out Complete 12/29/23 11:12:00 Allergies Reviewed? Yes Allergies Reviewed Self/Patient With Body Position Frog Legged Prep Area VAGINA Prep Agents Betadine Scrub and Solution Skin. Condition Intact, [place], Warm, and Dry Additional None Specimens Collected [...] Joleen Orellana 12/29/23 11:22 Joleen Orellana 12/29/23 11:22[facility] Preoperative Recordon 61-69-3624Hqkp OR Preoperative RecordHolding Area Document Type FTURO Summary Primary Physician: Joe CARTAGENA MD Finalized Date/Time: 12/29/23 10:40:32 Pt. Name: ANN MARIE SEGURA/Sex: 1960 Female Med Rec #: [id number] Physician: Joe CARTAGENA MD Financial #: [id number] Pt. Type: O Room/Bed: / Admit/Disch: 12/29/23 [...] or her perioperative plan of care The patient'sright to privacy is maintained Surgery Checklist FTURO [...] RN 12/29/23 10:36 Rajni Pratt RN 12/29/23 10:40[facility] TownshipOperative Reporton 20-53-0186Lyqjbruky ReportPatient: ANN MARIE SEGURA Age: 63 years Sex: Female : [...] urine. The Urethra was dilated to: 30 Turkish w/ sounds. Devices Implanted: None. Removal: Cystoscope is removed, The patient tolerated it well. Postoperative Information Discharge: Patient is discharged home with antibiotic coverage, Follow up arranged.[facility] TownshipComment on above:Result Comment: Electronically Signed By: MITZI UNGER, Joe SilvaDate and Time Signed: 12/29/23 11:25 EDTOutpatient Surgery Discharge Instructionon 2023 Outpatient Surgery Discharge Instruction [id number]#1.00[facility] CenterPre-Certification Formon 21-31-7719Xwv-Certification Form [id number]#1.00[facility] CenterPhysician Referralon 04-11-4739Ztzuolrch Referral [id number]#1.00[facility]stowncreenson 30-57-0439Mfqaqzj [id number]#1.00[facility] CenterPatient Educationon 70-51-8715Bjskkyr EducationObstetrics and Gynecology Overactive Bladder, Adult Overactive bladder [...] as stroke, dementia, Parkinson's disease, or multiple sclerosis(MS). ? Eat or drink alcohol, spicy food, [...] health care provider. General instructions ? Take tlay-euq-afdqgsp and prescription medicines only as told by [...] care provider monitor yo (more content not included)...[facility] TownshipActivated partial thromboplastin time (aPTT) in platelet poor plasma by coagulation aOrdered By: Emily Grimes on 76-93-1408sCBS Coag (PPP) [Time]29.6 s25.1-36.5FCleveland ClinicComment on above:A hematocrit value greater than 55% may lead to inaccurate results in coagulation testing. Patientshaving hematocrit values >55% require a special collection tube for coagulation studies. Please contact the laboratory at [phone] for redraw instructions.Automated erythrocytes count in urine sediment (number/area)Ordered By: Emily Grimes on 52-49-7608MYC Auto (Urine sed) [#/Area]None seen [HPF]0-4[facility] Automated leukocytes count in urine sediment (number/area)Ordered By: Emily Cornelio on 11-48-2964BJT Auto (Urine sed) [#/Area]5-9 [HPF]0-4FCleveland ClinicAutomated urine hyaline casts count (number/volume) Ordered By: Emily Perdomokraig on 15-01-4121Njyhucw casts Auto (U) [#/Vol]50-100 [LPF]0-1FCleveland ClinicAutomated urine sediment calcium oxalate crystal count by microscopy (number/high powOrdered By: Emily Perdomobobbyore on 73-54-9510Mfbilgk oxalate crystals LM.HPF (Urine sed) [#/Area]2+ [HPF] [facility] CenterBasophils Auto (Bld) [#/Vol]Ordered By: Emily Perdomokraig on 70-68-3161Yzjfkzmhy (Bld) [#/Vol]0.1 10*3/uL0.0-0.2FCleveland ClinicBasophils/100 WBC Auto (Bld)Ordered By: Emily Conorkraig on 39-42-6255Yqprhwlly/100 WBC (Bld)1.1 %.[facility] Bilirubin Test strip Ql (U)Ordered By: Emily Grimes on 36-97-3671Rnzuwlmqp Ql (U)NegativeNegativeCommunity Regional Medical CenterCOVID CepheidOrdered By: Emilykelsi Perdomokraig on 52-83-4788JKUC-CoV-2 (COVID-19) Ab IA QlNegativeNegative [facility] CenterComment on above:This is a duplicate Cepheid Xpert Xpress CoV-2/Flu/RSV Plus RNA by RT-PCR result to be used for statistical tracking purpose only.SARS-CoV-2 (COVID-19) RNA MARY+probe Ql (Unsp spec) [facility] CenterCalcium [Mass/volume] in Serum or PlasmaOrdered By: Emily Grimes on 53-68-7218Vhpqzer [Mass/Vol]10.2 mg/dL8.6-10.3FCleveland ClinicCarbon dioxide, total [Moles/volume] in Serum or Plasma Ordered By: Emily Grimes on 23-07-2991JL7 [Moles/Vol]20.1 mmol/L21.0-31.0 [facility] CenterChloride [Moles/volume] in Serum or Plasma Ordered By: Emily Conoradan on 66-77-6916Cnfoedgt [Moles/Vol]104 mmol/L98-107 [facility] CenterColor Auto (U)Ordered By: [facility] Conorore on 79-24-9277Hshee (U)YellowYellowCommunity Regional Medical CenterCreatine kinase [Enzymatic activity/volume] in Serum or PlasmaOrdered By: [facility]ore on 97-62-5525UR [Catalytic activity/Vol]62 U/T25-324SmeapphkbCommunity Regional Medical CenterCreatinine [Mass/volume] in Serum or PlasmaOrdered By: [facility] on 88-25-3231Qmudilsgsq [Mass/Vol]1.09 mg/dL0.60-1.20[facility] CenterEosinophils Auto (Bld) [#/Vol]Ordered By: [facility] on 07-02-2023 Eosinophils (Bld) [#/Vol]0.0 10*3/uL0.0-0.45[facility] Eosinophils/100 WBC Auto (Bld)Ordered By: [facility] on 07-02-2023 Eosinophils/100 WBC (Bld)0.4 %.[facility] CenterErythrocyte distribution width Auto (RBC) [Ratio]Ordered By: [facility] on 07-02-2023 Erythrocyte distribution width (RBC) [Ratio]14.4 %11.9-15.3FCleveland ClinicFine granular cast count in urine sediment by microscopy (number/low power field )Ordered By: [facility] on 61-27-8256Fmzw Granular Casts LM.LPF (Urine sed) [#/Area]3-4 [LPF]0-1[facility] Glucose Glucometer (BldC) [Mass/Vol]Ordered By: [facility] on 07-02-2023 Glucose [Mass/Vol]91 mg/dLCommunity Regional Medical CenterComment on above: Random Glucose Reference Range is dependent on time and content of last meal. Glucose of more than 200 mg/dL in a nonstressed, ambulatory subject supports the diagnosis of Diabetes Mellitus.Glucose [Mass/volume] in Serum or PlasmaOrdered By: Emily Grimes on 10-10-2234Chnwjqr [Mass/Vol]109 mg/nH64-687AqrapvxupCommunity Regional Medical CenterComment on above:ADA recommended reference rangeRandom Glucose Reference Range is dependent on time and content of last meal. Glucose of more than 200 mg/dL in a nonstressed, ambulatory subject supports the diagnosisof Diabetes Mellitus.Hematocrit Auto (Bld) [Volume fraction]Ordered By: Emily Grimes on 65-34-1788Orjxnrncpy (Bld) [Volume fraction]40.3 %34.0-46.4 [facility] CenterHemoglobin [Mass/volume] in BloodOrdered By: Emily Grimes on 35-95-6001Fjattaddci (Bld) [Mass/Vol]13.1 g/dL11.8-15.4 [facility] CenterINR in Platelet poor plasma by Coagulation assayOrdered By: Emily Grimes on 27-57-5922LFG Coag (PPP) [Relative time]1.0 {INR}[facility] CenterComment on above:INR Therapeutic Range A) Pre- and Peroperative OAT started two weeks before surgery. NOT HIP SURGERY: 1.5 - 2.5 HIP SURGERY: 2 - 3B) Primary and secondary prevention of venous THROMBOSIS: 2 - 3C) Active venous thrombosis, pulmonary embolismand prevention of recurrent venous thrombosis: 2 - 3D) Prevention of arterial thromboembolismincluding patients with mechanical heart valves: 3 - 4.5Ketones Auto test strip (U) [Mass/Vol]Ordered By: Emily Grimes on 20-37-6678Ddipsvd (U) [Mass/Vol]TraceNegativeCommunity Regional Medical CenterLeukocytes [#/volume] corrected for nucleated erythrocytes in Blood by Automated coun Ordered By: Emily Grimes on 99-92-2101UIC corrected for nucl RBC Auto (Bld) [#/Vol]12.9 10*3/uL3.8-11.6FCleveland ClinicLymphocytes Auto (Bld) [#/Vol]Ordered By: Emily Grimes on 93-64-4734Zmcyrjoeufe (Bld) [#/Vol] 1.8 10*3/uL1.00-4.8[facility] CenterLymphocytes/100 WBC Auto (Bld)Ordered By: Emily Bullimore on 00-86-7926Ocjosintvmx/100 WBC (Bld)13.7 %. [facility] CenterMCH Auto (RBC) [Entitic mass]Ordered By: Emily Bullimore on 02-55-1921PZQ (RBC) [Entitic mass]30.1 pg24.7-34.3FCleveland ClinicMCHC Auto (RBC) [Mass/Vol]Ordered By: Emily Bullimore on 66-19-4774JRJB (RBC) [Mass/Vol]32.6 g/dL32.0-35.0[facility] CenterMCV Auto (RBC) [Entitic vol]Ordered By: Emily Bullimore on 05-06-0277AIJ (RBC) [Entitic vol]92.4 kZ52-890HxeewyyxoCommunity Regional Medical CenterMonocyte distribution width [Entitic volume] in Blood by AutomatedOrdered By: Emily Bullimore on 61-39-8936Chgqrmmn distribution width Auto (Bld) [Entitic vol]15.19 %0.00-20.00[facility] CenterMonocytes Auto (Bld) [#/Vol]Ordered By: Emily Bullimore on 69-32-0760Mlbvzoppd (Bld) [#/Vol]0.8 10*3/uL0.0-0.8 [facility] CenterMonocytes/100 WBC Auto (Bld)Ordered By: Emily Bullimore on 86-49-8990Ducvqnnpz/100 WBC (Bld)6.4 %.[facility] CenterNeutrophils Auto (Bld) [#/Vol]Ordered By: Emily Bullimore on 07-02-2023 Neutrophils (Bld) [#/Vol]10.1 10*3/uL1.8-7.7[facility] Neutrophils/100 WBC Auto (Bld)Ordered By: Emily Bullimore on 07-02-2023 Neutrophils/100 WBC (Bld)78.4 %.[facility] CenterNitrite Test strip Ql (U)Ordered By: Emily Grimes on 82-59-2400Xilosxc Ql (U)Negative NegativeCommunity Regional Medical CenterNo Panel InformationOrdered By: Emily Grimes on 29-07-9325Rmjbpzdjp GFR (CKD-EPI)57.084 mL/MinCommunity Regional Medical CenterPharmacy Creatinine Clearance (Chem51.37[facility] CenterNucleated erythrocytes [Presence] in Blood by Automated countOrdered By: Emily Grimes on 46-18-8883Fnycfdoux RBC Auto Ql (Bld)0.1 /100{WBC}0-0.5 [facility] CenterPlatelet mean volume Auto (Bld) [Entitic vol] Ordered By: Emily Grimes on 65-70-1883Wppbipot mean volume (Bld) [Entitic vol]7.8 fL6.3-10.7FCleveland ClinicPlatelets Auto (Bld) [#/Vol] Ordered By: Emily Grimes on 95-94-7521Ozvvcjfbp (Bld) [#/Vol]370 10*3/uL 150-450[facility] CenterPotassium [Moles/volume] in Serum or PlasmaOrdered By: Emily Grimes on 60-60-1456Dlcyyonxo [Moles/Vol]3.9 mmol/L 3.5-5.1FCleveland ClinicProtein Auto test strip (U) [Mass/Vol] Ordered By: Emily Grimes on 33-47-0356Jlsuswf (U) [Mass/Vol]30 mg/dLNegative [facility] CenterProthrombin time (PT)Ordered By: Emily Grimes on 46-34-2821FD Coag (PPP) [Time]11.7 s9.0-12.9[facility] CenterComment on above:A hematocrit value greater than 55% may lead to inaccurate results in coagulation testing. Patientshaving hematocrit values >55% require a special collection tube for coagulation studies. Please contact the laboratory at [phone] for redraw instructions.RBC Auto (Bld) [#/Vol]Ordered By: Emily Grimes on 03-27-4420NJW (Bld) [#/Vol]4.36 10*6/uL3.60-5.[address] [facility] Hospitalerum or plasma anion gap determinationOrdered By: Emily Grimes on 96-42-6934Sdxhg gap [Moles/Vol]19.8 mmol/L6.0-15.[address] [facility] Hospitalodium [Moles/volume] in Serum or PlasmaOrdered By: Emily Grimes 56-38-8986Rtehzz [Moles/Vol]140 mmol/B167-302KunxuxngwMercy Health St. [facility] Hospitalpecific gravity Auto test strip (U) [Rel density]Ordered By: Emily Grimes on 24-68-0155Dhgzavda gravity (U) [Rel density]1.025 1.001-1.030[facility] Hospitalquamous epithelial cells detection in urine sediment by light microscopyOrdered By: Emily Perdomoadan on 07-02-2023 Epithelial cells.squamous LM Ql (Urine sed)3-4 [HPF]0-2FCleveland ClinicThyrotropin [Units/volume] in Serum or PlasmaOrdered By: Emily Grimes 24-52-2372MAK Qn0.59 m[IU]/L0.45-5.33[facility] CenterThyroxine (T4) free [Mass/volume] in Serum or PlasmaOrdered By: Emily Conorwestern [facility] 76-53-1286Vboz T4 [Mass/Vol]1.04 ng/dL0.61-1.12[facility] CenterTroponin I.cardiac [Mass/volume] in Serum or Plasma by Detection limit <= 0.01 ng/Ordered By: Emily [facility]western [facility] 74-85-6214Ithcuxii I.cardiac DL <= 0.01 ng/mL [Mass/Vol]< 2.3 pg/mL0.0-15.0[facility] Urea nitrogen [Mass/volume] in Serum or PlasmaOrdered By: Emily Perdomowestern maryland hospital center 42-26-3462Nzuy nitrogen [Mass/Vol]21 mg/dL7-25[facility] Urine bacteria detection by automated methodOrdered By: Emily Grimes 80-33-4823Fnkbydou Auto Ql (U)None seenNone SeenCommunity Regional Medical CenterUrine clarity by refractometry automatedOrdered By: Emily Grimes on 34-40-3555Gemnklx Refractometry automated (U)[facility] HospitalyCleLima City HospitalUrine glucose measurement by automated test strip (mass/volume) Ordered By: Emily Grimes on 35-73-7934Gufyjqg Auto test strip (U) [Mass/Vol] [address] mg/dL[address] Charles HospitalUrine hemoglobin detection by automated test stripOrdered By: Emily Grimes on 51-34-8201Nxnfullwbl Auto test strip Ql (U)NegativeNegativeCommunity Regional Medical CenterUrine leukocyte esterase detection by automated test stripOrdered By: Emily Grimes on 70-40-8810Vysohqhvm esterase Auto test strip Ql (U)2+NegativeCommunity Regional Medical CenterUrine sediment crystal identification by light microscopy Ordered By: Emily Grimes on 98-53-1751Fittwfin LM Nom (Urine sed)None seen [HPF][facility] Medical CenterUrobilinogen Auto test strip (U) [Mass/Vol]Ordered By: Emily Grimes on 01-31-9586Lzzwjvytwbua (U) [Mass/Vol] Normal mg/dLNoSycamore Medical CenterWBC Auto (Bld) [#/Vol]Ordered By: Emily Grimes on 89-18-7343PAP (Bld) [#/Vol]12.9 10*3/uL3.8-11.6 [facility] CenterpH Auto test strip (U)Ordered By: Emily Grimes on 59-67-6810kN (U)5.5 [pH]5.0-9.0[facility] Urinalysis - AUTOMATEDon 20-48-8859Oudmyazazv (U)[employer] Other Bilirubin Ql (U)[employer] Other Color (U)[place] Other Glucose Ql (U)[employer] Other Hemoglobin Ql (U)[employer] Other Ketones Ql (U)NegativeNowestern missouri medical center [employer] Other Leukocyte esterase Test strip Ql (U)traceNaviswiss [employer] Other Nitrite Ql (U)NegativeOmaha [employer] Other pH (U)5.5 [pH][employer] Other Protein Ql (U)traceNoBigelow Laboratory for Ocean Sciences [employer] Other Specific gravity (U) [Rel density]>1.030Nowestern [facility] medical [facility] [employer] Other Urobilinogen (U) [Mass/Vol]0.2 mg/dLOmaha [employer] Other Urinalysis - AUTOMATEDOmaha [employer] Other Urine culture routineOrdered By: Chloé Shea on 18-60-5711Peomlkbn identified Cx Nom (U)2 DaysCommunity Regional Medical CenterTobacco Screening.on 72-02-3822Hjvx risk assessmentc) Not medically indicatedMP-[facility] [employer] 250 DO Work Phone: Tobacco use status CPHSb) NoMP-[facility] [employer] 250 DO Work Phone: Tobacco Screening.YesMP-[facility] [employer] 250 DO Work Phone: Basophils Auto (Bld) [#/Vol]Ordered By: Olu Hull on 09-20-8698Ulmdvwimn (Bld) [#/Vol]0.1 10*3/uL0.0-0.2FCleveland ClinicBasophils/100 WBC Auto (Bld)Ordered By: Olu Hull on 15-71-5572Gahfznhbv/100 WBC (Bld)1.0 %.[facility] CenterCalcium [Mass/volume] in Serum or PlasmaOrdered By: Olu Hull on 13-70-8285Mlzxlma [Mass/Vol]9.0 mg/dL8.6-10.3FCleveland ClinicCarbon dioxide, total [Moles/volume] in Serum or PlasmaOrdered By: Olu [place]ville on 04-30-2023 CO2 [Moles/Vol]24.8 mmol/L21.0-31.0[facility] CenterChloride [Moles/volume] in Serum or PlasmaOrdered By: Olu [place] on 04-30-2023 Chloride [Moles/Vol]108 mmol/Q10-686ZebeydtxtCommunity Regional Medical CenterCreatinine [Mass/volume] in Serum or PlasmaOrdered By: Olu [place] on 04-30-2023 Creatinine [Mass/Vol]0.77 mg/dL0.60-1.20[facility] Eosinophils Auto (Bld) [#/Vol]Ordered By: [facility] on 04-30-2023 Eosinophils (Bld) [#/Vol]0.1 10*3/uL0.0-0.45[facility] Eosinophils/100 WBC Auto (Bld)Ordered By: Olu [place] on 04-30-2023 Eosinophils/100 WBC (Bld)1.3 %.[facility] CenterErythrocyte distribution width Auto (RBC) [Ratio]Ordered By: Olu [place] on 04-30-2023 Erythrocyte distribution width (RBC) [Ratio]13.6 %11.9-15.3FCleveland ClinicGlucose Glucometer (BldC) [Mass/Vol]Ordered By: Simone Martinez on 24-78-3292Wwupvou [Mass/Vol]124 mg/dLCommunity Regional Medical CenterComment on above:Random Glucose Reference Range is dependent on time and content of last meal. Glucose of more than 200 mg/dL in a nonstressed, ambulatory subject supports the diagnosis of Diabetes Mellitus.Glucose [Mass/volume] in Serum or PlasmaOrdered By: [facility] on 55-99-3157Hcocsfa [Mass/Vol]142 mg/iZ68-182JexdzomujCommunity Regional Medical CenterComment on above:ADA recommended reference rangeRandom Glucose Reference Range is dependent on time and content of last meal. Glucose of more than 200 mg/dL in a nonstressed, ambulatory subject supports the diagnosisof Diabetes Mellitus.Hematocrit Auto (Bld) [Volume fraction]Ordered By: Olu DíazHull on 06-40-9093Rouqzqtyuo (Bld) [Volume fraction]37.0 %34.0-46.4FCleveland ClinicHemoglobin [Mass/volume] in BloodOrdered By: Olu DíazHull on 90-89-8566Wvhmdacowo (Bld) [Mass/Vol]12.2 g/dL11.8-15.4FCleveland ClinicLeukocytes [#/volume] corrected for nucleated erythrocytes in Blood by Automated coun Ordered By: Olu DíazHull on 94-33-2302DKH corrected for nucl RBC Auto (Bld) [#/Vol]8.8 10*3/uL3.8-11.6FCleveland ClinicLymphocytes Auto (Bld) [#/Vol]Ordered By: Olu DíazHull on 06-01-9494Olqzgqiiztm (Bld) [#/Vol] 1.5 10*3/uL1.00-4.8[facility] CenterLymphocytes/100 WBC Auto (Bld)Ordered By: Olu DíazHull on 09-48-1617Ujzscvhxted/100 WBC (Bld)17.6 %. [facility] CenterMCH Auto (RBC) [Entitic mass]Ordered By: Olu Hull on 92-84-3153GRL (RBC) [Entitic mass]30.2 pg24.7-34.3FCleveland ClinicMCHC Auto (RBC) [Mass/Vol]Ordered By: Olu Hull on 78-13-3101YUHG (RBC) [Mass/Vol]33.1 g/dL32.0-35.0[facility] CenterMCV Auto (RBC) [Entitic vol]Ordered By: Olu Hull on 39-17-4359FFK (RBC) [Entitic vol]91.4 fQ57-990WjwvzlwelCommunity Regional Medical CenterMonocytes Auto (Bld) [#/Vol]Ordered By: Olu Hull on 78-55-5464Tmxenooct (Bld) [#/Vol]0.8 10*3/uL0.0-0.8[facility] CenterMonocytes/100 WBC Auto (Bld) Ordered By: Olu DíazHull on 86-22-4755Jblzkonge/100 WBC (Bld)9.4 %.[facility] Medical CenterNeutrophils Auto (Bld) [#/Vol]Ordered By: Olu DízaHull on 57-02-1415Tsvkomhpxwu (Bld) [#/Vol]6.2 10*3/uL1.8-7.7FCleveland ClinicNeutrophils/100 WBC Auto (Bld)Ordered By: Olu DíazHull on 25-83-4508Hswfxzsauqx/100 WBC (Bld)70.7 %.[facility] CenterNo Panel InformationOrdered By: Simone Martinez on 30-82-4556Kovzdoo Glucose CommentGlu2: cleaned meterCommunity Regional Medical CenterNo Panel Information Ordered By: Olu DíazHull on 65-29-5013Wudkdigek GFR (CKD-EPI)> 60.0 mL/Min [facility] CenterPharmacy Creatinine Clearance (Chem72.72 [facility] CenterNucleated erythrocytes [Presence] in Blood by Automated countOrdered By: Olu DíazHull on 02-12-8176Vrlpejcdg RBC Auto Ql (Bld)0.1 /100{WBC}0-0.5FCleveland ClinicPlatelet mean volume Auto (Bld) [Entitic vol]Ordered By: Olu [place] on 94-66-4882Leobqneo mean volume (Bld) [Entitic vol]8.5 fL6.3-10.7FC[facility] Platelets Auto (Bld) [#/Vol]Ordered By: Olu Hull on 63-72-1898Kxmbvzdfw (Bld) [#/Vol]230 10*3/cL209-131LvcedkorbCommunity Regional Medical CenterPotassium [Moles/volume] in Serum or PlasmaOrdered By: Olu Hull on 04-30-2023 Potassium [Moles/Vol]4.2 mmol/L3.5-5.1FCleveland ClinicRBC Auto (Bld) [#/Vol]Ordered By: Olu DíazHull on 39-70-7385WYD (Bld) [#/Vol]4.04 10*6/uL3.60-5.00[facility] Hospitalerum or plasma anion gap determinationOrdered By: Olu Hull on 03-37-0091Gbmmg gap [Moles/Vol]11.4 mmol/L6.0-15.0[facility] Hospitalodium [Moles/volume] in Serum or PlasmaOrdered By: Olu Hull on 35-91-5611Flyfec [Moles/Vol]140 mmol/L 136-145Community [facility] Medical CenterTroponin I.cardiac [Mass/volume] in Serum or Plasma by Detection limit <= 0.01 ng/Ordered By: Annabel Acharya on 63-90-8187Ukmhzsli I.cardiac DL <= 0.01 ng/mL [Mass/Vol]42.2 pg/mL0.0-15.0 [facility] Medical CenterUrea nitrogen [Mass/volume] in Serum or Plasma Ordered By: Olu Hull on 72-51-2017Pcyv nitrogen [Mass/Vol]14 mg/dL7-25 [facility] CenterWBC Auto (Bld) [#/Vol]Ordered By: Olu DíazHull on 76-57-6234OKT (Bld) [#/Vol]8.8 10*3/uL3.8-11.6FCleveland ClinicActivated partial thromboplastin time (aPTT) in platelet poor plasma by coagulation aOrdered By: Olu Hull on 56-00-8606nNFV Coag (PPP) [Time]44.2 s25.1-36.5FCleveland ClinicComment on above:A hematocrit value greater than 55% may lead to inaccurate results in coagulation testing. Patientshaving hematocrit values >55% require a special collection tube for coagulation studies. Please contact the laboratory at [phone] for redraw instructions.Cholesterol [Mass/volume] in Serum or PlasmaOrdered By: Olu Hull on 88-62-9902Ocgxerbrtby [Mass/Vol]138 mg/jV015-544NhymizcuoCommunity Regional Medical CenterComment on above:Chol less than 200 mg/dl low riskChol 201-239 mg/dl borderline riskChol 240 mg/dl and greater high riskCholesterol in LDL Calc [Mass/Vol]Ordered By: Olu Hull on 01-08-6169Ahowwshulgm in LDL [Mass/Vol] 71 mg/dL0-100Community Regional Medical CenterComment on above:LDL ATP III CLASSIFICATIONLDL less than 100 mg/dL OptimalLDL 100-129 mg/dL Near or above gxpsqiiEYP915-261 mg/dL Borderline highLDL 160-189 mg/dL HighLDL greater than 189 mg/dL Very highCholesterol in VLDL Calc [Mass/Vol]Ordered By: Olu Hull on 92-56-0289Xafpjqawatd in VLDL [Mass/Vol]14 mg/dLCommunity Regional Medical CenterGlucose mean value [Mass/volume] in Blood Estimated from glycated hemoglobinOrdered By: Olu Hull on 35-65-0287Rhadlhe glucose Estimated from glycated hemoglobin (Bld) [Mass/Vol]209 mg/dLCommunity Regional Medical Center Hemoglobin A1c percentageOrdered By: Olu Hull on 98-12-0662UqU2c (Bld) [Mass fraction]8.9 %4.3-5.6FCleveland ClinicComment on above: Increased risk for diabetes: 5.7 - 6.4diabetes: >6.4glycemic control for adults with diabetes: <7.0INR in Platelet poor plasma by Coagulation assayOrdered By: Olu Hull on 44-19-9090ZKG Coag (PPP) [Relative time]1.0 {INR}[facility] Medical CenterComment on above:INR Therapeutic Range A) Pre- and Peroperative OAT started two weeks before surgery. NOT HIP SURGERY: 1.5 - 2.5 HIP SURGERY: 2 - 3B) Primary and secondary prevention of venous THROMBOSIS: 2 - 3C) Active venous thrombosis, pulmonary embolismand prevention of recurrent venous thrombosis: 2 - 3D) Prevention of arterial thromboembolismincluding patients with mechanical heart valves: 3 - 4.5Laboratory - CoagulationOrdered By: Olu Hull on 73-85-7174JE Coag (PPP) [Time]12.0 s9.0-12.9[facility] Hospitalerum or plasma high density lipoprotein (HDL) cholesterol measurementOrdered By: Olu Hull on 99-25-9979Hgyibkhiiuh in HDL [Mass/Vol]53 mg/qM22-48PnptgvcdxCommunity Regional Medical CenterComment on above:HDL CHOL ATP-III CLASSIFICATION Cardiovascular RiskHDL > or equal to 60 mg/dL LOWHDL < 40 mg/dL HIGHSerum or plasma total cholesterol/high density lipoprotein (HDL) cholesterol mass ratOrdered By: Olu Hull on 04-29-2023 Cholesterol.total/Cholesterol in HDL [Mass ratio]2.6 {ratio}<5.0[facility] Medical CenterTriglyceride [Mass/volume] in Serum or PlasmaOrdered By: Olu Hull on 40-79-3081Hfjgyqfenddl [Mass/Vol]71 mg/dL0-149Community [facility] Medical CenterComment on above:TRIG ATP III CLASSIFICATIONTRIG less than 150 mg/dL NormalTRIG 150-199 mg/dL Borderline highTRIG 200-500 mg/dL High TRIG greater than 500 mg/dL Very highStandard traceable to the Center for Disease Conrtrol and Prevention (CDC) test method.Activated partial thromboplastin time (aPTT) in platelet poor plasma by coagulation aOrdered By: Joe Meneses on 91-81-2277zXWJ Coag (PPP) [Time]20.8 s25.1-36.5FCleveland ClinicAutomated erythrocytes count in urine sediment (number/area)Ordered By: Joe Meneses on 79-94-7646WJS Auto (Urine sed) [#/Area] 5-9 [HPF]0-4FCleveland ClinicAutomated leukocytes count in urine sediment (number/area)Ordered By: Joe Meneses on 97-72-0205DKA Auto (Urine sed) [#/Area]20-49 [HPF]0-4FCleveland ClinicAutomated urine hyaline casts count (number/volume)Ordered By: Joe Meneses on 08-02-0617Qsqbdef casts Auto (U) [#/Vol]20-49 [LPF]0-1FCleveland ClinicBasophils Auto (Bld) [#/Vol]Ordered By: Joe Meneses on 17-27-1538Ascukxuwx (Bld) [#/Vol] 0.2 10*3/uL0.0-0.2FCleveland ClinicBasophils/100 WBC Auto (Bld) Ordered By: Joe Meneses on 81-02-2431Omctdjuxo/100 WBC (Bld)1.5 %.[facility] Medical CenterBilirubin Test strip Ql (U)Ordered By: Joe Meneses on 97-09-3352Vopzpdong Ql (U)NegativeNegativeCommunity Regional Medical Center Calcium [Mass/volume] in Serum or PlasmaOrdered By: Joe Meneses on 04-28-2023 Calcium [Mass/Vol]8.7 mg/dL8.6-10.3FCleveland ClinicCarbon dioxide, total [Moles/volume] in Serum or PlasmaOrdered By: Joe Meneses on 37-53-1079BC4 [Moles/Vol]20.8 mmol/L21.0-31.0[facility] Chloride [Moles/volume] in Serum or PlasmaOrdered By: Joe Meneses on 04-28-2023 Chloride [Moles/Vol]113 mmol/R33-579PcqakiymuCommunity Regional Medical CenterColor Auto (U)Ordered By: Joe Meneses on 38-51-7827Gcdgg (U)YellowYellowCommunity Regional Medical CenterCreatine kinase [Enzymatic activity/volume] in Serum or Plasma Ordered By: Joe Meneses on 22-22-2861NC [Catalytic activity/Vol]30 U/L30-223 [facility] CenterCreatinine [Mass/volume] in Serum or Plasma Ordered By: Joe Meneses on 42-73-5713Jwksnuvuyh [Mass/Vol]0.93 mg/dL0.60-1.20 [facility] CenterEosinophils Auto (Bld) [#/Vol]Ordered By: Joe Meneses on 47-40-6915Jimandlggtv (Bld) [#/Vol]0.1 10*3/uL0.0-0.45[facility] Medical CenterEosinophils/100 WBC Auto (Bld)Ordered By: Joe Meneses on 21-37-6628Pbowiwhopga/100 WBC (Bld)0.5 %.[facility] Erythrocyte distribution width Auto (RBC) [Ratio]Ordered By: Joe Meneses on 06-79-2697Lgenuwhhaii distribution width (RBC) [Ratio]13.8 %11.9-15.3FCleveland ClinicGlucose [Mass/volume] in Serum or PlasmaOrdered By: Joe Meneses on 37-39-7243Xgujaqz [Mass/Vol]166 mg/xL11-920VpterbkagCommunity Regional Medical CenterComment on above:ADA recommended reference rangeRandom Glucose Reference Range is dependent on time and content of last meal. Glucose of more than 200 mg/dL in a nonstressed, ambulatory subject supports the diagnosisof Diabetes Mellitus.Hematocrit Auto (Bld) [Volume fraction]Ordered By: Joe Meneses on 33-22-9637Dvzckbpulz (Bld) [Volume fraction]36.7 %34.0-46.4FCleveland ClinicHemoglobin [Mass/volume] in BloodOrdered By: Joe Meneses on 98-34-9032Twzmejcyqv (Bld) [Mass/Vol]11.9 g/dL11.8-15.4FCleveland ClinicINR in Platelet poor plasma by Coagulation assayOrdered By: Joe Meneses on 31-47-6371QEV Coag (PPP) [Relative time]1.0 {INR}[facility] Medical CenterComment on above:INR Therapeutic Range A) Pre- and Peroperative OAT started two weeks before surgery. NOT HIP SURGERY: 1.5 - 2.5 HIP SURGERY: 2 - 3B) Primary and secondary prevention of venous THROMBOSIS: 2 - 3C) Active venous thrombosis, pulmonary embolismand prevention of recurrent venous thrombosis: 2 - 3D) Prevention of arterial thromboembolismincluding patients with mechanical heart valves: 3 - 4.5Ketones Auto test strip (U) [Mass/Vol] Ordered By: Joe Meneses on 42-84-0714Xpmfuhw (U) [Mass/Vol]1+NegativeCommunity Regional Medical CenterLaboratory - CoagulationOrdered By: Joe Meneses on 90-00-5654JN Coag (PPP) [Time]11.4 s9.0-12.9[facility] Leukocytes [#/volume] corrected for nucleated erythrocytes in Blood by Automated counOrdered By: Joe Meneses on 15-67-8817AAA corrected for nucl RBC Auto (Bld) [#/Vol]11.5 10*3/uL3.8-11.6FCleveland ClinicLymphocytes Auto (Bld) [#/Vol]Ordered By: Joe Meneses on 78-60-2774Nmugvvetgzk (Bld) [#/Vol]1.4 10*3/uL1.00-4.8[facility] Medical CenterLymphocytes/100 WBC Auto (Bld) Ordered By: Joe Meneses on 58-09-1598Duiiocxmtzm/100 WBC (Bld)12.1 %.[facility] HospitalH Auto (RBC) [Entitic mass]Ordered By: Joe Meneses on 20-61-0677QJM (RBC) [Entitic mass]29.7 pg24.7-34.3FCleveland ClinicMCHC Auto (RBC) [Mass/Vol]Ordered By: Joe Meneses on 04-77-0108XPDY (RBC) [Mass/Vol]32.4 g/dL32.0-35.0[facility] Medical CenterMCV Auto (RBC) [Entitic vol]Ordered By: Joe Meneses on 43-48-9499BVA (RBC) [Entitic vol]91.8 sA26-742UmmmpqiytCommunity Regional Medical CenterMonocyte distribution width [Entitic volume] in Blood by AutomatedOrdered By: Joe Meneses on 33-64-4629Kvcwxudr distribution width Auto (Bld) [Entitic vol]19.54 %0.00-20.00[facility] Medical CenterMonocytes Auto (Bld) [#/Vol]Ordered By: Joe Meneses on 04-28-2023 Monocytes (Bld) [#/Vol]0.8 10*3/uL0.0-0.8[facility] Monocytes/100 WBC Auto (Bld)Ordered By: Joe Meneses on 35-46-4079Kspfttkjz/100 WBC (Bld)7.4 %.[facility] Medical CenterNatriuretic peptide B [Mass/Vol] Ordered By: Joe Meneses on 89-93-1389Quxrwcstmiv peptide B (Bld) [Mass/Vol] 140.0 pg/mL5-100[facility] Medical CenterNeutrophils Auto (Bld) [#/Vol] Ordered By: Joe Meneses on 50-32-6205Cdnveigzdqe (Bld) [#/Vol]9.0 10*3/uL 1.8-7.7FCleveland ClinicNeutrophils/100 WBC Auto (Bld)Ordered By: Joe Meneses on 71-52-2778Prxzakeztxj/100 WBC (Bld)78.5 %.[facility] Medical CenterNitrite Test strip Ql (U)Ordered By: Joe Meneses on 04-28-2023 Nitrite Ql (U)NegativeNegativeCommunity Regional Medical CenterNo Panel InformationOrdered By: Joe Meneses on 70-85-0937Soojwnhvb GFR (CKD-EPI)> 60.0 mL/MinCommunity Regional Medical CenterPharmacy Creatinine Clearance (Chem60.21 [facility] CenterNucleated erythrocytes [Presence] in Blood by Automated countOrdered By: Joe Meneses on 30-38-7419Gnyuocyco RBC Auto Ql (Bld) 0.0 /100{WBC}0-0.5FCleveland ClinicPlatelet mean volume Auto (Bld) [Entitic vol]Ordered By: Joe Meneses on 04-46-3231Mtemeybn mean volume (Bld) [Entitic vol]8.5 fL6.3-10.7FCleveland ClinicPlatelets Auto (Bld) [#/Vol]Ordered By: Joe Meneses on 06-82-6092Wrzximlgv (Bld) [#/Vol]241 10*3/cW577-797KzmdlstrpCommunity Regional Medical CenterPotassium [Moles/volume] in Serum or PlasmaOrdered By: Joe Meneses on 07-44-9042Dtvafnkge [Moles/Vol]4.1 mmol/L 3.5-5.1FCleveland ClinicProtein Auto test strip (U) [Mass/Vol] Ordered By: Joe Meneses on 00-57-3671Yjxlwsp (U) [Mass/Vol]100 mg/dLNegative [facility] CenterRBC Auto (Bld) [#/Vol]Ordered By: Joe Meneses on 14-37-0098WAT (Bld) [#/Vol]4.00 10*6/uL3.60-5.00[facility] Hospitalerum or plasma anion gap determinationOrdered By: Joe Meneses on 50-97-4619Cmagm gap [Moles/Vol]10.3 mmol/L6.0-15.0[facility] Hospitalodium [Moles/volume] in Serum or PlasmaOrdered By: Joe Meneses on 97-68-3137Ffkfhp [Moles/Vol]140 mmol/R489-684WwbopglyuCommunity Regional Medical Center Specific gravity Auto test strip (U) [Rel density]Ordered By: Joe Meneses on 92-78-9582Juahygov gravity (U) [Rel density]1.0231.001-1.030[facility] Hospitalquamous epithelial cells detection in urine sediment by light microscopyOrdered By: Joe Meneses on 38-10-6120Pnmuxtclzs cells.squamous LM Ql (Urine sed)10-19 [HPF]0-2FCleveland ClinicTroponin I.cardiac [Mass/volume] in Serum or Plasma by Detection limit <= 0.01 ng/Ordered By: Joe Meneses on 65-43-5036Shcgzzcg I.cardiac DL <= 0.01 ng/mL [Mass/Vol]3.8 pg/mL0.0-15.0[facility] Medical CenterUrea nitrogen [Mass/volume] in Serum or PlasmaOrdered By: Joe Meneses on 03-34-7643Egev nitrogen [Mass/Vol]21 mg/dL7-25[facility] Medical CenterUrine bacteria detection by automated methodOrdered By: Joe Meneses on 77-86-0469Jvissgnv Auto Ql (U)None seenNone SeenCommunity Regional Medical CenterUrine clarity by refractometry automated Ordered By: Joe Meneses on 68-92-8391Ryzcsse Refractometry automated (U)Cloudy ClearCommunity Regional Medical CenterUrine culture routineOrdered By: Joe Meneses on 63-66-7346Yercdltq identified Cx Nom (U)[facility] CenterBacteria identified Cx Nom (U)[facility] Medical CenterUrine glucose measurement by automated test strip (mass/volume)Ordered By: Joe Meneses on 99-81-9528Sfipafl Auto test strip (U) [Mass/Vol]250 mg/dLNormal [facility] CenterUrine hemoglobin detection by automated test stripOrdered By: Joe Meneses on 51-33-2051Izluumvjwx Auto test strip Ql (U) NegativeNegativeCommunity Regional Medical CenterUrine leukocyte esterase detection by automated test stripOrdered By: Joe Meneses on 02-11-3522Xskozkqpt esterase Auto test strip Ql (U)2+NegativeCommunity Regional Medical CenterUrine sediment renal epithelial cell count by microscopy (number/high power field) Ordered By: Joe Meneses on 81-21-9012Ddquzgjuke cells.renal LM.HPF (Urine sed) [#/Area]N/AFCleveland ClinicUrobilinogen Auto test strip (U) [Mass/Vol]Ordered By: Joe Meneses on 50-69-8602Nokabnnrytau (U) [Mass/Vol] Normal mg/dLNormalCommunity Regional Medical CenterWBC Auto (Bld) [#/Vol]Ordered By: Joe Meneses on 03-15-0249FMK (Bld) [#/Vol]11.5 10*3/uL3.8-11.6FCleveland ClinicpH Auto test strip (U)Ordered By: Joe Meneses on 56-03-1736sF (U)6.0 [pH]5.0-9.0[facility] Medical CenterCNPNon 73-04-0945STRXFqiblbxlx (CARDAV) BRENDA SEGURA ([id number]) 1960 F Date Time Provider Department 04/21/23 JOSE EDUARDO CHU During your visit today, we recorded the following information about you: Francie Buenrostro MA 04/21/2023 9:56 AM Signed Received referral to Cardiology for PSVT and records from [facility]. Sent to scheduling and also sent records of scanning. Gretta Gordon 04/30/2023 2:01 PM Signed Pt's insurance is [id number]; created [facility] referral which requires financial clearance prior to scheduling. Gretta Gordon 05/04/2023 2:12 PM Signed Pt's referral was authorized for scheduling. Called pt to make an appt in Cardiology. Pt is already scheduled with a seed analyst in [place] and declined to schedule. Allergies As of [...] 10/19/2014 Encounter Status:Closed by GRETTA GORDON on 04/30/23NoMain Campus Medical CenterUrinalysis - AUTOMATEDon 11-08-6057Lbhrapoiaq (U)clearNoLetsgofordinner Other Bilirubin Ql (U)NegativeNortRadiant Zemax Other Color (U)dark yellowNortRadiant Zemax Other Glucose Ql (U)250N[employer] Other Hemoglobin Ql (U)moderateNoLetsgofordinner Other Ketones Ql (U)15North [employer] Other Leukocyte esterase Test strip Ql (U)NegativeNortRadiant Zemax Other Nitrite Ql (U)NegativeNowestern missouri medical center [employer] Other pH (U)6.5 [pH][facility] [employer] Other Protein Ql (U)30Nowestern [facility]ouri medical center [employer] Other Specific gravity (U) [Rel density]1.025Nowestern [facility] [employer] Other Urobilinogen (U) [Mass/Vol]0.2 mg/dLOmaha Motion Math Other Urinalysis - AUTOMATEDNowestern missouri medical center [employer] Other Urine culture routineOrdered By: Kathya Chang on 06-92-2874Hrqphbmg identified Cx Nom (U)2 DaysCommunity Regional Medical Center XR Wrist Complete Right*on 86-85-0261LT Wrist Complete Right*HISTORY: Wrist pain for 3 weeks. No known injury. COMPARISON: None RESULT: No acute fracture. No dislocation. Mild to moderate degenerative changes involving the thumb CMC and triscaphe joints, with small osteophytes. Soft tissues unremarkable. No other significant abnormality. IMPRESSION: No acute osseous findings. Report reported and signed by Art Alston on 01/05/2023 1039NormalNorthern Missouri Medical SpecialistPodiatry Office/Clinic Noteon 01-94-9171Jgelbxbe Office/Clinic NoteChief Complaint Symptom check left ankle s/p inj [...] feet and legs. This is intermittent. Not regular.Relates that she sees Dr. Santos for primary [...] grossly normal with strengths of 5/5 all moversof the foot and ankle. Minimal pain to [...] compared to the right as measured with [place] monofilament. Gross motor intact bilateral. Negative [...] of diabetes mellitus an (more content not included)...Normal [facility] CenterPodiatry Office/Clinic Noteon 98-30-8358Mrfkoxfw Office/Clinic NoteChief Complaint possible inj. ultasound perph nerv entrapment [...] ankle. She was being seen at the [facility] [place] in [facility] by Shira Quick Physician food and beverage assistant manager. She was referred here for evaluation of her neuritic/nerve pain. She has undergone EMG which showed S1 radiculopathy. She has had pain greater than 6 months. She istried nerve vitamins, activity modification, lace up ASO ankle brace, shoe gear modification, topical analgesics, oral analgesics, provider directed analgesics with little relief in pain. She presents for reevaluation today. Since last visit she has followed with pain management Dr. Goff. He gave her tramadol, topical medication/analgesic, and nerve vitamins. She relates this is helping somewhatwith the pain but pain still persists. She [...] grossly normal with strengths of 5/5 all moversof the foot and ankle. Minimal pain to [...] compared to the right as measured with [place] monofilament. Gross motor intact bilateral. Negative [...] injections of t (more content not included)... [facility] HospitalUS Lower Extr. Non-Vasc. Limited Lefton 15-91-9518RB Lower Extr. Non-Vasc. Limited LeftEXAM: Limited Diagnostic Musculoskeletal Ultrasound [with Ultrasound-Guided Injection of left common peroneal nerve at the fibular head] CLINICAL HISTORY: Patient with history of neuritic type pain and has history of left ankle surgery.Concern for potential common peroneal nerve entrapment, superficial peroneal nerve entrapment, sural nerve entrapment on the left TECHNIQUE: Musculoskeletal Ultrasound with [employer] e Mavenlink Gen unit with [12 MHz][C1-5] transducer FINDINGS: [...] the ultrasound. It was identified in both thelong and transverse planes. under direct ultrasound guidance [...] Is Signed, Electronically Signed in Other Vendor System)Normal [facility] CenterXR Tibia/Fibula Lefton 78-60-4355BR Tibia/Fibula Left2 views left tib-fib demonstrate: No acute fracture dislocations noted. Normal [...] Is Signed, Electronically Signed in Other Vendor System)Normal [facility] Medical CenterUrinalysis - DIPSTICKon 04-18-4809Jcrmneptnj (U) [employer] Other Bilirubin Ql (U)NegativeMakers Alley Other Color (U)yellowMakers Alley Other Glucose Ql (U)NegativeOmaha Motion Math Other Hemoglobin Ql (U)SmallNowestern missouri medical center [employer] Other Ketones Ql (U)NegativeOmaha [employer] Other Leukocyte esterase Test strip Ql (U)NegativeOmaha [employer] Other Nitrite Ql (U)NegativeOmaha [employer] Other pH (U)7.0 [pH][facility] [employer] Other Protein Ql (U)100Nowestern [facility] medical [facility] [employer] Other Specific gravity (U) [Rel density]>=1.030[place] [employer] Other Urobilinogen (U) [Mass/Vol]0.2 mg/dLOmaha [employer] Math Other Urinalysis - DIPSTICKOmaha [employer] Math Other Urine Cultureon 30-04-0324Pnwsi Culture>100,000Nowestern missouri medical center [employer] Other Podiatry Office/Clinic Noteon 12-83-9426Vqgwkcjl Office/Clinic NoteChief Complaint Surgery left ankle 01/06/22, increased pain [...] She was being seen at the [facility] [place] in [facility] by Shira Quick Physician food and beverage assistant manager. She was referred here for evaluation of her neuritic/nerve pain. She has undergone EMG which showed S1 radiculopathy. She has had pain greater than 6 months. She istried nerve vitamins, activity modification, lace up ASO [...] grossly normal with strengths of 5/5 all moversof the foot and ankle. Minimal pain to [...] compared to the right as measured with [place] monofilament. Gross motor intact bilateral. Negative [...] will also consider vascular lab arterial segmental studiesto assess for peripheral arterial occlusive disease. Discussed that pending pain management evaluation we will also consider diagnostic injection of theleft common peroneal nerve and left superficial peroneal nerve potentially under ultrasound guidance. Dis (more content not included)...[facility] HospitalProvider Letteron 07-13-1373Uiwvmimk Letter Rajni Quick PA-C [address] [place] [address], [place] [address] Re: Brenda Colton Date of Visit: 07/29/2022 Dear Rajni Quick PA-C, [facility] [address] [place] [address], [phone] Fax: [phone] Date: 07/29/2022 18:09:14 Dear Rajni Quick PA-C Thank you for referring Brenda Segura who [...] 2022 17:55:29 EST - (07/29/2022) Office Visit NoteNormalBlHolzer Health SystemXR Ankle 3 Views Lefton 47-99-2480SA Ankle 3 Views Left3 weightbearing views left ankle demonstrate: Radiolucency in the distal [...] Is Signed, Electronically Signed in Other Vendor System)Normal [facility] CenterXR Foot 3 Views Lefton 40-85-6697BI Foot 3 Views Left3 weightbearing views left foot demonstrate: Spurring of the posterior and plantar calcaneus noted. Decreased calcaneal inclination angle noted.No decrease in Meary's angle noted. Increased lateral [...] Is Signed, Electronically Signed in Other Vendor System)Normal [facility] Medical CenterUrinalysis - AUTOMATEDon 43-50-4963Sggasmiokf (U) [employer] Other Bilirubin Ql (U)NegativeOmaha Motion Math Other Color (U)yellowOmaha [employer] Math Other Glucose Ql (U)500Nowestern [facility] [employer] Other Hemoglobin Ql (U)[facility] [employer] Other Ketones Ql (U)NegativeOmaha [employer] Other Leukocyte esterase Test strip Ql (U)[facility] [employer] Other Nitrite Ql (U)NegativeOmaha [employer] Math Other pH (U)5.5 [pH][employer] Other Protein Ql (U)100[place] [employer] Other Specific gravity (U) [Rel density]>=1.030[place] [employer] Other Urobilinogen (U) [Mass/Vol]0.2 mg/dLOmaha Motion Math Other Urinalysis - AUTOMATEDOmaha [employer] Math Other CBC AUTO DIFFon 66-36-6025GZGZ #0.0 103/ulNormal 0.0-0.1The [facility] HospitalComment on above:Performed By: #### CBC #### [facility] [address] [place] [address] Dr. Mercy Cidphils/100 WBC (Bld)0.2 %Normal0.2-2.0The [facility] Comment on above:Performed By: #### CBC #### [facility] [address] [place] [address] Dr. Mercy Contreras #0.1 103/ulNormal0.0-0.7The [facility] HospitalComment on above: Performed By: #### CBC #### [facility] [address] [address] [address] Mercy Wilsonosinophils/100 WBC (Bld)0.5 %Critically low0.9-7.0The [facility] Hospitalment on above:Performed By: #### CBC #### [facility] [address] [place] [address] Dr. Mercy Wilsonrythrocyte distribution width (RBC) [Ratio]13.2 %Zhxodc99.0-15.0 The [facility] HospitalComment on above:Performed By: #### CBC #### [facility] [address] [place] [address] Dr. Mercy McgovernHematocrit (Bld) [Volume fraction]32.8 %Critically low36.0-48.0 [facility] on above:Performed By: #### CBC #### [facility] [address] [place] [address] Dr. Mercy McgovernHemoglobin (Bld) [Mass/Vol]10.6 g/dLCritically low12.0-16.0The [facility] Hospitalment on above:Performed By: #### CBC #### [facility] [address] [place] [address] Dr. Mercy Holly #0.05 10e3/ulCritically high0.00-0.03The [facility] Comment on above:Performed By: #### CBC #### [facility] [address] [place] [address] Dr. Mercy Holly %0.4 %Normal0.0-0.5The [facility] Hospitalment on above: Performed By: #### CBC #### [facility] [address] [place] [address] Dr. Mercy AguilarMPH #1.8 103/ulNormal1.2-3.8The [facility] Hospitalment on above:Performed By: #### CBC #### [facility] [address] [place] [address] Dr. Mercy Aguilarmphocytes/100 WBC (Bld)15.1 %Critically low20.5-60.0The [facility] HospitalComment on above:Performed By: #### CBC #### [facility] [address] [address] [address] Mercy Urbina DIFF REQNONormalThe [facility] HospitalComment on above: Performed By: #### CBC #### [facility] [address] [place] [address] Dr. Mercy Winn (RBC) [Entitic mass]30.0 gcHsxaux12.7-34.0The [facility] HospitalComment on above:Performed By: #### CBC #### [facility] [address] [place] [address] Dr. Mercy Winn (RBC) [Mass/Vol]32.3 g/hOWfslzu86.9-35.2The [facility] HospitalComment on above:Performed By: #### CBC #### [facility] [address] [place] [address] Dr. Mercy Winn (RBC) [Entitic vol]92.9 iYFxgapn91.0-99.0The [facility] HospitalComment on above:Performed By: #### CBC #### [facility] [address] [place] [address] Dr. Mercy Molina #0.8 103/ulNormal0.3-0.8The [facility] on above:Performed By: #### CBC #### [facility] [address] [place] [address] Dr. Mercy Penaocytes/100 WBC (Bld)6.9 %Normal1.7-12.0[facility] Comment on above:Performed By: #### CBC #### [facility] [address] [place] [address] Dr. Mercy Cano #9.2 103/ulCritically high1.4-6.5The [facility] Comment on above:Performed By: #### CBC #### [facility] [address] [place] [address] Dr. Mercy Rileyutrophils/100 WBC (Bld)76.9 %Critically high43.0-75.0The [facility] HospitalComment on above:Performed By: #### CBC #### [facility] [address] [address] [address] Mercy Stevenslet mean volume (Bld) [Entitic vol]9.7 fLNormal9.5-13.5The [facility] HospitalComment on above:Performed By: #### CBC #### [facility] [address] [place] [address] Dr. Mercy McgovernPLT162 103/flLjerfx370-393Orl [facility] HospitalComment on above: Performed By: #### CBC #### [facility] [address] [place] [address] Dr. Mercy McgovernRBC3.53 106/ulCritically low4.20-5.40The [facility] HospitalComment on above:Performed By: #### CBC #### [facility] [address] [place] [address] Dr. Mercy McgovernWBC12.0 103/ulCritically high4.0-11.0The [facility] HospitalComment on above:Performed By: #### CBC #### [facility] [address] [place] [address] Dr. Mercy Rehman 14(COMP METB)on 05-09-2872Cxdnkad [Mass/Vol]2.5 g/dL Critically low3.4-5.0The [facility] HospitalComment on above:Performed By: #### OBSCRN #### [facility] [address] [place] [address] Dr. Mercy McgovernAlbumin/Globulin [Mass ratio]0.9 {ratio}NormalThe [facility] HospitalCom[facility] on above:Performed By: #### OBSCRN #### [facility] [address] [place] [address] Dr. Mercy Mireles [Catalytic activity/Vol]69 U/ZBhayfd68-385Kad [facility] HospitalComment on above:Performed By: #### OBSCRN #### [facility] [address] [place] [address] Dr. Mercy Bernabe [Catalytic activity/Vol]21 U/CRwobnf99-41Fqd [facility] HospitalComment on above:Performed By: #### OBSCRN #### [facility] [address] [place] [address] Dr. Mercy Angelon gap [Moles/Vol]13.8 mmol/LNormalThe [facility] Comment on above:Performed By: #### OBSCRN #### [facility] [address] [place] [address] Dr. Mercy McgovernAST [Catalytic activity/Vol]12 U/LCritically eqe50-35Yfy [facility] HospitalComment on above:Performed By: #### OBSCRN #### [facility] [address] [place] [address] Dr. Mercy McgovernBilirubin [Mass/Vol]0.2 mg/dLNormal0.2-1.0The [facility] Comment on above:Performed By: #### OBSCRN #### [facility] [address] [place] [address] Dr. Mercy McgovernCalcium [Mass/Vol]8.1 mg/dLCritically low8.5-10.1The [facility] HospitalComment on above:Performed By: #### OBSCRN #### [facility] [address] [place] [address] Dr. Mercy McgovernChloride [Moles/Vol]114 mmol/LCritically cijd58-023Frz [facility] HospitalComment on above:Performed By: #### OBSCRN #### [facility] [address] [place] [address] Dr. Mercy McgovernCO2 [Moles/Vol]20.1 mmol/LCritically low21.0-32.0The [facility] HospitalComment on above:Performed By: #### OBSCRN #### [facility] [address] [place] [address] Dr. Mercy McgovernCreatinine [Mass/Vol]0.59 mg/dLNormal0.55-1.02The [facility] HospitalComment on above:Performed By: #### OBSCRN #### [facility] [address] [place] [address] Dr. Mercy WilsonGFR-AF MONEGASQUE>60Normal>=60The [facility] HospitalComment on above:Performed By: #### OBSCRN #### [facility] [address] [place] [address] Dr. Mercy WilsonGFR-NON AF MONEGASQUE>60Normal>=60The [facility] HospitalComment on above:Performed By: #### OBSCRN #### [facility] [address] [place] [address] Dr. Mercy McgovernGlobulin (S) [Mass/Vol]2.9 g/dLNormalThe [facility] HospitalComment on above:Performed By: #### OBSCRN #### [facility] [address] [place] [address] Dr. Mercy McgovernGlucose [Mass/Vol]143 mg/dLCritically mfug67-930Gzn [facility] HospitalComment on above:Performed By: #### OBSCRN #### [facility] [address] [place] [address] Dr. Mercy McgovernPotassium [Moles/Vol]3.9 mmol/LNormal3.5-5.1The [facility] Comment on above:Performed By: #### OBSCRN #### [facility] [address] [place] [address] Dr. Mercy McgovernProtein [Mass/Vol]5.4 g/dLCritically low6.4-8.2[facility] HospitalComment on above:Performed By: #### OBSCRN #### [facility] [address] [place] [address] Dr. Mercy McgovernSodium [Moles/Vol]144 mmol/LUnuaxm774-013Uer [facility] Comment on above:Performed By: #### OBSCRN #### [facility] [address] [place] [address] Dr. Mercy McgovernUrea nitrogen [Mass/Vol]9.0 mg/dLNormal7.0-18.0The [facility] HospitalComment on above:Performed By: #### OBSCRN #### [facility] [address] [place] [address] Dr. eMrcy McgovernUrea nitrogen/Creatinine [Mass ratio]15.3 mg/mgNormalThThe [facility] CenterComment on above:Performed By: #### OBSCRN #### [facility] [address] [place] [address] Dr. Mercy Tate AUTO DIFFon [id number] #0.0 103/ulNormal0.0-0.1The [facility] HospitalComment on above:Performed By: #### CBC #### [facility] [address] [place] [address] Dr. Mercy McgovernBasophils/100 WBC (Bld)0.2 %Normal0.2-2.0[facility] Comment on above:Performed By: #### CBC #### [facility] [address] [place] [address] Dr. Mercy WilsonO #0.0 103/ulNormal0.0-0.7The [facility] HospitalComment on above: Performed By: #### CBC #### [facility] [address] [place] [address] Dr. Mercy Wilsonosinophils/100 WBC (Bld)0.1 %Critically low0.9-7.0The [facility] on above:Performed By: #### CBC #### [facility] [address] [place] [address] Dr. Mercy Wilsonrythrocyte distribution width (RBC) [Ratio]12.9 %Qjzszh59.0-15.0 [facility] Centerment on above:Performed By: #### CBC #### [facility] [address] [place] [address] Dr. Mercy McgovernHematocrit (Bld) [Volume fraction]35.5 %Critically low36.0-48.0 [facility] on above:Performed By: #### CBC #### [facility] [address] [place] [address] Dr. Mercy McgovernHemoglobin (Bld) [Mass/Vol]11.3 g/dLCritically low12.0-16.0The [facility] HospitalComment on above:Performed By: #### CBC #### [facility] [address] [address] [address] Mercy Holly #0.07 10e3/ulCritically high0.00-0.03The [facility] Comment on above:Performed By: #### CBC #### [facility] [address] [address] [address] Mercy Holly %0.4 %Normal0.0-0.5The [facility] HospitalComment on above: Performed By: #### CBC #### [facility] [address] [address] [address] Mercy Contreras #1.8 103/ulNormal1.2-3.8The [facility] HospitalComment on above:Performed By: #### CBC #### [facility] [address] [place] [address] Dr. Mercy Castañedahocytes/100 WBC (Bld)11.3 %Critically low20.5-60.0The [facility] HospitalComment on above:Performed By: #### CBC #### [facility] [address] [address] [address] Mercy CosbyUAL DIFF REQNONormalThe [facility] HospitalComment on above: Performed By: #### CBC #### [facility] [address] [address] [address] Mercy Rosales (RBC) [Entitic mass]30.1 lqZeycox59.7-34.0The [facility]ment on above:Performed By: #### CBC #### [facility] [address] [place] [address] Dr. Mercy Winn (RBC) [Mass/Vol]31.8 g/qWNndask37.9-35.2The [facility] Hospitalment on above:Performed By: #### CBC #### [facility] [address] [address] [address] Mercy Winn (RBC) [Entitic vol]94.4 yQPphqga29.0-99.0The [facility] HospitalComment on above:Performed By: #### CBC #### [facility] [address] [address] [address] Mercy Molina #1.1 103/ulCritically high0.3-0.8ThThe [facility] Comment on above:Performed By: #### CBC #### [facility] [address] [address] [address] Mercy Penaocytes/100 WBC (Bld)6.7 %Normal1.7-12.0[facility] Comment on above:Performed By: #### CBC #### [facility] [address] [address] [address] Mercy Cano #12.8 103/ulCritically high1.4-6.5ThThe [facility] Comment on above:Performed By: #### CBC #### [facility] [address] [address] [address] Mercy Rileyutrophils/100 WBC (Bld)81.3 %Critically high43.0-75.0[facility] HospitalComment on above:Performed By: #### CBC #### [facility] [address] [address] [address] Mercy Stevenslet mean volume (Bld) [Entitic vol]9.8 fLNormal9.5-13.5ThThe [facility] CenterComment on above:Performed By: #### CBC #### [facility] [address] [address] [address] Mercy McgovernPLT175 103/auRketnu507-514Pfi [facility] HospitalComment on above: Performed By: #### CBC #### [facility] [address] [address] [address] Mercy McgovernRBC3.76 106/ulCritically low4.20-5.40The [facility] HospitalComment on above:Performed By: #### CBC #### [facility] [address] [address] [address] Mercy McgovernWBC15.8 103/ulCritically high4.0-11.0The [facility] HospitalComment on above:Performed By: #### CBC #### [facility] [address] [place] [address] Dr. Mercy McgovernH PYLORI TISSUEon 02-04-2022H PYL TISSUE, UREASENegativeNormal NEGATIVEThe [facility] HospitalComment on above:Performed By: #### HPYLT #### [facility] [address] [place] [address] Dr. Mercy McgovernHEMOGLOBIN AND HEMATOCRITon 86-40-5344Emgmajmzsw (Bld) [Volume fraction]34.1 %Critically low36.0-48.0The [facility] HospitalComment on above: Performed By: #### HGBHCT #### [facility] [address] [place] [address] Dr. Mercy McgovernHemoglobin (Bld) [Mass/Vol]10.7 g/dLCritically low12.0-16.0The [facility] on above:Performed By: #### HGBHCT #### [facility] [address] [place] [address] Dr. Mercy McgovernHematocrit (Bld) [Volume fraction]36.8 %Ffpipk06.0-48.0The [facility] on above:Performed By: #### OBSCRN #### [facility] [address] [place] [address] Dr. Mercy McgovernHemoglobin (Bld) [Mass/Vol]11.8 g/dLCritically low12.0-16.0The [facility] on above:Performed By: #### OBSCRN #### [facility] [address] [place] [address] Dr. Mercy McgovernHematocrit (Bld) [Volume fraction]37.0 %Ppfnza04.0-48.0The [facility] on above:Performed By: #### CBC #### [facility] [address] [place] [address] Dr. Mercy McgovernHemoglobin (Bld) [Mass/Vol]11.8 g/dLCritically low12.0-16.0The [facility] HospitalComment on above:Performed By: #### CBC #### [facility] [address] [address] [address] Mercy McgovernPOINT OF CARE GLUCOSEon 44-60-6850Txmosvm [Mass/Vol]161 mg/dL Critically mtzy12-295Rgy [facility] HospitalCom[facility] on above:Performed By: #### OBSCRN #### [facility] [address] [address] [address] Mercy McgovernGlucose [Mass/Vol]116 mg/dLCritically tagu96-469Gtm [facility] HospitalComment on above:Performed By: #### CBC #### [facility] [address] [place] [address] Dr. Mercy VilaF 14(COMP METB)on [id number] [Mass/Vol]2.7 g/dL Critically low3.4-5.0The [facility]ment on above:Performed By: #### CMP #### [facility] [address] [place] [address] Dr. Mercy McgovernAlbumin/Globulin [Mass ratio]0.9 {ratio}NormalThe [facility] on above:Performed By: #### CMP #### [facility] [address] [place] [address] Dr. Mercy Mireles [Catalytic activity/Vol]85 U/GAuxpab95-626Nfo [facility] on above:Performed By: #### CMP #### [facility] [address] [place] [address] Dr. Mercy Bernabe [Catalytic activity/Vol]24 U/VCqrbmw19-82Ffi [facility]ment on above:Performed By: #### CMP #### [facility] [address] [place] [address] Dr. Mercy Serrato gap [Moles/Vol]14.4 mmol/LNormalThe [facility] on above:Performed By: #### CMP #### [facility] [address] [place] [address] Dr. Mercy McgovernAST [Catalytic activity/Vol]15 U/PBgltdm80-02Yov [facility] HospitalComment on above:Performed By: #### CMP #### [facility] [address] [address] [address] Mercy McgovernBilirubin [Mass/Vol]0.3 mg/dLNormal0.2-1.0The [facility] on above:Performed By: #### CMP #### [facility] [address] [place] [address] Dr. Mercy McgovernCalcium [Mass/Vol]8.0 mg/dLCritically low8.5-10.1The [facility] HospitalComment on above:Performed By: #### CMP #### [facility] [address] [place] [address] Dr. Mercy McgovernChloride [Moles/Vol]108 mmol/LCritically cgfc71-860Wwu [facility] HospitalComment on above:Performed By: #### CMP #### [facility] [address] [place] [address] Dr. Mercy McgovernCO2 [Moles/Vol]20.5 mmol/LCritically low21.0-32.0The [facility] HospitalComment on above:Performed By: #### CMP #### [facility] [address] [place] [address] Dr. Mercy McgovernCreatinine [Mass/Vol]0.78 mg/dLNormal0.55-1.02The [facility] HospitalComment on above:Performed By: #### CMP #### [facility] [address] [place] [address] Dr. Mercy WilsonGFR-AF MONEGASQUE>60Normal>=60The [facility] HospitalComment on above:Performed By: #### CMP #### [facility] [address] [address] [address] Mercy WilsonGFR-NON AF MONEGASQUE>60Normal>=60The [facility] HospitalComment on above:Performed By: #### CMP #### [facility] [address] [place] [address] Dr. Mercy McgovernGlobulin (S) [Mass/Vol]3.0 g/dLNormalThe [facility] HospitalComment on above:Performed By: #### CMP #### [facility] [address] [address] [address] Mercy McgovernGlucose [Mass/Vol]127 mg/dLCritically tnkb83-130Isa [facility] HospitalComment on above:Performed By: #### CMP #### [facility] [address] [address] [address] Mercy McgovernPotassium [Moles/Vol]3.9 mmol/LNormal3.5-5.1The [facility] Comment on above:Performed By: #### CMP #### [facility] [address] [address] [address] Mercy McgovernProtein [Mass/Vol]5.7 g/dLCritically low6.4-8.2The [facility] HospitalComment on above:Performed By: #### CMP #### [facility] [address] [address] [address] Mercy McgovernSodium [Moles/Vol]139 mmol/GDtarho355-282Kqr [facility] Comment on above:Performed By: #### CMP #### [facility] [address] [address] [address] Mercy McgovernUrea nitrogen [Mass/Vol]13.0 mg/dLNormal7.0-18.0The [facility] HospitalComment on above:Performed By: #### CMP #### [facility] [address] [address] [address] Mercy McgovernUrea nitrogen/Creatinine [Mass ratio]16.7 mg/mgNormalThe [facility] HospitalComment on above:Performed By: #### CMP #### [facility] [address] [address] [address] Mercy McgovernAMYLASEon 69-92-7111Vxztolz [Catalytic activity/Vol]70 U/LNormal 25-115The [facility] HospitalComment on above:Performed By: #### CBC #### [facility] [address] [place] [address] Dr. Mercy McgovernCBC W MANUAL DIFFon [id number] LYMPH #NormalThe [facility] HospitalComment on above:Performed By: #### CMP #### [facility] [address] [address] [address] Mercy BeckerICAL LYMPH %NormalPremier Health Atrium Medical Center HospitalComment on above: Performed By: #### CMP #### [facility] [address] [address] [address] Mercy Quintana #1.0 103/ulCritically high0.0-0.3The [facility] on above:Performed By: #### CMP #### [facility] [address] [place] [address] Dr. Mercy Quintana %4 %Normal0-5The [facility] HospitalComment on above:Performed By: #### CMP #### [facility] [address] [place] [address] Dr. Mercy Vazquez #0.00 103/ulNormal0.00-0.10The [facility] HospitalComment on above:Performed By: #### CMP #### [facility] [address] [place] [address] Dr. Mercy Vazquez %0.0 %Critically low0.2-2.0The [facility] HospitalComment on above:Performed By: #### CMP #### [facility] [address] [place] [address] Dr. Mercy Mondragon #NormalMercy Health Anderson HospitalComment on above:Performed By: #### CMP #### [facility] [address] [place] [address] Dr. Mercy Mondragon %NormalPremier Health [facility] HospitalComment on above:Performed By: #### CMP #### [facility] [address] [place] [address] Dr. Mercy McgovernCORRECTED WBCNormal4.0-11.0The [facility] HospitalComment on above: Performed By: #### CMP #### [facility] [address] [place] [address] Dr. Mercy Serrano #0.00 103/ulNormal0.00-0.70The [facility] HospitalComment on above:Performed By: #### CMP #### [facility] [address] [place] [address] Dr. Mercy Serrano%0.0 %Critically low0.9-7.0The [facility] HospitalCom[facility] on above:Performed By: #### CMP #### [facility] [address] [place] [address] Dr. Mercy McgovernHCT45.9 %Olijke45.0-48.0The [facility] HospitalComment on above: Performed By: #### CMP #### [facility] [address] [place] [address] Dr. Mercy McgovernHGB15.0 g/yqNossmz29.0-16.0The [facility] on above: Performed By: #### CMP #### [facility] [address] [place] [address] Dr. Mercy Carr #2.56 103/ulNormal1.20-3.80The [facility] on above:Performed By: #### CMP #### [facility] [address] [place] [address] Dr. Mercy Carr%10.0 %Critically low20.5-60.0The [facility] on above:Performed By: #### CMP #### [facility] [address] [place] [address] Dr. Mercy WinnH29.9 qiNvafro76.7-34.0The [facility] HospitalCom[facility] on above: Performed By: #### CMP #### [facility] [facility] [address] [place] [address] Dr. Mercy WinnHC32.7 g/eyXrpyby21.9-35.2The [facility] HospitalCom[facility] on above:Performed By: #### CMP #### [facility] [address] [place] [address] Dr. Mercy WinnV91.6 zAZwnrpr46.0-99.0The [facility] HospitalComment on above: Performed By: #### CMP #### [facility] [address] [place] [address] Dr. Mercy GamezOCYTE #NormalThe [facility] HospitalComment on above: Performed By: #### CMP #### [facility] [address] [address] [address] Mercy GamezOCYTE %NormalThe [facility] HospitalComment on above: Performed By: #### CMP #### [facility] [address] [address] [address] Mercy Stephenson#1.79 103/ulCritically high0.30-0.80The [facility] on above:Performed By: #### CMP #### [facility] [address] [address] [address] Mercy Stephenson%7.0 %Normal1.7-12.0The [facility] HospitalComment on above: Performed By: #### CMP #### [facility] [address] [place] [address] Dr. Mercy McgovernMPV9.8 fLNormal9.5-13.5The [facility] HospitalComment on above: Performed By: #### CMP #### [facility] [address] [address] [address] Mercy BobOCYTE #NormalMercy Health Anderson HospitalComment on above:Performed By: #### CMP #### [facility] [address] [address] [address] Mercy BobOCYTE %NormalThe [facility] HospitalComment on above:Performed By: #### CMP #### [facility] [address] [address] [address] Mercy McgovernNRBCNormalThe [facility] HospitalComment on above:Performed By: #### CMP #### [facility] [address] [address] [address] Mercy McgovernPLT279 103/knWokkxc507-211Sdp [facility] HospitalComment on above: Performed By: #### CMP #### [facility] [address] [address] [address] Mercy McgovernRBC5.01 106/ulNormal4.20-5.40The [facility] HospitalComment on above:Performed By: #### CMP #### [facility] [address] [address] [address] Mercy AllenW12.8 %Xuykjf63.0-15.0The [facility] HospitalComment on above: Performed By: #### CMP #### [facility] [address] [address] [address] Mercy Mckeon #20.22 103/ulCritically high1.40-6.50The [facility] Comment on above:Performed By: #### CMP #### [facility] [address] [address] [address] Mercy Mckeon %79.0 %Critically high43.0-75.0The [facility] HospitalComment on above:Performed By: #### CMP #### [facility] [address] [place] [address] Dr. Mercy HerzogBC25.6 103/ulCritically high4.0-11.0The [facility] HospitalComment on above:Performed By: #### CMP #### [facility] [address] [place] [address] Dr. Mercy Watson 32-59-1909JKG5.5 mg/dLCritically high<=1.0The [facility] HospitalComment on above:Performed By: #### OBSCRN #### [facility] [address] [place] [address] Dr. Mercy McgovernCT ABD/PELVIS WO CONon [id number] ABD/PELVIS WO CONEXAMINATION: CT ABD/PELVIS WO CON HISTORY: UNSPECIFIED ABDOMINAL [...] Electronically authenticated by: CLARA GARCIA Date: 2022-02-03 10:30[facility] HospitalCULTURE BLOODon [id number] examination of blood, cultureCulture Observations: NO GROWTH AT 5 DAYS.NormalThe [facility] HospitalComment on above:Performed By: #### CMP #### [facility] [address] [place] [address] Dr. Mercy McgovernMicroscopic examination of blood, cultureCulture Observations: NO GROWTH AT 5 DAYS.NormalMercy Health Anderson HospitalComment on above:Performed By: #### BLDCX1 #### [facility] [address] [place] [address] Dr. Mercy Barrera URINEon 30-84-9870WLMEECK URINECulture Observations: MODERATE GROWTH OF MIXED GENITAL EDDIE. NO POTENTIAL PATHOGENS SEEN.NormalMercy Health Anderson HospitalComment on above:Performed By: #### URCX #### [facility] [address] [place] [address] Dr. Mercy McgovernCovid-19 PCR (CVDTB)on 66-51-3962MDWB-CoV-2 (COVID-19) RNA MARY+probe Ql (Unsp spec)Not detectedNormalNOT DETECTEDMercy Health Anderson Hospital Comment on above:Result Comment: When diagnostic testing is negative, the [...] for this test is supported by the [place] of Health and Human Service's declaration that circumstances exist to justify the emergency use of in vitro diagnostics for the detection and/or diagnosis of the virus that causes COVID-19. This EUA will remain in effect for the duration of the COVID-19 declaration justifying emergency of IVDs, unless it is terminated or revoked by the FDA (after which the test may no longer be used).Performed By: #### CVDTBH #### [facility] [address] [place] [address] Dr. Mercy Castañeda URINE PROFILEon 04-58-4283Yqbmrtmep Ql (U)NegativeNormal NEGATIVEMercy Health Anderson HospitalComment on above:Performed By: #### CBC #### [facility] [address] [place] [address] Dr. Meryc McgovernClevelina (U)CLEARNormalCLEARMercy Health Anderson HospitalComment on above: Performed By: #### CBC #### [facility] [address] [place] [address] Dr. Mercy Nelson (U)YELLOWNormalYELLOWMercy Health Anderson HospitalComment on above: Performed By: #### CBC #### [facility] [address] [place] [address] Dr. Mercy Singh micrscopic examination will be performed if indicated. NormalMercy Health Anderson HospitalComment on above:Performed By: #### CBC #### [facility] [address] [place] [address] Dr. Mercy McgovernGlucose Ql (U)>1000AbnormalNEGATIVEMercy Health Anderson HospitalComment on above:Performed By: #### CBC #### [facility] [address] [place] [address] Dr. Mercy McgovernHemoglobin Ql (U)LARGEAbnormalNEGATIVELake County [facility] on above:Performed By: #### CBC #### [facility] [address] [address] [address] Mercy Quesada Ql (U)15 mg/dlAbnormalNEGATIVEMercy Health Anderson Hospital Comment on above:Performed By: #### CBC #### [facility] [address] [place] [address] Dr. Mercy McgovernLEUKOCYTESTRACEAbnormalNEGATIVEThe [facility] HospitalComment on above:Performed By: #### CBC #### [facility] [address] [place] [address] Dr. Mercy Ghoshtrite Ql (U)NegativeNormalNEGATIVEThe [facility] HospitalComment on above:Performed By: #### CBC #### [facility] [address] [place] [address] Dr. Mercy McgovernpH (U)5.0 [pH]Normal5-9The [facility] HospitalComment on above: Performed By: #### CBC #### [facility] [address] [place] [address] Dr. Mercy McgovernSPEC GRAVITY1.363Nrtqmt5.005-<=1.025The [facility] HospitalComment on above:Performed By: #### CBC #### [facility] [address] [place] [address] Dr. Mercy Betancourt PROTEINNegativeNormalNEGATIVE/ TRACEThe [facility] Comment on above:Performed By: #### CBC #### [facility] [address] [place] [address] Dr. Mercy Mcdwoell MICRO INDINDICATEDNormalThe [facility] HospitalComment on above: Performed By: #### CBC #### [facility] [address] [place] [address] Dr. Mercy McgovernUrobilinogen Qn (U)0.2 {Loc'U}/dLNormal0.2 - 1.0The [facility] HospitalComment on above:Performed By: #### CBC #### [facility] [address] [place] [address] Dr. Mercy McgovernHEMOGLOBIN AND HEMATOCRITon 92-71-7922Avdorzrlel (Bld) [Volume fraction]41.0 %Yiwpge93.0-48.0The [facility] HospitalComment on above:Performed By: #### HGBHCT #### [facility] [address] [place] [address] Dr. Mercy McgovernHemoglobin (Bld) [Mass/Vol]13.4 g/oDEvbwws34.0-16.0The [facility] HospitalComment on above:Performed By: #### HGBHCT #### [facility] [address] [place] [address] Dr. Mercy McgovernLIPASEon 76-81-3236Rnblls [Catalytic activity/Vol]79.0 U/LNormal 73.0-393.0The [facility] HospitalComtrinity health [facility] on above:Performed By: #### CBC #### [facility] [address] [place] [address] Dr. Mercy McgovernOCC BLD IMMUNO SCREENon 23-98-2552QRGTMJ BLOODPositiveAbnormal NEGATIVEThe [facility] HospitalComment on above:Performed By: #### OBSCRN #### [facility] [address] [place] [address] Dr. Mercy McgovernPOINT OF CARE GLUCOSEon 99-02-3323Mgwhzoe [Mass/Vol]144 mg/dL Critically xcic84-698SkbMercy Health Anderson HospitalComtrinity health [facility] hospital on above:Performed By: #### POCGLUC #### [facility] [address] [place] [address] Dr. Mercy McgovernGlucose [Mass/Vol]133 mg/dLCritically egwg33-119Lml [facility] HospitalComment on above:Performed By: #### OBSCRN #### [facility] [address] [place] [address] Dr. Mercy McgovernPROF 14(COMP METB)on 69-49-8929Fkfpssl [Mass/Vol]3.9 g/dLNormal 3.4-5.0The [facility] HospitalComtr[facility] health [facility] on above:Performed By: #### OBSCRN #### [facility] [address] [place] [address] Dr. Mercy McgovernAlbumin/Globulin [Mass ratio]1.0 {ratio}NormalThe [facility] HospitalComment on above:Performed By: #### OBSCRN #### [facility] [address] [place] [address] Dr. Mercy Mireles [Catalytic activity/Vol]156 U/LCritically hbmw55-194Wsf [facility] HospitalComment on above:Performed By: #### OBSCRN #### [facility] [address] [place] [address] Dr. Mercy Bernabe [Catalytic activity/Vol]40 U/OGlznkw94-05Pei [facility] HospitalComment on above:Performed By: #### OBSCRN #### [facility] [address] [place] [address] Dr. Mercy Serrato gap [Moles/Vol]18.7 mmol/LNormalThe [facility] Comment on above:Performed By: #### OBSCRN #### [facility] [address] [place] [address] Dr. Mercy McgovernAST [Catalytic activity/Vol]23 U/UIxoxtq05-76Rkp [facility] HospitalComment on above:Performed By: #### OBSCRN #### [facility] [address] [place] [address] Dr. Mercy McgovernBilirubin [Mass/Vol]0.4 mg/dLNormal0.2-1.0The [facility] Comment on above:Performed By: #### OBSCRN #### [facility] [address] [place] [address] Dr. Mercy McgovernCalcium [Mass/Vol]9.8 mg/dLNormal8.5-10.1The [facility] Comment on above:Performed By: #### OBSCRN #### [facility] [address] [place] [address] Dr. Mercy McgovernChloride [Moles/Vol]101 mmol/WFpglzv85-520Xho [facility] Comment on above:Performed By: #### OBSCRN #### [facility] [address] [place] [address] Dr. Mercy McgovernCO2 [Moles/Vol]20.9 mmol/LCritically low21.0-32.0The [facility] HospitalComment on above:Performed By: #### OBSCRN #### [facility] [address] [place] [address] Dr. Mercy McgovernCreatinine [Mass/Vol]1.76 mg/dLCritically high0.55-1.02The [facility] HospitalComment on above:Performed By: #### OBSCRN #### [facility] [address] [address] [address] Madrid ChangEGFR-AF HFWDXLHD86 mL/min/1.25t2Frbvtxkrpr low>=60The [facility] HospitalComment on above:Performed By: #### OBSCRN #### [facility] [address] [place] [address] Dr. Mercy WilsonGFR-NON AF SVCDUCJO50 mL/min/1.72n0Jmwzsjibpg low>=60The [facility] HospitalComment on above:Performed By: #### OBSCRN #### [facility] [address] [place] [address] Dr. Mercy McgovernGlobulin (S) [Mass/Vol]3.8 g/dLNormalThe [facility] HospitalComment on above:Performed By: #### OBSCRN #### [facility] [address] [place] [address] Dr. Mercy McgovernGlucose [Mass/Vol]216 mg/dLCritically cfnn87-791Fsd [facility] HospitalComment on above:Performed By: #### OBSCRN #### [facility] [address] [place] [address] Dr. Mercy McgovernPotassium [Moles/Vol]4.6 mmol/LNormal3.5-5.1The [facility] Comment on above:Performed By: #### OBSCRN #### [facility] [address] [place] [address] Dr. Mercy McgovernProtein [Mass/Vol]7.7 g/dLNormal6.4-8.2The [facility] Comment on above:Performed By: #### OBSCRN #### [facility] [address] [place] [address] Dr. Mercy Roseum [Moles/Vol]136 mmol/JDrdxxm539-600Udk [facility] Comment on above:Performed By: #### OBSCRN #### [facility] [address] [place] [address] Dr. Mercy Martines nitrogen [Mass/Vol]32.0 mg/dLCritically high7.0-18.0The [facility] HospitalComment on above:Performed By: #### OBSCRN #### [facility] [address] [place] [address] Dr. Mercy Martines nitrogen/Creatinine [Mass ratio]18.2 mg/mgNoBlanchard Valley Health SystemComment on above:Performed By: #### OBSCRN #### [facility] [address] [place] [address] Dr. Mercy Mcguire [id number] Coag (PPP) [Relative time]1.06 {INR} NormalThe [facility] HospitalComment on above:Performed By: #### OBSCRAnca #### [facility] [address] [place] [address] Dr. Mercy Mendoza GUIDELINESSEE BELOWBarnesville HospitalComment on above:Result Comment: DESIRED INR: 2.0 - 3.0 CONDITIONS NOT LISTED BELOW 2.5 - 3.5 FOR PROSTHETIC HEART VALVE REPLACEMENT 2.5 - 3.5 RECURRENT THROMBOSIS Performed By: #### OBSCRN #### [facility] [address] [place] [address] Dr. Mercy Londono Coag (PPP) [Time]11.4 sNormal9.0-11.6The [facility] Comment on above:Performed By: #### OBSCRN #### [facility] [address] [place] [address] Dr. Mercy Colon 66-74-1058eASZ Coag (Bld) [Time]28.8 kPdqumv78.3-36.2[facility] HospitalComment on above:Performed By: #### OBSCRN #### [facility] [address] [address] [address] Mercy Galaviz RATE WESTERGRENon 23-25-2005SOC RATE18 mm/hrNormal<=30The [facility] on above:Performed By: #### CBC #### [facility] [address] [address] [address] Mercy Granados AND SCREENon 83-08-7116XMFK AND SCREENNegativeNoBlanchard Valley Health SystemComment on above:Performed By: #### CMP #### [facility] [address] [place] [address] Dr. Mercy Anderson MICROSCOPIC ONLYon 98-88-0553IKZCTEFILQVCPUvhuhdcyQKDB SEEN [facility] HospitalComtr[facility] on above:Performed By: #### CBC #### [facility] [address] [place] [address] Dr. Mercy Huston identified Cx Nom (U)INDICATEDBarnesville HospitalComtrinity health [facility] hospital on above:Performed By: #### CBC #### [facility] [address] [place] [address] Dr. Mercy Gonzalez SEENNormalNONE SEENThe [facility] on above:Performed By: #### CBC #### [facility] [address] [address] [address] Mercy Valdezystals LM Nom (Urine sed)NONE SEENNormalNONE SEENThe [facility] on above:Performed By: #### CBC #### [facility] [address] [address] [address] [place] ChangEpithelial cells LM Ql (Urine sed)MODERATEAbnormalNONE SEEN /RARE The [facility] HospitalComtr[facility] health [facility] on above:Performed By: #### CBC #### [facility] [address] [place] [address] Dr. Mercy SchulzCOUSNONE SEENNormalNONE SEENThe [facility] on above:Performed By: #### CBC #### [facility] [address] [address] [address] Mercy McgovernElicjEOH3-64Dnnkdwbp5-0Xfh [facility] HospitalComment on above:Performed By: #### CBC #### [facility] [address] [address] [address] Mercy McgovernWBC5-10AbnormalNONE SEENThe [facility] HospitalComment on above: Performed By: #### CBC #### [facility] [address] [address] [address] Mercy Mcgovern Vital Signs Date TimeVital SignValuePerforming DlllrthxpBnpngekd22-87-4577 10:09-0400Body yhvmgj714.2 cmWibernardo Acharya DO Work Phone: [phone] [place], [place] 2737610-30-2025 10:09-0400 Body mass index (BMI) [Ratio]24.28 kg/r3Dfajlcnbernardo Dukesdon DO Work Phone: [phone]10-30-2025 10:09-0400 Body .31 kgWibernardo Acharya DO Work Phone: [phone] [place], [place] 2737610-30-2025 10:09-0400 Diastolic blood vraymdxw13 mm[Hg]Mahamed Acharya DO Work Phone: [phone] [place], [place] 2737610-30-2025 10:09-0400 Heart rate72 /minMahamed Acharya DO Work Phone: [phone] [place], [place] 2737610-30-2025 10:09-0400 Systolic blood ljdsxyxd636 mm[Hg]Mahamed Acharya DO Work Phone: [phone])[address]10-07-2025 09:33-0400 Body jkpoiu039.18 cmAmy Lizama MD Work Phone: [facility]10-07-2025 09:33-0400 Body mass index (BMI) [Ratio]24.4 kg/s6ExljtmAmy Lizama MD Work Phone: [facility]10-07-2025 09:33-0400 Body .76 kgAmy Lizama MD Work Phone: [facility]10-07-2025 09:33-0400 Diastolic blood yfnzdxme32 mm[Hg]Amy Lizama MD Work Phone: [phone]10-07-2025 09:33-0400 Heart rate70 /Kishor Lizama MD Work Phone: [phone])[address] [place], [place] 5538610-07-2025 09:33-0400 Systolic blood vxerccsz949 mm[Hg]Amy Lizama MD Work Phone: [phone])[address] [place], [place] 5538609-26-2025 10:21-0400 Body bgadky817.18 cmAmy Lizama MD Work Phone: [phone])[address] [place], [place] 5538609-26-2025 10:21-0400 Body mass index (BMI) [Ratio]24.4 kg/h6LnrvcoAmy Lizama MD Work Phone: [phone])[address] [place], [place] 5538609-26-2025 10:21-0400 Body qutgos35.76 kgAmy Lizama MD Work Phone: [phone])[address] [place], [place] 5538609-26-2025 10:21-0400 Diastolic blood dhqgmpuq70 mm[Hg]Amy Lizama MD Work Phone: [phone])[address] [place], [place] 5538609-26-2025 10:21-0400 Heart rate71 /Kishor Lizama MD Work Phone: [phone])[address] [place], [place] 5538609-26-2025 10:21-0400 Systolic blood hvbuoguw586 mm[Hg]Amy Lizama MD Work Phone: 1(436)[address] [place], [place] 5538606-06-2025 13:26-0400 Body zukrlh260.18 Jayde Painter APRN Work Phone: [phone])[address] [place], [place] 4051506-06-2025 13:26-0400 Body mass index (BMI) [Ratio]24.5 kg/z9JpkbqrShu Painter APRN Work Phone: 1(694)[address]06-06-2025 13:26-0400 Body .87 kgShu Painter APRN Work Phone: [phone])[address] [place], [place] 4051506-06-2025 13:26-0400 Diastolic blood atnidtsy37 mm[Hg]Shu Painter DENTAL OFFICE ASSISTANT Work Phone: [facility]06-06-2025 13:26-0400 Heart rate67 /Gianna Painter DENTAL OFFICE ASSISTANT Work Phone: [facility]06-06-2025 13:26-0400 Systolic blood moyanjle05 mm[Hg]Shu Painter DENTAL OFFICE ASSISTANT Work Phone: [facility]05-27-2025 16:07-0400 Body steabj442.18 cmCommunity [facility]05-27-2025 16:07-0400Body mass index (BMI) [Ratio]24.5 kg/a1VqvvmyqguCommunity Regional Medical Center05-27-2025 16:07-0400Body cdxlkxxoggc61 [degF][facility]05-27-2025 16:07-0400Body ogmyrh42.21 kgCommunity [facility] Medical Center05-27-2025 16:07-0400Diastolic blood flwhiuet52 mm[Hg][facility] 01-17-2025 16:07-0400Heart rate85 /[facility] 01-17-2025 16:07-0400Respiratory rate14 /[facility] 01-17-2025 16:07-8459KzF6% (BldA) [Mass fraction]98 %[facility]05-27-2025 16:07-0400Systolic blood efmpdggb677 mm[Hg][facility]02-11-2025 08:58-0500Body zwqern392.18 cmAmanda Les DENTAL OFFICE ASSISTANT Work Phone: [facility]02-11-2025 08:58-0500 Body mass index (BMI) [Ratio]23.3 kg/p7Wcmort Les DENTAL OFFICE ASSISTANT Work Phone: [facility]02-11-2025 08:58-0500 Body qhudnb84.58 kgAmanda Les DENTAL OFFICE ASSISTANT Work Phone: [facility]02-11-2025 08:58-0500 Diastolic blood eilwqbte58 mm[Hg]Ciera Les DENTAL OFFICE ASSISTANT Work Phone: [facility]02-11-2025 08:58-0500 Heart rate85 /minAmandimitri Les DENTAL OFFICE ASSISTANT Work Phone: [facility]02-11-2025 08:58-0500 Systolic blood mm[Hg]Ciera Les DENTAL OFFICE ASSISTANT Work Phone: [facility]01-28-2025 11:09-0500 Blood Pressure LocationJENNIFER JERICA [facility]01-28-2025 11:09-0500Body chfzizyrfwf17.6 [degF]CHLOÉ JERICA [facility]01-28-2025 11:09-0500Diastolic blood ikvbujzl94 mm[Hg]CHLOÉ JERICA [facility]01-28-2025 11:09-0500Heart rate86 /minJENNIFER JREICA [facility]01-28-2025 11:09-0500Respiratory rate18 /minJENNIFER JERICA [facility]01-28-2025 11:09-0500Systolic blood aliypumh906 mm[Hg]CHLOÉ JERICA [facility]01-02-2025 10:14-0500Body cmkmeg479.2 [facility] GANG PUSHER Work Phone: [facility] CenterQharclpkpe27-81-8886 10:14-0500Body mass index (BMI) [Ratio]23.78 kg/g1Fwvmjses [place] GANG PUSHER Work Phone: [facility] CenterDvbexkwwtk13-16-1428 10:14-0500Body rfdzix77.86 kgVíctoria Priscilla GANG PUSHER Work Phone: [phone] CenterYgbbayqmuu66-78-6836 10:14-0500Diastolic blood ugahncxt63 mm[Hg]Dominic [place] GANG PUSHER Work Phone: [phone] CenterTmkoccagaz43-35-9478 10:14-0500Heart rate73 /min Dominic [place] GANG PUSHER Work Phone: [phone] CenterJxeaugxmic54-89-1722 10:14-0500Systolic blood wyoeucfy740 mm[Hg]Dominic [place] GANG PUSHER Work Phone: [phone]12-05-2024 10:08-0500Body lnhmaq984.2 cmPatricia Tigreburg GANG PUSHER Work Phone: [phone] CenterFzdlfdzxsz23-20-4289 10:08-0500Body mass index (BMI) [Ratio]23.74 kg/l0Grxibcwp Priscilla GANG PUSHER Work Phone: [phone] CenterWmeygxkxyj25-62-7950 10:08-0500Body qxysvu37.77 kgVíctoria Priscilla GANG PUSHER Work Phone: [phone] CenterHwuigfsuzw32-71-2304 10:08-0500Diastolic blood nyqpsosa39 mm[Hg]Dominic [place] GANG PUSHER Work Phone: [phone] CenterEadughujbe07-87-3589 10:08-0500Heart rate71 /min Dominic [place] GANG PUSHER Work Phone: [phone] CenterNpshwydaql89-11-5017 10:08-0500Systolic blood mm[Hg]Dominic [place] GANG PUSHER Work Phone: [phone] CenterGxlxdrbrku71-22-8224 16:38-0500Body eddtjk654.18 cmAmanda Les DENTAL OFFICE ASSISTANT Work Phone: [facility]11-29-2024 16:38-0500 Body mass index (BMI) [Ratio]23.3 kg/r6Rxcavs Les DENTAL OFFICE ASSISTANT Work Phone: [address] [place], [place] 504[address]11-29-2024 16:38-0500 Body aujkvieakzf47.2 [degF]Ciera Les DENTAL OFFICE ASSISTANT Work Phone: [address] [place], [place] 5043611-29-2024 16:38-0500 Body kamrrs56.69 kgAmanda Les DENTAL OFFICE ASSISTANT Work Phone: [phone] [place], [place] 6409011-29-2024 16:38-0500 Diastolic blood kuhvxrpc52 mm[Hg]Ciera Les DENTAL OFFICE ASSISTANT Work Phone: [address] [place], [place] 5043611-29-2024 16:38-0500 Heart rate85 /minAmanda Les DENTAL OFFICE ASSISTANT Work Phone: [address] [place], [place] 5043611-29-2024 16:38-0500 Respiratory rate18 /minAmanda Les DENTAL OFFICE ASSISTANT Work Phone: [phone] [place], [place] 6409011-29-2024 16:38-0500 SaO2% (BldA) [Mass fraction]99 %Ciera Les DENTAL OFFICE ASSISTANT Work Phone: [phone] [place], [place] 6409011-29-2024 16:38-0500 Systolic blood ponoknmu263 mm[Hg]Ciera Les DENTAL OFFICE ASSISTANT Work Phone: [phone] [place], [place] 6409011-14-2024 14:32-0500 Body mass index (BMI) [Ratio]24.12 kg/x8Fnowhbo Austin GANG PUSHER Work Phone: [facility] CenterGookykvjok01-36-9217 14:32-0500Body xfeemqdsfjk47 [degF]Xiao Mascorro GANG PUSHER Work Phone: [facility] CenterDonpdzajkt46-57-3265 14:32-0500Body snlsve44.85 kgXiao Mascorro GANG PUSHER Work Phone: [facility] CenterPipsdjawad68-59-2483 14:32-0500Diastolic blood tnizeycv02 mm[Hg]Xiao Mascorro GANG PUSHER Work Phone: [place] [address]Polmlyaotz65-44-0233 14:32-0500Heart rate83 /min Xiao Mascorro GANG PUSHER Work Phone: [facility] CenterIqnjefedef68-15-3157 14:32-5977FzK5% (BldA) [Mass fraction]99 %Xiao Mascorro GANG PUSHER Work Phone: [facility] CenterDicbrjzgqj68-34-1572 14:32-0500Systolic blood mm[Hg]Xiao Mascorro GANG PUSHER Work Phone: [facility] CenterEebsfawtpy07-79-7470 09:53-0400Body blhyff678.2 cmWibernardo Dukesdon DO Work Phone: [facility]10-30-2024 09:53-0400 Body mass index (BMI) [Ratio]23.93 kg/p3Ixnquvn Marck DO Work Phone: [phone] [address]10-30-2024 09:53-0400 Body ocgliv87.31 kgWibernardo Marck DO Work Phone: [phone] [place], [place] 2737610-30-2024 09:53-0400 Diastolic blood bgsxylbf44 mm[Hg]Mahamed Marck DO Work Phone: [phone] [place], [place] 2737610-30-2024 09:53-0400 Heart rate62 /minWibernardo Dukesdon DO Work Phone: [phone] [place], [place] 2737610-30-2024 09:53-0400 Systolic blood kwxjogqa257 mm[Hg]Mahamed Marck DO Work Phone: [phone] [place], [place] 2737610-25-2024 09:10-0400 Body .2 Vamshi Lundberg GANG PUSHER Work Phone: [facility] CenterZsygaecjkg32-00-2217 09:10-0400Body mass index (BMI) [Ratio]24.25 kg/u3AwdchZahira Lundberg GANG PUSHER Work Phone: [facility] CenterExpwahvsbr63-14-8470 09:10-0400Body cofzpc15.22 kgZahira Lundberg GANG PUSHER Work Phone: [facility] CenterSuszkspjnm87-35-6144 09:10-0400Diastolic blood tuetbtgm28 mm[Hg]Zahira Lundberg GANG PUSHER Work Phone: [facility] CenterNtzvnxxvyx08-18-3225 09:10-0400Heart rate73 /min Zahira Lundberg GANG PUSHER Work Phone: [facility] CenterYbzgjoxplp10-56-1348 09:10-3581ZiZ4% (BldA) [Mass fraction]97 %Zahira Lundberg GANG PUSHER Work Phone: [facility] CenterApcwuidjzl21-16-5339 09:10-0400Systolic blood mm[Hg]Zahira Lundberg GANG PUSHER Work Phone: [facility] CenterGldxietrpv01-76-6431 15:30-0400Body .2 Karlie Martinez GANG PUSHER Work Phone: [facility] CenterZcntinikxr52-25-4912 15:30-0400Body mass index (BMI) [Ratio]24.59 kg/s8GafkjfMateo Martinez GANG PUSHER Work Phone: [facility] CenterJsvpjexikh87-58-3815 15:30-0400Body temperature 96.8 [degF]Mateo Martinez GANG PUSHER Work Phone: [place] [address]Cchpaphsft41-43-2194 15:30-0400Body cdwjyu54.22 kgRajonathan Martinez GANG PUSHER Work Phone: [facility] CenterWahlmdnthe71-20-0583 15:30-0400Diastolic blood ywmsrisv46 mm[Hg]Mateo Martinez GANG PUSHER Work Phone: [facility] CenterRbvkzgrixn33-84-5367 15:30-0400Heart rate77 /min Mateo Martinez GANG PUSHER Work Phone: [place] [address]Wihztidodn85-23-9407 15:30-0484RkP5% (BldA) [Mass fraction]99 %Mateo Martinez GANG PUSHER Work Phone: [place] [address]Qgrrnornjh35-50-5480 15:30-0400Systolic blood ovednjbt626 mm[Hg]Mateo Martinez GANG PUSHER Work Phone: [facility] CenterWcfdkjvjfn47-37-3747 10:21-0400Body oxweaf228.2 cmWibernardo Acharya DO Work Phone: [facility]04-25-2024 10:21-0400 Body mass index (BMI) [Ratio]23.65 kg/t8NzzcybyMahamed Acharya DO Work Phone: [facility]04-25-2024 10:21-0400 Body yzmjmu57.49 kgWibernardo Acharya DO Work Phone: [facility]04-25-2024 10:21-0400 Diastolic blood wdhskman75 mm[Hg]Mahamed Acharya DO Work Phone: [facility]04-25-2024 10:21-0400 Heart rate72 /minMahamed Acharya DO Work Phone: [facility]04-25-2024 10:21-0400 Systolic blood wijicgpe940 mm[Hg]Mahamed Acharya DO Work Phone: [facility]04-02-2024 09:09-0400 Blood Pressure LocationJENNIFER JERICA [facility]04-02-2024 09:09-0400Diastolic blood jowuklxi93 mm[Hg]CHLOÉ JERICA [facility]04-02-2024 09:09-0400Heart rate68 /minJENNIFER JERICA [facility]04-02-2024 09:09-0400Respiratory rate18 /minJENNIFER JERICA [facility]04-02-2024 09:09-0400Systolic blood ulrfdsne219 mm[Hg]CHLOÉ JERICA [facility]11-09-2023 22:00-0500Body odjkslemeys95.1 [degF]PA-C Joe Meneses Work Phone: [facility]11-09-2023 22:00-0500 Diastolic blood mm[Hg]PA-C Joe Gideon Work Phone: [phone]11-09-2023 22:00-0500 Heart rate90 /minMAMADOU-C Joe Meneses Work Phone: [phone]11-09-2023 22:00-0500 Respiratory rate18 /minMAMADOU-C Joe Gideon Work Phone: [phone] [place], [place] 5303211-09-2023 22:00-0500 SaO2% (BldA) [Mass fraction]99 %PA-C Joe Gideon Work Phone: [phone]11-09-2023 22:00-0500 Systolic blood ouvjrqke859 mm[Hg]PA-C Joe Gideon Work Phone: [phone]11-09-2023 17:55-0500 Body uojxai297.18 cmPA-C Joe Gideon Work Phone: [phone]11-09-2023 17:55-0500 Body znzspu93.3 kgPA-C Joe Gideon Work Phone: [facility]10-26-2023 10:20-0400 Body flewlm537.18 cmChloé Shea Other [employer] Other 10-26-2023 10:20-0400Body mass index (BMI) [Ratio] 20.83 kg/i2ExvolxjvChloé Shea Other [employer] Other 10-26-2023 10:20-0400Body sslxzyewhcr66.2 [degF] Chloé Shea Other [employer] Other 10-26-2023 10:20-0400Body kdqgxu44.33 kgChloé Shea Other [employer] Other 10-26-2023 10:20-0400Diastolic blood kblhxyue25 mm[Hg] Chloé Shabbir Other [employer] Other 10-26-2023 10:20-0400Respiratory rate18 /minChloé Shea Other [employer] Other 10-26-2023 10:20-9800CtB1% (BldA) [Mass fraction]97 % Chloé Shabbir Other [employer] Other 10-26-2023 10:20-0400Systolic blood fyrpfhzg295 mm[Hg] Chloé Retanacrispin Other [employer] Other 09-15-2023 09:32-0400Body xfriai534.18 cmRenedez Katty Danielle Work Phone: [phone]-Lyuyr [employer] 250 DO Work Phone: 1(823) 371-907009-15-2023 09:32-0400Body mass index (BMI) [Ratio] 21.77 kg/y6Nnrhl Katty IrizarryDanielle Work Phone: [phone]-Aoagq [employer] 250 DO Work Phone: 1(949) 731-288309-15-2023 09:32-0400Body surface area Derived from formula1.73 n9Wllhy Katty Danielle Work Phone: [phone]-Mrays [employer] 250 DO Work Phone: 1(234) 913-144409-15-2023 09:32-0400Body tdewid13.05 kgRenee Katty Santos Work Phone: [phone]-Gmrzv [facility] 250 DO Work Phone: 1(232) 941-665309-15-2023 09:32-0400Diastolic blood tmhetrgl51 mm[Hg] Bonita Santos Work Phone: [phone]-Ikarg [facility] 250 DO Work Phone: 1(519) 326-330109-15-2023 09:32-0400Heart rate84 /minRenee Katty Santos Work Phone: [phone]-Xnlkt [facility] 250 DO Work Phone: 1(926) 271-578809-15-2023 09:32-0400Systolic blood taltjawx554 mm[Hg] Bonita Santos Work Phone: [phone]-Nzfjp [facility] 250 DO Work Phone: 1(298) 313-353209-07-2023 12:00-0400Body gjzomosapqz97.2 [degF] PHYSICIAN NO [facility]09-07-2023 12:00-0400 Diastolic blood mm[Hg]PHYSICIAN NO [facility]09-07-2023 12:00-0400Heart rate62 /minPHYSICIAN [facility]09-07-2023 12:00-0400Respiratory rate16 /minPHYSICIAN [facility]09-07-2023 12:00-3202KnV0% (BldA) [Mass fraction]98 %PHYSICIAN NO [facility]09-07-2023 12:00-0400Systolic blood purjrrsn787 mm[Hg]PHYSICIAN NO [facility]09-07-2023 05:29-0400Body ciaclz43.4 kgPHYSICIAN [facility]09-05-2023 22:41-0400Body jrjhez117.18 cm PHYSICIAN NO [facility]09-05-2023 22:00-0400 Diastolic blood zulipqhi28 mm[Hg]PHYSICIAN NO [facility]09-05-2023 22:00-0400Heart rate77 /minPHYSICIAN NO [facility]09-05-2023 22:00-0400Respiratory rate18 /minPHYSICIAN NO [facility]09-05-2023 22:00-4754HcT6% (BldA) [Mass fraction]100 %PHYSICIAN NO [facility]09-05-2023 22:00-0400Systolic blood zhatphto162 mm[Hg]PHYSICIAN NO [facility]09-05-2023 18:47-0400Body kushuw441.18 cmPHYSICIAN NO [facility]09-05-2023 18:47-0400Body jjhrocwkweq64.4 [degF]PHYSICIAN NO [facility]09-05-2023 18:47-0400 Body .1 kgPHYSICIAN NO [facility]07-14-2023 13:20-0400Body fytdnq210.18 Мария Chang Other [employer] Other 07-14-2023 13:20-0400Body mass index (BMI) [Ratio] 21.45 kg/h1BtxyvKathya Chang Other [employer] Other 07-14-2023 13:20-0400Body ykqmpbmzrvv95.2 [degF]Kathya Chang Other [employer] Other 07-14-2023 13:20-0400Body hapohs40.14 kgKathya Chang Other noLetsgofordinner Other 07-14-2023 13:20-0400Diastolic blood wrzytymm51 mm[Hg] Kathya Chang Other [employer] Other 07-14-2023 13:20-0400Respiratory rate18 /minKathya Chang Other noLetsgofordinner Other 07-14-2023 13:20-2627PgC1% (BldA) [Mass fraction]98 % Kathya Chang Other noLetsgofordinner Other 07-14-2023 13:20-0400Systolic blood jgcbszus664 mm[Hg] Kathya Chang Other [employer] Other 01-15-2023 10:40-0500Body .18 cmSjovan Ashby Other [employer] Other 01-15-2023 10:40-0500Body mass index (BMI) [Ratio] 22.39 kg/b2Rcqotmhfejami Ashby Other [employer] Other 01-15-2023 10:40-0500Body dajcxniuwks18.1 [degF] Maria Esther Ashby Other [employer] Other 01-15-2023 10:40-0500Body sitibi02.86 kgStjami Ashby Other [employer] Other 01-15-2023 10:40-0500Respiratory rate18 /minSjoavn Ashby Other noLetsgofordinner Other 01-15-2023 10:40-5322EaD4% (BldA) [Mass fraction]98 % Maria Esther Ashby Other [employer] Other 09-13-2022 17:20-0400Body opwhke471.18 cmSjovan Ashby Other [employer] Other 09-13-2022 17:20-0400Body mass index (BMI) [Ratio] 23.65 kg/m7CwovrxwuyMaria Esther Anandault Other noLetsgofordinner Other 09-13-2022 17:20-0400Body uqcicsyfmwy12.1 [degF] Maria Esther Anandault Other [employer] Other 09-13-2022 17:20-0400Body ubgyge89.49 kgStjami Anandault Other noLetsgofordinner Other 09-13-2022 17:20-0400Respiratory rate18 /minSjovan Anandault Other noLetsgofordinner Other 09-13-2022 17:20-0065HiG4% (BldA) [Mass fraction]97 % Maria Esther Anandault Other noLetsgofordinner Other 08-27-2022 10:10-0400Body oglyfh690.18 Kodi Acevedo Other noLetsgofordinner Other 08-27-2022 10:10-0400Body mass index (BMI) [Ratio] 23.74 kg/i2GillpcJanet Acevedo Other noLetsgofordinner Other 08-27-2022 10:10-0400Body omxnph45.77 kgJanet Acevedo Other noLetsgofordinner Other 08-27-2022 10:10-0400Diastolic blood zrlpnrej93 mm[Hg] Janet Acevedo Other [employer] Other 08-27-2022 10:10-0400Respiratory rate18 /minJanet Acevedo Other noLetsgofordinner Other 08-27-2022 10:10-5241DhN4% (BldA) [Mass fraction]100 % Janet Acevedo Other [employer] Other 08-27-2022 10:10-0400Systolic blood zeumhbzu584 mm[Hg] Janet Acevedo Other noLetsgofordinner Other Encounters Encounter DateEncounter TypeCare ProviderFacilityStart: 06-22-2025 End: 71-20-6195Bkxqwd outpatient visit [facility]Hom[facility] Work Phone: [facility] HospitalComment on above:Coronary artery disease involving [place]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[place] heart without angina pectoris (Pr imary Dx); Mixed hyperlipidemia; Primary hypertension; Type 2 diabetes mellitus with other diabetic kidney complication (Multi)Start: 06-22-2025 End: 16-78-6553tqeuohmjfcGDFONTMAscension [facility] AmbulatoryStart: 05-30-2025 End: 98-99-0503phtrxubmgxSlaoma E Braun MD Work Phone: [facility] Work Phone: Start: 05-30-2025 End: 66-31-1322Fgjliqj encounter procedureGustavo Salazar [facility]Madison Medical Center Work Phone: Start: 05-19-2025 End: 74-34-7290kfwffuibjsAnqlip E Braun MD Work Phone: [facility] Work Phone: Start: 05-19-2025 End: 14-44-1663Fxzeyot encounter Janet Lizama MD-[facility] Work Phone: Start: 75-72-5388Hbb-patient / Non-visitCatherine Ajith ALEJO-[facility] Work Phone: Start: 73-15-5748Xuk-patient / Non-visitTc Hudson DO-[facility] Professional [facility] Work Phone: Start: 01-27-2025 End: 88-30-8629sxawtbhmrjRpvzhzNevaeh Painter APRN Work Phone: [facility] Work Phone: Start: 01-27-2025 End: 95-38-0757Bbyudsn encounter procedureShu Painter APRN Work Phone: [facility] Work Phone: Start: 01-17-2025 End: 26-39-9109Qsxmxszi ReferredShu Painter APRN Work Phone: [facility] [place] Work Phone: Start: 01-17-2025 End: 74-11-8246aqznegxakrPyfndv M [facility] Work Phone: Start: 01-17-2025 End: 32-36-5779Fphtuoe encounter procedureNov[facility] Jeff Work Phone: Start: 11-26-2024 End: 84-88-7468AacucyHeopo Kampfer NP Work Phone: [facility] FNR FMComment on above:Primary hypertension (CMS/HCC)Start: 10-10-2024 End: 07-66-7444aivhkzxukfWEVBROTR E PERRYFacility:EU BellevueStart: 10-10-2024 End: 96-52-7788Vzbzvhm encounter procedureCHLOÉ PIZANO [facility] start: 10-07-2024 End: 62-22-7518xqbhqhczpdJT-C CHLOÉ Anne PERRYFacility:FTMCStart: 10-07-2024 End: 56-34-8038Ubp Drop offJENNIFER E JERICA [facility] Start: 10-07-2024 End: 58-03-0513pzhmctelotWVTBTRNL E PERRYFacility:EU BellueStart: 10-07-2024 End: 26-17-2460Lidkbwm encounter procedureJENNIFER E JERICA [facility] start: 00-32-5405Ohakhyp encounter statusAmanda Les DENTAL OFFICE ASSISTANT Work Phone: [facility] Hospital[facility]: 10-04-2024 End: 14-85-2861iqqqianrntHVI [facility] Work Phone: Start: 10-04-2024 End: 45-98-8218Xwlbxsivy for general adult medical examination without abnormal findingsAcutecare Health Systemda Les DENTAL OFFICE ASSISTANT Work Phone: [facility] Hospitaltart: 10-04-2024 End: 04-42-5341Houfrrp encounter procedureAmanda Les DENTAL OFFICE ASSISTANT Work Phone: [facility] GroupPro[facility] Work Phone: Start: 09-20-2024 End: 27-63-6142otduorxytjAFGLJOSC E PERRYFacility:FTMCStart: 09-20-2024 End: 83-39-2034Idw Drop offJENNIFER E JERICA [facility] Start: 09-20-2024 End: 03-10-4915zcaewaoejsOLWQJZSN E PERRYFacility:EU BellevueStart: 09-20-2024 End: 15-31-7501Hlwboww encounter procedureJENNIFER E JERICA [facility] start: 08-25-2024 End: 32-98-6182Eyzhqd flowsheetPatricia A Anithaenburg GANG PUSHER Work Phone: [facility] FNR FMStart: 08-25-2024 End: 44-30-7493Ayjmpi flowsheetPatricia A Hackenburg GANG PUSHER Work Phone: NOAE FNR FMStart: 08-25-2024 End: 00-32-3430Bfmwol outpatient visit 25 minutesPatricia A Hackenburg GANG PUSHER Work Phone: noMS FNR FMComment on above:Primary hypertension (CMS/HCC) (Primary Dx); 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); ALDAIR (generalized anxiety disorder) (CMS/HCC); Type 2 diabetes mellitus with diabetic cataract (CMS/HCC)Start: 08-25-2024 End: 16-29-0353wpyiagoykzNYVNHVII A ANITHAENBURGNot AvailableStart: 07-31-2024 End: 10-82-0642Acdtomqj Result EncounterSjevon Walteralfreditoleodan GANG PUSHER Work Phone: noms External Department UnsolicitedStart: 07-31-2024 End: 00-36-3801Jrzvvwdo Result EncounterSjevon Walteralfreditoleodan GANG PUSHER Work Phone: noms External Department UnsolicitedStart: 07-28-2024 End: 72-16-6707Gqdujj flowsheetPatricia A Anithaenburg GANG PUSHER Work Phone: NOAX FNR FMStart: 07-28-2024 End: 70-15-7240Asikhq flowsheetPatricia A Hackenburg GANG PUSHER Work Phone: noms FNR FMStart: 07-28-2024 End: 69-77-7537Ggukcz outpatient visit 25 minutesPatricia A Hackenburg GANG PUSHER Work Phone: noMS FNR FMComment on above:Mixed hyperlipidemia (CMS/HCC) (Primary Dx); Recurrent major depressive disorder, in partial remission (HCC) (CMS/HCC); Screening mammogram for breast cancer; ALDAIR (generalized anxiety disorder) ([facility]); Recurrent UTI; Iron deficiency anemia, unspecified iron deficiency anemia typeStart: 07-28-2024 End: 20-78-1377unspsorttqZUPMBQDT A HACKENBURGNot AvailableStart: 07-22-2024 End: 95-83-2193gmmtgydydlEXC STAFFFacility:[facility] Start: 07-22-2024 End: 62-35-6900Grylsnvs ReferredAmandimitri Saldana DENTAL OFFICE ASSISTANT Work Phone: [facility] [place] Work Phone: Start: 07-22-2024 End: 45-78-4787Yslhkcm encounter procedureCiera Johnsonb DENTAL OFFICE ASSISTANT Work Phone: [facility] Jeff Work Phone: Start: 07-07-2024 End: 25-86-4091hmgqbkxujdJQHXSYH N AUSTINNot AvailableStart: 07-07-2024 End: 64-74-4982Dgapxn outpatient visit 25 minutesXiao Mascorro GANG PUSHER Work Phone: noms [facility] UCComment on above:Acute cystitis without hematuria (Primary Dx); DysuriaStart: 06-22-2024 End: 93-47-1469Lqseru outpatient visit 15 minutesMahamed Acharya DO Work Phone: [facility] HospitalComment on above:Coronary artery disease involving [place]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[place] heart without angina pectoris; S/P right coronary artery (RCA) stent placement; Primary hypertension; Mixed hyperlipidemia; Type 2 diabetes mellitus with other diabetic kidney complication; BMI 23.0-23.9, adult; Smoker; [place] (myocardial infarction)Start: 06-17-2024 End: 27-58-9261Lidlrt Carlos Eduardo Lundberg GANG PUSHER Work Phone: noms FNR FMStart: 06-17-2024 End: 78-39-2877Ipmsno Carlos Eduardo Lundberg GANG PUSHER Work Phone: [facility] FNR FMStart: 06-17-2024 End: 96-36-3267jvxtwppugqLSQTY KAMPFERNot AvailableStart: 06-17-2024 End: 66-91-0355Yprejd outpatient visit 25 minutesSaleandra Lundberg GANG PUSHER Work Phone: noMS FNR FMComment on above:Mixed hyperlipidemia (CMS/HCC) (Primary Dx); Primary hypertension (CMS/HCC); 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); Iron deficiency anemia, unspecified iron deficiency anemia type; Recurrent major depressive disorder, in partial remission (HCC) (CMS/HCC); Type 2 diabetes mellitus with hyperglycemia, without long-term current use of insulin (CMS/HCC); 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); Primary hypertension (CMS/HCC)Start: 06-03-2024 End: 63-70-6996ecvrvpqfcaQHTYXU L HOLBROOKNot AvailableStart: 06-03-2024 End: 57-98-6292Npgveh outpatient visit 25 minutesRachel L Staplehurst GANG PUSHER Work Phone: [facility] SWS UCComment on above:Acute cystitis without hematuria (Primary Dx); DysuriaStart: 06-03-2024 End: 79-46-4360Peivhq flowsheetRachel L Juan GANG PUSHER Work Phone: [facility] UCStart: 06-03-2024 End: 12-86-8013Scbdpg flowsheetRachel L Staplehurst GANG PUSHER Work Phone: noMS [facility] UCStart: 05-02-2024 End: 60-46-5824ocytwtoogvRlikfdl R WATERSFacility:EU BellevueStart: 05-02-2024 End: 46-21-2586Lmnider encounter procedureJoe CARTAGENA [facility] start: 01-15-2024 End: 09-48-9470ebaccdaresUCVBVPIO A HACKENBURGNot AvailableStart: 2023 End: 17-89-1902egkstjzgybFhostqb R WATERSFacility:FTMCStart: 2023 End: 22-11-3515Ftoguab encounter procedureJoe CARTAGENA [facility] Start: 12-17-2023 End: 97-14-5792Thztmb outpatient visit 15 minutesMahamed Gutierrez Marck ZURITA Work Phone: [facility] HospitalComment on above:Coronary artery disease involving [place]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[place] heart without angina pectoris; Primary hypertension; Mixed hyperlipidemia; S/P right coronary artery (RCA) stent placement; Type 2 diabetes mellitus with other diabetic kidney complication (Multi); [place] (myocardial infarction); BMI 23.0-23.9, adult; Former smokerStart: 12-15-2023 End: 57-42-0243wqrkfjumoxZJLAFJYE Devan Zavala AvailableStart: 11-24-2023 End: 25-20-0753oskemxgptvVFQEF KEEFEFacility:EU BellevueStart: 11-24-2023 End: 08-66-1476Dycqkcg encounter procedureCHLOÉ PIZANO [facility] start: 09-15-2023 End: 32-95-3480oegmcvjbduVGSOY G KEEFENot AvailableStart: 07-02-2023 End: 16-54-6807Hhrfvhmua department patient visitHARISH Meneses Work Phone: [facility] Work Phone: Start: 06-18-2023 End: 41-55-2069poyjkjlvlxQvvckbmi [employer] Other [employer] Other Start: 94-92-6094Buqynx outpatient visit 15 minutes [facility] ClydeStart: 06-18-2023 End: 06-68-1377Qfjfrsgn ReferredPA-Robert Meneses Work Phone: [facility] [place] Work Phone: Start: 49-09-5059kxntncivrfZj. Mahamed Acharya Facility:[id number]: 39-63-7644Lzlntlg encounter procedureRenedez Santos Work Phone: [phone]-Udzft [facility] [address] DO Work Phone: Start: 03-15-4366Ozrqjvqznmmv care manage srvc 7 day dischargeRenedez Santos Work Phone: [phone]-Sgaoi [facility] 250 DO Work Phone: Start: 99-67-6818epzahbkvauWe. Mahamed Acharya Facility:[id number]: 04-29-2023 End: 53-51-7342Yibzbiywxt and management of inpatientPHYSICIAN NO [facility] [place] [facility] Work Phone: Start: 72-89-3650nizeiheeewSk. Mahamed Acharya Facility:UHCStart: 34-18-3056vrqfafawmhWr. Mahamed AcharyaFacility:art: 98-28-9409Czzfmbnrxc and management of inpatientPHYSICIAN NO [facility] [place] [facility] Work Phone: Start: 41-48-0067Wlduyiuhf encounterJose Eduardo Chu MD Work Phone: CardiologyComment on above:Received Outside Medical RecordsStart: 03-08-2023 End: 49-66-4787xhgarzbsvkExylr Keller Other [employer] Other Start: 09-30-4428Cajijjosi encounterKathya [facility]: 12-97-5538Vsywvq outpatient visit 15 minutesAmber Royer [facility] Care ClydeStart: 03-06-2023 End: 32-81-4137yeysihbfvfVCEK Amber Keller Work Phone: [facility] Work Phone: Start: 03-06-2023 End: 04-14-6269Kshlpkfu ReferredAPRAnca Chang Work Phone: [facility] [place] Work Phone: Start: 01-20-2023 End: 21-53-1354phsasufmuoHSOPCLYNANHD LAKSHMIPATHY .Facility:P6Kpyks: 12-25-2022 End: 29-39-4048kbtbdbvufdQEAUODBBRBZG LAKSHMIPATHY .Facility:C8Gujho: 12-18-2022 End: 66-50-5979srzybsxijgCVMDAZEPWRWK LAKSHMIPATHY .Facility:W6Rlihp: 12-05-2022 End: 20-93-7499tohmabsaqnODUKN D [facility]EEFacility:K9Yfbuc: 11-26-2022 ambulatoryDR DOCTOR MISCFacility:A2Sqxyu: 11-03-2022 End: 03-21-5481wpuazqdsthNygva Ena Danielle DOFacility:[facility] MedicineStart: 10-17-2022 End: 82-87-4913ucnkytkheaRO DOCTOR MISCFacility:N7Splqh: 10-09-2022 End: 61-29-0609zydmtghskqFllba Ena Danielle DOFacility:[facility] MedicineStart: 10-07-2022 End: 42-35-7166jhwhhkyuwzYW DOCTOR MISCFacility:N8Xixvh: 09-23-2022 End: 72-77-0501xocqgnllgkAT DOCTOR MISCFacility:T2Ynyre: 09-11-2022 End: 80-30-3042hsfqzriusjKwmyd Ena Danielle DOFacility:[facility] MedicineStart: 26-82-2007Nmjder outpatient visit 15 minutes Maria Esther Wyatt [facility] ClydeStart: 09-07-2022 End: 97-52-9537yixvmglpthGZG-C Maria Esther Ashby Work Phone: [facility] Work Phone: Start: 09-07-2022 End: 30-87-7431Ueqhfawa ReferredFNP-C Maria Esther Isma Work Phone: [facility] [place] Work Phone: Start: 09-02-2022 End: 87-44-2213akxxopdrlsES JORGE GOFF .Facility:Q1Vzoob: 07-29-2022 End: 24-43-4431hrebavwoukUzbls Jon Johnson DPMFacility:[facility] MedicineStart: 07-03-2022 End: 87-31-6055olxdphsiglMAWZOBXF CULLENFacility:S1Vrtxw: 05-06-2022 End: 34-60-4938clqyalgqvxDwalaiwth Breault Other [employer] Other Start: 30-13-5702Konjed outpatient visit 15 minutes Maria Esther AshbyFPKatty Urgent Care ClydeStart: 04-19-2022 End: 23-87-8072axbgkrhozfMifyet Taylor Other [employer] Other Start: 65-92-8689Ubtqxg outpatient visit 15 minutes Janet AcevedoKatty Urgent Care ClydeStart: 02-03-2022 End: 47-97-0933Szyicgtazj and management of inpatientSMARYLIN Velazquez FAWWADFacility:H1 Procedures DateProcedureProcedure DetailPerforming ClinicianStart: 50-14-7760Iexyo culture Shu Painter DENTAL OFFICE ASSISTANT Work Phone: Start: 90-84-1218Ytgwd occult peroxidase actv qual feces 1 Yaz Lundberg GANG PUSHER Work Phone: Start: 71-75-2648Rhuos cultureAmandimitri Saldana DENTAL OFFICE ASSISTANT Work Phone: Start: 84-61-5067Pfxgg dip stick/tablet rgnt auto w/o microscopyPatrice Leonard DO Work Phone: Start: 15-33-4422YWLXUFV TRACT INFECTION (HTRX)Mateo L uJan GANG PUSHER Work Phone: Start: 35-35-8563Mfgro dip stick/tablet rgnt auto w/o microscopyRajonathan Williamsonbrook GANG PUSHER Work Phone: Start: 74-09-1309BB of head without contrastHARISH Meneses Work Phone: Start: 68-11-6363Cdmgd chest X-rayMAMADOU-Robert Meneses Work Phone: Start: 22-14-5731XMOY-CoV-2, Influenza & RSV (PCR)HARISH Meneses Work Phone: Start: 79-37-4976Debet culturePA-Robert Joe Gideon Work Phone: Start: 14-89-1088Tljtjrq of placement of stent for coronary artery diseaseS/P right coronary artery (RCA) stent placementWillshane Marck DO Work Phone: Start: 04-51-9612JF LHC & COR AngioPHYSICIAN NO FAMILY Start: 54-44-0892OS Stent 1st Vessel RCA DESPHYSICIAN NO FAMILYStart: 04-28-2023 Plain chest X-rayPHYSICIAN NO FAMILYStart: 92-06-3421Cdukj culturePHYSICIAN NO FAMILYStart: 56-84-6098Cnykjtj stent (physical object)CHLOÉ JERICA Start: 90-79-3507Peeak culturePHYSICIAN NO FAMILYStart: 89-51-4834Yncwmacnwn of Descending Colon, Via Natural or Artificial Opening Endoscopic, DiagnosticPEASPIRUS STANLEY HOSPITALStart: 42-46-6099Ogigcqmzwl of Stomach, Via Natural or Artificial Opening Endoscopic, DiagnosticWELLSPAN GETTYSBURG HOSPITALStart: 52-33-4472FegxbgobdqjHgrmet Juan GANG PUSHER Work Phone: Start: 00-09-8508KcnqvihhuklUXAXPEKK JERICA Start: 69-91-3472Expgt colonoscopyBonita Santos Work Phone: Comment on above:Lakeshia;Start: 01-08-6549Fauomtmeruj Mahamed Acharya DO Work Phone: Start: 08-14-4505Izhlhmkmoz of breastJENICOLE PIZANO Ankle region structure (body structure)CHLOÉ PIZANO Cardiac ablation system (physical object)CHLOÉ PIZANO Dental surgical procedureBonita Santos Work Phone: History of placement of stent for coronary artery diseaseS/P right coronary artery (RCA) stent placementBonita Sanots Work Phone: History of placement of stent for coronary artery diseaseS/P right coronary artery (RCA) stent placementWillshane Acharya DO Work Phone: History of placement of stent for coronary artery diseaseS/P right coronary artery (RCA) stent placementWilliam Gutierrez Acharya DO Work Phone: Operative procedure on ankleBonita Santos Work Phone: Operative procedure on kneeBonita Santos Work Phone: Percutaneous transluminal coronary angioplastyBonita Santos Work Phone: Plan of Treatment DateCare ActivityDetailAuthorStart: 41-63-7587Lmddbjisx for malignant neoplasm of colonNOMS HealthcareStart: 54-66-1938Lckhaqwxs for malignant neoplasm of colonNOMS HealthcareStart: 06-22-2025 End: 71-20-4387Blvnklv aminotransferase [Enzymatic activity/volume] in Serum or Plasma by With P-5'-PAlanine Aminotransferase Lab Routine Coronary artery disease involving [place]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[place] heart without angina pectoris Mixed hyperlipidemia Expected: 06/22/2025 (Approximate), Expires:06/22/2026[facility] Service Area Work Phone: Comment on above:Expected: 06/22/2025 (Approximate), Expires: 06/22/2026Start: 06-22-2025 End: 65-64-8239Zhdzzjmcr aminotransferase [Enzymatic activity/volume] in Serum or Plasma by With P-5'-PAspartate Aminotransferase Lab Routine Coronary artery disease involving [place]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[place] heart without angina pectoris Mixed hyperlipidemia Expected: 06/22/2025 (Approximate), Expires: 06/22/2026 [facility] Work Phone: Comment on above:Expected: 06/22/2025 (Approximate), Expires: 06/22/2026Start: 06-22-2025 End: 06-22-2026 reactive protein [Mass/volume] in Serum or Plasma by High sensitivity methodC-Reactive Protein, High Sensitivity Lab Routine Coronary artery disease involving [place]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[place] heart without angina pectoris Mixed hyperlipidemia Primary hypertension Expected: 06/22/2025 (Approximate), Expires: 06/22/2026[facility] Work Phone: Comment on above:Expected: 06/22/2025 (Approximate), Expires: 06/22/2026Start: 06-22-2025 End: 87-23-1843Vxzaz 1996 panel - Serum or PlasmaLipid Panel Lab Routine Coronary artery disease involving [place]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[place] heart without angina pectoris Mixed hyperlipidemia Expected: 06/22/2025 (Approximate), Expires: 06/22/2026[facility] Work Phone: Comment on above:Expected: 06/22/2025 (Approximate), Expires: 06/22/2026Start: 06-22-2025 End: 03-04-8547Xuwzuwx encounter jhmkkivph09/30/2025 10:20 AM EDT Office Visit [facility] [address] [place] [address] Mahamed Acharya DO [address] [place] [address] [facility]Start: 07-59-5828Hkpup screening for proteinDiabetes: Urine Protein ScreeningSaint Joseph Health CenterStart: 05-24-2025 Influenza vaccinationNONY HealthcareComment on above:Postponed from 04/24/2024 (Patient Refused)Postponed from 04/24/2025 (Patient Refused)Start: 05-19-2025 [facility] Work Phone: Start: 25-29-4747JXVLY-19 Vaccine () COVID-19 Vaccine ()[facility]: 80-69-6178Rlhpozca screeningDiabetes: Retinopathy ScreeningNONY HealthcareStart: 91-87-3925Ignrjcfsu vaccinationInfluenza Vaccine (#1)[facility]: 89-90-9987Lizjo cultureMercy Health St. Elizabeth Youngstown Hospitaltart: 60-33-4870Goohovts identified in Urine by CultureUrine [facility] Centertart: 85-11-9475Czhfu screening for proteinDiabetes: Urine Protein ScreeningGARFIELD MEMORIAL [facility] HealthcareStart: 96-45-5316Btffepuwh for osteoporosisBone Density [facility]: 51-94-6159Krdfo screening for proteinDiabetes: Urine Protein ScreeningSaint Joseph Health CenterStart: 09-17-2024 Hemoglobin A1c measurementDiabetes: Hemoglobin X3TQLCLSaint Joseph Health CenterStart: 08-25-2024 End: 31-89-2099Fwutvpt encounter procedureNOMS FNR FMComment on above:Arrived Start: 07-28-2024 End: 42-85-7000GCR Breast - bilateral screeningBilateral screening mammogram with tomosynthesis Imaging Routine Screening mammogram for breast cancer Expected: 07/28/2024, Expires: 09/28/2025NONY HealthcareComment on above: Expected: 07/28/2024, Expires: 09/28/2025Start: 07-28-2024 End: 78-96-7654Rkbrk 1996 panel - Serum or PlasmaLipid panel Lab Routine Mixed hyperlipidemia (CMS/HCC) Expected: 07/28/2024 (Approximate), Expires:07/28/2025 [facility] Healthcare Work Phone: Comment on above:Expected: 07/28/2024 (Approximate), Expires: 07/28/2025Start: 07-28-2024 End: 58-27-9029Tlivocd encounter procedureNOMS FNR FMComment on above:Arrived Start: 06-22-2024 End: 32-52-7325Gmemmci aminotransferase [Enzymatic activity/volume] in Serum or Plasma by With P-5'-PAlanine Aminotransferase Lab Routine Coronary artery disease involving [place]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[place] heart without angina pectoris S/P right coronary artery (RCA) stent placement Mixed hyperlipidemia Expected: 06/22/2024, Expires: 06/22/2025[facility] Work Phone: Comment on above:Expected: 06/22/2024, Expires: 06/22/2025Start: 06-22-2024 End: 82-05-4264Jcfnfilsc aminotransferase [Enzymatic activity/volume] in Serum or Plasma by With P-5'-PAspartate Aminotransferase Lab Routine Coronary artery disease involving [place]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[place] heart without angina pectoris S/P right coronary artery (RCA) stent placement Mixed hyperlipidemia Expected: 06/22/2024, Expires: 06/22/2025[facility] Work Phone: Comment on above:Expected: 06/22/2024, Expires: 06/22/2025Start: 06-22-2024 End: 06-22-2025 reactive protein [Mass/volume] in Serum or Plasma by High sensitivity methodC-Reactive Protein, High Sensitivity Lab Routine Coronary artery disease involving [place]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[place] heart without angina pectoris S/P right coronary artery (RCA) stent placement Primary hypertension Expected: 06/22/2024, Expires: 06/22/2025[facility] Work Phone: Comment on above:Expected: 06/22/2024, Expires: 06/22/2025Start: 06-22-2024 End: 35-15-1632Ecvpf 1996 panel - Serum or PlasmaLipid Panel Lab Routine Coronary artery disease involving [place]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[place] heart without angina pectoris S/P right coronary artery (RCA) stent placement Mixed hyperlipidemia Expected:06/22/2024, Expires: 06/22/2025[facility] Service Area Work Phone: Comment on above:Expected: 06/22/2024, Expires: 06/22/2025Start: 06-22-2024 End: 76-98-8595Bvmmhom encounter hbezyltbi30/30/2024 9:40 AM EDT Office Visit [facility] [address] [place] [id number] Mahamed Acharya, [address] [place] [address] [facility]: 06-17-2024 End: 38-44-6237HAM W Auto Differential panel - BloodCBC and differential Lab Routine Iron deficiency anemia, unspecified iron deficiency anemia type Exp ected: 06/17/2024 (Approximate), Expires: 06/17/2025[facility] HealthcareComment on above:Expected: 06/17/2024 (Approximate), Expires: 06/17/2025Start: 06-17-2024 End: 44-90-4407Abhmnzxnngfsa metabolic 2000 panel - Serum or PlasmaComprehensive metabolic panel Lab Routine Primary hypertension (CMS/HCC) 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) Expected: 06/17/2024 (Approximate), Expires: 06/17/2025[facility] HealthcareComment on above:Expected: 06/17/2024 (Approximate), Expires: 06/17/2025Start: 06-17-2024 End: 13-75-0380Tnvjrdjlzi A1c/Hemoglobin.total in BloodHemoglobin A1c Lab Routine 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) Expected: 06/17/2024 (Approximate), Expires: 06/17/2025[facility] Healthcare Work Phone: Comment on above:Expected: 06/17/2024 (Approximate), Expires: 06/17/2025Start: 06-17-2024 End: 11-06-3464Xucf + transferrin + TIBCIron + transferrin + TIBC Lab Routine Iron deficiency anemia, unspecified iron deficiency anemia type Expected: 06/17/2024 (Approximate), Expires: 06/17/2025NONY HealthcareComment on above: Expected: 06/17/2024 (Approximate), Expires: 06/17/2025Start: 06-17-2024 End: 83-94-4479Mogujnj encounter twwnwoshh99/25/2024 9:00 AM EDT Office Visit [facility] [address] [place] [address] Zahira Lundberg, [place] [address] [place], [place] [id number] [facility] FMStart: 54-59-4965CSBNQ-19 Vaccine ( season)COVID-19 Vaccine ( season)[facility]: 76-18-1833Ojmiamtej vaccinationC[facility] Clinic [facility]: 45-12-0339Huphxdbecl A1c measurementDiabetes: Hemoglobin M3TDSKISt. Louis Children's HospitalStart: 12-17-2023 End: 85-71-6863Bhqmgss aminotransferase [Enzymatic activity/volume] in Serum or Plasma by With P-5'-PAlanine Aminotransferase Lab Routine Mixed hyperlipidemia Expected: 12/17/2023 (Approximate), Expires: 12/16/2024[facility] Work Phone: Comment on above:Expected: 12/17/2023 (Approximate), Expires: 12/16/2024Start: 12-17-2023 End: 08-44-1801Eyucvwtng aminotransferase [Enzymatic activity/volume] in Serum or Plasma by With P-5'-PAspartate Aminotransferase Lab Routine Mixed hyperlipidemia Expected: 12/17/2023 (Approximate), Expires: 12/16/2024[facility] Work Phone: Comment on above:Expected: 12/17/2023 (Approximate), Expires: 12/16/2024Start: 12-17-2023 End: 85-94-2967Ywzgd 1996 panel - Serum or PlasmaLipid Panel Lab Routine Mixed hyperlipidemia Expected: 12/17/2023 (Approximate), Expires: 12/16/2024[facility] Service Area Work Phone: Comment on above:Expected: 12/17/2023 (Approximate), Expires: 12/16/2024Start: 84-63-2851YOG, Provider: Mahamed Acharya, Status: Pen, Time: 10:30 AMFUV, Provider: Mahamed Acharya, Status: Pen, Time: 10:30 AMMP- [facility] DO Work Phone: Start: 02-30-7369Dmycmqvq identified in Urine by CultureKindred Hospital Lima CenterStart: 06-81-4415Cbvun chemistry [facility] Hospitaltart: 41-22-3228BxrayootyMercy Health St. Elizabeth [facility] Hospitaltart: 07-31-6562Opxlx [facility] CenterStart: 63-06-7524QoesoeyrnKindred Hospital Lima CenterStart: 24-61-8902Ugtab chemistry [facility] CenterStart: 81-70-2039YpadpffiiKindred Hospital Lima CenterStart: 62-19-0405Mrkxg chemistryKindred Hospital Lima CenterStart: 06-36-2388WowncarclKindred Hospital Lima CenterStart: 79-86-3858Mcjju chemistry [facility] CenterStart: 13-36-0115FgldhwrwaKindred Hospital Lima CenterStart: 96-77-5111Kaziy [facility] CenterStart: 24-87-4122WokxxgewtKindred Hospital Lima CenterStart: 39-91-1337Ohmvg chemistry [facility] CenterStart: 17-91-1957ZcefmzwzmKindred Hospital Lima CenterStart: 54-38-0644Ibslr chemistryKindred Hospital Lima CenterStart: 56-14-1376UigthtdgsKindred Hospital Lima CenterStart: 81-59-6943Opfum chemistry [facility] CenterStart: 04-30-2023 End: 19-18-7471XtnyqmodiKindred Hospital Lima CenterStart: 78-83-4141Huqbibga of Coronary Artery, One Artery with Drug-eluting Intraluminal Device, Percutaneous ApproachDilation of Coronary Artery, One Artery with Drug-eluting Intraluminal Device, Percutaneous ApproachFirCrystal Clinic Orthopedic Centertart: 04-29-2023 Fluoroscopy of Left Heart using Low Osmolar ContrastFluoroscopy of Left Heart using Low Osmolar ContrastMercy Health St. Elizabeth Youngstown Hospitaltart: 04-29-2023 Fluoroscopy of Multiple Coronary Arteries using Low Osmolar ContrastFluoroscopy of Multiple Coronary Arteries using Low Osmolar ContrastMercy Health St. Elizabeth Youngstown Hospitaltart: 19-86-7400Hhzzdnhvqns of Cardiac Sampling and Pressure, Left Heart, Percutaneous ApproachMeasurement of Cardiac Sampling and Pressure, Left Heart, Percutaneous ApproachMercy Health St. Elizabeth [facility] Hospitaltart: 03-93-8910Ipgoi chemistryMercy Health St. Elizabeth [facility] Hospitaltart: 04-29-2023 End: 74-03-2240LwdiqwrygMercy Health St. Elizabeth [facility] Hospitaltart: 04-28-2023 End: 86-05-7547DniydoxhoMercy Health St. Elizabeth Young[facility] Hospitaltart: 64-22-2737Detsxsji admissionMercy Health St. Elizabeth [facility] Hospitaltart: 35-70-3662Pohnamig to cardiologistMercy Health St. Elizabeth [facility] Hospitaltart: 38-47-0731Hucnoezh identified in Urine by CultureMercy Health St. Elizabeth Youngstown Hospitaltart: 04-24-2023 COVID-19 Vaccine ( season)COVID-19 Vaccine () [facility]: 92-09-7321Zmvmpllov vaccinationINFLUENZA (#1)[facility]: 88-76-8417Sunuxxpij for malignant neoplasm of cervix [facility] HealthcareStart: 75-98-2323Oefgddun identified in Urine by CultureUrine CultureMercy Health St. Elizabeth [facility] Hospitaltart: 40-96-3840Jmpciadw identified in Urine by CultureUrine CultureMercy Health St. Elizabeth [facility] Hospitaltart: 08-24-2022 DEPRESSION ASSESSMENTDEPRESSION ASSESSMENTHenry County Hospitaltart: 04-04-2022 Screening for malignant neoplasm of colonFIT-DNANONY HealthcareStart: 03-21-2022 Screening for malignant neoplasm of breastMammogramUnTriHealth: 84-77-1937JEM High Risk: (Elderly (60+) or Population) (1 - Risk 60-74 years 1-dose series)RSV High Risk: (Elderly (60+) or Population) (1 - Risk 60-74 years 1-dose series)[facility] CenterStguild: 52-24-4288XIU patients and/or patients aged 60+ years (1 - 1-dose 60+ series)RSV patients and/or patients aged 60+ years (1 - 1-dose 60+ series)[facility]: 87-57-6462XZDOKLQJ SCREENDIABETES SCREENHenry County Hospitaltart: 18-51-4650GJY Vaccines (1 of 1 - Standard series)MMR Vaccines (1 of 1 - Standard series)[facility]: 96-92-5952SFAOQADU VACCINE (2 of 3)SHINGRIX VACCINE (2 of 3) [facility]: 96-42-5748EEC High Risk: (Elderly (60+) or Population) (1 - Risk 50-74 years 1-dose series)RSV High Risk: (Elderly (60+) or Population) (1 - Risk 50-74 years 1-dose series)[facility]: 61-79-2679JYVZEWRHE (FIT-DNA)COLOGUARD (FIT-DNA)[facility] Start: 38-24-7702SycgojduxzrOPVTEDTNLRYBtpzpddiu ClinicStart: 12-28-2004 COLORECTAL CANCER SCREENINGCOLORECTAL CANCER SCREENINGHenry County Hospitaltart: 67-45-6894DB COLONOGRAPHYCT COLONOGRAPHYHenry County Hospitaltart: 68-81-3551HRVCI OCCULT BLOODFECAL OCCULT BLOODHenry County Hospitaltart: 83-70-0544WNNOD SCREENLIPID SCREENHenry County Hospitaltart: 94-36-4983FJYODNBJMDQMUWSGMXTEEQUTRECgzqsbyqr ClinicStart: 01-24-4399VfvjnoxreltDVRTEJEISGmdwrmoxp ClinicStart: 96-92-1174VYO TESTINGHPV TESTINGHenry County Hospitaltart: 98-61-4531WLcV/Tdap/Td Vaccines (1 - Tdap)DTaP/Tdap/Td Vaccines (1 - Tdap)[facility]: 89-63-1843COR TESTINGPAP TESTINGHenry County Hospitaltart: 75-36-2669Yrixlzdgo for malignant neoplasm of cervixC[facility] Clinic [facility]: 12-28-1978 Hepatitis A Vaccines (1 of 2 - Risk 2-dose series)Hepatitis A Vaccines (1 of 2 - Risk 2-dose series)[facility]: 12-28-1979 Pneumococcal vaccinationPneumococcal Vaccine (1 of 2 - PCV)[facility]: 68-94-7367Cvujc microalbumin profileDTAP,TDAP,TD (1 - Tdap) [facility]: 14-63-4892IBNZDASYI C SCREENINGHEPATITIS C SCREENING [facility]: 63-83-8235Kxrnbdcni C screeningHepatitis C Screening [facility]: 66-69-7451ATC SCREENINGHIV SCREENING [facility]tart: 57-73-5725Mhojyiil foot examinationDiabetes: Foot Exam [facility]: 01-52-5294Wedmjmyj screeningDiabetes: Retinopathy ScreeningC[facility] Clinic [facility] Hospital: [birth year]28-1965 Pneumococcal Vaccine: 65+ Years (1 of 2 - PCV)Pneumococcal Vaccine: 65+ Years (1 of 2 - PCV)[facility]: 87-11-0651Sjwnhlwrxzsb Vaccine: Pediatrics (0 to 5 Years) and At-Risk Patients (6 to 64 Years) (1 of 2 - PCV)Pneumococcal Vaccine: Pediatrics (0 to 5 Years) and At-Risk Patients (6 to 64 Years) (1 of 2 - PCV)[facility]: 75-41-7378QXUDN- 19 VACCINE (#1)COVID-19 VACCINE (#1)[facility]t: 65-21-7631Zthmjg wellness visitWelcome to Medicare VisitUnTriHealth: 69-31-1895Afcbyhwfbz A1c measurementDiabetes: Hemoglobin M5KXtsjyjbsgvTriHealth: 01-05-0955GEZ screeningHIV ScreeningC[facility]: 58-29-1568Nycag panelLipid PanelC[facility] Clinic [facility]: 11-15-0356Nccgkeipb for malignant neoplasm of colonUnTriHealth: 69-38-1889Iohruz Adult PhysicalYearly Adult PhysicalUnDayton Osteopathic HospitalAnion gap measurementFirKettering Health TroyBasophils [#/volume] in Blood by Automated countCommunity Regional Medical CenterBasophils/100 leukocytes in Blood by Automated countCommunity Regional Medical CenterCalculated LDL cholesterol levelCommunity Regional Medical CenterCholesterol.total/Cholesterol in HDL [Mass Ratio] in Serum or PlasmaCommunity Regional Medical CenterComprehensive metabolic 2000 panel - Serum or UC HealthEosinophils [#/volume] in Blood [facility] Medical CenterEosinophils/100 leukocytes in Blood by Automated [facility] for RehabilitationErythrocyte distribution width [Ratio] by Automated [facility] for RehabilitationErythrocytes [#/volume] in [facility] CenterGlucose measurement estimated from glycated hemoglobinCommunity Regional Medical CenterHematocrit [Volume Fraction] of [facility] CenterHemoglobin [Mass/volume] in [facility] CenterLeukocytes [#/volume] corrected for nucleated erythrocytes in Blood by Automated counCommunity Regional Medical CenterLeukocytes [#/volume] in [facility] CenterLymphocytes [#/volume] in Blood by Automated [facility] RehabilitationLymphocytes/100 leukocytes in Blood by Automated [facility] for RehabilitationMCH [Entitic mass] by Automated [facility] for RehabilitationMCHC [Mass/volume] by Automated [facility] for RehabilitationMCV [Entitic volume] by Automated [facility] Monocytes [#/volume] in Blood by Automated [facility] RehabilitationMonocytes/100 leukocytes in Blood by Automated [facility] for RehabilitationNeutrophils [#/volume] in Blood by Automated [facility] RehabilitationNeutrophils/100 leukocytes in Blood by Automated count [facility] Medical CenterNucleated erythrocytes [Presence] in Blood by Automated [facility] for RehabilitationPatient EducationKindred Hospital Lima Ctr Work Phone: Patient referralKindred Hospital Lima Ctr Work Phone: Platelet mean volume [Entitic volume] in Blood by Automated [facility] for RehabilitationPlatelets [#/volume] in Blood Community Regional Medical CenterVLDL cholesterol measurementCommunity Regional Medical CenterXR Cervical spine 5 ViewsLee [facility] Immunizations Immunization DateImmunizationNotesCare DaxzswnzFfuykfqd42-96-2614Pleumk Palomo Cap PPDH-XnU-6Vsgrapb Marck DO Work Phone: [facility] Work Phone: [phone]-SeN-6 mRNA (kfwkpubmqqe-mftw-htvxqlc) vaccinePamorgan CARTAGENA [facility]04-22-2022SARS-CoV-2, UnspecifiedSaleandra Lundberg GANG PUSHER Work Phone: [facility] CenterElcizzidhc36-01-9529zfjzyy vaccine recombinant Mahamed Acharya DO Work Phone: [facility] Work Phone: [phone]V-QvF-1 (COVID-19) mRNA BNT-162b2 vax Joe CARTAGENA [facility]03-09-2021SARS-CoV-2 (COVID-19) mRNA BNT-162b2 vaxJoe CARTAGENA [facility]02-13-2021zoster vaccine recombinantWillshane Acharya DO Work Phone: [facility] Work Phone: [phone], quadrivalent, recombinant, injectable influenza vaccine, preservative freeWilliakristina Acharya DO Work Phone: [facility] Work Phone: [phone]cjfkh virus vaccine, unspecified formulationWilliam Marck DO Work Phone: [facility]08-24-2015zoster vaccine, liveWilliam Marck DO Work Phone: [facility] Work Phone: [phone]uk Linh johnson MD Work Phone: [facility] Work Phone: NEGATED: Highlighted row has not occurred!11-24-2023 influenza virus vaccine, unspecified formulationCHLOÉ PIZANO [facility] Payers DatePayer CategoryPayerPolicy [id number] (Managed Care)[employer] MEDICARE VALUE PLAN [id number] Health [id number]-jjo [id number] Care (Private)[facility] [id number] Health [id number].3.345[id number] [id number]-[id number] 2.16.840.1.274070.3.57[id number] 2.16.840.1.786354.3.57[id number] 2.16.840.1.817784.3.579.[id number] 2.16.840.1.858000.3.579.[id number] 2.840.1.863025.3.579.2.50793-64-4595Duzoyua5931427 2.16840.1.661477.3.579.2.18892-42-0861Hgzstbm6414146 2.840.1.822396.3.579.2.15620-27-3997Zdlflhl3088515 2.840.1.215951.3.579.2.31798-14-8941Izidtst1665821 2.840.1.307976.3.579.2.66613-75-5114Plbtawz6993816 2.16.840.1.033030.3.579.2.49689-80-8950Xtjqxyb3447980 2.840.1.232346.3.579.2.36988-71-0501Scwkltt6449042 2.16840.1.997140.3.579.2.73821-30-0742Cttssfo4102504 2.840.1.865977.3.579.2.60634-67-5478Beluofk6891475 2.840.1.352092.3.579.2.16415-92-2444Erlhhxu8251335 2.16840.1.400275.3.579.2.89055-39-1980Ilufewz9427065 2.16.840.1.362442.3.579.2.02814-84-7906Xmrxtlv799154634 2.16.840.1.145728.3.579.2.41341-39-9417Gofacur356842578 2.16.840.1.312887.3.579.2.96638-53-1896Wqeicyw129901125 2.16.840.1.058340.3.57[id number] 2.16.840.1.628151.3.579.2.29505-43-1792Rtkgfwj262759994 2.16840.1.758492.3.579.2.67148-26-3563Oecvzyu0469541 2.16840.1.526099.3.579.2.103457-52-6790Lgybuqb2379500 2.160.1.772872.3.579.2.216873-55-3291Ltapmzl1783945 2.0.1.846518.3.579.2.152628-27-4865Ldwdjya9326423 2.160.1.473827.3.579.2.984960-42-6736Bukznzl6852187 2.160.1.774363.3.579.2.784254-38-1840Uznadju9632084 2.16.840.1.091103.3.579.2.964122-72-9635Rsebjvn6140455 2.16840.1.826787.3.579.2.685359-33-0825Yohgvhv0603383 2.16.840.1.239805.3.579.2.830081-68-0665Xmiuviu5991142 2.16840.1.000341.3.579.2.430127-26-7310Dqvwkat22396827 2.16.840.1.627473.3.579.2.09899-42-3129Zpghjtv35454692 2.16.840.1.024941.3.579.2.43125-04-9753Rcweuyp26999967 2.16.840.1.574518.3.579.2.15578-29-6436Pyifvsu94256741 2.16.840.1.555924.3.579.2.64422-27-1162Ejyizcp55113287 2.16.840.1.397280.3.579.2.42902-22-7449Zfzchom24163874 2.16.840.1.069418.3.579.2.05697-38-8108Kkkcnnb64173964 2..0.1.032621.3.579.2.05632-66-6405Atynptr31340656 2.16.840.1.302717.3.579.2.85334-72-3303Ktarhib725169367 2.16.840.1.783381.3.579.2.794608-74-2569Peurpvt320776710 2.16840.1.770793.19 98-26-9965Gkoypvl07029035 2.0.1.126123.19UnknownDEFDEPARTMENT OF VETERANS [facility] CLAIM[facility] [id number] 2.0.1.480720.3.579.2.665Xqhkcxw06315835 2.0.1.351002.3.579.2.531 Social History DateTypeDetailFacilityStart: 09-30-2023 End: 33-93-2346Bzu [facility]: 19-80-8682Duz Assigned At BirthFemaleFAccess Hospital Daytontart: 04-29-2023 End: 42-36-4658Iklzaqm smoking status NHISEx-smoker (finding)[facility]: [facility] End: 59-82-3570Lbavjjk smoking status NHISSmokes tobacco dailyBlanchard Valley [facility] History of tobacco useCigarette SmokerHenry County Hospitaltart: 01-08-2015 End: 68-32-0955Ufyvjnowlo smoked current (pack per day) - Aapgangv7Eoabmjtus ClinicComment on above:Coffee 1-2 daily Pop 2 cans daily Tea 1-2 weekly;February 28, 2023 - 1ppd;Start: 66-23-4911Zmknvaq intakeCurrent non-drinker of alcohol (finding)[facility] Hospitaltart: 15-21-2513Kmu Assigned At BirthNot on file [facility] Hospitaltart: 07-02-2023 End: 76-89-5918Zbwyfgr smoking status NHISNever smoked tobacco (finding) [facility] Hospitaltart: 11-24-2023 End: 88-40-2138Nsfmpps smoking statusHeavy tobacco smoker (finding)[facility] BellevueStart: 88-11-8548Nvcvcrr of tobacco useCurrent smokerUnDayton Osteopathic Hospital Work Phone: Start: 12-17-2023 End: 15-96-7685Qzluxeldf beverage intakeCurrent drinker of alcohol (finding) [facility] Work Phone: Start: 15-52-8490Tgwxuyj CommentrarelyUnDayton Osteopathic Hospital Work Phone: Start: 12-07-2023 End: 28-86-3083Jaqhmfmr to SARS-CoV-2 (event)Not sureUnDayton Osteopathic HospitalStart: 01-15-2024 End: 17-13-1394Vvnwrbc use and exposureSmokeless tobacco non-userNOMS Healthcare Start: 01-15-2024 End: 91-17-4001Nbtmrvddl beverage intakeLifetime non-drinker (finding)[facility] HealthcareStart: 98-28-7491Svfvrok Commentcaffeine: 1/2 cups per dayNOMS HealthcareStart: 89-32-0033Aneiwi identityIdentifies as female gender (finding) [facility] HealthcareStart: 18-94-3890Rqqjpqz Commentcaffeine: 1/2 cup per dayNOMS HealthcareTobacco smoking statusNeverExecutive Urology of [facility] BellevueStart: 04-29-2023 End: 88-57-1247YalZzbfdc (finding)[facility] Medical Equipment Procedure CodeEquipment CodeEquipment Original TextEquipment IdentifierDatesCL STENT VAIBHAV FRONTIER 4.0 X 26FDAStart: 98-05-3413JM STENT VAIBHAV FRONTIER 4.0 X 26 FDAStart: 80-97-1390QQ STENT VAIBHAV FRONTIER 4.0 X 26FDAStart: 46-54-2926NM STENT VAIBHAV FRONTIER 4.0 X 26FDAStart: 25-71-8270ND STENT VAIBHAV FRONTIER 4.0 X 26FDA Start: 79-73-1323BN STENT VAIBHAV FRONTIER 4.0 X 26FDAStart: 43-94-1837DY STENT VAIBHAV FRONTIER 4.0 X 26FDAStart: 32-35-3375OJ STENT VAIBHAV FRONTIER 4.0 X 26FDA Start: 04-29-2023 Goals DatePatient GoalDesired Activity/StatePersonal health goal Functional Status RjzfDozzywtnlqTxlegpVroqgorm84-06-7083Xdhafuvdwu szttit967/72[facility]10-30-2025Vital signs72 06/22/2025 10:09 AM EDT Cici Workman [facility] Work Phone: [phone]zUniversity Hospitals TriPoint Medical Center Work Phone: 1([phone]ngffgs StatusN/AExec[facility]05-07-2024Functional StatusN/AFEast [facility]04-02-2024Functional StatusN/AExec[facility]09-07-2023Functional statusPatient at BaselineMercy Health St. [facility] Work Phone: Mental Status SlleZemgfugbazFmkrziKcdjggbf00-64-3557Abcexgfea functionCognitive Status Patient at BaselineMer[facility] Health [facility] Work Phone: Clinical Notes 02-03-2022 to 06-22-2025 Note Date & EgrxXnqhNhferpfi62-36-5867 History of Present illness Narrative* Mahamed Acharya, DO - 06/22/2025 10:20 AM EDT Chief Complaint Patient presents with Follow-up 1 yr Subjective Brenda Segura is a 64 y.o. female 64-year-old female returns for annual cardiovascular follow-up and doing very well. She denies any cardiovascular events, complaints or nitrate usage or hospitalizations. She is still smoking and we counseled her for 5 minutes today on smoking cessation. She sustained inferior STEMI (aborted) in April 2023 with revascularization of the RCA with preserved LV function and no other coronary artery disease Recommendations: Obtain lipid panel, follow-up in 1 year with GANG PUSHER, smoking cessation counseling, ROS Vitals: 06/22/25 1009 BP: 118/72 BP Location: Left arm Patient Position: Sitting Pulse: 72 Weight: 70.3 kg (155 lb) Height: 1.702 m (5' 7 ) [...] normal. Allergies Eletriptan Current Medications Current Outpatient Medications Medication Instructions aspirin 81 mg, Daily atorvastatin (LIPITOR) 80 mg, oral, Nightly FeroSuL 325 mg, Daily with breakfast glimepiride (AMARYL) 4 mg, 2 times daily lisinopril 10 mg, oral, Daily metFORMIN (GLUCOPHAGE) 850 mg, 2 times daily (morning and late afternoon) metoprolol tartrate (LOPRESSOR) 50 mg, oral, 2 times daily pioglitazone (ACTOS) 30 mg, Daily sertraline (ZOLOFT) 25 mg, Daily Taltz Syringe 80 mg, Every 28 days Assessment/Plan 1. Coronary artery disease involving [place]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[place] heart without angina pectorisFollow Up In Cardiology 2. Mixed hyperlipidemia 3. Primary hypertension 4. Type 2 diabetes mellitus with other diabetic kidney complication (Multi) Scribe Attestation By signing my name below, I, Whitney Chang RN , Scribe attest that this documentation has [...] exam, discussion and plan. documented in this encounterUniversity Hospitals TriPoint Medical Center Work Phone: 1(132) 151-541310-30-2025 Instructions* Patient Instructions* Cici Workman MA - 06/22/2025 10:20 AM EDT Please bring all medicines, vitamins, and herbal supplements with you when you come to the office. Prescriptions will not be filled unless you are compliant with your follow up appointments or have a follow up appointment scheduled as per instruction of your physician. Refills should be requested at the time of your visit. documented in this encounterUniversity Hospitals TriPoint Medical Center Work Phone: 1(423) 229-948509-26-2025 Evaluation note* Diagnosis Onset Date Resolution Status Admit Date CAD (coronary artery disease) acuteSept2024 10:17amGERD (gastroesophageal reflux disease)acute May 19, 2025 10:17amMigrainesacuteSept2024 10:17am [facility] Work Phone: 1(221) 262-364705-27-2025 Evaluation note* Diagnosis Onset Date Resolution Status Admit Date Acute UTI acuteMay 2024 4:00pm [facility] Work Phone: 1(641) 908-577105-27-2025 Evaluation note* Diagnosis Onset Date Resolution Status Admit Date Acute UTI acuteMay 2024 4:00pmCAD (coronary artery disease)acuteJune 2024 1:24pmCervical radiculopathyacuteJune 2024 1:24pm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acuteJune 2024 1:24pmHigh cholesterolacuteJune 2024 1:24pmType 2 diabetes mellitus with hyperglycemiaacuteJune 2024 1:24pmType 2 diabetes mellitus with other circulatory complicationsacuteJune 2024 1:24pmType 2 diabetes mellitus with other specified complicationacuteJune 2024 1:24pm [facility] Work Phone: 1([phone]) 214-243901-28-2025 Hospital Discharge instructions Patient Education 09/20/2024 13:31:07 [...] your health care provider. General instructions Take prra-qow-sbjrahh and prescription medicines only as told by [...] provider. Document Revised: 04/29/2021 Document Reviewed: 04/29/2021 [employer] Patient Education 2023 [employer] Follow Up Care 09/19/2024 13:16:54 With:CHLOÉ PIZANO PA-C, URL Address: [address] [place] [address] When:Within 1 Month(s) [facility] 01-28-2025 NotePatient Education Obstetrics and Gynecology Overactive [...] health care provider. General instructions ??? Take mmog-tah-hceqclz and prescription medicines only as told by [...] you drink, and whe (more content not included)...[facility]01-02-2025 History of Present illness Narrative* Dominic Ballard, GANG PUSHER - 08/25/2024 10:30 AM EST Images from [...] daily with meals, Hold until 05/02/23 per [facility] metoprolol tartrate (LOPRESSOR) 50 mg, Oral, 2 [...] all orders for this visit: Primary hypertension ([facility]) Discussed current management plan. Goal BP [...] diabetes mellitus with other diabetic kidney complication ([facility]) Diabetic protocols reviewed. Discussed and updated [...] and kidney disease. ALDAIR (generalized anxiety disorder) ([facility]) She has not gotten the increased dose of zoloft yet. She did find out that she had a bill with the pharmacy and that is why it wasn't sent. She reports that they are sending it now that she has paid her bill. She will follow up 1 month after starting the increased dose. Type 2 diabetes mellitus with diabetic cataract ([facility]) documented in this encounterSaint Joseph Health CenterAvipmubmdk03-28-1933 History of Present illness Narrative* Dominic Ballard [...] suppose to be mailed to her through [employer] mail order, she has had this script [...] daily with meals, Hold until 05/02/23 per [facility] metoprolol tartrate (LOPRESSOR) 50 mg, Oral, 2 [...] the increased dose of 50 mg to [facility] again and she should contact us in 2 weeks if she has not had this in the past. Screening mammogram for breast cancer - Bilateral screening mammogram with tomosynthesis; Future ALDAIR (generalized anxiety disorder) ([facility]) Iron deficiency anemia, unspecified iron deficiency anemia type Will obtain urine and stool card as ordered by Zahira at last visit. documented in this encounterSaint Joseph Health CenterHuoyyfuegt53-91-3942 Evaluation note* Diagnosis Onset Date Resolution Status Admit Date Dysuria acuteNovember 2023 4:23pmCAD (coronary artery disease)acuteFebruary 2024 8:48amHigh cholesterolacuteFebruary 2024 8:48amPain in both upper extremitiesacuteFebruary 2024 8:48amType 2 diabetes mellitus with hyperglycemiaacuteFebruary 2024 8:48amWellness examinationacuteFebruary 2024 8:48am [facility] Work Phone: 1([phone]) 770-911011-14-2024 History of Present illness Narrative* Xiao Mascorro [...] Protein: Trace PH: 6.0 Blood: Negative Specific Leeds: 1.030 Ketone: Negative Glucose: Negative Neg Neg [...] 6 tablet; Refill: 0 documented in this encounterSaint Joseph Health CenterIsvmbrgnng56-60-4087 History of Present illness Narrative* Mahamed Acharya, DO - 06/22/2024 9:40 AM EDT Subjective Brenda Segura is a 63 y.o. female Chief Complaint Follow-up 63-year-old female returns for 6-month follow-up and is doing well she denies any cardiovascular events or complaints or nitrate usage or hospitalizations. She is performing all her work-related activities at [employer] and at home and daily chores without [...] Rfl: Assessment/Plan 1. Coronary artery disease involving [place]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[place] heart without angina pectorisFollow Up In Cardiology 2. S/P right coronary artery (RCA) stent placement 3. Primary hypertension 4. Mixed hyperlipidemia 5. Type 2 diabetes mellitus with other diabetic kidney complication 6. BMI 23.0-23.9, adult 7. Smoker 8. Old [place] (myocardial infarction) Scribe Attestation By signing my name below, IGisel LPN , Scribdez attest that this documentation has been prepared [...] exam, discussion and plan. documented in this encounterUniversity Hospitals TriPoint Medical Center Work Phone: 1(159) 705-133010-30-2024 Instructions* Patient Instructions* Gisel Choudhary LPN - [...] time of your visit. documented in this encounterUniversity Hospitals TriPoint Medical Center Work Phone: 1(519) 604-264910-25-2024 History of Present illness Narrative* Zahira Lundberg NP - 06/17/2024 9:00 AM EDT Images from the original note were not included. Brenda Segura is a 63 y.o. female presents with chief complaint of Annual Exam HPI: HPI Patient needs refill on all medication sent to [facility] service. Does not check blood sugars at [...] daily with meals, Hold until 05/02/23 per [facility] metoprolol tartrate (LOPRESSOR) 50 mg, 2 times [...] diabetes mellitus with other diabetic kidney complication ([facility]) - Hemoglobin A1c; Future - Comprehensive metabolic panel; Future - metFORMIN (Glucophage) 850 MG tablet; Take 1 tablet (850 mg) by mouth in the morning and 1 tablet(850 mg) in the evening. Take with meals. Hold until 05/02/23 per [facility]. - glimepiride (Amaryl) 4 MG tablet; Take [...] major depressive disorder, in partial remission (HCC) ([facility]) Orders: - sertraline (Zoloft) 25 MG tablet; Take 2 tablets (50 mg) by mouth Daily -Increase sertraline to 50mg daily. Reviewed importance of healthy diet and exercise, stress management, and social support. Type 2 diabetes mellitus with hyperglycemia, without long-term current use of insulin ([facility]) - pioglitazone (Actos) 30 MG tablet; Take 1 tablet (30 mg) by mouth in the morning. Type 2 diabetes mellitus with other diabetic kidney complication ([facility]) Orders: - Hemoglobin A1c; Future - [...] mg) by mouth Daily documented in this encounterSaint Joseph Health CenterPzqdnzkqpb76-64-1532 History of Present illness Narrative* Mateo Martinez [...] Protein: Trace PH: 6.5 Blood: Negative Specific Leeds: 1.020 Ketone: Negative Glucose: Negative Neg Neg [...] URINARY TRACT INFECTION (HTRX) documented in this encounterSaint Joseph Health CenterUxzomomcai10-87-2067 Hospital Discharge instructions Patient Education 05/02/2024 08:27:27 [...] reconstructed. Follow these instructions at home: Take vnii-nly-bkimvor and prescription medicines only as told by [...] provider. Document Revised: 06/04/2023 Document Reviewed: 06/04/2023 [employer] Patient Education 2023 [employer]. Follow Up Care 2023 11:25:29 With:MITZI UNGER, Joe Rosen, URL Address: [facility] [address] [place] [address]- When: Unknown [facility] 09-09-2024 NotePatient Education Urology Urethral Stricture [...] Follow these instructions at home: ? Take qvye-ejb-zhatbbw and prescription medicines only as told by [...] provider. Document Revised: 06/04/2023 Document Reviewed: 06/04/2023 [employer] Patient Education ? 2023 [employer] 2023 Hospital Discharge instructions Patient [...] Up Care 12/02/2023 10:52:42 With:Joe CARTAGENA Address: [address] [place] [address] Business (1) When:04/30/2024 11:22:46 [facility]05-07-2024 Note [id number] [facility] 2023 NoteCustom Cystoscopy with Urethral Dilation ? [...] you have a fever over 100 degreesFisher [facility]04-25-2024 History of Present illness Narrative* Mahamed [...] Rfl: Assessment/Plan 1. Coronary artery disease involving [place]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[place] heart without angina pectoris 2. Primary hypertension 3. Mixed hyperlipidemia 4. S/P right coronary artery (RCA) stent placement 5. Type 2 diabetes mellitus with other diabetic kidney complication (Multi) 6. Old [place] (myocardial infarction) 7. BMI 23.0-23.9, adult 8. [...] exam, discussion and plan. documented in this encounterUniversity Hospitals TriPoint Medical Center Work Phone: 1(326) 191-391604-25-2024 Instructions* Patient Instructions* Kellen Treviño LPN - [...] to Increase physical activity. documented in this encounterUniversity Hospitals TriPoint Medical Center Work Phone: 1(279) 919-299704-02-2024 Hospital Discharge instructions Patient Education 11/24/2023 10:26:34 [...] your health care provider. General instructions Take xeze-cdk-cmabrax and prescription medicines only as told by [...] provider. Document Revised: 04/29/2021 Document Reviewed: 04/29/2021 [employer] Patient Education 2022 [employer]. Follow Up Care 08/14/2023 14:19:20 With:CLHOÉ PIZANO PA-C, URL Address: [address] [place] [address] When: Unknown [facility] 04-02-2024 NoteChief Complaint Referral for recurrent [...] f/u w me 6 wks later in [place] Ordered: E&M of New Patient Moderate 45-59 Min 13160 2. Vaginal dryness (N89.8: Other specified noninflammatory [...] E&M of New Patient Moderate 45-59 Min 99223 3. Mixed incontinence urge and stress (N39.46: Mixed incontinence) c/o severe urgency, frequency, UUI at least once per day, also some JEAN PIERRE -Leaking w/coughing. BBSQ 22 Does drink coffee, tea & soda. Discussed reduction of bladder irritants. Pt education provided. -Will readdress after Cysto/UD if sx do not improve. Ordered: E&M of New Patient Moderate 45-59 Min 10816 4. Diabetes (E11.9: Type 2 diabetes mellitus without complications) A1C 09/15/23- 6.3 Metformin 850mg BID therapy. well controlled, likely not contributing to urinary sx. Ordered: E&M of New Patient Moderate 45-59 Min 99856 Orders: estradiol topical, See Instructions, 42.5 gm, Refill(s) 0, Apply pea sized amount vaginally dcbmtpbl3ulv, then 3x/wk there after., [id number], 170, cm, 11/24/23 9:34:00 EDT, Height/Length Dosing, 66, kg, 11/24/23 9:34:00 EDT, Weight Dosing 66220 Measure Post Void residual urine and/or bladder [...] Recent) 3074F Urnls Di (more content not included)...[facility]S Medical CenterComment on above:Result Comment: Electronically Signed By: CHLOÉ PIZANO PA-C\.br\Date and Time Signed: 11/23/2410:25 EDT\.br\Electronically Co-Signed By: Danuta Rodriguez MA\.br\Date and Time Co-Signed: 11/24/23 10:46 [id number] Evaluation note* Encounter Date Diagnosis Assessment Notes Treatment Notes Treatment Clinical Notes May, Dysuria (ICD-10 - R30.0) May,cute cystitis without hematuria (ICD-10 - N30.00)Reviewed UA, will treat patient for UTI today. Instructed patient to take antibiotic as prescribed,take with food, complete entire course of therapy even if feeling better. Allergies and recent antibiotic use was reviewed with patient. Pt to take pyridium as prescribed for urinary discomfort, advised patient that it will turn urine orange, explained to patient the importance of not taking longerthen 2 days. Advised patient urine culture was sent today and we will call with her results if antibiotic needs changed. Patient instructed to push fluids. Patient symptoms should improve in the zerc55-93 hours, if symptoms persist follow up with PCP or UC. Immediate eval by ER if back or flank pain, blood in urine, fever, chills, N/V, or any other concerning symptoms. Patient verbalizes understanding and is agreeable to treatment plan. [place] Other 09-07-2023 Hospital Discharge instructions Additional Instructions [...] doctor or pharmacist, without first calling the seed analyst who implanted the stent. If you require [...] weight lifting, stair steppers, etc. until the seed analyst approves these activities. Check with the seed analyst on your first follow-up visit. CALL YOUR PHYSICIAN at [phone]: -If bleeding should occur from the catheter insertion site- apply pressure to the site then immediately call us. -Report any fever, redness, drainage, increased swelling, or firmness at the catheter insertion site. Some bruising or slight swelling may be present at the time of discharge. -Should arm or leg become cold, numb, white, or blue, contact the seed analyst immediately. -IF you should experience episodes of [...] is recommended. Please call Central Scheduling at [phone] to schedule your appointment.] The attending seed analyst or [facility] nurse clinician should provide you with specific instructions regarding activity, diet, medications, and further follow up for you. Follow the medication instructions provided on your discharge. If the dosages and instructions on this sheet differ from the dosage and instructions on the bottle, follow the instructions on the bottle. [facility] is not responsible for incorrect prescription information provided by the patient during their visit. Do not stop your medications without consulting your health care provider. Please take the list with you to your next doctor's appointment.[facility] Work Phone: 1(437) 962-590509-07-2023 Miscellaneous Notes* Telephone Encounter - Primosc, Gretta Glo - 04/30/2023 2:00 PM EDT Pt's insurance is [id number]; created OON referral which requires financial clearance prior to scheduling. * Telephone Encounter - Francie Buenrostro MA - 04/21/2023 9:52 AM EDT Received referral to Cardiology for PSVT and records from [facility]. Sent to scheduling and also sent records of scanning. [facility] Discharge summary Author Simone Martinez [facility] April 30, 2023 4:08pmNote Date/TimeSept2022 9:37[place] [address] Discharge Summary Signed Patient: Brenda Segura MR#: [id number] : 1960 Acct:[id number] Age/Sex: 62 / F Adm Date: 3 Loc: Room: [address] [place] [address]: Simone Martinez DO Copies to: [...] of the right coronary artery, treated with drug-elutingstent during cardiac catheterization on 04/29/2023. Diabetes mellitus type 2, with hyperglycemia, uncontrolled with hemoglobin A1c of 8.9. Hypertension. Dyslipidemia. History of smoking in the past. Summary Hospital Course Hospital course: This is a 62-year-old woman who has been having problems with chest pain over the last few weeks. She had undergone outpatient work-up and [facility]. She had an episode of chest pain and was on the way to the emergency room here [facility] when an EKG showed ST [...] 11.4, BUN 14, Creatinine 0.77, Est GFR (CKD-EPI) > 60.0, Glucose 142 H, Calcium 9.0 04/30/23 04:14: Corrected WBC 8.8, Uncorrected WBC Count 8.8, RBC 4.04, Hgb 12.2, Hct 37.0, MCV 91.4, MCH 30.2, MCHC 33.1, RDW 13.6, Plt Count 230, MPV 8.5, Neut % (Auto) 70.7, Lymph % (Auto) 17.6, [place] % (Auto) 9.4, Eos % (Auto) 1.3, Baso % (Auto) 1.0, Nucleat RBC Rel Count 0.1, Neut # (Auto) 6.2,Lymph # (Auto) 1.5, [place] # (Auto) 0.8, Eos # (Auto) 0.1, [...] stent occurs in the first 2-3 weeks afterimplantation, you will need to take anticoagulants for at least 12-18 months. ANTICOAGULATION MEDICATION Aspirin 81mg once a day, Ticagrelor (Brilinta) 90mg twice a day STATIN MEDICATION Atorvastatin (Lipitor) 80 mg Drug-Eluting Stent (XAVIER) DO NOT discontinue Brilinta/Aspirin during the first few months regardless of what you are advised by your family doctor or pharmacist, without first calling the seed analyst who implanted the stent. If you require [...] weight lifting, stair steppers, etc. until the seed analyst approves these activities. Check with the seed analyst on your first follow-up visit. CALL YOUR PHYSICIAN at [phone]: -If bleeding should occur from the catheter insertion site- apply pressure to the site then immediately call us. -Report any fever, redness, drainage, increased swelling, or firmness at the catheter insertion site. Some bruising or slight swelling may be present at the time of discharge. -Should arm or leg become cold, numb, white, or blue, contact the seed analyst immediately. -IF you should experience episodes of angina, e.g. chest discomfort, heaviness, tightness, pressureburning with or without radiation to the neck, jaw, arms or back- use 1 Nitrostat tablet under yourtongue every 5-10 minutes and up to three tablets. IF NO RELIEF, CALL 911 or GO TO THE NEAREST EMERGENCY ROOM. -Please notify our office if you have recurrent angina. -[Cardiac Rehab Education Provided. Participation in the Cardiopulmonary Rehabilitation program is recommended. Please call Central Scheduling at [phone] to schedule your appointment.] The attending seed analyst or [facility] nurse clinician should provide you with specific instructions regarding activity, diet, medications, and further follow up for you. Follow the medication instructions provided on your discharge. If the dosages and instructions on this sheet differ from the dosage and instructions on the bottle, follow the instructions on the bottle. [facility] is not responsible for incorrect prescription information provided by thepatient during their visit. Do not stop your medications without consulting your health care provider. Please take the list with you to your next doctor's appointment. Instructions: Coronary Angioplasty (DC), Coronary Stenting (DC), Angina (DC), Chest Pain (DC), DrugEluting Stents Stand Alone Forms: Work/School Release Form [...] if needed.) Documented By: Simone Martinez DO 33 Signed By: <Electronically signed by Simone Martinez DO> 04/30/[address] [facility] Work Phone: 1(532) 665-188109-06-2023 Progress note Author Simone Martinez [facility] April 29, 2023 5:26pmNote Date/TimeSept2022 5:[place] [address] Hospitalist Progress Note Signed Patient: Brenda Segura MR#: [id number] : 1960 Acct:[id number] Age/Sex: 62 / F Adm Date: 3 Loc: Room: [address] [place] [address] Type: ADM IN Attending Dr: Simone Martinez DO Copies to: ~ Date of Service: 04/29/2023 Subjective Subjective Narrative: Patient returns from the [employer] this afternoon. Diagnosis is that she had an aborted STEMI in route to the hospital last evening but fortunately no significant rise in troponin levels and the finding was of an 80% hazy concentric tubular stenosis in the proximal right coronary artery which was jaron ated with a drug-eluting stent. An additional finding was of mild [...] she has a fairly active job at [employer]. There is a lot of carrying and liftingparts and very active on her feet with [...] Room Air 04/29/23 17:00 04/29/23 17:00 04/29/23 17:04/29/23 17:00 04/29/23 17:00 04/29/23 17:00 Narrative: [...] 04/29/23 09:00 04/29/23 09:36 Pantoprazole 40 Mg Tablet. PO 04/28/24 08:59 40 mg DAILY ENMANUEL [...] Tablet PO 04/28/24 20:59 BID [facility] A&P - Hospitalist Assessment/Plan (1) Unstable angina: [...] acute coronary syndrome with need for placement ofdrug-eluting stent. The inpatient order has been placed just as soon as I found out that the stent was placed in the coronary artery. Documented By: Simone Martinez DO 1713 Signed By: <Electronically signed by Simone Martinez DO> 04/29/[address] [facility] Work Phone: 1(994) 408-755609-06-2023 Consult note Author Annabel Acharya [facility] April 29, 2023 4:41pmNote Date/TimeSept2022 4:41[place] [address] Cardiology Consult Note Signed Patient: Brenda Segura MR#: [id number] : 1960 Acct:[id number] Age/Sex: 62 / F Adm Date: 3 Loc: 4 Room: [address] [place] [address] Type: ADM INOo Attending Dr: Simone Martinez DO Copies to: DO Bonita Reno DO W Scott Sheldon, DO~ Cardiology HPI History of Present Illness Consult Date: 04/29/23 Reason for Consult: Aborted STEMI/ACS HPI: Ms. Segura is a 62 year old female seen in interventional cardiology consultation at the request ofDr. Card ER attending last evening and hospitalist this morning in female patient who presents from [employer] with severe angina rated on a scale of 10 out of 10 initially, improved with aspirin and sublingual nitroglycerin spray in the squad. Initial ECG revealed inferior STEMI injury current however second ECG revealed resolution and upon arrival to the ER complete normalization of the ECG. Notably, patient has been to [place] and [place] ERs in the recent past for chest [...] and no additional complaints, except as documented [facility] Medical History (Updated 04/29/23 @ 16:41 by [...] mg/mL subcutaneous auto-injector (Taltz Autoinjector) 80 mg [id number] 04/28/23 [History Confirmed 04/28/23] lisinopril 10 mg [...] Lymph # (Auto) 1.4 2.8 (1.00-4.8) x10E3/uL [place] # (Auto) 0.8 0.8 (0.0-0.8) x10E3/uL Eos [...] signed by Annabel Acharya DO> 04/29/[address] [facility] Work Phone: 1(783) 365-951309-06-2023 Procedure [facility]09-06-2023 Procedure [facility]09-05-2023 History and physical note Author Olu Hull [facility] April 28, 2023 9:58pmNote Date/TimeSept2022 9:58[place] [address] Hospitalist H&P Signed Patient: Brenda Segura MR#: [id number] : 1960 Acct:[id number] Age/Sex: 62 / F Adm Date: 3 Loc: Room: [address] [place] [address] Type: ADM IN Attending Dr: Olu Hull [...] since then, she gets about an episode everyother day. No related toactivity and completely random. States episodes are usually self resolving and she was using nitro if the pain persisted which helped, but today the nitro didn't help so she called EMS. Upon arrival, chest pain had resolved, but she had another episode while en route and EKGdone at that time was concerning for STEMI. Cardiology immediately notified. Upon arrival, chest pain again resolved.EKG in the ED without ST elevations and intitial troponin was unremarkable. Due toher history and risk factors, cardiology recommended admission on heparin drip for cardiac cath tomorrow. At the time of exam, pt without complaints and denies chest pain, sob, abd pain, changes in appetite. Review of Systems Review of Systems All other systems reviewed & are negative unless noted below or in HPI [facility] Medical History (Updated 04/28/23 @ 21:54 by [...] % (Auto) 12.1 % (.) 04/28/23 18:46 [place] % (Auto) 7.4 % (.) 04/28/23 18:46 Eos % (Auto) 0.5 % (.) 04/28/23 18:46 Baso % (Auto) 1.5 % (.) 04/28/23 18:46 Nucleat RBC Rel Count 0.0 /100 WBC (0-0.5) 04/28/23 18:46 Neut # (Auto) 9.0 x10E3/uL (1.8-7.7) H 04/28/23 18:46 Lymph # (Auto) 1.4 x10E3/uL (1.00-4.8) 04/28/23 18:46 [place] # (Auto) 0.8 x10E3/uL (0.0-0.8) 04/28/23 18:46 [...] pH 6.0 (5.0-9.0) 04/28/23 19:30 Ur Specific [place] 1.023 (1.001-1.030) 04/28/23 19:30 Urine Protein 100 [...] EKG noted ST elevations whichwere not present onrepeat EKG in the ED. ED spoke with cardiology who recommended heparin drip and NPO at midnight forcardiac cath given risk factorsand history - initial [...] signed by Olu Hull DO> 04/28/23 2158 [facility] Work Phone: 1(931) 124-989207-14-2023 Evaluation note* Encounter Date Diagnosis Assessment Notes Treatment Notes Treatment Clinical Notes Feb, Dysuria (ICD-10 - R30.0) Diagnosis and dipstick findings with patient. Advised patient that I believe that dipstick findingsare correlating with elevated sugar levels, there are no signs of infection present on dip. We willsend urine out for culture, will call with results in 2 to 5 days, at time of results treatment plan may change. Patient reports that she does not frequently monitor her blood sugars because they arealways high. Educated patient that high glucose levels can also affect kidney function, and that she needs to monitor closely and have follow-up with her primary care provider. Advised patient to push fluids. Immediate evaluation in ER for signs/symptoms as discussed. Patient verbalizes understanding and is agreeable with treatment plan [facility] Other 05-30-2023 NoteCONSULTATION PROCEDURE DATE: 01/20/2023 PROCEDURE: [...] a marked reduction in her pain symptoms.[facility] [id number] NoteCONSULTATION CONSULTATION DATE: 12/25/2022 TO: Bonita Santos [...] our patients to inform us about any vpap-owl-csrsplt medications or herbal remedies/nutritional supplements/alternative remedies. 2. [...] treatment options with their primary care provider.[facility] [id number] Note CONSULTATION CONSULTATION DATE: 12/18/2022 TO: Bonita [...] our patients to inform us about any mioi-nft-mdckgii medications or herbal remedies/nutritional supplements/alternative remedies. 2. [...] treatment options with their primary care provider.[facility] [phone] NoteThis is a Telephone Appointment *This visit [...] her feet. Time Spent (more content not included)...[facility] 10-07-2022 NoteCONSULTATION CONSULTATION DATE: 10/07/2022 CHIEF COMPLAINT: [...] with Dr. Reis, orthopedic ankle specialist at [facility]. The patient reports 1/10 pain. The patient states it is not significant. Sitting mitigates the pain as does laying down. Standing, walking, activities aggravate the pain. The patient takes Motrin on a p.r.n. basis, wellbutrin 150 mg. The patient also has tramadol 50 mg she takes on an intermittent basis. The patient has not worked at [employer] for a few weeks now. The patient's [...] on a p.r.n. basis. CC: Dr. Barger [facility] [id number] Evaluation note* Encounter Date Diagnosis Assessment Notes Treatment Notes Treatment Clinical Notes Aug, Dysuria (ICD-10 - R30.0) Aug,cute cystitis with hematuria (ICD-10 - N30.01)Take medication as directed. Urine analysis shows abnormalities today in office. Urine culture will be sent to lab. Will call with results if warranted. Increase fluid intake. Follow hygiene guidelines such as wiping front to back, avoid using perfumed lotions, bath beads, bubble bath. Recommend follow up with primary care provider after treatment completed to make sure infection has cleared. [facility] Other 01-10-2023 NoteCONSULTATION CONSULTATION DATE: 09/02/2022 HISTORY [...] at the end of her work at [employer] aggravate the patient's pain. The patient states [...] proceed. CC: Chloé Dumont M.D. Christie Interiano, [facility]11-11-2022 NotePROCEDURE: XR ANKLE LT MIN 3 V, [...] Electronically authenticated by: CLARA GARCIA Date: 2022-07-04 06:46[facility]11-11-2022 NotePROCEDURE: XR ANKLE LT MIN 3 [...] Electronically authenticated by: CLARA GARCIA Date: 2022-07-04 06:46[facility]09-13-2022 Evaluation note* Encounter Date Diagnosis Assessment Notes Treatment Notes Treatment Clinical Notes Apr, Right acute otitis media (ICD-10 - H66.91) Ear infections are often a secondary infection caused from an URI, the flu or allergies. Take medication as directed. Complete all doses, even if you feel better. Follow up with primary care providerif no improvement of symptoms. Patient needs to follow up to have hearing retesting- [facility] [employer] Other 08-27-2022 Evaluation note* Encounter Date Diagnosis Assessment Notes Treatment Notes Treatment Clinical Notes Mar, Dysuria (ICD-10 - R30.0) Mar,cute cystitis with hematuria (ICD-10 - N30.01)Meds as prescribed. Push fluids. Urine sent for culture and pt will be notified of results if any ch abner needs to be made. Advised good hygeine and no sexual activity while on meds. Pt to f/u as needed with pcp for persistent or recurrent sx. Immediate eval in ER for abdominal pain, severe back pain, N/V/D, fever/chills, or severe dehydration. Pt understood and agreed to teatment plan. [facility] Other 06-13-2022 NoteOPERATIVE NOTE OPERATION DATE: 02/04/2022 [...] position. She was sedated by the nurse occupational therapy teacher. A bite block was placed in the [...] lesions. Patient tolerated procedure without any difficulty. [facility] Signed and Approved by: DR SARAI SKINNER . 02/06/2022 10:09:00[facility] complaint Narrative - Reported* 62-year-old female returns [...] rehab referral, follow-up otherwise in 6 mos [facility] 250 DO Work Phone: Evaluation + Plan note No data available for this section [facility] evaluation + Plan note Future Appointments Appointment Date:05/02/2024 09:30:00 AM Scheduled Provider:Joe CARTAGENA MD Location:[facility] Future Appointments Appointment Date:10/07/2024 09:30:00 AM Scheduled Provider: Location:[facility] Appointment Type:URO Nurse Visit Appointment Date:10/10/2024 11:40:00 AM Scheduled Provider:CHLOÉ PIZANO PA-C [facility] Office Visit [facility] evaluation + Plan note Future Appointments Appointment Date:10/07/2024 09:30:00 AM Scheduled Provider: Location:[facility] Appointment Type:URO Nurse Visit Appointment Date:10/10/2024 11:40:00 AM Scheduled Provider:CHLOÉ PIZANO PA-C [facility] Type:[facility]O Office Visit Diagnostic Tests Pending * Urine Culture 09/20/24 [facility] Evaluation + Plan note Future Appointments Appointment Date:10/10/2024 11:40:00 AM Scheduled Provider:CHLOÉ PIZANO PA-C [facility] Type:URO Office Visit [facility] evaluation + Plan note Future Appointments Appointment Date:10/10/2024 11:40:00 AM Scheduled Provider:CHLOÉ PIZANO PA-C Location:[facility] Appointment Type:URO Office Visit Diagnostic Tests Pending * Urine Culture 10/07/24 [facility] evaluation noteNo assessment information available [facility] Work Phone: Evaluation noteNo InformationNort Motion [employer] Other evaluation note* Diagnosis Onset Date Resolution Status ST segment changes on electrocardiogram acuteUnstable anginaacute [facility] Work Phone: evaluation note* Diagnosis Onset Date Resolution Status Atherosclerotic cardiovascular disease acuteDiabetesacuteFormer tobacco useacuteHTN (hypertension)acuteHyperlipemia acuteST segment changes on electrocardiogramacuteUnstable anginaacute [facility] Work Phone: Evaluation note* Diagnosis Coronary artery disease involving [place]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[place] heart without angina pectoris Primary hypertension Unspecified essential hypertension Mixed hyperlipidemia S/P right coronary artery (RCA) stent placement Type 2 diabetes mellitus with other diabetic kidney complication (Multi) [place] (myocardial infarction) Old myocardial infarction BMI 23.0-23.9, adult Former smoker Personal history of tobacco use, presenting hazards to health documented in this encounter [facility] Work Phone: Evaluation note* Diagnosis Acute cystitis without hematuria- Primary Dysuria documented in this encounter [facility] HealthcareEvaluation note* Diagnosis Mixed hyperlipidemia (CMS/HCC)- Primary Mixed hyperlipidemia Primary hypertension (CMS/HCC) Unspecified essential hypertension 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) Iron deficiency anemia, unspecified iron deficiency anemia type Recurrent major depressive disorder, in partial remission (HCC) (CMS/HCC) Type 2 diabetes mellitus with hyperglycemia, without long-term current use of insulin (CMS/HCC) documented in this encounter [facility] HealthcareEvaluation note* Diagnosis Coronary artery disease involving [place]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[place] heart without angina pectoris S/P right coronary artery (RCA) stent placement Primary hypertension Unspecified essential hypertension Mixed hyperlipidemia Type 2 diabetes mellitus with other diabetic kidney complication BMI 23.0-23.9, adult Smoker Tobacco use disorder [place] (myocardial infarction) Old myocardial infarction documented in this encounter [facility] Work Phone: Evaluation note* Diagnosis Acute cystitis without hematuria- Primary Dysuria documented in this encounter [facility] HealthcareEvaluation note* Diagnosis Mixed hyperlipidemia ([facility]/HCC)- Primary Mixed hyperlipidemia Recurrent major depressive disorder, in partial remission (HCC) ([facility]) Screening mammogram for breast cancer ALDAIR (generalized anxiety disorder) ([facility]) Generalized anxiety disorder Recurrent UTI Urinary tract infection, site not specified Iron deficiency anemia, unspecified iron deficiency anemia type documented in this encounter [facility] HealthcareEvaluation note* Diagnosis Primary hypertension ([facility]/HCC)- Primary Unspecified essential hypertension Type 2 diabetes mellitus with other diabetic kidney complication ([facility]/HCC) ALDAIR (generalized anxiety disorder) ([facility]) Generalized anxiety disorder Type 2 diabetes mellitus with diabetic cataract ([facility]) Type II or unspecified type diabetes mellitus with ophthalmic manifestations, not stated as uncontrolled documented in this encounter [facility] HealthcareEvaluation note* Diagnosis Primary hypertension ([facility]) Unspecified essential hypertension documented in this encounter [facility] HealthcareEvaluation note* Diagnosis Onset Date Resolution Status Admit Date CAD (coronary artery disease) acuteSeptember 2024 10:17amGERD (gastroesophageal reflux disease)acute May 19, 2025 10:17amMigrainesacuteSeptember 2024 10:17am [facility] Work Phone: Evaluation note* Diagnosis Coronary artery disease involving [place]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[place] heart without angina pectoris- Primary Mixed hyperlipidemia Primary hypertension Unspecified essential hypertension Type 2 diabetes mellitus with other diabetic kidney complication (Multi) documented in this encounter [facility] Work Phone: History and physical note Author Olu [facility] April 28, 2023 9:58pmNote Date/TimeSeptember 2022 9:58[place] [address] Hospitalist H&P Signed Patient: Brenda Segura MR#: [id number] : 1960 Acct:[id number] Age/Sex: 62 / F Adm Date: 3 Loc: 4 Room: [address] [place] [address] Type: ADM IN Attending Dr: Olu Hull [...] since then, she gets about an episode everyother day. No related toactivity and completely random. States episodes are usually self resolving and she was using nitro if the pain persisted which helped, but today the nitro didn't help so she called EMS. Upon arrival, chest pain had resolved, but she had another episode while en route and EKGdone at that time was concerning for STEMI. Cardiology immediately notified. Upon arrival, chest pain again resolved.EKG in the ED without ST elevations and intitial troponin was unremarkable. Due toher history and risk factors, cardiology recommended admission on heparin drip for cardiac cath tomorrow. At the time of exam, pt without complaints and denies chest pain, sob, abd pain, changes in appetite. Review of Systems Review of Systems All other systems reviewed & are negative unless noted below or in HPI [facility] Medical History (Updated 04/28/23 @ 21:54 by [...] % (Auto) 12.1 % (.) 04/28/23 18:46 [place] % (Auto) 7.4 % (.) 04/28/23 18:46 Eos % (Auto) 0.5 % (.) 04/28/23 18:46 Baso % (Auto) 1.5 % (.) 04/28/23 18:46 Nucleat RBC Rel Count 0.0 /100 WBC (0-0.5) 04/28/23 18:46 Neut # (Auto) 9.0 x10E3/uL (1.8-7.7) H 04/28/23 18:46 Lymph # (Auto) 1.4 x10E3/uL (1.00-4.8) 04/28/23 18:46 [place] # (Auto) 0.8 x10E3/uL (0.0-0.8) 04/28/23 18:46 [...] pH 6.0 (5.0-9.0) 04/28/23 19:30 Ur Specific [place] 1.023 (1.001-1.030) 04/28/23 19:30 Urine Protein 100 [...] EKG noted ST elevations whichwere not present onrepeat EKG in the ED. ED spoke with cardiology who recommended heparin drip and NPO at midnight forcardiac cath given risk factorsand history - initial [...] signed by Olu Hull DO> 04/28/23 2158 [facility] Work Phone: History general Narrative - Reported* Type Description Date Medical History HTN Medical HistoryHigh CholesterolemiaMedical HistoryDepressionMedical History MigrainesMedical HistoryDiabetesSurgical HistoryRight knee arthroscopySurgical HistoryLeft knee repair due to breakSurgical HistoryT&ASurgical HistoryBTL Surgical Historyleft breast /2017Surgical Historytubal ligationSurgical Historyablasion heartSurgical HistoryLeft ankle surgery Dr. Interiano12/2021 Hospitalization HistorySee past surgical hx [facility] Other History general Narrative - Reported* Type Description Date Medical History HTN Medical HistoryHigh CholesterolemiaMedical HistoryDepressionMedical History MigrainesMedical HistoryDiabetesMedical HistoryCAD (coronary artery disease) Surgical HistoryRight knee arthroscopySurgical HistoryLeft knee repair due to breakSurgical HistoryT&ASurgical HistoryBTLSurgical Historyleft breast biopsy 04/2017Surgical Historytubal ligationSurgical Historyablasion heartSurgical HistoryLeft ankle surgery Dr. Interianourgical Historycardiac stent Hospitalization HistorySee past surgical [facility] Other Hospital Discharge instructions Additional Instructions Take the antibiotic cephalexin twice a day for 7 days take until completed Rest as needed Increase oral fluids Continue your other medication Follow-up with your family doctor Follow-up with cardiology Return to the ER for chest pain shortness of breath worsening dizziness fever vomiting or any other concernsMer[facility] Work Phone: Hospital Discharge instructions No data available for this section [facility] Hospital Discharge instructionsAmbulatory Orders* Referral to Gastroenterology Location: None Selected [facility] Work Phone: Progress note Author [facility] April 30, 2023 4:36pmNote Date/TimeSept2022 4:36[place] [address] Cardiology Progress Note Signed Patient: Pocock,Brenda A MR#: [id number] : 1960 Acct:[id number] Age/Sex: 62 / F Adm Date: 3 Loc: Room: [address] [place] [address] Type: ADM IN Attending Dr: Simone Martinez DO Copies to: ~ Date of Service: 04/30/2023 Subjective Principal diagnosis: Aborted inferior STEMI Interval history: Ms. Segura is a 62 year old female seen in interventional cardiology consultation at the request ofDr. Card ER attending last evening and hospitalist this morning in female patient who presents from [facility] with severe angina rated on a scale of 10 out of 10 initially, improved with aspirin and sublingual nitroglycerin spray in the squad. Initial ECG revealed inferior STEMI injury current however second ECG revealed resolution and upon arrival to the ER complete normalization of the ECG. Notably, patient has been to [facility] ERs in the recent past [...] % (Auto) 70.7 Lymph % (Auto) 17.6 [place] % (Auto) 9.4 Eos % (Auto) 1.3 Baso % (Auto) 1.0 Nucleat RBC Rel Count 0.1 Neut # (Auto) 6.2 Lymph # (Auto) 1.5 [place] # (Auto) 0.8 Eos # (Auto) 0.1 [...] MPV Neut % (Auto) Lymph % (Auto) [place] % (Auto) Eos % (Auto) Baso % (Auto) Nucleat RBC Rel Count Neut # (Auto) Lymph # (Auto) [place] # (Auto) Eos # (Auto) Baso # [...] MPV Neut % (Auto) Lymph % (Auto) [place] % (Auto) Eos % (Auto) Baso % (Auto) Nucleat RBC Rel Count Neut # (Auto) Lymph # (Auto) [place] # (Auto) Eos # (Auto) Baso # [...] 163 Signed By: <Electronically signed by Annabel Acharya, > 04/30/[address] [facility] Work Phone: Progress note No data available for this section [facility] reason for referral (narrative)* Consultation (Routine) - AuthorizedSpecialtyDiagnoses / ProceduresReferred By ContactReferred To ContactCardiology Diagnoses Coronary artery disease involving [place]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[place] heart without angina pectoris Procedures Follow Up In Cardiology Mahamed Acharya DO [address] [facility] [address] [place] [address] Mahamed Acharya, [address] [facility] [address] [place] [address] Referral IDStatusReasonStart DateExpiration DateVisits RequestedVisits [id number]/25/20244/25/[id number] [facility] Work Phone: Advance Directives No Advanced Directives Records Found Advance Directive Response Recorded Date/ Time Advance Directives No January 11 12:37pm Advance Directive Response Recorded Date/ Time Advance Directives No January 11 1:37pm Summary Purpose Family History No Family History Records Found Relationship Condition Age at Onset Recorded Date/T stacie father Myocardial infarction Unknown Diabetes mellitusUnknownbrotherDiabetes mellitusUnknownfamily memberMalignant neoplasmUnknown Unknown Family Member Name Dates Details Family history of hypertensi on: Mother(V17.49, Z82.49) Status:ActiveFamily history of myocardial infarction: Father(V17.3, Z82.49) Status:ActiveFamily history of diabetes mellitus: Father(V18.0, Z83.3) Status:ActiveNo pertinent family history: Sister(V49.89, Z78.9) Status:ActiveFamily history of CABG: Brother(V17.49, Z82.49) Status:Active Unknown Family Member Name Dates Details Family history of hypertensi on: Mother(V17.49, Z82.49) Status:ActiveFamily history of myocardial infarction: Father(V17.3, Z82.49) Status:ActiveFamily history of diabetes mellitus: Father(V18.0, Z83.3) Status:ActiveNo pertinent family history: Sister(V49.89, Z78.9) Status:ActiveFamily history of CABG: Brother(V17.49, Z82.49) Status:Active Relationship Condition Age at Onset Recorded Date/T stacie father Myocardial infarction Unknown Diabetes mellitusUnknownbrotherDiabetes mellitusUnknownfamily memberMalignant neoplasmUnknownfatherHeart diseaseUnknownHypertensionUnknownDeceasedUnknown family memberDeceasedUnknownmotherHypertensionUnknown Chief Complaint and Reason for Visit Chief Complaint Dysuria Chief Complaint R30.0 Chest PainReason for VisitST segment changes on electrocardiogram Unstable angina Chief Complaint R30.0 Chest PainReason for VisitAtherosclerotic cardiovascular disease Diabetes Former tobacco use HTN (hypertension) Hyperlipemia ST segment changes on electrocardiogram Unstable angina Chief Complaint Chest Pain R30.0 dizzy, illReason for VisitAtherosclerotic cardiovascular disease Diabetes Former tobacco use HTN (hypertension) [...] spec ified complication January 27, 2025 1:24pm Chief Complaint Admit Date Amb Documentation May 17, 2025 9:59am [facility] Chest pain due to GERD April 10:17am Reason for Visit Admit Date CAD (coronary artery disease) May 19, 2025 10:17am GERD (gastroesophageal reflux disease) S eptember 2024 10:17am Migraines May 19, 2025 10:17am Chief Complaint Admit Date Amb Documentation May 17, 2025 9:59am [facility] Chest pain due to GERD April 10:17am Refer Dr Kristina Lizama: GERD May 30, 2025 9:13am Additional Source Comments REASON FOR VISIT (unrecogniz ed section and content) ReasonCommentsFollow-up1 yrSpecialtyDiagnoses / ProceduresReferred By Contact Referred To ContactCardiology Diagnoses Coronary artery disease involving [place]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[place] heart without angina pectoris Procedures Follow Up In Cardiology Mahamed Acharya, [place] [address] Phone: tel: fax: Mahamed Ahcarya, [place] [address] Phone: tel: fax: Referral IDStatusReasonStart DateExpiration DateVisits RequestedVisits [id number]/30/202410/[id number] Referral IDStatusReasonStart DateExpiration DateVisits RequestedVisits [id number]/25/20244/[id number] Outside Medical RecordsReasonCommentsAnnual ExamReasonCommentsFollow-upReasonCommentsMed Refill Care Teams (unrecognized sec tion and content) Team Status: Active Member Role Status Dates Amy Lizama MD Primary Care Provider Active Team Status: Active Member Role Status Dates Amy Lizama MD Primary Care Provider Active Start: May 12, 2025 Tc Craig , DOAttending ProviderActiveStart: May 12, 2025 Team Status: Active Member Role Status Dates Amy Lizama MD Primary Care Provider Active Start: May 17, 2025 Camilla Canseco , CMAAttending ProviderActiveStart: May 17, 2025 Team Status: Inactive Member Role Status Dates Amy Lizama MD Primary Care Provider Active Start: May 19, 2025 End: May 19, 2025Amy Lizama , MDAttending ProviderActiveStart: May 19, 2025 End: May 19, 2025 Team Status: Inactive Member Role Status Dates RJ Bagley Attending Provider Active Team Status: Inactive Member Role Status Dates Kathya Chang APRN Attending Provider Active Team Status: Active Member Role Status Dates Bonita Santos DO Primary Care Provider Active Team Status: Inactive Member Role Status Dates Kathya Chang APRN Attending Provider Active PHYSICIAN NO FAMILYPrimary Care ProviderActive Team Status: Active Member Role Status Dates Joe Meneses PA-C Emergency Provider Active Bonita Santos , DOPrimary Care ProviderActiveKyle T Hull , DOAdmit Provider, Attending ProviderActive Team Status: Inactive Member Role Status Dates Joe Meneses PA-C Emergency Provider Active Bonita Katty Lowe , DOPrimary Care ProviderActiveKyle T Hull , DOAdmit Provider ActiveSimone Martinez , DOAttending ProviderActiveTeam MemberRelationship SpecialtyStart DateEnd Date Sergio Mcknight [address] [place] [address] PCP - Xxtgnjy83/13/04 Team Status: Inactive Member Role Status Dates Bonita Santos DO Primary Care Provider Active Chloé Shea APRN GANG PUSHER-CAttending ProviderActive Team Status: Inactive Member Role Status Dates Bonita Santos DO Primary Care Provider Active Emily Grimes , [employer] WORKER-BCEmergency ProviderActiveTeam MemberRelationship SpecialtyStart DateEnd Date Bonita Santos DO [address] [place] [address] PCP - General05/08/23Team MemberRelationshipSpecialtyStart DateEnd Date Chloé Cummings MD [address] [place] [address] PCP - GeneralFamily Medicine11/26/23 Dominic Ballard NP [address] [place] [address] Nurse PractitionerFamily Medicine11/26/23Team MemberRelationshipSpecialtyStart DateEnd Date Chloé Cummings MD [address] [place] [address] PCP - GeneralFamily Medicine11/26/23 Dominic Ballard NP [address] [place] [address] Nurse PractitionerFamily Medicine11/26/23Team MemberRelationshipSpecialtyStart DateEnd Date Chloé Cummings MD [address] [place] [address] PCP - GeneralFamily Medicine11/26/23 Dominic Ballard NP [address] [place] [address] Nurse PractitionerFamily Medicine11/26/23Team MemberRelationshipSpecialtyStart DateEnd Date Chloé Cummings MD [address] [place] [address] PCP - GeneralFamily Medicine11/26/23 Domniic Ballard NP [address] [place] [address] Nurse PractitionerFamily Medicine11/26/23Team MemberRelationshipSpecialtyStart DateEnd Date Bonita Santos DO [address] [place] [address] PCP - General05/08/23Team MemberRelationshipSpecialtyStart DateEnd Date Chloé Cummings MD [address] [place] [address] PCP - GeneralFamily Medicine11/26/23 Dominic Ballard NP [address] [place] [address] Nurse PractitionerMercyone Cl[facility] Hospitally Medicine11/26/23Team MemberRelationshipSpecialtyStart DateEnd Date Chloé Cummings MD [address] [place] [address] PCP - Generalmily Medicine11/26/23 Dominic Ballard NP [address] [place] [address] Nurse PractitionerMercyone Clive [facility] Hospitally Medicine11/26/23Team MemberRelationshipSpecialtyStart DateEnd Date Chloé Cummings MD [address] [place] [address] PCP - GeneralFamily Medicine11/26/23 Dominic Ballard NP [address] [place] [address] Nurse Practitioner[facility]11/26/23Team MemberRelationshipSpecialtyStart DateEnd Date Chloé Cummings MD [address] [place] [address] PCP - [facility]Saint [facility] Medicine11/26/23 Dominic Ballard NP [address] [place] [address] Nurse PractitionerHouston [facility]11/26/23Team MemberRelationshipSpecialtyStart DateEnd Date Chloé Cummings MD [address] [place] [address] PCP - GeneralHouston [facility]11/26/23 Dominic Ballard NP [address] [place] [address] Nurse Practitioner[facility]11/26/23Team MemberRelationshipSpecialtyStart DateEnd Date Chloé Cummings MD [address] [place] [address] PCP - GeneralHouston [facility]11/26/23 Dominic Ballard NP [address] [place] [address] Nurse PractitionerHouston [facility]11/26/23 Team Status: Active Member Role Status Dates NON STAFF Primary Care Provider Active Team Status: Inactive Member Role Status Dates Bonita Santos DO Primary Care Provider Active Start: July 22, 2024 End: July 22Gigi Macdonald ProviderActiveStart: July 22, 2024 End: July 22, 2024 Team Status: Inactive Member Role Status Dates Ciera Saldana APRN Attending Provider Active S tart: July 22, 2024 End: July 22, 2024NON STAFFPrimary Care ProviderActiveStart: July 22, 2024 End: July 22, 2024 Team Status: Inactive Member Role Status Dates NON STAFF Primary Care Provider Active Start: October 04, 2024 End: October 04, 2024Charo Downing ProviderActiveStart: October 04, 2024 End: October 04, 2024Team MemberRelationshipSpecialtyStart DateEnd Date Chloé Cummings MD [address] [place] [address] PCP - [facility]Saint [facility] Medicine11/26/23 Dominic Ballard NP [address] [place] [address] Nurse PractitionerSaint [facility]'S Hospital Medicine11/26/23 Team Status: Inactive Member Role Status Dates NON STAFF Primary Care Provider Active Start: January 17, 2025 End: January 17, 2025Gigi Painting ProviderActiveStart: January 17, 2025 End: January 17, 2025 Team Status: Inactive Member Role Status Dates Shu Painter APRN Attending Provider Active Start: January 17, 2025 End: January 17, 2025 Team Status: Inactive Member Role Status Dates Amy Lizama MD Primary Care Provide r, Attending Provider Active Start: January 27, 2025 End: January 27, 2025 Team Status: Inactive Member Role Status Dates Amy Lizama MD Primary Care Provider Active Start: May 30, 2025 End: May 30, 2025Gigi Whitmore ProviderActiveStart: May 30, 2025 End: May 30, 2025Team MemberRelationshipSpecialtyStart DateEnd Date Amy Lizama MD [address] [place] [address] [address] [place] [id number] PCP - GeneralFamily Dapsavdz68/30/25 Goals (unrecognized section and content) Goals may be documented in a n alternate section INFORMATION SOURCE (unrecogn ized section and content) DATE CREATED AUTHOR 11/04/2022 [facility] DATE CREATED AUTHOR AUTHOR'S ORGANIZ ATION 01/05/2023 [facility] DATE CREATED AUTHOR AUTHOR'S ORGANIZ ATION 01/30/2023 [facility] DATE CREATED AUTHOR AUTHOR'S ORGANIZ ATION 05/05/2023 [facility] DATE CREATED AUTHOR AUTHOR'S ORGANIZ ATION 05/10/2023 [facility] DATE CREATED AUTHOR AUTHOR'S ORGANIZ ATION 08/26/2024 [facility] DATE CREATED AUTHOR AUTHOR'S ORGANIZ ATION 09/24/2024 [facility] DATE CREATED AUTHOR AUTHOR'S ORGANIZ ATION 10/09/2024 [facility] DATE CREATED AUTHOR AUTHOR'S ORGANIZ ATION 10/10/2024 [facility] DATE CREATED AUTHOR AUTHOR'S ORGANIZ ATION 10/11/2024 [facility] DATE CREATED AUTHOR AUTHOR'S ORGANIZ ATION 10/16/2024 [facility] DATE CREATED AUTHOR AUTHOR'S ORGANIZ ATION 01/20/2025 [facility] DATE CREATED AUTHOR AUTHOR'S ORGANIZ ATION 06/24/2025 [facility] Comments (unrecognize d section and content) In the event this informatio n is protected by the Federal Confidentiality of Alcohol and Drug Abuse Patient Records regulations: The Federal rules restrict any use of the information to criminally investigate or prosecute any alcohol or drug abuse patient.[facility] FOR RECORDS PERTAINING TO PATIENTS WHO [...] BE BASED ON THE PRIMARY CLINICAL RECORDS. [facility] [employer] [facility]. provides no warranty or guarantee of the accuracy or completeness of information in this document.
[2025-08-01 10:51] LABS: Alanine Aminotransferase 24 U/L (14-59); Aspartate Amino Transferase 13 U/L (15-37); Cholesterol 130 mg/dL (<=200); HDL Cholesterol 61 mg/dL (40-60); Triglycerides 79 mg/dL (<=150); VLDL CHOLESTEROL 15.8 mg/dL
[2025-08-02 08:10] LABS: C-Reactive Protein, Cardiac 0.60 mg/L (0.00-3.00)
== END 2025-08-01 10:06 | disposition home or self-care (01) ==
LOC: LAB 10:09
PROVIDERS: PCP Family Medicine; Visit Provider Internal Medicine Cardiovascular Disease
DX: Z95.5 Presence of coronary angioplasty implant and graft (principal); I25.2 Old myocardial infarction; E78.2 Mixed hyperlipidemia; I25.10 Atherosclerotic heart disease of native coronary artery without angina pectoris
CPT/HCPCS: 36415; 80061; 84450; 84460; 86140